=== PATIENT | female | born 1980 | race Caucasian/White ===

== ENCOUNTER 2023-02-20 09:48 | Outpatient (OUT) | payer OTHER, SELFPAY ==
--- NOTE | 2023-02-20 09:59 | US_ITS ---
[address] [address] Patient Name: HILLARY ALFARO MRN: [id number] date: 1980 Sex: F Assigned Patient Location: US Current Patient Location: Accession/Order Number: [id number] Exam Date: 02/20/2023 10:16 Report Date: 02/21/2023 09:10 At the request of: IVAN KARIMI Procedure: US OB transvaginal EXAMINATION: US OB transvaginal HISTORY: Missed Menses N92.6 COMPARISON: No relevant comparison available. FINDINGS: Transvaginal images Hilario intrauterine gestation Gestational sac: 3.31 cm, 8 weeks 2 days CRL: 2.71 cm, 9 weeks 4 days Yolk sac: 2.3 mm Heart rate: 179 bpm Cervix: Closed, 4.1 cm Uterus: Normal, anteverted The ovaries are normal in appearance Clinical age: 10 weeks 1 day Clinical JALIL: 09/17/2023 Ultrasound age: 9 weeks 4 days Ultrasound JALIL: 09/21/2023 US/US OB transvaginal IMPRESSION: Hilario intrauterine gestation measuring 9 weeks 4 days Electronically authenticated by: RIMMA BATRES Date: 02/21/2023 09:10
== END 2023-02-20 09:49 | disposition home or self-care (01) ==
LOC: US 09:48
PROVIDERS: PCP Family Medicine; Visit Provider Obstetrics & Gynecology
DX: Z34.91 Encounter for supervision of normal pregnancy, unspecified, first trimester (principal); N92.6 Irregular menstruation, unspecified
CPT/HCPCS: 76817

== ENCOUNTER 2023-02-27 07:35 | Outpatient (OUT) | payer OTHER, SELFPAY ==
[2023-02-27 08:11] LABS: Basophils Percent Auto 0.3 % (0.2-2.0); Eosinophils Absolute Auto 0.2 10^3/uL (0.0-0.7); Eosinophils Percent Auto 2.4 % (0.9-7.0); Hematocrit 40.1 % (36.0-48.0); Hemoglobin 13.7 g/dL (12.0-16.0); Immature Granulocytes Abs Auto 0.01 10^3/uL (0.00-0.03); Immature Granulocytes Pct Auto 0.1 % (0.0-0.5); Lymphocytes Absolute Auto 1.3 10^3/uL (1.2-3.8); Lymphocytes Percent Auto 19.3 % (20.5-60.0); Mean Corpuscular HGB Conc 34.2 g/dL (29.9-35.2); Mean Corpuscular Hemoglobin 30.6 pg (26.7-34.0); Mean Corpuscular Volume 89.7 fL (81.0-99.0); Mean Platelet Volume 10.1 fL (9.5-13.5); Monocytes Absolute Auto 0.5 10^3/uL (0.3-0.8); Monocytes Percent Auto 6.8 % (1.7-12.0); Neutrophils Absolute Auto 4.9 10^3/uL (1.4-6.5); Neutrophils Percent Auto 71.1 % (43.0-75.0); Platelet Count 248 10^3/uL (150-450); Red Blood Count 4.47 10^6/uL (4.20-5.40); Red Cell Distribution Width 13.2 % (11.0-15.0); White Blood Count 6.9 10^3/uL (4.0-11.0)
[2023-02-27 08:23] LABS: Thyroid Stimulating Hormone 1.386 uIU/mL (0.358-3.740)
[2023-02-27 08:29] LABS: Estimated Average Glucose 100 mg/dL; Glycohemoglobin A1C 5.1 % (4.5-6.2)
[2023-02-28 06:08] LABS: Rubella Antibodies, IgG 3.04 index (Immune >0.99)
[2023-02-28 07:08] LABS: HBsAg Screen Negative (Negative); HCV Ab Non Reactive (Non Reactive); HIV Ab/p24 Ag Screen Non Reactive (Non Reactive)
[2023-02-28 10:08] LABS: Rapid Plasma Reagin, Quant Non Reactive (NonRea<1:1)
== END 2023-02-27 07:36 | disposition home or self-care (01) ==
LOC: LAB 07:36
PROVIDERS: PCP Family Medicine; Visit Provider Obstetrics & Gynecology
DX: Z34.80 Encounter for supervision of other normal pregnancy, unspecified trimester (principal); N92.6 Irregular menstruation, unspecified
CPT/HCPCS: 36415; 83036; 84443; 85025; 86592; 86762; 86803; 86850; 86900; 86901; 87086; 87340; 87389

== ENCOUNTER 2023-04-22 19:50 | Outpatient (REF) | payer OTHER, SELFPAY ==
[2023-04-27 14:12] LABS: Age Gdln ACOG Testing Note (.); HPV Aptima Negative (Negative); IGP, Aptima HPV, rfx 16/18,45 Note (.)
== END 2023-04-22 19:51 | disposition home or self-care (01) ==
LOC: LAB 19:50
PROVIDERS: PCP Family Medicine; Visit Provider Obstetrics & Gynecology
DX: Z01.419 Encounter for gynecological examination (general) (routine) without abnormal findings (principal)
CPT/HCPCS: 87624; G0145

== ENCOUNTER 2023-04-24 07:16 | Outpatient (OUT) | payer OTHER, SELFPAY ==
[2023-04-26 00:06] LABS: AFP Value 46.2 ng/mL (.); Gest. Age on Collection Date 18.6 weeks (.); Insulin Dep Diabetes No (.); Maternal Age At EDD 43.8 yr (.); OSBR Risk 1 IN 10000 (.); Results Report (.)
== END 2023-04-24 07:17 | disposition home or self-care (01) ==
LOC: LAB 07:17
PROVIDERS: PCP Family Medicine; Visit Provider Obstetrics & Gynecology
DX: Z34.92 Encounter for supervision of normal pregnancy, unspecified, second trimester (principal)
CPT/HCPCS: 36415; 82105

== ENCOUNTER 2023-06-05 07:14 | Outpatient (OUT) | payer OTHER, SELFPAY ==
[2023-06-05 08:29] LABS: Basophils Percent Auto 0.3 % (0.2-2.0); Eosinophils Absolute Auto 0.2 10^3/uL (0.0-0.7); Hematocrit 36.3 % (36.0-48.0); Hemoglobin 11.8 g/dL (12.0-16.0); Immature Granulocytes Abs Auto 0.03 10^3/uL (0.00-0.03); Immature Granulocytes Pct Auto 0.3 % (0.0-0.5); Lymphocytes Absolute Auto 1.5 10^3/uL (1.2-3.8); Lymphocytes Percent Auto 16.1 % (20.5-60.0); Mean Corpuscular HGB Conc 32.5 g/dL (29.9-35.2); Mean Corpuscular Hemoglobin 31.3 pg (26.7-34.0); Mean Corpuscular Volume 96.3 fL (81.0-99.0); Mean Platelet Volume 9.9 fL (9.5-13.5); Monocytes Absolute Auto 0.7 10^3/uL (0.3-0.8); Monocytes Percent Auto 7.2 % (1.7-12.0); Neutrophils Absolute Auto 6.7 10^3/uL (1.4-6.5); Neutrophils Percent Auto 74.1 % (43.0-75.0); Platelet Count 232 10^3/uL (150-450); Red Blood Count 3.77 10^6/uL (4.20-5.40); Red Cell Distribution Width 14.1 % (11.0-15.0); White Blood Count 9.1 10^3/uL (4.0-11.0)
[2023-06-05 08:33] LABS: Glucose 1 Hour 122 mg/dL
== END 2023-06-05 07:15 | disposition home or self-care (01) ==
LOC: LAB 07:16
PROVIDERS: PCP Family Medicine; Visit Provider Obstetrics & Gynecology
DX: Z34.92 Encounter for supervision of normal pregnancy, unspecified, second trimester (principal)
CPT/HCPCS: 36415; 82950; 85025

== ENCOUNTER 2023-06-24 09:07 | Outpatient (OUT) | payer OTHER, SELFPAY ==
--- NOTE | 2023-06-24 09:10 | US_ITS ---
[address] [address] Patient Name: HILLARY ALFARO MRN: [id number] date: 1980 Sex: F Assigned Patient Location: US Current Patient Location: US Accession/Order Number: [id number] Exam Date: 06/24/2023 09:11 Report Date: 06/24/2023 09:57 At the request of: HENRY AGUILA Procedure: US OB growth EXAMINATION: US OB growth HISTORY: SGA COMPARISON: 02/20/2023 FINDINGS: Heart Rate: 131.0 bpm Amniotic Fluid Volume: 15.4 cm Number: 1.0 Position: Cephalic presentation, longitudinal lie Maximum Vertical Pocket: 3.8 cm cm 4.9 cm cm 3.4 cm cm 3.4 cm cm BIOMETRY: BPD: 6.8 cm cm; 27 weeks 2 days; 20% HC: 25.7 cmcm; 27 weeks 6 days , 22% AC: 22.7 cm cm; 27 weeks 1 days, 21% FL: 5.4 cm cm; 28 weeks 5 days; 62.2 % % EFW: 1122.9 grams, 2 lbs. 8 oz., 33% FL/AC: 24.0 FL/BPD: 80.4 HC/AC: 1.1 GESTATIONAL AGE: Age by EDC: 27 weeks 6 days JALIL by EDC: 09/17/2023 Age by US: 27 weeks 5 days JALIL by US: 09/18/2023 US/US OB growth IMPRESSION: Normal interval growth Electronically authenticated by: RIMMA BATRES Date: 06/24/2023 09:57
--- OUTSIDE RECORDS SUMMARY | 2023-06-24 09:16 | XMS_ITS | CCD ---
Author Name Unknown Address [address] [place] [address] Organization [facility] Care Team Providers Care Impress Associate Name Role Phone Megan Oconnor Unavailable ANDRES, DR LEE Admitting Unavailable KARASIK, DR LEE Attending Unavailable REQUEST, NONE LISTED Primary Care Unavaila ble KARASIK, DR LEE Consulting Unavailable ZIEBER, DR ALEXI Johnson Consulting Unavailable HOY, DR GEORGE Admitting Unavailable HOY, DR GEORGE Attending Unavailable REQUEST, NONE LISTED Primary Care Unavaila ble HOY, DR GEORGE Consulting Unavailable KARASIK, DR LEE Admitting Unavailable KARASIK, DR LEE Attending Unavailable REQUEST, DR REVELES LISTED Primary Care Unavaila ble KARASIK, DR LEE Consulting Unavailable KARASIK, DR LEE Admitting Unavailable KARASIK, DR LEE Attending Unavailable REQUEST, NONE LISTED Primary Care Unavaila ble KARASIK, DR LEE Consulting Unavailable WEST, DR RIMMA Harrison Consulting Unavailable KARASIK, DR LEE Admitting Unavailable KARASIK, DR LEE Attending Unavailable REQUEST, DR REVELES LISTED Primary Care Unavaila ble KARASIK, DR LEE Consulting Unavailable KARASIK, DR LEE Admitting Unavailable KARASIK, DR LEE Attending Unavailable REQUEST, DR REVELES LISTED Primary Care Unavaila ble KARASIK, DR LEE Consulting Unavailable KARASIK, DR LEE Admitting Unavailable KARASIK, DR LEE Attending Unavailable REQUEST, NONE LISTED Primary Care Unavaila ble KARASIK, DR LEE Consulting Unavailable ZIEBER, DR ALEXI Johnson Consulting Unavailable KARAMLOU, THOMAS Consulting Unavailable SHARPZACHARIAH Consulting Unavailable JELLY II, REYNA Consulting Unavailable KARASIK, DR LEE Admitting Unavailable KARASIK, DR LEE Attending Unavailable REQUEST, NONE LISTED Primary Care Unavaila ble KARASIK, DR LEE Consulting Unavailable Abel Sun Primary Care Provider RIMMA STERLING Attending Unavailable ABEL SUN Primary Care Unavailable YULISSA JAIME Referring Unavailable YULISSA JAIME Attending Unavailable ABEL SUN Primary Care Unavailable HENRY AGUILA Attending Unavailable IVAN KARIMI Attending Unavailable Allergies Allergy Classification Reported Allergen(s) Allergy Type Date of Onset Reaction(s) Facility (4 sources) Seasonal allergy; Translations: [SEASONAL ALLERGIES] Allergy to substance 05-11-2014 Cough [facility] Medications Current Medications Medication Drug Class(es) Dates Sig (Normalized) Sig (Original) [id number] 200 actuat albuterol 0.09 mg/actuat metered dose inhaler (1 source) beta2-Adrenergic Agonist Start: 2 take 2 puff(s) by inhalation every four hours as needed Albuterol Sulfate HFA 108 (90 Base) MCG/ACT 2 puffs as needed Inhalation every 4 hrs Nov, Active Clotrimazole (1 source) Azole Antifungal Start: 2 Clotrimazole 1 % 1 application to affected area Externally Twice a day for 28 day(s) Nov, Active methylPREDNISolone 4 mg oral tablet (1 source) Corticosteroid Start: 2 methylPREDNISolone 4 MG as directed Orally Once a day for 6 days Nov, Active Completed/Discontinued Medications Medication Drug Class(es) Dates Sig (Normalized) Sig (Original) cetirizine hydrochloride 10 mg oral capsule (3 sources) Histamine-1 Receptor Antagonist Cetirizine (ZYRTEC) 10 mg cap Take 1 capsule by mouth as needed. 0 Active Comment on above: Take 1 capsule by [facility] as needed. Docusate (3 sources) DOCUSATE SODIUM (COLACE ORAL) Take 1 tablet by mouth as needed. 0 Active Comment on above: [facility]. fluticasone propionate 0.05 mg/actuat metered dose nasal spray (3 sources) Corticosteroid fluticasone (FLONASE) 50 mcg/actuation nasal spray Indications: Bilateral sensorineural hearing loss , Autoimmune disorder of inner ear Use 1 Clinton in each nostril as needed. 0 Active Comment on above: Use 1 Clinton in each nostril as needed. multivitamin (DAILY MULTIPLE) tablet (3 sources) take 1 tablet by mouth once daily multivitamin (DAILY MULTIPLE) tablet Take 1 tablet by mouth once daily. 0 Active Comment on above: Take 1 tablet by yesika once daily. predniSONE 10 mg oral tablet (3 sources) Start: 09-02-2017 predniSONE (DELTASONE) 10 mg tablet Take by mouth four (4) tabs x3 days; then three (3) tabs x3days; then two (2) tabs x3 days; then one (1) tab a day x3 days 30 tablet 0 09/02/2017 Active Comment on above: Take by mouth four ( 4) tabs x3 days; then three (3) tabs x3days; then two (2) tabs x3 days; then one (1) tab a day x3 days Triamcinolone (1 source) Corticosteroid Start: 12-19-2019 Kenalog -40 mg Nov, 40 mg Problems Active Problems Problem Classification Problem Date Documented Date Episodic/Chronic Deficiency and other anemia (4 sources) Iron deficiency anemia, unspecified; Translations: [IRON DEFICIENCY ANEMIA UNSPECIFIED] Onset: 07-29-2022 Episodic Deficiency and other anemia (1 source) Anemia, unspecified; Translations: [ANEMIA UNSPECIFIED] Onset: 07-30-2022 Episodic Other complications of (5 sources) Missed ; Translations: [MISSED ] Onset: 07-17-2022 Episodic Other ear and sense organ disorders (1 source) Unspecified sensorineural hearing loss; Translations: [UNS SENSORINEURAL HEARING LOSS] Onset: 07-22-2022 Chronic Other ear and sense organ disorders (4 sources) Asymmetrical sensorineural hearing loss; Translations: [Sensorineural hearing loss, bilateral] Onset: 09-28-2017 Chronic Other ear and sense organ disorders (4 sources) Sensorineural hearing loss, bilateral; Translations: [Sensorineural hearing loss, bilateral] Onset: 10-15-2016 Chronic Other ear and sense organ disorders (1 source) Cochlear prosthesis in situ; Translations: [Cochlear implant status] Chronic Other ear and sense organ disorders (3 sources) Sensorineural hearing loss in left ear; Translations: [Unspecified sensorineural hearing loss] 08-13-2017 Chronic Other and delivery including normal (9 sources) Encounter for supervision of other normal , first trimester; Translations: [Encounter for supervision of normal , unspecified, unspecified trimester] Onset: 06-20-2022 Episodic Spontaneous (1 source) Complete or unspecified spontaneous without complication; Translations: [COMPLETE/UNS SPONT AB W/O COMP] Onset: 07-17-2022 Episodic Unclassified (1 source) CONTACT W/AND (SUSP) EXPOS COVID-19; Translations: [CONTACT W/AND (SUSP) EXPOS COVID-19] Onset: 07-17-2022 Past or Other Problems Problem Classification Problem Date Documented Date Episodic/Chronic Chronic obstructive pulmonary disease and bronchiectasis (1 source) Bronchitis, not specified as acute or chronic Onset: 11-24-2021 Resolved: 11-24-2021 Episodic Conditions associated with dizziness or vertigo (6 sources) Vertigo of central origin; Translations: [Vertigo of central origin] Onset: 05-24-2014 05-24-2014 Episodic Immunizations and screening for infectious disease (1 source) Encounter for screening for human papillomavirus (HPV); Translations: [ENC SCREENING HUMAN PAPILLOMAVIRUS] Onset: 11-30-2021 Episodic Mycoses (1 source) Superficial mycosis, unspecified Onset: 11-24-2021 Resolved: 11-24-2021 Episodic Other aftercare (3 sources) Cochlear prosthesis in situ; Translations: [Encounter for other specified surgical aftercare] Onset: 09-29-2017 09-29-2017 Episodic Other screening for suspected conditions (not mental disorders or infectious disease) (4 sources) Encounter for screening for malignant neoplasm of cervix; Translations: [ENC SCREENING MALIG NEOPLASM CERV] Onset: 11-27-2021 Episodic Results Test Name Value Interpretation Reference Range Facility [facility] 10[facility]10-2022 [facility] Tele[facility] (HNQ) AMY ALFARO ([id number]) 1980 F Date Time Provider Department 10/10/22 LEO ATKINSON During your visit today, we recorded the following information about you: Leo Atkinson 10/10/2022 3:52 PM Signed Housekeeping/Laundry: Katerina Mina Patient: Hasmukh Alfaro 1980 Clinic: [facility] Scientific Software Developer: Dr. Yulissa Jaime Appointment Length: 45 Minutes What are you looking to accomplish?: I?d like to learn more about the Nucleus 8 and the process of upgrading Recipient's Stated Reason for Upgrading ? Clinic Request - Scientific Software Developer recommended it ? Useful Life - Processor more than 5 years old ? Change in Hearing Needs - Hearing performance improvement ? Quality of Life ? Technology Advancement New Technology Education ? Reviewed features and benefits of the Nucleus 8 sound processor ? Explained what is the same vs. what is different between current and new processor Reviewed Order Form Options ? Recipient will move forward with the N8 Upgrade once she receives the estimated out of pocket cost from insurance ? Recipient would like to take advantage of the complementary RTW (ready to wear) ? Processor will ship to Recipients Home Upgrade Process ? Discussed upgrade process and Cochlear services ? Explained what the process entails and what the next steps are Acquisition Methods ? Recipient will receive [id number] cost estimate once order placed Next Steps ? If recipient decides to move forward with pursuing a Nucleus 8 upgrade and provides us with the necessary order information, we will start an order on their behalf. You will hear from Cochlear?s Investigator Utility Bill Complaints team, via email/DocuSign to gain your approval or regarding an LMN to allow this patient to move forward in the process. Following completion of the upgrade process, I will invite the recipient to schedule time for a complimentary onboarding with our [employer] team so they can begin to maximize the use of their new Cochlear equipment. 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 - fluticasone (FLONASE) 50 mcg/actuation nasal spray Use 1 Clinton in each nostril as needed. - multivitamin (DAILY MULTIPLE) tablet Take 1 tablet by mouth once daily. - Cetirizine (ZYRTEC) 10 mg cap Take 1 capsule by mouth as needed. Problem List As Of Date 10/10/2022 Noted Resolved Vertigo of central origin [H81.4] 05/24/2014 Peripheral vertigo, unspecified [H81.399] 05/24/2014 Sensorineural hearing loss, bilateral [H90.3] 10/15/2016 Left-sided sensorineural hearing loss [H90.5] Sensorineural hearing loss, asymmetrical [H90.3]09/28/2017 Cochlear implant follow-up [Z48.89, Z96.21] 09/29/2017 Encounter Status:Closed by LEO ATKINSON on 10/10/22 [facility] CNOVon 09-24-2022 CNOV Office Visit (OTOLCR ) AMY ALFARO ([id number]) 1980 F Date Time Provider Department 09/24/22 9:30 AM RIMMA STERLING OTOLJAMES During your visit today, we recorded the following information about you: Rimma Sterling PA-C 09/24/2022 9:53 AM Signed History of Present Illness Ms. AMY ALFARO is a 41 year old year old female presenting for: referred by SELF And is a patient of DO Abel Card DO [address] [id number] Communication will be via the electronic record and letter. Returns for follow-up of Left cochlear implant placed 09/02/[address] Yeung. Reports that the cochlear implant has been very beneficial for her hearing. Has had to replace the coil because it stopped functioning. Otalgia: no pain at magnet site since switching magnet strength one year ago Otorrhea: denies Ear Pressure/Fullness: denies Hearing Loss: reports hearing stable in Right, got a new hearing aid last year Tinnitus: complains of intermittent bilateral tinnitus Dizziness/Imbalance: denies Facial Numbness, Weakness or Tingling: denies Medical History: ACTIVE PROBLEM LIST Vertigo of Central Origin Peripheral Vertigo, Unspecified Sensorineural Hearing Loss, Bilateral Left-Sided Sensorineural Hearing Loss Sensorineural Hearing Loss, Asymmetrical Cochlear Implant Follow-Up Surgical History: PAST SURGICAL HISTORY Procedure Laterality Date DENTAL SURGERY PROCEDURE wisdom teeth extraction PAST SURGICAL HISTORY OF none Allergies: ALLERGIES Allergen Reactions Seasonal Allergies Cough Medications: Current Outpatient Medications on File Prior to Visit Medication Sig predniSONE (DELTASONE) 10 mg tablet Take by mouth four (4) tabs x3 days; then three (3) tabs x3days; then two (2) tabs x3 days; then one (1) tab a day x3 days DOCUSATE SODIUM (COLACE ORAL) Take 1 tablet by mouth as needed. fluticasone (FLONASE) 50 mcg/actuation nasal spray Use 1 Clinton in each nostril as needed. multivitamin (DAILY MULTIPLE) tablet Take 1 tablet by mouth once daily. Cetirizine (ZYRTEC) 10 mg cap Take 1 capsule by mouth as needed. No current facility-administered medications on file prior to visit. Social History: FAMILY HISTORY Problem Relation Age of Onset Allergies Mother seasonal Osteoporosis Mother low bone density Allergies Father seasonal Diabetes Father Allergies Sister seasonal Allergies Brother seasonal Asthma Maternal Grandmother Breast Cancer Paternal Grandmother Diabetes Maternal Grandfather Heart Maternal Grandfather Diabetes Maternal Aunt Diabetes Maternal Uncle Diabetes Paternal Aunt Diabetes Paternal Uncle No Ocular Disease No Family History Social History Tobacco Use Smoking status: Never Smokeless tobacco: Never Substance Use Topics Alcohol use: No Drug use: No Review of Systems: Positive: As above Negative: Fever, shortness of breath Objective: Last menstrual period 07/25/2017. Appearance: Well appearing, alert, in no acute distress, well-hydrated, well nourished. Communication: Able to speak and communicates clearly Head/Face: normocephalic, no masses, lesions, tenderness or abnormalities Facial nerve: Normal 1/6 bilaterally Skin: no skin lesions or scarring on face Ophthalmic: Full ocular motility intact; pupils symmetric Ears: AD EAC clear. TM intact without perforation or retraction. Middle ear aerated. EAC clear. TM intact without perforation or retraction. Middle ear aerated. Post-auricular incision well healed. Magnet site without any erythema or inflammation. Nose: external exam with straight profile Oropharynx: Uvula hangs midline; mucosa is pink and moist; tonsils present Neck: No cervical or supraclavicular lymphadenopathy Neuro/Psych.: Alert and oriented - no nystagmus Cranial nervesIII, IV, : EOM normal VII: Normal strength in all divisions IX, X: Normal voice, platal elevation and sensation XII: Tongue mobility normal Gait: normal for age Assessment: Z96.[address] (primary encounter diagnosis) H90.3 Sensorineural hearing loss, asymmetrical H90.3 Sensorineural hearing loss, bilateral Plan: Established with practice of Dr. Audra Umanzor for management of cochlear implant Medically cleared for any replacement or upgrade cochlear implant parts Follow-up in 2-3 years to stay established with practice Rimma Sterling PA-C Otology Medical Decision Making: Problems: Low: Stable chronic illness Risk: Minimal: Minimal risk from testing/treatment Medical Decision Making Level: 2 - Straightforward Rimma Sterling PA-C 09/24/2022 9:[address] Audra Umanzor use his name on paperwork Referring Provider: SELF [[id number]] Allergies As of Date: 09/24/2022 Noted Allergy Reaction SEASONAL ALLERGIES 1 (more content not included)... Normal [facility] CBC AUTO DIFFon 07-29-2022 BASO # 0.0 103/ul Normal 0.0-0.1 [facility] Comment on above: Performed By: #### C BC #### [facility] [address] [address] [address] Jani Haywood Basophils/100 WBC (Bld) 0.6 % Normal 0.2-2.0 [facility] Comment on above: Performed By: #### C BC #### [facility] [address] [address] [address] Jani Haywood EO # 0.1 103/ul Normal 0.0-0.7 [facility] Comment on above: Performed By: #### C BC #### [facility] [address] [place] [address] Dr. Jani Haywood Eosinophils/100 WBC (Bld) 2.5 % Normal 0.9-7.0 [facility] Comment on above: Performed By: #### C BC #### [facility] [address] [place] [address] Dr. Jani Haywood Erythrocyte distribution width (RBC) [Ratio] 13.7 % Normal 11.0-15.0 [facility] Comment on above: Performed By: #### C BC #### [facility] [address] [place] [address] Dr. Jani Haywood Hematocrit (Bld) [Volume fraction] 40.3 % Normal 36.0-48.0 [facility] Comment on above: Performed By: #### C BC #### [facility] [address] [place] [address] Dr. Jani Haywood Hemoglobin (Bld) [Mass/Vol] 12.7 g/dL Normal 12.0-16.0 [facility] Comment on above: Performed By: #### C BC #### [facility] [address] [place] [address] Dr. Jani Haywood IG # 0.01 10e3/ul Normal 0.00-0.03 [facility] Comment on above: Performed By: #### C BC #### [facility] [address] [place] [address] Dr. Jani Haywood IG % 0.2 % Normal 0.0-0.5 [facility] Comment on above: Performed By: #### C BC #### [facility] [address] [place] [address] Dr. Jani Haywood LYMPH # 1.8 103/ul Normal 1.2-3.8 [facility] Comment on above: Performed By: #### C BC #### [facility] [address] [place] [address] Dr. Jani Haywood Lymphocytes/100 WBC (Bld) 35.2 % Normal 20.5-60.0 [facility] Comment on above: Performed By: #### C BC #### [facility] [address] [place] [address] Dr. Jani Haywood MANUAL DIFF REQ NO Normal [facility] Comment on above: Performed By: #### C BC #### [facility] [address] [place] [address] Dr. Jani Haywood MCH (RBC) [Entitic mass] 30.5 pg Normal 26.7-34.0 [facility] Comment on above: Performed By: #### C BC #### [facility] [address] [place] [address] Dr. Jani Haywood MCHC (RBC) [Mass/Vol] 31.5 g/dL Normal 29.9-35.2 [facility] Comment on above: Performed By: #### C BC #### [facility] [address] [place] [address] Dr. Jani Haywood MCV (RBC) [Entitic vol] 96.9 fL Normal 81.0-99.0 [facility] Comment on above: Performed By: #### C BC #### [facility] [address] [place] [address] Dr. Jani Haywood MONO # 0.4 103/ul Normal 0.3-0.8 [facility] Comment on above: Performed By: #### C BC #### [facility] [address] [place] [address] Dr. Jani Haywood Monocytes/100 WBC (Bld) 8.1 % Normal 1.7-12.0 [facility] Comment on above: Performed By: #### C BC #### [facility] [address] [place] [address] Dr. Jani Haywood NEUT # 2.8 103/ul Normal 1.4-6.5 [facility] Comment on above: Performed By: #### C BC #### [facility] [address] [place] [address] Dr. Jani Haywood Neutrophils/100 WBC (Bld) 53.4 % Normal 43.0-75.0 [facility] Comment on above: Performed By: #### C BC #### [facility] [address] [address] [address] Jani Haywood Platelet mean volume (Bld) [Entitic vol] 10.0 fL Normal 9.5-13.5 [facility] Comment on above: Performed By: #### C BC #### [facility] [address] [address] [address] Jani Haywood PLT 271 103/ul Normal 150-450 [facility] Comment on above: Performed By: #### C BC #### [facility] [address] [address] [address] Jani Haywood RBC 4.16 106/ul Critically low 4.20-5.40 [facility] Comment on above: Performed By: #### C BC #### [facility] [address] [place] [address] Dr. Jani Haywood WBC 5.2 103/ul Normal 4.0-11.0 [facility] Comment on above: Performed By: #### C BC #### [facility] [address] [place] [address] Dr. Jani Haywood IRONon 07-29-2022 Iron [Mass/Vol] 64.0 ug/dL Normal 50.0-170.0 [facility] Comment on above: Performed By: #### A 1C #### [facility] [address] [place] [address] Dr. Jani Haywood PROF 14(COMP METB)on 023 Albumin [Mass/Vol] 3.5 g/dL Normal 3.4-5.[address] [facility] Comment on above: Performed By: #### C MP #### [facility] [address] [place] [address] Dr. Jani Haywood Albumin/Globulin [Mass ratio] 0.9 {ratio} Normal [facility] Comment on above: Performed By: #### C MP #### [facility] [address] [place] [address] Dr. Jani Haywood ALP [Catalytic activity/Vol] 73 U/L Normal 46-116 [facility] Comment on above: Performed By: #### C MP #### [facility] [address] [address] [address] Jani Haywood ALT [Catalytic activity/Vol] 12 U/L Critically low 14-59 [facility] Comment on above: Performed By: #### C MP #### [facility] [address] [address] [address] Jani Haywood Anion gap [Moles/Vol] 11.0 mmol/L Normal [facility] Comment on above: Performed By: #### C MP #### [facility] [address] [address] [address] Jani Haywood AST [Catalytic activity/Vol] 13 U/L Critically low 15-37 [facility] Comment on above: Performed By: #### C MP #### [facility] [address] [place] [address] Dr. Jani Haywood Bilirubin [Mass/Vol] 0.5 mg/dL Normal 0.2-1.0 [facility] Comment on above: Performed By: #### C MP #### [facility] [address] [place] [address] Dr. Jani Haywood Calcium [Mass/Vol] 8.6 mg/dL Normal 8.5-10.1 [facility] Comment on above: Performed By: #### C MP #### [facility] [address] [place] [address] Dr. Jani Haywood Chloride [Moles/Vol] 105 mmol/L Normal 98-107 [facility] Comment on above: Performed By: #### C MP #### [facility] [address] [address] [address] Jani Haywood CO2 [Moles/Vol] 28.8 mmol/L Normal 21.0-32.0 [facility] Comment on above: Performed By: #### C MP #### [facility] [address] [address] [address] Jani Haywood Creatinine [Mass/Vol] 0.87 mg/dL Normal 0.55-1.02 [facility] Comment on above: Performed By: #### C MP #### [facility] [address] [place] [address] Dr. Jani Haywood EGFR-AF CYMRO >60 Normal >=60 [facility] Comment on above: Performed By: #### C MP #### [facility] [address] [address] [address] Jani Haywood EGFR-NON AF CYMRO >60 Normal >=60 [facility] Comment on above: Performed By: #### C MP #### [facility] [address] [address] [address] Jani Haywood Globulin (S) [Mass/Vol] 3.7 g/dL Normal [facility] Comment on above: Performed By: #### C MP #### [facility] [address] [address] [address] Jani Haywood Glucose [Mass/Vol] 95 mg/dL Normal 74-106 [facility] Comment on above: Performed By: #### C MP #### [facility] [address] [address] [address] Jani Haywood Potassium [Moles/Vol] 3.8 mmol/L Normal 3.5-5.1 [facility] Comment on above: Performed By: #### C MP #### [facility] [address] [place] [address] Dr. Jani Haywood Protein [Mass/Vol] 7.2 g/dL Normal 6.4-8.2 [facility] Comment on above: Performed By: #### C MP #### [facility] [address] [address] Dr. Jani Haywood Sodium [Moles/Vol] 141 mmol/L Normal 136-[address] [facility] Comment on above: Performed By: #### C MP #### [facility] [address] [address] [address] Jani Haywood Urea nitrogen [Mass/Vol] 12.0 mg/dL Normal 7.0-18.0 [facility] Comment on above: Performed By: #### C MP #### [facility] [address] [address] [address] Jani Haywood Urea nitrogen/Creatinine [Mass ratio] 13.8 mg/mg Normal [facility] Comment on above: Performed By: #### C MP #### [facility] [address] [place], [place] [address] Dr. Jani Haywood Covid-19 PCR ([facility])on 06-23 SARS-CoV-2 (COVID-19) RNA CAROLE+probe Ql (Unsp spec) Not detected Normal NOT DETECTED [facility] Comment on above: Result Comment: This test is not yet approved or cleared by the [place] FDA. When there are no FDA-approved or cleared tests available, and other criteria are met, FDA can make tests available under an emergency access mechanism called an Emergency Use Authorization (EUA). The EUA for this test is supported by the Environmental Technician of Health and Human Service's (HHS's) declaration that circumstances exist to justify the emergency use of in vitro diagnostics for the detection and/or diagnosis of the virus that causes COVID-19. This EUA will remain in effect (meaning this test can be used) for the duration of the COVID-19 declaration justifying emergency of IVDs, unless it is terminated or revoked by FDA (after which the test may no longer be used). When diagnostic testing is negative, the possibility of a false negative should be considered in the context of a patient's recent exposures and the presence of clinical signs and symptoms consistent with SARS-CoV-2. Performed By: #### [facility] #### [facility] [address] [place], [place] [address] Dr. Jani Haywood US PREG <14 WKSon 07-16-2022 US PREG <14 WKS EXAMINATION: US PREG <14 WKS HISTORY: Spontaneous without complication COMPARISON: Ultrasound transvaginal 06/18/2022 FINDINGS: GESTATIONAL SAC: Present. YOLK SAC: Absent POLE: Present. CARDIAC: Absent UTERUS: Normal size and appearance. OVARIES: Right: Not seen. Left: Not seen. CERVIX: 3.0 cm in length and closed. CUL-DE-SAC: Normal. OTHER: None. AGE BY LMP: 14 weeks 2 days JALIL BY LMP: 01/12/2023 AGE BY US CRL: 11 weeks 3 days JALIL BY US CRL: 02/01/2023 IMPRESSION: 1. Intrauterine with no detectable heartbeat. 2. Dr. Carter was notified of these findings by the finish painter at time of imaging. Electronically authenticated by: ALEXI BRANCH Date: 2022-07-16 13:36 Normal [facility] HEP B SURFACE ANTIGEN SCREEN on 07-03-2022 HBsAg Screen Negative Normal Negative [facility] Comment on above: Performed By: #### A 1C #### [facility] [address] [place] [address] Dr. Jani Haywood HEPATITIS C VIRUS AB W/ REFL EX QUANTon 07-03-2022 HCV AB <0.1 Normal 0.0-0.9 [facility] Comment on above: Performed By: #### H CVPCRR #### [facility] [address] [place] [address] Dr. Jani Haywood Interpretation: Comment Normal [facility] Comment on above: Result Comment: Nega tive Not infected with HCV, unless recent infection is suspected or other evidence exists to indicate HCV infection. Performed By: #### H CVPCRR #### [facility] [address] [place] [address] Dr. Jani Haywood HIV 1 AND 2 WITH REFLEXon HIV Screen 4th Generation wRfx Non-Reactive Normal Non Reactive [facility] Comment on above: Result Comment: HIV Negative HIV-1/HIV-2 antibodies and HIV-1 p24 antigen were NOT detected. There is no laboratory evidence of HIV infection. Performed By: #### H IV12 #### [facility] [address] [place] [address] Dr. Jani Haywood RPR QUANTon 07-03-2022 Rapid Plasma Reagin, Quant Non-Reactive Normal NonRea<1:1 [facility] Comment on above: Result Comment: Plea se Note: This test does not meet current guidelines for screening and diagnosis of syphilis. This test is intended for following treatment response in patients being treated for syphilis infection. To screen for syphilis infection, a reflex cascade that includes both RPR and a treponema-specific assay should be utilized, such as Treponema pallidum (Syphilis) Screening [place] (916928) or Rapid Plasma Reagin (RPR) Test With Reflex to Quantitative RPR and Confirmatory Treponema pallidum Antibodies (982495). Performed By: #### R PRQ #### [facility] [address] [place] [address] Dr. Jani Haywood RUBELLA AB IGGon 07-03-2022 Rubella Antibodies, IgG 2.92 index Normal Immune >0.99 [facility] Comment on above: Result Comment: Non- immune <0.90 Equivocal 0.90 - 0.99 Immune >0.99 Performed By: #### A 1C #### [facility] [address] [place] [address] Dr. Jani Haywood CBC AUTO DIFFon 07-02-2022 BASO # 0.1 103/ul Normal 0.0-0.1 [facility] Comment on above: Performed By: #### C BC #### [facility] [address] [place] [address] Dr. Jani Haywood Basophils/100 WBC (Bld) 0.7 % Normal 0.2-2.0 [facility] Comment on above: Performed By: #### C BC #### [facility] [address] [place] [address] Dr. Jani Haywood EO # 0.1 103/ul Normal 0.0-0.7 [facility] Comment on above: Performed By: #### C BC #### [facility] [address] [place] [address] Dr. Jani Haywood Eosinophils/100 WBC (Bld) 1.2 % Normal 0.9-7.0 [facility] Comment on above: Performed By: #### C BC #### [facility] [address] [place] [address] Dr. Jnai Haywood Erythrocyte distribution width (RBC) [Ratio] 13.7 % Normal 11.0-15.0 [facility] Comment on above: Performed By: #### C BC #### [facility] [address] [place] [address] Dr. Jani Haywood Hematocrit (Bld) [Volume fraction] 37.9 % Normal 36.0-48.0 [facility] Comment on above: Performed By: #### C BC #### [facility] [address] [place] [address] Dr. Jani Haywood Hemoglobin (Bld) [Mass/Vol] 12.6 g/dL Normal 12.0-16.0 [facility] Comment on above: Performed By: #### C BC #### [facility] [address] [place] [address] Dr. Jani Haywood IG # 0.02 10e3/ul Normal 0.00-0.03 [facility] Comment on above: Performed By: #### C BC #### [facility] [address] [place] [address] Dr. Jani Haywood IG % 0.3 % Normal 0.0-0.5 [facility] Comment on above: Performed By: #### C BC #### [facility] [address] [place] [address] Dr. Jani Haywood LYMPH # 1.6 103/ul Normal 1.2-3.8 [facility] Comment on above: Performed By: #### C BC #### [facility] [address] [place] [address] Dr. Jani Haywood Lymphocytes/100 WBC (Bld) 21.5 % Normal 20.5-60.0 [facility] Comment on above: Performed By: #### C BC #### [facility] [address] [place] [address] Dr. Jani Haywood MANUAL DIFF REQ NO Normal [facility] Comment on above: Performed By: #### C BC #### [facility] [address] [place] [address] Dr. Jani Haywood MCH (RBC) [Entitic mass] 30.4 pg Normal 26.7-34.0 [facility] Comment on above: Performed By: #### C BC #### [facility] [address] [place] [address] Dr. Jani Haywood MCHC (RBC) [Mass/Vol] 33.2 g/dL Normal 29.9-35.2 [facility] Comment on above: Performed By: #### C BC #### [facility] [address] [place] [address] Dr. Jani Haywood MCV (RBC) [Entitic vol] 91.3 fL Normal 81.0-99.0 [facility] Comment on above: Performed By: #### C BC #### [facility] [address] [place] [address] Dr. Jani Haywood MONO # 0.5 103/ul Normal 0.3-0.8 [facility] Comment on above: Performed By: #### C BC #### [facility] [address] [address] [address] Jani Haywood Monocytes/100 WBC (Bld) 6.6 % Normal 1.7-12.0 [facility] Comment on above: Performed By: #### C BC #### [facility] [address] [place] [address] Dr. Jani Haywood NEUT # 5.1 103/ul Normal 1.4-6.5 [facility] Comment on above: Performed By: #### C BC #### [facility] [address] [place] [address] Dr. Jani Haywood Neutrophils/100 WBC (Bld) 69.7 % Normal 43.0-75.0 [facility] Comment on above: Performed By: #### C BC #### [facility] [address] [place] [address] Dr. Jani Haywood Platelet mean volume (Bld) [Entitic vol] 10.2 fL Normal 9.5-13.5 [facility] Comment on above: Performed By: #### C BC #### [facility] [address] [place] [address] Dr. Jani Haywood PLT 281 103/ul Normal 150-450 [facility] Comment on above: Performed By: #### C BC #### [facility] [address] [place] [address] Dr. Jani Haywood RBC 4.15 106/ul Critically low 4.20-5.40 [facility] Comment on above: Performed By: #### C BC #### [facility] [address] [place] [address] Dr. Jani Haywood WBC 7.3 103/ul Normal 4.0-11.0 [facility] Comment on above: Performed By: #### C BC #### [facility] [address] [address] [address] Jani Haywood GLYCOHEMOGLOBIN A1Con 2022 ADA RECOMMENDATION SEE BELOW Normal [facility] Comment on above: Result Comment: ADA RECOMMENDED LIMIT 4.0 - 6.0 ADA THERAPEUTIC TARGET < 7.0 ACTION SUGGESTED > 7.0 Performed By: #### A 1C #### [facility] [address] [address] [address] Jani Haywood Glucose [Mass/Vol] 103 mg/dL Normal [facility] Comment on above: Performed By: #### A 1C #### [facility] [address] [place] [address] Dr. Jani Haywood HbA1c (Bld) [Mass fraction] 5.2 % Normal 4.5-6.2 [facility] Comment on above: Performed By: #### A 1C #### [facility] [address] [address] [address] Jani Haywood CRISTELA BOX TEST PT SEND OUTo n 07-02-2022 SENT TO REF LAB 07/02/2022 Normal [facility] Comment on above: Performed By: #### N BOX #### [facility] [address] [place] [address] Dr. Jani Haywood TYPE AND SCREENon 07-02-2022 TYPE AND SCREEN Negative Normal [facility] Comment on above: Performed By: #### A 1C #### [facility] [address] [place] [address] Dr. Jani Haywood US PREG TVon 06-18-2022 US PREG TV EXAMINATION: US PREG TV HISTORY: Missed period COMPARISON: No relevant comparison available. FINDINGS: Gee intrauterine gestation CRL: 2.49 cm, 9 weeks 2 days Heart rate: 182 bpm Clinical age: 10 weeks 2 days Clinical JALIL: 01/12/2023 Ultrasound age: 9 weeks 2 days Ultrasound JALIL: 01/19/2023 Uterus: Normal, anteverted, anteflexed The ovaries are normal in size, contour and echotexture Cervix: Closed, 4.5 cm IMPRESSION: Viable gee intrauterine gestation measuring 9 weeks 2 days Electronically authenticated by: RIMMA BATRES Date: 2022-06-18 16:09 Normal [facility] CNOVon 03-18-2022 CNOV Office Visit (OTAUCR ) AMY ALFARO ([id number]) 1980 F Date Time Provider Department 03/18/22 10:30 AM YULISSA JAIME During your visit today, we recorded the following information about you: ISRAEL Champion 03/18/2022 12:14 PM Signed [facility] [place] [facility] COCHLEAR IMPLANT ADULT PROGRAMMING Name: Amy ALFARO [facility]#: [id number] Date of Service: March 18, 2022 Date of : 1980 Age: [age] year old COCHLEAR IMPLANT INFORMATION (see below for all device details) Updated: March 18, 2022 Right ear: Phonak Audeo RITE Hearing Aid that was fit at an outside facility (November 2021) and is being managed by that facility. Left ear: External Processor: Cochlear [employer] [id number] (Nucleus 7) Processor SN: [id number] Magnet strength: 2 Internal Device: Cochlear CI532 Profile with Slim Modiolar Electrode Array Internal Device SN: [id number] Inactive electrodes: None Surgery Date: 09/02/2017 Initial activation date: 09/29/217 Surgeon: Reyna Yeung M.D. Accessories: Remote Control (CR310) Mini Microphone 2+ Phone Clip HISTORY: Ms. Alfaro was seen for annual evaluation of the device. The patient reported: - Increased difficulty hearing/understanding in the past month - Fit with new Phonak Audeo RITE hearing aid at an outside facility in November 2021 - Pleased with current magnet strength; no retention issues or pain noted - Occasionally streams audio to cochlear implant - Occasional volume adjustments as needed - Replaced microphone protector yesterday AIDED AUDIOMETRIC TESTING: Audiologic testing was completed in the sound field with the speech processor at user settings (Program: 1; Volume: 6; Sensitivity: 12) before programming. See the SmartForm Audiogram for obtained thresholds. Speech perception testing was completed at 60 shop mechanic using recorded stimuli in the sound field at 0 degrees azimuth. NOTE: The contralateral ear was plugged and muffed during testing. The following testing and results were obtained: Pmvtliofq-Harywct-Cms sonant Words (CNC) Test Condition List # Phonemes Words Clinically significant change compared to previous visit? Clinically significant change compared to BEST? Clinically significant change compared to Evaluation (07/19/2014)? Left Ear 6 95% 88% No (84% on 03/18/27) No (92% on 09/29/18) Yes, improved (0%) Bimodal 1 100% 100% No (92% on 03/18/21) No (92% on 09/29/18) NEW BEST TODAY Yes, improved (68%) AZ BIO (+5 SNR) Test Condition List # Score Clinically significant change compared to previous visit? Clinically significant change compared to BEST? Clinically significant change compared to Evaluation (07/19/2014)? Left Ear 1 48% No (45% on 03/18/21) Yes, decreased (74% on 12/09/19) DNT Bimodal 3 62% Yes, improved (46% on 03/18/21) No (68% on 12/09/19) DNT Summary: Aided detection thresholds were obtained between 25-30 dB from 250-6000 Hz using the left CI only. Speech perception performance remains essentially stable. AzBio +5 SNR improved in the bimodal condition compared to last visit, back to best performance level. COCHLEAR IMPLANT PROGRAMMING/TROUBLESH OOTING: Dataloggin.4 hours of use per day LEFT Programming: Headset pressure, magnet strength, and incision site were checked with no problems noted. Electrode impedances, used to monitor internal device function, were measured across the electrode array. Impedances were WNL across all active electrodes. Review of impedances obtained today with comparison to previous 4 visits and 60-day postactivation baseline did not identify any remarkable changes or atypical measurements. Programming consisted of setting Comfort (C) levels at loud, but comfortable using a loudness scale. Several active electrodes were measured and the rest were interpolated. The function/use of the programs created were discussed and are listed below: Left Ear Program/Map # Program Feature 1 21 SCAN (ADRO + ASC), SNR-NR,WNR Active controls include: volume and Forward Focus. Battery Life: Rechargeable: 28 hours Disposable: 56 hours SUMMARY AND RECOMMENDATIONS: Counseling Points: * Discussed upgrade process as patient's current sound processor will turn five years old and go-out-of warranty on September 28, 2022. * Continue to monitor magnet/incision site for pain, redness, swelling, scabbing etc. Should any of these occur discontinue use of device immediately and contact the office. * Continue use of the right hearing aid and left sound processor during all waking hours. Follow-up Programming: It was recommended that the patient return annually for monitoring of auditory performance and potential programming needs. The center should be contacted if there are problems or concerns before that time. NOTE: It should b (more content not included)... Normal [facility] PAP ACOG PANEL 2: 30 to 65on 12-03-2021 . . Normal [facility] Comment on above: Result Comment: Perf ormed at: WB Performed By: #### [id number] #### [facility] [address] [place] [address] Dr. Jani Haywood Age Gdln ACOG Testing 30-65 Normal [facility] Comment on above: Performed By: #### [id number] #### [facility] [address] [place] [address] Dr. Jani Haywood DIAGNOSIS: Comment Normal [facility] Comment on above: Result Comment: NEGA TIVE FOR INTRAEPITHELIAL LESION OR MALIGNANCY. Performed at: [facility] Performed By: #### [id number] #### [facility] [address] [address] [address] Jani Haywood HPV Aptima Negative Normal Negative [facility] Comment on above: Result Comment: This nucleic acid amplification test detects fourteen high-risk HPV types (16,18,31,33,35,39,45,51,52,56,58,59,66,68) without differentiation. Performed at: =G Performed By: #### [id number] #### [facility] [address] [address] [address] Jani Haywood Methodology: Comment Normal [facility] Comment on above: Result Comment: This liquid based ThinPrep(R) pap test was screened with the use of an image guided system. Performed at: WB Performed By: #### [id number] #### [facility] [address] [place] [address] Dr. Jani Haywood Note: Comment Normal [facility] Comment on above: Result Comment: The Pap smear is a screening test designed to aid in the detection of premalignant and malignant conditions of the uterine cervix. It is not a diagnostic procedure and should not be used as the sole means of detecting cervical cancer. Both false-positive and false-negative reports do occur. . Performed at: WB Performed By: #### [id number] #### [facility] [address] [place] [address] Dr. Jani Haywood Performed by: Comment Normal [facility] Comment on above: Result Comment: Nikki Schwab, Mechanical Engineer (ASCP) Performed at: WB Performed By: #### [id number] #### [facility] [address] [place] [address] Dr. Jani Haywood Specimen adequacy: Comment Normal [facility] Comment on above: Result Comment: Sati sfactory for evaluation. Endocervical and/or squamous metaplastic cells (endocervical component) are present. Performed at: WB Performed By: #### [id number] #### [facility] [address] [place] [address] Dr. Jani Haywood Vital Signs Date Time Vital Sign Value Performing Clinician Facility 11-24-2021 14:10-040 Body height 160.02 cm Megan Oconnor Other [facility] Other 11-24-2021 14:10-0400 Body mass index (BMI) [Ratio] 20.55 kg/m2 Megan Oconnor Other [facility] Other 11-24-2021 14:10-0400 Body temperature 96.9 [degF] Megan Oconnor Other [facility] Other 11-24-2021 14:10-0400 Body weight 52.62 kg Megan Oconnor Other [facility] Other 11-24-2021 14:10-0400 SaO2% (BldA) [Mass fraction] 97 % Megan Oconnor Other [facility] Other Encounters Encounter Date Encounter Type Care Provider Facility Start: 06-18-2023 End: 06-18-2023 ambulatory HENRY AGUILA Not Available Start: 05-20-2023 End: 05-20-2023 ambulatory IVAN KARIMI Not Available Start: 10-10-2022 Telephone encounter [facility] [place] [facility] [place] Comment on above: 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 Start: 10-09-2022 ambulatory Yulissa WOOD Work Phone: Audiology Start: 09-24-2022 End: 09-24-2022 ambulatory RIMMA STERLING Facility:[facility] Start: 09-24-2022 End: 09-24-2022 Patient encounter procedure Rimma Sterling PA-C Work Phone: Otolaryngology Comment on above: Cochlear implant in place (Primary Dx); Sensorineural hearing loss, asymmetrical; Sensorineural hearing loss, bilateral Start: 07-29-2022 End: 07-30-[address] ARIEL SANTANA Facility:[facility] Start: 07-18-2022 End: 07-18-[address] ROSA CARTER Facility:[facility] Start: 07-17-2022 Encounter for preprocedural laboratory examination DR ROSA CARTER [facility] Start: 07-16-2022 End: 07-17-[address] ROSA CARTER Facility:[facility] Start: 07-16-2022 End: 07-17-2022 Encounter for preprocedural laboratory examination DR ROSA CARTER Facility:[facility] Start: 07-02-2022 End: 07-03-[address] ROSA CARTER Facility:[facility] Start: 06-18-2022 End: 06-19-[address] ROSA CARTER Facility:[facility] Start: 03-18-2022 End: 03-18-2022 ambulatory YULISSA JAIME Facility:[facility] Start: 11-27-2021 End: 11-27-[address] ROSA CARTER Facility:[facility] Start: 11-24-2021 End: 11-24-2021 ambulatory Megan Oconnor Other [facility] Other Start: 11-24-2021 Office outpatient vi sit 25 minutes Megan Oconnor [facility] Plan of Treatment Date Care Activity Detail Author Start: 11-17-2044 PNEUMOCOCCAL (3 - PP SV23 if available, else PCV20) PNEUMOCOCCAL (3 - PPSV23 if available, else PCV20) [facility] Start: 02-20-2023 Influenza vaccination INFLUENZA (Sea son Ended) [facility] Start: 06-22-2022 DEPRESSION ASSESSMENT DEPRESSION ASS ESSMENT [facility] Start: 10-20-2021 COVID-19 VACCINE (3 - Booster for Pfizer series) COVID-19 VACCINE (3 - Booster for Pfizer series) [facility] Start: 2019 Mammography MAMMOGRAM [facility] Start: 11-17-2009 HPV TESTING HPV TESTING [facility] Start: 11-17-2000 PAP TESTING PAP TESTING [facility] Start: 11-17-1998 Urine microalbumin profile DTAP,TDAP,TD (1 - Tdap) [facility] Start: 11-17-1997 HEPATITIS C SCREENING HEPATITIS C SC JOSE [facility] Start: 11-17-1997 HIV SCREENING HIV SCREENING [facility] Start: 1980 HEPATITIS B (1 of 3 - 3-dose series) HEPATITIS B (1 of 3 - 3-dose series) [facility] Immunizations Immunization Date Immunization Notes Care Provider Agustin bernabe 08-13-2017 pneumococcal polysaccharide vaccine, 23 valent Rimma Sterling PA-C Work Phone: [facility] 08-10-2014 pneumococcal conjuga te vaccine, 13 valent Rimma Sterling PA-C Work Phone: [facility] Payers Date Payer Category Payer Unknown MMO MMO [employer] PPO [id number] 2022-Present [phone] [address] [place] [address] PPO [id number] 2022 Unknown [id number] 1980 Unknown [id number] 93 1980 Unknown [id number] 93 1980 Unknown [id number] [id number] 93 1980 Unknown [id number] [id number] 93 1980 Unknown [id number] [id number] 93 1980 Unknown [id number] [id number] 93 1979 Unknown [id number] [id number] 93 1979 Unknown [id number] [id number] 259 1980 Unknown [id number] [id number] 259 1960 [facility] [id number] Unknown [id number] [id number] 93 Social History Date Type Detail Facility Sex Assigned At [facility] Other Start: 09-24-2022 Tobacco smoking status NHIS Never smoked tobacco [facility] Start: 09-24-2022 Tobacco use and exposure Smokeless tobacco non-user [facility] Start: 09-24-2022 Alcohol intake Current non-dr primary 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 of alcohol (finding) [facility] [facility] Start: 1980 Sex Assigned At Female [facility] Medical Equipment Procedure Code Equipment Code Equipment Original Text Equipment Identifier Dates Ain-Ql-H-Kind Implant - [id number] Start: 09-02-2017 Comment on above: Description: NUCLEUS SOUND PROCESSORS Clinical Notes 11-24-2021 to 10-10-2022 Telephone Encounter - Leo Huitrononnell - 10/10/2022 3:51 PM EDTISRAEL Champion - 10/09/2022 12:57 PM EDTPatient InstructionsRimma Sterling PA-C - 09/24/2022 9:38 AM EDT Note Date & Type Note Facility 10-10-2022 Miscellaneous Notes Housekeeping/Laundry: Katerina Mina Patient: Hasmukh Alfaro 1980 Clinic: [facility] Scientific Software Developer: Dr. Yulissa Jaime Appointment Length: 45 Minutes What are you looking to accomplish?: I d like to learn more about the Nucleus 8 and the process of upgrading Recipient's Stated Reason for Upgrading Clinic Request - Scientific Software Developer recommended it Useful Life - Processor more than 5 years old Change in Hearing Needs - Hearing performance improvement Quality of Life Technology Advancement New Technology Education Reviewed features and benefits of the Nucleus 8 sound processor Explained what is the same vs. what is different between current and new processor Reviewed Order Form Options Recipient will move forward with the N8 Upgrade once she receives the estimated out of pocket cost from insurance Recipient would like to take advantage of the complementary RTW (ready to wear) Processor will ship to Recipients Home Upgrade Process Discussed upgrade process and Cochlear services Explained what the process entails and what the next steps are Acquisition Methods Recipient will receive Kgi-fp-Txgyci cost estimate once order placed Next Steps If recipient decides to move forward with pursuing a Nucleus 8 upgrade and provides us with the necessary order information, we will start an order on their behalf. You will hear from Cochlear s Investigator Utility Bill Complaints team, via email/DocuSign to gain your approval or regarding an LMN to allow this patient to move forward in the process. Following completion of the upgrade process, I will invite the recipient to schedule time for a complimentary onboarding with our [employer] team so they can begin to maximize the use of their new Cochlear equipment. documented in this encounter [facility] 10-09-2022 Note HNO ID: [id number] Author: ISRAEL Champion Service: ? Author Type: Scientific Software Developer Type: Progress Notes Filed: 10/09/2022 12:58 PM Note Text: Email follow up from Cochlear: Dr. Jaime, I recently met virtually with one of your patients, Hasmukh Alfaro, who had contacted Cochlear? to discuss upgrading their current processor. During our meeting the recipient provided consent to share a recap with you. Here is an overview of the meeting for your records to ensure we are cross aligned in their care. Please feel free to reach out to me with any questions. Upgrade Consultation Clinic Patient Report Housekeeping/Laundry: Katerina Mina Patient: Hasmukh Alfaro 1980 Clinic: [facility] Scientific Software Developer: Dr. Yulissa Jaime Appointment Length: 45 Minutes What are you looking to accomplish?: I?d like to learn more about the Nucleus 8 and the process of upgrading Recipient's Stated Reason for Upgrading ? Clinic Request - Scientific Software Developer recommended it ? Useful Life - Processor more than 5 years old ? Change in Hearing Needs - Hearing performance improvement ? Quality of Life ? Technology Advancement New Technology Education ? Reviewed features and benefits of the Nucleus 8 sound processor ? Explained what is the same vs. what is different between current and new processor Reviewed Order Form Options ? Recipient will move forward with the N8 Upgrade once she receives the estimated out of pocket cost from insurance ? Recipient would like to take advantage of the complementary RTW (ready to wear) ? Processor will ship to Recipients Home Upgrade Process ? Discussed upgrade process and Cochlear services ? Explained what the process entails and what the next steps are Acquisition Methods ? Recipient will receive Rou-po-Yztwwl cost estimate once order placed Next Steps ? If recipient decides to move forward with pursuing a Nucleus 8 upgrade and provides us with the necessary order information, we will start an order on their behalf. You will hear from Cochlear?s Investigator Utility Bill Complaints team, via email/DocuSign to gain your approval or regarding an LMN to allow this patient to move forward in the process. Following completion of the upgrade process, I will invite the recipient to schedule time for a complimentary onboarding with our [employer] team so they can begin to maximize the use of their new Cochlear equipment. Warm Regards, Eloisa Vazquez, GIOVANNY/A Clinical Scientific Software Developer [facility] 10-09-2022 History of Presen t illness Narrative Email follow up from Cochlear: Dr. Jaime, I recently met virtually with one of your patients, Hasmukh Alfaro, who had contacted Cochlear to discuss upgrading their current processor. During our meeting the recipient provided consent to share a recap with you. Here is an overview of the meeting for your records to ensure we are cross aligned in their care. Please feel free to reach out to me with any questions. Upgrade Consultation Clinic Patient Report Housekeeping/Laundry: Katerina Lepooldo Patient: Hasmukh Alfaro 1980 Clinic: [facility] Scientific Software Developer: Dr. Yulissa Jaime Appointment Length: 45 Minutes What are you looking to accomplish?: I d like to learn more about the Nucleus 8 and the process of upgrading Recipient's Stated Reason for Upgrading Clinic Request - Scientific Software Developer recommended it Useful Life - Processor more than 5 years old Change in Hearing Needs - Hearing performance improvement Quality of Life Technology Advancement New Technology Education Reviewed features and benefits of the Nucleus 8 sound processor Explained what is the same vs. what is different between current and new processor Reviewed Order Form Options Recipient will move forward with the N8 Upgrade once she receives the estimated out of pocket cost from insurance Recipient would like to take advantage of the complementary RTW (ready to wear) Processor will ship to Recipients Home Upgrade Process Discussed upgrade process and Cochlear services Explained what the process entails and what the next steps are Acquisition Methods Recipient will receive Mem-fz-Gvxach cost estimate once order placed Next Steps If recipient decides to move forward with pursuing a Nucleus 8 upgrade and provides us with the necessary order information, we will start an order on their behalf. You will hear from Cochlear s Investigator Utility Bill Complaints team, via email/DocuSign to gain your approval or regarding an LMN to allow this patient to move forward in the process. Following completion of the upgrade process, I will invite the recipient to schedule time for a complimentary onboarding with our [employer] team so they can begin to maximize the use of their new Cochlear equipment. Warm Regards, Eloisa Vazquez, GIOVANNY/A Clinical Scientific Software Developer documented in this encounter [facility] 09-24-2022 Note HNO ID: [id number] Author: Rimma Sterling PA-C Service: ? Author Type: Physician City Bailiff Type: Progress Notes Filed: 09/24/2022 9:53 AM Note Text: History of Present Illness Ms. AMY ALFARO is a 41 year old year old female presenting for: referred by SELF And is a patient of DO Abel Card DO [address] [place], [place] [id number] Communication will be via the electronic record and letter. Returns for follow-up of Left cochlear implant placed 09/02/[address] Yeung. Reports that the cochlear implant has been very beneficial for her hearing. Has had to replace the coil because it stopped functioning. Otalgia: no pain at magnet site since switching magnet strength one year ago Otorrhea: denies Ear Pressure/Fullness: denies Hearing Loss: reports hearing stable in Right, got a new hearing aid last year Tinnitus: complains of intermittent bilateral tinnitus Dizziness/Imbalance: denies Facial Numbness, Weakness or Tingling: denies Medical History: ACTIVE PROBLEM LIST Vertigo of Central Origin Peripheral Vertigo, Unspecified Sensorineural Hearing Loss, Bilateral Left-Sided Sensorineural Hearing Loss Sensorineural Hearing Loss, Asymmetrical Cochlear Implant Follow-Up Surgical History: PAST SURGICAL HISTORY Procedure Laterality Date DENTAL SURGERY PROCEDURE wisdom teeth extraction PAST SURGICAL HISTORY OF none Allergies: ALLERGIES Allergen Reactions Seasonal Allergies Cough Medications: Current Outpatient Medications on File Prior to Visit Medication Sig predniSONE (DELTASONE) 10 mg tablet Take by mouth four (4) tabs x3 days; then three (3) tabs x3days; then two (2) tabs x3 days; then one (1) tab a day x3 days DOCUSATE SODIUM (COLACE ORAL) Take 1 tablet by mouth as needed. fluticasone (FLONASE) 50 mcg/actuation nasal spray Use 1 Clinton in each nostril as needed. multivitamin (DAILY MULTIPLE) tablet Take 1 tablet by mouth once daily. Cetirizine (ZYRTEC) 10 mg cap Take 1 capsule by mouth as needed. No current facility-administered medications on file prior to visit. Social History: FAMILY HISTORY Problem Relation Age of Onset Allergies Mother seasonal Osteoporosis Mother low bone density Allergies Father seasonal Diabetes Father Allergies Sister seasonal Allergies Brother seasonal Asthma Maternal Grandmother Breast Cancer Paternal Grandmother Diabetes Maternal Grandfather Heart Maternal Grandfather Diabetes Maternal Aunt Diabetes Maternal Uncle Diabetes Paternal Aunt Diabetes Paternal Uncle No Ocular Disease No Family History Social History Tobacco Use Smoking status: Never Smokeless tobacco: Never Substance Use Topics Alcohol use: No Drug use: No Review of Systems: Positive: As above Negative: Fever, shortness of breath Objective: Last menstrual period 07/25/2017. Appearance: Well appearing, alert, in no acute distress, well-hydrated, well nourished. Communication: Able to speak and communicates clearly Head/Face: normocephalic, no masses, lesions, tenderness or abnormalities Facial nerve: Normal 1/6 bilaterally Skin: no skin lesions or scarring on face Ophthalmic: Full ocular motility intact; pupils symmetric Ears: AD EAC clear. TM intact without perforation or retraction. Middle ear aerated. EAC clear. TM intact without perforation or retraction. Middle ear aerated. Post-auricular incision well healed. Magnet site without any erythema or inflammation. Nose: external exam with straight profile Oropharynx: Uvula hangs midline; mucosa is pink and moist; tonsils present Neck: No cervical or supraclavicular lymphadenopathy Neuro/Psych.: Alert and oriented - no nystagmus Cranial nervesIII, IV, : EOM normal VII: Normal strength in all divisions IX, X: Normal voice, platal elevation and sensation XII: Tongue mobility normal Gait: normal for age Assessment: Z96.[address] (primary encounter diagnosis) H90.3 Sensorineural hearing loss, asymmetrical H90.3 Sensorineural hearing loss, bilateral Plan: Established with practice of Dr. Audra Umanzor for management of cochlear implant Medically cleared for any replacement or upgrade cochlear implant parts Follow-up in 2-3 years to stay established with practice Rimma Sterling PA-C Otology Medical Decision Making: Problems: Low: Stable chronic illness Risk: Minimal: Minimal risk from testing/treatment Medical Decision Making Level: 2 - Straightforward [facility] 09-24-2022 Instructions Rimma Sterling PA-C - 09/24/2022 9:[address] Audra Umanzor use his name on paperwork documented in this encounter [facility] 09-24-2022 History of Presen t illness Narrative History of Present Illness Ms. AMY ALFARO is a 41 year old year old female presenting for: referred by SELF And is a patient of DO Abel Card DO [address] [place], [place] [id number] Communication will be via the electronic record and letter. Returns for follow-up of Left cochlear implant placed 09/02/[address] Yeung. Reports that the cochlear implant has been very beneficial for her hearing. Has had to replace the coil because it stopped functioning. Otalgia: no pain at magnet site since switching magnet strength one year ago Otorrhea: denies Ear Pressure/Fullness: denies Hearing Loss: reports hearing stable in Right, got a new hearing aid last year Tinnitus: complains of intermittent bilateral tinnitus Dizziness/Imbalance: denies Facial Numbness, Weakness or Tingling: denies Medical History: ACTIVE PROBLEM LIST Vertigo of Central Origin Peripheral Vertigo, Unspecified Sensorineural Hearing Loss, Bilateral Left-Sided Sensorineural Hearing Loss Sensorineural Hearing Loss, Asymmetrical Cochlear Implant Follow-Up Surgical History: PAST SURGICAL HISTORY Procedure Laterality Date DENTAL SURGERY PROCEDURE wisdom teeth extraction PAST SURGICAL HISTORY OF none Allergies: ALLERGIES Allergen Reactions Seasonal Allergies Cough Medications: Current Outpatient Medications on File Prior to Visit Medication Sig predniSONE (DELTASONE) 10 mg tablet Take by mouth four (4) tabs x3 days; then three (3) tabs x3days; then two (2) tabs x3 days; then one (1) tab a day x3 days DOCUSATE SODIUM (COLACE ORAL) Take 1 tablet by mouth as needed. fluticasone (FLONASE) 50 mcg/actuation nasal spray Use 1 Clinton in each nostril as needed. multivitamin (DAILY MULTIPLE) tablet Take 1 tablet by mouth once daily. Cetirizine (ZYRTEC) 10 mg cap Take 1 capsule by mouth as needed. No current facility-administered medications on file prior to visit. Social History: FAMILY HISTORY Problem Relation Age of Onset Allergies Mother seasonal Osteoporosis Mother low bone density Allergies Father seasonal Diabetes Father Allergies Sister seasonal Allergies Brother seasonal Asthma Maternal Grandmother Breast Cancer Paternal Grandmother Diabetes Maternal Grandfather Heart Maternal Grandfather Diabetes Maternal Aunt Diabetes Maternal Uncle Diabetes Paternal Aunt Diabetes Paternal Uncle No Ocular Disease No Family History Social History Tobacco Use Smoking status: Never Smokeless tobacco: Never Substance Use Topics Alcohol use: No Drug use: No Review of Systems: Positive: As above Negative: Fever, shortness of breath Objective: Last menstrual period 07/25/2017. Appearance: Well appearing, alert, in no acute distress, well-hydrated, well nourished. Communication: Able to speak and communicates clearly Head/Face: normocephalic, no masses, lesions, tenderness or abnormalities Facial nerve: Normal 1/6 bilaterally Skin: no skin lesions or scarring on face Ophthalmic: Full ocular motility intact; pupils symmetric Ears: AD EAC clear. TM intact without perforation or retraction. Middle ear aerated. EAC clear. TM intact without perforation or retraction. Middle ear aerated. Post-auricular incision well healed. Magnet site without any erythema or inflammation. Nose: external exam with straight profile Oropharynx: Uvula hangs midline; mucosa is pink and moist; tonsils present Neck: No cervical or supraclavicular lymphadenopathy Neuro/Psych.: Alert and oriented - no nystagmus Cranial nervesIII, IV, : EOM normal VII: Normal strength in all divisions IX, X: Normal voice, platal elevation and sensation XII: Tongue mobility normal Gait: normal for age Assessment: Z96.[address] (primary encounter diagnosis) H90.3 Sensorineural hearing loss, asymmetrical H90.3 Sensorineural hearing loss, bilateral Plan: Established with practice of Dr. Audra Umanzor for management of cochlear implant Medically cleared for any replacement or upgrade cochlear implant parts Follow-up in 2-3 years to stay established with practice Rimma Sterling PA-C Otology Medical Decision Making: Problems: Low: Stable chronic illness Risk: Minimal: Minimal risk from testing/treatment Medical Decision Making Level: 2 - Straightforward documented in this encounter [facility] 07-18-2022 Note EXAMINATION: US PELV IS HISTORY: Surgical procedure COMPARISON: Ultrasound less than 14 weeks 07/16/2022 TECHNIQUE: Transabdominal and transvaginal sonographic examination. FINDINGS: Final images show an empty endometrial cavity. IMPRESSION: 1. No appreciable products of conception within endometrial cavity following dilation and curettage. Electronically authenticated by: ALEXI BRANCH Date: 2022-07-18 08:21 [facility] 03-18-2022 Note HNO ID: [id number] Author: ISRAEL Champion Service: ? Author Type: Scientific Software Developer Type: Progress Notes Filed: 03/18/2022 12:14 PM Note Text: [facility] [place] [facility] COCHLEAR IMPLANT ADULT PROGRAMMING Name: Amy ALFARO CC#: [id number] Date of Service: March 18, 2022 Date of : 1980 Age: [age] year old COCHLEAR IMPLANT INFORMATION (see below for all device details) Updated: March 18, 2022 Right ear: Phonak Audeo RITE Hearing Aid that was fit at an outside facility (November 2021) and is being managed by that facility. Left ear: External Processor: Cochlear [employer] [id number] (Nucleus 7) Processor SN: [id number] Magnet strength: 2 Internal Device: Cochlear CI532 Profile with Slim Modiolar Electrode Array Internal Device SN: [id number] Inactive electrodes: None Surgery Date: 09/02/2017 Initial activation date: 09/29/217 Surgeon: Reyna Yeung M.D. Accessories: Remote Control (CR310) Mini Microphone 2+ Phone Clip HISTORY: Ms. Alfaro was seen for annual evaluation of the device. The patient reported: - Increased difficulty hearing/understanding in the past month - Fit with new Phonak Audeo RITE hearing aid at an outside facility in November 2021 - Pleased with current magnet strength; no retention issues or pain noted - Occasionally streams audio to cochlear implant - Occasional volume adjustments as needed - Replaced microphone protector yesterday AIDED AUDIOMETRIC TESTING: Audiologic testing was completed in the sound field with the speech processor at user settings (Program: 1; Volume: 6; Sensitivity: 12) before programming. See the SmartForm Audiogram for obtained thresholds. Speech perception testing was completed at 60 shop mechanic using recorded stimuli in the sound field at 0 degrees azimuth. NOTE: The contralateral ear was plugged and muffed during testing. The following testing and results were obtained: Ughdzmwii-Eifltly-Vfehfsngj Words (CNC) Test Condition List # Phonemes Words Clinically significant change compared to previous visit? Clinically significant change compared to BEST? Clinically significant change compared to Evaluation (07/19/2014)? Left Ear 6 95% 88% No (84% on 03/18/27) No (92% on 09/29/18) Yes, improved (0%) Bimodal 1 100% 100% No (92% on 03/18/21) No (92% on 09/29/18) NEW BEST TODAY Yes, improved (68%) AZ BIO (+5 SNR) Test Condition List # Score Clinically significant change compared to previous visit? Clinically significant change compared to BEST? Clinically significant change compared to Evaluation (07/19/2014)? Left Ear 1 48% No (45% on 03/18/21) Yes, decreased (74% on 12/09/19) DNT Bimodal 3 62% Yes, improved (46% on 03/18/21) No (68% on 12/09/19) DNT Summary: Aided detection thresholds were obtained between 25-30 dB from 250-6000 Hz using the left CI only. Speech perception performance remains essentially stable. AzBio +5 SNR improved in the bimodal condition compared to last visit, back to best performance level. COCHLEAR IMPLANT PROGRAMMING/TROUBLESHOOTING: Dataloggin.4 hours of use per day LEFT Programming: Headset pressure, magnet strength, and incision site were checked with no problems noted. Electrode impedances, used to monitor internal device function, were measured across the electrode array. Impedances were WNL across all active electrodes. Review of impedances obtained today with comparison to previous 4 visits and 60-day postactivation baseline did not identify any remarkable changes or atypical measurements. Programming consisted of setting Comfort (C) levels at loud, but comfortable using a loudness scale. Several active electrodes were measured and the rest were interpolated. The function/use of the programs created were discussed and are listed below: Left Ear Program/Map # Program Feature 1 21 SCAN (ADRO + ASC), SNR-NR,WNR Active controls include: volume and Forward Focus. Battery Life: Rechargeable: 28 hours Disposable: 56 hours SUMMARY AND RECOMMENDATIONS: Counseling Points: * Discussed upgrade process as patient's current sound processor will turn five years old and go-out-of warranty on September 28, 2022. * Continue to monitor magnet/incision site for pain, redness, swelling, scabbing etc. Should any of these occur discontinue use of device immediately and contact the office. * Continue use of the right hearing aid and left sound processor during all waking hours. Follow-up Programming: It was recommended that the patient return annually for monitoring of auditory performance and potential programming needs. The center should be contacted if there are problems or concerns before that time. NOTE: It should be noted that the patient left the appointment with all the equipment. None of the patient's equipment was left in the Audiology Section of the Clinic. TOTAL TIME: 70 minut (more content not included)... [facility] 11-24-2021 Evaluation note Encounter Date Diagnosis Assessment Notes Nov, Bronchitis (ICD-10 - J40) Take medications as directed. Rest and increase fluid intake. Take meds with food to prevent stomach upset. Use inhaler as needed for coughing spells and SOB. It is better to use inhaler a few times a day over the next 2-3 days. Follow up with primary care provider if symptoms do not improve with treatment plan, although it may take a few weeks for the cough to go away MUCINEX DM and ZYRTEC Nov, Fungal rash of trunk (ICD-10 - B36.9) [employer] Other Evaluation note* Diagnosis Cochlear implant in place- Primary Other postprocedural status Sensorineural hearing loss, asymmetrical Sensorineural hearing loss, bilateral [facility] N[facility]ative - Reported* Type Description Date Medical History bilateral hearing loss Surgical History cochlear implant Surgical History [facility] [employer] Other Summary Purpose Family History No Family History Records FoundNo Family History Records FoundNo Family History Records Found Advance Directives No Advanced Directives Records FoundNo Advanced Directives Records FoundNo Advanced Directives Records Found Additional Source Comments REASON FOR VISIT (unrecogniz ed section and content) Reason Comments Hearing Loss New. Self referral. CI LT side. Last audio 03/18/22. Denies otalgia and otorrhea. 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 DATE CREATED AUTHOR AUTHOR'S ORGANIZ ATION 10/11/2022 [facility] DATE CREATED AUTHOR AUTHOR'S ORGANIZ ATION 06/20/[address] [facility] EPIC Source Comments (unrecognize d section and content) In the event this informatio n is protected by the Federal Confidentiality of Alcohol and Drug Abuse Patient Records regulations: The Federal rules restrict any use of the information to criminally investigate or prosecute any alcohol or drug abuse patient.[facility] the event this information is protected by the Federal Confidentiality of Alcohol and Drug Abuse Patient Records regulations: The Federal rules restrict any use of the information to criminally investigate or prosecute any alcohol or drug abuse patient.[facility] the event this information is protected by the Federal Confidentiality of Alcohol and Drug Abuse Patient Records regulations: The Federal rules restrict any use of the information to criminally investigate or prosecute any alcohol or drug abuse patient.[facility] Care Teams (unrecognized sec tion and content) Impress Associate Relationship Specialty Start Date End Date Abel Sun PCP - General Family Medicine 03/15/14 Impress Associate Relationship Specialty Start Date End Date Abel Sun Javon PCP - General [facility] Medicine 03/15/14 Impress Associate Relationship Specialty Start Date End Date Abel Sun Javon PCP - General Family Medicine 03/15/14 FOR RECORDS PERTAINING TO PATIENTS WHO ARE OR HAVE BEEN ENROLLED IN A CHEMICAL DEPENDENCY/SUBSTANCEABUSE PROGRAM, SOME INFORMATION MAY BE OMITTED. This clinical summary was aggregated from multiple sources. Caution should be exercised in using it in the provision of clinical care. This summary normalizes information from multiple sources, and as a consequence, information in this document may materially change the coding, format and clinical context of patient data. In addition, data may be omitted in some cases. CLINICAL DECISIONS SHOULD BE BASED ON THE PRIMARY CLINICAL RECORDS. [facility] [employer] [facility]. provides no warranty or guarantee of the accuracy or completeness of information in this document.
== END 2023-06-24 09:08 | disposition home or self-care (01) ==
LOC: US 09:08
PROVIDERS: PCP Family Medicine; Visit Provider Physician Assistant
DX: O26.843 Uterine size-date discrepancy, third trimester (principal); Z3A.27 27 weeks gestation of pregnancy
CPT/HCPCS: 76816

== ENCOUNTER 2023-07-23 14:57 | Outpatient (OUT) | payer OTHER, SELFPAY ==
--- NOTE | 2023-07-23 14:59 | US_ITS ---
[address] [address] Patient Name: HILLARY ALFARO MRN: [id number] date: 1980 Sex: F Assigned Patient Location: [facility] Current Patient Location: [facility] Accession/Order Number: [id number] Exam Date: 07/23/2023 15:00 Report Date: 07/23/2023 15:58 At the request of: IVAN KARIMI Procedure: US OB growth EXAMINATION: US OB growth HISTORY: SGA COMPARISON: Ultrasound OB growth 06/24/2023 FINDINGS: Heart Rate: 158.0 bpm Number: 1.0 Position: BREECH Amniotic Fluid Volume: 11.0 cm Maximum Vertical Pocket: 3.8 cm BIOMETRY: BPD: 7.8 cm cm; 31 weeks 2 days HC: 29.4 cmcm; 32 weeks 3 days AC: 27.9 cm cm; 32 weeks 0 days FL: 6.3 cm cm; 32 weeks 3 days EFW: 1903.5 grams; 42% FL/AC: 22.5 FL/BPD: 80.6 HC/AC: 1.1 GESTATIONAL AGE: Age by EDC: 32 weeks 0 days JALIL by EDC: 09/09/2023 Age by US: 32 weeks 0 days JALIL by US: 09/17/2023 US/US OB growth IMPRESSION: 1. Single live intrauterine with growth detailed above. Electronically authenticated by: ALEXI BRANCH Date: 07/23/2023 15:58
== END 2023-07-23 14:58 | disposition home or self-care (01) ==
LOC: NOMS 14:57
PROVIDERS: PCP Family Medicine; Visit Provider Obstetrics & Gynecology
DX: O26.843 Uterine size-date discrepancy, third trimester (principal); Z3A.32 32 weeks gestation of pregnancy
CPT/HCPCS: 76816

== ENCOUNTER 2023-08-04 07:50 | Outpatient (OUT) | payer OTHER, SELFPAY ==
--- OUTSIDE RECORDS SUMMARY | 2023-08-04 07:55 | XMS_ITS | CCD ---
Author Name Unknown Address [address] [place] [address] Organization [facility] Care Team Providers Care Title One Teacher Name Role Phone Megan Oconnor Unavailable ANDRES, [...] Johnson Consulting Unavailable KARAMLOU, THOMAS Consulting Unavailable SHARP, ZACHARIAH Consulting Unavailable JELLY II, REYNA Consulting Unavailable KARASIK, DR LEE Admitting Unavailable KARASIK, DR LEE Attending Unavailable REQUEST, NONE LISTED Primary Care Unavaila ble KARASIK, DR HALLORY Consulting Unavailable Abel Sun Primary Care Provider YULISSA JAIME Attending Unavailable ABEL SUN Primary Care Unavailab RIMMA Sutherland Attending Unavailable ABEL SUN Primary Care Unavailab Ariel Rich MD Primary Care Provider [phone] TERESE AGUILA Attending Unavailable IVAN ABAD Attending Unavailable TERESE AGUILA Attending Unavailable TERESE AGUILA Attending Unavailable IVAN ABAD Attending Unavailable IVAN ABAD Attending Unavailable Allergies Allergy Classification Reported Allergen(s) Allergy Type Date of Onset Reaction(s) Facility (4 sources) Seasonal allergy; Translations: [SEASONAL ALLERGIES] Allergy to substance 4 Cough [facility] (4 sources) Octacosanol Drug Allergy 4 Cough [facility] (4 sources) Other Propensity to adverse reactions 3 Unknown [facility] Medications Current Medications Medication Drug Class(es) Dates Sig (Normalized) Sig (Original) [id number] 200 actuat albuterol 0.09 mg/actuat metered dose inhaler (1 source) beta2-Adrenergic Agonist Start: 11-24-2021 take 2 puff(s) by inhalation every four hours as needed Albuterol Sulfate HFA 108 (90 Base) MCG/ACT 2 puffs as needed Inhalation every 4 hrs Nov, Active aspirin 81 mg delayed release oral tablet (4 sources) Platelet Aggregation Inhibitor, Nonsteroidal Anti-inflammatory Drug End: 08-03-2023 take 1 tablet by mouth in the morning aspirin 81 MG EC tablet Take 81 mg by mouth in the morning. 0 08/03/2023 Discontinued Clotrimazole (1 source) Azole Antifungal Start: 11-24-2021 Clotrimazole 1 % 1 application to affected area Externally Twice a day for 28 day(s) Nov, Active docusate sodium 100 mg oral capsule (7 sources) take 1 capsule by mouth in the morning docusate sodium (Colace) 100 MG capsule Take 100 mg by mouth in the morning. 0 Active DOCUSATE SODIUM (COLACE ORAL) Take 1 tablet by mouth as needed. 0 Active Comment on above: Take 1 tablet by yesika as needed. famotidine 20 mg oral tablet (4 sources) Histamine-2 Receptor Antagonist famotidine (Pepcid) 20 MG tablet Take 20 mg by mouth as needed at bedtime for heartburn 0 Active methylPREDNISolone 4 mg oral tablet (1 source) Corticosteroid Start: 2021 methylPREDNISolone 4 MG as directed Orally Once a day for 6 days Nov, Active 27-1 MG tablet (4 sources) Start: 2022 End: 2023 take 1 tablet by mouth once daily 27-1 MG tablet Indications: Second trimester Take 1 tablet by mouth 1 (one) time each day at the same time 90 tablet 3 06/18/2023 06/17/2024 Active Completed/Discontinued Medications Medication Drug Class(es) Dates Sig (Normalized) Sig (Original) cetirizine hydrochloride 10 mg oral capsule (3 sources) Histamine-1 Receptor Antagonist Cetirizine (ZYRTEC) 10 mg cap Take 1 capsule by mouth as needed. 0 Active Comment on above: Take 1 capsule by mo [facility] as needed. fluticasone propionate 0.05 mg/actuat metered dose nasal spray (3 sources) Corticosteroid fluticasone (FLONASE) 50 mcg/actuation nasal spray Indications: Bilateral sensorineural hearing loss , Autoimmune disorder of inner ear Use 1 [place] in each nostril as needed. 0 Active Comment on above: Use 1 [place] in each nostril as needed. LOW-DOSE ASPIRIN PO (2 sources) Start: 04-02-2023 End: 07-23-2023 LOW-DOSE ASPIRIN PO multivitamin (DAILY MULTIPLE) tablet (3 sources) take 1 tablet by mouth once daily multivitamin (DAILY MULTIPLE) tablet Take 1 tablet by mouth once daily. 0 Active Comment on above: Take 1 tablet by [facility] once daily. predniSONE 10 mg oral tablet [...] Problem Classification Problem Date Documented Date Episodic/Chronic Conditions associated with dizziness or vertigo (10 sources) Vertigo of central origin; Translations: [Vertigo of central origin] Onset: 05-24-2014 05-24-2014 Episodic Deficiency and other anemia (4 sources) Iron deficiency anemia, unspecified; Translations: [IRON DEFICIENCY ANEMIA UNSPECIFIED] Onset: 07-29-2022 Episodic Deficiency and other anemia (1 source) Anemia, unspecified; Translations: [ANEMIA UNSPECIFIED] Onset: 07-30-2022 Episodic Other circulatory disease (2 sources) Low blood pressure reading; Translations: [Nonspecific low blood-pressure reading] 07-22-2023 Episodic Other complications of (5 sources) Missed [...] 08-13-2017 Chronic Other and delivery including normal (13 sources) Encounter for supervision of other normal , first trimester; Translations: [Encounter for supervision of normal , unspecified, unspecified trimester] Onset: 06-20-2022 Episodic Short gestation; low weight; and growth retardation (2 sources) Uojrn-ilm-ydego baby; Translations: [[place] small for gestational age, unspecified weight] 07-30-2023 Episodic Spontaneous (1 source) Complete or unspecified spontaneous without complication; Translations: [COMPLETE/UNS SPONT AB W/O COMP] Onset: 07-17-2022 Episodic Unclassified (1 source) CONTACT W/AND (SUSP) EXPOS COVID-19; Translations: [CONTACT W/AND (SUSP) EXPOS COVID-19] Onset: 07-17-2022 Unclassified (4 sources) OB Reminders Onset: 04-22-2023 04-22-2023 Past or Other Problems Problem Classification Problem Date Documented Date Episodic/Chronic Chronic obstructive pulmonary disease and bronchiectasis (1 source) Bronchitis, not specified as acute or chronic Onset: 11-24-2021 Resolved: 11-24-2021 Episodic Immunizations and screening for infectious disease [...] Test Name Value Interpretation Reference Range Facility Urinalysis macro (dipstick) panel (U)on 07-30-2023 Bilirubin, UA Negative Negative - 4(70) +++ mg/dL [facility] Blood, UA Positive Negative - 50 Bobby/mcL [facility] Comment on above: trace-intact Clarity, UA Clear [facility] re Color, UA Yellow [facility] Glucose, UA Negative Negative - 1999(110) ++++ mg/dL [facility] Interpretation and review of laboratory results Abnormal [facility] Ketones, UA Negative Negative - 160(16) ++++ mg/dL [facility] Leukocytes, UA Positive Negative - 500+++ Suzette/mcL [facility] Comment on above: small Nitrite, UA Negative Negative - Positive [facility] pH, UA 6.0 5 - [facility], [facility] Negative Negative - 1999(20) ++++ mg/dL [facility] Spec Grav, UA 1.010 1 - 1.03 [facility] Urobilinogen, UA 0.2 0.2 - 12 mg/dL [facility] Urinalysis macro (dipstick) panel (U)on 07-23-2023 Bilirubin, UA Negative Negative - 4(70) +++ mg/dL [facility] Blood, UA Negative Negative - 50 Bobby/mcL [facility] Clarity, UA Clear [facility] re Color, UA Yellow [facility] Glucose, UA Negative Negative - 1999(110) ++++ mg/dL [facility] Interpretation and review of laboratory results Abnormal [facility] Ketones, UA Negative Negative - 160(16) ++++ mg/dL [facility] Leukocytes, UA Positive Negative - 500+++ Suzette/mcL [facility] Comment on above: small Nitrite, UA Negative Negative - Positive [facility] pH, UA 7.0 5 - 9 [facility] Protein, UA Negative Negative - 1999(20) ++++ mg/dL [facility] Spec Grav, UA 1.015 1 - 1.03 [facility] Urobilinogen, UA 0.2 0.2 - 12 mg/dL [facility] CNOVon 07-21-2023 CNOV Office Visit (OTAUCR ) AMY ALFARO ([id number]) 1980 F Date Time Provider Department 07/21/23 7:30 AM YULISSA JAIME During your visit today, we recorded the following information about you: Yulissa Jaime AUD 07/21/2023 8:47 AM Signed [place] [facility] COCHLEAR IMPLANT ADULT PROGRAMMING Name: Amy ALFARO [facility]#: [id number] Date of Service: July 21, 2023 Date of : 1980 Age: [age] year old COCHLEAR IMPLANT INFORMATION (see below for all device details) Updated: July 21, 2023 Right ear: Phonak Audeo [employer] Hearing Aid that was fit at an outside facility (November 2021) and is being managed by that facility. Left ear: External Processor: [employer] [id number] (Nucleus 8; upgraded around January 2023) Processor SN: [id number] Processor ([id number]) SN: [id number] Magnet strength: 2 Internal Device: Cochlear [id number] Profile with Slim Modiolar Electrode Array Internal Device SN: [id number] Inactive electrodes: None Surgery Date: 09/02/2017 Initial activation date: 09/29/217 Surgeon: Reyna Yeung M.D. Accessories: Remote Control (CR310) Mini Microphone 2+ Phone Clip HISTORY: Ms. ALFARO was seen for annual evaluation of the device. The patient reported: - Received upgraded sound processor (Nucleus 8) around January 2023 - Initially noted concerns with the device not consistently powering on (often in the evening after showering; however, removing and replacing battery would resolve the issue). This happened again once last week. - Rarely remembers to use Forward Focus - Volume is good - Denied pain/discomfort at magnet site - No retention concerns - Relies heavily on her cochlear implant, but prefers sound quality in the bimodal condition - Patient is currently expected her second son in August 2023 UNAIDED AUDIOMETRIC TESTIN09/28/2017: AIDED AUDIOMETRIC TESTING: Audiologic testing was completed in the sound field with the speech processor at user settings (Program: 1; Volume: 6; Sensitivity: 12) before programming. See the SmartForm Audiogram for obtained thresholds. Speech perception testing was completed at 60 bow tacker using recorded stimuli in the sound field at 0 degrees azimuth. NOTE: The contralateral ear was not plugged and muffed during testing. The following testing and results were obtained: Xzwqeedjc-Qdngyzu-Jre sonant Words (CNC) Test Condition List # Phonemes Words Clinically significant change compared to previous visit? Clinically significant change compared to BEST? Clinically significant change compared to Evaluation (07/19/2014)? Left Ear 3 89% 76% No (88% on 03/18/22) No (92% on 09/29/18) Yes, improved (0%) Bimodal 7 93% 80% Yes, decreased (100% on 03/18/22) Yes, decreased (100% on 03/18/22) No (68%) AZ BIO (+5 SNR) Test Condition List # Score Clinically significant change compared to previous visit? Clinically significant change compared to BEST? Clinically significant change compared to Evaluation (07/19/2014)? Left Ear 7 61% No (48% on 03/18/22) No (74% on 12/09/19) DNT Bimodal 8 57% No (62% on 03/18/22) No (68% on 12/09/19) DNT Summary: Aided detection levels were obtained between 20-30 dB HL from 250-6000 Hz using the LEFT CI only. Speech perception performance is essentially stable, although significantly decreased performance was noted for CNC Words in the bimodal condition. COCHLEAR IMPLANT PROGRAMMING/TROUBLESH OOTING: Dataloggin.6 hours of use per day LEFT Programming: [...] were measured and the rest were interpolated. No changes made today. The function/use of the programs created were discussed and are listed below: Left Ear Program/Map # Program Feature 1 22 SCAN (ADRO + ASC), SNR-NR,WNR 2 22 SCAN 2 FF (ADRO + ASC), SNR-NR,WNR Active controls include: Forward Focus, Volume, and Telecoil. Battery Life: Rechargeable: 27 hours Disposable: 45 hours SUMMARY AND RECOMMENDATIONS: Counseling Points: * Continue to monitor equipment function and contact [facility] if replacement equipment is needed. Consider trying new cable coil to see if this helps with intermittent powering on issues if needed. * Continue to monitor magnet/incision site for pain, redness, swelling, scabbing etc. Shoul (more content not included)... Normal [facility] ALFAROAMY MAYNARD ([id number]) 1980 F Date Time Provider Department 10/10/22 CHINALEO MARIIA During your visit today, we recorded the following information about you: Leo China 10/10/2022 3:52 PM Signed Life Scientists: Katerina Mina Patient: Hasmukh Alfaro 1980 Clinic: [facility] Roto Mixer Operator: Dr. Yulissa Jaime Appointment Length: 45 Minutes What are you looking to accomplish?: I?d like to learn more about the Nucleus 8 and the process of upgrading Recipient's Stated Reason for Upgrading ? Clinic Request - Roto Mixer Operator recommended it ? Useful Life - Processor [...] are Acquisition Methods ? Recipient will receive Syj-nv-Gydbkt cost estimate once order placed Next Steps ? If recipient decides to move forward with pursuing a Nucleus 8 upgrade and provides us with the necessary order information, we will start an order on their behalf. 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 - fluticasone (FLONASE) 50 mcg/actuation nasal spray Use 1 [place] in each nostril as needed. - multivitamin [...] Encounter Status:Closed by LEO ATKINSON on 10/10/22 [facility] CNOVon 09-24-2022 CNOV Office Visit (OTOLCR ) AMY ALFARO ([id number]) 1980 F Date Time Provider Department 09/24/22 9:30 AM RIMMA STERLING OTOLCR During your visit today, we recorded the following information about you: Rimma Sterling PA-C 09/24/2022 9:53 AM Signed History of Present Illness Ms. AMY ALFARO is a 41 year old year old female presenting for: referred by SELF And is a patient of DO Abel Card DO [address] [id number] Communication will be via the electronic record [...] (FLONASE) 50 mcg/actuation nasal spray Use 1 [place] in each nostril as needed. multivitamin (DAILY [...] ALLERGIES 1 (more content not included)... Normal [facility] CBC AUTO DIFFon 07-29-2022 BASO # 0.0 103/ul Normal 0.0-0.1 [facility] Comment on above: Performed By: #### C BC #### [facility] [address] [place] [address] Dr. Jani Haywood Basophils/100 WBC (Bld) 0.6 % Normal 0.2-2.0 [facility] Comment on above: Performed By: #### C BC #### [facility] [address] [place] [address] Dr. Jani Haywood EO # 0.1 103/ul Normal 0.0-0.7 [facility] Comment on above: Performed By: #### C BC #### [facility] [address] [place] [address] Dr. Jani Haywood Eosinophils/100 WBC (Bld) 2.5 % Normal 0.9-7.0 [facility] Comment on above: Performed By: #### C BC #### [facility] [address] [place] [address] Dr. Jani Haywood Erythrocyte distribution width (RBC) [Ratio] 13.7 % Normal 11.0-15.0 [facility] Comment on above: Performed By: #### C BC #### [facility] [address] [place] [address] Dr. Jani Haywood Hematocrit (Bld) [Volume fraction] 40.3 % Normal 36.0-48.0 [facility] Comment on above: Performed By: #### C BC #### [facility] [address] [place] [address] Dr. Jani Haywood Hemoglobin (Bld) [Mass/Vol] 12.7 g/dL Normal 12.0-16.0 [facility] Comment on above: Performed By: #### C BC #### [facility] [address] [place] [address] Dr. Jani Haywood IG # 0.01 10e3/ul Normal 0.00-0.03 [facility] Comment on above: Performed By: #### C BC #### [facility] [address] [place] [address] Dr. Jani Haywood IG % 0.2 % Normal 0.0-0.5 [facility] Comment on above: Performed By: #### C BC #### [facility] [address] [place] [address] Dr. Jani Haywood LYMPH # 1.8 103/ul Normal 1.2-3.8 [facility] Comment on above: Performed By: #### C BC #### [facility] [address] [place] [address] Dr. Jani Haywood Lymphocytes/100 WBC (Bld) 35.2 % Normal 20.5-60.0 [facility] Comment on above: Performed By: #### C BC #### [facility] [address] [place] [address] Dr. Jani Haywood MANUAL DIFF REQ NO Normal [facility] Comment on above: Performed By: #### C BC #### [facility] [address] [place] [address] Dr. Jani Haywood MCH (RBC) [Entitic mass] 30.5 pg Normal 26.7-34.0 [facility] Comment on above: Performed By: #### C BC #### [facility] [address] [place] [address] Dr. Jani Haywood MCHC (RBC) [Mass/Vol] 31.5 g/dL Normal 29.9-35.2 [facility] Comment on above: Performed By: #### C BC #### [facility] [address] [place] [address] Dr. aJni Haywood MCV (RBC) [Entitic vol] 96.9 fL Normal 81.0-99.0 [facility] Comment on above: Performed By: #### C BC #### [facility] [address] [place] [address] Dr. Jani Haywood MONO # 0.4 103/ul Normal 0.3-0.8 [facility] Comment on above: Performed By: #### C BC #### [facility] [address] [place] [address] Dr. Jani Haywood Monocytes/100 WBC (Bld) 8.1 % Normal 1.7-12.0 [facility] Comment on above: Performed By: #### C BC #### [facility] [address] [place] [address] Dr. Jani Haywood NEUT # 2.8 103/ul Normal 1.4-6.5 [facility] Comment on above: Performed By: #### C BC #### [facility] [address] [place] [address] Dr. Jani Haywood Neutrophils/100 WBC (Bld) 53.4 % Normal 43.0-75.0 [facility] Comment on above: Performed By: #### C BC #### [facility] [address] [place] [address] Dr. Jani Haywood Platelet mean volume (Bld) [Entitic vol] 10.0 fL Normal 9.5-13.5 [facility] Comment on above: Performed By: #### C BC #### [facility] [address] [place] [address] Dr. Jani Haywood PLT 271 103/ul Normal 150-450 [facility] Comment on above: Performed By: #### C BC #### [facility] [address] [place] [address] Dr. Jani Haywood RBC 4.16 106/ul Critically low 4.20-5.40 [facility] Comment on above: Performed By: #### C BC #### [facility] [address] [place] [address] Dr. Jani Haywood WBC 5.2 103/ul Normal 4.0-11.0 [facility] Comment on above: Performed By: #### C BC #### [facility] [address] [place] [address] Dr. Jani Haywood IRONon 07-29-2022 Iron [Mass/Vol] 64.0 ug/dL Normal 50.0-170.0 [facility] Comment on above: Performed By: #### A 1C #### [facility] [address] [place] [address] Dr. Jani Haywood PROF 14(COMP METB)on 023 Albumin [Mass/Vol] 3.5 g/dL Normal 3.4-5.0 [facility] Comment on above: Performed By: #### C MP #### [facility] [address] [place] [address] Dr. Jani Haywood Albumin/Globulin [Mass ratio] 0.9 {ratio} Normal [facility] Comment on above: Performed By: #### C MP #### [facility] [address] [address] [address] Jani Haywood ALP [Catalytic activity/Vol] 73 U/L Normal 46-116 [facility] Comment on above: Performed By: #### C MP #### [facility] [address] [address] [address] Jani Haywood ALT [Catalytic activity/Vol] 12 U/L Critically low 14-59 [facility] Comment on above: Performed By: #### C MP #### [facility] [address] [address] [address] Jani Haywood Anion gap [Moles/Vol] 11.0 mmol/L Normal [facility] Comment on above: Performed By: #### C MP #### [facility] [address] [address] [address] Jani Haywood AST [Catalytic activity/Vol] 13 U/L Critically low 15-37 [facility] Comment on above: Performed By: #### C MP #### [facility] [address] [address] [address] Jani Haywood Bilirubin [Mass/Vol] 0.5 mg/dL Normal 0.2-1.0 [facility] Comment on above: Performed By: #### C MP #### [facility] [address] [address] [address] Jani Haywood Calcium [Mass/Vol] 8.6 mg/dL Normal 8.5-10.1 [facility] Comment on above: Performed By: #### C MP #### [facility] [address] [address] [address] Jani Haywood Chloride [Moles/Vol] 105 mmol/L Normal 98-107 [facility] Comment on above: Performed By: #### C MP #### [facility] [address] [address] [address] Jani Haywood CO2 [Moles/Vol] 28.8 mmol/L Normal 21.0-32.0 [facility] Comment on above: Performed By: #### C MP #### [facility] [address] [address] [address] Jani Haywood Creatinine [Mass/Vol] 0.87 mg/dL Normal 0.55-1.02 [facility] Comment on above: Performed By: #### C MP #### [facility] [address] [address] [address] Jani Haywood EGFR-AF SLOVAK >60 Normal >=60 [facility] Comment on above: Performed By: #### C MP #### [facility] [address] [address] [address] Jani Haywood EGFR-NON AF SLOVAK >60 Normal >=60 [facility] Comment on above: Performed By: #### C MP #### [facility] [address] [address] [address] Jani Haywood Globulin (S) [Mass/Vol] 3.7 g/dL Normal [facility] Comment on above: Performed By: #### C MP #### [facility] [address] [address] [address] Jani Haywood Glucose [Mass/Vol] 95 mg/dL Normal 74-106 [facility] Comment on above: Performed By: #### C MP #### [facility] [address] [place] [address] Dr. Jani Haywood Potassium [Moles/Vol] 3.8 mmol/L Normal 3.5-5.1 [facility] Comment on above: Performed By: #### C MP #### [facility] [address] [address] [address] Jani Haywood Protein [Mass/Vol] 7.2 g/dL Normal 6.4-8.2 [facility] Comment on above: Performed By: #### C MP #### [facility] [address] [place] [address] Dr. Jani Haywood Sodium [Moles/Vol] 141 mmol/L Normal 136-145 [facility] Comment on above: Performed By: #### C MP #### [facility] [address] [place] [address] Dr[address] Jani Haywood Urea nitrogen [Mass/Vol] 12.0 mg/dL Normal 7.0-18.0 [facility] Comment on above: Performed By: #### C MP #### [facility] [address] [place] [address] Dr. Jani Haywood Urea nitrogen/Creatinine [Mass ratio] 13.8 mg/mg Normal [facility] Comment on above: Performed By: #### C MP #### [facility] [address] [place] [address] [address] Jani Haywood [facility] SARS-CoV-2 (COVID-19) RNA CAROLE+probe Ql (Unsp spec) Not detected Normal NOT DETECTED [facility] Comment on above: Result Comment: This test is not yet approved or cleared by the [place] FDA. When there are no FDA-approved or cleared tests available, and other criteria are met, FDA can make tests available under an emergency access mechanism called an Emergency Use Authorization (EUA). The EUA for this test is supported by the [employer] of Health and Human Service's (HHS's) declaration [...] consistent with SARS-CoV-2. Performed By: #### C VDTB #### [facility] [address] [place] [address] Dr. Jani Haywood US PREG <14 WKSon [...] was notified of these findings by the hot metal mixer operator at time of imaging. Electronically authenticated by: ALEXI BRANCH Date: 2022-07-16 13:36 Normal [facility] HEP B SURFACE ANTIGEN SCREEN on 07-03-2022 HBsAg Screen Negative Normal Negative [facility] Comment on above: Performed By: #### A 1C #### [facility] [address] [place] [address] Dr. Jani Haywood HEPATITIS C VIRUS AB W/ REFL EX QUANTon 07-03-2022 HCV AB <0.1 Normal 0.0-0.9 [facility] Comment on above: Performed By: #### H CVPCRR #### [facility] [address] [place] [address] Dr. Jani Haywood Interpretation: Comment Normal [facility] Comment on above: Result Comment: Nega tive Not infected with HCV, unless recent infection is suspected or other evidence exists to indicate HCV infection. Performed By: #### H CVPCRR #### [facility] [address] [place] [address] Dr. Jani Haywood HIV 1 AND 2 WITH REFLEXon HIV Screen 4th Generation wRfx Non-Reactive Normal Non Reactive [facility] Comment on above: Result Comment: HIV Negative HIV-1/HIV-2 antibodies and HIV-1 p24 antigen were NOT detected. There is no laboratory evidence of HIV infection. Performed By: #### H IV12 #### [facility] [address] [place] [address] Dr. Jani Haywood RPR QUANTon 07-03-2022 Rapid Plasma Reagin, Quant Non-Reactive Normal NonRea<1:1 [facility] Comment on above: Result Comment: Plea se Note: This test does not meet current guidelines for screening and diagnosis of syphilis. This test is intended for following treatment response in patients being treated for syphilis infection. To screen for syphilis infection, a reflex cascade that includes both RPR and a treponema-specific assay should be utilized, such as Treponema pallidum (Syphilis) Screening [place] (066184) or Rapid Plasma Reagin (RPR) Test With Reflex to Quantitative RPR and Confirmatory Treponema pallidum Antibodies (121137). Performed By: #### R PRQ #### [facility] [address] [place] [address] Dr. Jani Haywood RUBELLA AB IGGon 07-03-2022 Rubella Antibodies, IgG 2.92 index Normal Immune >0.99 [facility] Comment on above: Result Comment: Non- immune <0.90 Equivocal 0.90 - 0.99 Immune >0.99 Performed By: #### A 1C #### [facility] [address] [place] [address] Dr. Jani Haywood CBC AUTO DIFFon 07-02-2022 BASO # 0.1 103/ul Normal 0.0-0.1 [facility] Comment on above: Performed By: #### C BC #### [facility] [address] [place] [address] Dr. Jani Haywood Basophils/100 WBC (Bld) 0.7 % Normal 0.2-2.0 [facility] Comment on above: Performed By: #### C BC #### [facility] [address] [place] [address] Dr. Jani Haywood EO # 0.1 103/ul Normal 0.0-0.7 [facility] Comment on above: Performed By: #### C BC #### [facility] [address] [place] [address] Dr. Jani Haywood Eosinophils/100 WBC (Bld) 1.2 % Normal 0.9-7.0 [facility] Comment on above: Performed By: #### C BC #### [facility] [address] [place] [address] Dr. Jani Haywood Erythrocyte distribution width (RBC) [Ratio] 13.7 % Normal 11.0-15.0 [facility] Comment on above: Performed By: #### C BC #### [facility] [address] [place] [address] Dr. Jani Haywood Hematocrit (Bld) [Volume fraction] 37.9 % Normal 36.0-48.0 [facility] Comment on above: Performed By: #### C BC #### [facility] [address] [place] [address] Dr. Jani Haywood Hemoglobin (Bld) [Mass/Vol] 12.6 g/dL Normal 12.0-16.0 [facility] Comment on above: Performed By: #### C BC #### [facility] [address] [place] [address] Dr. Jani Haywood IG # 0.02 10e3/ul Normal 0.00-0.03 [facility] Comment on above: Performed By: #### C BC #### [facility] [address] [place] [address] Dr. Jani Haywood IG % 0.3 % Normal 0.0-0.5 [facility] Comment on above: Performed By: #### C BC #### [facility] [address] [place] [address] Dr. Jani Haywood LYMPH # 1.6 103/ul Normal 1.2-3.8 [facility] Comment on above: Performed By: #### C BC #### [facility] [address] [place] [address] Dr. Jani Haywood Lymphocytes/100 WBC (Bld) 21.5 % Normal 20.5-60.0 [facility] Comment on above: Performed By: #### C BC #### [facility] [address] [place] [address] Dr. Jani Haywood MANUAL DIFF REQ NO Normal [facility] Comment on above: Performed By: #### C BC #### [facility] [address] [place] [address] Dr. Jani Haywood MCH (RBC) [Entitic mass] 30.4 pg Normal 26.7-34.0 [facility] Comment on above: Performed By: #### C BC #### [facility] [address] [address] [address] Jani Haywood MCHC (RBC) [Mass/Vol] 33.2 g/dL Normal 29.9-35.2 [facility] Comment on above: Performed By: #### C BC #### [facility] [address] [place] [address] Dr. Jani Haywood MCV (RBC) [Entitic vol] 91.3 fL Normal 81.0-99.0 [facility] Comment on above: Performed By: #### C BC #### [facility] [address] [place] [address] Dr. Jani Haywood MONO # 0.5 103/ul Normal 0.3-0.8 [facility] Comment on above: Performed By: #### C BC #### [facility] [address] [place] [address] Dr. Jani Haywood Monocytes/100 WBC (Bld) 6.6 % Normal 1.7-12.0 [facility] Comment on above: Performed By: #### C BC #### [facility] [address] [place] [address] Dr. Jani Haywood NEUT # 5.1 103/ul Normal 1.4-6.5 [facility] Comment on above: Performed By: #### C BC #### [facility] [address] [place] [address] Dr. Jani Haywood Neutrophils/100 WBC (Bld) 69.7 % Normal 43.0-75.0 [facility] Comment on above: Performed By: #### C BC #### [facility] [address] [place] [address] Dr. Jani Haywood Platelet mean volume (Bld) [Entitic vol] 10.2 fL Normal 9.5-13.5 [facility] Comment on above: Performed By: #### C BC #### [facility] [address] [place] [address] Dr. Jani Haywood PLT 281 103/ul Normal 150-450 [facility] Comment on above: Performed By: #### C BC #### [facility] [address] [address] [address] Jani Haywood RBC 4.15 106/ul Critically low 4.20-5.40 [facility] Comment on above: Performed By: #### C BC #### [facility] [address] [address] [address] Jani Haywood WBC 7.3 103/ul Normal 4.0-11.0 [facility] Comment on above: Performed By: #### C BC #### [facility] [address] [place] [address] Dr. Jani Haywood GLYCOHEMOGLOBIN A1Con 2022 ADA RECOMMENDATION SEE BELOW Normal [facility] Comment on above: Result Comment: ADA RECOMMENDED LIMIT 4.0 - 6.0 ADA THERAPEUTIC TARGET < 7.0 ACTION SUGGESTED > 7.0 Performed By: #### A 1C #### [facility] [address] [place] [address] Dr. Jani Haywood Glucose [Mass/Vol] 103 mg/dL Normal [facility] Comment on above: Performed By: #### A 1C #### [facility] [address] [place] [address] Dr. Jani Haywood HbA1c (Bld) [Mass fraction] 5.2 % Normal 4.5-6.2 [facility] Comment on above: Performed By: #### A 1C #### [facility] [address] [place] [address] Dr. Jani Haywood CRISTELA BOX TEST PT SEND OUTo n 07-02-2022 SENT TO REF LAB 07/02/2022 Normal [facility] Comment on above: Performed By: #### N BOX #### [facility] [address] [place] [address] Dr. Jani Haywood TYPE AND SCREENon 07-02-2022 TYPE AND SCREEN Negative Normal [facility] Comment on above: Performed By: #### A 1C #### [facility] [address] [place] [address] Dr. Jani Haywood US PREG TVon 06-18-2022 [...] by: RIMMA BATRES Date: 2022-06-18 16:09 Normal [facility] PAP ACOG PANEL 2: 30 to 65on 12-03-2021 . . Normal [facility] Comment on above: Result Comment: Perf ormed at: WB Performed By: #### 4 [id number] #### [facility] [address] [place] [address] Dr. Jani Haywood Age Gdln ACOG Testing 30-65 Normal [facility] Comment on above: Performed By: #### 4 [id number] #### [facility] [address] [place] [address] Dr. Jani Haywood DIAGNOSIS: Comment Normal [facility] Comment on above: Result Comment: NEGA TIVE FOR INTRAEPITHELIAL LESION OR MALIGNANCY. Performed at: WB Performed By: #### 4 [id number] #### [facility] [address] [place] [address] Dr. Jani Haywood HPV Aptima Negative Normal Negative [facility] Comment on above: Result Comment: This nucleic acid amplification test detects fourteen high-risk HPV types (16,18,31,33,35,39,45,51,52,56,58,59,66,68) without differentiation. Performed at: =G Performed By: #### 4 [id number] #### [facility] [address] [address] [address] Jani Haywood Methodology: Comment Normal [facility] Comment on above: Result Comment: This liquid based ThinPrep(R) pap test was screened with the use of an image guided system. Performed at: WB Performed By: #### 4 [id number] #### [facility] [address] [place] [address] Dr. Jani Haywood Note: Comment [facility] Comment on above: Result Comment: The Pap smear is a screening test designed to aid in the detection of premalignant and malignant conditions of the uterine cervix. It is not a diagnostic procedure and should not be used as the sole means of detecting cervical cancer. Both false-positive and false-negative reports do occur. . Performed at: WB Performed By: #### 4 [id number] #### [facility] [address] [place], [place] [id number] Dr. Jani Haywood Performed by: Comment Normal [facility] Comment on above: Result Comment: Nikki Schwab, Property Controller (ASCP) Performed at: WB Performed By: #### [id number] #### [facility] [address] [place] [address] [address] Jani Haywood Specimen adequacy: Comment Normal [facility] Comment on above: Result Comment: Sati sfactory for evaluation. Endocervical and/or squamous metaplastic cells (endocervical component) are present. Performed at: WB Performed By: #### [id number] #### [facility] [address] [place] [address] Jani Haywood Vital Signs Date Time Vital Sign Value Performing Clinician Facility 07-30-2023 09:32-0500 Body mass index (BMI) [Ratio] 25.88 kg/m2 Ivan Pollo DO Work Phone: [facility] 07-30-2023 09:32-0500 Body weight 66.28 kg Ivan Pollo DO Work Phone: [facility] 07-30-2023 09:32-0500 Diastolic blood pressure 60 mm[Hg] Ivan Pollo DO Work Phone: [facility] 07-30-2023 09:32-0500 Systolic blood pressure 100 mm[Hg] Ivan Pollo DO Work Phone: [facility] 07-23-2023 14:33-0500 Body mass index (BMI) [Ratio] 26.24 kg/m2 Terese REYES Work Phone: [facility] 07-23-2023 14:33-0500 Body weight 67.19 kg Terese REYES Work Phone: [facility] 07-23-2023 14:33-0500 Diastolic blood pressure 68 mm[Hg] Terese REYES Work Phone: [facility] 07-23-2023 14:33-0500 Systolic blood pressure 110 mm[Hg] Terese REYES Work Phone: [facility] 11-24-2021 14:10-0400 Body height 160.02 cm Megan Oconnor Other [employer] Other 11-24-2021 14:10-0400 Body mass index (BMI) [Ratio] 20.55 kg/m2 Megan Oconnor Other [employer] Other 11-24-2021 14:10-0400 Body temperature 96.9 [degF] Megan Oconnor Other [employer] Other 11-24-2021 14:10-0400 Body weight 52.62 kg Megan Oconnor Other [employer] Other 11-24-2021 14:10-0400 SaO2% (BldA) [Mass fraction] 97 % Megan Oconnor Other [employer] Other Encounters Encounter Date Encounter Type Care Provider Facility Start: 07-30-2023 End: 07-30-2023 ambulatory IVAN POLLO Not Available Start: 07-30-2023 End: 07-30-2023 flow sheet Ivan Abad DO Work Phone: [facility] Comment on above: Third trimester preg luan; Small for gestational age (SGA) Start: 07-23-2023 End: 07-23-2023 ambulatory TERESE AGUILA Not Available Start: 07-23-2023 End: 07-23-2023 flow sheet Terese REYES Work Phone: [facility] Comment on above: Low blood pressure r eading; Dizziness; Feeling faint; Third trimester Start: 07-21-2023 End: 07-21-2023 ambulatory YULISSA JAIME Facility:[facility] Start: 07-15-2023 End: 07-15-2023 ambulatory TERESE AGUILA Not Available Start: 07-01-2023 End: 07-01-2023 ambulatory IVAN POLLO Not Available Start: 06-18-2023 End: 06-18-2023 ambulatory TERESE AGUILA Not Available Start: 05-20-2023 End: 05-20-2023 ambulatory IVAN POLLO Not Available Start: 10-10-2022 Telephone encounter Leo Atkinson [place] Comment on above: [employer] Start: 10-09-2022 ambulatory Yulissa WOOD Work Phone: Audiology Start: 09-24-2022 End: 09-24-2022 ambulatory RIMMA STERLING Facility:[facility] Start: 09-24-2022 End: 09-24-2022 Patient encounter procedure Rimma Sterling PA-C Work Phone: Otolaryngology Comment on above: Cochlear implant in place (Primary Dx); Sensorineural hearing loss, asymmetrical; Sensorineural hearing loss, bilateral Start: 07-29-2022 End: 07-30-[address] ARIEL RAJAN Facility:[facility] Start: 07-18-2022 End: 07-18-[address] ROSA CARTER Facility:[facility] Start: 07-17-2022 Encounter for preprocedural laboratory examination DR ROSA CARTER [facility] Start: 07-16-2022 End: 07-17-[address] ROSA CARTER Facility:[facility] Start: 07-16-2022 End: 07-17-2022 Encounter for preprocedural laboratory examination DR ROSA CARTER Facility:[facility] Start: 07-02-2022 End: 07-03-[address] ROSA CARTER Facility:[facility] Start: 06-18-2022 End: 06-19-[address] ROSA CARTER Facility:[facility] Start: 11-27-2021 End: 11-27-[address] ROSA CARTER Facility:[facility] Start: 11-24-2021 End: 11-24-2021 ambulatory Megan Oconnor Other [employer] Other Start: 11-24-2021 Office outpatient vi sit 25 minutes Megan Oconnor [facility] Procedures Date Procedure Procedure Detail Performing Clinician Start: 07-30-2023 Urnls dip stick/tabl et rgnt non-auto w/o micrscp Ivan Abad DO Work Phone: Start: 07-23-2023 Urnls dip stick/tabl et rgnt non-auto w/o micrscp Terese REYES Work Phone: Start: 04-22-2023 Microscopic observat ion [Identifier] in Cervix by Cyto stain Terese REYES Work Phone: Plan of Treatment Date Care Activity Detail Author Start: 11-17-2044 PNEUMOCOCCAL (3 - PPSV23 if available, else PCV20) PNEUMOCOCCAL (3 - PPSV23 if available, else PCV20) [facility] Start: 04-22-2028 Screening for malign ant neoplasm of cervix [facility] Start: 04-26-2024 End: 04-26-2024 Patient encounter procedure 04/26/2024 9:00 AM EST Office Visit [facility] [address] [place] [address] Ivan Abad, DO [address] [place] [address] [facility] Start: 08-13-2023 End: 08-13-2023 Patient encounter procedure 08/13/2023 11:20 AM EST Routine [facility] [address] [place] [id number] Ivan Abad, DO [address], [place] [id number] [facility] Start: 07-30-2023 End: 07-30-2024 US biophysical profile w non stress test US biophysical profile w non stress test Imaging Routine Small for gestational age (SGA) Expected: 07/30/2023 (Approximate), Expires: 07/30/2024 [facility] Work Phone: Comment on above: Expected: 07/30/2023 (Approximate), Expires: 07/30/2024 Start: 07-30-2023 End: 07-30-2023 Patient encounter procedure 07/30/2023 9:20 AM EST Routine [facility] [address] [place] [address] Ivna Abad, [address] [facility] [place] [address] [facility] Start: 07-23-2023 End: 07-23-2023 Professional / ancillary services management 07/23/2023 3:00 PM EST Ancillary Procedure [facility] [address] [place] [id number] [facility] Start: 02-20-2023 Influenza vaccination [facility] Start: 06-22-2022 DEPRESSION ASSESSMENT DEPRESSION ASS ESSMENT [facility] Start: 10-20-2021 COVID-19 VACCINE (3 - Booster for Pfizer series) COVID-19 VACCINE (3 - Booster for Pfizer series) [facility] Start: 2019 Mammography MAMMOGRAM [facility] Start: 2019 Screening for malign ant neoplasm of breast Mammogram [facility] Start: 11-17-2009 HPV TESTING HPV TESTING [facility] Start: 11-17-2000 PAP TESTING PAP TESTING [facility] Start: 11-17-1998 Urine microalbumin profile DTAP,TDAP,TD (1 - Tdap) [facility] Start: 11-17-1997 HEPATITIS C SCREENING HEPATITIS C SC REENING [facility] Start: 11-17-1997 HIV SCREENING HIV SCREENING [facility] Start: 1979 HEPATITIS B (1 of 3 - 3-dose series) HEPATITIS B (1 of 3 - 3-dose series) [facility] Immunizations Immunization Date Immunization Notes Care Provider Fa cili 03-22-2020 influenza virus vacc ine, unspecified formulation Terese REYES Work Phone: [facility] 08-13-2017 pneumococcal polysaccharide vaccine, 23 valent Rimma Sterling PA-C Work Phone: [facility] 08-10-2014 pneumococcal conjuga te vaccine, 13 valent Rimma Sterling PA-C Work Phone: [facility] Payers Date Payer Category Payer Unknown [id number] 2022 Unknown [id number] 1979 Unknown [id number] 2.16.84 [id number] 1979 Unknown [id number] 2.16.84 [id number] 1979 Unknown [id number] 2.16.84 [id number] 1979 Unknown [id number] 2.16.84 [id number] 1979 Unknown [id number] 2.16.84 [id number] 1979 Unknown [id number] 2.16.84 0.1.307949.3.579.2.593 1979 Unknown [id number] 2.16.84 [id number] 1979 Unknown [id number] 2.16.84 0.1.050681.3.579.2.1259 1979 Unknown [id number] 2.16.84 0.1.474479.3.579.2.1259 1979 Unknown [id number] 2.16.84 [id number] 1979 Unknown [id number] 2.16.84 0.1.502301.3.579.2.1259 1979 Unknown [id number] 2.16.840 .[id number] 1979 Unknown [id number] 2.16.840 .[id number] 1960 [facility] [id number] Unknown [id number] 2.16.84 [id number] Social History Date Type Detail Facility Start: 03-16-2023 Sex Assigned At [employer] Other Start: 09-24-2022 End: 03-16-2023 Tobacco smoking status NHIS Never smoked tobacco [facility] Start: 09-24-2022 End: 03-16-2023 Tobacco use and exposure Smokeless tobacco non-user [facility] Start: 09-24-2022 Alcohol intake Current non-drinker of alcohol (finding) [facility] Start: 1980 Sex Assigned At Female [facility] Start: 07-23-2023 End: 07-30-2023 Alcohol intake Ex-drinker (finding) [facility] Start: 03-16-2023 History of Social function [facility] Start: 04-22-2023 Alcohol Comment occasional alcohol use, Caffeine intake: none [facility] Start: 12-25-2022 [facility] Start: 01-21-2023 Gender identity Identifies as female gender (finding) [facility] Start: 01-21-2023 Sexual orientation Heterosexual (finding) [facility] Medical Equipment Procedure Code Equipment Code Equipment Original Text Equipment Identifier Dates [employer] Implant - [id number] Start: 09-02-2017 Comment on above: Description: [employer] Goals Date Patient Goal Desired Activity /State Personal health goal Clinical Notes 11-24-2021 to 07-30-2023 Ivan Abad DO - 07/30/2023 9:20 AM ERIC Guan - 07/23/2023 2:20 PM ESTTelephone Encounter - Leo Atkinson - 10/10/2022 3:51 PM Sigrid Jaime, AUD - 10/09/2022 12:57 PM EDT Note Date & Type Note Facility 07-30-2023 History of Presen t illness Narrative Reason for Appointment: Patient ID: Amy Alfaro is a 42 y.o. female who presents for Routine Visit Patient presents today for Return OB appointment. Current Medications: has a current medication list which includes the following prescription(s): aspirin, docusate sodium, famotidine, and . Medical History: Active Ambulatory Problems Diagnosis Date Noted No Active Ambulatory Problems Resolved Ambulatory Problems Diagnosis Date Noted No Resolved Ambulatory Problems Past Medical History: Diagnosis Date BMI 20.0-20.9, adult Family history of breast cancer in first degree relative Hearing loss, sensorineural Family History Problem Relation Name Age of Onset Multiple sclerosis Mother Diabetes Father Diabetes Other Hypertension Other Depression Other Cancer Other Heart disease Other Breast cancer Other Social History Tobacco Use Smoking status: Never Smokeless tobacco: Never Substance Use Topics Alcohol use: Not Currently Comment: occasional alcohol use, Caffeine intake: none Drug use: Never Past Surgical History: Procedure Laterality Date COCHLEAR IMPLANT Left 09/02/2017 DILATION AND CURETTAGE PAP SMEAR 11/27/2021 Allergies Allergen Reactions Octacosanol Cough Other Unknown Review of Systems: Review of Systems Constitutional: Negative. HENT: Negative. Eyes: Negative. Respiratory: Negative. Cardiovascular: Negative. Gastrointestinal: Negative. Genitourinary: Negative. Musculoskeletal: Negative. Skin: Negative. Neurological: Negative. All other systems reviewed and are negative. Hematological: Negative. Endocrine: Negative. Allergic/Immunologic: Negative. Objective OBGyn Exam Vitals: Estimated body mass index is 25.88 kg/m as calculated from the following: Height as of 23: 5' 3 . Weight as of this encounter: 146 lb 1.9 oz. BP: 100/60 Patient's last menstrual period was 12/11/2022 (approximate). Assessment/Plan Encounter Diagnoses Name Primary? Third trimester Small for gestational age (SGA) Patient presents today for a routine obstetrics appointment. Patient is currently 33w4d . Patient states she is doing well but has complaints of being tired due to current . Patient has verbalizes frequent movement. labor precautions was discussed/given and patient was instructed to perform kick counts three times a day. Follow Up: Patient is to return to office in 2 week for routine OB appointment. Documented by Ivan Abad DO on behalf of: Ivan Abad DO documented in this encounter [facility] 07-23-2023 History of Presen t illness Narrative Reason for Appointment: Patient ID: Amy Alfaro is a 42 y.o. female who presents for Dizziness (/) and Hypotension Patient presents today for Return OB appointment. Patient presents today for a routine obstetrics appointment. Patient is currently 32w0d with a Estimated Date of Delivery: 09/17/23. Current Medications: has a current medication list which includes the following prescription(s): aspirin, docusate sodium, famotidine, and . Medical History: Active Ambulatory Problems Diagnosis Date Noted No Active Ambulatory Problems Resolved Ambulatory Problems Diagnosis Date Noted No Resolved Ambulatory Problems Past Medical History: Diagnosis Date BMI 20.0-20.9, adult Family history of breast cancer in first degree relative Hearing loss, sensorineural Family History Problem Relation Name Age of Onset Multiple sclerosis Mother Diabetes Father Diabetes Other Hypertension Other Depression Other Cancer Other Heart disease Other Breast cancer Other Social History Tobacco Use Smoking status: Never Smokeless tobacco: Never Substance Use Topics Alcohol use: Not Currently Comment: occasional alcohol use, Caffeine intake: none Drug use: Never Past Surgical History: Procedure Laterality Date COCHLEAR IMPLANT Left 09/02/2017 DILATION AND CURETTAGE PAP SMEAR 11/27/2021 Allergies Allergen Reactions Octacosanol Cough Other Unknown Review of Systems: Review of Systems Constitutional: Negative. HENT: Negative. Eyes: Negative. Respiratory: Negative. Cardiovascular: Negative. Gastrointestinal: Negative. Genitourinary: Negative. Musculoskeletal: Negative. Skin: Negative. Neurological: Negative. All other systems reviewed and are negative. Hematological: Negative. Endocrine: Negative. Allergic/Immunologic: Negative. Objective Physical Exam Constitutional: Appearance: Normal appearance. She is normal weight. HENT: Head: Normocephalic. Cardiovascular: Rate and Rhythm: Normal rate. Pulses: Normal pulses. Pulmonary: Effort: Pulmonary effort is normal. Breath sounds: Normal breath sounds. Abdominal: Palpations: Abdomen is soft. Musculoskeletal: General: Normal range of motion. Neurological: General: No focal deficit present. Mental Status: She is alert and oriented to person, place, and time. Psychiatric: Mood and Affect: Mood normal. Behavior: Behavior normal. Thought Content: Thought content normal. Judgment: Judgment normal. Vitals and nursing note reviewed. Vitals: Estimated body mass index is 26.24 kg/m as calculated from the following: Height as of 02/20/23: 5' 3 . Weight as of this encounter: 148 lb 1.9 oz. BP: 110/68 Patient's last menstrual period was 12/11/2022 (approximate). Assessment/Plan Encounter Diagnoses Name Primary? Low blood pressure reading Dizziness Feeling faint Third trimester Pt experienced light headed and dizziness 2 days ago while at work. Pt doing well now and states she has not had another episode. Patient presents today for a routine obstetrics appointment. Patient is currently 32w0d . Patient states she is doing well but has complaints of being tired due to current . Patient has verbalizes frequent movement. labor precautions was discussed/given and patient was instructed to perform kick counts three times a day. Follow Up: Patient is to return to office in 2 week for routine OB appointment. Documented by ERIC Smallwood on behalf of: ERIC Smallwood documented in this encounter [facility] 07-21-2023 Note HNO ID: [id number] Author: YULISSA JAIME AUD Service: ? Author Type: Roto Mixer Operator Type: Progress Notes Filed: 07/21/2023 08:47 Note Text: [place] [facility] COCHLEAR IMPLANT ADULT PROGRAMMING Name: Amy ALFARO CC#: [id number] Date of Service: July 21, 2023 Date of : 1980 Age: [age] year old COCHLEAR IMPLANT INFORMATION (see below for all device details) Updated: July 21, 2023 Right ear: Phonak Audeo RITE Hearing Aid that was fit at an outside facility (November 2021) and is being managed by that facility. Left ear: External Processor: Cochlear [place] [id number] (Nucleus 8; upgraded around January 2023) Processor SN: [id number] Processor ([id number]) SN: [id number] Magnet strength: 2 Internal Device: Cochlear CI532 Profile with Slim Modiolar Electrode Array Internal Device SN: [id number] Inactive electrodes: None Surgery Date: 09/02/2017 Initial activation date: 09/29/217 Surgeon: Reyna Yeung M.D. Accessories: Remote Control (CR310) Mini Microphone 2+ Phone Clip HISTORY: Ms. ALFARO was seen for annual evaluation of the device. The patient reported: - Received upgraded sound processor (Nucleus 8) around January 2023 - Initially noted concerns with the device not consistently powering on (often in the evening after showering; however, removing and replacing battery would resolve the issue). This happened again once last week. - Rarely remembers to use Forward Focus - Volume is good - Denied pain/discomfort at magnet site - No retention concerns - Relies heavily on her cochlear implant, but prefers sound quality in the bimodal condition - Patient is currently expected her second son in August 2023 UNAIDED AUDIOMETRIC TESTIN09/28/2017: AIDED AUDIOMETRIC TESTING: Audiologic testing was completed in the sound field with the speech processor at user settings (Program: 1; Volume: 6; Sensitivity: 12) before programming. See the Sound ClipsForm Audiogram for obtained thresholds. Speech perception testing was completed at 60 bow tacker using recorded stimuli in the sound field at 0 degrees azimuth. NOTE: The contralateral ear was not plugged and muffed during testing. The following testing and results were obtained: Zavrhhkpf-Oykprpc-Twdwtkiqu Words (CNC) Test Condition List # Phonemes Words Clinically significant change compared to previous visit? Clinically significant change compared to BEST? Clinically significant change compared to Evaluation (07/19/2014)? Left Ear 3 89% 76% No (88% on 03/18/22) No (92% on 09/29/18) Yes, improved (0%) Bimodal 7 93% 80% Yes, decreased (100% on 03/18/22) Yes, decreased (100% on 03/18/22) No (68%) [place] BIO (+5 SNR) Test Condition List # Score Clinically significant change compared to previous visit? Clinically significant change compared to BEST? Clinically significant change compared to Evaluation (07/19/2014)? Left Ear 7 61% No (48% on 03/18/22) No (74% on 12/09/19) DNT Bimodal 8 57% No (62% on 03/18/22) No (68% on 12/09/19) DNT Summary: Aided detection levels were obtained between 20-30 dB HL from 250-6000 Hz using the LEFT CI only. Speech perception performance is essentially stable, although significantly decreased performance was noted for CNC Words in the bimodal condition. COCHLEAR IMPLANT PROGRAMMING/TROUBLESHOOTING: Dataloggin.6 hours of use per day LEFT Programming: [...] were measured and the rest were interpolated. No changes made today. The function/use of the programs created were discussed and are listed below: Left Ear Program/Map # Program Feature 1 22 SCAN (ADRO + ASC), SNR-NR,WNR 2 22 SCAN 2 FF (ADRO + ASC), SNR-NR,WNR Active controls include: Forward Focus, Volume, and Telecoil. Battery Life: Rechargeable: 27 hours Disposable: 45 hours SUMMARY AND RECOMMENDATIONS: Counseling Points: * Continue to monitor equipment function and contact Cochlear if replacement equipment is needed. Consider trying new cable coil to see if this helps with intermittent powering on issues if needed. * Continue to monitor magnet/incision site for pain, redness, swelling, scabbing etc. Should any of these occur discontinue use of device immediately and contact the office. * Continue use of the right hearing aid and left sound processor during all waking hours. * Revie (more content not included)... [facility] 10-10-2022 Miscellaneous Notes Life Scientists: Katerina Mina Patient: Hasmukh Alfaro 1980 Clinic: [facility] Roto Mixer Operator: Dr. Yulissa Jaime Appointment Length: 45 Minutes What are you looking to accomplish?: I d like to learn more about the Nucleus 8 and the process of upgrading Recipient's Stated Reason for Upgrading Clinic Request - Roto Mixer Operator recommended it [employer] - Processor more [...] steps are Acquisition Methods Recipient will receive Iwg-en-Qoqgzz cost estimate once order placed Next Steps If recipient decides to move forward with pursuing a Nucleus 8 upgrade and provides us with the necessary order information, we will start an order on their behalf. You will hear from Cochlear s Veterinary Medicine Doctor team, via email/DocuSign to gain your approval or regarding an LMN to allow this patient to move forward in the process. Following completion of the upgrade process, I will invite the recipient to schedule time for a complimentary onboarding with our [employer] team so they can begin to maximize the use of their new Cochlear equipment. documented in this encounter [facility] 10-09-2022 Note HNO ID: [id number] Author: ISRAEL Champion Service: ? Author Type: Roto Mixer Operator Type: Progress Notes Filed: 10/09/2022 12:58 PM [...] any questions. Upgrade Consultation Clinic Patient Report Life Scientists: Katerina Mina Patient: Hasmukh Alfaro 1980 Clinic: [facility] Roto Mixer Operator: Dr. Yulissa Jaime Appointment Length: 45 Minutes What are you looking to accomplish?: I?d like to learn more about the Nucleus 8 and the process of upgrading Recipient's Stated Reason for Upgrading ? Clinic Request - Roto Mixer Operator recommended it ? [employer] - Processor [...] are Acquisition Methods ? Recipient will receive Csi-zc-Ekwfjz cost estimate once order placed Next Steps ? If recipient decides to move forward with pursuing a Nucleus 8 upgrade and provides us with the necessary order information, we will start an order on their behalf. You will hear from Cochlear?s Veterinary Medicine Doctor team, via email/DocuSign to gain your approval or regarding an LMN to allow this patient to move forward in the process. Following completion of the upgrade process, I will invite the recipient to schedule time for a complimentary onboarding with our [employer] team so they can begin to maximize the use of their new Cochlear equipment. Warm Regards, Eloisa Vazquez, [facility]/A Clinical Roto Mixer Operator [facility] 10-09-2022 History of Presen t illness [...] any questions. Upgrade Consultation Clinic Patient Report Life Scientists: Katerina Mina Patient: Hasmukh Alfaro 1980 Clinic: [facility] Roto Mixer Operator: Dr. Yulissa Jaime Appointment Length: 45 Minutes What are you looking to accomplish?: I d like to learn more about the Nucleus 8 and the process of upgrading Recipient's Stated Reason for Upgrading Clinic Request - Roto Mixer Operator recommended it [employer] - Processor more [...] steps are Acquisition Methods Recipient will receive Xmc-tz-Jiumkq cost estimate once order placed Next Steps If recipient decides to move forward with pursuing a Nucleus 8 upgrade and provides us with the necessary order information, we will start an order on their behalf. You will hear from Cochlear s Veterinary Medicine Doctor team, via email/DocuSign to gain your approval or regarding an LMN to allow this patient to move forward in the process. Following completion of the upgrade process, I will invite the recipient to schedule time for a complimentary onboarding with our [employer] team so they can begin to maximize the use of their new Cochlear equipment. Warm Regards, Eloisa Vazquez, [facility]/A Clinical Roto Mixer Operator documented in this encounter [facility] 09-24-2022 Note HNO ID: [id number] Author: Rimma Sterling PA-C Service: ? Author Type: Physician Chip Frier Type: Progress Notes Filed: 09/24/2022 9:53 AM Note Text: History of Present Illness Ms. AMY ALFARO is a 41 year old year old female presenting for: referred by SELF And is a patient of DO Abel Card DO [address] [place] [address] Communication will be via the electronic record [...] (FLONASE) 50 mcg/actuation nasal spray Use 1 [place] in each nostril as needed. multivitamin (DAILY [...] Medical Decision Making Level: 2 - Straightforward [facility] 09-24-2022 Instructions Rimma Sterling PA-C - 09/24/2022 9:[address] Audra Umanzor use his name on paperwork documented in this encounter [facility] 09-24-2022 History of Presen t illness Narrative History of Present Illness Ms. AMY ALFARO is a 41 year old year old female presenting for: referred by SELF And is a patient of DO Abel Card DO [address] [place] [address] Communication will be via the electronic record [...] (FLONASE) 50 mcg/actuation nasal spray Use 1 [place] in each nostril as needed. multivitamin (DAILY [...] 2 - Straightforward documented in this encounter [facility] 07-18-2022 Note EXAMINATION: US PELV IS HISTORY: Surgical procedure COMPARISON: Ultrasound less than 14 weeks 07/16/2022 TECHNIQUE: Transabdominal and transvaginal sonographic examination. FINDINGS: Final images show an empty endometrial cavity. IMPRESSION: 1. No appreciable products of conception within endometrial cavity following dilation and curettage. Electronically authenticated by: ALEXI BRANCH Date: 2022-07-18 08:21 [facility] 11-24-2021 Evaluation note Encounter Date Diagnosis [...] Fungal rash of trunk (ICD-10 - B36.9) [employer] Other Evaluation note* Diagnosis Cochlear implant in place- Primary Other postprocedural status Sensorineural hearing loss, asymmetrical Sensorineural hearing loss, bilateral [facility] Low blood pressure reading Nonspecific low blood pressure reading Dizziness Dizziness and giddiness Feeling faint Third trimester state, incidental [facility] Diagnosis Third trimester state, incidental Small for gestational age (SGA) [facility] N[facility] - Reported* Type Description Date Medical History bilateral hearing loss Surgical History cochlear implant Surgical History D&C [employer] Other Summary Purpose Family History No Family History Records FoundNo Family History Records FoundNo Family History Records Found Advance Directives No Advanced Directives Records FoundNo Advanced Directives Records FoundNo Advanced Directives Records Found Additional Source Comments REASON FOR VISIT (unrecogniz ed section and content) Reason Comments Hearing Loss New. Self referral. CI LT side. Last audio 03/18/22. Denies otalgia and otorrhea. Reason Comments Store Host - Other Reason Comments Dizziness Hypotension Reason Comments Routine Visit INFORMATION SOURCE (unrecogn ized section and content) DATE CREATED AUTHOR 07/30/2022 [facility] DATE CREATED AUTHOR AUTHOR'S ORGANIZ ATION 07/22/2023 [facility] DATE CREATED AUTHOR AUTHOR'S ORGANIZ ATION 07/31/2023 [facility] EPIC Source Comments (unrecognize d section and content) In the event this informatio n is protected by the Federal Confidentiality of Alcohol and Drug Abuse Patient Records regulations: The Federal rules restrict any use of the information to criminally investigate or prosecute any alcohol or drug abuse patient.[facility] the event this information is protected by the Federal Confidentiality of Alcohol and Drug Abuse Patient Records regulations: The Federal rules restrict any use of the information to criminally investigate or prosecute any alcohol or drug abuse patient.[facility] the event this information is protected by the Federal Confidentiality of Alcohol and Drug Abuse Patient Records regulations: The Federal rules restrict any use of the information to criminally investigate or prosecute any alcohol or drug abuse patient.[facility] Care Teams (unrecognized sec tion and content) Title One Teacher Relationship Specialty Start Date End Date JorgeAbel petit Javon PCP - General Family Medicine 03/15/14 Title One Teacher Relationship Specialty Start Date End Date Abel Sun PCP - General Family Medicine 03/15/14 Title One Teacher Relationship Specialty Start Date End Date Abel Sun PCP - General Family Medicine 03/15/14 Title One Teacher Relationship Specialty Start Date End Date Ariel Rajan MD [address] [place] [phone] PCP - General 02/16/23 Title One Teacher Relationship Specialty Start Date End Date Ariel Rajan MD [address] [facility] [place] [phone] PCP - General 02/16/23 FOR RECORDS PERTAINING TO PATIENTS WHO ARE [...] BE BASED ON THE PRIMARY CLINICAL RECORDS. [facility] [employer] [facility]. provides no warranty or guarantee of the accuracy or completeness of information in this document.
--- NOTE | 2023-08-04 20:06 | US_ITS ---
[address] [address] Patient Name: HILLARY ALFARO MRN: [facility]:[id number] date: 1980 Sex: F Assigned Patient Location: [facility] Current Patient Location: Accession/Order Number: [id number] Exam Date: 08/04/2023 20:12 Report Date: 08/05/2023 07:16 At the request of: IVAN KARIMI Procedure: US OB BPP w non-stress EXAMINATION: US OB BPP w non-stress HISTORY: SMALL FOR GESTATIONAL AGE PO5.10 COMPARISON: Ultrasound OB growth to 124 TECHNIQUE: Ultrasound biophysical profile was performed in the radiology department. BREATHING MOVEMENTS: 2.0 GROSS BODY MOVEMENTS: 2.0 TONE: 2.0 QUALITATIVE AMNIOTIC FLUID VOLUME: 2.0 PRESENTATION: CEPHALIC HEART RATE: 121.6 bpm bpm. AMNIOTIC FLUID VOLUME: 11.8 cm GESTATIONAL AGE: 33 weeks 5 days CONCLUSION: Total biophysical profile score 8.0. Electronically authenticated by: ALEXI BRANCH Date: 08/05/2023 07:16
[2023-08-04 20:39] VITALS: BP 122/69; PULSE 102
== END 2023-08-04 21:12 | disposition home or self-care (01) ==
LOC: US 07:51 → FBC 19:57
PROVIDERS: PCP Family Medicine; Visit Provider Obstetrics & Gynecology
DX: O26.843 Uterine size-date discrepancy, third trimester (principal); Z3A.33 33 weeks gestation of pregnancy
CPT/HCPCS: 59025; 76818

== ENCOUNTER 2023-08-07 07:15 | Outpatient (OUT) | payer OTHER, SELFPAY ==
--- OUTSIDE RECORDS SUMMARY | 2023-08-07 07:34 | XMS_ITS | CCD ---
Author Name Unknown Address [address] [place] [address] Organization [facility] Care Team Providers Care Chief Concierge Name Role Phone Megan Oconnor Unavailable ANDRES, [...] Unavailab Ariel Rich MD Primary Care Provider [phone] TERESE AGUILA Attending Unavailable IVAN ABAD Attending Unavailable TERESE AGUILA Attending Unavailable TERESE AGUILA Attending Unavailable IVAN ABAD Attending Unavailable IVAN ABAD Attending Unavailable Allergies Allergy Classification Reported Allergen(s) Allergy Type Date of Onset Reaction(s) Facility (4 sources) Seasonal allergy; Translations: [SEASONAL ALLERGIES] Allergy to substance 4 Cough [facility] (4 sources) Octacosanol Drug Allergy 4 Cough [facility] (4 sources) Other Propensity to adverse reactions 3 Unknown [facility] Medications Current Medications Medication Drug Class(es) Dates Sig (Normalized) Sig (Original) [id number] 200 actuat albuterol 0.09 mg/actuat metered dose [...] on above: Take 1 capsule by mo [facility] as needed. fluticasone propionate 0.05 mg/actuat metered dose nasal spray (3 sources) Corticosteroid fluticasone (FLONASE) 50 mcg/actuation nasal spray Indications: Bilateral sensorineural hearing loss , Autoimmune disorder of inner ear Use 1 Mantachie in each nostril as needed. 0 Active Comment on above: Use 1 [place] in each nostril as needed. LOW-DOSE ASPIRIN PO (2 sources) Start: 04-02-2023 End: 07-23-2023 LOW-DOSE ASPIRIN PO multivitamin (DAILY MULTIPLE) tablet (3 sources) take 1 tablet by mouth once daily multivitamin (DAILY MULTIPLE) tablet Take 1 tablet by mouth once daily. 0 Active Comment on above: Take 1 tablet by [facility] once daily. predniSONE 10 mg oral tablet [...] low weight; and growth retardation (2 sources) Goyro-adv-jjejq baby; Translations: [[place] small for gestational age, unspecified weight] 07-30-2023 [...] UA Negative Negative - 4(70) +++ mg/dL [facility] Blood, UA Positive Negative - 50 Bobby/mcL [facility] Comment on above: trace-intact Clarity, UA Clear [facility] re Color, UA Yellow [facility] Glucose, UA Negative Negative - 1999(110) ++++ mg/dL [facility] Interpretation and review of laboratory results Abnormal [facility] Ketones, UA Negative Negative - 160(16) ++++ mg/dL [facility] Leukocytes, UA Positive Negative - 500+++ Suzette/mcL [facility] Comment on above: small Nitrite, UA Negative Negative - Positive [facility] pH, UA 6.0 5 - 9 [facility], UA Negative Negative - 1999(20) ++++ mg/dL [facility] Spec Grav, UA 1.010 1 - 1.03 [facility] Urobilinogen, UA 0.2 0.2 - 12 mg/dL [facility] macro (dipstick) panel (U)on 07-23-2023 Bilirubin, UA Negative Negative - 4(70) +++ mg/dL [facility] Blood, UA Negative Negative - 50 Bobby/mcL [facility] Clarity, UA Clear [facility] re Color, UA Yellow [facility] Glucose, UA Negative Negative - 1999(110) ++++ mg/dL [facility] Interpretation and review of laboratory results Abnormal [facility] Ketones, UA Negative Negative - 160(16) ++++ mg/dL [facility] Leukocytes, UA Positive Negative - 500+++ Suzette/mcL [facility] Comment on above: small Nitrite, UA Negative Negative - Positive [facility] pH, UA 7.0 5 - 9 [facility] Protein, UA Negative Negative - 1999(20) ++++ mg/dL [facility] Spec Grav, UA 1.015 1 - 1.03 [facility] Urobilinogen, UA 0.2 0.2 - 12 mg/dL [facility] 07-21-2023 CNOV Office Visit (OTAUCR ) AMY ALFARO ([id number]) 1980 F Date Time Provider Department 07/21/23 7:30 AM YULISSA JAIME During your visit today, we recorded the following information about you: Yulissa Jaime AUD 07/21/2023 8:47 AM Signed [facility] [employer] Name: Amy ALFARO [facility]#: [id number] Date of Service: July 21, 2023 Date of : 1980 Age: [age] year old COCHLEAR IMPLANT INFORMATION (see below for all device details) Updated: July 21, 2023 Right ear: Phonak Audeo [employer]ITE Hearing Aid that was fit at an outside facility (November 2021) and is being managed by that facility. Left ear: External Processor: [employer] [id number] (Nucleus 8; upgraded around January 2023) Processor SN: [id number] Processor ([id number]) SN: [id number] Magnet strength: 2 Internal Device: Cochlear [id number] Profile with Slim Modiolar Electrode Array Internal Device SN: [id number] Inactive electrodes: None Surgery Date: 09/02/2017 Initial [...] Speech perception testing was completed at 60 protection specialist using recorded stimuli in the sound field at 0 degrees azimuth. NOTE: The contralateral ear was not plugged and muffed during testing. The following testing and results were obtained: Pptxencdb-Nibqcsr-Fpm sonant Words (CNC) Test Condition List # [...] etc. Shoul (more content not included)... Normal [facility] ALFAROAMY MAYNARD ([id number]) 1980 F Date Time Provider Department 10/10/22 CHINALEO MARIIA During your visit today, we recorded the following information about you: Leo China 10/10/2022 3:52 PM Signed Atm Servicer: Katerina Mina Patient: Hasmukh Alfaro 1980 Clinic: [facility] Basketball Assembler: Dr. Yuilssa Jaime Appointment Length: 45 Minutes What are you looking to accomplish?: I?d like to learn more about the Nucleus 8 and the process of upgrading Recipient's Stated Reason for Upgrading ? Clinic Request - Basketball Assembler recommended it ? [employer] - Processor [...] are Acquisition Methods ? Recipient will receive Ejd-jr-[id number] cost estimate once order placed Next Steps ? If recipient decides to move forward with pursuing a Nucleus 8 upgrade and provides us with the necessary order information, we will start an order on their behalf. 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 - fluticasone (FLONASE) 50 mcg/actuation nasal spray Use 1 Mantachie in each nostril as needed. - multivitamin [...] Encounter Status:Closed by LEO ATKINSON on 10/10/22 [facility] CNOVon 09-24-2022 CNOV Office Visit (OTOLCR ) AMY ALFARO ([id number]) 1980 F Date Time Provider Department 09/24/22 9:30 AM RIMMA STERLING OTOLCR During your visit today, we recorded the following information about you: Rimma Sterling PA-C 09/24/2022 9:53 AM Signed History of Present Illness Ms. AMY ALFARO is a 41 year old year old female presenting for: referred by SELF And is a patient of DO Abel Card DO [address] [id number] Communication will be via the electronic record [...] (FLONASE) 50 mcg/actuation nasal spray Use 1 Mantachie in each nostril as needed. multivitamin (DAILY [...] ALLERGIES 1 (more content not included)... Normal [facility] CBC AUTO DIFFon 07-29-2022 BASO # 0.0 103/ul Normal 0.0-0.1 [facility] Comment on above: Performed By: #### C BC #### [facility] [address] [place] [address] Dr. Jani Haywood Basophils/100 WBC (Bld) 0.6 % Normal 0.2-2.0 [facility] Comment on above: Performed By: #### C BC #### [facility] [address] [place] [address] Dr. Jani Haywood EO # 0.1 103/ul Normal 0.0-0.7 [facility] Comment on above: Performed By: #### C BC #### [facility] [address] [place] [address] Dr. Jani Haywood Eosinophils/100 WBC (Bld) 2.5 % Normal 0.9-7.0 [facility] Comment on above: Performed By: #### C BC #### [facility] [address] [place] [address] Dr. Jani Haywood Erythrocyte distribution width (RBC) [Ratio] 13.7 % Normal 11.0-15.0 [facility] Comment on above: Performed By: #### C BC #### [facility] [address] [place] [address] Dr. Jani Haywood Hematocrit (Bld) [Volume fraction] 40.3 % Normal 36.0-48.0 [facility] Comment on above: Performed By: #### C BC #### [facility] [address] [place] [address] Dr. Jani Haywood Hemoglobin (Bld) [Mass/Vol] 12.7 g/dL Normal 12.0-16.0 [facility] Comment on above: Performed By: #### C BC #### [facility] [address] [place] [address] Dr. Jani Haywood IG # 0.01 10e3/ul Normal 0.00-0.03 [facility] Comment on above: Performed By: #### C BC #### [facility] [address] [place] [address] Dr. Jani Haywood IG % 0.2 % Normal 0.0-0.5 [facility] Comment on above: Performed By: #### C BC #### [facility] [address] [place] [address] Dr. Jani Haywood LYMPH # 1.8 103/ul Normal 1.2-3.8 [facility] Comment on above: Performed By: #### C BC #### [facility] [address] [place] [address] Dr. Jani Haywood Lymphocytes/100 WBC (Bld) 35.2 % Normal 20.5-60.0 [facility] Comment on above: Performed By: #### C BC #### [facility] [address] [place] [address] Dr. Jani Haywood MANUAL DIFF REQ NO Normal [facility] Comment on above: Performed By: #### C BC #### [facility] [address] [place] [address] Dr. Jani Haywood MCH (RBC) [Entitic mass] 30.5 pg Normal 26.7-34.0 [facility] Comment on above: Performed By: #### C BC #### [facility] [address] [place] [address] Dr. Jani Haywood MCHC (RBC) [Mass/Vol] 31.5 g/dL Normal 29.9-35.2 [facility] Comment on above: Performed By: #### C BC #### [facility] [address] [place] [address] Dr. Jani Haywood MCV (RBC) [Entitic vol] 96.9 fL Normal 81.0-99.0 [facility] Comment on above: Performed By: #### C BC #### [facility] [address] [place] [address] Dr. Jani Haywood MONO # 0.4 103/ul Normal 0.3-0.8 [facility] Comment on above: Performed By: #### C BC #### [facility] [address] [place] [address] Dr. Jani Haywood Monocytes/100 WBC (Bld) 8.1 % Normal 1.7-12.0 [facility] Comment on above: Performed By: #### C BC #### [facility] [address] [place] [address] Dr. Jani Haywood NEUT # 2.8 103/ul Normal 1.4-6.5 [facility] Comment on above: Performed By: #### C BC #### [facility] [address] [place] [address] Dr. Jani Haywood Neutrophils/100 WBC (Bld) 53.4 % Normal 43.0-75.0 [facility] Comment on above: Performed By: #### C BC #### [facility] [address] [place] [address] Dr. Jani Haywood Platelet mean volume (Bld) [Entitic vol] 10.0 fL Normal 9.5-13.5 [facility] Comment on above: Performed By: #### C BC #### [facility] [address] [place] [address] Dr. Jani Haywood PLT 271 103/ul Normal 150-450 [facility] Comment on above: Performed By: #### C BC #### [facility] [address] [place] [address] Dr. Jani Haywood RBC 4.16 106/ul Critically low 4.20-5.40 [facility] Comment on above: Performed By: #### C BC #### [facility] [address] [place] [address] Dr. Jani Haywood WBC 5.2 103/ul Normal 4.0-11.0 [facility] Comment on above: Performed By: #### C BC #### [facility] [address] [place] [address] Dr. Jani Haywood IRONon 07-29-2022 Iron [Mass/Vol] 64.0 ug/dL Normal 50.0-170.0 [facility] Comment on above: Performed By: #### A 1C #### [facility] [address] [place] [address] Dr. Jani Haywood PROF 14(COMP METB)on 023 Albumin [Mass/Vol] 3.5 g/dL Normal 3.4-5.0 [facility] Comment on above: Performed By: #### C MP #### [facility] [address] [place] [address] Dr. Jani Haywood Albumin/Globulin [Mass ratio] 0.9 {ratio} Normal [facility] Comment on above: Performed By: #### C MP #### [facility] [address] [address] [address] Jani Haywood ALP [Catalytic activity/Vol] 73 U/L Normal 46-116 [facility] Comment on above: Performed By: #### C MP #### [facility] [address] [address] [address] Jani Haywood ALT [Catalytic activity/Vol] 12 U/L Critically low 14-59 [facility] Comment on above: Performed By: #### C MP #### [facility] [address] [address] [address] Jani Haywood Anion gap [Moles/Vol] 11.0 mmol/L Normal [facility] Comment on above: Performed By: #### C MP #### [facility] [address] [address] [address] Jani Haywood AST [Catalytic activity/Vol] 13 U/L Critically low 15-37 [facility] Comment on above: Performed By: #### C MP #### [facility] [address] [address] [address] Jani Haywood Bilirubin [Mass/Vol] 0.5 mg/dL Normal 0.2-1.0 [facility] Comment on above: Performed By: #### C MP #### [facility] [address] [address] [address] Jani Haywood Calcium [Mass/Vol] 8.6 mg/dL Normal 8.5-10.1 [facility] Comment on above: Performed By: #### C MP #### [facility] [address] [address] [address] Jani Haywood Chloride [Moles/Vol] 105 mmol/L Normal 98-107 [facility] Comment on above: Performed By: #### C MP #### [facility] [address] [address] [address] Jani Haywood CO2 [Moles/Vol] 28.8 mmol/L Normal 21.0-32.0 [facility] Comment on above: Performed By: #### C MP #### [facility] [address] [address] [address] Jani Haywood Creatinine [Mass/Vol] 0.87 mg/dL Normal 0.55-1.02 [facility] Comment on above: Performed By: #### C MP #### [facility] [address] [address] [address] Jani Haywood EGFR-AF BELARUSIAN >60 Normal >=60 [facility] Comment on above: Performed By: #### C MP #### [facility] [address] [address] [address] Jani Haywood EGFR-NON AF BELARUSIAN >60 Normal >=60 [facility] Comment on above: Performed By: #### C MP #### [facility] [address] [address] [address] Jani Haywood Globulin (S) [Mass/Vol] 3.7 g/dL Normal [facility] Comment on above: Performed By: #### C MP #### [facility] [address] [address] [address] Jani Haywood Glucose [Mass/Vol] 95 mg/dL Normal 74-106 [facility] Comment on above: Performed By: #### C MP #### [facility] [address] [place] [address] Dr. Jani Haywood Potassium [Moles/Vol] 3.8 mmol/L Normal 3.5-5.1 [facility] Comment on above: Performed By: #### C MP #### [facility] [address] [address] [address] Jani Haywood Protein [Mass/Vol] 7.2 g/dL Normal 6.4-8.2 [facility] Comment on above: Performed By: #### C MP #### [facility] [address] [place] [address] Dr. Jani Haywood Sodium [Moles/Vol] 141 mmol/L Normal 136-145 [facility] Comment on above: Performed By: #### C MP #### [facility] [address] [address] [address] Jani Haywood Urea nitrogen [Mass/Vol] 12.0 mg/dL Normal 7.0-18.0 [facility] Comment on above: Performed By: #### C MP #### [facility] [address] [place] [address] Dr. Jani Haywood Urea nitrogen/Creatinine [Mass ratio] 13.8 mg/mg Normal [facility] Comment on above: Performed By: #### C MP #### [facility] [address] [address] [address] Jani Haywood [facility] SARS-CoV-2 (COVID-19) RNA CAROLE+probe Ql (Unsp spec) Not detected Normal NOT DETECTED [facility] Comment on above: Result Comment: This test is not yet approved or cleared by the [place] FDA. When there are no FDA-approved or cleared tests available, and other criteria are met, FDA can make tests available under an emergency access mechanism called an Emergency Use Authorization (EUA). The EUA for this test is supported by the Caustic Room Operator of Health and Human Service's (HHS's) declaration [...] SARS-CoV-2. Performed By: #### C VDTB #### [facility] [address] [place] [address] Dr. Jani Haywood US PREG <14 WKSon [...] was notified of these findings by the steeping press tender at time of imaging. Electronically authenticated by: ALEXI BRANCH Date: 2022-07-16 13:36 Normal [facility] HEP B SURFACE ANTIGEN SCREEN on 07-03-2022 HBsAg Screen Negative Normal Negative [facility] Comment on above: Performed By: #### A 1C #### [facility] [address] [place] [address] Dr. Jani Haywood HEPATITIS C VIRUS AB W/ REFL EX QUANTon 07-03-2022 HCV AB <0.1 Normal 0.0-0.9 [facility] Comment on above: Performed By: #### H CVPCRR #### [facility] [address] [place] [address] Dr. Jani Haywood Interpretation: Comment Normal [facility] Comment on above: Result Comment: Nega tive Not infected with HCV, unless recent infection is suspected or other evidence exists to indicate HCV infection. Performed By: #### H CVPCRR #### [facility] [address] [place] [address] Dr. Jani Haywood HIV 1 AND 2 WITH REFLEXon HIV Screen 4th Generation wRfx Non-Reactive Normal Non Reactive [facility] Comment on above: Result Comment: HIV Negative HIV-1/HIV-2 antibodies and HIV-1 p24 antigen were NOT detected. There is no laboratory evidence of HIV infection. Performed By: #### H IV12 #### [facility] [address] [place] [address] Dr. Jani Haywood RPR QUANTon 07-03-2022 Rapid Plasma Reagin, Quant Non-Reactive Normal NonRea<1:1 [facility] Comment on above: Result Comment: Plea se Note: This test does not meet current guidelines for screening and diagnosis of syphilis. This test is intended for following treatment response in patients being treated for syphilis infection. To screen for syphilis infection, a reflex cascade that includes both RPR and a treponema-specific assay should be utilized, such as Treponema pallidum (Syphilis) Screening Obion (575100) or Rapid Plasma Reagin (RPR) Test With Reflex to Quantitative RPR and Confirmatory Treponema pallidum Antibodies (484061). Performed By: #### R PRQ #### [facility] [address] [place] [address] Dr. Jani Haywood RUBELLA AB IGGon 07-03-2022 Rubella Antibodies, IgG 2.92 index Normal Immune >0.99 [facility] Comment on above: Result Comment: Non- immune <0.90 Equivocal 0.90 - 0.99 Immune >0.99 Performed By: #### A 1C #### [facility] [address] [place] [address] Dr. Jani Haywood CBC AUTO DIFFon 07-02-2022 BASO # 0.1 103/ul Normal 0.0-0.1 [facility] Comment on above: Performed By: #### C BC #### [facility] [address] [place] [address] Dr. Jani Haywood Basophils/100 WBC (Bld) 0.7 % Normal 0.2-2.0 [facility] Comment on above: Performed By: #### C BC #### [facility] [address] [place] [address] Dr. Jani Haywood EO # 0.1 103/ul Normal 0.0-0.7 [facility] Comment on above: Performed By: #### C BC #### [facility] [address] [place] [address] Dr. Jani Haywood Eosinophils/100 WBC (Bld) 1.2 % Normal 0.9-7.0 [facility] Comment on above: Performed By: #### C BC #### [facility] [address] [place] [address] Dr. Jani Haywood Erythrocyte distribution width (RBC) [Ratio] 13.7 % Normal 11.0-15.0 [facility] Comment on above: Performed By: #### C BC #### [facility] [address] [place] [address] Dr. Jani Haywood Hematocrit (Bld) [Volume fraction] 37.9 % Normal 36.0-48.0 [facility] Comment on above: Performed By: #### C BC #### [facility] [address] [place] [address] Dr. Jani Haywood Hemoglobin (Bld) [Mass/Vol] 12.6 g/dL Normal 12.0-16.0 [facility] Comment on above: Performed By: #### C BC #### [facility] [address] [place] [address] Dr. Jani Haywood IG # 0.02 10e3/ul Normal 0.00-0.03 [facility] Comment on above: Performed By: #### C BC #### [facility] [address] [place] [address] Dr. Jani Haywood IG % 0.3 % Normal 0.0-0.5 [facility] Comment on above: Performed By: #### C BC #### [facility] [address] [place] [address] Dr. Jani Haywood LYMPH # 1.6 103/ul Normal 1.2-3.8 [facility] Comment on above: Performed By: #### C BC #### [facility] [address] [place] [address] Dr. Jani Haywood Lymphocytes/100 WBC (Bld) 21.5 % Normal 20.5-60.0 [facility] Comment on above: Performed By: #### C BC #### [facility] [address] [place] [address] Dr. Jani Haywood MANUAL DIFF REQ NO Normal [facility] Comment on above: Performed By: #### C BC #### [facility] [address] [place] [address] Dr. Jani Haywood MCH (RBC) [Entitic mass] 30.4 pg Normal 26.7-34.0 [facility] Comment on above: Performed By: #### C BC #### [facility] [address] [address] [address] Jani Haywood MCHC (RBC) [Mass/Vol] 33.2 g/dL Normal 29.9-35.2 [facility] Comment on above: Performed By: #### C BC #### [facility] [address] [place] [address] Dr. Jani Haywood MCV (RBC) [Entitic vol] 91.3 fL Normal 81.0-99.0 [facility] Comment on above: Performed By: #### C BC #### [facility] [address] [place] [address] Dr. Jani Haywood MONO # 0.5 103/ul Normal 0.3-0.8 [facility] Comment on above: Performed By: #### C BC #### [facility] [address] [place] [address] Dr. Jani Haywood Monocytes/100 WBC (Bld) 6.6 % Normal 1.7-12.0 [facility] Comment on above: Performed By: #### C BC #### [facility] [address] [place] [address] Dr. Jani Haywood NEUT # 5.1 103/ul Normal 1.4-6.5 [facility] Comment on above: Performed By: #### C BC #### [facility] [address] [place] [address] Dr. Jani Haywood Neutrophils/100 WBC (Bld) 69.7 % Normal 43.0-75.0 [facility] Comment on above: Performed By: #### C BC #### [facility] [address] [place] [address] Dr. Jani Haywood Platelet mean volume (Bld) [Entitic vol] 10.2 fL Normal 9.5-13.5 [facility] Comment on above: Performed By: #### C BC #### [facility] Laboratory [address] [place] [address] Dr. Jani Haywood PLT 281 103/ul Normal 150-450 [facility] Comment on above: Performed By: #### C BC #### [facility] [address] [address] [address] Jani Haywood RBC 4.15 106/ul Critically low 4.20-5.40 The [facility] Comment on above: Performed By: #### C BC #### [facility] [address] [address] [address] Jani Haywood WBC 7.3 103/ul Normal 4.0-11.0 [facility] Comment on above: Performed By: #### C BC #### [facility] [address] [place] [address] Dr. Jani Haywood GLYCOHEMOGLOBIN A1Con 2022 ADA RECOMMENDATION SEE BELOW Normal [facility] Comment on above: Result Comment: ADA RECOMMENDED LIMIT 4.0 - 6.0 ADA THERAPEUTIC TARGET < 7.0 ACTION SUGGESTED > 7.0 Performed By: #### A 1C #### [facility] [address] [place] [address] Dr. Jani Haywood Glucose [Mass/Vol] 103 mg/dL Normal The [facility] Comment on above: Performed By: #### A 1C #### [facility] [address] [place] [address] Dr. Jani Haywood HbA1c (Bld) [Mass fraction] 5.2 % Normal 4.5-6.2 [facility] Comment on above: Performed By: #### A 1C #### [facility] [address] [place] [address] Dr. Jani Haywood CRISTELA BOX TEST PT SEND OUTo n 07-02-2022 SENT TO REF LAB 07/02/2022 Normal [facility] Comment on above: Performed By: #### N BOX #### [facility] [address] [place] [address] Dr. Jani Haywood TYPE AND SCREENon 07-02-2022 TYPE AND SCREEN Negative Normal [facility] Comment on above: Performed By: #### A 1C #### [facility] [address] [place] [address] Dr. Jani Haywood US PREG TVon 06-18-2022 [...] by: RIMMA BATRES Date: 2022-06-18 16:09 Normal [facility] PAP ACOG PANEL 2: 30 to 65on 12-03-2021 . . Normal [facility] Comment on above: Result Comment: Perf ormed at: WB Performed By: #### [id number] #### [facility] [address] [place] [address] Dr. Jani Haywood Age Gdln ACOG Testing 30-65 Normal [facility] Comment on above: Performed By: #### [id number] #### [facility] [address] [place] [address] Dr. Jani Haywood DIAGNOSIS: Comment Normal [facility] Comment on above: Result Comment: NEGA TIVE FOR INTRAEPITHELIAL LESION OR MALIGNANCY. Performed at: WB Performed By: #### [id number] #### [facility] [address] [place] [address] Dr. Jani Haywood HPV Aptima Negative Normal Negative [facility] Comment on above: Result Comment: This nucleic acid amplification test detects fourteen high-risk HPV types (16,18,31,33,35,39,45,51,52,56,58,59,66,68) without differentiation. Performed at: =G Performed By: #### [id number] #### [facility] [address] [address] [address] Jani Haywood Methodology: Comment Normal [facility] Comment on above: Result Comment: This liquid based ThinPrep(R) pap test was screened with the use of an image guided system. Performed at: WB Performed By: #### [id number] #### [facility] [address] [place] [address] Dr. Jani Haywood Note: Comment [facility] Comment on above: Result Comment: The Pap smear is a screening test designed to aid in the detection of premalignant and malignant conditions of the uterine cervix. It is not a diagnostic procedure and should not be used as the sole means of detecting cervical cancer. Both false-positive and false-negative reports do occur. . Performed at: WB Performed By: #### [id number] #### [facility] [address] [place], [place] [id number] Dr. Jani Haywood Performed by: Comment Normal [facility] Comment on above: Result Comment: Nikki Schwab, Project Specialist (ASCP) Performed at: WB Performed By: #### [id number] #### [facility] [address] [place] [address] Jani Haywood Specimen adequacy: Comment Normal [facility] Comment on above: Result Comment: Sati sfactory for evaluation. Endocervical and/or squamous metaplastic cells (endocervical component) are present. Performed at: WB Performed By: #### [id number] #### [facility] [address] [place] [address] Jani Haywood Vital Signs Date Time Vital Sign Value Performing Clinician Facility 07-30-2023 09:32-0500 Body mass index (BMI) [Ratio] 25.88 kg/m2 Ivan Pollo DO Work Phone: [facility] 07-30-2023 09:32-0500 Body weight 66.28 kg Ivan Pollo DO Work Phone: [facility] 07-30-2023 09:32-0500 Diastolic blood pressure 60 mm[Hg] Ivan Pollo DO Work Phone: [facility] 07-30-2023 09:32-0500 Systolic blood pressure 100 mm[Hg] Ivan Pollo DO Work Phone: [facility] 07-23-2023 14:33-0500 Body mass index (BMI) [Ratio] 26.24 kg/m2 Terese REYES Work Phone: [facility] 07-23-2023 14:33-0500 Body weight 67.19 kg Terese REYES Work Phone: [facility] 07-23-2023 14:33-0500 Diastolic blood pressure 68 mm[Hg] Terese REYES Work Phone: [facility] 07-23-2023 14:33-0500 Systolic blood pressure 110 mm[Hg] Terese REYES Work Phone: [facility] 11-24-2021 14:10-0400 Body height 160.02 cm Megan Oconnor Other [employer] Other 11-24-2021 14:10-0400 Body mass index (BMI) [Ratio] 20.55 kg/m2 Megan Oconnor Other [employer] Other 11-24-2021 14:10-0400 Body temperature 96.9 [degF] Megan Oconnor Other [employer] Other 11-24-2021 14:10-0400 Body weight 52.62 kg Megan Oconnor Other [employer] Other 11-24-2021 14:10-0400 SaO2% (BldA) [Mass fraction] 97 % Megan Oconnor Other [employer] Other Encounters Encounter Date Encounter Type Care Provider Facility Start: 07-30-2023 End: 07-30-2023 ambulatory IVAN POLLO Not Available Start: 07-30-2023 End: 07-30-2023 flow sheet Ivan Abad DO Work Phone: [facility] Comment on above: Third trimester preg luan; Small for gestational age (SGA) Start: 07-23-2023 End: 07-23-2023 ambulatory TERESE AGUILA Not Available Start: 07-23-2023 End: 07-23-2023 flow sheet Terese REYES Work Phone: [facility] Comment on above: Low blood pressure r eading; Dizziness; Feeling faint; Third trimester Start: 07-21-2023 End: 07-21-2023 ambulatory YULISSA JAIME Facility:[facility] Start: 07-15-2023 End: 07-15-2023 ambulatory TERESE AGUILA Not Available Start: 07-01-2023 End: 07-01-2023 ambulatory IVAN POLLO Not Available Start: 06-18-2023 End: 06-18-2023 ambulatory TERESE AGUILA Not Available Start: 05-20-2023 End: 05-20-2023 ambulatory IVAN POLLO Not Available Start: 10-10-2022 Telephone encounter [facility] 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 Start: 10-09-2022 ambulatory Yulissa WOOD Work Phone: Audiology Start: 09-24-2022 End: 09-24-2022 ambulatory RIMMA STERLING Facility:[facility] Start: 09-24-2022 End: 09-24-2022 Patient encounter procedure Rimma Sterling PA-C Work Phone: Otolaryngology Comment on above: Cochlear implant in place (Primary Dx); Sensorineural hearing loss, asymmetrical; Sensorineural hearing loss, bilateral Start: 07-29-2022 End: 07-30-[address] ARIEL RAJAN Facility:[facility] Start: 07-18-2022 End: 07-18-[address] ROSA CARTER Facility:[facility] Start: 07-17-2022 Encounter for preprocedural laboratory examination DR ROSA CARTER [facility] Start: 07-16-2022 End: 07-17-[address] ROSA CARTER Facility:[facility] Start: 07-16-2022 End: 07-17-2022 Encounter for preprocedural laboratory examination DR ROSA CARTER Facility:[facility] Start: 07-02-2022 End: 07-03-[address] ROSA CARTER Facility:[facility] Start: 06-18-2022 End: 06-19-[address] ROSA CARTER Facility:[facility] Start: 11-27-2021 End: 11-27-[address] ROSA CARTER Facility:[facility] Start: 11-24-2021 End: 11-24-2021 ambulatory Megan Oconnor Other [facility] Other Start: 11-24-2021 Office outpatient vi sit [...] (3 - PPSV23 if available, else PCV20) [facility] Start: 04-22-2028 Screening for malign ant neoplasm of cervix [facility] Start: 04-26-2024 End: 04-26-2024 Patient encounter procedure 04/26/2024 9:00 AM EST Office Visit [facility] [address] [place] [address] Ivan Abad, DO [address] [place] [address] [facility] Start: 08-13-2023 End: 08-13-2023 Patient encounter procedure 08/13/2023 11:20 AM EST Routine [facility] [address] [place] [id number] Ivan Abad, DO [address], [place] [id number] [facility] Start: 07-30-2023 End: 07-30-2024 US biophysical profile w non stress test US biophysical profile w non stress test Imaging Routine Small for gestational age (SGA) Expected: 07/30/2023 (Approximate), Expires: 07/30/2024 [facility] Work Phone: Comment on above: Expected: 07/30/2023 (Approximate), Expires: 07/30/2024 Start: 07-30-2023 End: 07-30-2023 Patient encounter procedure 07/30/2023 9:20 AM EST Routine [facility] [address] [place] [address] Ivan Abad, [address] [facility] [address] [place] [address] [facility] Start: 07-23-2023 End: 07-23-2023 Professional / ancillary services management 07/23/2023 3:00 PM EST Ancillary Procedure [facility] [address] [place] [id number] [facility] Start: 02-20-2023 Influenza vaccination [facility] Start: 06-22-2022 DEPRESSION ASSESSMENT DEPRESSION ASS ESSMENT [facility] Start: 10-20-2021 COVID-19 VACCINE (3 - Booster for Pfizer series) COVID-19 VACCINE (3 - Booster for Pfizer series) [facility] Start: 2019 Mammography MAMMOGRAM [facility] Start: 2019 Screening for malign ant neoplasm of breast Mammogram [facility] Start: 11-17-2009 HPV TESTING HPV TESTING [facility] Start: 11-17-2000 PAP TESTING PAP TESTING [facility] Start: 11-17-1998 Urine microalbumin profile DTAP,TDAP,TD (1 - Tdap) [facility] Start: 11-17-1997 HEPATITIS C SCREENING HEPATITIS C SC REENING [facility] Start: 11-17-1997 HIV SCREENING HIV SCREENING [facility] Start: 1980 HEPATITIS B (1 of 3 - 3-dose series) HEPATITIS B (1 of 3 - 3-dose series) [facility] Immunizations Immunization Date Immunization Notes Care Provider Fa cili 03-22-2020 influenza virus vacc ine, unspecified formulation Terese REYES Work Phone: [facility] 08-13-2017 pneumococcal polysaccharide vaccine, 23 valent Rimma Sterling PA-C Work Phone: [facility] 08-10-2014 pneumococcal conjuga te vaccine, 13 valent Rimma Sterling PA-C Work Phone: [facility] Payers Date Payer Category Payer Unknown [id number] 2022 Unknown [id number] 1980 Unknown [id number] 2.16.84 [id number] 1979 Unknown [id number] 2.16.84 [id number] 1979 Unknown [id number] 2.16.84 [id number] 1979 Unknown [id number] 2.16.84 [id number] 1979 Unknown [id number] 2.16.84 [id number] 1979 Unknown [id number] 2.16.84 [id number] 1979 Unknown [id number] 2.16.84 0.1.807656.3.579.2.593 1979 Unknown [id number] 2.16.84 0.1.841404.3.579.2.1259 1979 Unknown [id number] 2.16.84 0.1.956311.3.579.2.1259 1979 Unknown [id number] 2.16.84 0.1.584291.3.579.2.1259 1979 Unknown [id number] 2.16.84 [id number] 1979 Unknown [id number] 2.16.840 .1.606801.3.579.2.9 1979 Unknown [id number] 2.16.840 .[id number] 1959 [facility] [id number] Unknown [id number] 2.16.84 [id number] Social History Date Type Detail Facility Start: 03-16-2023 Sex Assigned At [employer] Other Start: 09-24-2022 End: 03-16-2023 Tobacco smoking status NHIS Never smoked tobacco [facility] Start: 09-24-2022 End: 03-16-2023 Tobacco use and exposure Smokeless tobacco non-user [facility] Start: 09-24-2022 Alcohol intake Current non-drinker of alcohol (finding) [facility] Start: 1980 Sex Assigned At Female [facility] Start: 07-23-2023 End: 07-30-2023 Alcohol intake Ex-drinker (finding) [facility] Start: 03-16-2023 History of Social function [facility] Start: 04-22-2023 Alcohol Comment occasional alcohol use, Caffeine intake: none [facility] Start: 12-25-2022 [facility] Start: 01-21-2023 Gender identity Identifies as female gender (finding) [facility] Start: 01-21-2023 Sexual orientation Heterosexual (finding) [facility] Medical Equipment Procedure Code Equipment Code Equipment Original Text Equipment Identifier Dates Ilw-Lv-R-Kind Implant - [id number] Start: 09-02-2017 Comment on above: Description: [...] Ivan Abad DO documented in this encounter [facility] 07-23-2023 History of Presen t illness [...] of: ERIC Smallwood documented in this encounter [facility] 07-21-2023 Note HNO ID: [id number] Author: YULISSA JAIME AUD Service: ? Author Type: Basketball Assembler Type: Progress Notes Filed: 07/21/2023 08:47 Note Text: [facility], [facility] Services COCHLEAR IMPLANT ADULT PROGRAMMING Name: Amy ALFARO CC#: [id number] Date of Service: July 21, 2023 Date of : 1980 Age: [age] year old COCHLEAR IMPLANT INFORMATION (see below for all device details) Updated: July 21, 2023 Right ear: Phonak Audeo RITE Hearing Aid that was fit at an outside facility (November 2021) and is being managed by that facility. Left ear: External Processor: Cochlear [employer] [id number] (Nucleus 8; upgraded around January 2023) Processor SN: [id number] Processor ([id number]) SN: [id number] Magnet strength: 2 Internal Device: Cochlear [id number] Profile with Slim Modiolar Electrode Array Internal Device SN: [id number] Inactive electrodes: None Surgery Date: 09/02/2017 Initial [...] 6; Sensitivity: 12) before programming. See the WatchwithForm Audiogram for obtained thresholds. Speech perception testing was completed at 60 protection specialist using recorded stimuli in the sound field at 0 degrees azimuth. NOTE: The contralateral ear was not plugged and muffed during testing. The following testing and results were obtained: Pdpglnzvs-Lasaein-Lvnogjubo Words (CNC) Test Condition List # Phonemes [...] hours. * Revie (more content not included)... [facility] 10-10-2022 Miscellaneous Notes Atm Servicer: Katerina Mina Patient: Hasmukh Alfaro 1980 Clinic: [facility] Basketball Assembler: Dr. Yulissa Jaime Appointment Length: 45 Minutes What are you looking to accomplish?: I d like to learn more about the Nucleus 8 and the process of upgrading Recipient's Stated Reason for Upgrading Clinic Request - Basketball Assembler recommended it [employer] - Processor more [...] steps are Acquisition Methods Recipient will receive [id number]-db-[id number] cost estimate once order placed Next Steps If recipient decides to move forward with pursuing a Nucleus 8 upgrade and provides us with the necessary order information, we will start an order on their behalf. You will hear from Cochle[employer] s Senior Asset Manager team, via email/DocuSign to gain your approval or regarding an LMN to allow this patient to move forward in the process. Following completion of the upgrade process, I will invite the recipient to schedule time for a complimentary onboarding with our [employer] team so they can begin to maximize the use of their new Cochlear equipment. documented in this encounter [facility] 10-09-2022 Note HNO ID: [id number] Author: ISRAEL Champion Service: ? Author Type: Basketball Assembler Type: Progress Notes Filed: 10/09/2022 12:58 PM [...] any questions. Upgrade Consultation Clinic Patient Report Atm Servicer: Katerina Mina Patient: Hasmukh Alfaro 1980 Clinic: [facility] Basketball Assembler: Dr. Yulissa Jaime Appointment Length: 45 Minutes What are you looking to accomplish?: I?d like to learn more about the Nucleus 8 and the process of upgrading Recipient's Stated Reason for Upgrading ? Clinic Request - Basketball Assembler recommended it ? [employer] - Processor [...] are Acquisition Methods ? Recipient will receive Ssa-ke-Djhbyx cost estimate once order placed Next Steps ? If recipient decides to move forward with pursuing a Nucleus 8 upgrade and provides us with the necessary order information, we will start an order on their behalf. You will hear from Co[employer]?s Senior Asset Manager team, via email/DocuSign to gain your approval or regarding an LMN to allow this patient to move forward in the process. Following completion of the upgrade process, I will invite the recipient to schedule time for a complimentary onboarding with our [employer] team so they can begin to maximize the use of their new Cochlear equipment. Warm Regards, Eloisa Vazquez, [facility]/A Clinical Basketball Assembler [facility] 10-09-2022 History of Presen t illness [...] any questions. Upgrade Consultation Clinic Patient Report Atm Servicer: Katerina Mina Patient: Hasmukh Alfaro 1980 Clinic: [facility] Basketball Assembler: Dr. Yulissa Jaime Appointment Length: 45 Minutes What are you looking to accomplish?: I d like to learn more about the Nucleus 8 and the process of upgrading Recipient's Stated Reason for Upgrading Clinic Request - Basketball Assembler recommended it [employer] - Processor more [...] steps are Acquisition Methods Recipient will receive Hge-zh-Wkvrme cost estimate once order placed Next Steps If recipient decides to move forward with pursuing a Nucleus 8 upgrade and provides us with the necessary order information, we will start an order on their behalf. You will hear from Cochlear s Senior Asset Manager team, via email/DocuSign to gain your approval or regarding an LMN to allow this patient to move forward in the process. Following completion of the upgrade process, I will invite the recipient to schedule time for a complimentary onboarding with our [employer] team so they can begin to maximize the use of their new Cochlear equipment. Warm Regards, Eloisa Vazquez, GIOVANNY/A Clinical Basketball Assembler documented in this encounter [facility] 09-24-2022 Note HNO ID: [id number] Author: Rimma Sterling PA-C Service: ? Author Type: Physician Environmental Engineering Assistant Type: Progress Notes Filed: 09/24/2022 9:53 AM Note Text: History of Present Illness Ms. AMY ALFARO is a 41 year old year old female presenting for: referred by SELF And is a patient of DO Abel Card DO [address] [place] [address] Communication will be via the electronic record [...] (FLONASE) 50 mcg/actuation nasal spray Use 1 [place] in each nostril as needed. multivitamin (DAILY [...] Medical Decision Making Level: 2 - Straightforward [facility] 09-24-2022 Instructions Rimma Sterling PA-C - 09/24/2022 9:[address] Audra Umanzor use his name on paperwork documented in this encounter [facility] 09-24-2022 History of Presen t illness Narrative History of Present Illness Ms. AMY ALFARO is a 41 year old year old female presenting for: referred by SELF And is a patient of DO Abel Crad DO [address] [place] [address] Communication will be via the electronic record [...] (FLONASE) 50 mcg/actuation nasal spray Use 1 [place] in each nostril as needed. multivitamin (DAILY [...] 2 - Straightforward documented in this encounter [facility] 07-18-2022 Note EXAMINATION: US PELV IS HISTORY: Surgical procedure COMPARISON: Ultrasound less than 14 weeks 07/16/2022 TECHNIQUE: Transabdominal and transvaginal sonographic examination. FINDINGS: Final images show an empty endometrial cavity. IMPRESSION: 1. No appreciable products of conception within endometrial cavity following dilation and curettage. Electronically authenticated by: ALEXI BRANCH Date: 2022-07-18 08:21 [facility] 11-24-2021 Evaluation note Encounter Date Diagnosis [...] Fungal rash of trunk (ICD-10 - B36.9) [employer] Other Evaluation note* Diagnosis Cochlear implant in place- Primary Other postprocedural status Sensorineural hearing loss, asymmetrical Sensorineural hearing loss, bilateral [facility] Low blood pressure reading Nonspecific low blood pressure reading Dizziness Dizziness and giddiness Feeling faint Third trimester state, incidental [facility] Diagnosis Third trimester state, incidental Small for gestational age (SGA) [facility] N[facility]ative - Reported* Type Description Date Medical History bilateral hearing loss Surgical History cochlear implant Surgical History D&C [employer] Other Summary Purpose Family History No Family History Records FoundNo Family History Records FoundNo Family History Records Found Advance Directives No Advanced Directives Records FoundNo Advanced Directives Records FoundNo Advanced Directives Records Found Additional Source Comments REASON FOR VISIT (unrecogniz ed section and content) Reason Comments Hearing Loss New. Self referral. CI LT side. Last audio 03/18/22. Denies otalgia and otorrhea. Reason Comments Rug Dry Room Attendant - Other Reason Comments Dizziness Hypotension Reason Comments Routine Visit INFORMATION SOURCE (unrecogn ized section and content) DATE CREATED AUTHOR 07/30/2022 [facility] DATE CREATED AUTHOR AUTHOR'S ORGANIZ ATION 07/22/2023 [facility] DATE CREATED AUTHOR AUTHOR'S ORGANIZ ATION 07/31/[address] [facility] dical Specialists EPIC Source Comments (unrecognize d section and content) In the event this informatio n is protected by the Federal Confidentiality of Alcohol and Drug Abuse Patient Records regulations: The Federal rules restrict any use of the information to criminally investigate or prosecute any alcohol or drug abuse patient.[facility] the event this information is protected by the Federal Confidentiality of Alcohol and Drug Abuse Patient Records regulations: The Federal rules restrict any use of the information to criminally investigate or prosecute any alcohol or drug abuse patient.[facility] the event this information is protected by the Federal Confidentiality of Alcohol and Drug Abuse Patient Records regulations: The Federal rules restrict any use of the information to criminally investigate or prosecute any alcohol or drug abuse patient.[facility] Care Teams (unrecognized sec tion and content) Chief Concierge Relationship Specialty Start Date End Date JorgeAbel petit Javon PCP - General Family Medicine 03/15/14 Chief Concierge Relationship Specialty Start Date End Date Abel Sun PCP - General Family Medicine 03/15/14 Chief Concierge Relationship Specialty Start Date End Date Abel Sun PCP - General Family Medicine 03/15/14 Chief Concierge Relationship Specialty Start Date End Date Ariel Rajan MD [address] [place] [phone] PCP - General 02/16/23 Chief Concierge Relationship Specialty Start Date End Date Ariel Rajan MD [address] [facility] [facility] [place] [address] PCP - General 02/16/23 FOR RECORDS PERTAINING [...] BE BASED ON THE PRIMARY CLINICAL RECORDS. [facility] [employer] [facility]. provides no warranty or guarantee of the accuracy or completeness of information in this document.
[2023-08-07 08:00] VITALS: BP 112/80; PULSE 83
== END 2023-08-07 08:25 | disposition home or self-care (01) ==
LOC: FBCO 07:31 → FBC 07:57
PROVIDERS: PCP Family Medicine; Visit Provider Obstetrics & Gynecology
DX: O26.843 Uterine size-date discrepancy, third trimester (principal)
CPT/HCPCS: 59025

== ENCOUNTER 2023-08-11 07:55 | Outpatient (OUT) | payer OTHER, SELFPAY ==
--- OUTSIDE RECORDS SUMMARY | 2023-08-11 08:04 | XMS_ITS | CCD ---
Author Name Unknown Address [address] [place] [address] Organization [facility] Team Providers Care Wharf Builder Name Role Phone Megan Oconnor Unavailable ANDRES, DR LEE Admitting Unavailable KARASIK, DR LEE Attending Unavailable REQUEST, NONE LISTED Primary Care Unavaila ble KARASIK, DR LEE Consulting Unavailable ZIEBER, DR ALEXI Johnson Consulting Unavailable HOY, DR GEORGE Admitting Unavailable HOY, DR GEOREG Attending Unavailable REQUEST, NONE LISTED Primary Care [...] Consulting Unavailable Abel Sun Primary Care Provider [phone] YULISSA JAIME Attending Unavailable ABEL SUN Primary Care Unavailab RIMMA Sutherland Attending Unavailable ABEL SUN Primary Care Unavailab Ariel Rich MD Primary Care Provider [phone] TERESE AGUILA Attending Unavailable IVAN ABAD Attending Unavailable TERESE AGUILA Attending Unavailable TERESE AGUILA Attending Unavailable IVAN ABAD Attending Unavailable IVAN ABAD Attending Unavailable Allergies Allergy Classification Reported Allergen(s) Allergy Type Date of Onset Reaction(s) Facility (4 sources) Seasonal allergy; Translations: [SEASONAL ALLERGIES] Allergy to substance 4 Cough [facility] (4 sources) Octacosanol Drug Allergy 4 Cough [facility] (4 sources) Other Propensity to adverse reactions 3 Unknown [facility] Medications Current Medications Medication Drug Class(es) Dates Sig (Normalized) Sig (Original) [id number] actuat albuterol 0.09 mg/actuat metered dose [...] on above: Take 1 capsule by mo [facility] as needed. fluticasone propionate 0.05 mg/actuat metered dose nasal spray (3 sources) Corticosteroid fluticasone (FLONASE) 50 mcg/actuation nasal spray Indications: Bilateral sensorineural hearing loss , Autoimmune disorder of inner ear Use 1 Andrews in each nostril as needed. 0 Active Comment on above: Use 1 Andrews in each nostril as needed. LOW-DOSE ASPIRIN PO (2 sources) Start: 04-02-2023 End: 07-23-2023 LOW-DOSE ASPIRIN PO multivitamin (DAILY MULTIPLE) tablet (3 sources) take 1 tablet by mouth once daily multivitamin (DAILY MULTIPLE) tablet Take 1 tablet by mouth once daily. 0 Active Comment on above: Take 1 tablet by [facility] once daily. predniSONE 10 mg oral tablet [...] low weight; and growth retardation (2 sources) Vjrrr-duc-oziai baby; Translations: [ small for gestational age, unspecified weight] 07-30-2023 [...] UA Negative Negative - 4(70) +++ mg/dL [facility] Blood, UA Positive Negative - 50 Bobby/mcL [facility] Comment on above: trace-intact Clarity, UA Clear [facility] re Color, UA Yellow Merged with [facility] e Glucose, UA Negative Negative - 1999(110) ++++ mg/dL [facility] Interpretation and review of laboratory results Abnormal [facility] Ketones, UA Negative Negative - 160(16) ++++ mg/dL [facility] Leukocytes, UA Positive Negative - 500+++ Suzette/mcL [facility] Comment on above: small Nitrite, UA Negative Negative - Positive [facility] pH, UA 6.0 5 - 9 [facility], UA Negative Negative - 1999(20) ++++ mg/dL [facility] Spec Grav, UA 1.010 1 - 1.03 [facility] Urobilinogen, UA 0.2 0.2 - 12 mg/dL [facility] Urinalysis macro (dipstick) panel (U)on 07-23-2023 Bilirubin, UA Negative Negative - 4(70) +++ mg/dL [facility] Blood, UA Negative Negative - 50 Bobby/mcL [facility] Clarity, UA Clear [facility] Color, UA Yellow [facility] Glucose, UA Negative Negative - 1999(110) ++++ mg/dL [facility] Interpretation and review of laboratory results Abnormal [facility] Ketones, UA Negative Negative - 160(16) ++++ mg/dL [facility] Leukocytes, UA Positive Negative - 500+++ Suzette/mcL [facility] Comment on above: small Nitrite, UA Negative Negative - Positive [facility] pH, UA 7.0 5 - 9 [facility] Protein, UA Negative Negative - 1999(20) ++++ mg/dL [facility] Spec Grav, UA 1.015 1 - 1.03 [facility] Urobilinogen, UA 0.2 0.2 - 12 mg/dL [facility]23 CNOV Office Visit (MALISSAUCR ) AMY ALFARO ([id number]) 1980 F Date Time Provider Department 07/21/23 7:30 AM YULISSA JAIME During your visit today, we recorded the following information about you: Yulissa Jaime AUD 07/21/2023 8:47 AM Signed [facility] [place] [facility] COCHLEAR IMPLANT ADULT PROGRAMMING Name: Amy ALFARO CC#: [id number] Date of Service: July 21, 2023 Date of : 1980 Age: [age] year old COCHLEAR IMPLANT INFORMATION (see below for all device details) Updated: July 21, 2023 Right ear: Phonak Audeo RITE Hearing Aid that was fit at an outside facility (November 2021) and is being managed by that facility. Left ear: External Processor: Cochlear Snipds [id number] (Nucleus 8; upgraded around January 2023) Processor SN: [id number] Processor ([id number]) SN: [id number] Magnet strength: 2 Internal Device: Cochlear [id number] Profile with Slim Modiolar Electrode Array Internal Device SN: [id number] Inactive electrodes: None Surgery Date: 09/02/2017 Initial [...] 6; Sensitivity: 12) before programming. See the Riskalyze Audiogram for obtained thresholds. Speech perception testing was completed at 60 jordan worker using recorded stimuli in the sound field at 0 degrees azimuth. NOTE: The contralateral ear was not plugged and muffed during testing. The following testing and results were obtained: Gqpxmvmbn-Edzsabb-Dyz sonant Words (CNC) Test Condition List # [...] etc. Shoul (more content not included)... Normal [facility] Ada 10-10-2022 JEANN Telephone (HNQ) DOMINICAMY Shravan ([id number]) 1980 F Date Time Provider Department 10/10/22 LEO ATKINSON During your visit today, we recorded the following information about you: Leo Huitrononnell 10/10/2022 3:52 PM Signed Hair Clipper Power: Katerina Mina Patient: Hasmukh Alfaro 1980 Clinic: [facility] Wet End Supervisor: Dr. Yulissa Jaime Appointment Length: 45 Minutes What are you looking to accomplish?: I?d like to learn more about the Nucleus 8 and the process of upgrading Recipient's Stated Reason for Upgrading ? Clinic Request - Wet End Supervisor recommended it ? Useful Life - Processor [...] are Acquisition Methods ? Recipient will receive Orl-ha-Vxoymh cost estimate once order placed Next Steps ? If recipient decides to move forward with pursuing a Nucleus 8 upgrade and provides us with the necessary order information, we will start an order on their behalf. 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 - fluticasone (FLONASE) 50 mcg/actuation nasal spray Use 1 Andrews in each nostril as needed. - multivitamin [...] Encounter Status:Closed by LEO ATKINSON on 10/10/22 [facility] Emily 09-24-2022 CNOV Office Visit (OTOLCR ) AMY ALFARO ([id number]) 1980 F Date Time Provider Department 09/24/22 9:30 AM RIMMA STERLING OTVIDAL During your visit today, we recorded the following information about you: Rimma Sterling PA-C 09/24/2022 9:53 AM Signed History of Present Illness Ms. AMY ALFARO is a 41 year old year old female presenting for: referred by SELF And is a patient of DO Abel Card DO [address] [place] [address] Communication will be via the electronic record [...] (FLONASE) 50 mcg/actuation nasal spray Use 1 Andrews in each nostril as needed. multivitamin (DAILY [...] ALLERGIES 1 (more content not included)... Normal [facility] CBC AUTO DIFFon 07-29-2022 BASO # 0.0 103/ul Normal 0.0-0.1 [facility] Comment on above: Performed By: #### C BC #### [facility] [address] [place] [address] Dr. Jani Hayowod Basophils/100 WBC (Bld) 0.6 % Normal 0.2-2.0 [facility] Comment on above: Performed By: #### C BC #### [facility] [address] [place] [address] Dr. Jani Haywood EO # 0.1 103/ul Normal 0.0-0.7 [facility] Comment on above: Performed By: #### C BC #### [facility] [address] [place] [address] Dr. Jani Haywood Eosinophils/100 WBC (Bld) 2.5 % Normal 0.9-7.0 [facility] Comment on above: Performed By: #### C BC #### [facility] [address] [place] [address] Dr. Jani Haywood Erythrocyte distribution width (RBC) [Ratio] 13.7 % Normal 11.0-15.0 [facility] Comment on above: Performed By: #### C BC #### [facility] [address] [place] [address] Dr. Jani Haywood Hematocrit (Bld) [Volume fraction] 40.3 % Normal 36.0-48.0 [facility] Comment on above: Performed By: #### C BC #### [facility] [address] [place] [address] Dr. Jani Haywood Hemoglobin (Bld) [Mass/Vol] 12.7 g/dL Normal 12.0-16.0 [facility] Comment on above: Performed By: #### C BC #### [facility] [address] [place] [address] Dr. Jani Haywood IG # 0.01 10e3/ul Normal 0.00-0.03 [facility] Comment on above: Performed By: #### C BC #### [facility] [address] [place] [address] Dr. Jani Haywood IG % 0.2 % Normal 0.0-0.5 [facility] Comment on above: Performed By: #### C BC #### [facility] [address] [place] [address] Dr. Jani Haywood LYMPH # 1.8 103/ul Normal 1.2-3.8 [facility] Comment on above: Performed By: #### C BC #### [facility] [address] [place] [address] Dr. Jani Haywood Lymphocytes/100 WBC (Bld) 35.2 % Normal 20.5-60.0 [facility] Comment on above: Performed By: #### C BC #### [facility] [address] [place] [address] Dr. Jani Haywood MANUAL DIFF REQ NO Normal [facility] Comment on above: Performed By: #### C BC #### [facility] [address] [place] [address] Dr. Jani Haywood MCH (RBC) [Entitic mass] 30.5 pg Normal 26.7-34.0 [facility] Comment on above: Performed By: #### C BC #### [facility] [address] [place] [address] Dr. Jani Haywood MCHC (RBC) [Mass/Vol] 31.5 g/dL Normal 29.9-35.2 [facility] Comment on above: Performed By: #### C BC #### [facility] [address] [place] [address] Dr. Jani Haywood MCV (RBC) [Entitic vol] 96.9 fL Normal 81.0-99.0 [facility] Comment on above: Performed By: #### C BC #### [facility] [address] [place] [address] Dr. Jani Haywood MONO # 0.4 103/ul Normal 0.3-0.8 [facility] Comment on above: Performed By: #### C BC #### [facility] [address] [place] [address] Dr. Jani Haywood Monocytes/100 WBC (Bld) 8.1 % Normal 1.7-12.0 [facility] Comment on above: Performed By: #### C BC #### [facility] [address] [place] [address] Dr. Jani Haywood NEUT # 2.8 103/ul Normal 1.4-6.5 [facility] Comment on above: Performed By: #### C BC #### [facility] [address] [address] [address] Jani Haywood Neutrophils/100 WBC (Bld) 53.4 % Normal 43.0-75.0 [facility] Comment on above: Performed By: #### C BC #### [facility] [address] [address] [address] Jani Haywood Platelet mean volume (Bld) [Entitic vol] 10.0 fL Normal 9.5-13.5 [facility] Comment on above: Performed By: #### C BC #### [facility] [address] [address] [address] Jani Haywood PLT 271 103/ul Normal 150-450 [facility] Comment on above: Performed By: #### C BC #### [facility] [address] [place] [address] Dr. Jani Haywood RBC 4.16 106/ul Critically low 4.20-5.40 [facility] Comment on above: Performed By: #### C BC #### [facility] [address] [place] [address] Dr. Jani Haywood WBC 5.2 103/ul Normal 4.0-11.0 [facility] Comment on above: Performed By: #### C BC #### [facility] [address] [place] [address] Dr. Jani Haywood IRONon 07-29-2022 Iron [Mass/Vol] 64.0 ug/dL Normal 50.0-170.0 [facility] Comment on above: Performed By: #### A 1C #### [facility] [address] [place] [address] Dr. Jani Haywood PROF 14(COMP METB)on 023 Albumin [Mass/Vol] 3.5 g/dL Normal 3.4-5.0 [facility] Comment on above: Performed By: #### C MP #### [facility] [address] [place] [address] Dr. Jani Haywood Albumin/Globulin [Mass ratio] 0.9 {ratio} Normal [facility] Comment on above: Performed By: #### C MP #### [facility] [address] [address] [address] Jani Haywood ALP [Catalytic activity/Vol] 73 U/L Normal 46-116 [facility] Comment on above: Performed By: #### C MP #### [facility] [address] [address] [address] Jani Haywood ALT [Catalytic activity/Vol] 12 U/L Critically low 14-59 [facility] Comment on above: Performed By: #### C MP #### [facility] [address] [address] [address] Jani Haywood Anion gap [Moles/Vol] 11.0 mmol/L Normal [facility] Comment on above: Performed By: #### C MP #### [facility] [address] [place] [address] Dr. Jani Haywood AST [Catalytic activity/Vol] 13 U/L Critically low 15-37 [facility] Comment on above: Performed By: #### C MP #### [facility] [address] [address] [address] Jani Haywood Bilirubin [Mass/Vol] 0.5 mg/dL Normal 0.2-1.0 [facility] Comment on above: Performed By: #### C MP #### [facility] [address] [place] [address] Dr. Jani Haywood Calcium [Mass/Vol] 8.6 mg/dL Normal 8.5-10.1 [facility] Comment on above: Performed By: #### C MP #### [facility] [address] [address] [address] Jani Haywood Chloride [Moles/Vol] 105 mmol/L Normal 98-107 [facility] Comment on above: Performed By: #### C MP #### [facility] [address] [address] [address] Jani Haywood CO2 [Moles/Vol] 28.8 mmol/L Normal 21.0-32.0 [facility] Comment on above: Performed By: #### C MP #### [facility] [address] [address] [address] Jani Haywood Creatinine [Mass/Vol] 0.87 mg/dL Normal 0.55-1.02 [facility] Comment on above: Performed By: #### C MP #### [facility] [address] [address] [address] Jani Haywood EGFR-AF QATARI >60 Normal >=60 [facility] Comment on above: Performed By: #### C MP #### [facility] [address] [address] [address] Jani Haywood EGFR-NON AF QATARI >60 Normal >=60 [facility] Comment on above: Performed By: #### C MP #### [facility] [address] [place] [address] Dr. aJni Haywood Globulin (S) [Mass/Vol] 3.7 g/dL Normal [facility] Comment on above: Performed By: #### C MP #### [facility] [address] [place] [address] Dr. Jani Haywood Glucose [Mass/Vol] 95 mg/dL Normal 74-[address] [facility] Comment on above: Performed By: #### C MP #### [facility] [address] [address] [address] Jani Haywood Potassium [Moles/Vol] 3.8 mmol/L Normal 3.5-5.1 [facility] Comment on above: Performed By: #### C MP #### [facility] [address] [address] [address] Jani Haywood Protein [Mass/Vol] 7.2 g/dL Normal 6.4-8.[address] [facility] Comment on above: Performed By: #### C MP #### [facility] [address] [place] [address] Dr. Jani Haywood Sodium [Moles/Vol] 141 mmol/L Normal 136-[address] [facility] Comment on above: Performed By: #### C MP #### [facility] [address] [place] [address] Dr. Jani Haywood Urea nitrogen [Mass/Vol] 12.0 mg/dL Normal 7.0-18.0 [facility] Comment on above: Performed By: #### C MP #### [facility] [address] [place], [place] [address] Dr. Jani Haywood Urea nitrogen/Creatinine [Mass ratio] 13.8 mg/mg Normal [facility] Comment on above: Performed By: #### C MP #### [facility] [address] [place], [place] [address] Dr. Jani Haywood Covid-19 PCR ([facility])on 06-23 SARS-CoV-2 (COVID-19) RNA CAROLE+probe Ql (Unsp spec) Not detected Normal NOT DETECTED [facility] Comment on above: Result Comment: This test is not yet approved or cleared by the [place] FDA. When there are no FDA-approved or cleared tests available, and other criteria are met, FDA can make tests available under an emergency access mechanism called an Emergency Use Authorization (EUA). The EUA for this test is supported by the Admissions Nurse of Health and Human Service's (HHS's) declaration [...] SARS-CoV-2. Performed By: #### C VDTB #### [facility] [address] [place], [place] [address] Dr. Jani Haywood US PREG <14 WKSon [...] was notified of these findings by the sample prep technician at time of imaging. Electronically authenticated by: ALEXI BRANCH Date: 2022-07-16 13:36 Normal [facility] HEP B SURFACE ANTIGEN SCREEN on 07-03-2022 HBsAg Screen Negative Normal Negative [facility] Comment on above: Performed By: #### A 1C #### [facility] [address] [place] [address] Dr. Jani Haywood HEPATITIS C VIRUS AB W/ REFL EX QUANTon 07-03-2022 HCV AB <0.1 Normal 0.0-0.9 [facility] Comment on above: Performed By: #### H CVPCRR #### [facility] [address] [place] [address] Dr. Jani Haywood Interpretation: Comment Normal [facility] Comment on above: Result Comment: Nega tive Not infected with HCV, unless recent infection is suspected or other evidence exists to indicate HCV infection. Performed By: #### H CVPCRR #### [facility] [address] [place] [address] Dr. Jani Haywood HIV 1 AND 2 WITH REFLEXon HIV Screen 4th Generation wRfx Non-Reactive Normal Non Reactive [facility] Comment on above: Result Comment: HIV Negative HIV-1/HIV-2 antibodies and HIV-1 p24 antigen were NOT detected. There is no laboratory evidence of HIV infection. Performed By: #### H IV12 #### [facility] [address] [place] [address] Dr. Jani Haywood RPR QUANTon 07-03-2022 Rapid Plasma Reagin, Quant Non-Reactive Normal NonRea<1:1 [facility] Comment on above: Result Comment: Plea se Note: This test does not meet current guidelines for screening and diagnosis of syphilis. This test is intended for following treatment response in patients being treated for syphilis infection. To screen for syphilis infection, a reflex cascade that includes both RPR and a treponema-specific assay should be utilized, such as Treponema pallidum (Syphilis) Screening [place] (630397) or Rapid Plasma Reagin (RPR) Test With Reflex to Quantitative RPR and Confirmatory Treponema pallidum Antibodies (469225). Performed By: #### R PRQ #### [facility] [address] [place] [address] Dr. Jani Haywood RUBELLA AB IGGon 07-03-2022 Rubella Antibodies, IgG 2.92 index Normal Immune >0.99 [facility] Comment on above: Result Comment: Non- immune <0.90 Equivocal 0.90 - 0.99 Immune >0.99 Performed By: #### A 1C #### [facility] [address] [place] [address] Dr. Jani Haywood CBC AUTO DIFFon 07-02-2022 BASO # 0.1 103/ul Normal 0.0-0.1 [facility] Comment on above: Performed By: #### C BC #### [facility] [address] [place] [address] Dr. Jani Haywood Basophils/100 WBC (Bld) 0.7 % Normal 0.2-2.0 [facility] Comment on above: Performed By: #### C BC #### [facility] [address] [place] [address] Dr. Jani Haywood EO # 0.1 103/ul Normal 0.0-0.7 [facility] Comment on above: Performed By: #### C BC #### [facility] [address] [place] [address] Dr. Jani Haywood Eosinophils/100 WBC (Bld) 1.2 % Normal 0.9-7.0 [facility] Comment on above: Performed By: #### C BC #### [facility] [address] [place] [address] Dr. Jani Haywood Erythrocyte distribution width (RBC) [Ratio] 13.7 % Normal 11.0-15.0 [facility] Comment on above: Performed By: #### C BC #### [facility] [address] [place] [address] Dr. Jani Haywood Hematocrit (Bld) [Volume fraction] 37.9 % Normal 36.0-48.0 [facility] Comment on above: Performed By: #### C BC #### [facility] [address] [place] [address] Dr. Jani Haywood Hemoglobin (Bld) [Mass/Vol] 12.6 g/dL Normal 12.0-16.0 [facility] Comment on above: Performed By: #### C BC #### [facility] [address] [place] [address] Dr. Jani Haywood IG # 0.02 10e3/ul Normal 0.00-0.03 [facility] Comment on above: Performed By: #### C BC #### [facility] [address] [place] [address] Dr. Jani Haywood IG % 0.3 % Normal 0.0-0.5 [facility] Comment on above: Performed By: #### C BC #### [facility] [address] [place] [address] Dr. Jani Haywood LYMPH # 1.6 103/ul Normal 1.2-3.8 [facility] Comment on above: Performed By: #### C BC #### [facility] [address] [place] [address] Dr. Jani Haywood Lymphocytes/100 WBC (Bld) 21.5 % Normal 20.5-60.0 [facility] Comment on above: Performed By: #### C BC #### [facility] [address] [place] [address] Dr. Jani Haywood MANUAL DIFF REQ NO Normal [facility] Comment on above: Performed By: #### C BC #### [facility] [address] [place] [address] Dr. Jani Haywood MCH (RBC) [Entitic mass] 30.4 pg Normal 26.7-34.0 [facility] Comment on above: Performed By: #### C BC #### [facility] [address] [place] [address] Dr. Jani Haywood MCHC (RBC) [Mass/Vol] 33.2 g/dL Normal 29.9-35.2 [facility] Comment on above: Performed By: #### C BC #### [facility] [address] [place] [address] Dr. Jani Haywood MCV (RBC) [Entitic vol] 91.3 fL Normal 81.0-99.0 [facility] Comment on above: Performed By: #### C BC #### [facility] [facility] [address] [place] [address] Dr. Jani Haywood MONO # 0.5 103/ul Normal 0.3-0.8 [facility] Comment on above: Performed By: #### C BC #### [facility] [address] [place] [address] Dr. Jani Haywood Monocytes/100 WBC (Bld) 6.6 % Normal 1.7-12.0 [facility] Comment on above: Performed By: #### C BC #### [facility] [address] [place] [address] Dr. Jani Haywood NEUT # 5.1 103/ul Normal 1.4-6.5 [facility] Comment on above: Performed By: #### C BC #### [facility] [address] [place] [address] Dr. Jani Haywood Neutrophils/100 WBC (Bld) 69.7 % Normal 43.0-75.0 [facility] Comment on above: Performed By: #### C BC #### [facility] [address] [place] [address] Dr. Jani Haywood Platelet mean volume (Bld) [Entitic vol] 10.2 fL Normal 9.5-13.5 [facility] Comment on above: Performed By: #### C BC #### [facility] [address] [place] [address] Dr. Jani Haywood PLT 281 103/ul Normal 150-450 [facility] Comment on above: Performed By: #### C BC #### [facility] [address] [place] [address] Dr. Jani Haywood RBC 4.15 106/ul Critically low 4.20-5.40 [facility] Comment on above: Performed By: #### C BC #### [facility] [address] [address] [address] Jani Haywood WBC 7.3 103/ul Normal 4.0-11.0 [facility] Comment on above: Performed By: #### C BC #### [facility] [address] [address] [address] Jani Haywood GLYCOHEMOGLOBIN A1Con 2022 ADA RECOMMENDATION SEE BELOW Normal [facility] Comment on above: Result Comment: ADA RECOMMENDED LIMIT 4.0 - 6.0 ADA THERAPEUTIC TARGET < 7.0 ACTION SUGGESTED > 7.0 Performed By: #### A 1C #### [facility] [address] [place] [address] Dr. Jani Haywood Glucose [Mass/Vol] 103 mg/dL Normal [facility] Comment on above: Performed By: #### A 1C #### [facility] [address] [address] [address] Jani Haywood HbA1c (Bld) [Mass fraction] 5.2 % Normal 4.5-6.2 [facility] Comment on above: Performed By: #### A 1C #### [facility] [address] [place] [address] Dr. Jani Haywood CRISTELA BOX TEST PT SEND OUTo n 07-02-2022 SENT TO REF LAB 07/02/2022 Normal [facility] Comment on above: Performed By: #### N BOX #### [facility] [address] [place] [address] Dr. Jani Haywood TYPE AND SCREENon 07-02-2022 TYPE AND SCREEN Negative Normal [facility] Comment on above: Performed By: #### A 1C #### [facility] [address] [place] [address] Dr. Jani Haywood US PREG TVon 06-18-2022 [...] by: RIMMA BATRES Date: 2022-06-18 16:09 Normal [facility] PAP ACOG PANEL 2: 30 to 65on 12-03-2021 . . Normal [facility] Comment on above: Result Comment: Perf ormed at: WB Performed By: #### [id number] #### [facility] [address] [place] [address] Dr. Jani Haywood Age Gdln ACOG Testing 30-65 [facility] Comment on above: Performed By: #### 4 [id number] #### [facility] [address] [place] [address] Dr. Jani Haywood DIAGNOSIS: Comment Normal [facility] Comment on above: Result Comment: NEGA TIVE FOR INTRAEPITHELIAL LESION OR MALIGNANCY. Performed at: WB Performed By: #### [id number] #### [facility] [address] [place] [address] Dr. Jani Haywood HPV Aptima Negative Normal Negative [facility] Comment on above: Result Comment: This nucleic acid amplification test detects fourteen high-risk HPV types (16,18,31,33,35,39,45,51,52,56,58,59,66,68) without differentiation. Performed at: =G Performed By: #### 4 [id number] #### [facility] [address] [address] [address] Jani Haywood Methodology: Comment Normal [facility] Comment on above: Result Comment: This liquid based ThinPrep(R) pap test was screened with the use of an image guided system. Performed at: WB Performed By: #### [id number] #### [facility] [address] [place] [address] Dr. Jani Haywood Note: Comment Normal [facility] Comment on above: Result Comment: The Pap smear is a screening test designed to aid in the detection of premalignant and malignant conditions of the uterine cervix. It is not a diagnostic procedure and should not be used as the sole means of detecting cervical cancer. Both false-positive and false-negative reports do occur. . Performed at: WB Performed By: #### [id number] #### [facility] [address] [address] [address] Jani Haywood Performed by: Comment Normal [facility] Comment on above: Result Comment: Nikki Schwab, Correspondence Analyst (ASCP) Performed at: WB Performed By: #### [id number] #### [facility] [address] [address] [address] Jani Haywood Specimen adequacy: Comment Normal [facility] Comment on above: Result Comment: Sati sfactory for evaluation. Endocervical and/or squamous metaplastic cells (endocervical component) are present. Performed at: WB Performed By: #### 4 [id number] #### [facility] [address] [address] [address] Jani Haywood Vital Signs Date Time Vital Sign Value Performing Clinician Facility 07-30-2023 09:32-0500 Body mass index (BMI) [Ratio] 25.88 kg/m2 [employer] Work Phone: [facility] 07-30-2023 09:32-0500 Body weight 66.28 kg [employer] Work Phone: [facility] 07-30-2023 09:32-0500 Diastolic blood pressure 60 mm[Hg] Ivan Pollo DO Work Phone: [facility] 07-30-2023 09:32-0500 Systolic blood pressure 100 mm[Hg] Ivan Pollo [employer] Work Phone: [facility] 07-23-2023 14:33-0500 Body mass index (BMI) [Ratio] 26.24 kg/m2 Terese REYES Work Phone: [facility] 07-23-2023 14:33-0500 Body weight 67.19 kg Terese REYES Work Phone: [facility] 07-23-2023 14:33-0500 Diastolic blood pressure 68 mm[Hg] Terese REYES Work Phone: [facility] 07-23-2023 14:33-0500 Systolic blood pressure 110 mm[Hg] Terese REYES Work Phone: [facility] 11-24-2021 14:10-0400 Body height 160.02 cm Megan Oconnor Other [facility] Other 11-24-2021 14:10-0400 Body mass index (BMI) [Ratio] 20.55 kg/m2 Megan Oconnor Other [facility] Other 11-24-2021 14:10-0400 Body temperature 96.9 [degF] Megan Oconnor Other [facility] Other 11-24-2021 14:10-0400 Body weight 52.62 kg Megan Oconnor Other [facility] Other 11-24-2021 14:10-0400 SaO2% (BldA) [Mass fraction] 97 % Megan Oconnor Other [facility] Other Encounters Encounter Date Encounter Type Care Provider Facility Start: 07-30-2023 End: 07-30-2023 ambulatory IVAN POLLO Not Available Start: 07-30-2023 End: 07-30-2023 flow sheet Ivan Pollo DO Work Phone: [facility] Comment on above: Third trimester preg luan; Small for gestational age (SGA) Start: 07-23-2023 End: 07-23-2023 ambulatory TERESE AGUILA Not Available Start: 07-23-2023 End: 07-23-2023 flow sheet Terese REYES Work Phone: [facility] Comment on above: Low blood pressure r eading; Dizziness; Feeling faint; Third trimester Start: 07-21-2023 End: 07-21-2023 ambulatory YULISSA JAIME Facility:[facility] Start: 07-15-2023 End: 07-15-2023 ambulatory TERESE AGUILA Not Available Start: 07-01-2023 End: 07-01-2023 ambulatory IVAN POLLO Not Available Start: 06-18-2023 End: 06-18-2023 ambulatory TERESE AGUILA Not Available Start: 05-20-2023 End: 05-20-2023 ambulatory IVAN POLLO Not Available Start: 10-10-2022 Telephone encounter Leo [facility] 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 Start: 10-09-2022 ambulatory Yulissa WOOD Work Phone: Audiology Start: 09-24-2022 End: 09-24-2022 ambulatory RIMMA STERLING Facility:[facility] Start: 09-24-2022 End: 09-24-2022 Patient encounter procedure Rimma Sterling PAAnuradha Work Phone: Otolaryngology Comment on above: Cochlear implant in place (Primary Dx); Sensorineural hearing loss, asymmetrical; Sensorineural hearing loss, bilateral Start: 07-29-2022 End: 07-30-[address] ARIEL RAJAN Facility:[facility] Start: 07-18-2022 End: 07-18-[address] ROSA CARTER Facility:[facility] Start: 07-17-2022 Encounter for preprocedural laboratory examination DR ROSA CARTER [facility] Start: 07-16-2022 End: 07-17-[address] ROSA CARTER Facility:[facility] Start: 07-16-2022 End: 07-17-2022 Encounter for preprocedural laboratory examination DR ROSA CARTER Facility:[facility] Start: 07-02-2022 End: 07-03-[address] ROSA CARTER Facility:[facility] Start: 06-18-2022 End: 06-19-[address] ROSA CARTER Facility:[facility] Start: 11-27-2021 End: 11-27-[address] ROSA CARTER Facility:[facility] Start: 11-24-2021 End: 11-24-2021 ambulatory Megan Oconnor Other [facility] Other Start: 11-24-2021 Office outpatient vi sit [...] (3 - PPSV23 if available, else PCV20) [facility] Start: 04-22-2028 Screening for malign ant neoplasm of cervix [facility] Start: 04-26-2024 End: 04-26-2024 Patient encounter procedure 04/26/2024 9:00 AM EST Office Visit [facility] [address] [place] [id number] Ivan Abad, DO [address] [place] [address] [facility] Start: 08-13-2023 End: 08-13-2023 Patient encounter procedure 08/13/2023 11:20 AM EST Routine [facility] [address] [place] [id number] Ivan Abad, DO [address] [place] [address] [facility] Start: 07-30-2023 End: 07-30-2024 US biophysical profile w non stress test US biophysical profile w non stress test Imaging Routine Small for gestational age (SGA) Expected: 07/30/2023 (Approximate), Expires: 07/30/2024 [facility] Work Phone: Comment on above: Expected: 07/30/2023 (Approximate), Expires: 07/30/2024 Start: 07-30-2023 End: 07-30-2023 Patient encounter procedure 07/30/2023 9:20 AM EST Routine [facility] [address] [place] [id number] Ivan Abad, DO [address] [facility] [address] [place], [place] [id number] [facility] Start: 07-23-2023 End: 07-23-2023 Professional / ancillary services management 07/23/2023 3:00 PM EST Ancillary Procedure [facility] [address] [place] [phone] [facility] Start: 02-20-2023 Influenza vaccination [facility] Start: 06-22-2022 DEPRESSION ASSESSMENT DEPRESSION ASS ESSMENT [facility] Start: 10-20-2021 COVID-19 VACCINE (3 - Booster for Pfizer series) COVID-19 VACCINE (3 - Booster for Pfizer series) [facility] Start: 2019 Mammography MAMMOGRAM [facility] Start: 2019 Screening for malign ant neoplasm of breast Mammogram [facility] Start: 11-17-2009 HPV TESTING HPV TESTING [facility] Start: 11-17-2000 PAP TESTING PAP TESTING [facility] Start: 11-17-1998 Urine microalbumin profile DTAP,TDAP,TD (1 - Tdap) [facility] Start: 11-17-1997 HEPATITIS C SCREENING HEPATITIS C SC JOSE [facility] Start: 11-17-1997 HIV SCREENING HIV SCREENING [facility] Start: 1980 HEPATITIS B (1 of 3 - 3-dose series) HEPATITIS B (1 of 3 - 3-dose series) [facility] Immunizations Immunization Date Immunization Notes Care Provider Fa cility 03-22-2020 influenza virus vacc ine, unspecified formulation Terese REYES Work Phone: [facility] 08-13-2017 pneumococcal polysaccharide vaccine, 23 valent Rimma Sterling PA-C Work Phone: [facility] 08-10-2014 pneumococcal conjuga te vaccine, 13 valent Rimma Sterling PA-C Work Phone: [facility] Payers Date Payer Category Payer Unknown [id number] 2022 Unknown [id number] 1980 Unknown [id number] 2.16.84 [id number] 1979 Unknown [id number] 2.16.84 [id number] 1979 Unknown [id number] 2.16.84 [id number] 1979 Unknown [id number] 2.16.84 [id number] 1979 Unknown [id number] 2.16.84 [id number] 1979 Unknown [id number] 2.16.84 [id number] 1979 Unknown [id number] 2.16.84 [id number] 1979 Unknown [id number] 2.16.84 [id number] 1979 Unknown [id number] 2.16.84 [id number] 1979 Unknown [id number] 2.16.84 [id number] 1979 Unknown [id number] 2.16.84 [id number] 1979 Unknown [id number] 2.16.840 .[id number] 1979 Unknown [id number] 2.16.840 .[id number] [facility] [id number] Unknown [id number] 2.16.84 [id number] Social History Date Type Detail Facility Start: 03-16-2023 Sex Assigned At [facility] Other Start: 09-24-2022 End: 03-16-2023 Tobacco smoking status NHIS Never smoked tobacco [facility] Start: 09-24-2022 End: 03-16-2023 Tobacco use and exposure Smokeless tobacco non-user [facility] Start: 09-24-2022 Alcohol intake Current non-drinker of alcohol (finding) [facility] Start: 1980 Sex Assigned At Female [facility] Start: 07-23-2023 End: 07-30-2023 Alcohol intake Ex-drinker (finding) [facility] Start: 03-16-2023 History of Social function [facility] Start: 04-22-2023 Alcohol Comment occasional alcohol use, Caffeine intake: none [facility] Start: 12-25-2022 [facility] Start: 01-21-2023 Gender identity Identifies as female gender (finding) [facility] Start: 01-21-2023 Sexual orientation Heterosexual (finding) [facility] Medical Equipment Procedure Code Equipment Code Equipment Original Text Equipment Identifier Dates Sqs-Pk-D-Kind Implant - [id number] Start: 09-02-2017 Comment on above: Description: NUCLEUS SOUND PROCESSORS Goals Date Patient Goal Desired Activity /State Personal health goal Clinical Notes 11-24-2021 to 07-30-2023 Ivan Abad DO - 07/30/2023 9:20 AM ERIC Guan - 07/23/2023 2:20 PM ESTTelephone Encounter - Leo Atkinson - 10/10/2022 3:51 PM ISRAEL Cuellar - 10/09/2022 12:57 PM EDT Note Date [...] Ivan Abad DO documented in this encounter [facility] 07-23-2023 History of Presen t illness Narrative [...] of: ERIC Smallwood documented in this encounter [facility] 07-21-2023 Note HNO ID: [id number] Author: YULISSA JAIME AUD Service: ? Author Type: Wet End Supervisor Type: Progress Notes Filed: 07/21/2023 08:47 Note Text: [facility] Section of Allied Hearing, Speech and Balance Services COCHLEAR IMPLANT ADULT PROGRAMMING Name: Amy ALFARO [facility]#: [id number] Date of Service: July 21, 2023 Date of : 1980 Age: [age] year old COCHLEAR IMPLANT INFORMATION (see below for all device details) Updated: July 21, 2023 Right ear: Phonak Audeo [facility] Hearing Aid that was fit at an outside facility (November 2021) and is being managed by that facility. Left ear: External Processor: Cochlear Snipds [id number] (Nucleus 8; upgraded around January 2023) Processor SN: [id number] Processor ([id number]) SN: [id number] Magnet strength: 2 Internal Device: Cochlear [id number] Profile with Slim Modiolar Electrode Array Internal Device SN: [id number] Inactive electrodes: None Surgery Date: 09/02/2017 Initial [...] 6; Sensitivity: 12) before programming. See the SeanodesForm Audiogram for obtained thresholds. Speech perception testing was completed at 60 jordan worker using recorded stimuli in the sound field at 0 degrees azimuth. NOTE: The contralateral ear was not plugged and muffed during testing. The following testing and results were obtained: Viznftuah-Lyadenc-Fjwicswxy Words (CNC) Test Condition List # Phonemes [...] hours. * Revie (more content not included)... [facility] 10-10-2022 Miscellaneous Notes Hair Clipper Power: Katerina Mina Patient: Hasmukh Alfaro 1980 Clinic: [facility] Wet End Supervisor: Dr. Yulissa Jaime Appointment Length: 45 Minutes What are you looking to accomplish?: I d like to learn more about the Nucleus 8 and the process of upgrading Recipient's Stated Reason for Upgrading Clinic Request - Wet End Supervisor recommended it [employer] - Processor more [...] steps are Acquisition Methods Recipient will receive Ocy-su-Sxwrae cost estimate once order placed Next Steps If recipient decides to move forward with pursuing a Nucleus 8 upgrade and provides us with the necessary order information, we will start an order on their behalf. You will hear from Cochlear s Tombstone Setter team, via email/DocuSign to gain your approval or regarding an LMN to allow this patient to move forward in the process. Following completion of the upgrade process, I will invite the recipient to schedule time for a complimentary onboarding with our [employer] team so they can begin to maximize the use of their new Cochlear equipment. documented in this encounter [facility] 10-09-2022 Note HNO ID: [id number] Author: ISRAEL Champion Service: ? Author Type: Wet End Supervisor Type: Progress Notes Filed: 10/09/2022 12:58 PM [...] any questions. Upgrade Consultation Clinic Patient Report Hair Clipper Power: Katerina Mina Patient: Hasmukh Alfaro 1980 Clinic: [facility] Wet End Supervisor: Dr. Yulissa Jaime Appointment Length: 45 Minutes What are you looking to accomplish?: I?d like to learn more about the Nucleus 8 and the process of upgrading Recipient's Stated Reason for Upgrading ? Clinic Request - Wet End Supervisor recommended it ? [employer] - Processor [...] are Acquisition Methods ? Recipient will receive Cum-ob-Wbqmax cost estimate once order placed Next Steps ? If recipient decides to move forward with pursuing a Nucleus 8 upgrade and provides us with the necessary order information, we will start an order on their behalf. You will hear from Cochlear?s Tombstone Setter team, via email/DocuSign to gain your approval or regarding an LMN to allow this patient to move forward in the process. Following completion of the upgrade process, I will invite the recipient to schedule time for a complimentary onboarding with our [employer] team so they can begin to maximize the use of their new Cochlear equipment. Warm Regards, Eloisa Vazquez, [facility]/A Clinical Wet End Supervisor [facility] 10-09-2022 History of Presen t illness [...] any questions. Upgrade Consultation Clinic Patient Report Hair Clipper Power: Katerina Mina Patient: Hasmukh Alfaro 1980 Clinic: [facility] Wet End Supervisor: Dr. Yulissa Jaime Appointment Length: 45 Minutes What are you looking to accomplish?: I d like to learn more about the Nucleus 8 and the process of upgrading Recipient's Stated Reason for Upgrading Clinic Request - Wet End Supervisor recommended it [employer] - Processor more [...] steps are Acquisition Methods Recipient will receive Eaq-ft-Khpdxm cost estimate once order placed Next Steps If recipient decides to move forward with pursuing a Nucleus 8 upgrade and provides us with the necessary order information, we will start an order on their behalf. You will hear from Cochlear s Tombstone Setter team, via email/DocuSign to gain your approval or regarding an LMN to allow this patient to move forward in the process. Following completion of the upgrade process, I will invite the recipient to schedule time for a complimentary onboarding with our [employer] team so they can begin to maximize the use of their new Cochlear equipment. Warm Regards, Eloisa Vazquez, [facility]/A Clinical Wet End Supervisor documented in this encounter [facility] 09-24-2022 Note HNO ID: [id number] Author: Rimma Sterling PA-C Service: ? Author Type: Physician Predatory Animal Exterminator Type: Progress Notes Filed: 09/24/2022 9:53 AM Note Text: History of Present Illness Ms. AMY ALAFRO is a 41 year old year old female presenting for: referred by SELF And is a patient of DO Abel Card DO [address] [place] [address] Communication will be via the electronic record [...] (FLONASE) 50 mcg/actuation nasal spray Use 1 Andrews in each nostril as needed. multivitamin (DAILY [...] Medical Decision Making Level: 2 - Straightforward [facility] 09-24-2022 Instructions Rimma Sterling PA-C - 09/24/2022 9:[address] Audra Umanzor use his name on paperwork documented in this encounter [facility] 09-24-2022 History of Presen t illness Narrative History of Present Illness Ms. AMY ALFARO is a 41 year old year old female presenting for: referred by SELF And is a patient of DO Abel Card DO [facility] [place] [address] Communication will be via the electronic record [...] (FLONASE) 50 mcg/actuation nasal spray Use 1 Andrews in each nostril as needed. multivitamin (DAILY [...] 2 - Straightforward documented in this encounter [facility] 07-18-2022 Note EXAMINATION: US PELV IS HISTORY: Surgical procedure COMPARISON: Ultrasound less than 14 weeks 07/16/2022 TECHNIQUE: Transabdominal and transvaginal sonographic examination. FINDINGS: Final images show an empty endometrial cavity. IMPRESSION: 1. No appreciable products of conception within endometrial cavity following dilation and curettage. Electronically authenticated by: ALEXI BRANCH Date: 2022-07-18 08:21 [facility] 11-24-2021 Evaluation note Encounter Date Diagnosis [...] Fungal rash of trunk (ICD-10 - B36.9) [facility] Other Evaluation note* Diagnosis Cochlear implant in place- Primary Other postprocedural status Sensorineural hearing loss, asymmetrical Sensorineural hearing loss, bilateral [facility] Low blood pressure reading Nonspecific low blood pressure reading Dizziness Dizziness and giddiness Feeling faint Third trimester state, incidental [facility] Third trimester state, incidental Small for gestational age (SGA) [facility] N[facility] - Reported* Type Description Date Medical History bilateral hearing loss Surgical History cochlear implant Surgical History D&C [facility] Other Summary Purpose Family History No Family History Records FoundNo Family History Records FoundNo Family History Records Found Advance Directives No Advanced Directives Records FoundNo Advanced Directives Records FoundNo Advanced Directives Records Found Additional Source Comments REASON FOR VISIT (unrecogniz ed section and content) Reason Comments Hearing Loss New. Self referral. CI LT side. Last audio 03/18/22. Denies otalgia and otorrhea. 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 Reason Comments Dizziness Hypotension Reason Comments Routine Visit INFORMATION SOURCE (unrecogn ized section and content) DATE CREATED AUTHOR 07/30/2022 [facility] DATE CREATED AUTHOR AUTHOR'S ORGANIZ ATION 07/22/2023 [facility] DATE CREATED AUTHOR AUTHOR'S ORGANIZ ATION 07/31/2023 [facility] EPIC Source Comments (unrecognize d section and content) In the event this informatio n is protected by the Federal Confidentiality of Alcohol and Drug Abuse Patient Records regulations: The Federal rules restrict any use of the information to criminally investigate or prosecute any alcohol or drug abuse patient.[facility] event this information is protected by the Federal Confidentiality of Alcohol and Drug Abuse Patient Records regulations: The Federal rules restrict any use of the information to criminally investigate or prosecute any alcohol or drug abuse patient.[facility] the event this information is protected by the Federal Confidentiality of Alcohol and Drug Abuse Patient Records regulations: The Federal rules restrict any use of the information to criminally investigate or prosecute any alcohol or drug abuse patient.[facility] Care Teams (unrecognized sec tion and content) Wharf Builder Relationship Specialty Start Date End Date Abel Sun PCP - General Family Medicine 03/15/14 Wharf Builder Relationship Specialty Start Date End Date Abel Sun PCP - General Family Medicine 03/15/14 Wharf Builder Relationship Specialty Start Date End Date Abel Sun PCP - General Family Medicine 03/15/14 Wharf Builder Relationship Specialty Start Date End Date Ariel Rajan MD [address] [place] [id number] PCP - General 02/16/23 Wharf Builder Relationship Specialty Start Date End Date Ariel Rajan MD [address] [place] [address] PCP - General 02/16/23 FOR RECORDS PERTAINING [...] BE BASED ON THE PRIMARY CLINICAL RECORDS. [facility] [employer] [facility]. provides no warranty or guarantee of the accuracy or completeness of information in this document.
--- NOTE | 2023-08-11 15:00 | US_ITS ---
[address] [address] Patient Name: HILLARY ALFARO MRN: [id number] date: 1980 Sex: F Assigned Patient Location: [facility] Current Patient Location: Accession/Order Number: [id number] Exam Date: 08/11/2023 15:02 Report Date: 08/11/2023 15:35 At the request of: IVAN KARIMI Procedure: US OB BPP w non-stress EXAMINATION: US OB BPP w non-stress HISTORY: Small for gestational age P05.10 COMPARISON: Ultrasound OB biophysical 08/04/2023 TECHNIQUE: Ultrasound biophysical profile was performed in the radiology department. BREATHING MOVEMENTS: 2.0 GROSS BODY MOVEMENTS: 2.0 TONE: 2.0 QUALITATIVE AMNIOTIC FLUID VOLUME: 2.0 PRESENTATION: CEPHALIC HEART RATE: 128.0 bpm bpm. AMNIOTIC FLUID VOLUME: 14.9 cm GESTATIONAL AGE: 34 weeks 5 days CONCLUSION: 1. Total biophysical profile score 8.0. 2. Fluid noted within scrotal sac bilaterally. Electronically authenticated by: ALEXI BRANCH Date: 08/11/2023 15:35
[2023-08-11 15:29] VITALS: BP 115/65; PULSE 74
== END 2023-08-11 15:50 ==
LOC: US 08:00 → FBC 15:00
PROVIDERS: PCP Family Medicine; Visit Provider Obstetrics & Gynecology
DX: O26.843 Uterine size-date discrepancy, third trimester (principal); Z3A.34 34 weeks gestation of pregnancy
CPT/HCPCS: 76818

== ENCOUNTER 2023-08-14 07:55 | Outpatient (OUT) | payer OTHER, SELFPAY ==
--- OUTSIDE RECORDS SUMMARY | 2023-08-14 08:01 | XMS_ITS | CCD ---
Author Name Unknown Address [address] [place] [address] Organization [facility] Care Team Providers Care Airset Caster Name Role Phone Megan Oconnor Unavailable ANDRES, [...] Unavailab Ariel Rich MD Primary Care Provider [phone] TERESE AGUILA Attending Unavailable IVAN ABAD Attending Unavailable TERESE AGUILA Attending Unavailable TERESE AGUILA Attending Unavailable IVAN ABAD Attending Unavailable IVAN ABAD Attending Unavailable Allergies Allergy Classification Reported Allergen(s) Allergy Type Date of Onset Reaction(s) Facility (4 sources) Seasonal allergy; Translations: [SEASONAL ALLERGIES] Allergy to substance 4 Cough [facility] (4 sources) Octacosanol Drug Allergy 4 Cough [facility] (4 sources) Other Propensity to adverse reactions 3 Unknown [facility] Medications Current Medications Medication Drug Class(es) Dates Sig (Normalized) Sig (Original) [id number] actuat albuterol 0.09 mg/actuat metered dose [...] on above: Take 1 capsule by mo [facility] as needed. fluticasone propionate 0.05 mg/actuat metered dose nasal spray (3 sources) Corticosteroid fluticasone (FLONASE) 50 mcg/actuation nasal spray Indications: Bilateral sensorineural hearing loss , Autoimmune disorder of inner ear Use 1 [place] in each nostril as needed. 0 Active Comment on above: Use 1 [place] in each nostril as needed. LOW-DOSE ASPIRIN PO (2 sources) Start: 04-02-2023 End: 07-23-2023 LOW-DOSE ASPIRIN PO multivitamin (DAILY MULTIPLE) tablet (3 sources) take 1 tablet by mouth once daily multivitamin (DAILY MULTIPLE) tablet Take 1 tablet by mouth once daily. 0 Active Comment on above: Take 1 tablet by [facility] once daily. predniSONE 10 mg oral tablet [...] low weight; and growth retardation (2 sources) [id number] baby; Translations: [ small for gestational age, [...] UA Negative Negative - 4(70) +++ mg/dL [facility] Blood, UA Positive Negative - 50 Bobby/mcL [facility] Comment on above: trace-intact Clarity, UA Clear [facility] re Color, UA [facility] e Glucose, UA Negative Negative - 1999(110) ++++ mg/dL [facility] Interpretation and review of laboratory results Abnormal [facility] Ketones, UA Negative Negative - 160(16) ++++ mg/dL [facility] Leukocytes, UA Positive Negative - 500+++ Suzette/mcL [facility] Comment on above: small Nitrite, UA Negative Negative - Positive [facility] pH, UA 6.0 5 - 9 [facility] Protein, UA Negative Negative - 1999(20) ++++ mg/dL [facility] Spec Grav, UA 1.010 1 - 1.03 [facility] Urobilinogen, UA 0.2 0.2 - 12 mg/dL [facility] Urinalysis macro (dipstick) panel (U)on 07-23-2023 Bilirubin, UA Negative Negative - 4(70) +++ mg/dL [facility] Blood, UA Negative Negative - 50 Bobby/mcL [facility] Clarity, UA Clear [facility] Color, UA Yellow [facility] Glucose, UA Negative Negative - 1999(110) ++++ mg/dL [facility] Interpretation and review of laboratory results Abnormal [facility] Ketones, UA Negative Negative - 160(16) ++++ mg/dL [facility] Leukocytes, UA Positive Negative - 500+++ Suzette/mcL [facility] Comment on above: small Nitrite, UA Negative Negative - Positive [facility] pH, UA 7.0 5 - 9 [facility] Protein, UA Negative Negative - 1999(20) ++++ mg/dL [facility] Spec Grav, UA 1.015 1 - 1.03 [facility] Urobilinogen, UA 0.2 0.2 - 12 mg/dL [facility]-21-2023 CNOV Office Visit (MALISSAUCR ) AMY ALFARO ([id number]) 1980 F Date Time Provider Department 07/21/23 7:30 AM YULISSA JAIME During your visit today, we recorded the following information about you: Yulissa Jaime AUD 07/21/2023 8:47 AM Signed [facility] [place] [facility] COCHLEAR IMPLANT ADULT PROGRAMMING Name: Amy ALFARO CC#: [id number] Date of Service: July 21, 2023 Date of : 1980 Age: [age] year old COCHLEAR IMPLANT INFORMATION (see below for all device details) Updated: July 21, 2023 Right ear: Phonak Audeo RITE Hearing Aid that was fit at an outside facility (November 2021) and is being managed by that facility. 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 See the LBE Security Master Audiogram for obtained thresholds. Speech perception testing was completed at 60 camera operator using recorded stimuli in the sound field at 0 degrees azimuth. NOTE: The contralateral ear was not plugged and muffed during testing. The following testing and results were obtained: Hzxtrdahu-Diibyvw-Fvk sonant Words (CNC) Test Condition List # [...] etc. Shoul (more content not included)... Normal [facility] Ada 10-10-2022 JEANN Telephone (HNQ) DOMINICAMY Shravan ([id number]) 1980 F Date Time Provider Department 10/10/22 LEO ATKINSON During your visit today, we recorded the following information about you: Leo Huitrononnell 10/10/2022 3:52 PM Signed Director Of Business Operations: Katerina Mina Patient: Hasmukh Alfaro 1980 Clinic: [facility] Marketing Segment Manager: Dr. Yulissa Jaime Appointment Length: 45 Minutes What are you looking to accomplish?: I?d like to learn more about the Nucleus 8 and the process of upgrading Recipient's Stated Reason for Upgrading ? Clinic Request - Marketing Segment Manager recommended it ? Useful Life - Processor [...] are Acquisition Methods ? Recipient will receive Fpj-lg-[id number] cost estimate once order placed Next Steps ? If recipient decides to move forward with pursuing a Nucleus 8 upgrade and provides us with the necessary order information, we will start an order on their behalf. You will hear from [employer]s Cocoa Bean Cleaner team, via email/DocuSign to gain your approval [...] Ma - Fully Assessed Reason for Visit: Hedis Specialist - Other [3602] Prescriptions as of 10/10/2022 - predniSONE (DELTASONE) 10 mg tablet Take by mouth four (4) tabs x3 days; then three (3) tabs x3days; then two (2) tabs x3 days; then one (1) tab a day x3 days - DOCUSATE SODIUM (COLACE ORAL) Take 1 tablet by mouth as needed. - fluticasone (FLONASE) 50 mcg/actuation nasal spray Use 1 [place] in each nostril as needed. - multivitamin [...] Encounter Status:Closed by LEO ATKINSON on 10/10/22 [facility] Emily 09-24-2022 CNOV Office Visit (OTOLCR ) AMY ALFARO ([id number]) 1980 F Date Time Provider Department 09/24/22 9:30 AM RIMMA STERLING OTVIDAL During your visit today, we recorded the following information about you: Rimma Sterling PA-C 09/24/2022 9:53 AM Signed History of Present Illness Ms. AMY ALFARO is a 41 year old year old female presenting for: referred by SELF And is a patient of DO Abel Card DO [address] [place] [address] Communication will be via the electronic record [...] (FLONASE) 50 mcg/actuation nasal spray Use 1 [place] in each nostril as needed. multivitamin (DAILY [...] ALLERGIES 1 (more content not included)... Normal [facility] CBC AUTO DIFFon 07-29-2022 BASO # 0.0 103/ul Normal 0.0-0.1 [facility] Comment on above: Performed By: #### C BC #### [facility] [address] [place] [address] Dr. Jani Haywood Basophils/100 WBC (Bld) 0.6 % Normal 0.2-2.0 [facility] Comment on above: Performed By: #### C BC #### [facility] [address] [place] [address] Dr. Jani Haywood EO # 0.1 103/ul Normal 0.0-0.7 [facility] Comment on above: Performed By: #### C BC #### [facility] [address] [place] [address] Dr. Jani Haywood Eosinophils/100 WBC (Bld) 2.5 % Normal 0.9-7.0 [facility] Comment on above: Performed By: #### C BC #### [facility] [address] [place] [address] Dr. Jani Haywood Erythrocyte distribution width (RBC) [Ratio] 13.7 % Normal 11.0-15.0 [facility] Comment on above: Performed By: #### C BC #### [facility] [address] [place] [address] Dr. Jani Haywood Hematocrit (Bld) [Volume fraction] 40.3 % Normal 36.0-48.0 [facility] Comment on above: Performed By: #### C BC #### [facility] [address] [place] [address] Dr. Jani Haywood Hemoglobin (Bld) [Mass/Vol] 12.7 g/dL Normal 12.0-16.0 [facility] Comment on above: Performed By: #### C BC #### [facility] [address] [place] [address] Dr. Jani Haywood IG # 0.01 10e3/ul Normal 0.00-0.03 [facility] Comment on above: Performed By: #### C BC #### [facility] [address] [place] [address] Dr. Jani Haywood IG % 0.2 % Normal 0.0-0.5 [facility] Comment on above: Performed By: #### C BC #### [facility] [address] [place] [address] Dr. Jani Haywood LYMPH # 1.8 103/ul Normal 1.2-3.8 [facility] Comment on above: Performed By: #### C BC #### [facility] [address] [place] [address] Dr. Jani Hyawood Lymphocytes/100 WBC (Bld) 35.2 % Normal 20.5-60.0 [facility] Comment on above: Performed By: #### C BC #### [facility] [address] [place] [address] Dr. Jani Haywood MANUAL DIFF REQ NO Normal [facility] Comment on above: Performed By: #### C BC #### [facility] [address] [place] [address] Dr. Jani Haywood MCH (RBC) [Entitic mass] 30.5 pg Normal 26.7-34.0 [facility] Comment on above: Performed By: #### C BC #### [facility] [address] [place] [address] Dr. Jani Haywood MCHC (RBC) [Mass/Vol] 31.5 g/dL Normal 29.9-35.2 [facility] Comment on above: Performed By: #### C BC #### [facility] [address] [place] [address] Dr. Jani Haywood MCV (RBC) [Entitic vol] 96.9 fL Normal 81.0-99.0 [facility] Comment on above: Performed By: #### C BC #### [facility] [address] [place] [address] Dr. Jani Haywood MONO # 0.4 103/ul Normal 0.3-0.8 [facility] Comment on above: Performed By: #### C BC #### [facility] [address] [place] [address] Dr. Jani Haywood Monocytes/100 WBC (Bld) 8.1 % Normal 1.7-12.0 [facility] Comment on above: Performed By: #### C BC #### [facility] [address] [place] [address] Dr. Jani Haywood NEUT # 2.8 103/ul Normal 1.4-6.5 [facility] Comment on above: Performed By: #### C BC #### [facility] [address] [address] [address] Jani Haywood Neutrophils/100 WBC (Bld) 53.4 % Normal 43.0-75.0 [facility] Comment on above: Performed By: #### C BC #### [facility] [address] [address] [address] Jani Haywood Platelet mean volume (Bld) [Entitic vol] 10.0 fL Normal 9.5-13.5 [facility] Comment on above: Performed By: #### C BC #### [facility] [address] [address] [address] Jani Haywood PLT 271 103/ul Normal 150-450 [facility] Comment on above: Performed By: #### C BC #### [facility] [address] [place] [address] Dr. Jani Haywood RBC 4.16 106/ul Critically low 4.20-5.40 [facility] Comment on above: Performed By: #### C BC #### [facility] [address] [place] [address] Dr. Jani Haywood WBC 5.2 103/ul Normal 4.0-11.0 [facility] Comment on above: Performed By: #### C BC #### [facility] [address] [place] [address] Dr. Jani Haywood IRONon 07-29-2022 Iron [Mass/Vol] 64.0 ug/dL Normal 50.0-170.0 [facility] Comment on above: Performed By: #### A 1C #### [facility] [address] [place] [address] Dr. Jani Haywood PROF 14(COMP METB)on 023 Albumin [Mass/Vol] 3.5 g/dL Normal 3.4-5.0 [facility] Comment on above: Performed By: #### C MP #### [facility] [address] [place] [address] Dr. Jani Haywood Albumin/Globulin [Mass ratio] 0.9 {ratio} Normal [facility] Comment on above: Performed By: #### C MP #### [facility] [address] [address] [address] Jani Haywood ALP [Catalytic activity/Vol] 73 U/L Normal 46-116 [facility] Comment on above: Performed By: #### C MP #### [facility] [address] [address] [address] Jani Haywood ALT [Catalytic activity/Vol] 12 U/L Critically low 14-59 [facility] Comment on above: Performed By: #### C MP #### [facility] [address] [address] [address] Jani Haywood Anion gap [Moles/Vol] 11.0 mmol/L Normal [facility] Comment on above: Performed By: #### C MP #### [facility] [address] [place] [address] Dr. Jani Haywood AST [Catalytic activity/Vol] 13 U/L Critically low 15-37 [facility] Comment on above: Performed By: #### C MP #### [facility] [address] [address] [address] Jani Haywood Bilirubin [Mass/Vol] 0.5 mg/dL Normal 0.2-1.0 [facility] Comment on above: Performed By: #### C MP #### [facility] [address] [place] [address] Dr. Jani Haywood Calcium [Mass/Vol] 8.6 mg/dL Normal 8.5-10.1 [facility] Comment on above: Performed By: #### C MP #### [facility] [address] [address] [address] Jani Haywood Chloride [Moles/Vol] 105 mmol/L Normal 98-107 [facility] Comment on above: Performed By: #### C MP #### [facility] [address] [address] [address] Jani Haywood CO2 [Moles/Vol] 28.8 mmol/L Normal 21.0-32.0 [facility] Comment on above: Performed By: #### C MP #### [facility] [address] [address] [address] Jani Haywood Creatinine [Mass/Vol] 0.87 mg/dL Normal 0.55-1.02 [facility] Comment on above: Performed By: #### C MP #### [facility] [address] [address] [address] Jani Haywood EGFR-AF DOMINICAN >60 Normal >=60 [facility] Comment on above: Performed By: #### C MP #### [facility] [address] [address] [address] Jani Haywood EGFR-NON AF DOMINICAN >60 Normal >=60 [facility] Comment on above: Performed By: #### C MP #### [facility] [address] [place] [address] Dr. Jani Haywood Globulin (S) [Mass/Vol] 3.7 g/dL Normal [facility] Comment on above: Performed By: #### C MP #### [facility] [address] [place] [address] Dr. Jani Haywood Glucose [Mass/Vol] 95 mg/dL Normal 74-[address] [facility] Comment on above: Performed By: #### C MP #### [facility] [address] [address] [address] Jani Haywood Potassium [Moles/Vol] 3.8 mmol/L Normal 3.5-5.1 [facility] Comment on above: Performed By: #### C MP #### [facility] [address] [address] [address] Jani Haywood Protein [Mass/Vol] 7.2 g/dL Normal 6.4-8.[address] [facility] Comment on above: Performed By: #### C MP #### [facility] [address] [place] [address] Dr. Jani Haywood Sodium [Moles/Vol] 141 mmol/L Normal 136-[address] [facility] Comment on above: Performed By: #### C MP #### [facility] [address] [place] [address] Dr. Jani Haywood Urea nitrogen [Mass/Vol] 12.0 mg/dL Normal 7.0-18.0 [facility] Comment on above: Performed By: #### C MP #### [facility] [address] [place], [place] [address] Dr. Jani Haywood Urea nitrogen/Creatinine [Mass ratio] 13.8 mg/mg Normal [facility] Comment on above: Performed By: #### C MP #### [facility] [address], [place] [address] Dr. Jani Haywood Covid-19 PCR ([facility])on 06-23 SARS-CoV-2 (COVID-19) RNA CAROLE+probe Ql (Unsp spec) Not detected Normal NOT DETECTED [facility] Comment on above: Result Comment: This test is not yet approved or cleared by the [place] FDA. When there are no FDA-approved or cleared tests available, and other criteria are met, FDA can make tests available under an emergency access mechanism called an Emergency Use Authorization (EUA). The EUA for this test is supported by the Mobile Lab Technician of Health and Human Service's (HHS's) [...] Performed By: #### C VDTB #### [facility] [address], [place] [address] Dr. Jani Haywood US PREG <14 WKSon [...] was notified of these findings by the circulator at time of imaging. Electronically authenticated by: ALEXI BRANCH Date: 2022-07-16 13:36 Normal [facility] HEP B SURFACE ANTIGEN SCREEN on 07-03-2022 HBsAg Screen Negative Normal Negative [facility] Comment on above: Performed By: #### A 1C #### [facility] [address] [place] [address] Dr. Jani Haywood HEPATITIS C VIRUS AB W/ REFL EX QUANTon 07-03-2022 HCV AB <0.1 Normal 0.0-0.9 [facility] Comment on above: Performed By: #### H CVPCRR #### [facility] [address] [place] [address] Dr. Jani Haywood Interpretation: Comment Normal [facility] Comment on above: Result Comment: Nega tive Not infected with HCV, unless recent infection is suspected or other evidence exists to indicate HCV infection. Performed By: #### H CVPCRR #### [facility] [address] [place] [address] Dr. Jani Haywood HIV 1 AND 2 WITH REFLEXon HIV Screen 4th Generation wRfx Non-Reactive Normal Non Reactive [facility] Comment on above: Result Comment: HIV Negative HIV-1/HIV-2 antibodies and HIV-1 p24 antigen were NOT detected. There is no laboratory evidence of HIV infection. Performed By: #### H IV12 #### [facility] [address] [place] [address] Dr. Jani Haywood RPR QUANTon 07-03-2022 Rapid Plasma Reagin, Quant Non-Reactive Normal NonRea<1:1 [facility] Comment on above: Result Comment: Plea se Note: This test does not meet current guidelines for screening and diagnosis of syphilis. This test is intended for following treatment response in patients being treated for syphilis infection. To screen for syphilis infection, a reflex cascade that includes both RPR and a treponema-specific assay should be utilized, such as Treponema pallidum (Syphilis) Screening [place] (804315) or Rapid Plasma Reagin (RPR) Test With Reflex to Quantitative RPR and Confirmatory Treponema pallidum Antibodies (477638). Performed By: #### R PRQ #### [facility] [address] [place] [address] Dr. Jani Haywood RUBELLA AB IGGon 07-03-2022 Rubella Antibodies, IgG 2.92 index Normal Immune >0.99 [facility] Comment on above: Result Comment: Non- immune <0.90 Equivocal 0.90 - 0.99 Immune >0.99 Performed By: #### A 1C #### [facility] [address] [place] [address] Dr. Jani Haywood CBC AUTO DIFFon 07-02-2022 BASO # 0.1 103/ul Normal 0.0-0.1 [facility] Comment on above: Performed By: #### C BC #### [facility] [address] [place] [address] Dr. Jani Haywood Basophils/100 WBC (Bld) 0.7 % Normal 0.2-2.0 [facility] Comment on above: Performed By: #### C BC #### [facility] [address] [place] [address] Dr. Jani Haywood EO # 0.1 103/ul Normal 0.0-0.7 [facility] Comment on above: Performed By: #### C BC #### [facility] [address] [place] [address] Dr. Jani Haywood Eosinophils/100 WBC (Bld) 1.2 % Normal 0.9-7.0 [facility] Comment on above: Performed By: #### C BC #### [facility] [address] [place] [address] Dr. Jani Haywood Erythrocyte distribution width (RBC) [Ratio] 13.7 % Normal 11.0-15.0 [facility] Comment on above: Performed By: #### C BC #### [facility] [address] [place] [address] Dr. Jani Haywood Hematocrit (Bld) [Volume fraction] 37.9 % Normal 36.0-48.0 [facility] Comment on above: Performed By: #### C BC #### [facility] [address] [place] [address] Dr. Jani Haywood Hemoglobin (Bld) [Mass/Vol] 12.6 g/dL Normal 12.0-16.0 [facility] Comment on above: Performed By: #### C BC #### [facility] [address] [place] [address] Dr. Jani Haywood IG # 0.02 10e3/ul Normal 0.00-0.03 [facility] Comment on above: Performed By: #### C BC #### [facility] [address] [place] [address] Dr. Jani Haywood IG % 0.3 % Normal 0.0-0.5 [facility] Comment on above: Performed By: #### C BC #### [facility] [address] [place] [address] Dr. Jani Haywood LYMPH # 1.6 103/ul Normal 1.2-3.8 [facility] Comment on above: Performed By: #### C BC #### [facility] [address] [place] [address] Dr. Jani Haywood Lymphocytes/100 WBC (Bld) 21.5 % Normal 20.5-60.0 [facility] Comment on above: Performed By: #### C BC #### [facility] [address] [place] [address] Dr. Jani Haywood MANUAL DIFF REQ NO Normal [facility] Comment on above: Performed By: #### C BC #### [facility] [address] [place] [address] Dr. Jani Haywood MCH (RBC) [Entitic mass] 30.4 pg Normal 26.7-34.0 [facility] Comment on above: Performed By: #### C BC #### [facility] [address] [place] [address] Dr. Jani Haywood MCHC (RBC) [Mass/Vol] 33.2 g/dL Normal 29.9-35.2 [facility] Comment on above: Performed By: #### C BC #### [facility] [address] [place] [address] Dr. Jani Haywood MCV (RBC) [Entitic vol] 91.3 fL Normal 81.0-99.0 [facility] Comment on above: Performed By: #### C BC #### [facility] [address] [place] [address] Dr. Jani Haywood MONO # 0.5 103/ul Normal 0.3-0.8 [facility] Comment on above: Performed By: #### C BC #### [facility] [address] [place] [address] Dr. Jani Haywood Monocytes/100 WBC (Bld) 6.6 % Normal 1.7-12.0 [facility] Comment on above: Performed By: #### C BC #### [facility] [address] [place] [address] Dr. Jani Haywood NEUT # 5.1 103/ul Normal 1.4-6.5 [facility] Comment on above: Performed By: #### C BC #### [facility] [address] [place] [address] Dr. Jani Haywood Neutrophils/100 WBC (Bld) 69.7 % Normal 43.0-75.0 [facility] Comment on above: Performed By: #### C BC #### [facility] [address] [place] [address] Dr. Jani Haywood Platelet mean volume (Bld) [Entitic vol] 10.2 fL Normal 9.5-13.5 [facility] Comment on above: Performed By: #### C BC #### [facility] [address] [place] [address] Dr. Jani Haywood PLT 281 103/ul Normal 150-450 [facility] Comment on above: Performed By: #### C BC #### [facility] [address] [place] [address] Dr. Jani Haywood RBC 4.15 106/ul Critically low 4.20-5.40 [facility] Comment on above: Performed By: #### C BC #### [facility] [address] [address] [address] Jani Haywood WBC 7.3 103/ul Normal 4.0-11.0 [facility] Comment on above: Performed By: #### C BC #### [facility] [address] [address] [address] Jani Haywood GLYCOHEMOGLOBIN A1Con 2022 ADA RECOMMENDATION SEE BELOW Normal [facility] Comment on above: Result Comment: ADA RECOMMENDED LIMIT 4.0 - 6.0 ADA THERAPEUTIC TARGET < 7.0 ACTION SUGGESTED > 7.0 Performed By: #### A 1C #### [facility] [address] [place] [address] Dr. Jani Haywood Glucose [Mass/Vol] 103 mg/dL Normal [facility] Comment on above: Performed By: #### A 1C #### [facility] [address] [address] [address] Jani Haywood HbA1c (Bld) [Mass fraction] 5.2 % Normal 4.5-6.2 [facility] Comment on above: Performed By: #### A 1C #### [facility] [address] [place] [address] Dr. Jani Haywood CRISTELA BOX TEST PT SEND OUTo n 07-02-2022 SENT TO REF LAB 07/02/2022 Normal [facility] Comment on above: Performed By: #### N BOX #### [facility] [address] [place] [address] Dr. Jani Haywood TYPE AND SCREENon 07-02-2022 TYPE AND SCREEN Negative Normal [facility] Comment on above: Performed By: #### A 1C #### [facility] [address] [place] [address] Dr. Jani Haywood US PREG TVon 06-18-2022 [...] by: RIMMA BATRES Date: 2022-06-18 16:09 Normal [facility] PAP ACOG PANEL 2: 30 to 65on 12-03-2021 . . Normal [facility] Comment on above: Result Comment: Perf ormed at: WB Performed By: #### [id number] #### [facility] [address] [place] [address] Dr. Jani Haywood Age Gdln ACOG Testing 30-65 [facility] Comment on above: Performed By: #### [id number] #### [facility] [address] [place] [address] Dr. Jani Haywood DIAGNOSIS: Comment Normal [facility] Comment on above: Result Comment: NEGA TIVE FOR INTRAEPITHELIAL LESION OR MALIGNANCY. Performed at: WB Performed By: #### [id number] #### [facility] [address] [place] [address] Dr. Jani Haywood HPV Aptima Negative Normal Negative [facility] Comment on above: Result Comment: This nucleic acid amplification test detects fourteen high-risk HPV types (16,18,31,33,35,39,45,51,52,56,58,59,66,68) without differentiation. Performed at: =G Performed By: #### 4 [id number] #### [facility] [address] [address] [address] Jani Haywood Methodology: Comment Normal [facility] Comment on above: Result Comment: This liquid based ThinPrep(R) pap test was screened with the use of an image guided system. Performed at: WB Performed By: #### [id number] #### [facility] [address] [place] [address] Dr. Jani Haywood Note: Comment Normal [facility] Comment on above: Result Comment: The Pap smear is a screening test designed to aid in the detection of premalignant and malignant conditions of the uterine cervix. It is not a diagnostic procedure and should not be used as the sole means of detecting cervical cancer. Both false-positive and false-negative reports do occur. . Performed at: WB Performed By: #### [id number] #### [facility] [address] [address] [address] Jani Haywood Performed by: Comment Normal [facility] Comment on above: Result Comment: Nikki Schwab, Manufacturer'S Service Representative (ASCP) Performed at: WB Performed By: #### [id number] #### [facility] [address] [address] [address] Jani Haywood Specimen adequacy: Comment Normal [facility] Comment on above: Result Comment: Sati sfactory for evaluation. Endocervical and/or squamous metaplastic cells (endocervical component) are present. Performed at: WB Performed By: #### [id number] #### [facility] [address] [address] [address] Jani Haywood Vital Signs Date Time Vital Sign Value Performing Clinician Facility 07-30-2023 09:32-0500 Body mass index (BMI) [Ratio] 25.88 kg/m2 [facility] Work Phone: [facility] 07-30-2023 09:32-0500 Body weight 66.28 kg [facility] [employer] Work Phone: [facility] 07-30-2023 09:32-0500 Diastolic blood pressure 60 mm[Hg] Ivan Pollo DO Work Phone: [facility] 07-30-2023 09:32-0500 Systolic blood pressure 100 mm[Hg] Ivan Pollo [employer] Work Phone: [facility] 07-23-2023 14:33-0500 Body mass index (BMI) [Ratio] 26.24 kg/m2 Terese REYES Work Phone: [facility] 07-23-2023 14:33-0500 Body weight 67.19 kg Terese REYES Work Phone: [facility] 07-23-2023 14:33-0500 Diastolic blood pressure 68 mm[Hg] Terese REYES Work Phone: [facility] 07-23-2023 14:33-0500 Systolic blood pressure 110 mm[Hg] Terese REYES Work Phone: [facility] 11-24-2021 14:10-0400 Body height 160.02 cm Megan Oconnor Other [employer] Other 11-24-2021 14:10-0400 Body mass index (BMI) [Ratio] 20.55 kg/m2 Megan Oconnor Other [employer] Other 11-24-2021 14:10-0400 Body temperature 96.9 [degF] Megan Oconnor Other [employer] Other 11-24-2021 14:10-0400 Body weight 52.62 kg Megan Oconnor Other [employer] Other 11-24-2021 14:10-0400 SaO2% (BldA) [Mass fraction] 97 % Megan Oconnor Other [employer] Other Encounters Encounter Date Encounter Type Care Provider Facility Start: 07-30-2023 End: 07-30-2023 ambulatory IVAN POLLO Not Available Start: 07-30-2023 End: 07-30-2023 flow sheet Ivan Pollo DO Work Phone: [facility] Comment on above: Third trimester preg luan; Small for gestational age (SGA) Start: 07-23-2023 End: 07-23-2023 ambulatory TERESE AGUILA Not Available Start: 07-23-2023 End: 07-23-2023 flow sheet Terese REYES Work Phone: [facility] Comment on above: Low blood pressure r eading; Dizziness; Feeling faint; Third trimester Start: 07-21-2023 End: 07-21-2023 ambulatory YULISSA JAIME Facility:[facility] Start: 07-15-2023 End: 07-15-2023 ambulatory TERESE AGUILA Not Available Start: 07-01-2023 End: 07-01-2023 ambulatory IVAN POLLO Not Available Start: 06-18-2023 End: 06-18-2023 ambulatory TERESE AGUILA Not Available Start: 05-20-2023 End: 05-20-2023 ambulatory IVAN POLLO Not Available Start: 10-10-2022 Telephone encounter Leo [facility] [place] Comment on above: Hedis Specialist - O ther Start: 10-09-2022 ambulatory Yulissa WOOD Work Phone: Audiology Start: 09-24-2022 End: 09-24-2022 ambulatory RIMMA STERLING Facility:[facility] Start: 09-24-2022 End: 09-24-2022 Patient encounter procedure Rimma Sterling PAAnuradha Work Phone: Otolaryngology Comment on above: Cochlear implant in place (Primary Dx); Sensorineural hearing loss, asymmetrical; Sensorineural hearing loss, bilateral Start: 07-29-2022 End: 07-30-[address] ARIEL RAJAN Facility:[facility] Start: 07-18-2022 End: 07-18-[address] ROSA CARTER Facility:[facility] Start: 07-17-2022 Encounter for preprocedural laboratory examination DR ROSA CARTER [facility] Start: 07-16-2022 End: 07-17-[address] ROSA CARTER Facility:[facility] Start: 07-16-2022 End: 07-17-2022 Encounter for preprocedural laboratory examination DR ROSA CARTER Facility:[facility] Start: 07-02-2022 End: 07-03-[address] ROSA CARTER Facility:[facility] Start: 06-18-2022 End: 06-19-[address] ROSA CARTER Facility:[facility] Start: 11-27-2021 End: 11-27-[address] ROSA CARTER Facility:[facility] Start: 11-24-2021 End: 11-24-2021 ambulatory Megan Oconnor Other [employer] Other Start: 11-24-2021 Office outpatient vi sit 25 minutes Megan Ocnonor [facility] Procedures Date Procedure [...] (3 - PPSV23 if available, else PCV20) [facility] Start: 04-22-2028 Screening for malign ant neoplasm of cervix [facility] Start: 04-26-2024 End: 04-26-2024 Patient encounter procedure 04/26/2024 9:00 AM EST Office Visit [facility] [address] [place] [id number] Ivan Abad, DO [address] [place] [address] [facility] Start: 08-13-2023 End: 08-13-2023 Patient encounter procedure 08/13/2023 11:20 AM EST Routine [facility] [address] [place] [id number] Ivan Abad, DO [address] [place] [address] [facility] Start: 07-30-2023 End: 07-30-2024 US biophysical profile w non stress test US biophysical profile w non stress test Imaging Routine Small for gestational age (SGA) Expected: 07/30/2023 (Approximate), Expires: 07/30/2024 [facility] Work Phone: Comment on above: Expected: 07/30/2023 (Approximate), Expires: 07/30/2024 Start: 07-30-2023 End: 07-30-2023 Patient encounter procedure 07/30/2023 9:20 AM EST Routine [facility] [address] [facility] [place] [id number] Ivan Abad, DO [address] [place], [place] [id number] [facility] Start: 07-23-2023 End: 07-23-2023 Professional / ancillary services management 07/23/2023 3:00 PM EST Ancillary Procedure [facility] [address] [place] [phone] [facility] Start: 02-20-2023 Influenza vaccination [facility] Start: 06-22-2022 DEPRESSION ASSESSMENT DEPRESSION ASS ESSMENT [facility] Start: 10-20-2021 COVID-19 VACCINE (3 - Booster for Pfizer series) COVID-19 VACCINE (3 - Booster for Pfizer series) [facility] Start: 2019 Mammography MAMMOGRAM [facility] Start: 2019 Screening for malign ant neoplasm of breast Mammogram [facility] Start: 11-17-2009 HPV TESTING HPV TESTING [facility] Start: 11-17-2000 PAP TESTING PAP TESTING [facility] Start: 11-17-1998 Urine microalbumin profile DTAP,TDAP,TD (1 - Tdap) [facility] Start: 11-17-1997 HEPATITIS C SCREENING HEPATITIS C SC JOSE [facility] Start: 11-17-1997 HIV SCREENING HIV SCREENING [facility] Start: 1980 HEPATITIS B (1 of 3 - 3-dose series) HEPATITIS B (1 of 3 - 3-dose series) [facility] Immunizations Immunization Date Immunization Notes Care Provider Fa cility 03-22-2020 influenza virus vacc ine, unspecified formulation Terese REYES Work Phone: [facility] 08-13-2017 pneumococcal polysaccharide vaccine, 23 valent Rimma Sterling PA-C Work Phone: [facility] 08-10-2014 pneumococcal conjuga te vaccine, 13 valent Rimma Sterling PA-C Work Phone: [facility] Payers Date Payer Category Payer Unknown [id number] 2022 Unknown [id number] 1980 Unknown [id number] 2.16.84 [id number] 1979 Unknown [id number] 2.16.84 [id number] 1979 Unknown [id number] 2.16.84 [id number] 1979 Unknown [id number] 2.16.84 [id number] 1979 Unknown [id number] 2.16.84 0.1.298466.3.579.2.593 1979 Unknown [id number] 2.16.84 0.1.979086.3.579.2.593 1979 Unknown [id number] 2.16.84 [id number] 1979 Unknown [id number] 2.16.84 0.1.126320.3.579.2.1259 1979 Unknown [id number] 2.16.84 [id number] 1979 Unknown [id number] 2.16.84 0.1.140085.3.579.2.1259 1979 Unknown [id number] 2.16.84 [id number] 1979 Unknown [id number] 2.16.840 .[id number] 1979 Unknown [id number] 2.16.840 .[id number] 1960 [facility] [id number] Unknown [id number] 2.16.84 [id number] Social History Date Type Detail Facility Start: 03-16-2023 Sex Assigned At [employer] Other Start: 09-24-2022 End: 03-16-2023 Tobacco smoking status NHIS Never smoked tobacco [facility] Start: 09-24-2022 End: 03-16-2023 Tobacco use and exposure Smokeless tobacco non-user [facility] Start: 09-24-2022 Alcohol intake Current non-drinker of alcohol (finding) [facility] Start: 1980 Sex Assigned At Female [facility] Start: 07-23-2023 End: 07-30-2023 Alcohol intake Ex-drinker (finding) [facility] Start: 03-16-2023 History of Social function [facility] Start: 04-22-2023 Alcohol Comment occasional alcohol use, Caffeine intake: none [facility] Start: 12-25-2022 [facility] Start: 01-21-2023 Gender identity Identifies as female gender (finding) [facility] Start: 01-21-2023 Sexual orientation Heterosexual (finding) [facility] Medical Equipment Procedure Code Equipment Code Equipment Original Text Equipment Identifier Dates Sza-[id number]-Kind Implant - [id number] Start: 09-02-2017 Comment on above: Description: [...] Ivan Abad DO documented in this encounter [facility] 07-23-2023 History of Presen t illness [...] of: ERIC Smallwood documented in this encounter [facility] 07-21-2023 Note HNO ID: [id number] Author: YULISSA JAIME AUD Service: ? Author Type: Marketing Segment Manager Type: Progress Notes Filed: 07/21/2023 08:47 Note Text: [facility] [place] [facility] COCHLEAR IMPLANT ADULT PROGRAMMING Name: Amy ALFARO [facility]#: [id number] Date of Service: July 21, 2023 Date of : 1980 Age: [age] year old COCHLEAR IMPLANT INFORMATION (see below for all device details) Updated: July 21, 2023 Right ear: Phonak Audeo [employer] Hearing Aid that was fit at an outside facility (November 2021) and is being managed by that facility. Left ear: External Processor: Cochlear servtags [id number] (Nucleus 8; upgraded around January 2023) Processor SN: [id number] Processor ([id number]) SN: [id number] Magnet strength: 2 Internal Device: Cochlear [id number] Profile with Slim Modiolar Electrode Array Internal Device SN: [id number] Inactive electrodes: None Surgery Date: 09/02/2017 Initial [...] 6; Sensitivity: 12) before programming. See the [employer] Audiogram for obtained thresholds. Speech perception testing was completed at 60 camera operator using recorded stimuli in the sound field at 0 degrees azimuth. NOTE: The contralateral ear was not plugged and muffed during testing. The following testing and results were obtained: Fcduerbdz-Jmdbcaj-Jokjhgbsa Words (CNC) Test Condition List # Phonemes [...] hours. * Revie (more content not included)... [facility] 10-10-2022 Miscellaneous Notes Director Of Business Operations: Katerina Mina Patient: Hasmukh Alfaro 1980 Clinic: [facility] Marketing Segment Manager: Dr. Yulissa Jaime Appointment Length: 45 Minutes What are you looking to accomplish?: I d like to learn more about the Nucleus 8 and the process of upgrading Recipient's Stated Reason for Upgrading Clinic Request - Marketing Segment Manager recommended it [employer] - Processor more [...] steps are Acquisition Methods Recipient will receive Vxp-ih-Jwvoba cost estimate once order placed Next Steps If recipient decides to move forward with pursuing a Nucleus 8 upgrade and provides us with the necessary order information, we will start an order on their behalf. You will hear from Cochlear s Cocoa [employer] Clean[employer] team, via email/DocuSign to gain your approval or regarding an LMN to allow this patient to move forward in the process. Following completion of the upgrade process, I will invite the recipient to schedule time for a complimentary onboarding with our [employer] team so they can begin to maximize the use of their new Cochlear equipment. documented in this encounter [facility] 10-09-2022 Note HNO ID: [id number] Author: ISRAEL Champion Service: ? Author Type: Marketing Segment Manager Type: Progress Notes Filed: 10/09/2022 12:58 PM [...] any questions. Upgrade Consultation Clinic Patient Report Director Of Business Operations: Katerina Mina Patient: Hasmukh Alfaro 1980 Clinic: [facility] Marketing Segment Manager: Dr. Yulissa Jaime Appointment Length: 45 Minutes What are you looking to accomplish?: I?d like to learn more about the Nucleus 8 and the process of upgrading Recipient's Stated Reason for Upgrading ? Clinic Request - Marketing Segment Manager recommended it ? [employer] - Processor [...] are Acquisition Methods ? Recipient will receive Awj-rr-Iwujjj cost estimate once order placed Next Steps ? If recipient decides to move forward with pursuing a Nucleus 8 upgrade and provides us with the necessary order information, we will start an order on their behalf. You will hear from Cochlear?s Cocoa Bean Cleaner team, via email/DocuSign to gain your approval or regarding an LMN to allow this patient to move forward in the process. Following completion of the upgrade process, I will invite the recipient to schedule time for a complimentary onboarding with our [employer] team so they can begin to maximize the use of their new Cochlear equipment. Warm Regards, Eloisa Vazquez, [facility]A Clinical Marketing Segment Manager [facility] 10-09-2022 History of Presen t illness [...] any questions. Upgrade Consultation Clinic Patient Report Director Of Business Operations: Katerina Mina Patient: Hasmukh Alfaro 1980 Clinic: [facility] Marketing Segment Manager: Dr. Yulissa Jaime Appointment Length: 45 Minutes What are you looking to accomplish?: I d like to learn more about the Nucleus 8 and the process of upgrading Recipient's Stated Reason for Upgrading Clinic Request - Marketing Segment Manager recommended it [employer] - Processor more [...] steps are Acquisition Methods Recipient will receive Cav-la-Eivebq cost estimate once order placed Next Steps If recipient decides to move forward with pursuing a Nucleus 8 upgrade and provides us with the necessary order information, we will start an order on their behalf. You will hear from Cochlear s Cocoa Bean Clean[employer] team, via email/DocuSign to gain your approval or regarding an LMN to allow this patient to move forward in the process. Following completion of the upgrade process, I will invite the recipient to schedule time for a complimentary onboarding with our [employer] team so they can begin to maximize the use of their new Cochlear equipment. Warm Regards, Eloisa Vazquez, GIOVANNY/A Clinical Marketing Segment Manager documented in this encounter [facility] 09-24-2022 Note HNO ID: [id number] Author: Rimma Sterling PA-C Service: ? Author Type: Physician Court Bailiff Or Sheriff Type: Progress Notes Filed: 09/24/2022 9:53 AM Note Text: History of Present Illness Ms. AMY ALFARO is a 41 year old year old female presenting for: referred by SELF And is a patient of DO Abel Card DO [address] [place] [address] Communication will be via the electronic record [...] (FLONASE) 50 mcg/actuation nasal spray Use 1 [place] in each nostril as needed. multivitamin (DAILY [...] Medical Decision Making Level: 2 - Straightforward [facility] 09-24-2022 Instructions Rimma Sterling PA-C - 09/24/2022 9:[address] Audra Umanzor use his name on paperwork documented in this encounter [facility] 09-24-2022 History of Presen t illness Narrative History of Present Illness Ms. AMY ALFARO is a 41 year old year old female presenting for: referred by SELF And is a patient of DO Abel Card DO [facility] [place] [address] Communication will be via the electronic record [...] (FLONASE) 50 mcg/actuation nasal spray Use 1 [place] in each nostril as needed. multivitamin (DAILY [...] 2 - Straightforward documented in this encounter [facility] 07-18-2022 Note EXAMINATION: US PELV IS HISTORY: Surgical procedure COMPARISON: Ultrasound less than 14 weeks 07/16/2022 TECHNIQUE: Transabdominal and transvaginal sonographic examination. FINDINGS: Final images show an empty endometrial cavity. IMPRESSION: 1. No appreciable products of conception within endometrial cavity following dilation and curettage. Electronically authenticated by: ALEXI BRANCH Date: 2022-07-18 08:21 [facility] 11-24-2021 Evaluation note Encounter Date Diagnosis [...] Fungal rash of trunk (ICD-10 - B36.9) [employer] Other Evaluation note* Diagnosis Cochlear implant in place- Primary Other postprocedural status Sensorineural hearing loss, asymmetrical Sensorineural hearing loss, bilateral [facility] Low blood pressure [...] Surgical History cochlear implant Surgical History D&C [employer] Other Summary Purpose Family History No Family History Records FoundNo Family History Records FoundNo Family History Records Found Advance Directives No Advanced Directives Records FoundNo Advanced Directives Records FoundNo Advanced Directives Records Found Additional Source Comments REASON FOR VISIT (unrecogniz ed section and content) Reason Comments Hearing Loss New. Self referral. CI LT side. Last audio 03/18/22. Denies otalgia and otorrhea. Reason Comments Hedis Specialist - Other Reason Comments Dizziness Hypotension Reason Comments Routine Visit INFORMATION SOURCE (unrecogn ized section and content) DATE CREATED AUTHOR 07/30/2022 [facility] DATE CREATED AUTHOR AUTHOR'S ORGANIZ ATION 07/22/2023 [facility] DATE CREATED AUTHOR AUTHOR'S ORGANIZ ATION 07/31/2023 [facility] dical Specialists EPIC Source Comments (unrecognize d section and content) In the event this informatio n is protected by the Federal Confidentiality of Alcohol and Drug Abuse Patient Records regulations: The Federal rules restrict any use of the information to criminally investigate or prosecute any alcohol or drug abuse patient.[facility] CenterIn the event this information is protected by the Federal Confidentiality of Alcohol and Drug Abuse Patient Records regulations: The Federal rules restrict any use of the information to criminally investigate or prosecute any alcohol or drug abuse patient.[facility] CenterIn the event this information is protected by the Federal Confidentiality of Alcohol and Drug Abuse Patient Records regulations: The Federal rules restrict any use of the information to criminally investigate or prosecute any alcohol or drug abuse patient.[facility] Care Teams (unrecognized sec tion and content) Airset Caster Relationship Specialty Start Date End Date Abel Sun PCP - General Family Medicine 03/15/14 Airset Caster Relationship Specialty Start Date End Date Abel Sun PCP - General Family Medicine 03/15/14 Airset Caster Relationship Specialty Start Date End Date Abel Sun PCP - General Family Medicine 03/15/14 Airset Caster Relationship Specialty Start Date End Date Ariel Rajan MD [address] [place] [id number] PCP - General 02/16/23 Airset Caster Relationship Specialty Start Date End Date Ariel Rajan MD [address] [place] [address] PCP - General 02/16/23 FOR RECORDS PERTAINING [...] BE BASED ON THE PRIMARY CLINICAL RECORDS. [facility] provides no warranty or guarantee of the accuracy or completeness of information in this document.
[2023-08-14 08:08] VITALS: BP 106/63; PULSE 75
== END 2023-08-14 08:30 | disposition home or self-care (01) ==
LOC: FBCO 07:59 → FBC 08:01
PROVIDERS: PCP Family Medicine; Visit Provider Obstetrics & Gynecology
DX: O36.5930 Maternal care for other known or suspected poor fetal growth, third trimester, not applicable or unspecified (principal)
CPT/HCPCS: 59025

== ENCOUNTER 2023-08-18 07:01 | Outpatient (OUT) | payer OTHER, SELFPAY ==
--- OUTSIDE RECORDS SUMMARY | 2023-08-18 07:05 | XMS_ITS | CCD ---
Author Name Unknown Address [address] [place] [address] Organization [facility] Care Team Providers Care Purchasing Coordinator Name Role Phone Megan Oconnor Unavailable ANDRES, [...] Unavailab Ariel Rich MD Primary Care Provider [phone] TERESE AGUILA Attending Unavailable IVAN ABAD Attending Unavailable TERESE AGUILA Attending Unavailable TERESE AGUILA Attending Unavailable IVAN ABAD Attending Unavailable IVAN ABAD Attending Unavailable Allergies Allergy Classification Reported Allergen(s) Allergy Type Date of Onset Reaction(s) Facility (4 sources) Seasonal allergy; Translations: [SEASONAL ALLERGIES] Allergy to substance 4 Cough [facility] (4 sources) Octacosanol Drug Allergy 4 Cough [facility] (4 sources) Other Propensity to adverse reactions 3 Unknown [facility] Medications Current Medications Medication Drug Class(es) Dates Sig (Normalized) Sig (Original) [id number] actuat albuterol 0.09 mg/actuat metered dose [...] on above: Take 1 capsule by mo [facility] as needed. fluticasone propionate 0.05 mg/actuat metered dose nasal spray (3 sources) Corticosteroid fluticasone (FLONASE) 50 mcg/actuation nasal spray Indications: Bilateral sensorineural hearing loss , Autoimmune disorder of inner ear Use 1 [place] in each nostril as needed. 0 Active Comment on above: Use 1 [place] in each nostril as needed. LOW-DOSE ASPIRIN PO (2 sources) Start: 04-02-2023 End: 07-23-2023 LOW-DOSE ASPIRIN PO multivitamin (DAILY MULTIPLE) tablet (3 sources) take 1 tablet by mouth once daily multivitamin (DAILY MULTIPLE) tablet Take 1 tablet by mouth once daily. 0 Active Comment on above: Take 1 tablet by [facility] once daily. predniSONE 10 mg oral [...] low weight; and growth retardation (2 sources) Wfbjx-wak-vfxpj baby; Translations: [ small for gestational age, [...] UA Negative Negative - 4(70) +++ mg/dL [facility] Blood, UA Positive Negative - 50 Bobby/mcL [facility] Comment on above: trace-intact Clarity, UA Clear [facility] re Color, UA Yellow [facility] e Glucose, UA Negative Negative - 1999(110) ++++ mg/dL [facility] Interpretation and review of laboratory results Abnormal [facility] Ketones, UA Negative Negative - 160(16) ++++ mg/dL [facility] Leukocytes, UA Positive Negative - 500+++ Suzette/mcL [facility] Comment on above: small Nitrite, UA Negative Negative - Positive [facility] pH, UA 6.0 5 - 9 [facility] Protein, UA Negative Negative - 1999(20) ++++ mg/dL [facility] Spec Grav, UA 1.010 1 - 1.03 [facility] Urobilinogen, UA 0.2 0.2 - 12 mg/dL [facility] Urinalysis macro (dipstick) panel (U)on 07-23-2023 Bilirubin, UA Negative Negative - 4(70) +++ mg/dL [facility] Blood, UA Negative Negative - 50 Bobby/mcL [facility] Clarity, UA Clear [facility] Color, UA Yellow [facility] Glucose, UA Negative Negative - 1999(110) ++++ mg/dL [facility] Interpretation and review of laboratory results Abnormal [facility] Ketones, UA Negative Negative - 160(16) ++++ mg/dL [facility] Leukocytes, UA Positive Negative - 500+++ Suzette/mcL [facility] Comment on above: small Nitrite, UA Negative Negative - Positive [facility] pH, UA 7.0 5 - 9 [facility] Protein, UA Negative Negative - 1999(20) ++++ mg/dL [facility] Spec Grav, UA 1.015 1 - 1.03 [facility] Urobilinogen, UA 0.2 0.2 - 12 mg/dL [facility]-21-2023 CNOV Office Visit (MALISSAUCR ) AMY ALFARO ([id number]) 1980 F Date Time Provider Department 07/21/23 7:30 AM YULISSA JAIME During your visit today, we recorded the following information about you: Yulissa Jaime AUD 07/21/2023 8:47 AM Signed [facility] [place] [facility] COCHLEAR IMPLANT ADULT PROGRAMMING Name: Amy ALFARO CC#: [id number] Date of Service: July 21, 2023 Date of : 1980 Age: [age] year old COCHLEAR IMPLANT INFORMATION (see below for all device details) Updated: July 21, 2023 Right ear: Phonak Audeo RITE Hearing Aid that was fit at an outside facility (November 2021) and is being managed by that facility. Left ear: External Processor: [employer] [id number] (Nucleus 8; upgraded around January 2023) Processor SN: [id number] Processor ([id number]) SN: [id number] Magnet strength: 2 Internal Device: Cochlear [id number] Profile with Slim Modiolar Electrode Array Internal Device SN: [id number] Inactive electrodes: None Surgery Date: 09/02/2017 Initial [...] 6; Sensitivity: 12) before programming. See the RunMyProcess Audiogram for obtained thresholds. Speech perception testing was completed at 60 exchange engineer using recorded stimuli in the sound field at 0 degrees azimuth. NOTE: The contralateral ear was not plugged and muffed during testing. The following testing and results were obtained: Thqahagfv-Eenpqqy-Qcn sonant Words (CNC) Test Condition List # [...] etc. Shoul (more content not included)... Normal [facility] 10-10-2022 JEANN Telephone (HNQ) DOMINICAMY Shravan ([id number]) 1980 F Date Time Provider Department 10/10/22 LEO ATKINSON During your visit today, we recorded the following information about you: Leo Huitrononnell 10/10/2022 3:52 PM Signed Lining Vamper: Katerina Mina Patient: Hasmukh Alfaro 1980 Clinic: [facility] Pinion Polisher: Dr. Yulissa Jaime Appointment Length: 45 Minutes What are you looking to accomplish?: I?d like to learn more about the Nucleus 8 and the process of upgrading Recipient's Stated Reason for Upgrading ? Clinic Request - Pinion Polisher recommended it ? [employer] - Processor [...] are Acquisition Methods ? Recipient will receive Nbg-nf-Mdphfj cost estimate once order placed Next Steps ? If recipient decides to move forward with pursuing a Nucleus 8 upgrade and provides us with the necessary order information, we will start an order on their behalf. 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 - fluticasone (FLONASE) 50 mcg/actuation nasal spray Use 1 [place] in each nostril as needed. - multivitamin [...] Encounter Status:Closed by LEO ATKINSON on 10/10/22 [facility] 09-24-2022 CNOV Office Visit (OTOLCR ) AMY ALFARO ([id number]) 1980 F Date Time Provider Department 09/24/22 9:30 AM RIMMA STERLING OTVIDAL During your visit today, we recorded the following information about you: Rimma Sterling PA-C 09/24/2022 9:53 AM Signed History of Present Illness Ms. AMY ALFARO is a 41 year old year old female presenting for: referred by SELF And is a patient of DO Abel Card DO [address] [place] [address] Communication will be via the electronic record [...] (FLONASE) 50 mcg/actuation nasal spray Use 1 [place] in each nostril as needed. multivitamin (DAILY [...] ALLERGIES 1 (more content not included)... Normal [facility] CBC AUTO DIFFon 07-29-2022 BASO # 0.0 103/ul Normal 0.0-0.1 [facility] Comment on above: Performed By: #### C BC #### [facility] [address] [place] [address] Dr. Jani Haywood Basophils/100 WBC (Bld) 0.6 % Normal 0.2-2.0 [facility] Comment on above: Performed By: #### C BC #### [facility] [address] [place] [address] Dr. Jani Haywood EO # 0.1 103/ul Normal 0.0-0.7 [facility] Comment on above: Performed By: #### C BC #### [facility] [address] [place] [address] Dr. Jani Haywood Eosinophils/100 WBC (Bld) 2.5 % Normal 0.9-7.0 [facility] Comment on above: Performed By: #### C BC #### [facility] [address] [place] [address] Dr. Jani Haywood Erythrocyte distribution width (RBC) [Ratio] 13.7 % Normal 11.0-15.0 [facility] Comment on above: Performed By: #### C BC #### [facility] [address] [place] [address] Dr. Jani Haywood Hematocrit (Bld) [Volume fraction] 40.3 % Normal 36.0-48.0 [facility] Comment on above: Performed By: #### C BC #### [facility] [address] [place] [address] Dr. Jani Haywood Hemoglobin (Bld) [Mass/Vol] 12.7 g/dL Normal 12.0-16.0 [facility] Comment on above: Performed By: #### C BC #### [facility] [address] [place] [address] Dr. Jani Haywood IG # 0.01 10e3/ul Normal 0.00-0.03 [facility] Comment on above: Performed By: #### C BC #### [facility] [address] [place] [address] Dr. Jani Haywood IG % 0.2 % Normal 0.0-0.5 [facility] Comment on above: Performed By: #### C BC #### [facility] [address] [place] [address] Dr. Jani Haywood LYMPH # 1.8 103/ul Normal 1.2-3.8 [facility] Comment on above: Performed By: #### C BC #### [facility] [address] [place] [address] Dr. Jani Haywood Lymphocytes/100 WBC (Bld) 35.2 % Normal 20.5-60.0 [facility] Comment on above: Performed By: #### C BC #### [facility] [address] [place] [address] Dr. Jani Haywood MANUAL DIFF REQ NO Normal [facility] Comment on above: Performed By: #### C BC #### [facility] [address] [place] [address] Dr. Jani Haywood MCH (RBC) [Entitic mass] 30.5 pg Normal 26.7-34.0 [facility] Comment on above: Performed By: #### C BC #### [facility] [address] [place] [address] Dr. Jani Haywood MCHC (RBC) [Mass/Vol] 31.5 g/dL Normal 29.9-35.2 [facility] Comment on above: Performed By: #### C BC #### [facility] [address] [place] [address] Dr. Jani Haywood MCV (RBC) [Entitic vol] 96.9 fL Normal 81.0-99.0 [facility] Comment on above: Performed By: #### C BC #### [facility] [address] [place] [address] Dr. Jani Haywood MONO # 0.4 103/ul Normal 0.3-0.8 [facility] Comment on above: Performed By: #### C BC #### [facility] [address] [place] [address] Dr. Jani Haywood Monocytes/100 WBC (Bld) 8.1 % Normal 1.7-12.0 [facility] Comment on above: Performed By: #### C BC #### [facility] [address] [place] [address] Dr. Jani Haywood NEUT # 2.8 103/ul Normal 1.4-6.5 [facility] Comment on above: Performed By: #### C BC #### [facility] [address] [address] [address] Jani Haywood Neutrophils/100 WBC (Bld) 53.4 % Normal 43.0-75.0 [facility] Comment on above: Performed By: #### C BC #### [facility] [address] [address] [address] Jani Haywood Platelet mean volume (Bld) [Entitic vol] 10.0 fL Normal 9.5-13.5 [facility] Comment on above: Performed By: #### C BC #### [facility] [address] [address] [address] Jani Haywood PLT 271 103/ul Normal 150-450 [facility] Comment on above: Performed By: #### C BC #### [facility] [address] [place] [address] Dr. Jani Haywood RBC 4.16 106/ul Critically low 4.20-5.40 [facility] Comment on above: Performed By: #### C BC #### [facility] [address] [place] [address] Dr. Jani Haywood WBC 5.2 103/ul Normal 4.0-11.0 [facility] Comment on above: Performed By: #### C BC #### [facility] [address] [place] [address] Dr. Jani Haywood IRONon 07-29-2022 Iron [Mass/Vol] 64.0 ug/dL Normal 50.0-170.0 [facility] Comment on above: Performed By: #### A 1C #### [facility] [address] [place] [address] Dr. Jani Haywood PROF 14(COMP METB)on 023 Albumin [Mass/Vol] 3.5 g/dL Normal 3.4-5.0 [facility] Comment on above: Performed By: #### C MP #### [facility] [address] [place] [address] Dr. Jani Haywood Albumin/Globulin [Mass ratio] 0.9 {ratio} Normal [facility] Comment on above: Performed By: #### C MP #### [facility] [address] [address] [address] Jani Haywood ALP [Catalytic activity/Vol] 73 U/L Normal 46-116 [facility] Comment on above: Performed By: #### C MP #### [facility] [address] [address] [address] Jani Haywood ALT [Catalytic activity/Vol] 12 U/L Critically low 14-59 [facility] Comment on above: Performed By: #### C MP #### [facility] [address] [address] [address] Jani Haywood Anion gap [Moles/Vol] 11.0 mmol/L Normal [facility] Comment on above: Performed By: #### C MP #### [facility] [address] [place] [address] Dr. Jani Haywood AST [Catalytic activity/Vol] 13 U/L Critically low 15-37 [facility] Comment on above: Performed By: #### C MP #### [facility] [address] [address] [address] Jani Haywood Bilirubin [Mass/Vol] 0.5 mg/dL Normal 0.2-1.0 [facility] Comment on above: Performed By: #### C MP #### [facility] [address] [place] [address] Dr. Jani Haywood Calcium [Mass/Vol] 8.6 mg/dL Normal 8.5-10.1 [facility] Comment on above: Performed By: #### C MP #### [facility] [address] [address] [address] Jani Haywood Chloride [Moles/Vol] 105 mmol/L Normal 98-107 [facility] Comment on above: Performed By: #### C MP #### [facility] [address] [address] [address] Jani Haywood CO2 [Moles/Vol] 28.8 mmol/L Normal 21.0-32.0 [facility] Comment on above: Performed By: #### C MP #### [facility] [address] [address] [address] Jani Haywood Creatinine [Mass/Vol] 0.87 mg/dL Normal 0.55-1.02 [facility] Comment on above: Performed By: #### C MP #### [facility] [address] [address] [address] Jani Haywood EGFR-AF DJIBOUTIAN >60 Normal >=60 [facility] Comment on above: Performed By: #### C MP #### [facility] [address] [address] [address] Jani Haywood EGFR-NON AF DJIBOUTIAN >60 Normal >=60 [facility] Comment on above: Performed By: #### C MP #### [facility] [address] [place] [address] Dr. Jani Haywood Globulin (S) [Mass/Vol] 3.7 g/dL Normal [facility] Comment on above: Performed By: #### C MP #### [facility] [address] [place] [address] Dr. Jani Haywood Glucose [Mass/Vol] 95 mg/dL Normal 74-106 [facility] Comment on above: Performed By: #### C MP #### [facility] [address] [address] [address] Jani Haywood Potassium [Moles/Vol] 3.8 mmol/L Normal 3.5-5.1 [facility] Comment on above: Performed By: #### C MP #### [facility] [address] [address] [address] Jani Haywood Protein [Mass/Vol] 7.2 g/dL Normal 6.4-8.2 [facility] Comment on above: Performed By: #### C MP #### [facility] [address] [place] [address] Dr. Jani Haywood Sodium [Moles/Vol] 141 mmol/L Normal 136-145 [facility] Comment on above: Performed By: #### C MP #### [facility] [address] [place] [address] Dr. Jani Haywood Urea nitrogen [Mass/Vol] 12.0 mg/dL Normal 7.0-18.0 [facility] Comment on above: Performed By: #### C MP #### [facility] [address] [place], [place] [address] Dr. Jani Haywood Urea nitrogen/Creatinine [Mass ratio] 13.8 mg/mg Normal [facility] Comment on above: Performed By: #### C MP #### [facility] [address] [place], [place] [address] Dr. Jani Haywood Covid-19 PCR ([facility])on 06-23 SARS-CoV-2 (COVID-19) RNA CAROLE+probe Ql (Unsp spec) Not detected Normal NOT DETECTED [facility] Comment on above: Result Comment: This test is not yet approved or cleared by the [place] FDA. When there are no FDA-approved or cleared tests available, and other criteria are met, FDA can make tests available under an emergency access mechanism called an Emergency Use Authorization (EUA). The EUA for this test is supported by the [place] of Health and Human Service's (HHS's) declaration [...] Performed By: #### C VDTB #### [facility] [address] [place], [place] [address] Dr. Jani Haywood US PREG <14 WKSon [...] was notified of these findings by the beauty school instructor at time of imaging. Electronically authenticated by: ALEXI BRANCH Date: 2022-07-16 13:36 Normal [facility] HEP B SURFACE ANTIGEN SCREEN on 07-03-2022 HBsAg Screen Negative Normal Negative [facility] Comment on above: Performed By: #### A 1C #### [facility] [address] [place] [address] Dr. Jani Haywood HEPATITIS C VIRUS AB W/ REFL EX QUANTon 07-03-2022 HCV AB <0.1 Normal 0.0-0.9 [facility] Comment on above: Performed By: #### H CVPCRR #### [facility] [address] [place] [address] Dr. Jani Haywood Interpretation: Comment Normal [facility] Comment on above: Result Comment: Nega tive Not infected with HCV, unless recent infection is suspected or other evidence exists to indicate HCV infection. Performed By: #### H CVPCRR #### [facility] [address] [place] [address] Dr. Jani Haywood HIV 1 AND 2 WITH REFLEXon HIV Screen 4th Generation wRfx Non-Reactive Normal Non Reactive [facility] Comment on above: Result Comment: HIV Negative HIV-1/HIV-2 antibodies and HIV-1 p24 antigen were NOT detected. There is no laboratory evidence of HIV infection. Performed By: #### H IV12 #### [facility] [address] [place] [address] Dr. Jani Haywood RPR QUANTon 07-03-2022 Rapid Plasma Reagin, Quant Non-Reactive Normal NonRea<1:1 [facility] Comment on above: Result Comment: Plea se Note: This test does not meet current guidelines for screening and diagnosis of syphilis. This test is intended for following treatment response in patients being treated for syphilis infection. To screen for syphilis infection, a reflex cascade that includes both RPR and a treponema-specific assay should be utilized, such as Treponema pallidum (Syphilis) Screening [place] (216470) or Rapid Plasma Reagin (RPR) Test With Reflex to Quantitative RPR and Confirmatory Treponema pallidum Antibodies (613685). Performed By: #### R PRQ #### [facility] [address] [place] [address] Dr. Jani Haywood RUBELLA AB IGGon 07-03-2022 Rubella Antibodies, IgG 2.92 index Normal Immune >0.99 [facility] Comment on above: Result Comment: Non- immune <0.90 Equivocal 0.90 - 0.99 Immune >0.99 Performed By: #### A 1C #### [facility] [address] [place] [address] Dr. Jani Haywood CBC AUTO DIFFon 07-02-2022 BASO # 0.1 103/ul Normal 0.0-0.1 [facility] Comment on above: Performed By: #### C BC #### [facility] [address] [place] [address] Dr. Jani Haywood Basophils/100 WBC (Bld) 0.7 % Normal 0.2-2.0 [facility] Comment on above: Performed By: #### C BC #### [facility] [address] [place] [address] Dr. Jani Haywood EO # 0.1 103/ul Normal 0.0-0.7 [facility] Comment on above: Performed By: #### C BC #### [facility] [address] [place] [address] Dr. Jani Haywood Eosinophils/100 WBC (Bld) 1.2 % Normal 0.9-7.0 [facility] Comment on above: Performed By: #### C BC #### [facility] [address] [place] [address] Dr. Jani Haywood Erythrocyte distribution width (RBC) [Ratio] 13.7 % Normal 11.0-15.0 [facility] Comment on above: Performed By: #### C BC #### [facility] [address] [place] [address] Dr. Jani Haywood Hematocrit (Bld) [Volume fraction] 37.9 % Normal 36.0-48.0 [facility] Comment on above: Performed By: #### C BC #### [facility] [address] [place] [address] Dr. Jani Haywood Hemoglobin (Bld) [Mass/Vol] 12.6 g/dL Normal 12.0-16.0 [facility] Comment on above: Performed By: #### C BC #### [facility] [address] [place] [address] Dr. Jani Haywood IG # 0.02 10e3/ul Normal 0.00-0.03 [facility] Comment on above: Performed By: #### C BC #### [facility] [address] [place] [address] Dr. Jani Haywood IG % 0.3 % Normal 0.0-0.5 [facility] Comment on above: Performed By: #### C BC #### [facility] [address] [place] [address] Dr. Jani Haywood LYMPH # 1.6 103/ul Normal 1.2-3.8 [facility] Comment on above: Performed By: #### C BC #### [facility] [address] [place] [address] Dr. Jani Haywood Lymphocytes/100 WBC (Bld) 21.5 % Normal 20.5-60.0 [facility] Comment on above: Performed By: #### C BC #### [facility] [address] [place] [address] Dr. Jani Haywood MANUAL DIFF REQ NO Normal [facility] Comment on above: Performed By: #### C BC #### [facility] [address] [place] [address] Dr. Jani Haywood MCH (RBC) [Entitic mass] 30.4 pg Normal 26.7-34.0 [facility] Comment on above: Performed By: #### C BC #### [facility] [address] [place] [address] Dr. Jani Haywood MCHC (RBC) [Mass/Vol] 33.2 g/dL Normal 29.9-35.2 [facility] Comment on above: Performed By: #### C BC #### [facility] [address] [place] [address] Dr. Jani Haywood MCV (RBC) [Entitic vol] 91.3 fL Normal 81.0-99.0 [facility] Comment on above: Performed By: #### C BC #### [facility] [address] [place] [address] Dr. Jani Haywood MONO # 0.5 103/ul Normal 0.3-0.8 [facility] Comment on above: Performed By: #### C BC #### [facility] [address] [place] [address] Dr. Jani Haywood Monocytes/100 WBC (Bld) 6.6 % Normal 1.7-12.0 [facility] Comment on above: Performed By: #### C BC #### [facility] [address] [place] [address] Dr. Jani Haywood NEUT # 5.1 103/ul Normal 1.4-6.5 [facility] Comment on above: Performed By: #### C BC #### [facility] [address] [place] [address] Dr. Jani Haywood Neutrophils/100 WBC (Bld) 69.7 % Normal 43.0-75.0 [facility] Comment on above: Performed By: #### C BC #### [facility] [address] [place] [address] Dr. Jani Haywood Platelet mean volume (Bld) [Entitic vol] 10.2 fL Normal 9.5-13.5 [facility] Comment on above: Performed By: #### C BC #### [facility] [address] [place] [address] Dr. Jani Haywood PLT 281 103/ul Normal 150-450 [facility] Comment on above: Performed By: #### C BC #### [facility] [address] [place] [address] Dr. Jani Haywood RBC 4.15 106/ul Critically low 4.20-5.[address] [facility] Comment on above: Performed By: #### C BC #### [facility] [address] [address] [address] Jani Haywood WBC 7.3 103/ul Normal 4.0-11.0 [facility] Comment on above: Performed By: #### C BC #### [facility] [address] [address] [address] Jani Haywood GLYCOHEMOGLOBIN A1Con 2022 ADA RECOMMENDATION SEE BELOW Normal [facility] Comment on above: Result Comment: ADA RECOMMENDED LIMIT 4.0 - 6.0 ADA THERAPEUTIC TARGET < 7.0 ACTION SUGGESTED > 7.0 Performed By: #### A 1C #### [facility] [address] [place] [address] Dr. Jani Haywood Glucose [Mass/Vol] 103 mg/dL Normal [facility] Comment on above: Performed By: #### A 1C #### [facility] [address] [address] [address] Jani Haywood HbA1c (Bld) [Mass fraction] 5.2 % Normal 4.5-6.2 [facility] Comment on above: Performed By: #### A 1C #### [facility] [address] [place] [address] Dr. Jani Haywood CRISTELA BOX TEST PT SEND OUTo n 07-02-2022 SENT TO REF LAB 07/02/[address] [facility] Comment on above: Performed By: #### N BOX #### [facility] [address] [place] [address] Dr. Jani Haywood TYPE AND SCREENon 07-02-2022 TYPE AND SCREEN Negative Normal [facility] Comment on above: Performed By: #### A 1C #### [facility] [address] [place] [address] Dr. Jani Haywood US PREG TVon 06-18-2022 [...] by: RIMMA BATRES Date: 2022-06-18 16:09 Normal [facility] PAP ACOG PANEL 2: 30 to 65on 12-03-2021 . . Normal [facility] Comment on above: Result Comment: Perf ormed at: WB Performed By: #### [id number] #### [facility] [address] [place] [address] Dr. Jani Haywood Age Gdln ACOG Testing 30-65 [facility] Comment on above: Performed By: #### [id number] #### [facility] [address] [place] [address] Dr. Jani Haywood DIAGNOSIS: Comment Normal [facility] Comment on above: Result Comment: NEGA TIVE FOR INTRAEPITHELIAL LESION OR MALIGNANCY. Performed at: WB Performed By: #### [id number] #### [facility] [address] [place] [address] Dr. Jani Haywood HPV Aptima Negative Normal Negative [facility] Comment on above: Result Comment: This nucleic acid amplification test detects fourteen high-risk HPV types (16,18,31,33,35,39,45,51,52,56,58,59,66,68) without differentiation. Performed at: =G Performed By: #### [id number] #### [facility] [address] [address] [address] Jani Haywood Methodology: Comment Normal [facility] Comment on above: Result Comment: This liquid based ThinPrep(R) pap test was screened with the use of an image guided system. Performed at: WB Performed By: #### [id number] #### [facility] [address] [place] [address] Dr. Jani Haywood Note: Comment Normal [facility] [...] Performed at: WB Performed By: #### [id number] #### [facility] [address] [address] [address] Jani Haywood Performed by: Comment Normal [facility] Comment on above: Result Comment: Nikki Schwab, Ventilator Specialist (ASCP) Performed at: WB Performed By: #### [id number] #### [facility] [address] [address] [address] Jani Haywood Specimen adequacy: Comment Normal [facility] Comment on above: Result Comment: Sati sfactory for evaluation. Endocervical and/or squamous metaplastic cells (endocervical component) are present. Performed at: WB Performed By: #### [id number] #### [facility] [address] [address] [address] Jani Haywood Vital Signs Date Time Vital Sign Value Performing Clinician Facility 07-30-2023 09:32-0500 Body mass index (BMI) [Ratio] 25.88 kg/m2 [employer] Work Phone: [facility] 07-30-2023 09:32-0500 Body weight 66.28 kg [employer] Work Phone: [facility] 07-30-2023 09:32-0500 Diastolic blood pressure 60 mm[Hg] Ivan Pollo DO Work Phone: [facility] 07-30-2023 09:32-0500 Systolic blood pressure 100 mm[Hg] Ivan Pollo Flinto Work Phone: [facility] 07-23-2023 14:33-0500 Body mass index (BMI) [Ratio] 26.24 kg/m2 Terese REYES Work Phone: [facility] 07-23-2023 14:33-0500 Body weight 67.19 kg Terese REYES Work Phone: [facility] 07-23-2023 14:33-0500 Diastolic blood pressure 68 mm[Hg] Terese REYES Work Phone: [facility] 07-23-2023 14:33-0500 Systolic blood pressure 110 mm[Hg] Terese REYES Work Phone: [facility] 11-24-2021 14:10-0400 Body height 160.02 cm Megan Oconnor Other [facility] Other 11-24-2021 14:10-0400 Body mass index (BMI) [Ratio] 20.55 kg/m2 Megan Oconnor Other [facility] Other 11-24-2021 14:10-0400 Body temperature 96.9 [degF] Megan Oconnor Other [facility] Other 11-24-2021 14:10-0400 Body weight 52.62 kg Megan Oconnor Other [facility] Other 11-24-2021 14:10-0400 SaO2% (BldA) [Mass fraction] 97 % Megan Oconnor Other [facility] Other Encounters Encounter Date Encounter Type Care Provider Facility Start: 07-30-2023 End: 07-30-2023 ambulatory IVAN POLLO Not Available Start: 07-30-2023 End: 07-30-2023 flow sheet Ivan Pollo DO Work Phone: [facility] Comment on above: Third trimester preg luan; Small for gestational age (SGA) Start: 07-23-2023 End: 07-23-2023 ambulatory TERESE AGUILA Not Available Start: 07-23-2023 End: 07-23-2023 flow sheet Terese REYES Work Phone: [facility] Comment on above: Low blood pressure r eading; Dizziness; Feeling faint; Third trimester Start: 07-21-2023 End: 07-21-2023 ambulatory YULISSA JAIME Facility:[facility] Start: 07-15-2023 End: 07-15-2023 ambulatory TERESE AGUILA Not Available Start: 07-01-2023 End: 07-01-2023 ambulatory IVAN POLLO Not Available Start: 06-18-2023 End: 06-18-2023 ambulatory TERESE AGUILA Not Available Start: 05-20-2023 End: 05-20-2023 ambulatory IVAN POLLO Not Available Start: 10-10-2022 Telephone encounter Leo Huitrononnell [facility] [place] Comment on above: 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 Start: 10-09-2022 ambulatory Yulissa WOOD Work Phone: Audiology Start: 09-24-2022 End: 09-24-2022 ambulatory RIMMA STERLING Facility:[facility] Start: 09-24-2022 End: 09-24-2022 Patient encounter procedure Rimma Sterling PAAnuradha Work Phone: Otolaryngology Comment on above: Cochlear implant in place (Primary Dx); Sensorineural hearing loss, asymmetrical; Sensorineural hearing loss, bilateral Start: 07-29-2022 End: 07-30-[address] ARIEL RAJAN Facility:[facility] Start: 07-18-2022 End: 07-18-[address] ROSA CARTER Facility:[facility] Start: 07-17-2022 Encounter for preprocedural laboratory examination DR ROSA CARTER [facility] Start: 07-16-2022 End: 07-17-[address] ROSA CARTER Facility:[facility] Start: 07-16-2022 End: 07-17-2022 Encounter for preprocedural laboratory examination DR ROSA CARTER Facility:[facility] Start: 07-02-2022 End: 07-03-[address] ROSA CARTER Facility:[facility] Start: 06-18-2022 End: 06-19-[address] ROSA CARTER Facility:[facility] Start: 11-27-2021 End: 11-27-[address] ROSA CARTER Facility:[facility] Start: 11-24-2021 End: 11-24-2021 ambulatory Megan Oconnor Other [facility] Other Start: 11-24-2021 Office outpatient vi sit [...] (3 - PPSV23 if available, else PCV20) [facility] Start: 04-22-2028 Screening for malign ant neoplasm of cervix [facility] Start: 04-26-2024 End: 04-26-2024 Patient encounter procedure 04/26/2024 9:00 AM EST Office Visit [facility] [address] [place] [id number] Ivan Abad, DO [address] [place] [address] [facility] Start: 08-13-2023 End: 08-13-2023 Patient encounter procedure 08/13/2023 11:20 AM EST Routine [facility] [address] [place] [id number] Ivan Abad, DO [address] [place] [address] [facility] Start: 07-30-2023 End: 07-30-2024 US biophysical profile w non stress test US biophysical profile w non stress test Imaging Routine Small for gestational age (SGA) Expected: 07/30/2023 (Approximate), Expires: 07/30/2024 [facility] Work Phone: Comment on above: Expected: 07/30/2023 (Approximate), Expires: 07/30/2024 Start: 07-30-2023 End: 07-30-2023 Patient encounter procedure 07/30/2023 9:20 AM EST Routine [facility] [address] [place] [phone] Ivan Abad, DO [address] [facility] [address] [place], [place] [id number] [facility] Start: 07-23-2023 End: 07-23-2023 Professional / ancillary services management 07/23/2023 3:00 PM EST Ancillary Procedure [facility] [address] [place] [id number] [facility] Start: 02-20-2023 Influenza vaccination C [facility] Start: 06-22-2022 DEPRESSION ASSESSMENT DEPRESSION ASS ESSMENT [facility] Start: 10-20-2021 COVID-19 VACCINE (3 - Booster for Pfizer series) COVID-19 VACCINE (3 - Booster for Pfizer series) [facility] Start: 2019 Mammography MAMMOGRAM [facility] Start: 2019 Screening for malign ant neoplasm of breast Mammogram [facility] Start: 11-17-2009 HPV TESTING HPV TESTING [facility] Start: 11-17-2000 PAP TESTING PAP TESTING [facility] Start: 11-17-1998 Urine microalbumin profile DTAP,TDAP,TD (1 - Tdap) [facility] Start: 11-17-1997 HEPATITIS C SCREENING HEPATITIS C SC JOSE [facility] Start: 11-17-1997 HIV SCREENING HIV SCREENING [facility] Start: 1980 HEPATITIS B (1 of 3 - 3-dose series) HEPATITIS B (1 of 3 - 3-dose series) [facility] Immunizations Immunization Date Immunization Notes Care Provider Fa cility 03-22-2020 influenza virus vacc ine, unspecified formulation Terese REYES Work Phone: [facility] 08-13-2017 pneumococcal polysaccharide vaccine, 23 valent Rimma Sterling PA-C Work Phone: [facility] 08-10-2014 pneumococcal conjuga te vaccine, 13 valent Rimma Sterling PA-C Work Phone: [facility] Payers Date Payer Category Payer Unknown [id number] 2022 Unknown [id number] 1980 Unknown [id number] 2.16.84 [id number] 1979 Unknown [id number] 2.16.84 [id number] 1979 Unknown [id number] 2.16.84 [id number] 1979 Unknown [id number] 2.16.84 [id number] 1979 Unknown [id number] 2.16.84 [id number] 1979 Unknown [id number] 2.16.84 [id number] 1979 Unknown [id number] 2.16.84 [id number] 1979 Unknown [id number] 2.16.84 [id number] 1979 Unknown [id number] 2.16.84 0.1.553983.3.579.2.1259 1979 Unknown [id number] 2.16.84 [id number] 1979 Unknown [id number] 2.16.84 [id number] 1979 Unknown [id number] 2.16.840 .[id number] 1979 Unknown [id number] 2.16.840 .[id number] 1960 [facility] [id number] Unknown [id number] 2.16.84 [id number] Social History Date Type Detail Facility Start: 03-16-2023 Sex Assigned At [facility] Other Start: 09-24-2022 End: 03-16-2023 Tobacco smoking status NHIS Never smoked tobacco [facility] Start: 09-24-2022 End: 03-16-2023 Tobacco use and exposure Smokeless tobacco non-user [facility] Start: 09-24-2022 Alcohol intake Current non-drinker of alcohol (finding) [facility] Start: 1980 Sex Assigned At Female [facility] Start: 07-23-2023 End: 07-30-2023 Alcohol intake Ex-drinker (finding) [facility] Start: 03-16-2023 History of Social function [facility] Start: 04-22-2023 Alcohol Comment occasional alcohol use, Caffeine intake: none [facility] Start: 12-25-2022 [facility] Start: 01-21-2023 Gender identity Identifies as female gender (finding) [facility] Start: 01-21-2023 Sexual orientation Heterosexual (finding) [facility] Medical Equipment Procedure Code Equipment Code Equipment Original Text Equipment Identifier Dates [id number] Implant - [id number] Start: 09-02-2017 Comment on above: Description: [...] Ivan Abad DO documented in this encounter [facility] 07-23-2023 History of Presen t illness Narrative [...] of: ERIC Smallwood documented in this encounter [facility] 07-21-2023 Note HNO ID: [id number] Author: YULISSA JAIME AUD Service: ? Author Type: Pinion Polisher Type: Progress Notes Filed: 07/21/2023 08:47 Note Text: [facility] [place] [facility] COCHLEAR IMPLANT ADULT PROGRAMMING Name: Amy ALFARO [facility]#: [id number] Date of Service: July 21, 2023 Date of : 1980 Age: [age] year old COCHLEAR IMPLANT INFORMATION (see below for all device details) Updated: July 21, 2023 Right ear: Phonak Audeo [employer] Hearing Aid that was fit at an outside facility (November 2021) and is being managed by that facility. Left ear: External Processor: Cochlear [employer] [id number] (Nucleus 8; upgraded around January 2023) Processor SN: [id number] Processor ([id number]) SN: [id number] Magnet strength: 2 Internal Device: Cochlear [id number] Profile with Slim Modiolar Electrode Array Internal Device SN: [id number] Inactive electrodes: None Surgery Date: 09/02/2017 Initial [...] 6; Sensitivity: 12) before programming. See the YhatForm Audiogram for obtained thresholds. Speech perception testing was completed at 60 exchange engineer using recorded stimuli in the sound field at 0 degrees azimuth. NOTE: The contralateral ear was not plugged and muffed during testing. The following testing and results were obtained: Rswbkyyqd-Xxpomxk-Nxhkjfqje Words (CNC) Test Condition List # Phonemes [...] hours. * Revie (more content not included)... [facility] 10-10-2022 Miscellaneous Notes Lining Vamper: Katerina Mina Patient: Hasmukh Alfaro 1980 Clinic: [facility] Pinion Polisher: Dr. Yulissa Jaime Appointment Length: 45 Minutes What are you looking to accomplish?: I d like to learn more about the Nucleus 8 and the process of upgrading Recipient's Stated Reason for Upgrading Clinic Request - Pinion Polisher recommended it [employer] - Processor more [...] steps are Acquisition Methods Recipient will receive Uxc-pn-Tawxqc cost estimate once order placed Next Steps If recipient decides to move forward with pursuing a Nucleus 8 upgrade and provides us with the necessary order information, we will start an order on their behalf. You will hear from Cochlear s [employer] Counselor team, via email/DocuSign to gain your approval or regarding an LMN to allow this patient to move forward in the process. Following completion of the upgrade process, I will invite the recipient to schedule time for a complimentary onboarding with our [employer] team so they can begin to maximize the use of their new Cochlear equipment. documented in this encounter [facility] 10-09-2022 Note HNO ID: [id number] Author: ISRAEL Champion Service: ? Author Type: Pinion Polisher Type: Progress Notes Filed: 10/09/2022 12:58 PM [...] any questions. Upgrade Consultation Clinic Patient Report Lining Vamper: Katerina Mina Patient: Hasmukh Alfaro 1980 Clinic: [facility] Pinion Polisher: Dr. Yulissa Jaime Appointment Length: 45 Minutes What are you looking to accomplish?: I?d like to learn more about the Nucleus 8 and the process of upgrading Recipient's Stated Reason for Upgrading ? Clinic Request - Pinion Polisher recommended it ? [employer] - Processor [...] are Acquisition Methods ? Recipient will receive Jlu-fi-Qeoobz cost estimate once order placed Next Steps ? If recipient decides to move forward with pursuing a Nucleus 8 upgrade and provides us with the necessary order information, we will start an order on their behalf. You will hear from Cochlear?s [employer] Counselor team, via email/DocuSign to gain your approval or regarding an LMN to allow this patient to move forward in the process. Following completion of the upgrade process, I will invite the recipient to schedule time for a complimentary onboarding with our [employer] team so they can begin to maximize the use of their new Cochlear equipment. Warm Regards, Eloisa Vazquez, [facility]/A Clinical Pinion Polisher [facility] 10-09-2022 History of Presen t illness Narrative [...] any questions. Upgrade Consultation Clinic Patient Report Lining Vamper: Katerina Mina Patient: Hasmukh Alfaro 1980 Clinic: [facility] Pinion Polisher: Dr. Yulissa Jaime Appointment Length: 45 Minutes What are you looking to accomplish?: I d like to learn more about the Nucleus 8 and the process of upgrading Recipient's Stated Reason for Upgrading Clinic Request - Pinion Polisher recommended it [employer] - Processor more [...] steps are Acquisition Methods Recipient will receive Jxv-hn-Yrctbd cost estimate once order placed Next Steps If recipient decides to move forward with pursuing a Nucleus 8 upgrade and provides us with the necessary order information, we will start an order on their behalf. You will hear from Cochlear s [employer] Counselor team, via email/DocuSign to gain your approval or regarding an LMN to allow this patient to move forward in the process. Following completion of the upgrade process, I will invite the recipient to schedule time for a complimentary onboarding with our [employer] team so they can begin to maximize the use of their new Cochlear equipment. Warm Regards, Eloisa Vazquez, GIOVANNY/A Clinical Pinion Polisher documented in this encounter [facility] 09-24-2022 Note HNO ID: [id number] Author: Rimma Sterling PA-C Service: ? Author Type: Physician Signaling Project Engineer Type: Progress Notes Filed: 09/24/2022 9:53 AM Note Text: History of Present Illness Ms. AMY ALFARO is a 41 year old year old female presenting for: referred by SELF And is a patient of DO Abel Card DO [address] [place] [address] Communication will be via the electronic record [...] (FLONASE) 50 mcg/actuation nasal spray Use 1 [place] in each nostril as needed. multivitamin (DAILY [...] Medical Decision Making Level: 2 - Straightforward [facility] 09-24-2022 Instructions Rimma Sterling PA-C - 09/24/2022 9:[address] Audra Umanzor use his name on paperwork documented in this encounter [facility] 09-24-2022 History of Presen t illness Narrative History of Present Illness Ms. AMY ALFARO is a 41 year old year old female presenting for: referred by SELF And is a patient of DO Abel Card DO [facility] [place] [address] Communication will be via the electronic record [...] (FLONASE) 50 mcg/actuation nasal spray Use 1 [place] in each nostril as needed. multivitamin (DAILY [...] 2 - Straightforward documented in this encounter [facility] 07-18-2022 Note EXAMINATION: US PELV IS HISTORY: Surgical procedure COMPARISON: Ultrasound less than 14 weeks 07/16/2022 TECHNIQUE: Transabdominal and transvaginal sonographic examination. FINDINGS: Final images show an empty endometrial cavity. IMPRESSION: 1. No appreciable products of conception within endometrial cavity following dilation and curettage. Electronically authenticated by: ALEXI BRANCH Date: 2022-07-18 08:21 [facility] 11-24-2021 Evaluation note Encounter Date Diagnosis Assessment [...] Fungal rash of trunk (ICD-10 - B36.9) [facility] Other Evaluation note* Diagnosis Cochlear implant in place- Primary Other postprocedural status Sensorineural hearing loss, asymmetrical Sensorineural hearing loss, bilateral [facility] Low blood pressure reading [...] Surgical History cochlear implant Surgical History D&C [facility] Other Summary Purpose Family History No Family History Records FoundNo Family History Records FoundNo Family History Records Found Advance Directives No Advanced Directives Records FoundNo Advanced Directives Records FoundNo Advanced Directives Records Found Additional Source Comments REASON FOR VISIT (unrecogniz ed section and content) Reason Comments Hearing Loss New. Self referral. CI LT side. Last audio 03/18/22. Denies otalgia and otorrhea. Reason Comments Learning Support Aide - Other Reason Comments Dizziness Hypotension Reason Comments Routine Visit INFORMATION SOURCE (unrecogn ized section and content) DATE CREATED AUTHOR 07/30/2022 [facility] DATE CREATED AUTHOR AUTHOR'S ORGANIZ ATION 07/22/2023 [facility] DATE CREATED AUTHOR AUTHOR'S ORGANIZ ATION 07/31/2023 [facility] [facility] EPIC Source Comments (unrecognize d section and content) In the event this informatio n is protected by the Federal Confidentiality of Alcohol and Drug Abuse Patient Records regulations: The Federal rules restrict any use of the information to criminally investigate or prosecute any alcohol or drug abuse patient.[facility] the event this information is protected by the Federal Confidentiality of Alcohol and Drug Abuse Patient Records regulations: The Federal rules restrict any use of the information to criminally investigate or prosecute any alcohol or drug abuse patient.[facility] the event this information is protected by the Federal Confidentiality of Alcohol and Drug Abuse Patient Records regulations: The Federal rules restrict any use of the information to criminally investigate or prosecute any alcohol or drug abuse patient.[facility] Care Teams (unrecognized sec tion and content) Purchasing Coordinator Relationship Specialty Start Date End Date Abel Sun PCP - General Family Medicine 03/15/14 Purchasing Coordinator Relationship Specialty Start Date End Date Abel Sun PCP - General Family Medicine 03/15/14 Purchasing Coordinator Relationship Specialty Start Date End Date Abel Sun PCP - General Family Medicine 03/15/14 Purchasing Coordinator Relationship Specialty Start Date End Date Ariel Rajan MD [address] [place] [address] PCP - General 02/16/23 Purchasing Coordinator Relationship Specialty Start Date End Date Ariel Rajan MD [address] [place] [address] PCP - General 02/16/23 FOR RECORDS PERTAINING [...] BE BASED ON THE PRIMARY CLINICAL RECORDS. [facility] [employer] [facility]. provides no warranty or guarantee of the accuracy or completeness of information in this document.
--- NOTE | 2023-08-18 15:03 | US_ITS ---
[address] [address] Patient Name: HILLARY ALFARO MRN: [id number] date: 1980 Sex: F Assigned Patient Location: US Current Patient Location: US Accession/Order Number: [id number] Exam Date: 08/18/2023 15:05 Report Date: 08/18/2023 15:33 At the request of: IVAN KARIMI Procedure: US OB BPP w non-stress EXAMINATION: US OB BPP w non-stress HISTORY: SMALL FOR GESTATIONAL AGE P05.10 COMPARISON: 07/23/2023, 02/20/2023, 06/24/2023 TECHNIQUE: Ultrasound biophysical profile was performed in the radiology department. FINDINGS: BREATHING MOVEMENTS: 2.0 GROSS BODY MOVEMENTS: 2.0 TONE: 2.0 QUALITATIVE AMNIOTIC FLUID VOLUME: 2.0 PRESENTATION: CEPHALIC HEART RATE: 134.3 bpm H.B./min AMNIOTIC FLUID VOLUME: 13.1 cm cm GESTATIONAL AGE: 35 weeks 5 days Anechoic echogenicity bilateral scrotum CONCLUSION: Total biophysical profile score: 8.0 Bilateral scrotal hydroceles. Right greater than left. Unknown etiology Electronically authenticated by: RIMMA BATRES Date: 08/18/2023 15:33
[2023-08-18 15:45] VITALS: BP 109/73; PULSE 85
== END 2023-08-18 16:02 | disposition home or self-care (01) ==
LOC: US 07:02 → FBC 15:25
PROVIDERS: PCP Family Medicine; Visit Provider Obstetrics & Gynecology
DX: O26.843 Uterine size-date discrepancy, third trimester (principal); Z3A.35 35 weeks gestation of pregnancy
CPT/HCPCS: 76818

== ENCOUNTER 2023-08-20 11:03 | Outpatient (OUT) | payer OTHER, SELFPAY ==
--- NOTE | 2023-08-20 11:05 | US_ITS ---
[address] [address] Patient Name: HILLARY ALFARO MRN: [id number] date: 1980 Sex: F Assigned Patient Location: [facility] Current Patient Location: [facility] Accession/Order Number: [id number] Exam Date: 08/20/2023 11:06 Report Date: 08/20/2023 11:46 At the request of: HENRY AGUILA Procedure: US OB growth EXAMINATION: US OB growth HISTORY: SGA COMPARISON: 07/23/2023 FINDINGS: Heart Rate: 135.0 bpm Amniotic Fluid Volume: 11.0 cm Number: 1.0 Position: Cephalic presentation, longitudinal lie Maximum Vertical Pocket: 0.0 cm cm 5.3 cm cm 3.3 cm cm 2.4 cm cm BIOMETRY: BPD: 8.4 cm cm; 33 weeks 6 days; 8% HC: 30.9 cmcm; 34 weeks 4 days , 3% AC: 30.2 cm cm; 34 weeks 1 days, 12% FL: 6.7 cm cm; 34 weeks 5 days; 14.7 % % EFW: 2393.9 grams, 5 lbs. 4 oz., 12% FL/AC: 22.4 FL/BPD: 80.1 HC/AC: 1.0 GESTATIONAL AGE: Age by EDC: 36 weeks 0 days JALIL by EDC: 09/17/2023 Age by US: 34 weeks 0 days JALIL by US: 10/01/2023 US/US OB growth IMPRESSION: Head circumference at the 3rd percentile Estimated weight at the 12th percentile Electronically authenticated by: RIMMA BATRES Date: 08/20/2023 11:46
--- OUTSIDE RECORDS SUMMARY | 2023-08-20 11:20 | XMS_ITS | CCD ---
Author Name Unknown Address [address] [place] [address] Organization [facility] Care Team Providers Care Chemical Worker Name Role Phone Megan Oconnor Unavailable ANDRES, [...] Unavailab Ariel Rich MD Primary Care Provider [phone] TERESE AGUILA Attending Unavailable IVAN ABAD Attending Unavailable TERESE AGUILA Attending Unavailable TERESE AGUILA Attending Unavailable IVAN ABAD Attending Unavailable IVAN ABAD Attending Unavailable Allergies Allergy Classification Reported Allergen(s) Allergy Type Date of Onset Reaction(s) Facility (4 sources) Seasonal allergy; Translations: [SEASONAL ALLERGIES] Allergy to substance 4 Cough [facility] (4 sources) Octacosanol Drug Allergy 4 Cough [facility] (4 sources) Other Propensity to adverse reactions 3 Unknown [facility] Medications Current Medications Medication Drug Class(es) Dates Sig (Normalized) Sig (Original) [id number] 200 actuat albuterol 0.09 mg/actuat metered dose [...] on above: Take 1 capsule by mo [facility] as needed. fluticasone propionate 0.05 mg/actuat metered dose nasal spray (3 sources) Corticosteroid fluticasone (FLONASE) 50 mcg/actuation nasal spray Indications: Bilateral sensorineural hearing loss , Autoimmune disorder of inner ear Use 1 Burrton in each nostril as needed. 0 Active Comment on above: Use 1 Burrton in each nostril as needed. LOW-DOSE ASPIRIN PO (2 sources) Start: 04-02-2023 End: 07-23-2023 LOW-DOSE ASPIRIN PO multivitamin (DAILY MULTIPLE) tablet (3 sources) take 1 tablet by mouth once daily multivitamin (DAILY MULTIPLE) tablet Take 1 tablet by mouth once daily. 0 Active Comment on above: Take 1 tablet by [facility] once daily. predniSONE 10 mg oral [...] low weight; and growth retardation (2 sources) Aekgl-stj-wpwhv baby; Translations: [ small for gestational age, [...] UA Negative Negative - 4(70) +++ mg/dL [facility] Blood, UA Positive Negative - 50 Bobby/mcL [facility] Comment on above: trace-intact Clarity, UA Clear [facility] re Color, UA Yellow [facility] e Glucose, UA Negative Negative - 1999(110) ++++ mg/dL [facility] Interpretation and review of laboratory results Abnormal [facility] Ketones, UA Negative Negative - 160(16) ++++ mg/dL [facility] Leukocytes, UA Positive Negative - 500+++ Suzette/mcL [facility] Comment on above: small Nitrite, UA Negative Negative - Positive [facility] pH, UA 6.0 5 - 9 [facility], [facility]A Negative Negative - 1999(20) ++++ mg/dL [facility] Spec Grav, UA 1.010 1 - 1.03 [facility] Urobilinogen, UA 0.2 0.2 - 12 mg/dL [facility] Urinalysis macro (dipstick) panel (U)on 07-23-2023 Bilirubin, UA Negative Negative - 4(70) +++ mg/dL [facility] Blood, UA Negative Negative - 50 Bobby/mcL [facility] Clarity, UA Clear [facility] re Color, UA Yellow [facility] e Glucose, UA Negative Negative - 1999(110) ++++ mg/dL [facility] Interpretation and review of laboratory results Abnormal [facility] Ketones, UA Negative Negative - 160(16) ++++ mg/dL [facility] Leukocytes, UA Positive Negative - 500+++ Suzette/mcL [facility] Comment on above: small Nitrite, UA Negative Negative - Positive [facility] pH, UA 7.0 5 - 9 [facility] e Protein, UA Negative Negative - 1999(20) ++++ mg/dL [facility] Spec Grav, UA 1.015 1 - 1.03 [facility] Urobilinogen, UA 0.2 0.2 - 12 mg/dL [facility]23 CNOV Office Visit (MALISSAUCR ) AMY ALFARO ([id number]) 1980 F Date Time Provider Department 07/21/23 7:30 AM YULISSA JAIME During your visit today, we recorded the following information about you: Yulissa Jaime AUD 07/21/2023 8:47 AM Signed [facility] [place] [facility] COCHLEAR IMPLANT ADULT PROGRAMMING Name: Amy ALFARO CC#: [id number] Date of Service: July 21, 2023 Date of : 1980 Age: [age] year old COCHLEAR IMPLANT INFORMATION (see below for all device details) Updated: July 21, 2023 Right ear: Phonak Audeo RITE Hearing Aid that was fit at an outside facility (November 2021) and is being managed by that facility. Left ear: External Processor: Cochlear Claros [id number] (Nucleus 8; upgraded around January 2023) Processor SN: [id number] Processor ([id number]) SN: [id number] Magnet strength: 2 Internal Device: Cochlear [id number] Profile with Slim Modiolar Electrode Array Internal Device SN: [id number] Inactive electrodes: None Surgery Date: 09/02/2017 Initial [...] 6; Sensitivity: 12) before programming. See the [facility] Audiogram for obtained thresholds. Speech perception testing was completed at 60 engineer intern using recorded stimuli in the sound field at 0 degrees azimuth. NOTE: The contralateral ear was not plugged and muffed during testing. The following testing and results were obtained: Qocsastlr-Jwbjsxk-Wnf sonant Words (CNC) Test Condition List # [...] etc. Shoul (more content not included)... Normal [facility] Ada 10-10-2022 JEANN Telephone (HNQ) DOMINICAMY Shravan ([id number]) 1980 F Date Time Provider Department 10/10/22 LEO ATKINSON During your visit today, we recorded the following information about you: Leo Huitrononnell 10/10/2022 3:52 PM Signed Parks And Recreation Manager: Katerina Mina Patient: Hasmukh Alfaro 1980 Clinic: [facility] Resident Advisor: Dr. Yulissa Jaime Appointment Length: 45 Minutes What are you looking to accomplish?: I?d like to learn more about the Nucleus 8 and the process of upgrading Recipient's Stated Reason for Upgrading ? Clinic Request - Resident Advisor recommended it ? Useful Life - Processor [...] are Acquisition Methods ? Recipient will receive Law-ho-Ltopqc cost estimate once order placed Next Steps ? If recipient decides to move forward with pursuing a Nucleus 8 upgrade and provides us with the necessary order information, we will start an order on their behalf. 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 - fluticasone (FLONASE) 50 mcg/actuation nasal spray Use 1 Burrton in each nostril as needed. - multivitamin [...] Encounter Status:Closed by LEO ATKINSON on 10/10/22 [facility] Emily 09-24-2022 CNOV Office Visit (OTOLCR ) AMY ALFARO ([id number]) 1980 F Date Time Provider Department 09/24/22 9:30 AM RIMMA STERLING OTVIDAL During your visit today, we recorded the following information about you: Rimma Sterling PA-C 09/24/2022 9:53 AM Signed History of Present Illness Ms. AMY ALFARO is a 41 year old year old female presenting for: referred by SELF And is a patient of DO Abel Card DO [address] [place] [address] Communication will be via the electronic record [...] (FLONASE) 50 mcg/actuation nasal spray Use 1 Burrton in each nostril as needed. multivitamin (DAILY [...] ALLERGIES 1 (more content not included)... Normal [facility] CBC AUTO DIFFon 07-29-2022 BASO # 0.0 103/ul Normal 0.0-0.1 [facility] Comment on above: Performed By: #### C BC #### [facility] [address] [place] [address] Dr. Jani Haywood Basophils/100 WBC (Bld) 0.6 % Normal 0.2-2.0 [facility] Comment on above: Performed By: #### C BC #### [facility] [address] [place] [address] Dr. Jani Haywood EO # 0.1 103/ul Normal 0.0-0.7 [facility] Comment on above: Performed By: #### C BC #### [facility] [address] [place] [address] Dr. Jani Haywood Eosinophils/100 WBC (Bld) 2.5 % Normal 0.9-7.0 [facility] Comment on above: Performed By: #### C BC #### [facility] [address] [place] [address] Dr. Jani Haywood Erythrocyte distribution width (RBC) [Ratio] 13.7 % Normal 11.0-15.0 [facility] Comment on above: Performed By: #### C BC #### [facility] [address] [place] [address] Dr. Jani Haywood Hematocrit (Bld) [Volume fraction] 40.3 % Normal 36.0-48.0 [facility] Comment on above: Performed By: #### C BC #### [facility] [address] [place] [address] Dr. Jani Haywood Hemoglobin (Bld) [Mass/Vol] 12.7 g/dL Normal 12.0-16.0 [facility] Comment on above: Performed By: #### C BC #### [facility] [address] [place] [address] Dr. Jani Haywood IG # 0.01 10e3/ul Normal 0.00-0.03 [facility] Comment on above: Performed By: #### C BC #### [facility] [address] [place] [address] Dr. Jani Haywood IG % 0.2 % Normal 0.0-0.5 [facility] Comment on above: Performed By: #### C BC #### [facility] [address] [place] [address] Dr. Jani Haywood LYMPH # 1.8 103/ul Normal 1.2-3.8 [facility] Comment on above: Performed By: #### C BC #### [facility] [address] [place] [address] Dr. Jani Haywood Lymphocytes/100 WBC (Bld) 35.2 % Normal 20.5-60.0 [facility] Comment on above: Performed By: #### C BC #### [facility] [address] [place] [address] Dr. Jani Haywood MANUAL DIFF REQ NO Normal [facility] Comment on above: Performed By: #### C BC #### [facility] [address] [place] [address] Dr. Jani Haywood MCH (RBC) [Entitic mass] 30.5 pg Normal 26.7-34.0 [facility] Comment on above: Performed By: #### C BC #### [facility] [address] [place] [address] Dr. Jani Haywood MCHC (RBC) [Mass/Vol] 31.5 g/dL Normal 29.9-35.2 [facility] Comment on above: Performed By: #### C BC #### [facility] [address] [place] [address] Dr. Jani Haywood MCV (RBC) [Entitic vol] 96.9 fL Normal 81.0-99.0 [facility] Comment on above: Performed By: #### C BC #### [facility] [address] [place] [address] Dr. Jani Haywood MONO # 0.4 103/ul Normal 0.3-0.8 [facility] Comment on above: Performed By: #### C BC #### [facility] [address] [place] [address] Dr. Jani Haywood Monocytes/100 WBC (Bld) 8.1 % Normal 1.7-12.0 [facility] Comment on above: Performed By: #### C BC #### [facility] [address] [place] [address] Dr. Jani Haywood NEUT # 2.8 103/ul Normal 1.4-6.5 [facility] Comment on above: Performed By: #### C BC #### [facility] [address] [address] [address] Jani Haywood Neutrophils/100 WBC (Bld) 53.4 % Normal 43.0-75.0 [facility] Comment on above: Performed By: #### C BC #### [facility] [address] [address] [address] Jani Haywood Platelet mean volume (Bld) [Entitic vol] 10.0 fL Normal 9.5-13.5 [facility] Comment on above: Performed By: #### C BC #### [facility] [address] [address] [address] Jani Haywood PLT 271 103/ul Normal 150-450 [facility] Comment on above: Performed By: #### C BC #### [facility] [address] [place] [address] Dr. Jani Haywood RBC 4.16 106/ul Critically low 4.20-5.40 [facility] Comment on above: Performed By: #### C BC #### [facility] [address] [place] [address] Dr. Jani Haywood WBC 5.2 103/ul Normal 4.0-11.0 [facility] Comment on above: Performed By: #### C BC #### [facility] [address] [place] [address] Dr. Jani Haywood IRONon 07-29-2022 Iron [Mass/Vol] 64.0 ug/dL Normal 50.0-170.0 [facility] Comment on above: Performed By: #### A 1C #### [facility] [address] [place] [address] Dr. Jani Haywood PROF 14(COMP METB)on 023 Albumin [Mass/Vol] 3.5 g/dL Normal 3.4-5.0 [facility] Comment on above: Performed By: #### C MP #### [facility] [address] [place] [address] Dr. Jani Haywood Albumin/Globulin [Mass ratio] 0.9 {ratio} Normal [facility] Comment on above: Performed By: #### C MP #### [facility] [address] [address] [address] Jani Haywood ALP [Catalytic activity/Vol] 73 U/L Normal 46-116 [facility] Comment on above: Performed By: #### C MP #### [facility] [address] [address] [address] Jani Haywood ALT [Catalytic activity/Vol] 12 U/L Critically low 14-59 [facility] Comment on above: Performed By: #### C MP #### [facility] [address] [address] [address] Jani Haywood Anion gap [Moles/Vol] 11.0 mmol/L Normal [facility] Comment on above: Performed By: #### C MP #### [facility] [address] [place] [address] Dr. Jani Haywood AST [Catalytic activity/Vol] 13 U/L Critically low 15-37 [facility] Comment on above: Performed By: #### C MP #### [facility] [address] [address] [address] Jani Haywood Bilirubin [Mass/Vol] 0.5 mg/dL Normal 0.2-1.0 [facility] Comment on above: Performed By: #### C MP #### [facility] [address] [place] [address] Dr. Jani Haywood Calcium [Mass/Vol] 8.6 mg/dL Normal 8.5-10.1 [facility] Comment on above: Performed By: #### C MP #### [facility] [address] [address] [address] Jani Haywood Chloride [Moles/Vol] 105 mmol/L Normal 98-107 [facility] Comment on above: Performed By: #### C MP #### [facility] [address] [address] [address] Jani Haywood CO2 [Moles/Vol] 28.8 mmol/L Normal 21.0-32.0 [facility] Comment on above: Performed By: #### C MP #### [facility] [address] [address] [address] Jani Haywood Creatinine [Mass/Vol] 0.87 mg/dL Normal 0.55-1.02 [facility] Comment on above: Performed By: #### C MP #### [facility] [address] [address] [address] Jani Haywood EGFR-AF [place] CITIZ[place] >60 Normal >=60 [facility] Comment on above: Performed By: #### C MP #### [facility] [address] [address] [address] Jani Haywood EGFR-NON AF [place] CITIZEN >60 Normal >=60 [facility] Comment on above: Performed By: #### C MP #### [facility] [address] [place] [address] Dr. Jani Haywood Globulin (S) [Mass/Vol] 3.7 g/dL Normal [facility] Comment on above: Performed By: #### C MP #### [facility] [address] [place] [address] Dr. Jani Haywood Glucose [Mass/Vol] 95 mg/dL Normal 74-106 [facility] Comment on above: Performed By: #### C MP #### [facility] [address] [address] [address] Jani Haywood Potassium [Moles/Vol] 3.8 mmol/L Normal 3.5-5.1 [facility] Comment on above: Performed By: #### C MP #### [facility] [address] [address] [address] Jani Haywood Protein [Mass/Vol] 7.2 g/dL Normal 6.4-8.2 [facility] Comment on above: Performed By: #### C MP #### [facility] [address] [place] [address] Dr. Jani Haywood Sodium [Moles/Vol] 141 mmol/L Normal 136-145 [facility] Comment on above: Performed By: #### C MP #### [facility] [address] [place] [address] Dr. Jani Haywood Urea nitrogen [Mass/Vol] 12.0 mg/dL Normal 7.0-18.0 [facility] Comment on above: Performed By: #### C MP #### [facility] [address] [place], [place] [address] Dr. Jani Haywood Urea nitrogen/Creatinine [Mass ratio] 13.8 mg/mg Normal [facility] Comment on above: Performed By: #### C MP #### [facility] [address] [place], [place] [address] Dr. Jani Haywood Covid-19 PCR ([facility])on 06-23 SARS-CoV-2 (COVID-19) RNA CAROLE+probe Ql (Unsp spec) Not detected Normal NOT DETECTED [facility] Comment on above: Result Comment: This test is not yet approved or cleared by the [place] FDA. When there are no FDA-approved or cleared tests available, and other criteria are met, FDA can make tests available under an emergency access mechanism called an Emergency Use Authorization (EUA). The EUA for this test is supported by the Travel Manager of Health and Human Service's (HHS's) declaration [...] SARS-CoV-2. Performed By: #### C VDTB #### [facility] [address] [place], [place] [address] Dr. Jani Haywood US PREG <14 WKSon [...] was notified of these findings by the airline stewardess at time of imaging. Electronically authenticated by: ALEXI BRANCH Date: 2022-07-16 13:36 Normal [facility] HEP B SURFACE ANTIGEN SCREEN on 07-03-2022 HBsAg Screen Negative Normal Negative [facility] Comment on above: Performed By: #### A 1C #### [facility] [address] [place] [address] Dr. Jani Haywood HEPATITIS C VIRUS AB W/ REFL EX QUANTon 07-03-2022 HCV AB <0.1 Normal 0.0-0.9 [facility] Comment on above: Performed By: #### H CVPCRR #### [facility] [address] [place] [address] Dr. Jani Haywood Interpretation: Comment Normal [facility] Comment on above: Result Comment: Nega tive Not infected with HCV, unless recent infection is suspected or other evidence exists to indicate HCV infection. Performed By: #### H CVPCRR #### [facility] [address] [place] [address] Dr. Jani Haywood HIV 1 AND 2 WITH REFLEXon HIV Screen 4th Generation wRfx Non-Reactive Normal Non Reactive [facility] Comment on above: Result Comment: HIV Negative HIV-1/HIV-2 antibodies and HIV-1 p24 antigen were NOT detected. There is no laboratory evidence of HIV infection. Performed By: #### H IV12 #### [facility] [address] [place] [address] Dr. Jani Haywood RPR QUANTon 07-03-2022 Rapid Plasma Reagin, Quant Non-Reactive Normal NonRea<1:1 [facility] Comment on above: Result Comment: Plea se Note: This test does not meet current guidelines for screening and diagnosis of syphilis. This test is intended for following treatment response in patients being treated for syphilis infection. To screen for syphilis infection, a reflex cascade that includes both RPR and a treponema-specific assay should be utilized, such as Treponema pallidum (Syphilis) Screening Marina (635411) or Rapid Plasma Reagin (RPR) Test With Reflex to Quantitative RPR and Confirmatory Treponema pallidum Antibodies (648814). Performed By: #### R PRQ #### [facility] [address] [place] [address] Dr. Jani Haywood RUBELLA AB IGGon 07-03-2022 Rubella Antibodies, IgG 2.92 index Normal Immune >0.99 [facility] Comment on above: Result Comment: Non- immune <0.90 Equivocal 0.90 - 0.99 Immune >0.99 Performed By: #### A 1C #### [facility] [address] [place] [address] Dr. Jani Haywood CBC AUTO DIFFon 07-02-2022 BASO # 0.1 103/ul Normal 0.0-0.1 [facility] Comment on above: Performed By: #### C BC #### [facility] [address] [place] [address] Dr. Jani Haywood Basophils/100 WBC (Bld) 0.7 % Normal 0.2-2.0 [facility] Comment on above: Performed By: #### C BC #### [facility] [address] [place] [address] Dr. Jani Haywood EO # 0.1 103/ul Normal 0.0-0.7 [facility] Comment on above: Performed By: #### C BC #### [facility] [address] [place] [address] Dr. Jani Haywood Eosinophils/100 WBC (Bld) 1.2 % Normal 0.9-7.0 [facility] Comment on above: Performed By: #### C BC #### [facility] [address] [place] [address] Dr. Jani Haywood Erythrocyte distribution width (RBC) [Ratio] 13.7 % Normal 11.0-15.0 [facility] Comment on above: Performed By: #### C BC #### [facility] [address] [place] [address] Dr. Jani Haywood Hematocrit (Bld) [Volume fraction] 37.9 % Normal 36.0-48.0 [facility] Comment on above: Performed By: #### C BC #### [facility] [address] [place] [address] Dr. Jani Haywood Hemoglobin (Bld) [Mass/Vol] 12.6 g/dL Normal 12.0-16.0 [facility] Comment on above: Performed By: #### C BC #### [facility] [address] [place] [address] Dr. Jani Haywood IG # 0.02 10e3/ul Normal 0.00-0.03 [facility] Comment on above: Performed By: #### C BC #### [facility] [address] [place] [address] Dr. Jani Haywood IG % 0.3 % Normal 0.0-0.5 [facility] Comment on above: Performed By: #### C BC #### [facility] [address] [place] [address] Dr. Jani Haywood LYMPH # 1.6 103/ul Normal 1.2-3.8 [facility] Comment on above: Performed By: #### C BC #### [facility] [address] [place] [address] Dr. Jani Haywood Lymphocytes/100 WBC (Bld) 21.5 % Normal 20.5-60.0 [facility] Comment on above: Performed By: #### C BC #### [facility] [address] [place] [address] Dr. Jani Haywood MANUAL DIFF REQ NO Normal [facility] Comment on above: Performed By: #### C BC #### [facility] [address] [place] [address] Dr. Jani Haywood MCH (RBC) [Entitic mass] 30.4 pg Normal 26.7-34.0 [facility] Comment on above: Performed By: #### C BC #### [facility] [address] [place] [address] Dr. Jani Haywood MCHC (RBC) [Mass/Vol] 33.2 g/dL Normal 29.9-35.2 [facility] Comment on above: Performed By: #### C BC #### [facility] [address] [place] [address] Dr. Jani Haywood MCV (RBC) [Entitic vol] 91.3 fL Normal 81.0-99.0 [facility] Comment on above: Performed By: #### C BC #### [facility] [address] [place] [address] Dr. Jani Haywood MONO # 0.5 103/ul Normal 0.3-0.8 [facility] Comment on above: Performed By: #### C BC #### [facility] [address] [place] [address] Dr. Jani Haywood Monocytes/100 WBC (Bld) 6.6 % Normal 1.7-12.0 [facility] Comment on above: Performed By: #### C BC #### [facility] [address] [place] [address] Dr. Jani Haywood NEUT # 5.1 103/ul Normal 1.4-6.5 [facility] Comment on above: Performed By: #### C BC #### [facility] [address] [place] [address] Dr. Jani Haywood Neutrophils/100 WBC (Bld) 69.7 % Normal 43.0-75.0 [facility] Comment on above: Performed By: #### C BC #### [facility] [address] [place] [address] Dr. Jani Haywood Platelet mean volume (Bld) [Entitic vol] 10.2 fL Normal 9.5-13.5 [facility] Comment on above: Performed By: #### C BC #### [facility] [address] [place] [address] Dr. Jani Haywood PLT 281 103/ul Normal 150-450 [facility] Comment on above: Performed By: #### C BC #### [facility] [address] [place] [address] Dr. Jani Haywood RBC 4.15 106/ul Critically low 4.20-5.40 [facility] Comment on above: Performed By: #### C BC #### [facility] [address] [address] [address] Jani Haywood WBC 7.3 103/ul Normal 4.0-11.0 [facility] Comment on above: Performed By: #### C BC #### [facility] [address] [address] [address] Jani Haywood GLYCOHEMOGLOBIN A1Con 2022 ADA RECOMMENDATION SEE BELOW Normal [facility] Comment on above: Result Comment: ADA RECOMMENDED LIMIT 4.0 - 6.0 ADA THERAPEUTIC TARGET < 7.0 ACTION SUGGESTED > 7.0 Performed By: #### A 1C #### [facility] [address] [place] [address] Dr. Jani Haywood Glucose [Mass/Vol] 103 mg/dL Normal [facility] Comment on above: Performed By: #### A 1C #### [facility] [address] [address] [address] Jani Haywood HbA1c (Bld) [Mass fraction] 5.2 % Normal 4.5-6.2 [facility] Comment on above: Performed By: #### A 1C #### [facility] [address] [place] [address] Dr. Jani Haywood CRISTELA BOX TEST PT SEND OUTo n 07-02-2022 SENT TO REF LAB 07/02/2022 Normal [facility] Comment on above: Performed By: #### N BOX #### [facility] [address] [place] [address] Dr. Jani Haywood TYPE AND SCREENon 07-02-2022 TYPE AND SCREEN Negative Normal [facility] Comment on above: Performed By: #### A 1C #### [facility] [address] [place] [address] Dr. Jani Haywood US PREG TVon 06-18-2022 [...] RIMMA BATRES Date: 2022-06-18 16:09 Normal [facility] PAP ACOG PANEL 2: 30 to 65on 12-03-2021 . . Normal [facility] Comment on above: Result Comment: Perf ormed at: WB Performed By: #### [id number] #### [facility] [address] [place] [address] Dr. Jani Haywood Age Gdln ACOG Testing 30-65 [facility] Comment on above: Performed By: #### [id number] #### [facility] [address] [place] [address] Dr. Jani Haywood DIAGNOSIS: Comment Normal [facility] Comment on above: Result Comment: NEGA TIVE FOR INTRAEPITHELIAL LESION OR MALIGNANCY. Performed at: WB Performed By: #### [id number] #### [facility] [address] [place] [address] Dr. Jani Haywood HPV Aptima Negative Normal Negative [facility] Comment on above: Result Comment: This nucleic acid amplification test detects fourteen high-risk HPV types (16,18,31,33,35,39,45,51,52,56,58,59,66,68) without differentiation. Performed at: =G Performed By: #### [id number] #### [facility] [address] [address] [address] Jani Haywood Methodology: Comment Normal [facility] Comment on above: Result Comment: This liquid based ThinPrep(R) pap test was screened with the use of an image guided system. Performed at: WB Performed By: #### [id number] #### [facility] [address] [place] [address] Dr. Jani Haywood Note: Comment Normal [facility] Comment on above: Result Comment: The Pap smear is a screening test designed to aid in the detection of premalignant and malignant conditions of the uterine cervix. It is not a diagnostic procedure and should not be used as the sole means of detecting cervical cancer. Both false-positive and false-negative reports do occur. . Performed at: WB Performed By: #### [id number] #### [facility] [address] [address] [address] Jani Haywood Performed by: Comment Normal [facility] Comment on above: Result Comment: Nikki Schwab, Camera Technician (ASCP) Performed at: WB Performed By: #### [id number] #### [facility] [address] [address] [address] Jani Haywood Specimen adequacy: Comment Normal [facility] Comment on above: Result Comment: Sati sfactory for evaluation. Endocervical and/or squamous metaplastic cells (endocervical component) are present. Performed at: WB Performed By: #### [id number] #### [facility] [address] [address] [address] Jani Haywood Vital Signs Date Time Vital Sign Value Performing Clinician Facility 07-30-2023 09:32-0500 Body mass index (BMI) [Ratio] 25.88 kg/m2 [employer] Work Phone: [facility] 07-30-2023 09:32-0500 Body weight 66.28 kg [employer] Work Phone: [facility] 07-30-2023 09:32-0500 Diastolic blood pressure 60 mm[Hg] Ivan Pollo DO Work Phone: [facility] 07-30-2023 09:32-0500 Systolic blood pressure 100 mm[Hg] Ivan Pollo [employer] Work Phone: [facility] 07-23-2023 14:33-0500 Body mass index (BMI) [Ratio] 26.24 kg/m2 Terese REYES Work Phone: [facility] 07-23-2023 14:33-0500 Body weight 67.19 kg Terese REYES Work Phone: [facility] 07-23-2023 14:33-0500 Diastolic blood pressure 68 mm[Hg] Terese REYES Work Phone: [facility] 07-23-2023 14:33-0500 Systolic blood pressure 110 mm[Hg] Terese REYES Work Phone: [facility] 11-24-2021 14:10-0400 Body height 160.02 cm Megan Oconnor Other [employer] Other 11-24-2021 14:10-0400 Body mass index (BMI) [Ratio] 20.55 kg/m2 Megan Oconnor Other [employer] Other 11-24-2021 14:10-0400 Body temperature 96.9 [degF] Megan Oconnor Other [employer] Other 11-24-2021 14:10-0400 Body weight 52.62 kg Megan Oconnor Other [employer] Other 11-24-2021 14:10-0400 SaO2% (BldA) [Mass fraction] 97 % Megan Oconnor Other [employer] Other Encounters Encounter Date Encounter Type Care Provider Facility Start: 07-30-2023 End: 07-30-2023 ambulatory IVAN POLLO Not Available Start: 07-30-2023 End: 07-30-2023 flow sheet Ivan Pollo DO Work Phone: [facility] Comment on above: Third trimester preg luan; Small for gestational age (SGA) Start: 07-23-2023 End: 07-23-2023 ambulatory TERESE AGUILA Not Available Start: 07-23-2023 End: 07-23-2023 flow sheet Terese REYES Work Phone: [facility] Comment on above: Low blood pressure r eading; Dizziness; Feeling faint; Third trimester Start: 07-21-2023 End: 07-21-2023 ambulatory YULISSA JAIME Facility:[facility] Start: 07-15-2023 End: 07-15-2023 ambulatory TERESE AGUILA Not Available Start: 07-01-2023 End: 07-01-2023 ambulatory IVAN POLLO Not Available Start: 06-18-2023 End: 06-18-2023 ambulatory TERESE AGUILA Not Available Start: 05-20-2023 End: 05-20-2023 ambulatory IVAN POLLO Not Available Start: 10-10-2022 Telephone encounter Leo [facility] [place] 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 Start: 10-09-2022 ambulatory Yulissa WOOD Work Phone: Audiology Start: 09-24-2022 End: 09-24-2022 ambulatory RIMMA STERLING Facility:[facility] Start: 09-24-2022 End: 09-24-2022 Patient encounter procedure Rimma Sterling PAAnuradha Work Phone: Otolaryngology Comment on above: Cochlear implant in place (Primary Dx); Sensorineural hearing loss, asymmetrical; Sensorineural hearing loss, bilateral Start: 07-29-2022 End: 07-30-[address] ARIEL RAJAN Facility:[facility] Start: 07-18-2022 End: 07-18-[address] ROSA CARTER Facility:[facility] Start: 07-17-2022 Encounter for preprocedural laboratory examination DR ROSA CARTER [facility] Start: 07-16-2022 End: 07-17-[address] ROSA CARTER Facility:[facility] Start: 07-16-2022 End: 07-17-2022 Encounter for preprocedural laboratory examination DR ROSA CARTER Facility:[facility] Start: 07-02-2022 End: 07-03-[address] ROSA CARTER Facility:[facility] Start: 06-18-2022 End: 06-19-[address] ROSA CARTER Facility:[facility] Start: 11-27-2021 End: 11-27-[address] ROSA CARTER Facility:[facility] Start: 11-24-2021 End: 11-24-2021 ambulatory Megan Oconnor Other [employer] Other Start: 11-24-2021 Office outpatient vi sit [...] (3 - PPSV23 if available, else PCV20) [facility] Start: 04-22-2028 Screening for malign ant neoplasm of cervix [facility] Start: 04-26-2024 End: 04-26-2024 Patient encounter procedure 04/26/2024 9:00 AM EST Office Visit [facility] [address] [place] [id number] Ivan Abad, DO [address] [place] [address] [facility] Start: 08-13-2023 End: 08-13-2023 Patient encounter procedure 08/13/2023 11:20 AM EST Routine [facility] [address] [place] [id number] Ivan Abad, DO [address] [place] [address] [facility] Start: 07-30-2023 End: 07-30-2024 US biophysical profile w non stress test US biophysical profile w non stress test Imaging Routine Small for gestational age (SGA) Expected: 07/30/2023 (Approximate), Expires: 07/30/2024 [facility] Work Phone: Comment on above: Expected: 07/30/2023 (Approximate), Expires: 07/30/2024 Start: 07-30-2023 End: 07-30-2023 Patient encounter procedure 07/30/2023 9:20 AM EST Routine [facility] [address] [facility] [id number] Ivan Abad, DO [address] [facility] [address] [place], [place] [id number] [facility] Start: 07-23-2023 End: 07-23-2023 Professional / ancillary services management 07/23/2023 3:00 PM EST Ancillary Procedure [facility] [address] [place] [id number] [facility] Start: 02-20-2023 Influenza vaccination [facility] Start: 06-22-2022 DEPRESSION ASSESSMENT DEPRESSION ASS ESSMENT [facility] Start: 10-20-2021 COVID-19 VACCINE (3 - Booster for Pfizer series) COVID-19 VACCINE (3 - Booster for Pfizer series) [facility] Start: 2019 Mammography MAMMOGRAM [facility] Start: 2019 Screening for malign ant neoplasm of breast Mammogram [facility] Start: 11-17-2009 HPV TESTING HPV TESTING [facility] Start: 11-17-2000 PAP TESTING PAP TESTING [facility] Start: 11-17-1998 Urine microalbumin profile DTAP,TDAP,TD (1 - Tdap) [facility] Start: 11-17-1997 HEPATITIS C SCREENING HEPATITIS C SC JOSE [facility] Start: 11-17-1997 HIV SCREENING HIV SCREENING [facility] Start: 1980 HEPATITIS B (1 of 3 - 3-dose series) HEPATITIS B (1 of 3 - 3-dose series) [facility] Immunizations Immunization Date Immunization Notes Care Provider Fa cility 03-22-2020 influenza virus vacc ine, unspecified formulation Terese REYES Work Phone: [facility] 08-13-2017 pneumococcal polysaccharide vaccine, 23 valent Rimma Sterling PA-C Work Phone: [facility] 08-10-2014 pneumococcal conjuga te vaccine, 13 valent Rimma Sterling PA-C Work Phone: [facility] Payers Date Payer Category Payer Unknown [id number] 2022 Unknown [id number] 1980 Unknown [id number] 2.16.84 [id number] 1979 Unknown [id number] 2.16.84 [id number] 1979 Unknown [id number] 2.16.84 [id number] 1979 Unknown [id number] 2.16.84 [id number] 1979 Unknown [id number] 2.16.84 [id number] 1979 Unknown [id number] 2.16.84 [id number] 1979 Unknown [id number] 2.16.84 [id number] 1979 Unknown [id number] 2.16.84 [id number] 1979 Unknown [id number] 2.16.84 0.1.149771.3.579.2.1259 1979 Unknown [id number] 2.16.84 0.1.804656.3.579.2.1259 1979 Unknown [id number] 2.16.84 0.1.906472.3.579.2.1259 1979 Unknown [id number] 2.16.840 .[id number] 1979 Unknown [id number] 2.16.840 .[id number] 1960 [facility] [id number] Unknown [id number] 2.16.84 [id number] Social History Date Type Detail Facility Start: 03-16-2023 Sex Assigned At [employer] Other Start: 09-24-2022 End: 03-16-2023 Tobacco smoking status NHIS Never smoked tobacco [facility] Start: 09-24-2022 End: 03-16-2023 Tobacco use and exposure Smokeless tobacco non-user [facility] Start: 09-24-2022 Alcohol intake Current non-drinker of alcohol (finding) [facility] Start: 1980 Sex Assigned At Female [facility] Start: 07-23-2023 End: 07-30-2023 Alcohol intake Ex-drinker (finding) [facility] Start: 03-16-2023 History of Social function [facility] Start: 04-22-2023 Alcohol Comment occasional alcohol use, Caffeine intake: none [facility] Start: 12-25-2022 [facility] Start: 01-21-2023 Gender identity Identifies as female gender (finding) [facility] Start: 01-21-2023 Sexual orientation Heterosexual (finding) [facility] Medical Equipment Procedure Code Equipment Code Equipment Original Text Equipment Identifier Dates [id number] Implant - [id number] Start: 09-02-2017 Comment on above: Description: [...] Ivan Abad DO documented in this encounter [facility] 07-23-2023 History of Presen t illness [...] of: ERIC Smallwood documented in this encounter [facility] 07-21-2023 Note HNO ID: [id number] Author: YULISSA JAIME AUD Service: ? Author Type: Resident Advisor Type: Progress Notes Filed: 07/21/2023 08:47 Note Text: [facility] [place] [facility] COCHLEAR IMPLANT ADULT PROGRAMMING Name: Amy ALFARO [facility]#: [id number] Date of Service: July 21, 2023 Date of : 1980 Age: [age] year old COCHLEAR IMPLANT INFORMATION (see below for all device details) Updated: July 21, 2023 Right ear: Phonak Audeo [employer] Hearing Aid that was fit at an outside facility (November 2021) and is being managed by that facility. Left ear: External Processor: Cochlear Claros [id number] (Nucleus 8; upgraded around January 2023) Processor SN: [id number] Processor ([id number]) SN: [id number] Magnet strength: 2 Internal Device: Cochlear CI532 Profile with Slim Modiolar Electrode Array Internal Device SN: [id number] Inactive electrodes: None Surgery Date: 09/02/2017 Initial [...] 6; Sensitivity: 12) before programming. See the [employer] Audiogram for obtained thresholds. Speech perception testing was completed at 60 engineer intern using recorded stimuli in the sound field at 0 degrees azimuth. NOTE: The contralateral ear was not plugged and muffed during testing. The following testing and results were obtained: Ktndbirxm-Vtwpqrj-Jenkzvuuv Words (CNC) Test Condition List # Phonemes [...] hours. * Revie (more content not included)... [facility] 10-10-2022 Miscellaneous Notes Parks And Recreation Manager: Katerina Mina Patient: Hasmukh Alfaro 1980 Clinic: [facility] Resident Advisor: Dr. Yulissa Jaime Appointment Length: 45 Minutes What are you looking to accomplish?: I d like to learn more about the Nucleus 8 and the process of upgrading Recipient's Stated Reason for Upgrading Clinic Request - Resident Advisor recommended it [employer] - Processor more [...] steps are Acquisition Methods Recipient will receive Zyi-bb-Ecmjoi cost estimate once order placed Next Steps If recipient decides to move forward with pursuing a Nucleus 8 upgrade and provides us with the necessary order information, we will start an order on their behalf. You will hear from Cochlear s Parts Sales Associate team, via email/DocuSign to gain your approval or regarding an LMN to allow this patient to move forward in the process. Following completion of the upgrade process, I will invite the recipient to schedule time for a complimentary onboarding with our [employer] team so they can begin to maximize the use of their new Cochlear equipment. documented in this encounter [facility] 10-09-2022 Note HNO ID: [id number] Author: ISRAEL Champion Service: ? Author Type: Resident Advisor Type: Progress Notes Filed: 10/09/2022 12:58 PM [...] any questions. Upgrade Consultation Clinic Patient Report Parks And Recreation Manager: Katerina Mina Patient: Hasmukh Alfaro 1980 Clinic: [facility] Resident Advisor: Dr. Yulissa Jaime Appointment Length: 45 Minutes What are you looking to accomplish?: I?d like to learn more about the Nucleus 8 and the process of upgrading Recipient's Stated Reason for Upgrading ? Clinic Request - Resident Advisor recommended it ? [employer] - Processor [...] are Acquisition Methods ? Recipient will receive Met-xk-Bdlayv cost estimate once order placed Next Steps ? If recipient decides to move forward with pursuing a Nucleus 8 upgrade and provides us with the necessary order information, we will start an order on their behalf. You will hear from Cochlear?s Parts Sales Associate team, via email/DocuSign to gain your approval or regarding an LMN to allow this patient to move forward in the process. Following completion of the upgrade process, I will invite the recipient to schedule time for a complimentary onboarding with our [employer] team so they can begin to maximize the use of their new Cochlear equipment. Warm Regards, Eloisa Vazquez, [facility]/A Clinical Resident Advisor [facility] 10-09-2022 History of Presen t [...] any questions. Upgrade Consultation Clinic Patient Report Parks And Recreation Manager: Katerina Mina Patient: Hasmukh Alfaro 1980 Clinic: [facility] Resident Advisor: Dr. Yulissa Jaime Appointment Length: 45 Minutes What are you looking to accomplish?: I d like to learn more about the Nucleus 8 and the process of upgrading Recipient's Stated Reason for Upgrading Clinic Request - Resident Advisor recommended it [employer] - Processor more [...] steps are Acquisition Methods Recipient will receive Wkb-yu-Dgznjr cost estimate once order placed Next Steps If recipient decides to move forward with pursuing a Nucleus 8 upgrade and provides us with the necessary order information, we will start an order on their behalf. You will hear from Cochlear s Parts Sales Associate team, via email/DocuSign to gain your approval or regarding an LMN to allow this patient to move forward in the process. Following completion of the upgrade process, I will invite the recipient to schedule time for a complimentary onboarding with our [employer] team so they can begin to maximize the use of their new Cochlear equipment. Warm Regards, Eloisa Vazquez, [facility]/A Clinical Resident Advisor documented in this encounter [facility] 09-24-2022 Note HNO ID: [id number] Author: Rimma Sterling PA-C Service: ? Author Type: Physician Demurrage Clerk Type: Progress Notes Filed: 09/24/2022 9:53 AM Note Text: History of Present Illness Ms. AMY ALFARO is a 41 year old year old female presenting for: referred by SELF And is a patient of DO Abel Card DO [address] [place] [address] Communication will be via the electronic record [...] (FLONASE) 50 mcg/actuation nasal spray Use 1 [place] in each nostril as needed. multivitamin (DAILY [...] Medical Decision Making Level: 2 - Straightforward [facility] 09-24-2022 Instructions Rimma Sterling PA-C - 09/24/2022 9:[address] Audra Umanzor use his name on paperwork documented in this encounter [facility] 09-24-2022 History of Presen t illness Narrative History of Present Illness Ms. AMY ALFARO is a 41 year old year old female presenting for: referred by SELF And is a patient of DO Abel Card DO [facility] [place] [address] Communication will be via the electronic record [...] (FLONASE) 50 mcg/actuation nasal spray Use 1 [place] in each nostril as needed. multivitamin (DAILY [...] 2 - Straightforward documented in this encounter [facility] 07-18-2022 Note EXAMINATION: US PELV IS HISTORY: Surgical procedure COMPARISON: Ultrasound less than 14 weeks 07/16/2022 TECHNIQUE: Transabdominal and transvaginal sonographic examination. FINDINGS: Final images show an empty endometrial cavity. IMPRESSION: 1. No appreciable products of conception within endometrial cavity following dilation and curettage. Electronically authenticated by: ALEXI BRANCH Date: 2022-07-18 08:21 [facility] 11-24-2021 Evaluation note Encounter Date Diagnosis Assessment [...] Fungal rash of trunk (ICD-10 - B36.9) [employer] Other Evaluation note* Diagnosis Cochlear implant in place- Primary Other postprocedural status Sensorineural hearing loss, asymmetrical Sensorineural hearing loss, bilateral [facility] Diagnosis Low blood pressure reading Nonspecific low blood pressure reading Dizziness Dizziness and giddiness Feeling faint Third trimester state, incidental [facility] Diagnosis Third trimester state, incidental Small for gestational age (SGA) [facility] N[facility]ative - Reported* Type Description Date Medical History bilateral hearing loss Surgical History cochlear implant Surgical History D&C [employer] Other Summary Purpose Family History No Family History Records FoundNo Family History Records FoundNo Family History Records Found Advance Directives No Advanced Directives Records FoundNo Advanced Directives Records FoundNo Advanced Directives Records Found Additional Source Comments REASON FOR VISIT (unrecogniz ed section and content) Reason Comments Hearing Loss New. Self referral. CI LT side. Last audio 03/18/22. Denies otalgia and otorrhea. 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 Reason Comments Dizziness Hypotension Reason Comments Routine Visit INFORMATION SOURCE (unrecogn ized section and content) DATE CREATED AUTHOR 07/30/2022 [facility] DATE CREATED AUTHOR AUTHOR'S ORGANIZ ATION 07/22/2023 [facility] DATE CREATED AUTHOR AUTHOR'S ORGANIZ ATION 07/31/2023 [facility] EPIC Source Comments (unrecognize d section and content) In the event this informatio n is protected by the Federal Confidentiality of Alcohol and Drug Abuse Patient Records regulations: The Federal rules restrict any use of the information to criminally investigate or prosecute any alcohol or drug abuse patient.[facility] the event this information is protected by the Federal Confidentiality of Alcohol and Drug Abuse Patient Records regulations: The Federal rules restrict any use of the information to criminally investigate or prosecute any alcohol or drug abuse patient.[facility] the event this information is protected by the Federal Confidentiality of Alcohol and Drug Abuse Patient Records regulations: The Federal rules restrict any use of the information to criminally investigate or prosecute any alcohol or drug abuse patient.[facility] Care Teams (unrecognized sec tion and content) Chemical Worker Relationship Specialty Start Date End Date Abel Sun PCP - General Family Medicine 03/15/14 Chemical Worker Relationship Specialty Start Date End Date Abel Sun PCP - General Family Medicine 03/15/14 Chemical Worker Relationship Specialty Start Date End Date Abel Sun PCP - General Family Medicine 03/15/14 Chemical Worker Relationship Specialty Start Date End Date Ariel Rajan MD [address] [place] [address] PCP - General 02/16/23 Chemical Worker Relationship Specialty Start Date End Date Ariel Rajan MD [address] [place] [address] PCP - General 02/16/23 FOR RECORDS PERTAINING [...] BE BASED ON THE PRIMARY CLINICAL RECORDS. [facility] [facility]. provides no warranty or guarantee of the accuracy or completeness of information in this document.
== END 2023-08-20 11:04 | disposition home or self-care (01) ==
LOC: NOMS 11:03
PROVIDERS: PCP Family Medicine; Visit Provider Physician Assistant
DX: O36.5930 Maternal care for other known or suspected poor fetal growth, third trimester, not applicable or unspecified (principal); Z3A.36 36 weeks gestation of pregnancy
CPT/HCPCS: 76816; 87081

== ENCOUNTER 2023-08-20 19:15 | Outpatient (REF) | payer OTHER, SELFPAY | END 2023-08-20 19:16 | disposition home or self-care (01) | LOC: LAB 19:15 | PROVIDERS: PCP Family Medicine; Visit Provider Obstetrics & Gynecology | DX: Z34.93 Encounter for supervision of normal pregnancy, unspecified, third trimester (principal) | CPT/HCPCS: 87081 ==

== ENCOUNTER 2023-08-21 07:10 | Outpatient (OUT) | payer OTHER, SELFPAY ==
--- OUTSIDE RECORDS SUMMARY | 2023-08-21 07:32 | XMS_ITS | CCD ---
Author Name Unknown Address [address] [place] [address] Organization [facility] Care Team Providers Care Chemical Plant Manager Name Role Phone Megan Oconnor Unavailable ANDRES, [...] KARASIK, DR LEE Consulting Unavailable WEST, DR IRMMA Harrison Consulting Unavailable KARASIK, DR LEE Admitting [...] Unavailab Ariel Rich MD Primary Care Provider [phone] TERESE AGUILA Attending Unavailable IVAN ABAD Attending Unavailable TERESE AGUILA Attending Unavailable TERESE AGUILA Attending Unavailable IVAN ABAD Attending Unavailable IVAN ABAD Attending Unavailable Allergies Allergy Classification Reported Allergen(s) Allergy Type Date of Onset Reaction(s) Facility (4 sources) Seasonal allergy; Translations: [SEASONAL ALLERGIES] Allergy to substance 4 Cough [facility] (4 sources) Octacosanol Drug Allergy 4 Cough [facility] (4 sources) Other Propensity to adverse reactions 3 Unknown [facility] Medications Current Medications Medication Drug Class(es) Dates Sig (Normalized) Sig (Original) [id number] 200 actuat albuterol 0.09 mg/actuat metered dose [...] on above: Take 1 capsule by mo [facility] as needed. fluticasone propionate 0.05 mg/actuat metered dose nasal spray (3 sources) Corticosteroid fluticasone (FLONASE) 50 mcg/actuation nasal spray Indications: Bilateral sensorineural hearing loss , Autoimmune disorder of inner ear Use 1 [place] in each nostril as needed. 0 Active Comment on above: Use 1 [place] in each nostril as needed. LOW-DOSE ASPIRIN PO (2 sources) Start: 04-02-2023 End: 07-23-2023 LOW-DOSE ASPIRIN PO multivitamin (DAILY MULTIPLE) tablet (3 sources) take 1 tablet by mouth once daily multivitamin (DAILY MULTIPLE) tablet Take 1 tablet by mouth once daily. 0 Active Comment on above: Take 1 tablet by [facility] once daily. predniSONE 10 mg oral [...] low weight; and growth retardation (2 sources) Kkgll-nje-brbro baby; Translations: [[place] small for gestational age, unspecified weight] 07-30-2023 [...] Negative - 4(70) +++ mg/dL [facility] Blood, UA Positive Negative - 50 Bobby/mcL [facility] Comment on above: trace-intact Clarity, UA Clear [facility] re Color, UA Yellow [facility] e Glucose, UA Negative Negative - 1999(110) ++++ mg/dL [facility] Interpretation and review of laboratory results Abnormal [facility] Ketones, UA Negative Negative - 160(16) ++++ mg/dL [facility] Leukocytes, UA Positive Negative - 500+++ Suzette/mcL [facility] Comment on above: small Nitrite, UA Negative Negative - Positive [facility] pH, UA 6.0 5 - 9 [facility], [facility]A Negative Negative - 1999(20) ++++ mg/dL [facility] Spec Grav, UA 1.010 1 - 1.03 [facility] Urobilinogen, UA 0.2 0.2 - 12 mg/dL [facility] Urinalysis macro (dipstick) panel (U)on 07-23-2023 Bilirubin, UA Negative Negative - 4(70) +++ mg/dL [facility] Blood, UA Negative Negative - 50 Bobby/mcL [facility] Clarity, UA Clear [facility] re Color, UA Yellow [facility] Glucose, UA Negative Negative - 1999(110) ++++ mg/dL [facility] Interpretation and review of laboratory results Abnormal [facility] Ketones, UA Negative Negative - 160(16) ++++ mg/dL [facility] Leukocytes, UA Positive Negative - 500+++ Suzette/mcL [facility] Comment on above: small Nitrite, UA Negative Negative - Positive [facility] pH, UA 7.0 5 - 9 [facility] Protein, UA Negative Negative - 1999(20) ++++ mg/dL [facility] Spec Grav, UA 1.015 1 - 1.03 [facility] Urobilinogen, UA 0.2 0.2 - 12 mg/dL [facility]-21-2023 CNOV Office Visit (MALISSAUCR ) AMY ALFARO ([id number]) 1980 F Date Time Provider Department 07/21/23 7:30 AM YULISSA JAIME During your visit today, we recorded the following information about you: Yulissa Jaime AUD 07/21/2023 8:47 AM Signed [facility] [place] [facility] COCHLEAR IMPLANT ADULT PROGRAMMING Name: Amy ALFARO CC#: [id number] Date of Service: July 21, 2023 Date of : 1980 Age: [age] year old COCHLEAR IMPLANT INFORMATION (see below for all device details) Updated: July 21, 2023 Right ear: Phonak Audeo RITE Hearing Aid that was fit at an outside facility (November 2021) and is being managed by that facility. Left ear: External Processor: Cochlear [employer] [id number] (Nucleus 8; upgraded around January 2023) Processor SN: [id number] Processor ([id number]) SN: [id number] Magnet strength: 2 Internal Device: Cochlear [id number] Profile with Slim Modiolar Electrode Array Internal Device SN: [id number] Inactive electrodes: None Surgery Date: 09/02/2017 Initial activation date: 09/29/217 Surgeon: Reyna Yenug M.D. Accessories: Remote Control (CR310) Mini Microphone [...] 6; Sensitivity: 12) before programming. See the Beepi Audiogram for obtained thresholds. Speech perception testing was completed at 60 recreational counselor using recorded stimuli in the sound field at 0 degrees azimuth. NOTE: The contralateral ear was not plugged and muffed during testing. The following testing and results were obtained: Axgugipjw-Ojafoav-Msi sonant Words (CNC) Test Condition List # [...] Shoul (more content not included)... Normal [facility] Ada 10-10-2022 JEANN Telephone (HNQ) DOMINICAMY Shravan ([id number]) 1980 F Date Time Provider Department 10/10/22 LEO ATKINSON During your visit today, we recorded the following information about you: Leo Huitrononnell 10/10/2022 3:52 PM Signed Software Qa System Specialist: Katerina Mina Patient: Hasmukh Alfaro 1980 Clinic: [facility] Foam Machine Operator: Dr. Yulissa Jaime Appointment Length: 45 Minutes What are you looking to accomplish?: I?d like to learn more about the Nucleus 8 and the process of upgrading Recipient's Stated Reason for Upgrading ? Clinic Request - Foam Machine Operator recommended it ? Useful Life - [...] are Acquisition Methods ? Recipient will receive Ypf-vu-Motczy cost estimate once order placed Next Steps ? If recipient decides to move forward with pursuing a Nucleus 8 upgrade and provides us with the necessary order information, we will start an order on their behalf. 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 - fluticasone (FLONASE) 50 mcg/actuation nasal spray Use 1 [place] in each nostril as needed. - multivitamin [...] Encounter Status:Closed by LEO ATKINSON on 10/10/22 [facility] Emily 09-24-2022 CNOV Office Visit (OTOLCR ) AMY ALFARO ([id number]) 1980 F Date Time Provider Department 09/24/22 9:30 AM RIMMA STERLING OTVIDAL During your visit today, we recorded the following information about you: Rimma Sterling PA-C 09/24/2022 9:53 AM Signed History of Present Illness Ms. AMY ALFARO is a 41 year old year old female presenting for: referred by SELF And is a patient of DO Abel Card DO [address] [place] [address] Communication will be via the electronic record [...] (FLONASE) 50 mcg/actuation nasal spray Use 1 [place] in each nostril as needed. multivitamin (DAILY [...] 1 (more content not included)... Normal [facility] CBC AUTO DIFFon 07-29-2022 BASO # 0.0 103/ul Normal 0.0-0.1 [facility] Comment on above: Performed By: #### C BC #### [facility] [address] [place] [address] Dr. Jani Haywood Basophils/100 WBC (Bld) 0.6 % Normal 0.2-2.0 [facility] Comment on above: Performed By: #### C BC #### [facility] [address] [place] [address] Dr. Jani Haywood EO # 0.1 103/ul Normal 0.0-0.7 [facility] Comment on above: Performed By: #### C BC #### [facility] [address] [place] [address] Dr. Jani Haywood Eosinophils/100 WBC (Bld) 2.5 % Normal 0.9-7.0 [facility] Comment on above: Performed By: #### C BC #### [facility] [address] [place] [address] Dr. Jani Haywood Erythrocyte distribution width (RBC) [Ratio] 13.7 % Normal 11.0-15.0 [facility] Comment on above: Performed By: #### C BC #### [facility] [address] [place] [address] Dr. Jani Haywood Hematocrit (Bld) [Volume fraction] 40.3 % Normal 36.0-48.0 [facility] Comment on above: Performed By: #### C BC #### [facility] [address] [place] [address] Dr. Jani Haywood Hemoglobin (Bld) [Mass/Vol] 12.7 g/dL Normal 12.0-16.0 [facility] Comment on above: Performed By: #### C BC #### [facility] [address] [place] [address] Dr. Jani Haywood IG # 0.01 10e3/ul Normal 0.00-0.03 [facility] Comment on above: Performed By: #### C BC #### [facility] [address] [place] [address] Dr. Jani Haywood IG % 0.2 % Normal 0.0-0.5 [facility] Comment on above: Performed By: #### C BC #### [facility] [address] [place] [address] Dr. Jani Haywood LYMPH # 1.8 103/ul Normal 1.2-3.8 [facility] Comment on above: Performed By: #### C BC #### [facility] [address] [place] [address] Dr. Jani Haywood Lymphocytes/100 WBC (Bld) 35.2 % Normal 20.5-60.0 [facility] Comment on above: Performed By: #### C BC #### [facility] [address] [place] [address] Dr. Jani Haywood MANUAL DIFF REQ NO Normal [facility] Comment on above: Performed By: #### C BC #### [facility] [address] [place] [address] Dr. Jani Haywood MCH (RBC) [Entitic mass] 30.5 pg Normal 26.7-34.0 [facility] Comment on above: Performed By: #### C BC #### [facility] [address] [place] [address] Dr. Jani Haywood MCHC (RBC) [Mass/Vol] 31.5 g/dL Normal 29.9-35.2 [facility] Comment on above: Performed By: #### C BC #### [facility] [address] [place] [address] Dr. Jani Haywood MCV (RBC) [Entitic vol] 96.9 fL Normal 81.0-99.0 [facility] Comment on above: Performed By: #### C BC #### [facility] [address] [place] [address] Dr. Jani Haywood MONO # 0.4 103/ul Normal 0.3-0.8 [facility] Comment on above: Performed By: #### C BC #### [facility] [address] [place] [address] Dr. Jani Haywood Monocytes/100 WBC (Bld) 8.1 % Normal 1.7-12.0 [facility] Comment on above: Performed By: #### C BC #### [facility] [address] [place] [address] Dr. Jani Haywood NEUT # 2.8 103/ul Normal 1.4-6.5 [facility] Comment on above: Performed By: #### C BC #### [facility] [address] [address] [address] Jani Haywood Neutrophils/100 WBC (Bld) 53.4 % Normal 43.0-75.0 [facility] Comment on above: Performed By: #### C BC #### [facility] [address] [address] [address] Jani Haywood Platelet mean volume (Bld) [Entitic vol] 10.0 fL Normal 9.5-13.5 [facility] Comment on above: Performed By: #### C BC #### [facility] [address] [address] [address] Jani Haywood PLT 271 103/ul Normal 150-450 [facility] Comment on above: Performed By: #### C BC #### [facility] [address] [place] [address] Dr. Jani Haywood RBC 4.16 106/ul Critically low 4.20-5.40 [facility] Comment on above: Performed By: #### C BC #### [facility] [address] [place] [address] Dr. Jani Haywood WBC 5.2 103/ul Normal 4.0-11.0 [facility] Comment on above: Performed By: #### C BC #### [facility] [address] [place] [address] Dr. Jani Haywood IRONon 07-29-2022 Iron [Mass/Vol] 64.0 ug/dL Normal 50.0-170.0 [facility] Comment on above: Performed By: #### A 1C #### [facility] [address] [place] [address] Dr. Jani Haywood PROF 14(COMP METB)on 023 Albumin [Mass/Vol] 3.5 g/dL Normal 3.4-5.[address] [facility] Comment on above: Performed By: #### C MP #### [facility] [address] [place] [address] Dr. Jani Haywood Albumin/Globulin [Mass ratio] 0.9 {ratio} Normal [facility] Comment on above: Performed By: #### C MP #### [facility] [address] [address] [address] Jani Haywood ALP [Catalytic activity/Vol] 73 U/L Normal 46-116 [facility] Comment on above: Performed By: #### C MP #### [facility] [address] [address] [address] Jani Haywood ALT [Catalytic activity/Vol] 12 U/L Critically low 14-59 [facility] Comment on above: Performed By: #### C MP #### [facility] [address] [address] [address] Jani Haywood Anion gap [Moles/Vol] 11.0 mmol/L Normal [facility] Comment on above: Performed By: #### C MP #### [facility] [address] [place] [address] Dr. Jani Haywood AST [Catalytic activity/Vol] 13 U/L Critically low 15-37 [facility] Comment on above: Performed By: #### C MP #### [facility] [address] [address] [address] Jani Haywood Bilirubin [Mass/Vol] 0.5 mg/dL Normal 0.2-1.0 [facility] Comment on above: Performed By: #### C MP #### [facility] [address] [place] [address] Dr. Jani Haywood Calcium [Mass/Vol] 8.6 mg/dL Normal 8.5-10.[address] [facility] Comment on above: Performed By: #### C MP #### [facility] [address] [address] [address] Jani Haywood Chloride [Moles/Vol] 105 mmol/L Normal 98-107 [facility] Comment on above: Performed By: #### C MP #### [facility] [address] [address] [address] Jani Haywood CO2 [Moles/Vol] 28.8 mmol/L Normal 21.0-32.0 [facility] Comment on above: Performed By: #### C MP #### [facility] [address] [address] [address] Jani Haywood Creatinine [Mass/Vol] 0.87 mg/dL Normal 0.55-1.02 [facility] Comment on above: Performed By: #### C MP #### [facility] [address] [address] [address] Jani Haywood EGFR-AF KU[place]I >60 Normal >=60 [facility] Comment on above: Performed By: #### C MP #### [facility] [address] [address] [address] Jani Haywood EGFR-NON AF [place] >60 Normal >=60 [facility] Comment on above: Performed By: #### C MP #### [facility] [address] [place] [address] Dr. Jani Haywood Globulin (S) [Mass/Vol] 3.7 g/dL Normal [facility] Comment on above: Performed By: #### C MP #### [facility] [address] [place] [address] Dr. Jani Haywood Glucose [Mass/Vol] 95 mg/dL Normal 74-106 [facility] Comment on above: Performed By: #### C MP #### [facility] [address] [address] [address] Jani Haywood Potassium [Moles/Vol] 3.8 mmol/L Normal 3.5-5.1 [facility] Comment on above: Performed By: #### C MP #### [facility] [address] [address] [address] Jani Haywood Protein [Mass/Vol] 7.2 g/dL Normal 6.4-8.2 [facility] Comment on above: Performed By: #### C MP #### [facility] [address] [place] [address] Dr. Jani Haywood Sodium [Moles/Vol] 141 mmol/L Normal 136-145 [facility] Comment on above: Performed By: #### C MP #### [facility] [address] [place] [address] Dr. Jani Haywood Urea nitrogen [Mass/Vol] 12.0 mg/dL Normal 7.0-18.0 [facility] Comment on above: Performed By: #### C MP #### [facility] [address] [place], [place] [address] Dr. Jani Haywood Urea nitrogen/Creatinine [Mass ratio] 13.8 mg/mg Normal [facility] Comment on above: Performed By: #### C MP #### [facility] [address] [place], [place] [address] Dr. Jani Haywood Covid-19 PCR ([facility])on 06-23 SARS-CoV-2 (COVID-19) RNA CAROLE+probe Ql (Unsp spec) Not detected Normal NOT DETECTED [facility] Comment on above: Result Comment: This test is not yet approved or cleared by the [place] FDA. When there are no FDA-approved or cleared tests available, and other criteria are met, FDA can make tests available under an emergency access mechanism called an Emergency Use Authorization (EUA). The EUA for this test is supported by the [place] of Health and Human Service's (HHS's) declaration [...] SARS-CoV-2. Performed By: #### C VDTB #### [facility] [address] [place], [place] [address] Dr. Jani Haywood US PREG <14 WKSon [...] was notified of these findings by the aboriginal ceremonial celebrant at time of imaging. Electronically authenticated by: ALEXI BRANCH Date: 2022-07-16 13:36 Normal [facility] HEP B SURFACE ANTIGEN SCREEN on 07-03-2022 HBsAg Screen Negative Normal Negative [facility] Comment on above: Performed By: #### A 1C #### [facility] [address] [place] [address] Dr. Jani Haywood HEPATITIS C VIRUS AB W/ REFL EX QUANTon 07-03-2022 HCV AB <0.1 Normal 0.0-0.9 [facility] Comment on above: Performed By: #### H CVPCRR #### [facility] [address] [place] [address] Dr. Jani Haywood Interpretation: Comment Normal [facility] Comment on above: Result Comment: Nega tive Not infected with HCV, unless recent infection is suspected or other evidence exists to indicate HCV infection. Performed By: #### H CVPCRR #### [facility] [address] [place] [address] Dr. Jani Haywood HIV 1 AND 2 WITH REFLEXon HIV Screen 4th Generation wRfx Non-Reactive Normal Non Reactive [facility] Comment on above: Result Comment: HIV Negative HIV-1/HIV-2 antibodies and HIV-1 p24 antigen were NOT detected. There is no laboratory evidence of HIV infection. Performed By: #### H IV12 #### [facility] [address] [place] [address] Dr. Jani Haywood RPR QUANTon 07-03-2022 Rapid Plasma Reagin, Quant Non-Reactive Normal NonRea<1:1 [facility] Comment on above: Result Comment: Plea se Note: This test does not meet current guidelines for screening and diagnosis of syphilis. This test is intended for following treatment response in patients being treated for syphilis infection. To screen for syphilis infection, a reflex cascade that includes both RPR and a treponema-specific assay should be utilized, such as Treponema pallidum (Syphilis) Screening [place] (759926) or Rapid Plasma Reagin (RPR) Test With Reflex to Quantitative RPR and Confirmatory Treponema pallidum Antibodies (944529). Performed By: #### R PRQ #### [facility] [address] [place] [address] Dr. Jani Haywood RUBELLA AB IGGon 07-03-2022 Rubella Antibodies, IgG 2.92 index Normal Immune >0.99 [facility] Comment on above: Result Comment: Non- immune <0.90 Equivocal 0.90 - 0.99 Immune >0.99 Performed By: #### A 1C #### [facility] [address] [place] [address] Dr. Jani Haywood CBC AUTO DIFFon 07-02-2022 BASO # 0.1 103/ul Normal 0.0-0.1 [facility] Comment on above: Performed By: #### C BC #### [facility] [address] [place] [address] Dr. Jani Haywood Basophils/100 WBC (Bld) 0.7 % Normal 0.2-2.0 [facility] Comment on above: Performed By: #### C BC #### [facility] [address] [place] [address] Dr. Jani Haywood EO # 0.1 103/ul Normal 0.0-0.7 [facility] Comment on above: Performed By: #### C BC #### [facility] [address] [place] [address] Dr. Jani Haywood Eosinophils/100 WBC (Bld) 1.2 % Normal 0.9-7.0 [facility] Comment on above: Performed By: #### C BC #### [facility] [address] [place] [address] Dr. Jani Haywood Erythrocyte distribution width (RBC) [Ratio] 13.7 % Normal 11.0-15.0 [facility] Comment on above: Performed By: #### C BC #### [facility] [address] [place] [address] Dr. Jani Haywood Hematocrit (Bld) [Volume fraction] 37.9 % Normal 36.0-48.0 [facility] Comment on above: Performed By: #### C BC #### [facility] [address] [place] [address] Dr. Jani Haywood Hemoglobin (Bld) [Mass/Vol] 12.6 g/dL Normal 12.0-16.0 [facility] Comment on above: Performed By: #### C BC #### [facility] [address] [place] [address] Dr. Jani Haywood IG # 0.02 10e3/ul Normal 0.00-0.03 [facility] Comment on above: Performed By: #### C BC #### [facility] [address] [place] [address] Dr. Jani Haywood IG % 0.3 % Normal 0.0-0.5 [facility] Comment on above: Performed By: #### C BC #### [facility] [address] [place] [address] Dr. Jani Haywood LYMPH # 1.6 103/ul Normal 1.2-3.8 [facility] Comment on above: Performed By: #### C BC #### [facility] [address] [place] [address] Dr. Jani Haywood Lymphocytes/100 WBC (Bld) 21.5 % Normal 20.5-60.0 [facility] Comment on above: Performed By: #### C BC #### [facility] [address] [place] [address] Dr. Jani Haywood MANUAL DIFF REQ NO Normal [facility] Comment on above: Performed By: #### C BC #### [facility] [address] [place] [address] Dr. Jani Haywood MCH (RBC) [Entitic mass] 30.4 pg Normal 26.7-34.0 [facility] Comment on above: Performed By: #### C BC #### [facility] [address] [place] [address] Dr. Jani Haywood MCHC (RBC) [Mass/Vol] 33.2 g/dL Normal 29.9-35.2 [facility] Comment on above: Performed By: #### C BC #### [facility] [address] [place] [address] Dr. Jani Haywood MCV (RBC) [Entitic vol] 91.3 fL Normal 81.0-99.0 [facility] Comment on above: Performed By: #### C BC #### [facility] [address] [place] [address] Dr. Jani Haywood MONO # 0.5 103/ul Normal 0.3-0.8 [facility] Comment on above: Performed By: #### C BC #### [facility] [address] [place] [address] Dr. Jani Haywood Monocytes/100 WBC (Bld) 6.6 % Normal 1.7-12.0 [facility] Comment on above: Performed By: #### C BC #### [facility] [address] [place] [address] Dr. Jani Haywood NEUT # 5.1 103/ul Normal 1.4-6.5 [facility] Comment on above: Performed By: #### C BC #### [facility] [address] [place] [address] Dr. Jani Haywood Neutrophils/100 WBC (Bld) 69.7 % Normal 43.0-75.0 [facility] Comment on above: Performed By: #### C BC #### [facility] [address] [place] [address] Dr. Jani Haywood Platelet mean volume (Bld) [Entitic vol] 10.2 fL Normal 9.5-13.5 [facility] Comment on above: Performed By: #### C BC #### [facility] [address] [place] [address] Dr. Jani Haywood PLT 281 103/ul Normal 150-450 [facility] Comment on above: Performed By: #### C BC #### [facility] [address] [place] [address] Dr. Jani Haywood RBC 4.15 106/ul Critically low 4.20-5.40 [facility] Comment on above: Performed By: #### C BC #### [facility] [address] [address] [address] Jani Haywood WBC 7.3 103/ul Normal 4.0-11.0 [facility] Comment on above: Performed By: #### C BC #### [facility] [address] [address] [address] Jani Haywood GLYCOHEMOGLOBIN A1Con 2022 ADA RECOMMENDATION SEE BELOW Normal [facility] Comment on above: Result Comment: ADA RECOMMENDED LIMIT 4.0 - 6.0 ADA THERAPEUTIC TARGET < 7.0 ACTION SUGGESTED > 7.0 Performed By: #### A 1C #### [facility] [address] [place] [address] Dr. Jani Haywood Glucose [Mass/Vol] 103 mg/dL Normal [facility] Comment on above: Performed By: #### A 1C #### [facility] [address] [address] [address] Jani Haywood HbA1c (Bld) [Mass fraction] 5.2 % Normal 4.5-6.2 [facility] Comment on above: Performed By: #### A 1C #### [facility] [address] [place] [address] Dr. Jani Haywood CRISTELA BOX TEST PT SEND OUTo n 07-02-2022 SENT TO REF LAB 07/02/2022 Normal [facility] Comment on above: Performed By: #### N BOX #### [facility] [address] [place] [address] Dr. Jani Haywood TYPE AND SCREENon 07-02-2022 TYPE AND SCREEN Negative Normal [facility] Comment on above: Performed By: #### A 1C #### [facility] [address] [place] [address] Dr. Jani Haywood US PREG TVon 06-18-2022 [...] by: RIMMA BATRES Date: 2022-06-18 16:09 Normal [facility] PAP ACOG PANEL 2: 30 to 65on 12-03-2021 . . Normal [facility] Comment on above: Result Comment: Perf ormed at: WB Performed By: #### [id number] #### [facility] [address] [place] [address] Dr. Jani Haywood Age Gdln ACOG Testing 30-65 [facility] Comment on above: Performed By: #### [id number] #### [facility] [address] [place] [address] Dr. Jani Haywood DIAGNOSIS: Comment Normal [facility] Comment on above: Result Comment: NEGA TIVE FOR INTRAEPITHELIAL LESION OR MALIGNANCY. Performed at: WB Performed By: #### [id number] #### [facility] [address] [place] [address] Dr. Jani Haywood HPV Aptima Negative Normal Negative [facility] Comment on above: Result Comment: This nucleic acid amplification test detects fourteen high-risk HPV types (16,18,31,33,35,39,45,51,52,56,58,59,66,68) without differentiation. Performed at: =G Performed By: #### [id number] #### [facility] [address] [address] [address] Jani Haywood Methodology: Comment Normal [facility] Comment on above: Result Comment: This liquid based ThinPrep(R) pap test was screened with the use of an image guided system. Performed at: WB Performed By: #### [id number] #### [facility] [address] [place] [address] Dr. Jani Haywood Note: Comment Normal [facility] Comment on above: Result Comment: The Pap smear is a screening test designed to aid in the detection of premalignant and malignant conditions of the uterine cervix. It is not a diagnostic procedure and should not be used as the sole means of detecting cervical cancer. Both false-positive and false-negative reports do occur. . Performed at: WB Performed By: #### [id number] #### [facility] [address] [address] [address] Jani Haywood Performed by: Comment Normal [facility] Comment on above: Result Comment: Nikki Schwab, Tube Former Operator (ASCP) Performed at: WB Performed By: #### [id number] #### [facility] [address] [address] [address] Jani Haywood Specimen adequacy: Comment Normal [facility] Comment on above: Result Comment: Sati sfactory for evaluation. Endocervical and/or squamous metaplastic cells (endocervical component) are present. Performed at: WB Performed By: #### [id number] #### [facility] [address] [address] [address] Jani Haywood Vital Signs Date Time Vital Sign Value Performing Clinician Facility 07-30-2023 09:32-0500 Body mass index (BMI) [Ratio] 25.88 kg/m2 [employer] Work Phone: [facility] 07-30-2023 09:32-0500 Body weight 66.28 kg [employer] Work Phone: [facility] 07-30-2023 09:32-0500 Diastolic blood pressure 60 mm[Hg] Ivan Pollo DO Work Phone: [facility] 07-30-2023 09:32-0500 Systolic blood pressure 100 mm[Hg] Ivan Pollo [employer] Work Phone: [facility] 07-23-2023 14:33-0500 Body mass index (BMI) [Ratio] 26.24 kg/m2 Terese REYES Work Phone: [facility] 07-23-2023 14:33-0500 Body weight 67.19 kg Terese REYES Work Phone: [facility] 07-23-2023 14:33-0500 Diastolic blood pressure 68 mm[Hg] Terese REYES Work Phone: [facility] 07-23-2023 14:33-0500 Systolic blood pressure 110 mm[Hg] Terese REYES Work Phone: [facility] 11-24-2021 14:10-0400 Body height 160.02 cm Meagn Oconnor Other [facility] Other 11-24-2021 14:10-0400 Body mass index (BMI) [Ratio] 20.55 kg/m2 Megan Oconnor Other [facility] Other 11-24-2021 14:10-0400 Body temperature 96.9 [degF] Meagn Oconnor Other [facility] Other 11-24-2021 14:10-0400 Body weight 52.62 kg Megan Oconnor Other [facility] Other 11-24-2021 14:10-0400 SaO2% (BldA) [Mass fraction] 97 % Megan Oconnor Other [facility] Other Encounters Encounter Date Encounter Type Care Provider Facility Start: 07-30-2023 End: 07-30-2023 ambulatory IVAN POLLO Not Available Start: 07-30-2023 End: 07-30-2023 flow sheet Ivan Pollo DO Work Phone: [facility] Comment on above: Third trimester preg luan; Small for gestational age (SGA) Start: 07-23-2023 End: 07-23-2023 ambulatory TERESE AGUILA Not Available Start: 07-23-2023 End: 07-23-2023 flow sheet Terese REYES Work Phone: [facility] Comment on above: Low blood pressure r eading; Dizziness; Feeling faint; Third trimester Start: 07-21-2023 End: 07-21-2023 ambulatory YULISSA JAIME Facility:[facility] Start: 07-15-2023 End: 07-15-2023 ambulatory TERESE AGUILA Not Available Start: 07-01-2023 End: 07-01-2023 ambulatory IVAN POLLO Not Available Start: 06-18-2023 End: 06-18-2023 ambulatory TERESE AGUILA Not Available Start: 05-20-2023 End: 05-20-2023 ambulatory IVAN POLLO Not Available Start: 10-10-2022 Telephone encounter Leo [facility] Comment on above: Design Leader - O ther Start: 10-09-2022 ambulatory Yulissa WOOD Work Phone: Audiology Start: 09-24-2022 End: 09-24-2022 ambulatory RIMMA STERLING Facility:[facility] Start: 09-24-2022 End: 09-24-2022 Patient encounter procedure Rimma Sterling PAAnuradha Work Phone: Otolaryngology Comment on above: Cochlear implant in place (Primary Dx); Sensorineural hearing loss, asymmetrical; Sensorineural hearing loss, bilateral Start: 07-29-2022 End: 07-30-[address] ARIEL RAJAN Facility:[facility] Start: 07-18-2022 End: 07-18-[address] ROSA CARTER Facility:[facility] Start: 07-17-2022 Encounter for preprocedural laboratory examination DR ROSA CARTER [facility] Start: 07-16-2022 End: 07-17-[address] ROSA CARTER Facility:[facility] Start: 07-16-2022 End: 07-17-2022 Encounter for preprocedural laboratory examination DR ROSA CARTER Facility:[facility] Start: 07-02-2022 End: 07-03-[address] ROSA CARTER Facility:[facility] Start: 06-18-2022 End: 06-19-[address] ROSA CARTER Facility:[facility] Start: 11-27-2021 End: 11-27-[address] ROSA CARTER Facility:[facility] Start: 11-24-2021 End: 11-24-2021 ambulatory Megan Oconnor Other [facility] Other Start: 11-24-2021 Office outpatient vi sit [...] (3 - PPSV23 if available, else PCV20) [facility] Start: 04-22-2028 Screening for malign ant neoplasm of cervix [facility] Start: 04-26-2024 End: 04-26-2024 Patient encounter procedure 04/26/2024 9:00 AM EST Office Visit [facility] [address] [place] [id number] Ivan Abad, DO [address] [place] [address] [facility] Start: 08-13-2023 End: 08-13-2023 Patient encounter procedure 08/13/2023 11:20 AM EST Routine [facility] [address] [place] [phone] Ivan Abad, DO [address] [place] [address] [facility] Start: 07-30-2023 End: 07-30-2024 US biophysical profile w non stress test US biophysical profile w non stress test Imaging Routine Small for gestational age (SGA) Expected: 07/30/2023 (Approximate), Expires: 07/30/2024 [facility] Work Phone: Comment on above: Expected: 07/30/2023 (Approximate), Expires: 07/30/2024 Start: 07-30-2023 End: 07-30-2023 Patient encounter procedure 07/30/2023 9:20 AM EST Routine [facility] [address] [facility] [place] [phone] Ivan Abad, DO [address] [facility] [address] [address] [place], [place] [id number] [facility] Start: 07-23-2023 End: 07-23-2023 Professional / ancillary services management 07/23/2023 3:00 PM EST Ancillary Procedure [facility] [address] [place] [phone] [facility] Start: 02-20-2023 Influenza vaccination [facility] Start: 06-22-2022 DEPRESSION ASSESSMENT DEPRESSION ASS ESSMENT [facility] Start: 10-20-2021 COVID-19 VACCINE (3 - Booster for Pfizer series) COVID-19 VACCINE (3 - Booster for Pfizer series) [facility] Start: 2019 Mammography MAMMOGRAM [facility] Start: 2019 Screening for malign ant neoplasm of breast Mammogram [facility] Start: 11-17-2009 HPV TESTING HPV TESTING [facility] Start: 11-17-2000 PAP TESTING PAP TESTING [facility] Start: 11-17-1998 Urine microalbumin profile DTAP,TDAP,TD (1 - Tdap) [facility] Start: 11-17-1997 HEPATITIS C SCREENING HEPATITIS C SC JOSE [facility] Start: 11-17-1997 HIV SCREENING HIV SCREENING [facility] Start: 1980 HEPATITIS B (1 of 3 - 3-dose series) HEPATITIS B (1 of 3 - 3-dose series) [facility] Immunizations Immunization Date Immunization Notes Care Provider Fa cility 03-22-2020 influenza virus vacc ine, unspecified formulation Terese REYES Work Phone: [facility] 08-13-2017 pneumococcal polysaccharide vaccine, 23 valent Rimma Sterling PA-C Work Phone: [facility] 08-10-2014 pneumococcal conjuga te vaccine, 13 valent Rimma Sterling PA-C Work Phone: [facility] Payers Date Payer Category Payer Unknown [id number] 2022 Unknown [id number] 1980 Unknown [id number] 2.16.84 [id number] 1980 Unknown [id number] 2.16.84 [id number] 1979 Unknown [id number] 2.16.84 [id number] 1979 Unknown [id number] 2.16.84 [id number] 1979 Unknown [id number] 2.16.84 [id number] 1979 Unknown [id number] 2.16.84 0.1.446410.3.579.2.593 1979 Unknown [id number] 2.16.84 [id number] 1979 Unknown [id number] 2.16.84 [id number] 1979 Unknown [id number] 2.16.84 [id number] 1979 Unknown [id number] 2.16.84 [id number] 1979 Unknown [id number] 2.16.84 [id number] 1979 Unknown [id number] 2.16.840 .[id number] 1979 Unknown [id number] 2.16.840 .[id number] 1960 [facility] [id number] Unknown [id number] 2.16.84 [id number] Social History Date Type Detail Facility Start: 03-16-2023 Sex Assigned At [facility] Start: 09-24-2022 End: 03-16-2023 Tobacco smoking status NHIS Never smoked tobacco [facility] Start: 09-24-2022 End: 03-16-2023 Tobacco use and exposure Smokeless tobacco non-user [facility] Start: 09-24-2022 Alcohol intake Current non-drinker of alcohol (finding) [facility] Start: 1980 Sex Assigned At Female [facility] Start: 07-23-2023 End: 07-30-2023 Alcohol intake Ex-drinker (finding) [facility] Start: 03-16-2023 History of Social function [facility] Start: 04-22-2023 Alcohol Comment occasional alcohol use, Caffeine intake: none [facility] Start: 12-25-2022 [facility] Start: 01-21-2023 Gender identity Identifies as female gender (finding) [facility] Start: 01-21-2023 Sexual orientation Heterosexual (finding) [facility] Medical Equipment Procedure Code Equipment Code Equipment Original Text Equipment Identifier Dates Hia-Gb-J-Kind Implant - [id number] Start: 09-02-2017 Comment on above: Description: [...] DO documented in this encounter [facility] 07-23-2023 History of Presen t illness [...] [place] documented in this encounter [facility] 07-21-2023 Note HNO ID: [id number] Author: YULISSA JAIME AUD Service: ? Author Type: Foam Machine Operator Type: Progress Notes Filed: 07/21/2023 08:47 Note Text: [facility] Section of Allied Hearing, Speech and Balance Services COCHLEAR IMPLANT ADULT PROGRAMMING Name: Amy ALFARO [facility]#: [id number] Date of Service: July 21, 2023 Date of : 1980 Age: [age] year old COCHLEAR IMPLANT INFORMATION (see below for all device details) Updated: July 21, 2023 Right ear: Phonak Audeo [employer]ITE Hearing Aid that was fit at an outside facility (November 2021) and is being managed by that facility. Left ear: External Processor: Cochlear [employer] [id number] (Nucleus 8; upgraded around January 2023) Processor SN: [id number] Processor ([id number]) SN: [id number] Magnet strength: 2 Internal Device: Cochlear [id number] Profile with Slim Modiolar Electrode Array Internal Device SN: [id number] Inactive electrodes: None Surgery Date: 09/02/2017 Initial [...] 6; Sensitivity: 12) before programming. See the [employer] Audiogram for obtained thresholds. Speech perception testing was completed at 60 recreational counselor using recorded stimuli in the sound field at 0 degrees azimuth. NOTE: The contralateral ear was not plugged and muffed during testing. The following testing and results were obtained: Gpdcckmyc-Cjtjobb-Wcioxhetj Words (CNC) Test Condition List # Phonemes [...] * Revie (more content not included)... [facility] 10-10-2022 Miscellaneous Notes Software Qa System Specialist: Katerina Mina Patient: Hasmukh Alfaro 1980 Clinic: [facility] Foam Machine Operator: Dr. Yulissa Jaime Appointment Length: 45 Minutes What are you looking to accomplish?: I d like to learn more about the Nucleus 8 and the process of upgrading Recipient's Stated Reason for Upgrading Clinic Request - Foam Machine Operator recommended it [employer] - Processor [...] steps are Acquisition Methods Recipient will receive Xht-ve-Kwclvc cost estimate once order placed Next Steps If recipient decides to move forward with pursuing a Nucleus 8 upgrade and provides us with the necessary order information, we will start an order on their behalf. You will hear from Cochlear s Perioperative Assistant team, via email/DocuSign to gain your approval or regarding an LMN to allow this patient to move forward in the process. Following completion of the upgrade process, I will invite the recipient to schedule time for a complimentary onboarding with our [employer] team so they can begin to maximize the use of their new Cochlear equipment. documented in this encounter [facility] 10-09-2022 Note HNO ID: [id number] Author: ISRAEL Champion Service: ? Author Type: Foam Machine Operator Type: Progress Notes Filed: 10/09/2022 12:58 [...] any questions. Upgrade Consultation Clinic Patient Report Software Qa System Specialist: Katerina Mina Patient: Hasmukh Alfaro 1980 Clinic: [facility] Foam Machine Operator: Dr. Yulissa Jaime Appointment Length: 45 Minutes What are you looking to accomplish?: I?d like to learn more about the Nucleus 8 and the process of upgrading Recipient's Stated Reason for Upgrading ? Clinic Request - Foam Machine Operator recommended it ? [employer] - [...] are Acquisition Methods ? Recipient will receive Xlv-yg-Mxarnp cost estimate once order placed Next Steps ? If recipient decides to move forward with pursuing a Nucleus 8 upgrade and provides us with the necessary order information, we will start an order on their behalf. You will hear from Cochlear?s Perioperative Assistant team, via email/DocuSign to gain your approval or regarding an LMN to allow this patient to move forward in the process. Following completion of the upgrade process, I will invite the recipient to schedule time for a complimentary onboarding with our [employer] team so they can begin to maximize the use of their new Cochlear equipment. Warm Regards, Eloisa Vazquez, [facility]/A Clinical Foam Machine Operator [facility] 10-09-2022 History of Presen t illness [...] any questions. Upgrade Consultation Clinic Patient Report Software Qa System Specialist: Katerina Mina Patient: Hasmukh Alfaro 1980 Clinic: [facility] Foam Machine Operator: Dr. Yulissa Jaime Appointment Length: 45 Minutes What are you looking to accomplish?: I d like to learn more about the Nucleus 8 and the process of upgrading Recipient's Stated Reason for Upgrading Clinic Request - Foam Machine Operator recommended it [employer] - Processor [...] steps are Acquisition Methods Recipient will receive Bhd-yj-Usmjkr cost estimate once order placed Next Steps If recipient decides to move forward with pursuing a Nucleus 8 upgrade and provides us with the necessary order information, we will start an order on their behalf. You will hear from Cochlear s Perioperative Assistant team, via email/DocuSign to gain your approval or regarding an LMN to allow this patient to move forward in the process. Following completion of the upgrade process, I will invite the recipient to schedule time for a complimentary onboarding with our [employer] team so they can begin to maximize the use of their new Cochlear equipment. Warm Regards, Eloisa Vazquez, [facility]/A Clinical Foam Machine Operator documented in this encounter [facility] 09-24-2022 Note HNO ID: [id number] Author: Rimma Sterling PA-C Service: ? Author Type: Physician Palliative Care Nurse Practitioner Type: Progress Notes Filed: 09/24/2022 9:53 AM Note Text: History of Present Illness Ms. AMY ALFARO is a 41 year old year old female presenting for: referred by SELF And is a patient of DO Abel Card DO [address] [place] [address] Communication will be via the electronic record [...] (FLONASE) 50 mcg/actuation nasal spray Use 1 [place] in each nostril as needed. multivitamin (DAILY [...] Decision Making Level: 2 - Straightforward [facility] 09-24-2022 Instructions Rimma Sterling PA-C - 09/24/2022 9:[address] Audra Umanzor use his name on paperwork documented in this encounter [facility] 09-24-2022 History of Presen t illness Narrative History of Present Illness Ms. AMY ALFARO is a 41 year old year old female presenting for: referred by SELF And is a patient of DO Abel Card DO [facility] [place] [address] Communication will be via the electronic record [...] (FLONASE) 50 mcg/actuation nasal spray Use 1 [place] in each nostril as needed. multivitamin (DAILY [...] 2 - Straightforward documented in this encounter [facility] 07-18-2022 Note EXAMINATION: US PELV IS HISTORY: Surgical procedure COMPARISON: Ultrasound less than 14 weeks 07/16/2022 TECHNIQUE: Transabdominal and transvaginal sonographic examination. FINDINGS: Final images show an empty endometrial cavity. IMPRESSION: 1. No appreciable products of conception within endometrial cavity following dilation and curettage. Electronically authenticated by: ALEXI BRANCH Date: 2022-07-18 08:21 [facility] 11-24-2021 Evaluation note Encounter Date Diagnosis [...] Fungal rash of trunk (ICD-10 - B36.9) [facility] Other Evaluation note* Diagnosis Cochlear implant in place- Primary Other postprocedural status Sensorineural hearing loss, asymmetrical Sensorineural hearing loss, bilateral [facility] Diagnosis Low blood pressure reading [...] Surgical History cochlear implant Surgical History D&C [facility] Other Summary Purpose Family History No Family History Records FoundNo Family History Records FoundNo Family History Records Found Advance Directives No Advanced Directives Records FoundNo Advanced Directives Records FoundNo Advanced Directives Records Found Additional Source Comments REASON FOR VISIT (unrecogniz ed section and content) Reason Comments Hearing Loss New. Self referral. CI LT side. Last audio 03/18/22. Denies otalgia and otorrhea. Reason Comments Design Leader - Other Reason Comments Dizziness Hypotension Reason Comments Routine Visit INFORMATION SOURCE (unrecogn ized section and content) DATE CREATED AUTHOR 07/30/2022 [facility] DATE CREATED AUTHOR AUTHOR'S ORGANIZ ATION 07/22/2023 [facility] DATE CREATED AUTHOR AUTHOR'S ORGANIZ ATION 07/31/2023 [facility] EPIC Source Comments (unrecognize d section and content) In the event this informatio n is protected by the Federal Confidentiality of Alcohol and Drug Abuse Patient Records regulations: The Federal rules restrict any use of the information to criminally investigate or prosecute any alcohol or drug abuse patient.[facility] the event this information is protected by the Federal Confidentiality of Alcohol and Drug Abuse Patient Records regulations: The Federal rules restrict any use of the information to criminally investigate or prosecute any alcohol or drug abuse patient.[facility] the event this information is protected by the Federal Confidentiality of Alcohol and Drug Abuse Patient Records regulations: The Federal rules restrict any use of the information to criminally investigate or prosecute any alcohol or drug abuse patient.[facility] Care Teams (unrecognized sec tion and content) Chemical Plant Manager Relationship Specialty Start Date End Date Abel Sun PCP - General Family Medicine 03/15/14 Chemical Plant Manager Relationship Specialty Start Date End Date Abel Sun PCP - General Family Medicine 03/15/14 Chemical Plant Manager Relationship Specialty Start Date End Date Abel Sun PCP - General Family Medicine 03/15/14 Chemical Plant Manager Relationship Specialty Start Date End Date Ariel Rajan MD [address] [place] [address] PCP - General 02/16/23 Chemical Plant Manager Relationship Specialty Start Date End Date Ariel Rajan MD [address] [place] [address] PCP - General 02/16/23 FOR RECORDS PERTAINING [...] BE BASED ON THE PRIMARY CLINICAL RECORDS. [facility]. provides no warranty or guarantee of the accuracy or completeness of information in this document.
--- OUTSIDE RECORDS SUMMARY | 2023-08-21 07:33 | XMS_ITS | CCD ---
Author Name Unknown Address [address] [place] [address] Organization [facility] Care Team Providers Care Director Of Maternity Services Name Role Phone Megan Oconnor Unavailable ANDRES, [...] Unavailab Ariel Rich MD Primary Care Provider [phone] TERESE AGUILA Attending Unavailable IVAN ABAD Attending Unavailable TERESE AGUILA Attending Unavailable TERESE AGUILA Attending Unavailable IVAN ABAD Attending Unavailable IVAN ABAD Attending Unavailable Allergies Allergy Classification Reported Allergen(s) Allergy Type Date of Onset Reaction(s) Facility (4 sources) Seasonal allergy; Translations: [SEASONAL ALLERGIES] Allergy to substance 4 Cough [facility] (4 sources) Octacosanol Drug Allergy 4 Cough [facility] (4 sources) Other Propensity to adverse reactions 3 Unknown [facility] Medications Current Medications Medication Drug Class(es) Dates Sig (Normalized) Sig (Original) [id number] 200 actuat albuterol 0.09 mg/actuat metered dose [...] on above: Take 1 capsule by mo [facility] as needed. fluticasone propionate 0.05 mg/actuat metered dose nasal spray (3 sources) Corticosteroid fluticasone (FLONASE) 50 mcg/actuation nasal spray Indications: Bilateral sensorineural hearing loss , Autoimmune disorder of inner ear Use 1 [place] in each nostril as needed. 0 Active Comment on above: Use 1 [place] in each nostril as needed. LOW-DOSE ASPIRIN PO (2 sources) Start: 04-02-2023 End: 07-23-2023 LOW-DOSE ASPIRIN PO multivitamin (DAILY MULTIPLE) tablet (3 sources) take 1 tablet by mouth once daily multivitamin (DAILY MULTIPLE) tablet Take 1 tablet by mouth once daily. 0 Active Comment on above: Take 1 tablet by [facility] once daily. predniSONE 10 mg oral [...] low weight; and growth retardation (2 sources) Gmqbr-[id number] baby; Translations: [[place] small for gestational age, unspecified weight] 07-30-2023 [...] UA Negative Negative - 4(70) +++ mg/dL [facility] Blood, UA Positive Negative - 50 Bobby/mcL [facility] Comment on above: trace-intact Clarity, UA Clear [facility] re Color, UA Yellow [facility] e Glucose, UA Negative Negative - 1999(110) ++++ mg/dL [facility] Interpretation and review of laboratory results Abnormal [facility] Ketones, UA Negative Negative - 160(16) ++++ mg/dL [facility] Leukocytes, UA Positive Negative - 500+++ Suzette/mcL [facility] Comment on above: small Nitrite, UA Negative Negative - Positive [facility] pH, [facility] 6.0 5 - [facility] Protein, UA Negative Negative - 1999(20) ++++ mg/dL [facility] Spec Grav, UA 1.010 1 - 1.03 [facility] Urobilinogen, UA 0.2 0.2 - 12 mg/dL [facility] Urinalysis macro (dipstick) panel (U)on 07-23-2023 Bilirubin, UA Negative Negative - 4(70) +++ mg/dL [facility] Blood, UA Negative Negative - 50 Bobby/mcL [facility] Clarity, UA Clear [facility] re Color, UA Yellow [facility] Glucose, UA Negative Negative - 1999(110) ++++ mg/dL [facility] Interpretation and review of laboratory results Abnormal [facility] Ketones, UA Negative Negative - 160(16) ++++ mg/dL [facility] Leukocytes, UA Positive Negative - 500+++ Suzette/mcL [facility] Comment on above: small Nitrite, UA Negative Negative - Positive [facility] pH, UA 7.0 5 - 9 [facility] Protein, UA Negative Negative - 1999(20) ++++ mg/dL [facility] Spec Grav, UA 1.015 1 - 1.03 [facility] Urobilinogen, UA 0.2 0.2 - 12 mg/dL [facility]-21-2023 CNOV Office Visit (MALISSAUCR ) AMY ALFARO ([id number]) 1980 F Date Time Provider Department 07/21/23 7:30 AM YULISSA JAIME During your visit today, we recorded the following information about you: Yulissa Jaime AUD 07/21/2023 8:47 AM Signed [facility] [place] [facility] COCHLEAR IMPLANT ADULT PROGRAMMING Name: Amy ALFARO CC#: [id number] Date of Service: July 21, 2023 Date of : 1980 Age: [age] year old COCHLEAR IMPLANT INFORMATION (see below for all device details) Updated: July 21, 2023 Right ear: Phonak Audeo RITE Hearing Aid that was fit at an outside facility (November 2021) and is being managed by that facility. Left ear: External Processor: Cochlear [employer]ables [id number] (Nucleus 8; upgraded around January 2023) Processor SN: [id number] Processor ([id number]) SN: [id number] Magnet strength: 2 Internal Device: Cochlear [id number] Profile with Slim Modiolar Electrode Array Internal Device SN: [id number] Inactive electrodes: None Surgery Date: 09/02/2017 Initial [...] 6; Sensitivity: 12) before programming. See the Kiip Audiogram for obtained thresholds. Speech perception testing was completed at 60 glass products inspector using recorded stimuli in the sound field at 0 degrees azimuth. NOTE: The contralateral ear was not plugged and muffed during testing. The following testing and results were obtained: Fpyrsdsxz-[id number] sonant Words (CNC) Test Condition List # [...] etc. Shoul (more content not included)... Normal [facility] Ada 10-10-2022 JEANN Telephone (HNQ) DOMINICAMY Shravan ([id number]) 1980 F Date Time Provider Department 10/10/22 LEO ATKINSON During your visit today, we recorded the following information about you: Leo Huitrononnell 10/10/2022 3:52 PM Signed Medical Center Manager: Katerina Mina Patient: Hasmukh Alfaro 1980 Clinic: [facility] Certified Professional Ergonomist: Dr. Yulissa Jaime Appointment Length: 45 Minutes What are you looking to accomplish?: I?d like to learn more about the Nucleus 8 and the process of upgrading Recipient's Stated Reason for Upgrading ? Clinic Request - Certified Professional Ergonomist recommended it ? Useful Life - Processor [...] are Acquisition Methods ? Recipient will receive P[place]-Xxglih cost estimate once order placed Next Steps ? If recipient decides to move forward with pursuing a Nucleus 8 upgrade and provides us with the necessary order information, we will start an order on their behalf. 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 - fluticasone (FLONASE) 50 mcg/actuation nasal spray Use 1 [place] in each nostril as needed. - multivitamin [...] Encounter Status:Closed by LEO ATKINSON on 10/10/22 [facility] Emily 09-24-2022 CNOV Office Visit (OTOLCR ) AMY ALFARO ([id number]) 1980 F Date Time Provider Department 09/24/22 9:30 AM RIMMA STERLING OTVIDAL During your visit today, we recorded the following information about you: Rimma Sterling PA-C 09/24/2022 9:53 AM Signed History of Present Illness Ms. AMY ALFARO is a 41 year old year old female presenting for: referred by SELF And is a patient of DO Abel Card DO [address] [place] [address] Communication will be via the electronic record [...] (FLONASE) 50 mcg/actuation nasal spray Use 1 [place] in each nostril as needed. multivitamin (DAILY [...] ALLERGIES 1 (more content not included)... Normal [facility] CBC AUTO DIFFon 07-29-2022 BASO # 0.0 103/ul Normal 0.0-0.1 [facility] Comment on above: Performed By: #### C BC #### [facility] [address] [place] [address] Dr. Jani Haywood Basophils/100 WBC (Bld) 0.6 % Normal 0.2-2.0 [facility] Comment on above: Performed By: #### C BC #### [facility] [address] [place] [address] Dr. Jani Haywood EO # 0.1 103/ul Normal 0.0-0.7 [facility] Comment on above: Performed By: #### C BC #### [facility] [address] [place] [address] Dr. Jani Haywood Eosinophils/100 WBC (Bld) 2.5 % Normal 0.9-7.0 [facility] Comment on above: Performed By: #### C BC #### [facility] [address] [place] [address] Dr. Jani Haywood Erythrocyte distribution width (RBC) [Ratio] 13.7 % Normal 11.0-15.0 [facility] Comment on above: Performed By: #### C BC #### [facility] [address] [place] [address] Dr. Jani Haywood Hematocrit (Bld) [Volume fraction] 40.3 % Normal 36.0-48.0 [facility] Comment on above: Performed By: #### C BC #### [facility] [address] [place] [address] Dr. Jani Haywood Hemoglobin (Bld) [Mass/Vol] 12.7 g/dL Normal 12.0-16.0 [facility] Comment on above: Performed By: #### C BC #### [facility] [address] [place] [address] Dr. Jani Haywood IG # 0.01 10e3/ul Normal 0.00-0.03 [facility] Comment on above: Performed By: #### C BC #### [facility] [address] [place] [address] Dr. Jani Haywood IG % 0.2 % Normal 0.0-0.5 [facility] Comment on above: Performed By: #### C BC #### [facility] [address] [place] [address] Dr. Jani Haywood LYMPH # 1.8 103/ul Normal 1.2-3.8 [facility] Comment on above: Performed By: #### C BC #### [facility] [address] [place] [address] Dr. Jani Haywood Lymphocytes/100 WBC (Bld) 35.2 % Normal 20.5-60.0 [facility] Comment on above: Performed By: #### C BC #### [facility] [address] [place] [address] Dr. Jani Haywood MANUAL DIFF REQ NO Normal [facility] Comment on above: Performed By: #### C BC #### [facility] [address] [place] [address] Dr. Jani Haywood MCH (RBC) [Entitic mass] 30.5 pg Normal 26.7-34.0 [facility] Comment on above: Performed By: #### C BC #### [facility] [address] [place] [address] Dr. Jani Haywood MCHC (RBC) [Mass/Vol] 31.5 g/dL Normal 29.9-35.2 [facility] Comment on above: Performed By: #### C BC #### [facility] [address] [place] [address] Dr. Jani Haywood MCV (RBC) [Entitic vol] 96.9 fL Normal 81.0-99.0 [facility] Comment on above: Performed By: #### C BC #### [facility] [address] [place] [address] Dr. Jani Haywood MONO # 0.4 103/ul Normal 0.3-0.8 [facility] Comment on above: Performed By: #### C BC #### [facility] [address] [place] [address] Dr. Jani Haywood Monocytes/100 WBC (Bld) 8.1 % Normal 1.7-12.0 [facility] Comment on above: Performed By: #### C BC #### [facility] [address] [place] [address] Dr. Jani Haywood NEUT # 2.8 103/ul Normal 1.4-6.5 [facility] Comment on above: Performed By: #### C BC #### [facility] [address] [address] [address] Jani Haywood Neutrophils/100 WBC (Bld) 53.4 % Normal 43.0-75.0 [facility] Comment on above: Performed By: #### C BC #### [facility] [address] [address] [address] Jani Haywood Platelet mean volume (Bld) [Entitic vol] 10.0 fL Normal 9.5-13.5 [facility] Comment on above: Performed By: #### C BC #### [facility] [address] [address] [address] Jani Haywood PLT 271 103/ul Normal 150-450 [facility] Comment on above: Performed By: #### C BC #### [facility] [address] [place] [address] Dr. Jani Haywood RBC 4.16 106/ul Critically low 4.20-5.40 [facility] Comment on above: Performed By: #### C BC #### [facility] [address] [place] [address] Dr. Jani Hawyood WBC 5.2 103/ul Normal 4.0-11.0 [facility] Comment on above: Performed By: #### C BC #### [facility] [address] [place] [address] Dr. Jani Haywood IRONon 07-29-2022 Iron [Mass/Vol] 64.0 ug/dL Normal 50.0-170.0 [facility] Comment on above: Performed By: #### A 1C #### [facility] [address] [place] [address] Dr. Jani Haywood PROF 14(COMP METB)on 023 Albumin [Mass/Vol] 3.5 g/dL Normal 3.4-5.0 [facility] Comment on above: Performed By: #### C MP #### [facility] [address] [place] [address] Dr. Jani Haywood Albumin/Globulin [Mass ratio] 0.9 {ratio} Normal [facility] Comment on above: Performed By: #### C MP #### [facility] [address] [address] [address] Jani Haywood ALP [Catalytic activity/Vol] 73 U/L Normal 46-116 [facility] Comment on above: Performed By: #### C MP #### [facility] [address] [address] [address] Jani Haywood ALT [Catalytic activity/Vol] 12 U/L Critically low 14-59 [facility] Comment on above: Performed By: #### C MP #### [facility] [address] [address] [address] Jani Haywood Anion gap [Moles/Vol] 11.0 mmol/L Normal [facility] Comment on above: Performed By: #### C MP #### [facility] [address] [place] [address] Dr. Jani Haywood AST [Catalytic activity/Vol] 13 U/L Critically low 15-37 [facility] Comment on above: Performed By: #### C MP #### [facility] [address] [address] [address] Jani Haywood Bilirubin [Mass/Vol] 0.5 mg/dL Normal 0.2-1.0 [facility] Comment on above: Performed By: #### C MP #### [facility] [address] [place] [address] Dr. Jani Haywood Calcium [Mass/Vol] 8.6 mg/dL Normal 8.5-10.1 [facility] Comment on above: Performed By: #### C MP #### [facility] [address] [address] [address] Jani Haywood Chloride [Moles/Vol] 105 mmol/L Normal 98-107 [facility] Comment on above: Performed By: #### C MP #### [facility] [address] [address] [address] Jani Haywood CO2 [Moles/Vol] 28.8 mmol/L Normal 21.0-32.[address] [facility] Comment on above: Performed By: #### C MP #### [facility] [address] [address] [address] Jani Haywood Creatinine [Mass/Vol] 0.87 mg/dL Normal 0.55-1.02 [facility] Comment on above: Performed By: #### C MP #### [facility] [address] [address] [address] Jani Haywood EGFR-AF CYMRAES >60 Normal >=[address] [facility] Comment on above: Performed By: #### C MP #### [facility] [address] [address] [address] Jani Haywood EGFR-NON AF CYMRAES >60 Normal >=60 [facility] Comment on above: Performed By: #### C MP #### [facility] [address] [place] [address] Dr. Jani Haywood Globulin (S) [Mass/Vol] 3.7 g/dL Normal [facility] Comment on above: Performed By: #### C MP #### [facility] [address] [place] [address] Dr. Jani Haywood Glucose [Mass/Vol] 95 mg/dL Normal 74-106 [facility] Comment on above: Performed By: #### C MP #### [facility] [address] [address] [address] Jani Haywood Potassium [Moles/Vol] 3.8 mmol/L Normal 3.5-5.1 [facility] Comment on above: Performed By: #### C MP #### [facility] [address] [address] [address] Jani Haywood Protein [Mass/Vol] 7.2 g/dL Normal 6.4-8.2 [facility] Comment on above: Performed By: #### C MP #### [facility] [address] [place] [address] Dr. Jani Haywood Sodium [Moles/Vol] 141 mmol/L Normal 136-145 [facility] Comment on above: Performed By: #### C MP #### [facility] [address] [place] [address] Dr. Jani Haywood Urea nitrogen [Mass/Vol] 12.0 mg/dL Normal 7.0-18.0 [facility] Comment on above: Performed By: #### C MP #### [facility] [address] [place], [place] [address] Dr. Jani Haywood Urea nitrogen/Creatinine [Mass ratio] 13.8 mg/mg Normal [facility] Comment on above: Performed By: #### C MP #### [facility] [address] [place], [place] [address] Dr. Jani Haywood Covid-19 PCR ([facility])on 06-23 SARS-CoV-2 (COVID-19) RNA CAROLE+probe Ql (Unsp spec) Not detected Normal NOT DETECTED [facility] Comment on above: Result Comment: This test is not yet approved or cleared by the [place] FDA. When there are no FDA-approved or cleared tests available, and other criteria are met, FDA can make tests available under an emergency access mechanism called an Emergency Use Authorization (EUA). The EUA for this test is supported by the Waxed Bag Machine Operator of Health and Human Service's (HHS's) [...] SARS-CoV-2. Performed By: #### C VDTB #### [facility] [address] [place], [place] [address] Dr. Jani Haywood US PREG <14 WKSon [...] was notified of these findings by the access spec at time of imaging. Electronically authenticated by: ALEXI BRANCH Date: 2022-07-16 13:36 Normal [facility] HEP B SURFACE ANTIGEN SCREEN on 07-03-2022 HBsAg Screen Negative Normal Negative [facility] Comment on above: Performed By: #### A 1C #### [facility] [address] [place] [address] Dr. Jani Haywood HEPATITIS C VIRUS AB W/ REFL EX QUANTon 07-03-2022 HCV AB <0.1 Normal 0.0-0.9 [facility] Comment on above: Performed By: #### H CVPCRR #### [facility] [address] [place] [address] Dr. Jani Haywood Interpretation: Comment Normal [facility] Comment on above: Result Comment: Nega tive Not infected with HCV, unless recent infection is suspected or other evidence exists to indicate HCV infection. Performed By: #### H CVPCRR #### [facility] [address] [place] [address] Dr. Jani Haywood HIV 1 AND 2 WITH REFLEXon HIV Screen 4th Generation wRfx Non-Reactive Normal Non Reactive [facility] Comment on above: Result Comment: HIV Negative HIV-1/HIV-2 antibodies and HIV-1 p24 antigen were NOT detected. There is no laboratory evidence of HIV infection. Performed By: #### H IV12 #### [facility] [address] [place] [address] Dr. Jani Haywood RPR QUANTon 07-03-2022 Rapid Plasma Reagin, Quant Non-Reactive Normal NonRea<1:1 [facility] Comment on above: Result Comment: Plea se Note: This test does not meet current guidelines for screening and diagnosis of syphilis. This test is intended for following treatment response in patients being treated for syphilis infection. To screen for syphilis infection, a reflex cascade that includes both RPR and a treponema-specific assay should be utilized, such as Treponema pallidum (Syphilis) Screening Maceo (463292) or Rapid Plasma Reagin (RPR) Test With Reflex to Quantitative RPR and Confirmatory Treponema pallidum Antibodies (365787). Performed By: #### R PRQ #### [facility] [address] [place] [address] Dr. Jani Haywood RUBELLA AB IGGon 07-03-2022 Rubella Antibodies, IgG 2.92 index Normal Immune >0.99 [facility] Comment on above: Result Comment: Non- immune <0.90 Equivocal 0.90 - 0.99 Immune >0.99 Performed By: #### A 1C #### [facility] [address] [place] [address] Dr. Jani Haywood CBC AUTO DIFFon 07-02-2022 BASO # 0.1 103/ul Normal 0.0-0.1 [facility] Comment on above: Performed By: #### C BC #### [facility] [address] [place] [address] Dr. Jani Haywood Basophils/100 WBC (Bld) 0.7 % Normal 0.2-2.0 [facility] Comment on above: Performed By: #### C BC #### [facility] [address] [place] [address] Dr. Jani Haywood EO # 0.1 103/ul Normal 0.0-0.7 [facility] Comment on above: Performed By: #### C BC #### [facility] [address] [place] [address] Dr. Jani Haywood Eosinophils/100 WBC (Bld) 1.2 % Normal 0.9-7.0 [facility] Comment on above: Performed By: #### C BC #### [facility] [address] [place] [address] Dr. Jani Haywood Erythrocyte distribution width (RBC) [Ratio] 13.7 % Normal 11.0-15.0 [facility] Comment on above: Performed By: #### C BC #### [facility] [address] [place] [address] Dr. Jani Haywood Hematocrit (Bld) [Volume fraction] 37.9 % Normal 36.0-48.0 [facility] Comment on above: Performed By: #### C BC #### [facility] [address] [place] [address] Dr. Jani Haywood Hemoglobin (Bld) [Mass/Vol] 12.6 g/dL Normal 12.0-16.0 [facility] Comment on above: Performed By: #### C BC #### [facility] [address] [place] [address] Dr. Jani Haywood IG # 0.02 10e3/ul Normal 0.00-0.03 [facility] Comment on above: Performed By: #### C BC #### [facility] [address] [place] [address] Dr. Jani Haywood IG % 0.3 % Normal 0.0-0.5 [facility] Comment on above: Performed By: #### C BC #### [facility] [address] [place] [address] Dr. Jani Haywood LYMPH # 1.6 103/ul Normal 1.2-3.8 [facility] Comment on above: Performed By: #### C BC #### [facility] [address] [place] [address] Dr. Jani Haywood Lymphocytes/100 WBC (Bld) 21.5 % Normal 20.5-60.0 [facility] Comment on above: Performed By: #### C BC #### [facility] [address] [place] [address] Dr. Jani Haywood MANUAL DIFF REQ NO Normal [facility] Comment on above: Performed By: #### C BC #### [facility] [address] [place] [address] Dr. Jani Haywood MCH (RBC) [Entitic mass] 30.4 pg Normal 26.7-34.0 [facility] Comment on above: Performed By: #### C BC #### [facility] [address] [place] [address] Dr. Jani Haywood MCHC (RBC) [Mass/Vol] 33.2 g/dL Normal 29.9-35.2 [facility] Comment on above: Performed By: #### C BC #### [facility] [address] [place] [address] Dr. Jani Haywood MCV (RBC) [Entitic vol] 91.3 fL Normal 81.0-99.0 [facility] Comment on above: Performed By: #### C BC #### [facility] [address] [place] [address] Dr. Jani Haywood MONO # 0.5 103/ul Normal 0.3-0.8 [facility] Comment on above: Performed By: #### C BC #### [facility] [address] [place] [address] Dr. Jani Haywood Monocytes/100 WBC (Bld) 6.6 % Normal 1.7-12.0 [facility] Comment on above: Performed By: #### C BC #### [facility] [address] [place] [address] Dr. Jani Haywood NEUT # 5.1 103/ul Normal 1.4-6.5 [facility] Comment on above: Performed By: #### C BC #### [facility] [address] [place] [address] Dr. Jani Haywood Neutrophils/100 WBC (Bld) 69.7 % Normal 43.0-75.0 [facility] Comment on above: Performed By: #### C BC #### [facility] [address] [place] [address] Dr. Jani Haywood Platelet mean volume (Bld) [Entitic vol] 10.2 fL Normal 9.5-13.5 [facility] Comment on above: Performed By: #### C BC #### [facility] [address] [place] [address] Dr. Jani Haywood PLT 281 103/ul Normal 150-450 [facility] Comment on above: Performed By: #### C BC #### [facility] [address] [place] [address] Dr. Jani Haywood RBC 4.15 106/ul Critically low 4.20-5.40 [facility] Comment on above: Performed By: #### C BC #### [facility] [address] [address] [address] Jani Haywood WBC 7.3 103/ul Normal 4.0-11.0 [facility] Comment on above: Performed By: #### C BC #### [facility] [address] [address] [address] Jani Haywood GLYCOHEMOGLOBIN A1Con 2022 ADA RECOMMENDATION SEE BELOW Normal [facility] Comment on above: Result Comment: ADA RECOMMENDED LIMIT 4.0 - 6.0 ADA THERAPEUTIC TARGET < 7.0 ACTION SUGGESTED > 7.0 Performed By: #### A 1C #### [facility] [address] [place] [address] Dr. Jani Haywood Glucose [Mass/Vol] 103 mg/dL Normal [facility] Comment on above: Performed By: #### A 1C #### [facility] [address] [address] [address] Jani Haywood HbA1c (Bld) [Mass fraction] 5.2 % Normal 4.5-6.2 [facility] Comment on above: Performed By: #### A 1C #### [facility] [address] [place] [address] Dr. Jani Haywood CRISTELA BOX TEST PT SEND OUTo n 07-02-2022 SENT TO REF LAB 07/02/2022 Normal [facility] Comment on above: Performed By: #### N BOX #### [facility] [address] [place] [address] Dr. Jani Haywood TYPE AND SCREENon 07-02-2022 TYPE AND SCREEN Negative Normal [facility] Comment on above: Performed By: #### A 1C #### [facility] [address] [place] [address] Dr. Jani Haywood US PREG TVon 06-18-2022 [...] RIMMA BATRES Date: 2022-06-18 16:09 Normal [facility] PAP ACOG PANEL 2: 30 to 65on 12-03-2021 . . Normal [facility] Comment on above: Result Comment: Perf ormed at: WB Performed By: #### [id number] #### [facility] [address] [place] [address] Dr. Jani Haywood Age Gdln ACOG Testing 30-65 [facility] Comment on above: Performed By: #### 4 [id number] #### [facility] [address] [place] [address] Dr. Jani Haywood DIAGNOSIS: Comment Normal [facility] Comment on above: Result Comment: NEGA TIVE FOR INTRAEPITHELIAL LESION OR MALIGNANCY. Performed at: WB Performed By: #### [id number] #### [facility] [address] [place] [address] Dr. Jani Haywood HPV Aptima Negative Normal Negative [facility] Comment on above: Result Comment: This nucleic acid amplification test detects fourteen high-risk HPV types (16,18,31,33,35,39,45,51,52,56,58,59,66,68) without differentiation. Performed at: =G Performed By: #### 4 [id number] #### [facility] [address] [address] [address] Jani Haywood Methodology: Comment Normal [facility] Comment on above: Result Comment: This liquid based ThinPrep(R) pap test was screened with the use of an image guided system. Performed at: WB Performed By: #### [id number] #### [facility] [address] [place] [address] Dr. Jani Haywood Note: Comment Normal [facility] Comment on above: Result Comment: The Pap smear is a screening test designed to aid in the detection of premalignant and malignant conditions of the uterine cervix. It is not a diagnostic procedure and should not be used as the sole means of detecting cervical cancer. Both false-positive and false-negative reports do occur. . Performed at: WB Performed By: #### [id number] #### [facility] [address] [address] [address] Jani Haywood Performed by: Comment Normal [facility] Comment on above: Result Comment: Nikki Schwab, Clerical Office (ASCP) Performed at: WB Performed By: #### [id number] #### [facility] [address] [address] [address] Jani Haywood Specimen adequacy: Comment Normal [facility] Comment on above: Result Comment: Sati sfactory for evaluation. Endocervical and/or squamous metaplastic cells (endocervical component) are present. Performed at: WB Performed By: #### 4 [id number] #### [facility] [address] [address] [address] Jani Haywood Vital Signs Date Time Vital Sign Value Performing Clinician Facility 07-30-2023 09:32-0500 Body mass index (BMI) [Ratio] 25.88 kg/m2 Reppler Work Phone: [facility] 07-30-2023 09:32-0500 Body weight 66.28 kg Reppler Work Phone: [facility] 07-30-2023 09:32-0500 Diastolic blood pressure 60 mm[Hg] Ivan Pollo DO Work Phone: [facility] 07-30-2023 09:32-0500 Systolic blood pressure 100 mm[Hg] Ivan Pollo Molecular Detection Work Phone: [facility] 07-23-2023 14:33-0500 Body mass index (BMI) [Ratio] 26.24 kg/m2 eTrese REYES Work Phone: [facility] 07-23-2023 14:33-0500 Body weight 67.19 kg Terese REYES Work Phone: [facility] 07-23-2023 14:33-0500 Diastolic blood pressure 68 mm[Hg] Terese REYES Work Phone: [facility] 07-23-2023 14:33-0500 Systolic blood pressure 110 mm[Hg] Terese REYES Work Phone: [facility] 11-24-2021 14:10-0400 Body height 160.02 cm Megan Oconnor Other Work Market Other 11-24-2021 14:10-0400 Body mass index (BMI) [Ratio] 20.55 kg/m2 Megan Oconnor Other Work Market Other 11-24-2021 14:10-0400 Body temperature 96.9 [degF] Megan Oconnor Other Work Market Other 11-24-2021 14:10-0400 Body weight 52.62 kg Megan Oconnor Other Work Market Other 11-24-2021 14:10-0400 SaO2% (BldA) [Mass fraction] 97 % Megan Oconnor Other Work Market Other Encounters Encounter Date Encounter Type Care Provider Facility Start: 07-30-2023 End: 07-30-2023 ambulatory IVAN POLLO Not Available Start: 07-30-2023 End: 07-30-2023 flow sheet Ivan Pollo DO Work Phone: [facility] Comment on above: Third trimester preg luan; Small for gestational age (SGA) Start: 07-23-2023 End: 07-23-2023 ambulatory TERESE AGUILA Not Available Start: 07-23-2023 End: 07-23-2023 flow sheet Terese REYES Work Phone: [facility] Comment on above: Low blood pressure r eading; Dizziness; Feeling faint; Third trimester Start: 07-21-2023 End: 07-21-2023 ambulatory YULISSA JAIME Facility:[facility] Start: 07-15-2023 End: 07-15-2023 ambulatory TERESE AGUILA Not Available Start: 07-01-2023 End: 07-01-2023 ambulatory IVAN POLLO Not Available Start: 06-18-2023 End: 06-18-2023 ambulatory TERESE AGUILA Not Available Start: 05-20-2023 End: 05-20-2023 ambulatory IVAN POLLO Not Available Start: 10-10-2022 Telephone encounter Leo [facility] Comment on above: 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 Start: 10-09-2022 ambulatory Yulissa WOOD Work Phone: Audiology Start: 09-24-2022 End: 09-24-2022 ambulatory RIMMA STERLING Facility:[facility] Start: 09-24-2022 End: 09-24-2022 Patient encounter procedure Rimma Sterling PAAnuradha Work Phone: Otolaryngology Comment on above: Cochlear implant in place (Primary Dx); Sensorineural hearing loss, asymmetrical; Sensorineural hearing loss, bilateral Start: 07-29-2022 End: 07-30-[address] ARIEL RAJAN Facility:[facility] Start: 07-18-2022 End: 07-18-[address] ROSA CARTER Facility:[facility] Start: 07-17-2022 Encounter for preprocedural laboratory examination DR ROSA CARTER [facility] Start: 07-16-2022 End: 07-17-[address] ROSA CARTER Facility:[facility] Start: 07-16-2022 End: 07-17-2022 Encounter for preprocedural laboratory examination DR ROSA CARTER Facility:[facility] Start: 07-02-2022 End: 07-03-[address] ROSA CARTER Facility:[facility] Start: 06-18-2022 End: 06-19-[address] ROSA CARTER Facility:[facility] Start: 11-27-2021 End: 11-27-[address] ROSA CARTER Facility:[facility] Start: 11-24-2021 End: 11-24-2021 ambulatory Megan Oconnor Other Work Market Other Start: 11-24-2021 Office outpatient vi sit [...] (3 - PPSV23 if available, else PCV20) [facility] Start: 04-22-2028 Screening for malign ant neoplasm of cervix [facility] Start: 04-26-2024 End: 04-26-2024 Patient encounter procedure 04/26/2024 9:00 AM EST Office Visit [facility] [address] [place] [id number] Ivan Abad, DO [address] [place] [address] [facility] Start: 08-13-2023 End: 08-13-2023 Patient encounter procedure 08/13/2023 11:20 AM EST Routine [facility] [address] [place] [id number] Ivan Abad, DO [address] [place] [address] [facility] Start: 07-30-2023 End: 07-30-2024 US biophysical profile w non stress test US biophysical profile w non stress test Imaging Routine Small for gestational age (SGA) Expected: 07/30/2023 (Approximate), Expires: 07/30/2024 [facility] Work Phone: Comment on above: Expected: 07/30/2023 (Approximate), Expires: 07/30/2024 Start: 07-30-2023 End: 07-30-2023 Patient encounter procedure 07/30/2023 9:20 AM EST Routine [facility] [address] [place] [id number] Ivan Abad, DO [address] [place], [place] [id number] [facility] Start: 07-23-2023 End: 07-23-2023 Professional / ancillary services management 07/23/2023 3:00 PM EST Ancillary Procedure [facility] [address] [place] [phone] [facility] Start: 02-20-2023 Influenza vaccination C [facility] Start: 06-22-2022 DEPRESSION ASSESSMENT DEPRESSION ASS ESSMENT [facility] Start: 10-20-2021 COVID-19 VACCINE (3 - Booster for Pfizer series) COVID-19 VACCINE (3 - Booster for Pfizer series) [facility] Start: 2019 Mammography MAMMOGRAM [facility] Start: 2019 Screening for malign ant neoplasm of breast Mammogram [facility] Start: 11-17-2009 HPV TESTING HPV TESTING [facility] Start: 11-17-2000 PAP TESTING PAP TESTING [facility] Start: 11-17-1998 Urine microalbumin profile DTAP,TDAP,TD (1 - Tdap) [facility] Start: 11-17-1997 HEPATITIS C SCREENING HEPATITIS C SC JOSE [facility] Start: 11-17-1997 HIV SCREENING HIV SCREENING [facility] Start: 1980 HEPATITIS B (1 of 3 - 3-dose series) HEPATITIS B (1 of 3 - 3-dose series) [facility] Immunizations Immunization Date Immunization Notes Care Provider Fa cility 03-22-2020 influenza virus vacc ine, unspecified formulation Terese REYES Work Phone: [facility] 08-13-2017 pneumococcal polysaccharide vaccine, 23 valent Rimma Sterling PA-C Work Phone: [facility] 08-10-2014 pneumococcal conjuga te vaccine, 13 valent Rimma Sterling PA-C Work Phone: [facility] Payers Date Payer Category Payer Unknown [id number] 2022 Unknown [id number] 1980 Unknown [id number] 2.16.84 [id number] 1979 Unknown [id number] 2.16.84 [id number] 1979 Unknown [id number] 2.16.84 [id number] 1979 Unknown [id number] 2.16.84 [id number] 1979 Unknown [id number] 2.16.84 [id number] 1979 Unknown [id number] 2.16.84 [id number] 1979 Unknown [id number] 2.16.84 [id number] 1979 Unknown [id number] 2.16.84 [id number] 1979 Unknown [id number] 2.16.84 [id number] 1979 Unknown [id number] 2.16.84 [id number] 1979 Unknown [id number] 2.16.84 [id number] 1979 Unknown [id number] 2.16.840 .[id number] 1979 Unknown [id number] 2.16.840 .[id number] 1960 [facility] [id number] Unknown [id number] 2.16.84 [id number] Social History Date Type Detail Facility Start: 03-16-2023 Sex Assigned At Work Market Other Start: 09-24-2022 End: 03-16-2023 Tobacco smoking status NHIS Never smoked tobacco [facility] Start: 09-24-2022 End: 03-16-2023 Tobacco use and exposure Smokeless tobacco non-user [facility] Start: 09-24-2022 Alcohol intake Current non-drinker of alcohol (finding) [facility] Start: 1980 Sex Assigned At Female [facility] Start: 07-23-2023 End: 07-30-2023 Alcohol intake Ex-drinker (finding) [facility] Start: 03-16-2023 History of Social function [facility] Start: 04-22-2023 Alcohol Comment occasional alcohol use, Caffeine intake: none [facility] Start: 12-25-2022 [facility] Start: 01-21-2023 Gender identity Identifies as female gender (finding) [facility] Start: 01-21-2023 Sexual orientation Heterosexual (finding) [facility] Medical Equipment Procedure Code Equipment Code Equipment Original Text Equipment Identifier Dates [id number]-Kind Implant - [id number] Start: 09-02-2017 Comment on above: Description: [...] Ivan Abad DO documented in this encounter [facility] 07-23-2023 History of Presen t illness Narrative Reason for Appointment: Patient ID: mAy Alfaro is a 42 y.o. female who [...] of: ERIC Smallwood documented in this encounter [facility] 07-21-2023 Note HNO ID: [id number] Author: YULISSA JAIME AUD Service: ? Author Type: Certified Professional Ergonomist Type: Progress Notes Filed: 07/21/2023 08:47 Note Text: [facility] COCHLEAR IMPLANT ADULT PROGRAMMING Name: Amy ALFARO [facility]#: [id number] Date of Service: July 21, 2023 Date of : 1980 Age: [age] year old COCHLEAR IMPLANT INFORMATION (see below for all device details) Updated: July 21, 2023 Right ear: Phonak Audeo [employer] Hearing Aid that was fit at an outside facility (November 2021) and is being managed by that facility. Left ear: External Processor: Cochlear Smallables [id number] (Nucleus 8; upgraded around January 2023) Processor SN: [id number] Processor ([id number]) SN: [id number] Magnet strength: 2 Internal Device: Cochlear [id number] Profile with Slim Modiolar Electrode Array Internal Device SN: [id number] Inactive electrodes: None Surgery Date: 09/02/2017 Initial [...] 6; Sensitivity: 12) before programming. See the [employer]oy[employer] Audiogram for obtained thresholds. Speech perception testing was completed at 60 glass products inspector using recorded stimuli in the sound field at 0 degrees azimuth. NOTE: The contralateral ear was not plugged and muffed during testing. The following testing and results were obtained: Jvqzcpaqu-Lrbgugp-Xonoiksie Words (CNC) Test Condition List # Phonemes [...] hours. * Revie (more content not included)... [facility] 10-10-2022 Miscellaneous Notes Medical Center Manager: Katerina Mina Patient: Hasmukh Alfaro 1980 Clinic: [facility] Certified Professional Ergonomist: Dr. Yulissa Jaime Appointment Length: 45 Minutes What are you looking to accomplish?: I d like to learn more about the Nucleus 8 and the process of upgrading Recipient's Stated Reason for Upgrading Clinic Request - Certified Professional Ergonomist recommended it [employer] - Processor more [...] steps are Acquisition Methods Recipient will receive Qwk-bu-Cpdzah cost estimate once order placed Next Steps If recipient decides to move forward with pursuing a Nucleus 8 upgrade and provides us with the necessary order information, we will start an order on their behalf. You will hear from Cochlear s Coat Padder team, via email/DocuSign to gain your approval or regarding an LMN to allow this patient to move forward in the process. Following completion of the upgrade process, I will invite the recipient to schedule time for a complimentary onboarding with our [employer] team so they can begin to maximize the use of their new Cochlear equipment. documented in this encounter [facility] 10-09-2022 Note HNO ID: [id number] Author: ISRAEL Champion Service: ? Author Type: Certified Professional Ergonomist Type: Progress Notes Filed: 10/09/2022 12:58 PM [...] any questions. Upgrade Consultation Clinic Patient Report Medical Center Manager: Katerina Mina Patient: Hasmukh Alfaro 1980 Clinic: [facility] Certified Professional Ergonomist: Dr. Yulissa Jaime Appointment Length: 45 Minutes What are you looking to accomplish?: I?d like to learn more about the Nucleus 8 and the process of upgrading Recipient's Stated Reason for Upgrading ? Clinic Request - Certified Professional Ergonomist recommended it ? [employer] - Processor [...] are Acquisition Methods ? Recipient will receive Vtf-yb-Pibmbf cost estimate once order placed Next Steps ? If recipient decides to move forward with pursuing a Nucleus 8 upgrade and provides us with the necessary order information, we will start an order on their behalf. You will hear from Cochlear?s Coat Padder team, via email/DocuSign to gain your approval or regarding an LMN to allow this patient to move forward in the process. Following completion of the upgrade process, I will invite the recipient to schedule time for a complimentary onboarding with our [employer] team so they can begin to maximize the use of their new Cochlear equipment. Warm Regards, Eloisa Vazquez, [facility]/A Clinical Certified Professional Ergonomist [facility] 10-09-2022 History of Presen t [...] any questions. Upgrade Consultation Clinic Patient Report Medical Center Manager: Katerina Mina Patient: Hasmukh Alfaro 1980 Clinic: [facility] Certified Professional Ergonomist: Dr. Yulissa Jaime Appointment Length: 45 Minutes What are you looking to accomplish?: I d like to learn more about the Nucleus 8 and the process of upgrading Recipient's Stated Reason for Upgrading Clinic Request - Certified Professional Ergonomist recommended it [employer] - Processor more [...] steps are Acquisition Methods Recipient will receive Rvx-wh-Fohtqn cost estimate once order placed Next Steps If recipient decides to move forward with pursuing a Nucleus 8 upgrade and provides us with the necessary order information, we will start an order on their behalf. You will hear from Cochlear s Coat Padder team, via email/DocuSign to gain your approval or regarding an LMN to allow this patient to move forward in the process. Following completion of the upgrade process, I will invite the recipient to schedule time for a complimentary onboarding with our [employer] team so they can begin to maximize the use of their new Cochlear equipment. Warm Regards, Eloisa Vazquez, GIOVANNY/A Clinical Certified Professional Ergonomist documented in this encounter [facility] 09-24-2022 Note HNO ID: [id number] Author: Rimma Sterling PA-C Service: ? Author Type: Physician Insurance And Financial Services Agent Type: Progress Notes Filed: 09/24/2022 9:53 AM Note Text: History of Present Illness Ms. AMY ALFARO is a 41 year old year old female presenting for: referred by SELF And is a patient of DO Abel Card DO [address] [place] [address] Communication will be via the electronic record [...] (FLONASE) 50 mcg/actuation nasal spray Use 1 [place] in each nostril as needed. multivitamin (DAILY [...] Medical Decision Making Level: 2 - Straightforward [facility] 09-24-2022 Instructions Rimma Sterling PA-C - 09/24/2022 9:[address] Audra Umanzor use his name on paperwork documented in this encounter [facility] 09-24-2022 History of Presen t illness Narrative History of Present Illness Ms. AMY ALFARO is a 41 year old year old female presenting for: referred by SELF And is a patient of DO Abel Card DO [facility] [place] [address] Communication will be via the electronic record [...] (FLONASE) 50 mcg/actuation nasal spray Use 1 [place] in each nostril as needed. multivitamin (DAILY [...] 2 - Straightforward documented in this encounter [facility] 07-18-2022 Note EXAMINATION: US PELV IS HISTORY: Surgical procedure COMPARISON: Ultrasound less than 14 weeks 07/16/2022 TECHNIQUE: Transabdominal and transvaginal sonographic examination. FINDINGS: Final images show an empty endometrial cavity. IMPRESSION: 1. No appreciable products of conception within endometrial cavity following dilation and curettage. Electronically authenticated by: ALEXI BRANCH Date: 2022-07-18 08:21 [facility] 11-24-2021 Evaluation note Encounter Date [...] Fungal rash of trunk (ICD-10 - B36.9) Work Market Other Evaluation note* Diagnosis Cochlear implant in place- Primary Other postprocedural status Sensorineural hearing loss, asymmetrical Sensorineural hearing loss, bilateral [facility] Diagnosis Low blood pressure [...] Surgical History cochlear implant Surgical History D&C Work Market Other Summary Purpose Family History No Family History Records FoundNo Family History Records FoundNo Family History Records Found Advance Directives No Advanced Directives Records FoundNo Advanced Directives Records FoundNo Advanced Directives Records Found Additional Source Comments REASON FOR VISIT (unrecogniz ed section and content) Reason Comments Hearing Loss New. Self referral. CI LT side. Last audio 03/18/22. Denies otalgia and otorrhea. Reason Comments Accounts Payable Analyst - Other Reason Comments Dizziness Hypotension Reason Comments Routine Visit INFORMATION SOURCE (unrecogn ized section and content) DATE CREATED AUTHOR 07/30/2022 [facility] DATE CREATED AUTHOR AUTHOR'S ORGANIZ ATION 07/22/2023 [facility] DATE CREATED AUTHOR AUTHOR'S ORGANIZ ATION 07/31/2023 [facility] EPIC Source Comments (unrecognize d section and content) In the event this informatio n is protected by the Federal Confidentiality of Alcohol and Drug Abuse Patient Records regulations: The Federal rules restrict any use of the information to criminally investigate or prosecute any alcohol or drug abuse patient.[facility] the event this information is protected by the Federal Confidentiality of Alcohol and Drug Abuse Patient Records regulations: The Federal rules restrict any use of the information to criminally investigate or prosecute any alcohol or drug abuse patient.[facility] the event this information is protected by the Federal Confidentiality of Alcohol and Drug Abuse Patient Records regulations: The Federal rules restrict any use of the information to criminally investigate or prosecute any alcohol or drug abuse patient.[facility] Care Teams (unrecognized sec tion and content) Director Of Maternity Services Relationship Specialty Start Date End Date Abel Sun PCP - General Family Medicine 03/15/14 Director Of Maternity Services Relationship Specialty Start Date End Date Abel Sun PCP - General Family Medicine 03/15/14 Director Of Maternity Services Relationship Specialty Start Date End Date Abel Sun PCP - General Family Medicine 03/15/14 Director Of Maternity Services Relationship Specialty Start Date End Date Ariel Rajan MD [address] [place] [address] PCP - General 02/16/23 Director Of Maternity Services Relationship Specialty Start Date End Date Ariel Rajan MD [address] [place] [address] PCP - General 02/16/23 FOR RECORDS PERTAINING [...] BE BASED ON THE PRIMARY CLINICAL RECORDS. [facility] [employer] [facility]. provides no warranty or guarantee of the accuracy or completeness of information in this document.
[2023-08-21 08:16] VITALS: BP 115/60; PULSE 73
--- NOTE | 2023-08-21 08:41 | US_ITS ---
[address] [address] Patient Name: HILLARY ALFARO MRN: [id number] date: 1980 Sex: F Assigned Patient Location: [facility] Current Patient Location: [facility] Accession/Order Number: [id number] Exam Date: 08/21/2023 08:42 Report Date: 08/21/2023 09:07 At the request of: IVAN KARIMI Procedure: US OB BPP w non-stress EXAMINATION: US OB BPP w non-stress HISTORY: variables with NST COMPARISON: No relevant comparison available. TECHNIQUE: Ultrasound biophysical profile was performed in the radiology department. FINDINGS: BREATHING MOVEMENTS: 2.0 GROSS BODY MOVEMENTS: 2.0 TONE: 2.0 QUALITATIVE AMNIOTIC FLUID VOLUME: 2.0 PRESENTATION: CEPHALIC HEART RATE: 143.6 bpm H.B./min AMNIOTIC FLUID VOLUME: 10.5 cm cm GESTATIONAL AGE: 36 weeks 1 days CONCLUSION: Total biophysical profile score: 8.0 Electronically authenticated by: RIMMA BATRES Date: 08/21/2023 09:07
== END 2023-08-21 09:55 | disposition home or self-care (01) ==
LOC: FBCO 07:31 → FBC 07:55
PROVIDERS: PCP Family Medicine; Visit Provider Obstetrics & Gynecology
DX: O26.843 Uterine size-date discrepancy, third trimester (principal); Z3A.36 36 weeks gestation of pregnancy
CPT/HCPCS: 59025; 76818

== ENCOUNTER 2023-08-25 07:30 | Outpatient (OUT) | payer OTHER, SELFPAY ==
--- NOTE | 2023-08-25 08:01 | US_ITS ---
[address] [address] Patient Name: HILLARY ALFARO MRN: [id number] date: 1980 Sex: F Assigned Patient Location: [facility] Current Patient Location: Accession/Order Number: [id number] Exam Date: 08/25/2023 08:02 Report Date: 08/25/2023 08:57 At the request of: IVAN KARIMI Procedure: US OB BPP w non-stress EXAMINATION: US OB BPP w non-stress HISTORY: Small for gestatinal age P05.10 COMPARISON: No relevant comparison available. TECHNIQUE: Ultrasound biophysical profile was performed in the radiology department. FINDINGS: BREATHING MOVEMENTS: 2.0 GROSS BODY MOVEMENTS: 2.0 TONE: 2.0 QUALITATIVE AMNIOTIC FLUID VOLUME: 2.0 PRESENTATION: CEPHALIC HEART RATE: 137.1 bpm H.B./min AMNIOTIC FLUID VOLUME: 10.7 cm cm GESTATIONAL AGE: 36 weeks 5 days CONCLUSION: Total biophysical profile score: 8.0 Electronically authenticated by: RIMMA BATRES Date: 08/25/2023 08:57
--- OUTSIDE RECORDS SUMMARY | 2023-08-25 08:03 | XMS_ITS | CCD ---
Author Name Unknown Address [address] [place] [address] Organization [facility] Care Team Providers Care Evp Name Role Phone Megan Oconnor Unavailable ANDRES, [...] LISTED Primary Care Unavaila ble KARASIK, DR ELE Consulting Unavailable Abel Sun Primary Care Provider YULISSA JAIME Attending Unavailable ABEL SUN Primary Care Unavailab RIMMA Sutherland Attending Unavailable ABEL SUN Primary Care Unavailab Ariel Rich MD Primary Care Provider [phone] TERESE AGUILA Attending Unavailable IVAN ABAD Attending Unavailable TERESE AGUILA Attending Unavailable TERESE AGUILA Attending Unavailable IVAN ABAD Attending Unavailable IVAN ABAD Attending Unavailable IVAN ABAD Attending Unavailable IVAN ABAD Attending Unavailable Allergies Allergy Classification Reported Allergen(s) Allergy Type Date of Onset Reaction(s) Facility (4 sources) Seasonal allergy; Translations: [SEASONAL ALLERGIES] Allergy to substance 4 Cough [facility] (4 sources) Octacosanol Drug Allergy 4 Cough [facility] (4 sources) Other Propensity to adverse reactions 3 Unknown [facility] Medications Current Medications Medication Drug Class(es) Dates Sig (Normalized) Sig (Original) [id number] 200 actuat albuterol 0.09 mg/actuat metered dose [...] on above: Take 1 capsule by mo [facility] as needed. fluticasone propionate 0.05 mg/actuat metered dose nasal spray (3 sources) Corticosteroid fluticasone (FLONASE) 50 mcg/actuation nasal spray Indications: Bilateral sensorineural hearing loss , Autoimmune disorder of inner ear Use 1 Cebolla in each nostril as needed. 0 Active Comment on above: Use 1 Cebolla in each nostril as needed. LOW-DOSE ASPIRIN PO (2 sources) Start: 04-02-2023 End: 07-23-2023 LOW-DOSE ASPIRIN PO multivitamin (DAILY MULTIPLE) tablet (3 sources) take 1 tablet by mouth once daily multivitamin (DAILY MULTIPLE) tablet Take 1 tablet by mouth once daily. 0 Active Comment on above: Take 1 tablet by [facility] once daily. predniSONE 10 mg oral [...] low weight; and growth retardation (2 sources) Chiem-cdi-qxryb baby; Translations: [Fowler small for gestational age, unspecified weight] 07-30-2023 [...] UA Negative Negative - 4(70) +++ mg/dL [facility] Blood, UA Positive Negative - 50 Bobby/mcL [facility] Comment on above: trace-intact Clarity, UA Clear [facility] re Color, UA Yellow [facility] Glucose, UA Negative Negative - 1999(110) ++++ mg/dL [facility] Interpretation and review of laboratory results Abnormal [facility] Ketones, UA Negative Negative - 160(16) ++++ mg/dL [facility] Leukocytes, UA Positive Negative - 500+++ Suzette/mcL [facility] Comment on above: small Nitrite, UA Negative Negative - Positive [facility] pH, UA 6.0 5 - 9 [facility], [facility] Negative Negative - 1999(20) ++++ mg/dL [facility] Spec Grav, UA 1.010 1 - 1.03 [facility] Urobilinogen, UA 0.2 0.2 - 12 mg/dL [facility] Urinalysis macro (dipstick) panel (U)on 07-23-2023 Bilirubin, UA Negative Negative - 4(70) +++ mg/dL [facility] Blood, UA Negative Negative - 50 Bobby/mcL [facility] Clarity, UA Clear [facility] re Color, UA Yellow [facility] Glucose, UA Negative Negative - 1999(110) ++++ mg/dL [facility] Interpretation and review of laboratory results Abnormal [facility] Ketones, UA Negative Negative - 160(16) ++++ mg/dL [facility] Leukocytes, UA Positive Negative - 500+++ Suzette/mcL [facility] Comment on above: small Nitrite, UA Negative Negative - Positive [facility] pH, UA 7.0 5 - 9 [facility] Protein, UA Negative Negative - 1999(20) ++++ mg/dL [facility] Spec Grav, UA 1.015 1 - 1.03 [facility] Urobilinogen, UA 0.2 0.2 - 12 mg/dL [facility] CNOVon 07-21-2023 CNOV Office Visit (OTAUCR ) AMY ALFARO ([id number]) 1980 F Date Time Provider Department 07/21/23 7:30 AM YULISSA JAIME During your visit today, we recorded the following information about you: Yulissa Jaime AUD 07/21/2023 8:47 AM Signed [facility] [place] [facility] [employer]CH[employer]PL[employer] ADULT PROGRAMMING Name: Amy ALFARO [facility]#: [id number] Date of Service: July 21, 2023 Date of : 1980 Age: [age] year old COCHLEAR IMPLANT INFORMATION (see below for all device details) Updated: July 21, 2023 Right ear: Phonak Audeo RITE Hearing Aid that was fit at an outside facility (November 2021) and is being managed by that facility. Left ear: External Processor: Cochle[employer] Met[employer] [id number] (Nucleus 8; upgraded around January 2023) Processor SN: [id number] Processor ([id number]) SN: [id number] Magnet strength: 2 Internal Device: Cochlear [id number] Profile with Slim Modiolar Electrode Array Internal Device SN: [id number] Inactive electrodes: None Surgery Date: 09/02/2017 Initial [...] Speech perception testing was completed at 60 clinical transformation specialist using recorded stimuli in the sound field at 0 degrees azimuth. NOTE: The contralateral ear was not plugged and muffed during testing. The following testing and results were obtained: Tzsielwba-Jorjvkw-Kyi sonant Words (CNC) Test Condition List # [...] etc. Shoul (more content not included)... Normal 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 Yulissa Jaime Appointment Length: 45 Minutes What are you looking to accomplish?: I?d like to learn more about the Nucleus 8 and the process of upgrading Recipient's Stated Reason for Upgrading ? Clinic Request - Welding Machine Operator Helper Gas recommended it ? Useful Life - Processor [...] are Acquisition Methods ? Recipient will receive Pik-ux-Colpko cost estimate once order placed Next Steps ? If recipient decides to move forward with pursuing a Nucleus 8 upgrade and provides us with the necessary order information, we will start an order on their behalf. 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 - fluticasone (FLONASE) 50 mcg/actuation nasal spray Use 1 Cebolla in each nostril as needed. - multivitamin [...] Encounter Status:Closed by LEO ATKINSON [facility] ) ALFAROAMY MAYNARD Shravan ([id number]) 1980 F Date Time Provider Department 09/24/22 9:30 AM RIMMA STERLING OTOLJAMES During your visit today, we recorded the following information about you: Rimma Sterling PA-C 09/24/2022 9:53 AM Signed History of Present Illness Ms. AMY ALFARO is a 41 year old year old female presenting for: referred by SELF And is a patient of DO Abel Card DO [address] [id number] Communication will be via the electronic record [...] (FLONASE) 50 mcg/actuation nasal spray Use 1 Cebolla in each nostril as needed. multivitamin (DAILY [...] ALLERGIES 1 (more content not included)... Normal [facility] CBC AUTO DIFFon 07-29-2022 BASO # 0.0 103/ul Normal 0.0-0.1 [facility] Comment on above: Performed By: #### C BC #### [facility] [address] [place] [address] Dr. Jani Haywood Basophils/100 WBC (Bld) 0.6 % Normal 0.2-2.0 [facility] Comment on above: Performed By: #### C BC #### [facility] [address] [place] [address] Dr. Jani Haywood EO # 0.1 103/ul Normal 0.0-0.7 [facility] Comment on above: Performed By: #### C BC #### [facility] [address] [place] [address] Dr. Jani Haywood Eosinophils/100 WBC (Bld) 2.5 % Normal 0.9-7.0 [facility] Comment on above: Performed By: #### C BC #### [facility] [address] [place] [address] Dr. Jani Haywood Erythrocyte distribution width (RBC) [Ratio] 13.7 % Normal 11.0-15.0 [facility] Comment on above: Performed By: #### C BC #### [facility] [address] [place] [address] Dr. Jani Haywood Hematocrit (Bld) [Volume fraction] 40.3 % Normal 36.0-48.0 [facility] Comment on above: Performed By: #### C BC #### [facility] [address] [place] [address] Dr. Jani Haywood Hemoglobin (Bld) [Mass/Vol] 12.7 g/dL Normal 12.0-16.0 [facility] Comment on above: Performed By: #### C BC #### [facility] [address] [place] [address] Dr. Jani Haywood IG # 0.01 10e3/ul Normal 0.00-0.03 [facility] Comment on above: Performed By: #### C BC #### [facility] [address] [place] [address] Dr. Jani Haywood IG % 0.2 % Normal 0.0-0.5 [facility] Comment on above: Performed By: #### C BC #### [facility] [address] [place] [address] Dr. Jani Haywood LYMPH # 1.8 103/ul Normal 1.2-3.8 [facility] Comment on above: Performed By: #### C BC #### [facility] [address] [place] [address] Dr. Jani Haywood Lymphocytes/100 WBC (Bld) 35.2 % Normal 20.5-60.0 [facility] Comment on above: Performed By: #### C BC #### [facility] [address] [place] [address] Dr. Jani Haywood MANUAL DIFF REQ NO Normal [facility] Comment on above: Performed By: #### C BC #### [facility] [address] [place] [address] Dr. Jani Haywood MCH (RBC) [Entitic mass] 30.5 pg Normal 26.7-34.0 [facility] Comment on above: Performed By: #### C BC #### [facility] [address] [place] [address] Dr. Jani Haywood MCHC (RBC) [Mass/Vol] 31.5 g/dL Normal 29.9-35.2 [facility] Comment on above: Performed By: #### C BC #### [facility] [address] [place] [address] Dr. Jani Haywood MCV (RBC) [Entitic vol] 96.9 fL Normal 81.0-99.0 [facility] Comment on above: Performed By: #### C BC #### [facility] [address] [place] [address] Dr. Jani Haywood MONO # 0.4 103/ul Normal 0.3-0.8 [facility] Comment on above: Performed By: #### C BC #### [facility] [address] [place] [address] Dr. Jani Haywood Monocytes/100 WBC (Bld) 8.1 % Normal 1.7-12.0 [facility] Comment on above: Performed By: #### C BC #### [facility] [address] [place] [address] Dr. Jani Haywood NEUT # 2.8 103/ul Normal 1.4-6.5 [facility] Comment on above: Performed By: #### C BC #### [facility] [address] [place] [address] Dr. Jani Haywood Neutrophils/100 WBC (Bld) 53.4 % Normal 43.0-75.0 [facility] Comment on above: Performed By: #### C BC #### [facility] [address] [place] [address] Dr. Jani Haywood Platelet mean volume (Bld) [Entitic vol] 10.0 fL Normal 9.5-13.5 [facility] Comment on above: Performed By: #### C BC #### [facility] [address] [place] [address] Dr. Jani Haywood PLT 271 103/ul Normal 150-450 [facility] Comment on above: Performed By: #### C BC #### [facility] [address] [place] [address] Dr. Jani Haywood RBC 4.16 106/ul Critically low 4.20-5.40 [facility] Comment on above: Performed By: #### C BC #### [facility] [address] [place] [address] Dr. Jani Haywood WBC 5.2 103/ul Normal 4.0-11.0 [facility] Comment on above: Performed By: #### C BC #### [facility] [address] [place] [address] Dr. Jani Haywood IRONon 07-29-2022 Iron [Mass/Vol] 64.0 ug/dL Normal 50.0-170.0 [facility] Comment on above: Performed By: #### A 1C #### [facility] [address] [place] [address] Dr. Jani Haywood PROF 14(COMP METB)on 023 Albumin [Mass/Vol] 3.5 g/dL Normal 3.4-5.0 [facility] Comment on above: Performed By: #### C MP #### [facility] [address] [place] [address] Dr. Jani Haywood Albumin/Globulin [Mass ratio] 0.9 {ratio} Normal [facility] Comment on above: Performed By: #### C MP #### [facility] [address] [address] [address] Jani Haywood ALP [Catalytic activity/Vol] 73 U/L Normal 46-116 [facility] Comment on above: Performed By: #### C MP #### [facility] [address] [address] [address] Jnai Haywood ALT [Catalytic activity/Vol] 12 U/L Critically low 14-59 [facility] Comment on above: Performed By: #### C MP #### [facility] [address] [address] [address] Jani Haywood Anion gap [Moles/Vol] 11.0 mmol/L Normal [facility] Comment on above: Performed By: #### C MP #### [facility] [address] [address] [address] Jani Haywood AST [Catalytic activity/Vol] 13 U/L Critically low 15-37 [facility] Comment on above: Performed By: #### C MP #### [facility] [address] [address] [address] Jani Haywood Bilirubin [Mass/Vol] 0.5 mg/dL Normal 0.2-1.0 [facility] Comment on above: Performed By: #### C MP #### [facility] [address] [address] [address] Jani Haywood Calcium [Mass/Vol] 8.6 mg/dL Normal 8.5-10.1 [facility] Comment on above: Performed By: #### C MP #### [facility] [address] [address] [address] Jani Haywood Chloride [Moles/Vol] 105 mmol/L Normal 98-107 [facility] Comment on above: Performed By: #### C MP #### [facility] [address] [address] [address] Jani Haywood CO2 [Moles/Vol] 28.8 mmol/L Normal 21.0-32.0 [facility] Comment on above: Performed By: #### C MP #### [facility] [address] [address] [address] Jani Haywood Creatinine [Mass/Vol] 0.87 mg/dL Normal 0.55-1.02 [facility] Comment on above: Performed By: #### C MP #### [facility] [address] [address] [address] Jani Haywood EGFR-AF SWISS >60 Normal >=60 [facility] Comment on above: Performed By: #### C MP #### [facility] [address] [address] [address] Jani Haywood EGFR-NON AF SWISS >60 Normal >=60 [facility] Comment on above: Performed By: #### C MP #### [facility] [address] [address] [address] Jani Haywood Globulin (S) [Mass/Vol] 3.7 g/dL Normal [facility] Comment on above: Performed By: #### C MP #### [facility] [address] [address] [address] Jani Haywood Glucose [Mass/Vol] 95 mg/dL Normal 74-106 [facility] Comment on above: Performed By: #### C MP #### [facility] [address] [address] [address] Jani Haywood Potassium [Moles/Vol] 3.8 mmol/L Normal 3.5-5.1 [facility] Comment on above: Performed By: #### C MP #### [facility] [address] [address] [address] Jani Haywood Protein [Mass/Vol] 7.2 g/dL Normal 6.4-8.2 [facility] Comment on above: Performed By: #### C MP #### [facility] [address] [address] [address] Jani Haywood Sodium [Moles/Vol] 141 mmol/L Normal 136-145 [facility] Comment on above: Performed By: #### C MP #### [facility] [address] [address] [address] Jani Haywood Urea nitrogen [Mass/Vol] 12.0 mg/dL Normal 7.0-18.0 [facility] Comment on above: Performed By: #### C MP #### [facility] [address] [address] [address] Jani Haywood Urea nitrogen/Creatinine [Mass ratio] 13.8 mg/mg Normal [facility] Comment on above: Performed By: #### C MP #### [facility] [address] [address] [address] Jani Haywood Covid-19 PCR ([facility])on 06-23 SARS-CoV-2 (COVID-19) RNA CAROLE+probe Ql (Unsp spec) Not detected Normal NOT DETECTED [facility] Comment on above: Result Comment: This test is not yet approved or cleared by the [place] FDA. When there are no FDA-approved or cleared tests available, and other criteria are met, FDA can make tests available under an emergency access mechanism called an Emergency Use Authorization (EUA). The EUA for this test is supported by the [place] of Health and Human Service's (HHS's) declaration [...] SARS-CoV-2. Performed By: #### C VDTB #### [facility] [address] [address] [address] Jani Haywood US PREG <14 WKSon [...] Intrauterine with no detectable heartbeat. 2. Dr. Campos was notified of these findings by the semiconductors wafer breaker at time of imaging. Electronically authenticated by: ALEXI BRANCH Date: 2022-07-16 13:36 Normal [facility] HEP B SURFACE ANTIGEN SCREEN on 07-03-2022 HBsAg Screen Negative Normal Negative [facility] Comment on above: Performed By: #### A 1C #### [facility] [address] [place] [address] Dr. Jani Haywood HEPATITIS C VIRUS AB W/ REFL EX QUANTon 07-03-2022 HCV AB <0.1 Normal 0.0-0.9 [facility] Comment on above: Performed By: #### H CVPCRR #### [facility] [address] [place] [address] Dr. Jani Haywood Interpretation: Comment Normal [facility] Comment on above: Result Comment: Nega tive Not infected with HCV, unless recent infection is suspected or other evidence exists to indicate HCV infection. Performed By: #### H CVPCRR #### [facility] [address] [place] [address] Dr. Jani Haywood HIV 1 AND 2 WITH REFLEXon HIV Screen 4th Generation wRfx Non-Reactive Normal Non Reactive [facility] Comment on above: Result Comment: HIV Negative HIV-1/HIV-2 antibodies and HIV-1 p24 antigen were NOT detected. There is no laboratory evidence of HIV infection. Performed By: #### H IV12 #### [facility] [address] [place] [address] Dr. Jani Haywood RPR QUANTon 07-03-2022 Rapid Plasma Reagin, Quant Non-Reactive Normal NonRea<1:1 [facility] Comment on above: Result Comment: Plea se Note: This test does not meet current guidelines for screening and diagnosis of syphilis. This test is intended for following treatment response in patients being treated for syphilis infection. To screen for syphilis infection, a reflex cascade that includes both RPR and a treponema-specific assay should be utilized, such as Treponema pallidum (Syphilis) Screening Day (648177) or Rapid Plasma Reagin (RPR) Test With Reflex to Quantitative RPR and Confirmatory Treponema pallidum Antibodies (700275). Performed By: #### R PRQ #### [facility] [address] [place] [address] Dr. Jani Haywodo RUBELLA AB IGGon 07-03-2022 Rubella Antibodies, IgG 2.92 index Normal Immune >0.99 [facility] Comment on above: Result Comment: Non- immune <0.90 Equivocal 0.90 - 0.99 Immune >0.99 Performed By: #### A 1C #### [facility] [address] [place] [address] Dr. Jani Haywood CBC AUTO DIFFon 07-02-2022 BASO # 0.1 103/ul Normal 0.0-0.1 [facility] Comment on above: Performed By: #### C BC #### [facility] [address] [place] [address] Dr. Jani Haywood Basophils/100 WBC (Bld) 0.7 % Normal 0.2-2.0 [facility] Comment on above: Performed By: #### C BC #### [facility] [address] [place] [address] Dr. Jani Haywood EO # 0.1 103/ul Normal 0.0-0.7 [facility] Comment on above: Performed By: #### C BC #### [facility] [address] [place] [address] Dr. Jani Haywood Eosinophils/100 WBC (Bld) 1.2 % Normal 0.9-7.0 [facility] Comment on above: Performed By: #### C BC #### [facility] [address] [place] [address] Dr. Jani Haywood Erythrocyte distribution width (RBC) [Ratio] 13.7 % Normal 11.0-15.0 [facility] Comment on above: Performed By: #### C BC #### [facility] [address] [place] [address] Dr. Jani Haywood Hematocrit (Bld) [Volume fraction] 37.9 % Normal 36.0-48.0 [facility] Comment on above: Performed By: #### C BC #### [facility] [address] [place] [address] Dr. Jani Haywood Hemoglobin (Bld) [Mass/Vol] 12.6 g/dL Normal 12.0-16.0 [facility] Comment on above: Performed By: #### C BC #### [facility] [address] [place] [address] Dr. Jani Haywood IG # 0.02 10e3/ul Normal 0.00-0.03 [facility] Comment on above: Performed By: #### C BC #### [facility] [address] [place] [address] Dr. Jani Haywood IG % 0.3 % Normal 0.0-0.5 [facility] Comment on above: Performed By: #### C BC #### [facility] [address] [place] [address] Dr. Jani Haywood LYMPH # 1.6 103/ul Normal 1.2-3.8 [facility] Comment on above: Performed By: #### C BC #### [facility] [address] [place] [address] Dr. Jani Haywood Lymphocytes/100 WBC (Bld) 21.5 % Normal 20.5-60.0 [facility] Comment on above: Performed By: #### C BC #### [facility] [address] [place] [address] Dr. Jani Haywood MANUAL DIFF REQ NO Normal [facility] Comment on above: Performed By: #### C BC #### [facility] [address] [place] [address] Dr. Jani Haywood MCH (RBC) [Entitic mass] 30.4 pg Normal 26.7-34.0 [facility] Comment on above: Performed By: #### C BC #### [facility] [address] [place] [address] Dr. Jani Haywood MCHC (RBC) [Mass/Vol] 33.2 g/dL Normal 29.9-35.2 [facility] Comment on above: Performed By: #### C BC #### [facility] [address] [place] [address] Dr. Jani Haywood MCV (RBC) [Entitic vol] 91.3 fL Normal 81.0-99.0 [facility] Comment on above: Performed By: #### C BC #### [facility] [address] [place] [address] Dr. Jani Haywood MONO # 0.5 103/ul Normal 0.3-0.8 [facility] Comment on above: Performed By: #### C BC #### [facility] [address] [place] [address] Dr. Jani Haywood Monocytes/100 WBC (Bld) 6.6 % Normal 1.7-12.0 [facility] Comment on above: Performed By: #### C BC #### [facility] [address] [place] [address] Dr. Jani Haywood NEUT # 5.1 103/ul Normal 1.4-6.5 [facility] Comment on above: Performed By: #### C BC #### [facility] [address] [place] [address] Dr. Jani Haywood Neutrophils/100 WBC (Bld) 69.7 % Normal 43.0-75.0 [facility] Comment on above: Performed By: #### C BC #### [facility] [address] [place] [address] Dr. Jani Haywood Platelet mean volume (Bld) [Entitic vol] 10.2 fL Normal 9.5-13.5 [facility] Comment on above: Performed By: #### C BC #### [facility] [address] [place] [address] Dr. Jani Haywood PLT 281 103/ul Normal 150-450 [facility] Comment on above: Performed By: #### C BC #### [facility] [address] [address] [address] Jani Haywood RBC 4.15 106/ul Critically low 4.20-5.40 [facility] Comment on above: Performed By: #### C BC #### [facility] [address] [address] [address] Jani Haywood WBC 7.3 103/ul Normal 4.0-11.0 [facility] Comment on above: Performed By: #### C BC #### [facility] [address] [address] [address] Jani Haywood GLYCOHEMOGLOBIN A1Con 2022 ADA RECOMMENDATION SEE BELOW Normal [facility] Comment on above: Result Comment: ADA RECOMMENDED LIMIT 4.0 - 6.0 ADA THERAPEUTIC TARGET < 7.0 ACTION SUGGESTED > 7.0 Performed By: #### A 1C #### [facility] [address] [place] [address] Dr. Jani Haywood Glucose [Mass/Vol] 103 mg/dL Normal [facility] Comment on above: Performed By: #### A 1C #### [facility] [address] [place] [address] Dr. Jani Haywood HbA1c (Bld) [Mass fraction] 5.2 % Normal 4.5-6.2 [facility] Comment on above: Performed By: #### A 1C #### [facility] [address] [place] [address] Dr. Jani Haywood CRISTELA BOX TEST PT SEND OUTo n 07-02-2022 SENT TO REF LAB 07/02/2022 Normal [facility] Comment on above: Performed By: #### N BOX #### [facility] [address] [place] [address] Dr. Jani Haywood TYPE AND SCREENon 07-02-2022 TYPE AND SCREEN Negative Normal [facility] Comment on above: Performed By: #### A 1C #### [facility] [address] [place] [address] Dr. Jani Haywood US PREG TVon 06-18-2022 [...] by: RIMMA BATRES Date: 2022-06-18 16:09 Normal [facility] PAP ACOG PANEL 2: 30 to 65on 12-03-2021 . . Normal [facility] Comment on above: Result Comment: Perf ormed at: WB Performed By: #### [id number] #### [facility] [address] [place] [address] Dr. Jani Haywood Age Gdln ACOG Testing 30-65 Normal [facility] Comment on above: Performed By: #### [id number] #### [facility] [address] [place] [address] Dr. Jani Haywood DIAGNOSIS: Comment Normal [facility] Comment on above: Result Comment: NEGA TIVE FOR INTRAEPITHELIAL LESION OR MALIGNANCY. Performed at: WB Performed By: #### [id number] #### [facility] [address] [place] [address] Dr. Jani Haywood HPV Aptima Negative Normal Negative [facility] Comment on above: Result Comment: This nucleic acid amplification test detects fourteen high-risk HPV types (16,18,31,33,35,39,45,51,52,56,58,59,66,68) without differentiation. Performed at: =G Performed By: #### [id number] #### [facility] [address] [address] [address] Jani Haywood Methodology: Comment Normal [facility] Comment on above: Result Comment: This liquid based ThinPrep(R) pap test was screened with the use of an image guided system. Performed at: WB Performed By: #### [id number] #### [facility] [address] [place] [address] Dr. Jani Haywood Note: Comment [facility] Comment on above: Result Comment: The Pap smear is a screening test designed to aid in the detection of premalignant and malignant conditions of the uterine cervix. It is not a diagnostic procedure and should not be used as the sole means of detecting cervical cancer. Both false-positive and false-negative reports do occur. . Performed at: WB Performed By: #### [id number] #### [facility] [address] [address] [address] Jani Haywood Performed by: Comment Normal [facility] Comment on above: Result Comment: Nikki Schwab, Field Hockey Coach (ASCP) Performed at: WB Performed By: #### [id number] #### [facility] [address] [place] [address] Dr. Jani Haywood Specimen adequacy: Comment Normal [facility] Comment on above: Result Comment: Sati sfactory for evaluation. Endocervical and/or squamous metaplastic cells (endocervical component) are present. Performed at: WB Performed By: #### [id number] #### [facility] [address] [place] [address] Dr. 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 07-30-2023 09:32-0500 Body weight 66.28 kg Ivan Pollo Siperian Work Phone: [facility] 07-30-2023 09:32-0500 Diastolic blood pressure 60 mm[Hg] Ivan Pollo DO Work Phone: [facility] 07-30-2023 09:32-0500 Systolic blood pressure 100 mm[Hg] Ivan Pollo DO Work Phone: [facility] 07-23-2023 14:33-0500 Body mass index (BMI) [Ratio] 26.24 kg/m2 Terese REYES Work Phone: [facility] 07-23-2023 14:33-0500 Body weight 67.19 kg Terese REYES Work Phone: [facility] 07-23-2023 14:33-0500 Diastolic blood pressure 68 mm[Hg] Terese REYES Work Phone: [facility] 07-23-2023 14:33-0500 Systolic blood pressure 110 mm[Hg] Terese REYES Work Phone: [facility] 11-24-2021 14:10-0400 Body height 160.02 cm Megan Oconnor Other [facility] Other 11-24-2021 14:10-0400 Body mass index (BMI) [Ratio] 20.55 kg/m2 Megan Sorensenault Other [facility] Other 11-24-2021 14:10-0400 Body temperature 96.9 [degF] Megan Sorensenault Other [facility] Other 11-24-2021 14:10-0400 Body weight 52.62 kg Megan Oconnor Other [facility] Other 11-24-2021 14:10-0400 SaO2% (BldA) [Mass fraction] 97 % Megan Oconnor Other [facility] Other Encounters Encounter Date Encounter Type Care Provider Facility Start: 08-20-2023 End: 08-20-2023 ambulatory IVAN POLLO Not Available Start: 08-13-2023 End: 08-13-2023 ambulatory IVAN POLLO Not Available Start: 07-30-2023 End: 07-30-2023 ambulatory IVAN POLLO Not Available Start: 07-30-2023 End: 07-30-2023 flow sheet Ivan Pollo DO Work Phone: [facility] Comment on above: Third trimester preg luan; Small for gestational age (SGA) Start: 07-23-2023 End: 07-23-2023 ambulatory TERESE AGUILA Not Available Start: 07-23-2023 End: 07-23-2023 flow sheet Terese REYES Work Phone: [facility] Comment on above: Low blood pressure r eading; Dizziness; Feeling faint; Third trimester Start: 07-21-2023 End: 07-21-2023 ambulatory YULISSA JAIME Facility:[facility] Start: 07-15-2023 End: 07-15-2023 ambulatory TERESE AGUILA Not Available Start: 07-01-2023 End: 07-01-2023 ambulatory IVAN ABAD Not Available Start: 06-18-2023 End: 06-18-2023 ambulatory TERESE AGUILA Not Available Start: 05-20-2023 End: 05-20-2023 ambulatory IVAN POLLO Not Available Start: 10-10-2022 Telephone encounter Leo Atkinson [facility] [place] Comment on above: 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 Start: 10-09-2022 ambulatory Yulissa WOOD Work Phone: Audiology Start: 09-24-2022 End: 09-24-2022 ambulatory RIMMA STERLING Facility:[facility] Start: 09-24-2022 End: 09-24-2022 Patient encounter procedure Rimma Sterling PA-C Work Phone: Otolaryngology Comment on above: Cochlear implant in place (Primary Dx); Sensorineural hearing loss, asymmetrical; Sensorineural hearing loss, bilateral Start: 07-29-2022 End: 07-30-[address] ARIEL RAJAN Facility:[facility] Start: 07-18-2022 End: 07-18-[address] ROSA CAMPOS Facility:[facility] Start: 07-17-2022 Encounter for preprocedural laboratory examination DR ROSA CAMPOS [facility] Start: 07-16-2022 End: 07-17-[address] ROSA CAMPOS Facility:[facility] Start: 07-16-2022 End: 07-17-2022 Encounter for preprocedural laboratory examination DR ROSA CAMPOS Facility:[facility] Start: 07-02-2022 End: 07-03-[address] ROSA CAMPOS Facility:[facility] Start: 06-18-2022 End: 06-19-[address] ROSA CAMPOS Facility:[facility] Start: 11-27-2021 End: 11-27-[address] ROSA CAMPOS Facility:[facility] Start: 11-24-2021 End: 11-24-2021 ambulatory Megan Oconnor Other [facility] Other Start: 11-24-2021 Office outpatient vi sit [...] PPSV23 if available, else PCV20) [facility] Start: 04-22-2028 Screening for malign ant neoplasm of cervix [facility] Start: 04-26-2024 End: 04-26-2024 Patient encounter procedure 04/26/2024 9:00 AM EST Office Visit [facility] [address] [place] [address] Ivan Abad, DO [address] [place], [place] [id number] [facility] Start: 08-13-2023 End: 08-13-2023 Patient encounter procedure 08/13/2023 11:20 AM EST Routine [facility] [address] [place] [address] Ivan Abad, DO [address] [place] [address] [facility] Start: 07-30-2023 End: 07-30-2024 US biophysical profile w non stress test US biophysical profile w non stress test Imaging Routine Small for gestational age (SGA) Expected: 07/30/2023 (Approximate), Expires: 07/30/2024 [facility] Work Phone: Comment on above: Expected: 07/30/2023 (Approximate), Expires: 07/30/2024 Start: 07-30-2023 End: 07-30-2023 Patient encounter procedure 07/30/2023 9:20 AM EST Routine [facility] [address] [place] [id number] Ivan Abad, DO [address] [place] [address] [facility] Start: 07-23-2023 End: 07-23-2023 Professional / ancillary services management 07/23/2023 3:00 PM EST Ancillary Procedure [facility] [address] [place] [id number] [facility] Start: 02-20-2023 Influenza vaccination C [facility] Start: 06-22-2022 DEPRESSION ASSESSMENT DEPRESSION ASS ESSMENT [facility] Start: 10-20-2021 COVID-19 VACCINE (3 - Booster for Pfizer series) COVID-19 VACCINE (3 - Booster for Pfizer series) [facility] Start: 2019 Mammography MAMMOGRAM [facility] Start: 2019 Screening for malign ant neoplasm of breast Mammogram [facility] Start: 11-17-2009 HPV TESTING HPV TESTING [facility] Start: 11-17-2000 PAP TESTING PAP TESTING [facility] Start: 11-17-1998 Urine microalbumin profile DTAP,TDAP,TD (1 - Tdap) [facility] Start: 11-17-1997 HEPATITIS C SCREENING HEPATITIS C SC REENING [facility] Start: 11-17-1997 HIV SCREENING [facility] SCREENING [facility] Start: 1980 HEPATITIS B (1 of 3 - 3-dose series) HEPATITIS B (1 of 3 - 3-dose series) [facility] Immunizations Immunization Date Immunization Notes Care Provider Agustin bernabe 03-22-2020 influenza virus vacc ine, unspecified formulation Terese REYES Work Phone: [facility] 08-13-2017 pneumococcal polysaccharide vaccine, 23 valent Rimma Sterling PA-C Work Phone: [facility] 08-10-2014 pneumococcal conjuga te vaccine, 13 valent Rimma Sterling PA-C Work Phone: [facility] Payers Date Payer Category Payer Unknown [id number] 2022 Unknown [id number] 1980 Unknown [id number] 2.16.84 [id number] 1979 Unknown [id number] 2.16.84 [id number] 1979 Unknown [id number] 2.16.84 [id number] 1979 Unknown [id number] 2.16.84 0.1.070299.3.579.2.593 1979 Unknown [id number] 2.16.84 0.1.207901.3.579.2.593 1979 Unknown [id number] 2.16.84 0.1.627611.3.579.2.593 1979 Unknown [id number] 2.16.84 0.1.811562.3.579.2.593 1979 Unknown [id number] 2.16.84 0.1.625460.3.579.2.1259 1979 Unknown [id number] 2.16.84 0.1.526512.3.579.2.1258 1979 Unknown [id number] 2.16.84 0.1.575647.3.579.2.1258 1979 Unknown [id number] 2.16.84 0.1.434306.3.579.2.1258 1979 Unknown [id number] 2.16.84 0.1.568667.3.579.2.1258 1979 Unknown [id number] 2.16.84 0.1.887137.3.579.2.1258 1979 Unknown [id number] 2.16.840 .1.947901.3.579.2.1258 1979 Unknown [id number] 2.16.840 .[id number] 1960 [facility] [id number] Unknown [id number] 2.16.84 [id number] Social History Date Type Detail Facility Start: 03-16-2023 Sex Assigned At [facility] Other Start: 09-24-2022 End: 03-16-2023 Tobacco smoking status DCIS Never smoked tobacco [facility] Start: 09-24-2022 End: 03-16-2023 Tobacco use and exposure Smokeless tobacco non-user [facility] Start: 09-24-2022 Alcohol intake Current non-drinker of alcohol (finding) [facility] Start: 1980 Sex Assigned At Female [facility] Start: 07-23-2023 End: 07-30-2023 Alcohol intake Ex-drinker (finding) [facility] Start: 03-16-2023 History of Social function [facility] Start: 04-22-2023 Alcohol Comment occasional alcohol use, Caffeine intake: none [facility] Start: 12-25-2022 [facility] Start: 01-21-2023 Gender identity Identifies as female gender (finding) [facility] Start: 01-21-2023 Sexual orientation Heterosexual (finding) [facility] Medical Equipment Procedure Code Equipment Code Equipment Original Text Equipment Identifier Dates [id number]-Kind Implant - [id number] Start: 09-02-2017 Comment on above: Description: NUCLEUS SOUND PROCESSORS Goals Date Patient Goal Desired Activity /State Personal health goal Clinical Notes 11-24-2021 to 07-30-2023 Ivan Abad DO - 07/30/2023 9:20 AM ERIC Guan - 07/23/2023 2:20 PM ESTTelephone Encounter - Leo Atkinson - 10/10/2022 3:51 PM EDTISRAEL Champion - 10/09/2022 12:57 PM EDT Note Date [...] Ivan Abad DO documented in this encounter [facility] 07-23-2023 History of Presen t illness [...] of: ERIC Smallwood documented in this encounter [facility] 07-21-2023 Note HNO ID: [id number] Author: YULISSA JAIME AUD Service: ? 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 Left ear: External Processor: Cochlear [employer] [id number] (Nucleus 8; upgraded around January 2023) Processor SN: [id number] Processor ([id number]) SN: [id number] Magnet strength: 2 Internal Device: Cochlear CI532 Profile with Slim Modiolar Electrode Array Internal Device SN: [id number] Inactive electrodes: None Surgery Date: 09/02/2017 Initial [...] 6; Sensitivity: 12) before programming. See the Profilepasser Audiogram for obtained thresholds. Speech perception testing was completed at 60 clinical transformation specialist using recorded stimuli in the sound field at 0 degrees azimuth. NOTE: The contralateral ear was not plugged and muffed during testing. The following testing and results were obtained: Drfgplctj-Qtetfhd-Ppwghordp Words (CNC) Test Condition List # Phonemes [...] sound processor during all waking hours. * Leeanne (more content not included)... [facility] 10-10-2022 Miscellaneous Notes Die Cutter Apprentice: Katerina Mina Patient: Hasmukh Alfaro 1980 Clinic: [facility] Welding Machine Operator Helper Gas: Dr. Yulissa Jaime Appointment Length: 45 Minutes What are you looking to accomplish?: I d like to learn more about the Nucleus 8 and the process of upgrading Recipient's Stated Reason for Upgrading Clinic Request - Welding Machine Operator Helper [employer] recommended it [employer] - Processor more [...] steps are Acquisition Methods Recipient will receive Bgg-qf-Miaelc cost estimate once order placed Next Steps If recipient decides to move forward with pursuing a Nucleus 8 upgrade and provides us with the necessary order information, we will start an order on their behalf. You will hear from Cochlear s Medical Science Liaison team, via email/DocuSign to gain your approval or regarding an LMN to allow this patient to move forward in the process. Following completion of the upgrade process, I will invite the recipient to schedule time for a complimentary onboarding with our [employer] team so they can begin to maximize the use of their new Cochlear equipment. documented in this encounter [facility] 10-09-2022 Note HNO ID: [id number] Author: ISRAEL Champion Service: ? Author Type: Welding Machine Operator Helper [employer] Type: Progress Notes Filed: 10/09/2022 12:58 PM [...] any questions. Upgrade Consultation Clinic Patient Report Die Cutter Apprentice: Katerina Leopoldo Patient: Hasmukh Alfaro 1980 Clinic: [facility] Welding Machine Operator Helper Gas: Dr. Yulissa Jaime Appointment Length: 45 Minutes What are you looking to accomplish?: I?d like to learn more about the Nucleus 8 and the process of upgrading Recipient's Stated Reason for Upgrading ? Clinic Request - Welding Machine Operator Helper Gas recommended it ? [employer] - Processor [...] are Acquisition Methods ? Recipient will receive Bqo-jy-Lrtjvx cost estimate once order placed Next Steps ? If recipient decides to move forward with pursuing a Nucleus 8 upgrade and provides us with the necessary order information, we will start an order on their behalf. You will hear from Cochle[employer]?s Medical Science Liaison team, via email/DocuSign to gain your approval or regarding an LMN to allow this patient to move forward in the process. Following completion of the upgrade process, I will invite the recipient to schedule time for a complimentary onboarding with our [employer] team so they can begin to maximize the use of their new Cochlear equipment. Warm Regards, Katerina Mina Eloisa Champion, [facility]/A Clinical Welding Machine Operator Helper [employer] [facility] 10-09-2022 History of Presen t illness [...] any questions. Upgrade Consultation Clinic Patient Report Die Cutter Apprentice: Katerina Mina Patient: Hasmukh Alfaro 1980 Clinic: [facility] Welding Machine Operator Helper Gas: Dr. Yulissa Jaime Appointment Length: 45 Minutes What are you looking to accomplish?: I d like to learn more about the Nucleus 8 and the process of upgrading Recipient's Stated Reason for Upgrading Clinic Request - Welding Machine Operator Helper Gas recommended it [employer] - Processor more [...] steps are Acquisition Methods Recipient will receive Uam-pd-Ljmmxy cost estimate once order placed Next Steps If recipient decides to move forward with pursuing a Nucleus 8 upgrade and provides us with the necessary order information, we will start an order on their behalf. You will hear from Cochlear s Medical Science Liaison team, via email/DocuSign to gain your approval or regarding an LMN to allow this patient to move forward in the process. Following completion of the upgrade process, I will invite the recipient to schedule time for a complimentary onboarding with our [employer] team so they can begin to maximize the use of their new Cochlear equipment. Warm Regards, Katerina Eloisa Cole, [facility]/A Clinical Welding Machine Operator [employer] documented in this encounter [facility] 09-24-2022 Note HNO ID: [id number] Author: Rimma Sterling PA-C Service: ? Author Type: Physician Animal Care Giver Type: Progress Notes Filed: 09/24/2022 9:53 AM Note Text: History of Present Illness Ms. AMY ALFARO is a 41 year old year old female presenting for: referred by SELF And is a patient of DO Abel Card DO [address] [place] [address] Communication will be via the electronic record [...] (FLONASE) 50 mcg/actuation nasal spray Use 1 Cebolla in each nostril as needed. multivitamin (DAILY [...] Medical Decision Making Level: 2 - Straightforward [facility] 09-24-2022 Instructions Rimma Sterling PA-C - 09/24/2022 9:[address] Audra Umanzor use his name on paperwork documented in this encounter [facility] 09-24-2022 History of Presen t illness Narrative History of Present Illness Ms. AMY ALFARO is a 41 year old year old female presenting for: referred by SELF And is a patient of DO Abel Card DO [address] [place] [address] Communication will be via the electronic record [...] (FLONASE) 50 mcg/actuation nasal spray Use 1 Cebolla in each nostril as needed. multivitamin (DAILY [...] Straightforward documented in this encounter [facility] 07-18-2022 Note EXAMINATION: US PELV IS HISTORY: Surgical procedure COMPARISON: Ultrasound less than 14 weeks 07/16/2022 TECHNIQUE: Transabdominal and transvaginal sonographic examination. FINDINGS: Final images show an empty endometrial cavity. IMPRESSION: 1. No appreciable products of conception within endometrial cavity following dilation and curettage. Electronically authenticated by: ALEXI BRANCH Date: 2022-07-18 08:21 [facility] 11-24-2021 Evaluation note Encounter Date Diagnosis [...] Fungal rash of trunk (ICD-10 - B36.9) [facility] Other Evaluation note* Diagnosis Cochlear implant in place- Primary Other postprocedural status Sensorineural hearing loss, asymmetrical Sensorineural hearing loss, bilateral [facility] Low blood pressure reading Nonspecific low blood pressure reading Dizziness Dizziness and giddiness Feeling faint Third trimester state, incidental [facility] Third trimester state, incidental Small for gestational age (SGA) [facility] N[facility] - Reported* Type Description Date Medical History bilateral hearing loss Surgical History cochlear implant Surgical History D&C [facility] Other Summary Purpose Family History No Family History Records FoundNo Family History Records FoundNo Family History Records Found Advance Directives No Advanced Directives Records FoundNo Advanced Directives Records FoundNo Advanced Directives Records Found Additional Source Comments REASON FOR VISIT (unrecogniz ed section and content) Reason Comments Hearing Loss New. Self referral. CI LT side. Last audio 03/18/22. Denies otalgia and otorrhea. Reason Comments Rubber Goods Inspector - Other Reason Comments Dizziness Hypotension Reason Comments Routine Visit INFORMATION SOURCE (unrecogn ized section and content) DATE CREATED AUTHOR 07/30/2022 [facility] DATE CREATED AUTHOR AUTHOR'S ORGANIZ ATION 07/22/2023 [facility] DATE CREATED AUTHOR AUTHOR'S ORGANIZ ATION 08/21/2023 [facility] EPIC Source Comments (unrecognize d section and content) In the event this informatio n is protected by the Federal Confidentiality of Alcohol and Drug Abuse Patient Records regulations: The Federal rules restrict any use of the information to criminally investigate or prosecute any alcohol or drug abuse patient.[facility] the event this information is protected by the Federal Confidentiality of Alcohol and Drug Abuse Patient Records regulations: The Federal rules restrict any use of the information to criminally investigate or prosecute any alcohol or drug abuse patient.[facility] the event this information is protected by the Federal Confidentiality of Alcohol and Drug Abuse Patient Records regulations: The Federal rules restrict any use of the information to criminally investigate or prosecute any alcohol or drug abuse patient.[facility] Care Teams (unrecognized sec tion and content) Evp Relationship Specialty Start Date End Date Abel Sun PCP - General Family Medicine 03/15/14 Evp Relationship Specialty Start Date End Date Abel Sun PCP - General Family Medicine 03/15/14 Evp Relationship Specialty Start Date End Date Abel Sun PCP - General Family Medicine 03/15/14 Evp Relationship Specialty Start Date End Date Ariel Rajan MD [address] [place] [id number] [phone] PCP - General 02/16/23 Evp Relationship Specialty Start Date End Date Ariel Rajan MD [address] [place] [id number] [phone] PCP - General 02/16/23 FOR RECORDS PERTAINING [...] BE BASED ON THE PRIMARY CLINICAL RECORDS. [facility] Differential [facility]. provides no warranty or guarantee of the accuracy or completeness of information in this document.
--- OUTSIDE RECORDS SUMMARY | 2023-08-25 08:09 | XMS_ITS | CCD ---
Author Name Unknown Address [email or web address] [place] [address] Organization [facility] Care Team Providers Care Laster Hand Name Role Phone Megan Oconnor Unavailable ANDRES, [...] Unavailab Ariel Rich MD Primary Care Provider [phone] TERESE AGUILA Attending Unavailable IVAN ABAD Attending Unavailable TERESE AGUILA Attending Unavailable TERESE AGUILA Attending Unavailable IVAN ABAD Attending Unavailable IVAN ABAD Attending Unavailable IVAN ABAD Attending Unavailable IVAN ABAD Attending Unavailable Allergies Allergy Classification Reported Allergen(s) Allergy Type Date of Onset Reaction(s) Facility (4 sources) Seasonal allergy; Translations: [SEASONAL ALLERGIES] Allergy to substance 4 Cough [facility] (4 sources) Octacosanol Drug Allergy 4 Cough [facility] (4 sources) Other Propensity to adverse reactions 3 Unknown [facility] Medications Current Medications Medication Drug Class(es) Dates Sig (Normalized) Sig (Original) [id number] 200 actuat albuterol 0.09 mg/actuat metered dose [...] on above: Take 1 capsule by mo [facility] as needed. fluticasone propionate 0.05 mg/actuat metered dose nasal spray (3 sources) Corticosteroid fluticasone (FLONASE) 50 mcg/actuation nasal spray Indications: Bilateral sensorineural hearing loss , Autoimmune disorder of inner ear Use 1 [place] in each nostril as needed. 0 Active Comment on above: Use 1 [place] in each nostril as needed. LOW-DOSE ASPIRIN PO (2 sources) Start: 04-02-2023 End: 07-23-2023 LOW-DOSE ASPIRIN PO multivitamin (DAILY MULTIPLE) tablet (3 sources) take 1 tablet by mouth once daily multivitamin (DAILY MULTIPLE) tablet Take 1 tablet by mouth once daily. 0 Active Comment on above: Take 1 tablet by [facility] once daily. predniSONE 10 mg oral [...] low weight; and growth retardation (2 sources) Igyvm-xlq-nilde baby; Translations: [[place] small for gestational age, unspecified weight] 07-30-2023 [...] UA Negative Negative - 4(70) +++ mg/dL [facility] Blood, UA Positive Negative - 50 Bobby/mcL [facility] Comment on above: trace-intact Clarity, UA Clear [facility] re Color, UA Yellow [facility] Glucose, UA Negative Negative - 1999(110) ++++ mg/dL [facility] Interpretation and review of laboratory results Abnormal [facility] Ketones, UA Negative Negative - 160(16) ++++ mg/dL [facility] Leukocytes, UA Positive Negative - 500+++ Suzette/mcL [facility] Comment on above: small Nitrite, UA Negative Negative - Positive [facility] pH, UA 6.0 5 - 9 [facility], [facility]A Negative Negative - 1999(20) ++++ mg/dL [facility] Spec Grav, UA 1.010 1 - 1.03 [facility] Urobilinogen, UA 0.2 0.2 - 12 mg/dL [facility]inal[facility] macro (dipstick) panel (U)on 07-23-2023 Bilirubin, UA Negative Negative - 4(70) +++ mg/dL [facility] Blood, UA Negative Negative - 50 Bobby/mcL [facility] Clarity, UA Clear [facility] Color, UA Yellow [facility] Glucose, UA Negative Negative - 1999(110) ++++ mg/dL [facility] Interpretation and review of laboratory results Abnormal [facility] Ketones, UA Negative Negative - 160(16) ++++ mg/dL [facility] Leukocytes, UA Positive Negative - 500+++ Suzette/mcL [facility] Comment on above: small Nitrite, UA Negative Negative - Positive [facility] pH, UA 7.0 5 - 9 [facility] Protein, UA Negative Negative - 1999(20) ++++ mg/dL [facility] Spec Grav, UA 1.015 1 - 1.03 [facility] Urobilinogen, UA 0.2 0.2 - 12 mg/dL [facility] CNOVon 07-21-2023 CNOV Office Visit (OTAUCR ) AMY ALFARO ([id number]) 1980 F Date Time Provider Department 07/21/23 7:30 AM YULISSA JAIME During your visit today, we recorded the following information about you: Yulissa Jaime AUD 07/21/2023 8:47 AM Signed [facility] [place] [facility] [employer]PL[employer] ADULT PROGRAMMING Name: Amy ALFARO [facility]#: [id number] Date of Service: July 21, 2023 Date of : 1980 Age: [age] year old COCHLEAR IMPLANT INFORMATION (see below for all device details) Updated: July 21, 2023 Right ear: Phonak Audeo RITE Hearing Aid that was fit at an outside facility (November 2021) and is being managed by that facility. 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 NOTE: The contralateral ear was not plugged and muffed during testing. The following testing and results were obtained: Sbnosputo-Eitcofx-Ois sonant Words (CNC) Test Condition List # [...] etc. Shoul (more content not included)... Normal [facility] Ada 10-10-2022 CNPN Telephone (HNQ) DOMINICAMY Shravan ([id number]) 1980 F Date Time Provider Department 10/10/22 CHINALEO MARIIA During your visit today, we recorded the following information about you: Leo China 10/10/2022 3:52 PM Signed [employer] Officer: Katerina Mina Patient: Hasmukh Alfaro 1980 Clinic: [facility] Inspector Tubes: Dr. Yulissa Jaime Appointment Length: 45 Minutes What are you looking to accomplish?: I?d like to learn more about the Nucleus 8 and the process of upgrading Recipient's Stated Reason for Upgrading ? Clinic Request - Inspector Tubes recommended it ? Useful Life - Processor [...] are Acquisition Methods ? Recipient will receive Hic-oc-Oyhwnr cost estimate once order placed Next Steps ? If recipient decides to move forward with pursuing a Nucleus 8 upgrade and provides us with the necessary order information, we will start an order on their behalf. 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 - fluticasone (FLONASE) 50 mcg/actuation nasal spray Use 1 [place] in each nostril as needed. - multivitamin [...] by LEO ATKINSON [facility]10/[facility] (OTOLCR ) ALFAROAMY MAYNARD Shravan ([id number]) 1980 F Date Time Provider Department 09/24/22 9:30 AM RIMMA STERLING OTOLJAMES During your visit today, we recorded the following information about you: Rimma Sterling PA-C 09/24/2022 9:53 AM Signed History of Present Illness Ms. AMY ALFARO is a 41 year old year old female presenting for: referred by SELF And is a patient of DO Abel Card DO [address] [id number] Communication will be via the electronic record [...] (FLONASE) 50 mcg/actuation nasal spray Use 1 [place] in each nostril as needed. multivitamin (DAILY [...] ALLERGIES 1 (more content not included)... Normal [facility] CBC AUTO DIFFon 07-29-2022 BASO # 0.0 103/ul Normal 0.0-0.1 [facility] Comment on above: Performed By: #### C BC #### [facility] [address] [place] [address] Dr. Jani Haywood Basophils/100 WBC (Bld) 0.6 % Normal 0.2-2.0 [facility] Comment on above: Performed By: #### C BC #### [facility] [address] [place] [address] Dr. Jani Haywood EO # 0.1 103/ul Normal 0.0-0.7 [facility] Comment on above: Performed By: #### C BC #### [facility] [address] [place] [address] Dr. Jani Haywood Eosinophils/100 WBC (Bld) 2.5 % Normal 0.9-7.0 [facility] Comment on above: Performed By: #### C BC #### [facility] [address] [place] [address] Dr. Jani Haywood Erythrocyte distribution width (RBC) [Ratio] 13.7 % Normal 11.0-15.0 [facility] Comment on above: Performed By: #### C BC #### [facility] [address] [place] [address] Dr. Jani Haywood Hematocrit (Bld) [Volume fraction] 40.3 % Normal 36.0-48.0 [facility] Comment on above: Performed By: #### C BC #### [facility] [address] [place] [address] Dr. Jani Haywood Hemoglobin (Bld) [Mass/Vol] 12.7 g/dL Normal 12.0-16.0 [facility] Comment on above: Performed By: #### C BC #### [facility] [address] [place] [address] Dr. Jani Haywood IG # 0.01 10e3/ul Normal 0.00-0.03 [facility] Comment on above: Performed By: #### C BC #### [facility] [address] [place] [address] Dr. Jani Haywood IG % 0.2 % Normal 0.0-0.5 [facility] Comment on above: Performed By: #### C BC #### [facility] [address] [place] [address] Dr. Jani Haywood LYMPH # 1.8 103/ul Normal 1.2-3.8 [facility] Comment on above: Performed By: #### C BC #### [facility] [address] [place] [address] Dr. Jani Haywood Lymphocytes/100 WBC (Bld) 35.2 % Normal 20.5-60.0 [facility] Comment on above: Performed By: #### C BC #### [facility] [address] [place] [address] Dr. Jani Haywood MANUAL DIFF REQ NO Normal [facility] Comment on above: Performed By: #### C BC #### [facility] [address] [place] [address] Dr. Jani Haywood MCH (RBC) [Entitic mass] 30.5 pg Normal 26.7-34.0 [facility] Comment on above: Performed By: #### C BC #### [facility] [address] [place] [address] Dr. Jani Haywood MCHC (RBC) [Mass/Vol] 31.5 g/dL Normal 29.9-35.2 [facility] Comment on above: Performed By: #### C BC #### [facility] [address] [place] [address] Dr. Jani Haywood MCV (RBC) [Entitic vol] 96.9 fL Normal 81.0-99.0 [facility] Comment on above: Performed By: #### C BC #### [facility] [address] [place] [address] Dr. Jani Haywood MONO # 0.4 103/ul Normal 0.3-0.8 [facility] Comment on above: Performed By: #### C BC #### [facility] [address] [place] [address] Dr. Jani Haywood Monocytes/100 WBC (Bld) 8.1 % Normal 1.7-12.0 [facility] Comment on above: Performed By: #### C BC #### [facility] [address] [place] [address] Dr. Jani Haywood NEUT # 2.8 103/ul Normal 1.4-6.5 [facility] Comment on above: Performed By: #### C BC #### [facility] [address] [place] [address] Dr. Jani Haywood Neutrophils/100 WBC (Bld) 53.4 % Normal 43.0-75.0 [facility] Comment on above: Performed By: #### C BC #### [facility] [address] [place] [address] Dr. Jani Haywood Platelet mean volume (Bld) [Entitic vol] 10.0 fL Normal 9.5-13.5 [facility] Comment on above: Performed By: #### C BC #### [facility] [address] [place] [address] Dr. Jani Haywood PLT 271 103/ul Normal 150-450 [facility] Comment on above: Performed By: #### C BC #### [facility] [address] [place] [address] Dr. Jani Haywood RBC 4.16 106/ul Critically low 4.20-5.40 [facility] Comment on above: Performed By: #### C BC #### [facility] [address] [place] [address] Dr. Jani Haywood WBC 5.2 103/ul Normal 4.0-11.0 [facility] Comment on above: Performed By: #### C BC #### [facility] [address] [place] [address] Dr. Jani Haywood IRONon 07-29-2022 Iron [Mass/Vol] 64.0 ug/dL Normal 50.0-170.0 [facility] Comment on above: Performed By: #### A 1C #### [facility] [address] [place] [address] Dr. Jani Haywood PROF 14(COMP METB)on 023 Albumin [Mass/Vol] 3.5 g/dL Normal 3.4-5.0 [facility] Comment on above: Performed By: #### C MP #### [facility] [address] [place] [address] Dr. Jani Haywood Albumin/Globulin [Mass ratio] 0.9 {ratio} Normal [facility] Comment on above: Performed By: #### C MP #### [facility] [address] [address] [address] Jani Haywood ALP [Catalytic activity/Vol] 73 U/L Normal 46-116 [facility] Comment on above: Performed By: #### C MP #### [facility] [address] [address] [address] Jani Haywood ALT [Catalytic activity/Vol] 12 U/L Critically low 14-59 [facility] Comment on above: Performed By: #### C MP #### [facility] [address] [address] [address] Jani Haywood Anion gap [Moles/Vol] 11.0 mmol/L Normal [facility] Comment on above: Performed By: #### C MP #### [facility] [address] [address] [address] Jani Haywood AST [Catalytic activity/Vol] 13 U/L Critically low 15-37 [facility] Comment on above: Performed By: #### C MP #### [facility] [address] [address] [address] Jani Haywood Bilirubin [Mass/Vol] 0.5 mg/dL Normal 0.2-1.0 [facility] Comment on above: Performed By: #### C MP #### [facility] [address] [address] [address] Jani Haywood Calcium [Mass/Vol] 8.6 mg/dL Normal 8.5-10.1 [facility] Comment on above: Performed By: #### C MP #### [facility] [address] [address] [address] Jani Haywood Chloride [Moles/Vol] 105 mmol/L Normal 98-107 [facility] Comment on above: Performed By: #### C MP #### [facility] [address] [address] [address] Jani Haywood CO2 [Moles/Vol] 28.8 mmol/L Normal 21.0-32.0 [facility] Comment on above: Performed By: #### C MP #### [facility] [address] [address] [address] Jani Haywood Creatinine [Mass/Vol] 0.87 mg/dL Normal 0.55-1.02 [facility] Comment on above: Performed By: #### C MP #### [facility] [address] [address] [address] Jani Haywood EGFR-AF SAO TOMEAN >60 Normal >=60 [facility] Comment on above: Performed By: #### C MP #### [facility] [address] [address] [address] Jani Haywood EGFR-NON AF SAO TOMEAN >60 Normal >=60 [facility] Comment on above: Performed By: #### C MP #### [facility] [address] [address] [address] Jani Haywood Globulin (S) [Mass/Vol] 3.7 g/dL Normal [facility] Comment on above: Performed By: #### C MP #### [facility] [address] [address] [address] Jani Haywood Glucose [Mass/Vol] 95 mg/dL Normal 74-106 [facility] Comment on above: Performed By: #### C MP #### [facility] [address] [address] [address] Jani Haywood Potassium [Moles/Vol] 3.8 mmol/L Normal 3.5-5.1 [facility] Comment on above: Performed By: #### C MP #### [facility] [address] [address] [address] Jani Haywood Protein [Mass/Vol] 7.2 g/dL Normal 6.4-8.2 [facility] Comment on above: Performed By: #### C MP #### [facility] [address] [address] [address] Jani Haywood Sodium [Moles/Vol] 141 mmol/L Normal 136-145 [facility] Comment on above: Performed By: #### C MP #### [facility] [address] [address] [address] Jani Haywood Urea nitrogen [Mass/Vol] 12.0 mg/dL Normal 7.0-18.0 [facility] Comment on above: Performed By: #### C MP #### [facility] [address] [address] [address] Jani Haywood Urea nitrogen/Creatinine [Mass ratio] 13.8 mg/mg Normal [facility] Comment on above: Performed By: #### C MP #### [facility] [address] [address] [address] Jani Haywood Covid-19 PCR ([facility])on 06-23 SARS-CoV-2 (COVID-19) RNA CAROLE+probe Ql (Unsp spec) Not detected Normal NOT DETECTED [facility] Comment on above: Result Comment: This test is not yet approved or cleared by the [place] FDA. When there are no FDA-approved or cleared tests available, and other criteria are met, FDA can make tests available under an emergency access mechanism called an Emergency Use Authorization (EUA). The EUA for this test is supported by the Location And Measurement Technician of Health and Human Service's (HHS's) [...] SARS-CoV-2. Performed By: #### C VDTB #### [facility] [address] [address] [address] Jani Haywood US PREG <14 WKSon [...] was notified of these findings by the buffet manager at time of imaging. Electronically authenticated by: ALEXI BRANCH Date: 2022-07-16 13:36 Normal [facility] HEP B SURFACE ANTIGEN SCREEN on 07-03-2022 HBsAg Screen Negative Normal Negative [facility] Comment on above: Performed By: #### A 1C #### [facility] [address] [place] [address] Dr. Jani Haywood HEPATITIS C VIRUS AB W/ REFL EX QUANTon 07-03-2022 HCV AB <0.1 Normal 0.0-0.9 [facility] Comment on above: Performed By: #### H CVPCRR #### [facility] [address] [place] [address] Dr. Jani Haywood Interpretation: Comment Normal [facility] Comment on above: Result Comment: Nega tive Not infected with HCV, unless recent infection is suspected or other evidence exists to indicate HCV infection. Performed By: #### H CVPCRR #### [facility] [address] [place] [address] Dr. Jani Haywood HIV 1 AND 2 WITH REFLEXon HIV Screen 4th Generation wRfx Non-Reactive Normal Non Reactive [facility] Comment on above: Result Comment: HIV Negative HIV-1/HIV-2 antibodies and HIV-1 p24 antigen were NOT detected. There is no laboratory evidence of HIV infection. Performed By: #### H IV12 #### [facility] [address] [place] [address] Dr. Jani Haywood RPR QUANTon 07-03-2022 Rapid Plasma Reagin, Quant Non-Reactive Normal NonRea<1:1 [facility] Comment on above: Result Comment: Plea se Note: This test does not meet current guidelines for screening and diagnosis of syphilis. This test is intended for following treatment response in patients being treated for syphilis infection. To screen for syphilis infection, a reflex cascade that includes both RPR and a treponema-specific assay should be utilized, such as Treponema pallidum (Syphilis) Screening [place] (073061) or Rapid Plasma Reagin (RPR) Test With Reflex to Quantitative RPR and Confirmatory Treponema pallidum Antibodies (764371). Performed By: #### R PRQ #### [facility] [address] [place] [address] Dr. Jani Haywood RUBELLA AB IGGon 07-03-2022 Rubella Antibodies, IgG 2.92 index Normal Immune >0.99 [facility] Comment on above: Result Comment: Non- immune <0.90 Equivocal 0.90 - 0.99 Immune >0.99 Performed By: #### A 1C #### [facility] [address] [place] [address] Dr. Jani Haywood CBC AUTO DIFFon 07-02-2022 BASO # 0.1 103/ul Normal 0.0-0.1 [facility] Comment on above: Performed By: #### C BC #### [facility] [address] [place] [address] Dr. Jani Haywood Basophils/100 WBC (Bld) 0.7 % Normal 0.2-2.0 [facility] Comment on above: Performed By: #### C BC #### [facility] [address] [place] [address] Dr. Jani Haywood EO # 0.1 103/ul Normal 0.0-0.7 [facility] Comment on above: Performed By: #### C BC #### [facility] [address] [place] [address] Dr. Jani Haywood Eosinophils/100 WBC (Bld) 1.2 % Normal 0.9-7.0 [facility] Comment on above: Performed By: #### C BC #### [facility] [address] [place] [address] Dr. Jani Haywood Erythrocyte distribution width (RBC) [Ratio] 13.7 % Normal 11.0-15.0 [facility] Comment on above: Performed By: #### C BC #### [facility] [address] [place] [address] Dr. Jani Haywood Hematocrit (Bld) [Volume fraction] 37.9 % Normal 36.0-48.0 [facility] Comment on above: Performed By: #### C BC #### [facility] [address] [place] [address] Dr. Jani Haywood Hemoglobin (Bld) [Mass/Vol] 12.6 g/dL Normal 12.0-16.0 [facility] Comment on above: Performed By: #### C BC #### [facility] [address] [place] [address] Dr. Jani Haywood IG # 0.02 10e3/ul Normal 0.00-0.03 [facility] Comment on above: Performed By: #### C BC #### [facility] [address] [place] [address] Dr. Jani Haywood IG % 0.3 % Normal 0.0-0.5 [facility] Comment on above: Performed By: #### C BC #### [facility] [address] [place] [address] Dr. Jani Haywood LYMPH # 1.6 103/ul Normal 1.2-3.8 [facility] Comment on above: Performed By: #### C BC #### [facility] [address] [place] [address] Dr. Jani Haywood Lymphocytes/100 WBC (Bld) 21.5 % Normal 20.5-60.0 [facility] Comment on above: Performed By: #### C BC #### [facility] [address] [place] [address] Dr. Jani Haywood MANUAL DIFF REQ NO Normal [facility] Comment on above: Performed By: #### C BC #### [facility] [address] [place] [address] Dr. Jani Haywood MCH (RBC) [Entitic mass] 30.4 pg Normal 26.7-34.0 [facility] Comment on above: Performed By: #### C BC #### [facility] [address] [place] [address] Dr. Jani Haywood MCHC (RBC) [Mass/Vol] 33.2 g/dL Normal 29.9-35.2 [facility] Comment on above: Performed By: #### C BC #### [facility] [address] [place] [address] Dr. Jani Haywood MCV (RBC) [Entitic vol] 91.3 fL Normal 81.0-99.0 [facility] Comment on above: Performed By: #### C BC #### [facility] [address] [place] [address] Dr. Jani Haywood MONO # 0.5 103/ul Normal 0.3-0.8 [facility] Comment on above: Performed By: #### C BC #### [facility] [address] [place] [address] Dr. Jani Haywood Monocytes/100 WBC (Bld) 6.6 % Normal 1.7-12.0 [facility] Comment on above: Performed By: #### C BC #### [facility] [address] [place] [address] Dr. Jani Haywood NEUT # 5.1 103/ul Normal 1.4-6.5 [facility] Comment on above: Performed By: #### C BC #### [facility] [address] [place] [address] Dr. Jani Haywood Neutrophils/100 WBC (Bld) 69.7 % Normal 43.0-75.0 [facility] Comment on above: Performed By: #### C BC #### [facility] [address] [place] [address] Dr. Jani Haywood Platelet mean volume (Bld) [Entitic vol] 10.2 fL Normal 9.5-13.5 [facility] Comment on above: Performed By: #### C BC #### [facility] [address] [place] [address] Dr. Jani Haywood PLT 281 103/ul Normal 150-450 [facility] Comment on above: Performed By: #### C BC #### [facility] [address] [address] [address] Jani Haywood RBC 4.15 106/ul Critically low 4.20-5.40 [facility] Comment on above: Performed By: #### C BC #### [facility] [address] [address] [address] Jani Haywood WBC 7.3 103/ul Normal 4.0-11.0 [facility] Comment on above: Performed By: #### C BC #### [facility] [address] [address] [address] Jani Haywood GLYCOHEMOGLOBIN A1Con 2022 ADA RECOMMENDATION SEE BELOW Normal [facility] Comment on above: Result Comment: ADA RECOMMENDED LIMIT 4.0 - 6.0 ADA THERAPEUTIC TARGET < 7.0 ACTION SUGGESTED > 7.0 Performed By: #### A 1C #### [facility] [address] [place] [address] Dr. Jani Haywood Glucose [Mass/Vol] 103 mg/dL Normal [facility] Comment on above: Performed By: #### A 1C #### [facility] [address] [place] [address] Dr. Jani Haywood HbA1c (Bld) [Mass fraction] 5.2 % Normal 4.5-6.2 [facility] Comment on above: Performed By: #### A 1C #### [facility] [address] [place] [address] Dr. Jain Haywood CRISTELA BOX TEST PT SEND OUTo n 07-02-2022 SENT TO REF LAB 07/02/2022 Normal [facility] Comment on above: Performed By: #### N BOX #### [facility] [address] [place] [address] Dr. Jani Haywood TYPE AND SCREENon 07-02-2022 TYPE AND SCREEN Negative Normal [facility] Comment on above: Performed By: #### A 1C #### [facility] [address] [place] [address] Dr. Jani Haywood US PREG TVon 06-18-2022 [...] by: RIMMA BATRES Date: 2022-06-18 16:09 Normal [facility] PAP ACOG PANEL 2: 30 to 65on 12-03-2021 . . Normal [facility] Comment on above: Result Comment: Perf ormed at: WB Performed By: #### [id number] #### [facility] [address] [place] [address] Dr. Jani Haywood Age Gdln ACOG Testing 30-65 Normal [facility] Comment on above: Performed By: #### [id number] #### [facility] [address] [place] [address] Dr. Jani Haywood DIAGNOSIS: Comment Normal [facility] Comment on above: Result Comment: NEGA TIVE FOR INTRAEPITHELIAL LESION OR MALIGNANCY. Performed at: WB Performed By: #### [id number] #### [facility] [address] [place] [address] Dr. Jani Haywood HPV Aptima Negative Normal Negative [facility] Comment on above: Result Comment: This nucleic acid amplification test detects fourteen high-risk HPV types (16,18,31,33,35,39,45,51,52,56,58,59,66,68) without differentiation. Performed at: =G Performed By: #### [id number] #### [facility] [address] [address] [address] Jani Haywood Methodology: Comment Normal [facility] Comment on above: Result Comment: This liquid based ThinPrep(R) pap test was screened with the use of an image guided system. Performed at: WB Performed By: #### [id number] #### [facility] [address] [place] [address] Dr. Jani Haywood Note: Comment [facility] Comment on above: Result Comment: The Pap smear is a screening test designed to aid in the detection of premalignant and malignant conditions of the uterine cervix. It is not a diagnostic procedure and should not be used as the sole means of detecting cervical cancer. Both false-positive and false-negative reports do occur. . Performed at: WB Performed By: #### [id number] #### [facility] [address] [address] [address] Jani Haywood Performed by: Comment Normal [facility] Comment on above: Result Comment: Nikki Schwab, Keyboard Operator (ASCP) Performed at: WB Performed By: #### [id number] #### [facility] [address] [place] [address] Dr. Jani Haywood Specimen adequacy: Comment Normal [facility] Comment on above: Result Comment: Sati sfactory for evaluation. Endocervical and/or squamous metaplastic cells (endocervical component) are present. Performed at: WB Performed By: #### [id number] #### [facility] [address] [place] [address] Dr. Jani Haywood Vital Signs Date Time Vital Sign Value Performing Clinician Facility 07-30-2023 09:32-0500 Body mass index (BMI) [Ratio] 25.88 kg/m2 [facility] Work Phone: [facility] 07-30-2023 09:32-0500 Body weight 66.28 kg Ivan Pollo [employer] Work Phone: [facility] 07-30-2023 09:32-0500 Diastolic blood pressure 60 mm[Hg] Ivan Pollo DO Work Phone: [facility] 07-30-2023 09:32-0500 Systolic blood pressure 100 mm[Hg] Ivan Pollo DO Work Phone: [facility] 07-23-2023 14:33-0500 Body mass index (BMI) [Ratio] 26.24 kg/m2 Terese REYES Work Phone: [facility] 07-23-2023 14:33-0500 Body weight 67.19 kg Terese REYES Work Phone: [facility] 07-23-2023 14:33-0500 Diastolic blood pressure 68 mm[Hg] Terese REYES Work Phone: [facility] 07-23-2023 14:33-0500 Systolic blood pressure 110 mm[Hg] Terese REYES Work Phone: [facility] 11-24-2021 14:10-0400 Body height 160.02 cm Megan Oconnor Other [facility] Other 11-24-2021 14:10-0400 Body mass index (BMI) [Ratio] 20.55 kg/m2 Megan Sorensenault Other [facility] Other 11-24-2021 14:10-0400 Body temperature 96.9 [degF] Megan Sorensenault Other [facility] Other 11-24-2021 14:10-0400 Body weight 52.62 kg Megan Oconnor Other [facility] Other 11-24-2021 14:10-0400 SaO2% (BldA) [Mass fraction] 97 % Megan Oconnor Other [facility] Other Encounters Encounter Date Encounter Type Care Provider Facility Start: 08-20-2023 End: 08-20-2023 ambulatory IVAN POLLO Not Available Start: 08-13-2023 End: 08-13-2023 ambulatory IVAN POLLO Not Available Start: 07-30-2023 End: 07-30-2023 ambulatory IVAN POLLO Not Available Start: 07-30-2023 End: 07-30-2023 flow sheet Ivan Pollo DO Work Phone: [facility] Comment on above: Third trimester preg luan; Small for gestational age (SGA) Start: 07-23-2023 End: 07-23-2023 ambulatory TERESE AGUILA Not Available Start: 07-23-2023 End: 07-23-2023 flow sheet Terese REYES Work Phone: [facility] Comment on above: Low blood pressure r eading; Dizziness; Feeling faint; Third trimester Start: 07-21-2023 End: 07-21-2023 ambulatory YULISSA JAIME Facility:[facility] Start: 07-15-2023 End: 07-15-2023 ambulatory TERESE AGUILA Not Available Start: 07-01-2023 End: 07-01-2023 ambulatory IVAN ABAD Not Available Start: 06-18-2023 End: 06-18-2023 ambulatory TERESE AGUILA Not Available Start: 05-20-2023 End: 05-20-2023 ambulatory IVAN POLLO Not Available Start: 10-10-2022 Telephone encounter [facility] Comment on above: Veneer Joiner - O ther Start: 10-09-2022 ambulatory Yulissa WOOD Work Phone: Audiology Start: 09-24-2022 End: 09-24-2022 ambulatory RIMMA STERLING Facility:[facility] Start: 09-24-2022 End: 09-24-2022 Patient encounter procedure Rimma Sterling PA-C Work Phone: Otolaryngology Comment on above: Cochlear implant in place (Primary Dx); Sensorineural hearing loss, asymmetrical; Sensorineural hearing loss, bilateral Start: 07-29-2022 End: 07-30-[address] ARIEL RAJAN Facility:[facility] Start: 07-18-2022 End: 07-18-[address] ROSA CAMPOS Facility:[facility] Start: 07-17-2022 Encounter for preprocedural laboratory examination DR ROSA CAMPOS [facility] Start: 07-16-2022 End: 07-17-[address] ROSA CAMPOS Facility:[facility] Start: 07-16-2022 End: 07-17-2022 Encounter for preprocedural laboratory examination DR ROSA CAMPOS Facility:[facility] Start: 07-02-2022 End: 07-03-[address] ROSA CAMPOS Facility:[facility] Start: 06-18-2022 End: 06-19-[address] ROSA CAMPOS Facility:[facility] Start: 11-27-2021 End: 11-27-[address] ROSA CAMPOS Facility:[facility] Start: 11-24-2021 End: 11-24-2021 ambulatory Megan Oconnor Other [facility] Other Start: 11-24-2021 Office outpatient vi sit [...] (3 - PPSV23 if available, else PCV20) [facility] Start: 04-22-2028 Screening for malign ant neoplasm of cervix [facility] Start: 04-26-2024 End: 04-26-2024 Patient encounter procedure 04/26/2024 9:00 AM EST Office Visit [facility] [address] [place] [address] Ivan Abad, DO [address], [place] [id number] [facility] Start: 08-13-2023 End: 08-13-2023 Patient encounter procedure 08/13/2023 11:20 AM EST Routine [facility] [address] [place] [address] Ivan Abad, DO [address] [place] [address] [facility] Start: 07-30-2023 End: 07-30-2024 US biophysical profile w non stress test US biophysical profile w non stress test Imaging Routine Small for gestational age (SGA) Expected: 07/30/2023 (Approximate), Expires: 07/30/2024 [facility] Work Phone: Comment on above: Expected: 07/30/2023 (Approximate), Expires: 07/30/2024 Start: 07-30-2023 End: 07-30-2023 Patient encounter procedure 07/30/2023 9:20 AM EST Routine [facility] [address] [id number] Ivan Abad, DO [address] [place] [address] [facility] Start: 07-23-2023 End: 07-23-2023 Professional / ancillary services management 07/23/2023 3:00 PM EST Ancillary Procedure [facility] [address] [id number] [facility] Start: 02-20-2023 Influenza vaccination [facility] Start: 06-22-2022 DEPRESSION ASSESSMENT DEPRESSION ASS ESSMENT [facility] Start: 10-20-2021 COVID-19 VACCINE (3 - Booster for Pfizer series) COVID-19 VACCINE (3 - Booster for Pfizer series) [facility] Start: 2019 Mammography MAMMOGRAM [facility] Start: 2019 Screening for malign ant neoplasm of breast Mammogram [facility] Start: 11-17-2009 HPV TESTING HPV TESTING [facility] Start: 11-17-2000 PAP TESTING PAP TESTING [facility] Start: 11-17-1998 Urine microalbumin profile DTAP,TDAP,TD (1 - Tdap) [facility] Start: 11-17-1997 HEPATITIS C SCREENING HEPATITIS C SC REENING [facility] Start: 11-17-1997 HIV SCREENING [facility] SCREENING [facility] Start: 1980 HEPATITIS B (1 of 3 - 3-dose series) HEPATITIS B (1 of 3 - 3-dose series) [facility] Immunizations Immunization Date Immunization Notes Care Provider Agustin bernabe 03-22-2020 influenza virus vacc ine, unspecified formulation Terese REYES Work Phone: [facility] 08-13-2017 pneumococcal polysaccharide vaccine, 23 valent Rimma Sterling PA-C Work Phone: [facility] 08-10-2014 pneumococcal conjuga te vaccine, 13 valent Rimma Sterling PA-C Work Phone: [facility] Payers Date Payer Category Payer Unknown [id number] 2022 Unknown [id number] 1980 Unknown [id number] 2.16.84 [id number] 1979 Unknown [id number] 2.16.84 0.1.952862.3.579.2.593 1979 Unknown [id number] 2.16.84 0.1.722630.3.579.2.593 1979 Unknown [id number] 2.16.84 0.1.631681.3.579.2.593 1979 Unknown [id number] 2.16.84 0.1.712632.3.579.2.593 1979 Unknown [id number] 2.16.84 0.1.556260.3.579.2.593 1979 Unknown [id number] 2.16.84 0.1.062925.3.579.2.593 1979 Unknown [id number] 2.16.84 0.1.069182.3.579.2.1259 1979 Unknown [id number] 2.16.84 0.1.650208.3.579.2.1258 1979 Unknown [id number] 2.16.84 0.1.090115.3.579.2.1258 1979 Unknown [id number] 2.16.84 0.1.058733.3.579.2.1258 1979 Unknown [id number] 2.16.84 0.1.143500.3.579.2.1258 1979 Unknown [id number] 2.16.84 0.1.301339.3.579.2.1258 1979 Unknown [id number] 2.16.840 .1.002212.3.579.2.1258 1979 Unknown [id number] 2.16.840 .1.059050.3.579.2.9 1960 [facility] [id number] [id number] Unknown [id number] 2.16.84 0.1.908209.3.579.2.593 Social History Date Type Detail Facility Start: 03-16-2023 Sex Assigned At [facility] Start: 09-24-2022 End: 03-16-2023 Tobacco smoking status MEIS Never smoked tobacco [facility] Start: 09-24-2022 End: 03-16-2023 Tobacco use and exposure Smokeless tobacco non-user [facility] Start: 09-24-2022 Alcohol intake Current non-drinker of alcohol (finding) [facility] Start: 1980 Sex Assigned At Female [facility] Start: 07-23-2023 End: 07-30-2023 Alcohol intake Ex-drinker (finding) [facility] Start: 03-16-2023 History of Social function [facility] Start: 04-22-2023 Alcohol Comment occasional alcohol use, Caffeine intake: none [facility] Start: 12-25-2022 [facility] Start: 01-21-2023 Gender identity Identifies as female gender (finding) [facility] Start: 01-21-2023 Sexual orientation Heterosexual (finding) [facility] Medical Equipment Procedure Code Equipment Code Equipment Original Text Equipment Identifier Dates Mtl-Ib-T-Kind Implant - [id number] Start: 09-02-2017 Comment on above: Description: [...] Ivan Abad DO documented in this encounter [facility] 07-23-2023 History of Presen t illness Narrative [...] of: ERIC Smallwood documented in this encounter [facility] 07-21-2023 Note HNO ID: [id number] Author: YULISSA JAIME AUD Service: ? Author Type: Inspector Tubes Type: Progress Notes Filed: 07/21/2023 08:47 Note Text: [facility] COCHLEAR IMPLANT ADULT PROGRAMMING Name: Amy Shravan [facility]#: [id number] Date of Service: July 21, 2023 Date of : 1980 Age: [age] year old COCHLEAR IMPLANT INFORMATION (see below for all device details) Updated: July 21, 2023 Right ear: Phonak Audeo RITE Hearing Aid that was fit at an outside facility (November 2021) and is being managed by that facility. Left ear: External Processor: Cochlear TheraVida [id number] (Nucleus 8; upgraded around January 2023) Processor SN: [id number] Processor ([id number]) SN: [id number] Magnet strength: 2 Internal Device: Cochlear [id number] Profile with Slim Modiolar Electrode Array Internal Device SN: [id number] Inactive electrodes: None Surgery Date: 09/02/2017 Initial [...] 6; Sensitivity: 12) before programming. See the [employer] Audiogram for obtained thresholds. Speech perception testing was completed at 60 crusher supervisor using recorded stimuli in the sound field at 0 degrees azimuth. NOTE: The contralateral ear was not plugged and muffed during testing. The following testing and results were obtained: Bpdwrhugv-Tyztdnh-Cqeksalpy Words (CNC) Test Condition List # Phonemes [...] hours. * Leeanne (more content not included)... [facility] 10-10-2022 Miscellaneous Notes Department Of Natural Resources Officer: Katerina Mina Patient: Hasmukh Alfaro 1980 Clinic: [facility] Inspector Tubes: Dr. Yulissa Jaime Appointment Length: 45 Minutes What are you looking to accomplish?: I d like to learn more about the Nucleus 8 and the process of upgrading Recipient's Stated Reason for Upgrading Clinic Request - Inspector Tubes recommended it [employer] - Processor more [...] steps are Acquisition Methods Recipient will receive Jqp-bl-Wrsucw cost estimate once order placed Next Steps If recipient decides to move forward with pursuing a Nucleus 8 upgrade and provides us with the necessary order information, we will start an order on their behalf. You will hear from Cochlear s Packaging Engineer team, via email/DocuSign to gain your approval or regarding an LMN to allow this patient to move forward in the process. Following completion of the upgrade process, I will invite the recipient to schedule time for a complimentary onboarding with our [employer] team so they can begin to maximize the use of their new Cochlear equipment. documented in this encounter [facility] 10-09-2022 Note HNO ID: [id number] Author: ISRAEL Champion Service: ? Author Type: Inspector Tubes Type: Progress Notes Filed: 10/09/2022 12:58 PM [...] any questions. Upgrade Consultation Clinic Patient Report Department Of Natural Resources Officer: Katerina Leopoldo Patient: Hasmukh Alfaro 1980 Clinic: [facility] Inspector Tubes: Dr. Yulissa Jaime Appointment Length: 45 Minutes What are you looking to accomplish?: I?d like to learn more about the Nucleus 8 and the process of upgrading Recipient's Stated Reason for Upgrading ? Clinic Request - Inspector Tubes recommended it ? [employer] - Processor [...] are Acquisition Methods ? Recipient will receive Nnd-oa-Cnvnzx cost estimate once order placed Next Steps ? If recipient decides to move forward with pursuing a Nucleus 8 upgrade and provides us with the necessary order information, we will start an order on their behalf. You will hear from Cochlear?s Packaging Engineer team, via email/DocuSign to gain your approval or regarding an LMN to allow this patient to move forward in the process. Following completion of the upgrade process, I will invite the recipient to schedule time for a complimentary onboarding with our [employer] team so they can begin to maximize the use of their new Cochlear equipment. Warm Regards, Katerina Mina Eloisa Champion, [facility]/A Clinical Inspector Tubes [facility] 10-09-2022 History of Presen t illness [...] any questions. Upgrade Consultation Clinic Patient Report Department Of Natural Resources Officer: Katerina Mina Patient: Hasmukh Alfaro 1980 Clinic: [facility] Inspector Tubes: Dr. Yulissa Jaime Appointment Length: 45 Minutes What are you looking to accomplish?: I d like to learn more about the Nucleus 8 and the process of upgrading Recipient's Stated Reason for Upgrading Clinic Request - Inspector Tubes recommended it [employer] - Processor more [...] steps are Acquisition Methods Recipient will receive Llw-vr-Zzphzu cost estimate once order placed Next Steps If recipient decides to move forward with pursuing a Nucleus 8 upgrade and provides us with the necessary order information, we will start an order on their behalf. You will hear from Cochlear s Packaging Engineer team, via email/DocuSign to gain your approval [...] Warm Regards, Katerina Eloisa Cole, GIOVANNY/A Clinical Inspector Tubes documented in this encounter [facility] 09-24-2022 Note HNO ID: [id number] Author: Rimma Sterling PA-C Service: ? Author Type: Physician Quality Control Assessor Type: Progress Notes Filed: 09/24/2022 9:53 AM Note Text: History of Present Illness Ms. AMY ALFARO is a 41 year old year old female presenting for: referred by SELF And is a patient of DO Abel Card DO [address] [place] [address] Communication will be via the electronic record [...] (FLONASE) 50 mcg/actuation nasal spray Use 1 [place] in each nostril as needed. multivitamin (DAILY [...] Medical Decision Making Level: 2 - Straightforward [facility] 09-24-2022 Instructions Rimma Sterling PA-C - 09/24/2022 9:[address] Audra Umanzor use his name on paperwork documented in this encounter [facility] 09-24-2022 History of Presen t illness Narrative History of Present Illness Ms. AMY ALFARO is a 41 year old year old female presenting for: referred by SELF And is a patient of DO Abel Card DO [address] [place] [address] Communication will be via the electronic record [...] (FLONASE) 50 mcg/actuation nasal spray Use 1 [place] in each nostril as needed. multivitamin (DAILY [...] 2 - Straightforward documented in this encounter [facility] 07-18-2022 Note EXAMINATION: US PELV IS HISTORY: Surgical procedure COMPARISON: Ultrasound less than 14 weeks 07/16/2022 TECHNIQUE: Transabdominal and transvaginal sonographic examination. FINDINGS: Final images show an empty endometrial cavity. IMPRESSION: 1. No appreciable products of conception within endometrial cavity following dilation and curettage. Electronically authenticated by: ALEXI BRANCH Date: 2022-07-18 08:21 [facility] 11-24-2021 Evaluation note Encounter Date Diagnosis Assessment [...] Fungal rash of trunk (ICD-10 - B36.9) [employer] Other Evaluation note* Diagnosis Cochlear implant in place- Primary Other postprocedural status Sensorineural hearing loss, asymmetrical Sensorineural hearing loss, bilateral [facility] Low blood pressure reading Nonspecific low blood pressure reading Dizziness Dizziness and giddiness Feeling faint Third trimester state, incidental [facility] Third trimester state, incidental Small for gestational age (SGA) [facility] N[facility]ative - Reported* Type Description Date Medical History bilateral hearing loss Surgical History cochlear implant Surgical History D&C [facility] Other Summary Purpose Family History No Family History Records FoundNo Family History Records FoundNo Family History Records Found Advance Directives No Advanced Directives Records FoundNo Advanced Directives Records FoundNo Advanced Directives Records Found Additional Source Comments REASON FOR VISIT (unrecogniz ed section and content) Reason Comments Hearing Loss New. Self referral. CI LT side. Last audio 03/18/22. Denies otalgia and otorrhea. Reason Comments Veneer Joiner - Other Reason Comments Dizziness Hypotension Reason Comments Routine Visit INFORMATION SOURCE (unrecogn ized section and content) DATE CREATED AUTHOR 07/30/[address] [facility] DATE CREATED AUTHOR AUTHOR'S ORGANIZ ATION 07/22/2023 [facility] DATE CREATED AUTHOR AUTHOR'S ORGANIZ ATION 08/21/2023 [facility] EPIC Source Comments (unrecognize d section and content) In the event this informatio n is protected by the Federal Confidentiality of Alcohol and Drug Abuse Patient Records regulations: The Federal rules restrict any use of the information to criminally investigate or prosecute any alcohol or drug abuse patient.[facility] the event this information is protected by the Federal Confidentiality of Alcohol and Drug Abuse Patient Records regulations: The Federal rules restrict any use of the information to criminally investigate or prosecute any alcohol or drug abuse patient.[facility] the event this information is protected by the Federal Confidentiality of Alcohol and Drug Abuse Patient Records regulations: The Federal rules restrict any use of the information to criminally investigate or prosecute any alcohol or drug abuse patient.[facility] Care Teams (unrecognized sec tion and content) Laster Hand Relationship Specialty Start Date End Date Abel Sun PCP - General Family Medicine 03/15/14 Laster Hand Relationship Specialty Start Date End Date Abel Sun PCP - General Family Medicine 03/15/14 Laster Hand Relationship Specialty Start Date End Date Abel Sun PCP - General Family Medicine 03/15/14 Laster Hand Relationship Specialty Start Date End Date Ariel Rajan MD [address] [place] [id number] [phone] PCP - General 02/16/23 Laster Hand Relationship Specialty Start Date End Date Ariel Rajan MD [address] [place] [phone] PCP - General 02/16/23 FOR RECORDS PERTAINING [...] BE BASED ON THE PRIMARY CLINICAL RECORDS. [facility] [employer] [facility] provides no warranty or guarantee of the accuracy or completeness of information in this document.
[2023-08-25 08:29] VITALS: BP 124/69; PULSE 67
== END 2023-08-25 08:50 | disposition home or self-care (01) ==
LOC: FBC 08:07 → US 08:07
PROVIDERS: PCP Family Medicine; Visit Provider Obstetrics & Gynecology
DX: O26.843 Uterine size-date discrepancy, third trimester (principal); Z3A.36 36 weeks gestation of pregnancy
CPT/HCPCS: 76818

== ENCOUNTER 2023-08-28 07:10 | Outpatient (OUT) | payer OTHER, SELFPAY ==
--- OUTSIDE RECORDS SUMMARY | 2023-08-28 07:27 | XMS_ITS | CCD ---
Author Name Unknown Address [address] [place] [address] Organization [employer] Care Team Providers Care Daycare Assistant Name Role Phone Megan Oconnor Unavailable ANDRES, [...] Unavailab Ariel Rich MD Primary Care Provider [phone] TERESE AGUILA Attending Unavailable IVAN ABAD Attending Unavailable TERESE AGUILA Attending Unavailable TERESE AGUILA Attending Unavailable IVAN ABAD Attending Unavailable IVAN ABAD Attending Unavailable IVAN ABAD Attending Unavailable IVAN ABAD Attending Unavailable Allergies Allergy Classification Reported Allergen(s) Allergy Type Date of Onset Reaction(s) Facility (4 sources) Seasonal allergy; Translations: [SEASONAL ALLERGIES] Allergy to substance 4 Cough [facility] (4 sources) Octacosanol Drug Allergy 4 Cough [facility] (4 sources) Other Propensity to adverse reactions 3 Unknown [facility] Medications Current Medications Medication Drug Class(es) Dates Sig (Normalized) Sig (Original) [id number] 200 actuat albuterol 0.09 mg/actuat metered dose [...] on above: Take 1 capsule by mo [facility] as needed. fluticasone propionate 0.05 mg/actuat metered dose nasal spray (3 sources) Corticosteroid fluticasone (FLONASE) 50 mcg/actuation nasal spray Indications: Bilateral sensorineural hearing loss , Autoimmune disorder of inner ear Use 1 Independence in each nostril as needed. 0 Active Comment on above: Use 1 Independence in each nostril as needed. LOW-DOSE ASPIRIN PO (2 sources) Start: 04-02-2023 End: 07-23-2023 LOW-DOSE ASPIRIN PO multivitamin (DAILY MULTIPLE) tablet (3 sources) take 1 tablet by mouth once daily multivitamin (DAILY MULTIPLE) tablet Take 1 tablet by mouth once daily. 0 Active Comment on above: Take 1 tablet by [facility] once daily. predniSONE 10 mg oral tablet [...] low weight; and growth retardation (2 sources) Grbad-vlc-icyts baby; Translations: [[place] small for gestational age, unspecified weight] 07-30-2023 [...] UA Negative Negative - 4(70) +++ mg/dL [facility] Blood, UA Positive Negative - 50 Bobby/mcL [facility] Comment on above: trace-intact Clarity, UA Clear [facility] re Color, UA Yellow [facility] Glucose, UA Negative Negative - 1999(110) ++++ mg/dL [facility] Interpretation and review of laboratory results Abnormal [facility] Ketones, UA Negative Negative - 160(16) ++++ mg/dL [facility] Leukocytes, UA Positive Negative - 500+++ Suzette/mcL [facility] Comment on above: small Nitrite, UA Negative Negative - Positive [facility] pH, UA 6.0 5 - 9 [facility], [facility]A Negative Negative - 1999(20) ++++ mg/dL [facility] Spec Grav, UA 1.010 1 - 1.03 [facility] Urobilinogen, UA 0.2 0.2 - 12 mg/dL [facility]inal[facility] macro (dipstick) panel (U)on 07-23-2023 Bilirubin, UA Negative Negative - 4(70) +++ mg/dL [facility] Blood, UA Negative Negative - 50 Bobby/mcL [facility] Clarity, UA Clear [facility] Health[facility] re Color, UA Yellow [facility] Glucose, UA Negative Negative - 1999(110) ++++ mg/dL [facility] Interpretation and review of laboratory results Abnormal [facility] Ketones, UA Negative Negative - 160(16) ++++ mg/dL [facility] Leukocytes, UA Positive Negative - 500+++ Suzette/mcL [facility] Comment on above: small Nitrite, UA Negative Negative - Positive [facility] pH, UA 7.0 5 - [address] [facility] Protein, UA Negative Negative - 1999(20) ++++ mg/dL [facility] Spec Grav, UA 1.015 1 - 1.03 [facility] Urobilinogen, UA 0.2 0.2 - 12 mg/dL [facility] CNOVon 07-21-2023 CNOV Office Visit (OTAUCR ) AMY ALFARO ([id number]) 1980 F Date Time Provider Department 07/21/23 7:30 AM YULISSA JAIME During your visit today, we recorded the following information about you: Yulissa Jaime AUD 07/21/2023 8:47 AM Signed [facility] [place] [facility] [employer]PL[employer] ADULT PROGRAMMING Name: Amy ALFARO [facility]#: [id number] Date of Service: July 21, 2023 Date of : 1980 Age: [age] year old COCHLEAR IMPLANT INFORMATION (see below for all device details) Updated: July 21, 2023 Right ear: Phonak Audeo RITE Hearing Aid that was fit at an outside facility (November 2021) and is being managed by that facility. Left ear: External Processor: [employer] [id number] (Nucleus 8; upgraded around January 2023) Processor SN: [id number] Processor ([id number]) SN: [id number] Magnet strength: 2 Internal Device: Cochlear [id number] Profile with Slim Modiolar Electrode Array Internal Device SN: [id number] Inactive electrodes: None Surgery Date: 09/02/2017 Initial [...] Speech perception testing was completed at 60 long term care administrator using recorded stimuli in the sound field at 0 degrees azimuth. NOTE: The contralateral ear was not plugged and muffed during testing. The following testing and results were obtained: Bcrdxsysj-Mehupks-Xwf sonant Words (CNC) Test Condition List # [...] etc. Shoul (more content not included)... Normal [facility] 10-10-2022 CNPN Telephone (HNQ) DOMINICAMY Shravan ([id number]) 1980 F Date Time Provider Department 10/10/22 CHINALEO MARIIA During your visit today, we recorded the following information about you: Leo China 10/10/2022 3:52 PM Signed Plate Driller: Katerina Mina Patient: Hasmukh Alfaro 1980 Clinic: [facility] Driver Messenger: Dr. Yulissa Jaime Appointment Length: 45 Minutes What are you looking to accomplish?: I?d like to learn more about the Nucleus 8 and the process of upgrading Recipient's Stated Reason for Upgrading ? Clinic Request - Driver Messenger recommended it ? [employer] - Processor [...] are Acquisition Methods ? Recipient will receive [id number] cost estimate once order placed Next Steps ? If recipient decides to move forward with pursuing a Nucleus 8 upgrade and provides us with the necessary order information, we will start an order on their behalf. 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 - fluticasone (FLONASE) 50 mcg/actuation nasal spray Use 1 Independence in each nostril as needed. - multivitamin [...] Encounter Status:Closed by LEO ATKINSON [facility]10/22 [facility] ) ALFAROAMY MAYNARD Shravan ([id number]) 1980 F Date Time Provider Department 09/24/22 9:30 AM RIMMA STERLING OTOLJAMES During your visit today, we recorded the following information about you: Rimma Sterling PA-C 09/24/2022 9:53 AM Signed History of Present Illness Ms. AMY ALFARO is a 41 year old year old female presenting for: referred by SELF And is a patient of DO Abel Card DO [address] [id number] Communication will be via the electronic record [...] (FLONASE) 50 mcg/actuation nasal spray Use 1 Independence in each nostril as needed. multivitamin (DAILY [...] Decision Making Level: 2 - Straightforward Rimma Sterlign PA-C 09/24/2022 9:[address] Audra Umanzor use his name on paperwork Referring Provider: SELF [[id number]] Allergies As of Date: 09/24/2022 Noted Allergy Reaction SEASONAL ALLERGIES 1 (more content not included)... Normal [facility] CBC AUTO DIFFon 07-29-2022 BASO # 0.0 103/ul Normal 0.0-0.1 [facility] Comment on above: Performed By: #### C BC #### [facility] [address] [place] [address] Dr. Jani Haywood Basophils/100 WBC (Bld) 0.6 % Normal 0.2-2.0 [facility] Comment on above: Performed By: #### C BC #### [facility] [address] [place] [address] Dr. Jani Haywood EO # 0.1 103/ul Normal 0.0-0.7 [facility] Comment on above: Performed By: #### C BC #### [facility] [address] [place] [address] Dr. Jani Haywood Eosinophils/100 WBC (Bld) 2.5 % Normal 0.9-7.0 [facility] Comment on above: Performed By: #### C BC #### [facility] [address] [place] [address] Dr. Jani Haywood Erythrocyte distribution width (RBC) [Ratio] 13.7 % Normal 11.0-15.0 [facility] Comment on above: Performed By: #### C BC #### [facility] [address] [place] [address] Dr. Jani Haywood Hematocrit (Bld) [Volume fraction] 40.3 % Normal 36.0-48.0 [facility] Comment on above: Performed By: #### C BC #### [facility] [address] [place] [address] Dr. Jani Haywood Hemoglobin (Bld) [Mass/Vol] 12.7 g/dL Normal 12.0-16.0 [facility] Comment on above: Performed By: #### C BC #### [facility] [address] [place] [address] Dr. Jani Haywood IG # 0.01 10e3/ul Normal 0.00-0.03 [facility] Comment on above: Performed By: #### C BC #### [facility] [address] [place] [address] Dr. Jani Haywood IG % 0.2 % Normal 0.0-0.5 [facility] Comment on above: Performed By: #### C BC #### [facility] [address] [place] [address] Dr. Jani Haywood LYMPH # 1.8 103/ul Normal 1.2-3.8 [facility] Comment on above: Performed By: #### C BC #### [facility] [address] [place] [address] Dr. Jani Haywood Lymphocytes/100 WBC (Bld) 35.2 % Normal 20.5-60.0 [facility] Comment on above: Performed By: #### C BC #### [facility] [address] [place] [address] Dr. Jani Haywood MANUAL DIFF REQ NO Normal [facility] Comment on above: Performed By: #### C BC #### [facility] [address] [place] [address] Dr. Jani Haywood MCH (RBC) [Entitic mass] 30.5 pg Normal 26.7-34.0 [facility] Comment on above: Performed By: #### C BC #### [facility] [address] [place] [address] Dr. Jani Haywood MCHC (RBC) [Mass/Vol] 31.5 g/dL Normal 29.9-35.2 [facility] Comment on above: Performed By: #### C BC #### [facility] [address] [place] [address] Dr. Jani Haywood MCV (RBC) [Entitic vol] 96.9 fL Normal 81.0-99.0 [facility] Comment on above: Performed By: #### C BC #### [facility] [address] [place] [address] Dr. Jani Haywood MONO # 0.4 103/ul Normal 0.3-0.8 [facility] Comment on above: Performed By: #### C BC #### [facility] [address] [place] [address] Dr. aJni Haywood Monocytes/100 WBC (Bld) 8.1 % Normal 1.7-12.0 [facility] Comment on above: Performed By: #### C BC #### [facility] [address] [place] [address] Dr. Jani Haywood NEUT # 2.8 103/ul Normal 1.4-6.5 [facility] Comment on above: Performed By: #### C BC #### [facility] [address] [place] [address] Dr. Jani Haywood Neutrophils/100 WBC (Bld) 53.4 % Normal 43.0-75.0 [facility] Comment on above: Performed By: #### C BC #### [facility] [address] [place] [address] Dr. Jani Haywood Platelet mean volume (Bld) [Entitic vol] 10.0 fL Normal 9.5-13.5 [facility] Comment on above: Performed By: #### C BC #### [facility] [address] [place] [address] Dr. Jani Haywood PLT 271 103/ul Normal 150-450 [facility] Comment on above: Performed By: #### C BC #### [facility] [address] [place] [address] Dr. Jani Haywood RBC 4.16 106/ul Critically low 4.20-5.40 [facility] Comment on above: Performed By: #### C BC #### [facility] [address] [place] [address] Dr. Jani Haywood WBC 5.2 103/ul Normal 4.0-11.0 [facility] Comment on above: Performed By: #### C BC #### [facility] [address] [place] [address] Dr. Jani Haywood IRONon 07-29-2022 Iron [Mass/Vol] 64.0 ug/dL Normal 50.0-170.0 [facility] Comment on above: Performed By: #### A 1C #### [facility] [address] [place] [address] Dr. Jani Haywood PROF 14(COMP METB)on 023 Albumin [Mass/Vol] 3.5 g/dL Normal 3.4-5.0 [facility] Comment on above: Performed By: #### C MP #### [facility] [address] [place] [address] Dr. Jani Haywood Albumin/Globulin [Mass ratio] 0.9 {ratio} Normal [facility] Comment on above: Performed By: #### C MP #### [facility] [address] [address] [address] Jani Haywood ALP [Catalytic activity/Vol] 73 U/L Normal 46-116 [facility] Comment on above: Performed By: #### C MP #### [facility] [address] [address] [address] Jani Haywood ALT [Catalytic activity/Vol] 12 U/L Critically low 14-59 [facility] Comment on above: Performed By: #### C MP #### [facility] [address] [address] [address] Jani Haywood Anion gap [Moles/Vol] 11.0 mmol/L Normal [facility] Comment on above: Performed By: #### C MP #### [facility] [address] [address] [address] Jani Haywood AST [Catalytic activity/Vol] 13 U/L Critically low 15-37 [facility] Comment on above: Performed By: #### C MP #### [facility] [address] [address] [address] Jani Haywood Bilirubin [Mass/Vol] 0.5 mg/dL Normal 0.2-1.0 [facility] Comment on above: Performed By: #### C MP #### [facility] [address] [address] [address] Jani Haywood Calcium [Mass/Vol] 8.6 mg/dL Normal 8.5-10.1 [facility] Comment on above: Performed By: #### C MP #### [facility] [address] [address] [address] Jani Haywood Chloride [Moles/Vol] 105 mmol/L Normal 98-107 [facility] Comment on above: Performed By: #### C MP #### [facility] [address] [address] [address] Jani Haywood CO2 [Moles/Vol] 28.8 mmol/L Normal 21.0-32.0 [facility] Comment on above: Performed By: #### C MP #### [facility] [address] [address] [address] Jani Haywood Creatinine [Mass/Vol] 0.87 mg/dL Normal 0.55-1.02 [facility] Comment on above: Performed By: #### C MP #### [facility] [address] [address] [address] Jani Haywood EGFR-AF AZERBAIJANI >60 Normal >=60 [facility] Comment on above: Performed By: #### C MP #### [facility] [address] [address] [address] Jani Haywood EGFR-NON AF AZERBAIJANI >60 Normal >=60 [facility] Comment on above: Performed By: #### C MP #### [facility] [address] [address] [address] Jani Haywood Globulin (S) [Mass/Vol] 3.7 g/dL Normal [facility] Comment on above: Performed By: #### C MP #### [facility] [address] [address] [address] Jani Haywood Glucose [Mass/Vol] 95 mg/dL Normal 74-106 [facility] Comment on above: Performed By: #### C MP #### [facility] [address] [address] [address] Jani Haywood Potassium [Moles/Vol] 3.8 mmol/L Normal 3.5-5.1 [facility] Comment on above: Performed By: #### C MP #### [facility] [address] [address] [address] Jani Haywood Protein [Mass/Vol] 7.2 g/dL Normal 6.4-8.2 [facility] Comment on above: Performed By: #### C MP #### [facility] [address] [address] [address] Jani Haywood Sodium [Moles/Vol] 141 mmol/L Normal 136-145 [facility] Comment on above: Performed By: #### C MP #### [facility] [address] [address] [address] Jani Haywood Urea nitrogen [Mass/Vol] 12.0 mg/dL Normal 7.0-18.0 [facility] Comment on above: Performed By: #### C MP #### [facility] [address] [address] [address] Jani Haywood Urea nitrogen/Creatinine [Mass ratio] 13.8 mg/mg Normal [facility] Comment on above: Performed By: #### C MP #### [facility] [address] [address] [address] Jani Haywood Covid-19 PCR ([facility])on 06-23 SARS-CoV-2 (COVID-19) RNA CAROLE+probe Ql (Unsp spec) Not detected Normal NOT DETECTED [facility] Comment on above: Result Comment: This test is not yet approved or cleared by the [place] FDA. When there are no FDA-approved or cleared tests available, and other criteria are met, FDA can make tests available under an emergency access mechanism called an Emergency Use Authorization (EUA). The EUA for this test is supported by the Litigator of Health and Human Service's (HHS's) declaration [...] SARS-CoV-2. Performed By: #### C VDTB #### [facility] [address] [address] [address] Jani Haywood US PREG <14 WKSon [...] was notified of these findings by the museum exhibit designer at time of imaging. Electronically authenticated by: ALEXI BRANCH Date: 2022-07-16 13:36 Normal [facility] HEP B SURFACE ANTIGEN SCREEN on 07-03-2022 HBsAg Screen Negative Normal Negative [facility] Comment on above: Performed By: #### A 1C #### [facility] [address] [place] [address] Dr. Jani Haywood HEPATITIS C VIRUS AB W/ REFL EX QUANTon 07-03-2022 HCV AB <0.1 Normal 0.0-0.9 [facility] Comment on above: Performed By: #### H CVPCRR #### [facility] [address] [place] [address] Dr. Jani Haywood Interpretation: Comment Normal [facility] Comment on above: Result Comment: Nega tive Not infected with HCV, unless recent infection is suspected or other evidence exists to indicate HCV infection. Performed By: #### H CVPCRR #### [facility] [address] [place] [address] Dr. Jani Haywood HIV 1 AND 2 WITH REFLEXon HIV Screen 4th Generation wRfx Non-Reactive Normal Non Reactive [facility] Comment on above: Result Comment: HIV Negative HIV-1/HIV-2 antibodies and HIV-1 p24 antigen were NOT detected. There is no laboratory evidence of HIV infection. Performed By: #### H IV12 #### [facility] [address] [place] [address] Dr. Jani Haywood RPR QUANTon 07-03-2022 Rapid Plasma Reagin, Quant Non-Reactive Normal NonRea<1:1 [facility] Comment on above: Result Comment: Plea se Note: This test does not meet current guidelines for screening and diagnosis of syphilis. This test is intended for following treatment response in patients being treated for syphilis infection. To screen for syphilis infection, a reflex cascade that includes both RPR and a treponema-specific assay should be utilized, such as Treponema pallidum (Syphilis) Screening [place] (034816) or Rapid Plasma Reagin (RPR) Test With Reflex to Quantitative RPR and Confirmatory Treponema pallidum Antibodies (199309). Performed By: #### R PRQ #### [facility] [address] [place] [address] Dr. Jani Haywood RUBELLA AB IGGon 07-03-2022 Rubella Antibodies, IgG 2.92 index Normal Immune >0.99 [facility] Comment on above: Result Comment: Non- immune <0.90 Equivocal 0.90 - 0.99 Immune >0.99 Performed By: #### A 1C #### [facility] [address] [place] [address] Dr. Jani Haywood CBC AUTO DIFFon 07-02-2022 BASO # 0.1 103/ul Normal 0.0-0.1 [facility] Comment on above: Performed By: #### C BC #### [facility] [address] [place] [address] Dr. Jani Haywood Basophils/100 WBC (Bld) 0.7 % Normal 0.2-2.0 [facility] Comment on above: Performed By: #### C BC #### [facility] [address] [place] [address] Dr. Jani Haywood EO # 0.1 103/ul Normal 0.0-0.7 [facility] Comment on above: Performed By: #### C BC #### [facility] [address] [place] [address] Dr. Jani Haywood Eosinophils/100 WBC (Bld) 1.2 % Normal 0.9-7.0 [facility] Comment on above: Performed By: #### C BC #### [facility] [address] [place] [address] Dr. Jani Haywood Erythrocyte distribution width (RBC) [Ratio] 13.7 % Normal 11.0-15.0 [facility] Comment on above: Performed By: #### C BC #### [facility] [address] [place] [address] Dr. Jani Haywood Hematocrit (Bld) [Volume fraction] 37.9 % Normal 36.0-48.0 [facility] Comment on above: Performed By: #### C BC #### [facility] [address] [place] [address] Dr. Jani Haywood Hemoglobin (Bld) [Mass/Vol] 12.6 g/dL Normal 12.0-16.0 [facility] Comment on above: Performed By: #### C BC #### [facility] [address] [place] [address] Dr. Jani Haywood IG # 0.02 10e3/ul Normal 0.00-0.03 [facility] Comment on above: Performed By: #### C BC #### [facility] [address] [place] [address] Dr. Jani Haywood IG % 0.3 % Normal 0.0-0.5 [facility] Comment on above: Performed By: #### C BC #### [facility] [address] [place] [address] Dr. Jani Haywood LYMPH # 1.6 103/ul Normal 1.2-3.8 [facility] Comment on above: Performed By: #### C BC #### [facility] [address] [place] [address] Dr. Jani Haywood Lymphocytes/100 WBC (Bld) 21.5 % Normal 20.5-60.0 [facility] Comment on above: Performed By: #### C BC #### [facility] [address] [place] [address] Dr. Jani Haywood MANUAL DIFF REQ NO Normal [facility] Comment on above: Performed By: #### C BC #### [facility] [address] [place] [address] Dr. Jani Haywood MCH (RBC) [Entitic mass] 30.4 pg Normal 26.7-34.0 [facility] Comment on above: Performed By: #### C BC #### [facility] [address] [place] [address] Dr. Jani Haywood MCHC (RBC) [Mass/Vol] 33.2 g/dL Normal 29.9-35.2 [facility] Comment on above: Performed By: #### C BC #### [facility] [address] [place] [address] Dr. Jani Haywood MCV (RBC) [Entitic vol] 91.3 fL Normal 81.0-99.0 [facility] Comment on above: Performed By: #### C BC #### [facility] [address] [place] [address] Dr. Jani Haywood MONO # 0.5 103/ul Normal 0.3-0.8 [facility] Comment on above: Performed By: #### C BC #### [facility] [address] [place] [address] Dr. Jani Haywood Monocytes/100 WBC (Bld) 6.6 % Normal 1.7-12.0 [facility] Comment on above: Performed By: #### C BC #### [facility] [address] [place] [address] Dr. Jani Haywood NEUT # 5.1 103/ul Normal 1.4-6.5 [facility] Comment on above: Performed By: #### C BC #### [facility] [address] [place] [address] Dr. Jani Haywood Neutrophils/100 WBC (Bld) 69.7 % Normal 43.0-75.0 [facility] Comment on above: Performed By: #### C BC #### [facility] [address] [place] [address] Dr. Jani Haywood Platelet mean volume (Bld) [Entitic vol] 10.2 fL Normal 9.5-13.5 [facility] Comment on above: Performed By: #### C BC #### [facility] [address] [place] [address] Dr. Jani Haywood PLT 281 103/ul Normal 150-450 [facility] Comment on above: Performed By: #### C BC #### [facility] [address] [address] [address] Jani Haywood RBC 4.15 106/ul Critically low 4.20-5.40 [facility] Comment on above: Performed By: #### C BC #### [facility] [address] [address] [address] Jani Haywood WBC 7.3 103/ul Normal 4.0-11.0 [facility] Comment on above: Performed By: #### C BC #### [facility] [address] [address] [address] Jani Haywood GLYCOHEMOGLOBIN A1Con 2022 ADA RECOMMENDATION SEE BELOW Normal [facility] Comment on above: Result Comment: ADA RECOMMENDED LIMIT 4.0 - 6.0 ADA THERAPEUTIC TARGET < 7.0 ACTION SUGGESTED > 7.0 Performed By: #### A 1C #### [facility] [address] [place] [address] Dr. Jani Haywood Glucose [Mass/Vol] 103 mg/dL Normal [facility] Comment on above: Performed By: #### A 1C #### [facility] [address] [place] [address] Dr. Jani Haywood HbA1c (Bld) [Mass fraction] 5.2 % Normal 4.5-6.2 [facility] Comment on above: Performed By: #### A 1C #### [facility] [address] [place] [address] Dr. Jani Haywood CRISTELA BOX TEST PT SEND OUTo n 07-02-2022 SENT TO REF LAB 07/02/2022 Normal [facility] Comment on above: Performed By: #### N BOX #### [facility] [address] [place] [address] Dr. Jani Haywood TYPE AND SCREENon 07-02-2022 TYPE AND SCREEN Negative Normal [facility] Comment on above: Performed By: #### A 1C #### [facility] [address] [place] [address] Dr. Jani Haywood US PREG TVon 06-18-2022 [...] BATRES Date: 2022-06-18 16:09 Normal [facility] PAP ACOG PANEL 2: 30 to 65on 12-03-2021 . . Normal [facility] Comment on above: Result Comment: Perf ormed at: WB Performed By: #### [id number] #### [facility] [address] [place] [address] Dr. Jani Haywood Age Gdln ACOG Testing 30-65 Normal [facility] Comment on above: Performed By: #### 4 [id number] #### [facility] [address] [place] [address] Dr. Jani Haywood DIAGNOSIS: Comment Normal [facility] Comment on above: Result Comment: NEGA TIVE FOR INTRAEPITHELIAL LESION OR MALIGNANCY. Performed at: WB Performed By: #### 4 [id number] #### [facility] [address] [place] [address] Dr. Jani Haywood HPV Aptima Negative Normal Negative [facility] Comment on above: Result Comment: This nucleic acid amplification test detects fourteen high-risk HPV types (16,18,31,33,35,39,45,51,52,56,58,59,66,68) without differentiation. Performed at: =G Performed By: #### 4 [id number] #### [facility] [address] [address] [address] Jani Haywood Methodology: Comment Normal [facility] Comment on above: Result Comment: This liquid based ThinPrep(R) pap test was screened with the use of an image guided system. Performed at: WB Performed By: #### [id number] #### [facility] [address] [place] [address] Dr. Jani Haywood Note: Comment [facility] Comment on above: Result Comment: The Pap smear is a screening test designed to aid in the detection of premalignant and malignant conditions of the uterine cervix. It is not a diagnostic procedure and should not be used as the sole means of detecting cervical cancer. Both false-positive and false-negative reports do occur. . Performed at: WB Performed By: #### 4 [id number] #### [facility] [address] [address] [address] Jani Haywood Performed by: Comment Normal [facility] Comment on above: Result Comment: Nikki Schwab, Automation Tender (ASCP) Performed at: WB Performed By: #### 4 [id number] #### [facility] [address] [place] [address] Dr. Jani Haywood Specimen adequacy: Comment Normal [facility] Comment on above: Result Comment: Sati sfactory for evaluation. Endocervical and/or squamous metaplastic cells (endocervical component) are present. Performed at: WB Performed By: #### 4 [id number] #### [facility] [address] [place] [address] Dr. Jani Haywood Vital Signs Date Time Vital Sign Value Performing Clinician Facility 07-30-2023 09:32-0500 Body mass index (BMI) [Ratio] 25.88 kg/m2 [employer] Work Phone: [facility] 07-30-2023 09:32-0500 Body weight 66.28 kg Ivan Pollo [employer] Work Phone: [facility] 07-30-2023 09:32-0500 Diastolic blood pressure 60 mm[Hg] Ivan Pollo DO Work Phone: [facility] 07-30-2023 09:32-0500 Systolic blood pressure 100 mm[Hg] Ivan Pollo DO Work Phone: [facility] 07-23-2023 14:33-0500 Body mass index (BMI) [Ratio] 26.24 kg/m2 Terese REYES Work Phone: [facility] 07-23-2023 14:33-0500 Body weight 67.19 kg Terese REYES Work Phone: [facility] 07-23-2023 14:33-0500 Diastolic blood pressure 68 mm[Hg] Terese REYES Work Phone: [facility] 07-23-2023 14:33-0500 Systolic blood pressure 110 mm[Hg] Terese REYES Work Phone: [facility] 11-24-2021 14:10-0400 Body height 160.02 cm Megan Oconnor Other [employer] Other 11-24-2021 14:10-0400 Body mass index (BMI) [Ratio] 20.55 kg/m2 Megan Sorensenault Other [facility] Other 11-24-2021 14:10-0400 Body temperature 96.9 [degF] Megan Sorensenault Other [employer] Other 11-24-2021 14:10-0400 Body weight 52.62 kg Megan Oconnor Other [employer] Other 11-24-2021 14:10-0400 SaO2% (BldA) [Mass fraction] 97 % Megan Oconnor Other [employer] Other Encounters Encounter Date Encounter Type Care Provider Facility Start: 08-20-2023 End: 08-20-2023 ambulatory IVAN POLLO Not Available Start: 08-13-2023 End: 08-13-2023 ambulatory IVAN POLLO Not Available Start: 07-30-2023 End: 07-30-2023 ambulatory IVAN POLLO Not Available Start: 07-30-2023 End: 07-30-2023 flow sheet Ivan Pollo DO Work Phone: [facility] Comment on above: Third trimester preg luan; Small for gestational age (SGA) Start: 07-23-2023 End: 07-23-2023 ambulatory TERESE AGUILA Not Available Start: 07-23-2023 End: 07-23-2023 flow sheet Terese REYES Work Phone: [facility] Comment on above: Low blood pressure r eading; Dizziness; Feeling faint; Third trimester Start: 07-21-2023 End: 07-21-2023 ambulatory YULISSA JAIME Facility:[facility] Start: 07-15-2023 End: 07-15-2023 ambulatory TERESE AGUILA Not Available Start: 07-01-2023 End: 07-01-2023 ambulatory IVAN ABAD Not Available Start: 06-18-2023 End: 06-18-2023 ambulatory TERESE AGUILA Not Available Start: 05-20-2023 End: 05-20-2023 ambulatory IVAN POLLO Not Available Start: 10-10-2022 Telephone encounter [facility] Comment on above: 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 Start: 10-09-2022 ambulatory Yulissa WOOD Work Phone: Audiology Start: 09-24-2022 End: 09-24-2022 ambulatory RIMMA STERLING Facility:[facility] Start: 09-24-2022 End: 09-24-2022 Patient encounter procedure Rimma Sterling PA-C Work Phone: Otolaryngology Comment on above: Cochlear implant in place (Primary Dx); Sensorineural hearing loss, asymmetrical; Sensorineural hearing loss, bilateral Start: 07-29-2022 End: 07-30-[address] ARIEL RAJAN Facility:[facility] Start: 07-18-2022 End: 07-18-[address] ROSA CAMPOS Facility:[facility] Start: 07-17-2022 Encounter for preprocedural laboratory examination DR ROSA CAMPOS [facility] Start: 07-16-2022 End: 07-17-[address] ORSA CAMPOS Facility:[facility] Start: 07-16-2022 End: 07-17-2022 Encounter for preprocedural laboratory examination DR ROSA CAMPOS Facility:[facility] Start: 07-02-2022 End: 07-03-[address] ROSA CAMPOS Facility:[facility] Start: 06-18-2022 End: 06-19-[address] ROSA CAMPOS Facility:[facility] Start: 11-27-2021 End: 11-27-[address] ROSA CAMPOS Facility:[facility] Start: 11-24-2021 End: 11-24-2021 ambulatory Megan Oconnor Other [employer] Other Start: 11-24-2021 Office outpatient vi sit [...] (3 - PPSV23 if available, else PCV20) [facility] Start: 04-22-2028 Screening for malign ant neoplasm of cervix [facility] Start: 04-26-2024 End: 04-26-2024 Patient encounter procedure 04/26/2024 9:00 AM EST Office Visit [facility] [address] [place] [address] Ivan Abad, DO [address], [place] [id number] [facility] Start: 08-13-2023 End: 08-13-2023 Patient encounter procedure 08/13/2023 11:20 AM EST Routine [facility] [address] [place] [address] Ivan Abad, DO [address] [place] [address] [facility] Start: 07-30-2023 End: 07-30-2024 US biophysical profile w non stress test US biophysical profile w non stress test Imaging Routine Small for gestational age (SGA) Expected: 07/30/2023 (Approximate), Expires: 07/30/2024 [facility] Work Phone: Comment on above: Expected: 07/30/2023 (Approximate), Expires: 07/30/2024 Start: 07-30-2023 End: 07-30-2023 Patient encounter procedure 07/30/2023 9:20 AM EST Routine [facility] [address] [place] [id number] Ivan Abad, DO [address] [place] [address] [facility] Start: 07-23-2023 End: 07-23-2023 Professional / ancillary services management 07/23/2023 3:00 PM EST Ancillary Procedure [facility] [address] [place] [id number] [facility] Start: 02-20-2023 Influenza vaccination C [facility] Start: 06-22-2022 DEPRESSION ASSESSMENT DEPRESSION ASS ESSMENT [facility] Start: 10-20-2021 COVID-19 VACCINE (3 - Booster for Pfizer series) COVID-19 VACCINE (3 - Booster for Pfizer series) [facility] Start: 2019 Mammography MAMMOGRAM [facility] Start: 2019 Screening for malign ant neoplasm of breast Mammogram [facility] Start: 11-17-2009 HPV TESTING HPV TESTING [facility] Start: 11-17-2000 PAP TESTING PAP TESTING [facility] Start: 11-17-1998 Urine microalbumin profile DTAP,TDAP,TD (1 - Tdap) [facility] Start: 11-17-1997 HEPATITIS C SCREENING HEPATITIS C SC REENING [facility] Start: 11-17-1997 HIV SCREENING [facility]CREENING [facility] Start: 1980 HEPATITIS B (1 of 3 - 3-dose series) HEPATITIS B (1 of 3 - 3-dose series) [facility] Immunizations Immunization Date Immunization Notes Care Provider Agustin bernabe 03-22-2020 influenza virus vacc ine, unspecified formulation Terese REYES Work Phone: [facility] 08-13-2017 pneumococcal polysaccharide vaccine, 23 valent Rimma Sterling PA-C Work Phone: [facility] 08-10-2014 pneumococcal conjuga te vaccine, 13 valent Rimma Sterling PA-C Work Phone: [facility] Payers Date Payer Category Payer Unknown [id number] 2022 Unknown [id number] 1980 Unknown [id number] 2.16.84 [id number] 1979 Unknown [id number] 2.16.84 0.1.519292.3.579.2.593 1979 Unknown [id number] 2.16.84 0.1.924076.3.579.2.593 1979 Unknown [id number] 2.16.84 0.1.202727.3.579.2.593 1979 Unknown [id number] 2.16.84 0.1.048838.3.579.2.593 1979 Unknown [id number] 2.16.84 0.1.994540.3.579.2.593 1979 Unknown [id number] 2.16.84 0.1.841421.3.579.2.593 1979 Unknown [id number] 2.16.84 0.1.843400.3.579.2.1259 1979 Unknown [id number] 2.16.84 0.1.721074.3.579.2.1258 1979 Unknown [id number] 2.16.84 0.1.386109.3.579.2.1258 1979 Unknown [id number] 2.16.84 0.1.619163.3.579.2.1258 1979 Unknown [id number] 2.16.84 0.1.232408.3.579.2.1258 1979 Unknown [id number] 2.16.84 0.1.186817.3.579.2.1258 1979 Unknown [id number] 2.16.840 .1.116373.3.579.2.1258 1979 Unknown [id number] 2.16.840 .1.086175.3.579.2.9 1960 [facility] [id number] Unknown [id number] 2.16.84 0.1.274984.3.579.2.593 Social History Date Type Detail Facility Start: 03-16-2023 Sex Assigned At [facility] Other Start: 09-24-2022 End: 03-16-2023 Tobacco smoking status NYIS Never smoked tobacco [facility] Start: 09-24-2022 End: 03-16-2023 Tobacco use and exposure Smokeless tobacco non-user [facility] Start: 09-24-2022 Alcohol intake Current non-drinker of alcohol (finding) [facility] Start: 1980 Sex Assigned At Female [facility] Start: 07-23-2023 End: 07-30-2023 Alcohol intake Ex-drinker (finding) [facility] Start: 03-16-2023 [address] [facility] Start: 04-22-2023 Alcohol Comment occasional alcohol use, Caffeine intake: none [facility] Start: 12-25-2022 [facility] Start: 01-21-2023 Gender identity Identifies as female gender (finding) [facility] Start: 01-21-2023 Sexual orientation Heterosexual (finding) [facility] Medical Equipment Procedure Code Equipment Code Equipment Original Text Equipment Identifier Dates Bis-Bw-I-Kind Implant - [id number] Start: 09-02-2017 Comment on above: Description: [...] Ivan Abad DO documented in this encounter [facility] 07-23-2023 History of Presen t illness Narrative [...] of: ERIC Smallwood documented in this encounter [facility] 07-21-2023 Note HNO ID: [id number] Author: YULISSA JAIME AUD Service: ? Author Type: Driver Messenger Type: Progress Notes Filed: 07/21/2023 08:47 Note Text: [facility] Section of Allied Hearing, Speech and Balance Services COCHLEAR IMPLANT ADULT PROGRAMMING Name: Amy Shravan [facility]#: [id number] Date of Service: July 21, 2023 Date of : 1980 Age: [age] year old COCHLEAR IMPLANT INFORMATION (see below for all device details) Updated: July 21, 2023 Right ear: Phonak Audeo RITE Hearing Aid that was fit at an outside facility (November 2021) and is being managed by that facility. Left ear: External Processor: Cochlear BeQuan [id number] (Nucleus 8; upgraded around January 2023) Processor SN: [id number] Processor ([id number]) SN: [id number] Magnet strength: 2 Internal Device: Cochlear [id number] Profile with Slim Modiolar Electrode Array Internal Device SN: [id number] Inactive electrodes: None Surgery Date: 09/02/2017 Initial [...] 6; Sensitivity: 12) before programming. See the [employer] Audiogram for obtained thresholds. Speech perception testing was completed at 60 long term care administrator using recorded stimuli in the sound field at 0 degrees azimuth. NOTE: The contralateral ear was not plugged and muffed during testing. The following testing and results were obtained: Llfwsfnhu-Tvgksmd-Nexznkuty Words (CNC) Test Condition List # Phonemes [...] hours. * Leeanne (more content not included)... [facility] 10-10-2022 Miscellaneous Notes Plate Driller: Katerina Mina Patient: Hasmukh Alfaro 1980 Clinic: [facility] Driver Messenger: Dr. Yulissa Jaime Appointment Length: 45 Minutes What are you looking to accomplish?: I d like to learn more about the Nucleus 8 and the process of upgrading Recipient's Stated Reason for Upgrading Clinic Request - Driver Messenger recommended it [employer] - Processor more [...] steps are Acquisition Methods Recipient will receive Bzw-ae-Dpitte cost estimate once order placed Next Steps If recipient decides to move forward with pursuing a Nucleus 8 upgrade and provides us with the necessary order information, we will start an order on their behalf. You will hear from Cochle[employer] s Footwear Machinery Instructor team, via email/DocuSign to gain your approval or regarding an LMN to allow this patient to move forward in the process. Following completion of the upgrade process, I will invite the recipient to schedule time for a complimentary onboarding with our [employer] team so they can begin to maximize the use of their new Cochlear equipment. documented in this encounter [facility] 10-09-2022 Note HNO ID: [id number] Author: ISRAEL Champion Service: ? Author Type: Driver Messenger Type: Progress Notes Filed: 10/09/2022 12:58 PM [...] any questions. Upgrade Consultation Clinic Patient Report Plate Driller: Katerina Leopoldo Patient: Hasmukh Alfaro 1980 Clinic: [facility] Driver Messenger: Dr. Yulissa Jaime Appointment Length: 45 Minutes What are you looking to accomplish?: I?d like to learn more about the Nucleus 8 and the process of upgrading Recipient's Stated Reason for Upgrading ? Clinic Request - Driver Messenger recommended it ? [employer] - Processor [...] are Acquisition Methods ? Recipient will receive Kag-oh-Kinmcw cost estimate once order placed Next Steps ? If recipient decides to move forward with pursuing a Nucleus 8 upgrade and provides us with the necessary order information, we will start an order on their behalf. You will hear from Cochle[employer]?s Footwear Machinery Instructor team, via email/DocuSign to gain your approval or regarding an LMN to allow this patient to move forward in the process. Following completion of the upgrade process, I will invite the recipient to schedule time for a complimentary onboarding with our [employer] team so they can begin to maximize the use of their new Cochlear equipment. Warm Regards, Katerina Mina Eloisa Champion, [facility]/A Clinical Driver Messenger [facility] 10-09-2022 History of Presen t illness [...] any questions. Upgrade Consultation Clinic Patient Report Plate Driller: Katerina Mina Patient: Hasmukh Alfaro 1980 Clinic: [facility] Driver Messenger: Dr. Yulissa Jaime Appointment Length: 45 Minutes What are you looking to accomplish?: I d like to learn more about the Nucleus 8 and the process of upgrading Recipient's Stated Reason for Upgrading Clinic Request - Driver Messenger recommended it [employer] - Processor more [...] steps are Acquisition Methods Recipient will receive Dvb-fz-Nlzsrr cost estimate once order placed Next Steps If recipient decides to move forward with pursuing a Nucleus 8 upgrade and provides us with the necessary order information, we will start an order on their behalf. You will hear from Cochle[employer] s Footwear Machinery Instructor team, via email/DocuSign to gain your approval or regarding an LMN to allow this patient to move forward in the process. Following completion of the upgrade process, I will invite the recipient to schedule time for a complimentary onboarding with our [employer] team so they can begin to maximize the use of their new Cochlear equipment. Warm Regards, Katerian Eloisa Cole, [facility]/A Clinical Driver Messenger documented in this encounter [facility] 09-24-2022 Note HNO ID: [id number] Author: Rimma Sterling PA-C Service: ? Author Type: Physician Vp Delivery Type: Progress Notes Filed: 09/24/2022 9:53 AM Note Text: History of Present Illness Ms. AMY ALFARO is a 41 year old year old female presenting for: referred by SELF And is a patient of DO Abel Card DO [address] [place] [address] Communication will be via the electronic record [...] (FLONASE) 50 mcg/actuation nasal spray Use 1 Independence in each nostril as needed. multivitamin (DAILY [...] Medical Decision Making Level: 2 - Straightforward [facility] 09-24-2022 Instructions Rimma Sterling PA-C - 09/24/2022 9:[address] Audra Umanzor use his name on paperwork documented in this encounter [facility] 09-24-2022 History of Presen t illness Narrative History of Present Illness Ms. AMY ALFARO is a 41 year old year old female presenting for: referred by SELF And is a patient of DO Abel Card DO [address] [place] [address] Communication will be via the electronic record [...] (FLONASE) 50 mcg/actuation nasal spray Use 1 Independence in each nostril as needed. multivitamin (DAILY [...] 2 - Straightforward documented in this encounter [facility] 07-18-2022 Note EXAMINATION: US PELV IS HISTORY: Surgical procedure COMPARISON: Ultrasound less than 14 weeks 07/16/2022 TECHNIQUE: Transabdominal and transvaginal sonographic examination. FINDINGS: Final images show an empty endometrial cavity. IMPRESSION: 1. No appreciable products of conception within endometrial cavity following dilation and curettage. Electronically authenticated by: ALEXI BRANCH Date: 2022-07-18 08:21 [facility] 11-24-2021 Evaluation note Encounter Date Diagnosis Assessment [...] Fungal rash of trunk (ICD-10 - B36.9) [facility] Other Evaluation note* Diagnosis Cochlear implant in place- Primary Other postprocedural status Sensorineural hearing loss, asymmetrical Sensorineural hearing loss, bilateral [facility] Low blood pressure reading [...] Surgical History cochlear implant Surgical History D&C [facility] Other Summary Purpose Family History No Family History Records FoundNo Family History Records FoundNo Family History Records Found Advance Directives No Advanced Directives Records FoundNo Advanced Directives Records FoundNo Advanced Directives Records Found Additional Source Comments REASON FOR VISIT (unrecogniz ed section and content) Reason Comments Hearing Loss New. Self referral. CI LT side. Last audio 03/18/22. Denies otalgia and otorrhea. 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 - Other Reason Comments Dizziness Hypotension Reason Comments Routine Visit INFORMATION SOURCE (unrecogn ized section and content) DATE CREATED AUTHOR 07/30/2022 [facility] DATE CREATED AUTHOR AUTHOR'S ORGANIZ ATION 07/22/2023 [facility] DATE CREATED AUTHOR AUTHOR'S ORGANIZ ATION 08/21/2023 [facility] EPIC Source Comments (unrecognize d section and content) In the event this informatio n is protected by the Federal Confidentiality of Alcohol and Drug Abuse Patient Records regulations: The Federal rules restrict any use of the information to criminally investigate or prosecute any alcohol or drug abuse patient.[facility] event this information is protected by the Federal Confidentiality of Alcohol and Drug Abuse Patient Records regulations: The Federal rules restrict any use of the information to criminally investigate or prosecute any alcohol or drug abuse patient.[facility] event this information is protected by the Federal Confidentiality of Alcohol and Drug Abuse Patient Records regulations: The Federal rules restrict any use of the information to criminally investigate or prosecute any alcohol or drug abuse patient.[facility] Care Teams (unrecognized sec tion and content) Daycare Assistant Relationship Specialty Start Date End Date Abel Sun PCP - General Family Medicine 03/15/14 Daycare Assistant Relationship Specialty Start Date End Date Abel Snu PCP - General Family Medicine 03/15/14 Daycare Assistant Relationship Specialty Start Date End Date Abel Sun PCP - General Family Medicine 03/15/14 Daycare Assistant Relationship Specialty Start Date End Date Ariel Rajan MD [address] [place] [id number] [phone] PCP - General 02/16/23 Daycare Assistant Relationship Specialty Start Date End Date Ariel Rajan MD [address] [place] [id number] [phone] PCP - General 02/16/23 FOR RECORDS PERTAINING [...] BE BASED ON THE PRIMARY CLINICAL RECORDS. [email or web address] [facility]. provides no warranty or guarantee of the accuracy or completeness of information in this document.
[2023-08-28 08:07] VITALS: BP 120/56; PULSE 85
== END 2023-08-28 08:40 | disposition home or self-care (01) ==
LOC: FBCO 07:25 → FBC 08:02
PROVIDERS: PCP Family Medicine; Visit Provider Obstetrics & Gynecology
DX: O26.843 Uterine size-date discrepancy, third trimester (principal); O09.529 Supervision of elderly multigravida, unspecified trimester
CPT/HCPCS: 59025

== ENCOUNTER 2023-09-01 07:36 | Outpatient (OUT) | payer OTHER, SELFPAY ==
--- NOTE | 2023-09-01 | US_ITS ---
[address] [address] Patient Name: HILLARY ALFARO MRN: [id number] date: 1980 Sex: F Assigned Patient Location: [facility] Current Patient Location: [facility] Accession/Order Number: [id number] Exam Date: 09/01/2023 08:06 Report Date: 09/01/2023 08:33 At the request of: IVAN KARIMI Procedure: US OB BPP w non-stress EXAMINATION: US OB BPP w non-stress HISTORY: SMALL FOR GESTATIONAL AGE P05.10 COMPARISON: No relevant comparison available. TECHNIQUE: Ultrasound biophysical profile was performed in the radiology department. FINDINGS: BREATHING MOVEMENTS: 2.0 GROSS BODY MOVEMENTS: 2.0 TONE: 2.0 QUALITATIVE AMNIOTIC FLUID VOLUME: 2.0 PRESENTATION: CEPHALIC HEART RATE: 139.9 bpm H.B./min AMNIOTIC FLUID VOLUME: 12.4 cm cm GESTATIONAL AGE: 37 weeks 5 days CONCLUSION: Total biophysical profile score: 8.0 Electronically authenticated by: RIMMA BATRES Date: 09/01/2023 08:33
--- OUTSIDE RECORDS SUMMARY | 2023-09-01 07:39 | XMS_ITS | CCD ---
Author Name Unknown Address [address] [place] [address] Organization [facility] Care Team Providers Care Power Plant Technician Name Role Phone Megan Oconnor Unavailable ANDRES, [...] Unavailab Ariel Rich MD Primary Care Provider [phone] MINGO, TERESE Attending Unavailable POLLO, IVAN Attending Unavailable TERESE AGUILA Attending Unavailable MINGO, TERESE Attending Unavailable POLLO, IVAN Attending Unavailable POLLO, IVAN Attending Unavailable POLLO, IVAN Attending Unavailable POLLO, IVAN Attending Unavailable POLLO, IVAN Attending Unavailable Allergies Allergy Classification Reported Allergen(s) Allergy Type Date of Onset Reaction(s) Facility (4 sources) Seasonal allergy; Translations: [SEASONAL ALLERGIES] Allergy to substance 4 Cough [facility] (4 sources) Octacosanol Drug Allergy 4 Cough [facility] (4 sources) Other Propensity to adverse reactions 3 Unknown [facility] Medications Current Medications Medication Drug Class(es) Dates Sig (Normalized) Sig (Original) [id number] 200 actuat albuterol 0.09 mg/actuat metered dose [...] on above: Take 1 capsule by [facility] as needed. fluticasone propionate 0.05 mg/actuat metered dose nasal spray (3 sources) Corticosteroid fluticasone (FLONASE) 50 mcg/actuation nasal spray Indications: Bilateral sensorineural hearing loss , Autoimmune disorder of inner ear Use 1 Randlett in each nostril as needed. 0 Active Comment on above: Use 1 Randlett in each nostril as needed. LOW-DOSE ASPIRIN PO (2 sources) Start: 04-02-2023 End: 07-23-2023 LOW-DOSE ASPIRIN PO multivitamin (DAILY MULTIPLE) tablet (3 sources) take 1 tablet by mouth once daily multivitamin (DAILY MULTIPLE) tablet Take 1 tablet by mouth once daily. 0 Active Comment on above: Take 1 tablet by [facility] once daily. predniSONE 10 mg oral [...] low weight; and growth retardation (2 sources) Gljwv-geo-vqzqu baby; Translations: [ small for gestational age, [...] [facility] re Color, UA Yellow [facility] e Glucose, UA Negative Negative - [...] Center pH, UA 6.0 5 - 9 [facility] e Protein, UA Negative Negative - 1999(20) ++++ mg/dL [facility] Spec Grav, UA 1.010 1 - 1.03 [facility] Urobilinogen, UA 0.2 0.2 - 12 mg/dL [facility] Urinalysis macro (dipstick) panel (U)on 07-23-2023 Bilirubin, UA Negative Negative - 4(70) +++ mg/dL [facility] Blood, UA Negative Negative - 50 Bobby/mcL [facility] Clarity, UA Clear [facility] re Color, UA Yellow [facility] Glucose, UA Negative Negative [...] Center pH, UA 7.0 5 - 9 [facility] Protein, UA Negative Negative - 1999(20) ++++ mg/dL [facility] Spec Grav, UA 1.015 1 - 1.03 [facility] Urobilinogen, UA 0.2 0.2 - 12 mg/dL [facility] 07-21-2023 CNOV Office Visit (OTAUCR ) AMY ALFARO ([id number]) 1980 F Date Time Provider Department 07/21/23 7:30 AM YULISSA JAIME During your visit today, we recorded the following information about you: Yulissa Jaime AUD 07/21/2023 8:47 AM Signed [facility] [place] [facility] COCHLEAR IMPLANT ADULT PROGRAMMING Name: Amy ALFARO CC#: [id number] Date of Service: July 21, 2023 Date of : 1980 Age: [age] year old COCHLEAR IMPLANT INFORMATION (see below for all device details) Updated: July 21, 2023 Right ear: Phonak Audeo [facility] [employer] Aid that was fit at an outside facility (November 2021) and is being managed by that facility. 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 NOTE: The contralateral ear was not plugged and muffed during testing. The following testing and results were obtained: Ceetbcohx-Qtyozwp-Buv sonant Words (CNC) Test Condition List # [...] Shoul (more content not included)... Normal [facility] CNPJosefina 10-10-2022 CNPN Telephone (HNQ) AMY ALFARO ([id number]) 1980 F Date Time Provider Department 10/10/22 LEO ATKINSON During your visit today, we recorded the following information about you: Leo Atkinson 10/10/2022 3:52 PM Signed Sports Physical Therapist: Katerina Mina Patient: Hasmukh Alfaro 1980 Clinic: [facility] Tissue Specialist: Dr. Yulissa Jaime Appointment Length: 45 Minutes What are you looking to accomplish?: I?d like to learn more about the Nucleus 8 and the process of upgrading Recipient's Stated Reason for Upgrading ? Clinic Request - Tissue Specialist recommended it ? Useful Life - Processor [...] are Acquisition Methods ? Recipient will receive Btm-gy-Zoxffy cost estimate once order placed Next Steps ? If recipient decides to move forward with pursuing a Nucleus 8 upgrade and provides us with the necessary order information, we will start an order on their behalf. 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 - fluticasone (FLONASE) 50 mcg/actuation nasal spray Use 1 Randlett in each nostril as needed. - multivitamin [...] ATKINSON on 10/10/22 [facility] CNOVon 09-24-2022 CNOV Office Visit (OTOLCR ) AMY ALFARO ([id number]) 1980 F Date Time Provider Department 09/24/22 9:30 AM RIMMA STERLING OTVIDAL During your visit today, we recorded the following information about you: Rimma Sterling PA-C 09/24/2022 9:53 AM Signed History of Present Illness Ms. AMY ALFARO is a 41 year old year old female presenting for: referred by SELF And is a patient of DO Abel Card DO [address] [phone] Communication will be via the electronic record [...] (FLONASE) 50 mcg/actuation nasal spray Use 1 Randlett in each nostril as needed. multivitamin (DAILY [...] 1 (more content not included)... Normal [facility] CBC AUTO DIFFon 07-29-2022 BASO # 0.0 103/ul Normal 0.0-0.1 [facility] Comment on above: Performed By: #### C BC #### [facility] [address] [place] [address] Dr. Jani Haywood Basophils/100 WBC (Bld) 0.6 % Normal 0.2-2.0 [facility] Comment on above: Performed By: #### C BC #### [facility] [address] [place] [address] Dr. Jani Haywood EO # 0.1 103/ul Normal 0.0-0.7 [facility] Comment on above: Performed By: #### C BC #### [facility] [address] [place] [address] Dr. Jani Haywood Eosinophils/100 WBC (Bld) 2.5 % Normal 0.9-7.0 [facility] Comment on above: Performed By: #### C BC #### [facility] [address] [place] [address] Dr. Jani Haywood Erythrocyte distribution width (RBC) [Ratio] 13.7 % Normal 11.0-15.0 [facility] Comment on above: Performed By: #### C BC #### [facility] [address] [place] [address] Dr. Jani Haywood Hematocrit (Bld) [Volume fraction] 40.3 % Normal 36.0-48.0 [facility] Comment on above: Performed By: #### C BC #### [facility] [address] [place] [address] Dr. Jani Haywood Hemoglobin (Bld) [Mass/Vol] 12.7 g/dL Normal 12.0-16.0 [facility] Comment on above: Performed By: #### C BC #### [facility] [address] [place] [address] Dr. Jani Haywood IG # 0.01 10e3/ul Normal 0.00-0.03 [facility] Comment on above: Performed By: #### C BC #### [facility] [address] [place] [address] Dr. Jain Haywood IG % 0.2 % Normal 0.0-0.5 [facility] Comment on above: Performed By: #### C BC #### [facility] [address] [place] [address] Dr. Jani Haywood LYMPH # 1.8 103/ul Normal 1.2-3.8 [facility] Comment on above: Performed By: #### C BC #### [facility] [address] [place] [address] Dr. Jani Haywood Lymphocytes/100 WBC (Bld) 35.2 % Normal 20.5-60.0 [facility] Comment on above: Performed By: #### C BC #### [facility] [address] [place] [address] Dr. Jani Haywood MANUAL DIFF REQ NO Normal [facility] Comment on above: Performed By: #### C BC #### [facility] [address] [place] [address] Dr. Jani Haywood MCH (RBC) [Entitic mass] 30.5 pg Normal 26.7-34.0 [facility] Comment on above: Performed By: #### C BC #### [facility] [address] [place] [address] Dr. Jani Haywood MCHC (RBC) [Mass/Vol] 31.5 g/dL Normal 29.9-35.2 [facility] Comment on above: Performed By: #### C BC #### [facility] [address] [place] [address] Dr. Jani Haywood MCV (RBC) [Entitic vol] 96.9 fL Normal 81.0-99.0 [facility] Comment on above: Performed By: #### C BC #### [facility] [address] [place] [address] Dr. Jani Haywood MONO # 0.4 103/ul Normal 0.3-0.8 [facility] Comment on above: Performed By: #### C BC #### [facility] [address] [place] [address] Dr. Jani Haywood Monocytes/100 WBC (Bld) 8.1 % Normal 1.7-12.0 [facility] Comment on above: Performed By: #### C BC #### [facility] [address] [place] [address] Dr. Jani Haywood NEUT # 2.8 103/ul Normal 1.4-6.5 [facility] Comment on above: Performed By: #### C BC #### [facility] [address] [place] [address] Dr. Jani Haywood Neutrophils/100 WBC (Bld) 53.4 % Normal 43.0-75.0 [facility] Comment on above: Performed By: #### C BC #### [facility] [address] [place] [address] Dr. Jani Haywood Platelet mean volume (Bld) [Entitic vol] 10.0 fL Normal 9.5-13.5 [facility] Comment on above: Performed By: #### C BC #### [facility] [address] [place] [address] Dr. Jani Haywood PLT 271 103/ul Normal 150-450 [facility] Comment on above: Performed By: #### C BC #### [facility] [address] [place] [address] Dr. Jani Haywood RBC 4.16 106/ul Critically low 4.20-5.[address] [facility] Comment on above: Performed By: #### C BC #### [facility] [address] [place] [address] Dr. Jani Haywood WBC 5.2 103/ul Normal 4.0-11.0 [facility] Comment on above: Performed By: #### C BC #### [facility] [address] [place] [address] Dr. Jani Haywood IRONon 07-29-2022 Iron [Mass/Vol] 64.0 ug/dL Normal 50.0-170.[address] [facility] Comment on above: Performed By: #### A 1C #### [facility] [address] [place] [address] Dr. Jani Haywood PROF 14(COMP METB)on 023 Albumin [Mass/Vol] 3.5 g/dL Normal 3.4-5.0 [facility] Comment on above: Performed By: #### C MP #### [facility] [address] [place] [address] Dr. Jani Haywood Albumin/Globulin [Mass ratio] 0.9 {ratio} Normal [facility] Comment on above: Performed By: #### C MP #### [facility] [address] [address] [address] Jani Haywood ALP [Catalytic activity/Vol] 73 U/L Normal 46-116 [facility] Comment on above: Performed By: #### C MP #### [facility] [address] [address] [address] Jani Haywood ALT [Catalytic activity/Vol] 12 U/L Critically low 14-59 [facility] Comment on above: Performed By: #### C MP #### [facility] [address] [place] [address] Dr. Jani Haywood Anion gap [Moles/Vol] 11.0 mmol/L Normal [facility] Comment on above: Performed By: #### C MP #### [facility] [address] [place] [address] Dr. Jani Haywood AST [Catalytic activity/Vol] 13 U/L Critically low 15-37 [facility] Comment on above: Performed By: #### C MP #### [facility] [address] [place] [address] Dr. Jani Haywood Bilirubin [Mass/Vol] 0.5 mg/dL Normal 0.2-1.0 [facility] Comment on above: Performed By: #### C MP #### [facility] [address] [address] [address] Jani Haywood Calcium [Mass/Vol] 8.6 mg/dL Normal 8.5-10.1 [facility] Comment on above: Performed By: #### C MP #### [facility] [address] [address] [address] Jani Haywood Chloride [Moles/Vol] 105 mmol/L Normal 98-107 [facility] Comment on above: Performed By: #### C MP #### [facility] [address] [address] [address] Jani Haywood CO2 [Moles/Vol] 28.8 mmol/L Normal 21.0-32.0 [facility] Comment on above: Performed By: #### C MP #### [facility] [address] [address] [address] Jani Haywood Creatinine [Mass/Vol] 0.87 mg/dL Normal 0.55-1.02 [facility] Comment on above: Performed By: #### C MP #### [facility] [address] [address] [address] Jani Haywood EGFR-AF MONGOLIAN >60 Normal >=60 [facility] Comment on above: Performed By: #### C MP #### [facility] [address] [address] [address] Jani Haywood EGFR-NON AF MONGOLIAN >60 Normal >=60 [facility] Comment on above: Performed By: #### C MP #### [facility] [address] [place] [address] Dr. Jani Haywood Globulin (S) [Mass/Vol] 3.7 g/dL Normal [facility] Comment on above: Performed By: #### C MP #### [facility] [address] [place] [address] Dr. Jani Haywood Glucose [Mass/Vol] 95 mg/dL Normal 74-106 [facility] Comment on above: Performed By: #### C MP #### [facility] [address] [place] [address] Dr. Jani Haywood Potassium [Moles/Vol] 3.8 mmol/L Normal 3.5-5.1 [facility] Comment on above: Performed By: #### C MP #### [facility] [address] [place] [address] Dr. Jani Haywood Protein [Mass/Vol] 7.2 g/dL Normal 6.4-8.2 [facility] Comment on above: Performed By: #### C MP #### [facility] [address] [address] [address] Jani Haywood Sodium [Moles/Vol] 141 mmol/L Normal 136-145 [facility] Comment on above: Performed By: #### C MP #### [facility] [address] [place], [place] [address] Dr. Jani Haywood Urea nitrogen [Mass/Vol] 12.0 mg/dL Normal 7.0-18.0 [facility] Comment on above: Performed By: #### C MP #### [facility] [address] [place], [place] [address] Dr. Jani Haywood Urea nitrogen/Creatinine [Mass ratio] 13.8 mg/mg Normal [facility] Comment on above: Performed By: #### C MP #### [facility] [address] [place], [place] [address] Dr. Jani Haywood Covid-19 PCR ([facility])on 06-23 SARS-CoV-2 (COVID-19) RNA CAROLE+probe Ql (Unsp spec) Not detected Normal NOT DETECTED [facility] Comment on above: Result Comment: This test is not yet approved or cleared by the [place] FDA. When there are no FDA-approved or cleared tests available, and other criteria are met, FDA can make tests available under an emergency access mechanism called an Emergency Use Authorization (EUA). The EUA for this test is supported by the Occasional Babysitter of Health and Human Service's (HHS's) declaration [...] SARS-CoV-2. Performed By: #### C VDTB #### [facility] [address] [id number] Jani Haywood US PREG <14 WKSon [...] was notified of these findings by the middle school humanities teacher at time of imaging. Electronically authenticated by: ALEXI BRANCH Date: 2022-07-16 13:36 Normal [facility] HEP B SURFACE ANTIGEN SCREEN on 07-03-2022 HBsAg Screen Negative Normal Negative [facility] Comment on above: Performed By: #### A 1C #### [facility] [address] [place] [address] Dr. Jani Haywood HEPATITIS C VIRUS AB W/ REFL EX QUANTon 07-03-2022 HCV AB <0.1 Normal 0.0-0.9 [facility] Comment on above: Performed By: #### H CVPCRR #### [facility] [address] [place] [address] Dr. Jani Haywood Interpretation: Comment Normal [facility] Comment on above: Result Comment: Nega tive Not infected with HCV, unless recent infection is suspected or other evidence exists to indicate HCV infection. Performed By: #### H CVPCRR #### [facility] [address] [address] [address] Jani Haywood HIV 1 AND 2 WITH REFLEXon HIV Screen 4th Generation wRfx Non-Reactive Normal Non Reactive [facility] Comment on above: Result Comment: HIV Negative HIV-1/HIV-2 antibodies and HIV-1 p24 antigen were NOT detected. There is no laboratory evidence of HIV infection. Performed By: #### H IV12 #### [facility] [address] [place] [address] Dr. Jani Haywood RPR QUANTon 07-03-2022 Rapid Plasma Reagin, Quant Non-Reactive Normal NonRea<1:1 [facility] Comment on above: Result Comment: Plea se Note: This test does not meet current guidelines for screening and diagnosis of syphilis. This test is intended for following treatment response in patients being treated for syphilis infection. To screen for syphilis infection, a reflex cascade that includes both RPR and a treponema-specific assay should be utilized, such as Treponema pallidum (Syphilis) Screening Cache (752771) or Rapid Plasma Reagin (RPR) Test With Reflex to Quantitative RPR and Confirmatory Treponema pallidum Antibodies (977810). Performed By: #### R PRQ #### [facility] [address] [place] [address] Dr. Jani Haywood RUBELLA AB IGGon 07-03-2022 Rubella Antibodies, IgG 2.92 index Normal Immune >0.99 [facility] Comment on above: Result Comment: Non- immune <0.90 Equivocal 0.90 - 0.99 Immune >0.99 Performed By: #### A 1C #### [facility] [address] [place] [address] Dr. Jani Haywood CBC AUTO DIFFon 07-02-2022 BASO # 0.1 103/ul Normal 0.0-0.1 [facility] Comment on above: Performed By: #### C BC #### [facility] [address] [place] [address] Dr. Jani Haywood Basophils/100 WBC (Bld) 0.7 % Normal 0.2-2.0 [facility] Comment on above: Performed By: #### C BC #### [facility] [address] [place] [address] Dr. Jani Haywood EO # 0.1 103/ul Normal 0.0-0.7 [facility] Comment on above: Performed By: #### C BC #### [facility] [address] [place] [address] Dr. Jani Haywood Eosinophils/100 WBC (Bld) 1.2 % Normal 0.9-7.0 [facility] Comment on above: Performed By: #### C BC #### [facility] [address] [place] [address] Dr. Jani Haywood Erythrocyte distribution width (RBC) [Ratio] 13.7 % Normal 11.0-15.0 [facility] Comment on above: Performed By: #### C BC #### [facility] [address] [place] [address] Dr. Jani Haywood Hematocrit (Bld) [Volume fraction] 37.9 % Normal 36.0-48.0 [facility] Comment on above: Performed By: #### C BC #### [facility] [address] [place] [address] Dr. Jani Haywood Hemoglobin (Bld) [Mass/Vol] 12.6 g/dL Normal 12.0-16.0 [facility] Comment on above: Performed By: #### C BC #### [facility] [address] [place] [address] Dr. Jani Haywood IG # 0.02 10e3/ul Normal 0.00-0.03 [facility] Comment on above: Performed By: #### C BC #### [facility] [address] [place] [address] Dr. Jani Haywood IG % 0.3 % Normal 0.0-0.5 [facility] Comment on above: Performed By: #### C BC #### [facility] [address] [place] [address] Dr. Jani Haywood LYMPH # 1.6 103/ul Normal 1.2-3.8 [facility] Comment on above: Performed By: #### C BC #### [facility] [address] [place] [address] Dr. Jani Haywood Lymphocytes/100 WBC (Bld) 21.5 % Normal 20.5-60.0 [facility] Comment on above: Performed By: #### C BC #### [facility] [address] [place] [address] Dr. Jani Haywood MANUAL DIFF REQ NO Normal [facility] Comment on above: Performed By: #### C BC #### [facility] [address] [place] [address] Dr. Jani Haywood MCH (RBC) [Entitic mass] 30.4 pg Normal 26.7-34.0 [facility] Comment on above: Performed By: #### C BC #### [facility] [address] [address] [address] Jani Haywood MCHC (RBC) [Mass/Vol] 33.2 g/dL Normal 29.9-35.2 [facility] Comment on above: Performed By: #### C BC #### [facility] [address] [address] [address] Jani Haywood MCV (RBC) [Entitic vol] 91.3 fL Normal 81.0-99.0 [facility] Comment on above: Performed By: #### C BC #### [facility] [address] [place] [address] Dr. Jani Haywood MONO # 0.5 103/ul Normal 0.3-0.8 [facility] Comment on above: Performed By: #### C BC #### [facility] [address] [place] [address] Dr. Jani Haywood Monocytes/100 WBC (Bld) 6.6 % Normal 1.7-12.0 [facility] Comment on above: Performed By: #### C BC #### [facility] [address] [place] [address] Dr. Jani Haywood NEUT # 5.1 103/ul Normal 1.4-6.5 [facility] Comment on above: Performed By: #### C BC #### [facility] [address] [place] [address] Dr. Jani Haywood Neutrophils/100 WBC (Bld) 69.7 % Normal 43.0-75.0 [facility] Comment on above: Performed By: #### C BC #### [facility] [address] [address] [address] Jani Haywood Platelet mean volume (Bld) [Entitic vol] 10.2 fL Normal 9.5-13.5 [facility] Comment on above: Performed By: #### C BC #### [facility] [address] [place] [address] Dr. Jani Haywood PLT 281 103/ul Normal 150-450 [facility] Comment on above: Performed By: #### C BC #### [facility] [address] [address] [address] Jani Haywood RBC 4.15 106/ul Critically low 4.20-5.40 [facility] Comment on above: Performed By: #### C BC #### [facility] [address] [place] [address] Dr. Jani Haywood WBC 7.3 103/ul Normal 4.0-11.0 [facility] Comment on above: Performed By: #### C BC #### [facility] [address] [place] [address] Dr. Jani Haywood GLYCOHEMOGLOBIN A1Con 2022 ADA RECOMMENDATION SEE BELOW Normal [facility] Comment on above: Result Comment: ADA RECOMMENDED LIMIT 4.0 - 6.0 ADA THERAPEUTIC TARGET < 7.0 ACTION SUGGESTED > 7.0 Performed By: #### A 1C #### [facility] [address] [place] [address] Dr. Jani Haywood Glucose [Mass/Vol] 103 mg/dL Normal [facility] Comment on above: Performed By: #### A 1C #### [facility] [address] [place] [address] Dr. Jani Haywood HbA1c (Bld) [Mass fraction] 5.2 % Normal 4.5-6.2 [facility] Comment on above: Performed By: #### A 1C #### [facility] [address] [place] [address] Dr. Jani Haywood CRISTELA BOX TEST PT SEND OUTo n 07-02-2022 SENT TO REF LAB 07/02/[address] [facility] Comment on above: Performed By: #### N BOX #### [facility] [address] [place] [address] Dr. Jani Haywood TYPE AND SCREENon 07-02-2022 TYPE AND SCREEN Negative Normal [facility] Comment on above: Performed By: #### A 1C #### [facility] [address] [place] [address] Dr. Jani Haywood US PREG TVon 06-18-2022 [...] by: RIMMA BATRES Date: 2022-06-18 16:09 Normal [facility] PAP ACOG PANEL 2: 30 to 65on 12-03-2021 . . Normal [facility] Comment on above: Result Comment: Perf ormed at: WB Performed By: #### [id number] #### [facility] [address] [place] [address] Dr. Jani Haywood Age Gdln ACOG Testing 29- [facility] Comment on above: Performed By: #### [id number] #### [facility] [address] [place] [address] Dr. Jani Haywood DIAGNOSIS: Comment Normal [facility] Comment on above: Result Comment: NEGA TIVE FOR INTRAEPITHELIAL LESION OR MALIGNANCY. Performed at: WB Performed By: #### [id number] #### [facility] [address] [place] [address] Dr. Jani Haywood HPV Aptima Negative Normal Negative [facility] Comment on above: Result Comment: This nucleic acid amplification test detects fourteen high-risk HPV types (16,18,31,33,35,39,45,51,52,56,58,59,66,68) without differentiation. Performed at: =G Performed By: #### [id number] #### [facility] [address] [place] [address] Dr. Jani Haywood Methodology: Comment Normal [facility] Comment on above: Result Comment: This liquid based ThinPrep(R) pap test was screened with the use of an image guided system. Performed at: WB Performed By: #### [id number] #### [facility] [address] [place] [address] Dr. Jani Haywood Note: Comment Normal [facility] Comment on above: Result Comment: The Pap smear is a screening test designed to aid in the detection of premalignant and malignant conditions of the uterine cervix. It is not a diagnostic procedure and should not be used as the sole means of detecting cervical cancer. Both false-positive and false-negative reports do occur. . Performed at: WB Performed By: #### [id number] #### [facility] [address] [address] [address] Jani Haywood Performed by: Comment Normal [facility] Comment on above: Result Comment: Nikki Schwab, Inorganic Chemistry Teacher (ASCP) Performed at: WB Performed By: #### [id number] #### [facility] [address] [place] [address] Dr. Jani Haywood Specimen adequacy: Comment Normal [facility] Comment on above: Result Comment: Sati sfactory for evaluation. Endocervical and/or squamous metaplastic cells (endocervical component) are present. Performed at: WB Performed By: #### [id number] #### [facility] [address] [place] [address] Dr. Jani Haywood Vital Signs Date Time Vital Sign Value Performing Clinician Facility 07-30-2023 09:32-0500 Body mass index (BMI) [Ratio] 25.88 kg/m2 [place] Work Phone: [facility] 07-30-2023 09:32-0500 Body weight 66.28 kg Ivan Pollo DO Work Phone: [facility] 07-30-2023 09:32-0500 Diastolic blood pressure 60 mm[Hg] Ivan Pollo DO Work Phone: [facility] 07-30-2023 09:32-0500 Systolic blood pressure 100 mm[Hg] Ivan Pollo DO Work Phone: [facility] 07-23-2023 14:33-0500 Body mass index (BMI) [Ratio] 26.24 kg/m2 Terese REYES Work Phone: [facility] 07-23-2023 14:33-0500 Body weight 67.19 kg Terese REYES Work Phone: [facility] 07-23-2023 14:33-0500 Diastolic blood pressure 68 mm[Hg] Terese REYES Work Phone: [facility] 07-23-2023 14:33-0500 Systolic blood pressure 110 mm[Hg] Terese REYES Work Phone: [facility] 11-24-2021 14:10-0400 Body height 160.02 cm Megan Sorensenault Other [employer] Other 11-24-2021 14:10-0400 Body mass index (BMI) [Ratio] 20.55 kg/m2 Megan Sorensenault Other [employer] Other 11-24-2021 14:10-0400 Body temperature 96.9 [degF] Megan Sorensenault Other [employer] Other 11-24-2021 14:10-0400 Body weight 52.62 kg Megan Sorensenault Other [employer] Other 11-24-2021 14:10-0400 SaO2% (BldA) [Mass fraction] 97 % Megan Sorensenault Other [employer] Other Encounters Encounter Date Encounter Type Care Provider Facility Start: 08-27-2023 End: 08-27-2023 ambulatory IVAN POLLO Not Available Start: 08-20-2023 End: 08-20-2023 ambulatory IVAN POLLO Not Available Start: 08-13-2023 End: 08-13-2023 ambulatory IVAN POLLO Not Available Start: 07-30-2023 End: 07-30-2023 ambulatory IVAN POLLO Not Available Start: 07-30-2023 End: 07-30-2023 flow sheet Ivan Pollo DO Work Phone: [facility] Comment on above: Third trimester preg luan; Small for gestational age (SGA) Start: 07-23-2023 End: 07-23-2023 ambulatory TERESE AGUILA Not Available Start: 07-23-2023 End: 07-23-2023 flow sheet Terese Aguila PA Work Phone: [facility] Comment on above: Low blood pressure r eading; Dizziness; Feeling faint; Third trimester Start: 07-21-2023 End: 07-21-2023 ambulatory YULISSA JAIME Facility:[facility] Start: 07-15-2023 End: 07-15-2023 ambulatory TERESE AGUILA Not Available Start: 07-01-2023 End: 07-01-2023 ambulatory IVAN ABAD Not Available Start: 06-18-2023 End: 06-18-2023 ambulatory TERESE AGUILA Not Available Start: 05-20-2023 End: 05-20-2023 ambulatory IVAN ABAD Not Available Start: 10-10-2022 Telephone encounter Leo Huitrononnell [facility] [place] Comment on above: 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 Start: 10-09-2022 ambulatory Yulissa Jaime AUD Work Phone: Audiology Start: 09-24-2022 End: 09-24-2022 ambulatory RIMMA STERLING Facility:[facility] Start: 09-24-2022 End: 09-24-2022 Patient encounter procedure Rimma Sterling PAAnuradha Work Phone: Otolaryngology Comment on above: Cochlear implant in place (Primary Dx); Sensorineural hearing loss, asymmetrical; Sensorineural hearing loss, bilateral Start: 07-29-2022 End: 07-30-[address] ARIEL RAJAN Facility:[facility] Start: 07-18-2022 End: 07-18-[address] ROSA CAMPOS Facility:[facility] Start: 07-17-2022 Encounter for preprocedural laboratory examination DR ROAS CAMPOS [facility] Start: 07-16-2022 End: 07-17-[address] ROSA CAMPOS Facility:[facility] Start: 07-16-2022 End: 07-17-2022 Encounter for preprocedural laboratory examination DR ROSA CAMPOS Facility:[facility] Start: 07-02-2022 End: 07-03-[address] ROSA CAMPOS Facility:[facility] Start: 06-18-2022 End: 06-19-[address] ROSA CAMPOS Facility:[facility] Start: 11-27-2021 End: 11-27-[address] ROSA CAMPOS Facility:[facility] Start: 11-24-2021 End: 11-24-2021 ambulatory eMgan Oconnor Other [employer] Other Start: 11-24-2021 Office outpatient vi sit [...] (3 - PPSV23 if available, else PCV20) [facility] Start: 04-22-2028 Screening for malign ant neoplasm of cervix [facility] Start: 04-26-2024 End: 04-26-2024 Patient encounter procedure 04/26/2024 9:00 AM EST Office Visit [facility] [address] [place] [address] Ivan Abad, DO [address] [place] [address] [facility] Start: 08-13-2023 End: 08-13-2023 Patient encounter procedure 08/13/2023 11:20 AM EST Routine [facility] [address] [place] [address] Ivan Abad DO [address] [place] [address] [facility] Start: 07-30-2023 End: 07-30-2024 US biophysical profile w non stress test US biophysical profile w non stress test Imaging Routine Small for gestational age (SGA) Expected: 07/30/2023 (Approximate), Expires: 07/30/2024 [facility] Work Phone: Comment on above: Expected: 07/30/2023 (Approximate), Expires: 07/30/2024 Start: 07-30-2023 End: 07-30-2023 Patient encounter procedure 07/30/2023 9:20 AM EST Routine [facility] [address] [place] [address] Ivan Abad, [address] [place] [address] [facility] Start: 07-23-2023 End: 07-23-2023 Professional / ancillary services management 07/23/2023 3:00 PM EST Ancillary Procedure [facility] [address] [place] [id number] [facility] Start: 02-20-2023 Influenza vaccination C [facility] Start: 06-22-2022 DEPRESSION ASSESSMENT DEPRESSION ASS ESSMENT [facility] Start: 10-20-2021 COVID-19 VACCINE (3 - Booster for Pfizer series) COVID-19 VACCINE (3 - Booster for Pfizer series) [facility] Start: 2019 Mammography MAMMOGRAM [facility] Start: 2019 Screening for malign ant neoplasm of breast Mammogram [facility] Start: 11-17-2009 HPV TESTING HPV TESTING [facility] Start: 11-17-2000 PAP TESTING PAP TESTING [facility] Start: 11-17-1998 Urine microalbumin profile DTAP,TDAP,TD (1 - Tdap) [facility] Start: 11-17-1997 HEPATITIS C SCREENING HEPATITIS C SC JOSE [facility] Start: 11-17-1997 HIV SCREENING HIV SCREENING [facility] Start: 1980 HEPATITIS B (1 of 3 - 3-dose series) HEPATITIS B (1 of 3 - 3-dose series) [facility] Immunizations Immunization Date Immunization Notes Care Provider Fa cili 03-22-2020 influenza virus vacc ine, unspecified formulation Terese REYES Work Phone: [facility] 08-13-2017 pneumococcal polysaccharide vaccine, 23 valent Rimma Sterling PA-C Work Phone: [facility] 08-10-2014 pneumococcal conjuga te vaccine, 13 valent Rimma Sterling PA-C Work Phone: [facility] Payers Date Payer Category Payer Unknown [id number] 2022 Unknown [id number] 1980 Unknown [id number] 2.16.84 [id number] 1979 Unknown [id number] 2.16.84 0.1.551151.3.579.2.593 1979 Unknown [id number] 2.16.84 0.1.700595.3.579.2.593 1979 Unknown [id number] 2.16.84 0.1.185580.3.579.2.593 1979 Unknown [id number] 2.16.84 0.1.642958.3.579.2.593 1979 Unknown [id number] 2.16.84 0.1.132719.3.579.2.593 1979 Unknown [id number] 2.16.84 0.1.701862.3.579.2.593 1979 Unknown [id number] 2.16.84 0.1.936348.3.579.2.1258 1979 Unknown [id number] 2.16.84 0.1.527664.3.579.2.1258 1979 Unknown [id number] 2.16.84 0.1.336337.3.579.2.1258 1979 Unknown [id number] 2.16.84 0.1.691906.3.579.2.1258 1979 Unknown [id number] 2.16.84 0.1.486356.3.579.2.1258 1979 Unknown [id number] 2.16.84 0.1.613944.3.579.2.1258 1979 Unknown [id number] 2.16.84 0.1.406217.3.579.2.1258 1979 Unknown [id number] 2.16.840 .1.649613.3.579.2.1258 1979 Unknown [id number] 2.16.840 .1.480005.3.579.2.9 1959 [facility] [id number] [id number] Unknown [id number] 2.16.84 0.1.676156.3.579.2.593 Social History Date Type Detail Facility Start: 03-16-2023 Sex Assigned At [employer] Other Start: 09-24-2022 End: 03-16-2023 Tobacco smoking status [facility] Never smoked tobacco [facility] Start: 09-24-2022 End: 03-16-2023 Tobacco use and exposure Smokeless tobacco non-user [facility] Start: 09-24-2022 Alcohol intake Current non-drinker of alcohol (finding) [facility] Start: 1980 Sex Assigned At Female [facility] Start: 07-23-2023 End: 07-30-2023 Alcohol intake Ex-drinker (finding) [facility] Start: 03-16-2023 History of Social function [facility] Start: 04-22-2023 Alcohol Comment occasional alcohol use, Caffeine intake: none [facility] Start: 12-25-2022 [facility] Start: 01-21-2023 Gender identity Identifies as female gender (finding) [facility] Start: 01-21-2023 Sexual orientation Heterosexual (finding) [facility] Medical Equipment Procedure Code Equipment Code Equipment Original Text Equipment Identifier Dates [id number] Implant - [id number] Start: 09-02-2017 Comment on above: Description: NUCLEUS SOUND PROCESSORS Goals Date Patient Goal Desired Activity /State Personal health goal Clinical Notes 11-24-2021 to 07-30-2023 Ivan Abad, DO - 07/30/2023 9:20 AM ERIC [facility] 07-[facility]-2023 Note HNO ID: [id number] Author: YULISSA JAIME AUD Service: ? Author Type: Tissue Specialist Type: Progress Notes Filed: 07/21/2023 08:47 Note Text: [facility] [place] [facility] COCHLEAR IMPLANT ADULT PROGRAMMING Name: Amy ALFARO [facility]#: [id number] Date of Service: July 21, 2023 Date of : 1980 Age: [age] year old COCHLEAR IMPLANT INFORMATION (see below for all device details) Updated: July 21, 2023 Right ear: Phonak Audeo [employer]ITE Hearing Aid that was fit at an outside facility (November 2021) and is being managed by that facility. Left ear: External Processor: Cochlear Dualog [id number] (Nucleus 8; upgraded around January 2023) Processor SN: [id number] Processor ([id number]) SN: [id number] Magnet strength: 2 Internal Device: Cochlear CI532 Profile with Slim Modiolar Electrode Array Internal Device SN: [id number] Inactive electrodes: None Surgery Date: 09/02/2017 Initial [...] 6; Sensitivity: 12) before programming. See the CodeRyteForm Audiogram for obtained thresholds. Speech perception testing was completed at 60 filtering machine tender helper using recorded stimuli in the sound field at 0 degrees azimuth. NOTE: The contralateral ear was not plugged and muffed during testing. The following testing and results were obtained: Mtactwuny-Bsgndkk-Lurwzuuza Words (CNC) Test Condition List # Phonemes [...] * Revie (more content not included)... [facility] 10-10-2022 Miscellaneous Notes Sports Physical Therapist: Katerina Mina Patient: Hasmukh Alfaro 1980 Clinic: [facility] Tissue Specialist: Dr. Yulissa Jaime Appointment Length: 45 Minutes What are you looking to accomplish?: I d like to learn more about the Nucleus 8 and the process of upgrading Recipient's Stated Reason for Upgrading Clinic Request - Tissue Specialist recommended it [employer] - Processor more [...] steps are Acquisition Methods Recipient will receive Orh-gu-Kvcovw cost estimate once order placed Next Steps If recipient decides to move forward with pursuing a Nucleus 8 upgrade and provides us with the necessary order information, we will start an order on their behalf. You will hear from Cochlear s Track Surfacing Machine Operator team, via email/DocuSign to gain your approval or regarding an LMN to allow this patient to move forward in the process. Following completion of the upgrade process, I will invite the recipient to schedule time for a complimentary onboarding with our [employer] team so they can begin to maximize the use of their new Cochlear equipment. documented in this encounter [facility] 10-09-2022 Note HNO ID: [id number] Author: ISRAEL Champion Service: ? Author Type: Tissue Specialist Type: Progress Notes Filed: 10/09/2022 12:58 PM [...] any questions. Upgrade Consultation Clinic Patient Report Sports Physical Therapist: Katerina Mina Patient: Hasmukh Alfaro 1980 Clinic: [facility] Tissue Specialist: Dr. Yulissa Jaime Appointment Length: 45 Minutes What are you looking to accomplish?: I?d like to learn more about the Nucleus 8 and the process of upgrading Recipient's Stated Reason for Upgrading ? Clinic Request - Tissue Specialist recommended it ? [employer] - Processor [...] are Acquisition Methods ? Recipient will receive Rdz-yh-Xlpwgw cost estimate once order placed Next Steps ? If recipient decides to move forward with pursuing a Nucleus 8 upgrade and provides us with the necessary order information, we will start an order on their behalf. You will hear from Cochlear?s Track Surfacing Machine Operator team, via email/DocuSign to gain your approval or regarding an LMN to allow this patient to move forward in the process. Following completion of the upgrade process, I will invite the recipient to schedule time for a complimentary onboarding with our [employer] team so they can begin to maximize the use of their new Cochlear equipment. Warm Regards, Eloisa Vazquez, [facility]/A Clinical Tissue Specialist [facility] 10-09-2022 History of Presen t illness [...] any questions. Upgrade Consultation Clinic Patient Report Sports Physical Therapist: Katerina Mina Patient: Hasmukh Alfaro 1980 Clinic: [facility] Tissue Specialist: Dr. Yulissa Jaime Appointment Length: 45 Minutes What are you looking to accomplish?: I d like to learn more about the Nucleus 8 and the process of upgrading Recipient's Stated Reason for Upgrading Clinic Request - Tissue Specialist recommended it [employer] - Processor more [...] steps are Acquisition Methods Recipient will receive Bum-yz-Vcpszn cost estimate once order placed Next Steps If recipient decides to move forward with pursuing a Nucleus 8 upgrade and provides us with the necessary order information, we will start an order on their behalf. You will hear from Cochlear s Track Surfacing Machine Operator team, via email/DocuSign to gain your approval or regarding an LMN to allow this patient to move forward in the process. Following completion of the upgrade process, I will invite the recipient to schedule time for a complimentary onboarding with our [employer] team so they can begin to maximize the use of their new Cochlear equipment. Warm Regards, Eloisa Vazquez, GIOVANNY/A Clinical Tissue Specialist documented in this encounter [facility] 09-24-2022 Note HNO ID: [id number] Author: Rimma Sterling PA-C Service: ? Author Type: Physician Rn Family Practice Type: Progress Notes Filed: 09/24/2022 9:53 AM Note Text: History of Present Illness Ms. AMY ALFARO is a 41 year old year old female presenting for: referred by SELF And is a patient of DO Abel Card DO [address] [id number] Communication will be via the electronic record [...] (FLONASE) 50 mcg/actuation nasal spray Use 1 Randlett in each nostril as needed. multivitamin (DAILY [...] Decision Making Level: 2 - Straightforward [facility] 09-24-2022 Instructions Rimma Sterling PA-C - 09/24/2022 9:[address] Audra Umanzor use his name on paperwork documented in this encounter [facility] 09-24-2022 History of Presen t illness Narrative History of Present Illness Ms. AMY ALFARO is a 41 year old year old female presenting for: referred by SELF And is a patient of DO Abel Card DO [address] [place] [address] Communication will be via the electronic record [...] (FLONASE) 50 mcg/actuation nasal spray Use 1 Randlett in each nostril as needed. multivitamin (DAILY [...] 2 - Straightforward documented in this encounter [facility] 07-18-2022 Note EXAMINATION: US PELV IS HISTORY: Surgical procedure COMPARISON: Ultrasound less than 14 weeks 07/16/2022 TECHNIQUE: Transabdominal and transvaginal sonographic examination. FINDINGS: Final images show an empty endometrial cavity. IMPRESSION: 1. No appreciable products of conception within endometrial cavity following dilation and curettage. Electronically authenticated by: ALEXI BRANCH Date: 2022-07-18 08:21 [facility] 11-24-2021 Evaluation note Encounter Date [...] Fungal rash of trunk (ICD-10 - B36.9) [employer] Other Evaluation note* Diagnosis Cochlear implant in place- Primary Other postprocedural status Sensorineural hearing loss, asymmetrical Sensorineural hearing loss, bilateral [facility] Low blood pressure reading [...] Surgical History cochlear implant Surgical History D&C [employer] Other Summary Purpose Family History No Family History Records FoundNo Family History Records FoundNo Family History Records Found Advance Directives No Advanced Directives Records FoundNo Advanced Directives Records FoundNo Advanced Directives Records Found Additional Source Comments REASON FOR VISIT (unrecogniz ed section and content) Reason Comments Hearing Loss New. Self referral. CI LT side. Last audio 03/18/22. Denies otalgia and otorrhea. Reason Comments Deck Engineer - Other Reason Comments Dizziness Hypotension Reason Comments Routine Visit INFORMATION SOURCE (unrecogn ized section and content) DATE CREATED AUTHOR 07/30/2022 [facility] DATE CREATED AUTHOR AUTHOR'S ORGANIZ ATION 07/22/2023 [facility] DATE CREATED AUTHOR AUTHOR'S ORGANIZ ATION 08/28/2023 [facility] dicmi Specialists EPIC Source Comments (unrecognize d section and content) In the event this informatio n is protected by the Federal Confidentiality of Alcohol and Drug Abuse Patient Records regulations: The Federal rules restrict any use of the information to criminally investigate or prosecute any alcohol or drug abuse patient.[facility] the event this information is protected by the Federal Confidentiality of Alcohol and Drug Abuse Patient Records regulations: The Federal rules restrict any use of the information to criminally investigate or prosecute any alcohol or drug abuse patient.[facility] the event this information is protected by the Federal Confidentiality of Alcohol and Drug Abuse Patient Records regulations: The Federal rules restrict any use of the information to criminally investigate or prosecute any alcohol or drug abuse patient.[facility] Care Teams (unrecognized sec tion and content) Power Plant Technician Relationship Specialty Start Date End Date Abel Sun PCP - General Family Medicine 03/15/14 Power Plant Technician Relationship Specialty Start Date End Date Abel Sun PCP - General Family Medicine 03/15/14 Power Plant Technician Relationship Specialty Start Date End Date Abel Sun PCP - General [facility] 03/15/14 Power Plant Technician Relationship Specialty Start Date End Date Ariel Rajan MD [address] [place] [address] PCP - General 02/16/23 Power Plant Technician Relationship Specialty Start Date End Date Ariel Rajan MD [address] [place] [address] [facility] 02/16/23 FOR RECORDS PERTAINING TO PATIENTS WHO [...] THE PRIMARY CLINICAL RECORDS. [facility] [employer] [facility]. provides no warranty or guarantee of the accuracy or completeness of information in this document.
[2023-09-01 08:26] VITALS: BP 98/53; PULSE 54
== END 2023-09-01 09:00 | disposition home or self-care (01) ==
LOC: US 07:36 → FBC 07:58
PROVIDERS: PCP Family Medicine; Visit Provider Obstetrics & Gynecology
DX: O26.843 Uterine size-date discrepancy, third trimester (principal); Z3A.37 37 weeks gestation of pregnancy
CPT/HCPCS: 76818

== ENCOUNTER 2023-09-04 07:05 | Outpatient (OUT) | payer OTHER, SELFPAY ==
--- OUTSIDE RECORDS SUMMARY | 2023-09-04 07:25 | XMS_ITS | CCD ---
Author Name Unknown Address [address] [place] [address] Organization [facility] Care Team Providers Care Tow Operator Name Role Phone Megan Oconnor Unavailable ANDRES, [...] Unavailab Ariel Rich MD Primary Care Provider [phone] MINGO, TERESE Attending Unavailable POLLO, IVAN Attending Unavailable TERESE AGUILA Attending Unavailable MINGO, TERESE Attending Unavailable POLLO, IVAN Attending Unavailable POLLO, IVAN Attending Unavailable POLLO, IVAN Attending Unavailable POLLO, IVAN Attending Unavailable POLLO, IVAN Attending Unavailable Allergies Allergy Classification Reported Allergen(s) Allergy Type Date of Onset Reaction(s) Facility (4 sources) Seasonal allergy; Translations: [SEASONAL ALLERGIES] Allergy to substance 4 Cough [facility] (4 sources) Octacosanol Drug Allergy 4 Cough [facility] (4 sources) Other Propensity to adverse reactions 3 Unknown [facility] Medications Current Medications Medication Drug Class(es) Dates Sig (Normalized) Sig (Original) [id number] 200 actuat albuterol 0.09 mg/actuat metered dose [...] on above: Take 1 capsule by mo [facility] as needed. fluticasone propionate 0.05 mg/actuat metered dose nasal spray (3 sources) Corticosteroid fluticasone (FLONASE) 50 mcg/actuation nasal spray Indications: Bilateral sensorineural hearing loss , Autoimmune disorder of inner ear Use 1 [place] in each nostril as needed. 0 Active Comment on above: Use 1 [place] in each nostril as needed. LOW-DOSE ASPIRIN [...] low weight; and growth retardation (2 sources) Flqnk-kwq-sypxg baby; Translations: [ small for gestational age, [...] UA Negative Negative - 4(70) +++ mg/dL [facility] Blood, UA Positive Negative - 50 Bobby/mcL [facility] Comment on above: trace-intact Clarity, UA Clear [facility] re Color, UA Yellow [facility] e Glucose, UA Negative Negative - 1999(110) ++++ mg/dL [facility] Interpretation and review of laboratory results Abnormal [facility] Ketones, UA Negative Negative - 160(16) ++++ mg/dL [facility] Leukocytes, UA Positive Negative - 500+++ Suzette/mcL [facility] Comment on above: small Nitrite, UA Negative Negative - Positive [facility] pH, UA 6.0 5 - 9 formerly [facility] e Protein, UA Negative Negative - 1999(20) ++++ mg/dL [facility] Spec Grav, UA 1.010 1 - 1.03 [facility] Urobilinogen, UA 0.2 0.2 - 12 mg/dL [facility] Urinalysis macro (dipstick) panel (U)on 07-23-2023 Bilirubin, UA Negative Negative - 4(70) +++ mg/dL [facility] Blood, UA Negative Negative - 50 Bobby/mcL [facility] Clarity, UA Clear [facility] re Color, UA Yellow [facility] Glucose, UA Negative Negative - 1999(110) ++++ mg/dL [facility] Interpretation and review of laboratory results Abnormal [facility] Ketones, UA Negative Negative - 160(16) ++++ mg/dL [facility] Leukocytes, UA Positive Negative - 500+++ Suzette/mcL [facility] Comment on above: small Nitrite, UA Negative Negative - Positive [facility] pH, UA 7.0 5 - 9 [facility] Protein, UA Negative Negative - 1999(20) ++++ mg/dL [facility] Spec Grav, UA 1.015 1 - 1.03 [facility] Urobilinogen, UA 0.2 0.2 - 12 mg[facility]dL [facility]23 CNOV Office Visit (OTAUCR ) AMY ALFARO ([id number]) 1980 F Date Time Provider Department 07/21/23 7:30 AM YULISSA JAIME During your visit today, we recorded the following information about you: Yulissa Jaime AUD 07/21/2023 8:47 AM Signed [facility] COCHLEAR IMPLANT ADULT PROGRAMMING Name: Amy ALFARO CC#: [id number] Date of Service: July 21, 2023 Date of : 1980 Age: [age] year old COCHLEAR IMPLANT INFORMATION (see below for all device details) Updated: July 21, 2023 Right ear: Phonak Audeo RITE Hearing Aid that was fit at an outside facility (November 2021) and is being managed by that facility. 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 NOTE: The contralateral ear was not plugged and muffed during testing. The following testing and results were obtained: Idqartrgn-Meacxvx-Vrp sonant Words (CNC) Test Condition List # [...] Shoul (more content not included)... Normal [facility] CNPJosefina 10-10-2022 CNPN Telephone (HNQ) AMY ALFARO ([id number]) 1980 F Date Time Provider Department 10/10/22 LEO ATKINSON During your visit today, we recorded the following information about you: Leo Atkinson 10/10/2022 3:52 PM Signed Microelectronics Assembler: Katerina Mina Patient: Hasmukh Alfaro 1980 Clinic: [facility] Director Data Management: Dr. Yulissa Jaime Appointment Length: 45 Minutes What are you looking to accomplish?: I?d like to learn more about the Nucleus 8 and the process of upgrading Recipient's Stated Reason for Upgrading ? Clinic Request - Director Data Management recommended it ? Useful Life - Processor [...] are Acquisition Methods ? Recipient will receive Jud-pg-[id number] cost estimate once order placed Next Steps ? If recipient decides to move forward with pursuing a Nucleus 8 upgrade and provides us with the necessary order information, we will start an order on their behalf. 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 - fluticasone (FLONASE) 50 mcg/actuation nasal spray Use 1 [place] in each nostril as needed. - multivitamin [...] Encounter Status:Closed by LEO ATKINSON on 10/10/22 [facility] CNOVon 09-24-2022 CNOV Office Visit (OTOLCR ) AMY ALFARO ([id number]) 1980 F Date Time Provider Department 09/24/22 9:30 AM RIMMA STERLING OTVIDAL During your visit today, we recorded the following information about you: Rimma Sterling PA-C 09/24/2022 9:53 AM Signed History of Present Illness Ms. AMY ALFARO is a 41 year old year old female presenting for: referred by SELF And is a patient of DO Abel Card DO [address] [id number] Communication will be via the electronic record [...] (FLONASE) 50 mcg/actuation nasal spray Use 1 [place] in each nostril as needed. multivitamin (DAILY [...] 1 (more content not included)... Normal [facility] CBC AUTO DIFFon 07-29-2022 BASO # 0.0 103/ul Normal 0.0-0.1 [facility] Comment on above: Performed By: #### C BC #### [facility] [address] [place] [address] Dr. Jani Haywood Basophils/100 WBC (Bld) 0.6 % Normal 0.2-2.0 [facility] Comment on above: Performed By: #### C BC #### [facility] [address] [place] [address] Dr. Jani Haywood EO # 0.1 103/ul Normal 0.0-0.7 [facility] Comment on above: Performed By: #### C BC #### [facility] [address] [place] [address] Dr. Jani Haywood Eosinophils/100 WBC (Bld) 2.5 % Normal 0.9-7.0 [facility] Comment on above: Performed By: #### C BC #### [facility] [address] [place] [address] Dr. Jani Haywood Erythrocyte distribution width (RBC) [Ratio] 13.7 % Normal 11.0-15.0 [facility] Comment on above: Performed By: #### C BC #### [facility] [address] [place] [address] Dr. Jani Haywood Hematocrit (Bld) [Volume fraction] 40.3 % Normal 36.0-48.0 [facility] Comment on above: Performed By: #### C BC #### [facility] [address] [place] [address] Dr. Jani Haywood Hemoglobin (Bld) [Mass/Vol] 12.7 g/dL Normal 12.0-16.0 [facility] Comment on above: Performed By: #### C BC #### [facility] [address] [place] [address] Dr. Jani Haywood IG # 0.01 10e3/ul Normal 0.00-0.03 [facility] Comment on above: Performed By: #### C BC #### [facility] [address] [place] [address] Dr. Jani Haywood IG % 0.2 % Normal 0.0-0.5 [facility] Comment on above: Performed By: #### C BC #### [facility] [address] [place] [address] Dr. Jani Haywood LYMPH # 1.8 103/ul Normal 1.2-3.8 [facility] Comment on above: Performed By: #### C BC #### [facility] [address] [place] [address] Dr. Jani Haywood Lymphocytes/100 WBC (Bld) 35.2 % Normal 20.5-60.0 [facility] Comment on above: Performed By: #### C BC #### [facility] [address] [place] [address] Dr. Jani Haywood MANUAL DIFF REQ NO Normal [facility] Comment on above: Performed By: #### C BC #### [facility] [address] [place] [address] Dr. Jani Haywood MCH (RBC) [Entitic mass] 30.5 pg Normal 26.7-34.0 [facility] Comment on above: Performed By: #### C BC #### [facility] [address] [place] [address] Dr. Jani Haywood MCHC (RBC) [Mass/Vol] 31.5 g/dL Normal 29.9-35.2 [facility] Comment on above: Performed By: #### C BC #### [facility] [address] [place] [address] Dr. Jani Haywood MCV (RBC) [Entitic vol] 96.9 fL Normal 81.0-99.0 [facility] Comment on above: Performed By: #### C BC #### [facility] [address] [place] [address] Dr. Jani Haywood MONO # 0.4 103/ul Normal 0.3-0.8 [facility] Comment on above: Performed By: #### C BC #### [facility] [address] [place] [address] Dr. Jani Haywood Monocytes/100 WBC (Bld) 8.1 % Normal 1.7-12.0 [facility] Comment on above: Performed By: #### C BC #### [facility] [address] [place] [address] Dr. Jani Haywood NEUT # 2.8 103/ul Normal 1.4-6.5 [facility] Comment on above: Performed By: #### C BC #### [facility] [address] [place] [address] Dr. Jani Haywood Neutrophils/100 WBC (Bld) 53.4 % Normal 43.0-75.0 [facility] Comment on above: Performed By: #### C BC #### [facility] [address] [place] [address] Dr. Jani Haywood Platelet mean volume (Bld) [Entitic vol] 10.0 fL Normal 9.5-13.5 [facility] Comment on above: Performed By: #### C BC #### [facility] [address] [place] [address] Dr. Jani Haywood PLT 271 103/ul Normal 150-450 [facility] Comment on above: Performed By: #### C BC #### [facility] [address] [place] [address] Dr. Jani Haywood RBC 4.16 106/ul Critically low 4.20-5.40 [facility] Comment on above: Performed By: #### C BC #### [facility] [address] [place] [address] Dr. Jani Haywood WBC 5.2 103/ul Normal 4.0-11.0 [facility] Comment on above: Performed By: #### C BC #### [facility] [address] [place] [address] Dr. Jani Haywood IRONon 07-29-2022 Iron [Mass/Vol] 64.0 ug/dL Normal 50.0-170.0 [facility] Comment on above: Performed By: #### A 1C #### [facility] [address] [place] [address] Dr. Jani Haywood PROF 14(COMP METB)on 023 Albumin [Mass/Vol] 3.5 g/dL Normal 3.4-5.0 [facility] Comment on above: Performed By: #### C MP #### [facility] [address] [place] [address] Dr. Jani Haywood Albumin/Globulin [Mass ratio] 0.9 {ratio} Normal [facility] Comment on above: Performed By: #### C MP #### [facility] [address] [address] [address] Jani Haywood ALP [Catalytic activity/Vol] 73 U/L Normal 46-116 [facility] Comment on above: Performed By: #### C MP #### [facility] [address] [address] [address] Jani Haywood ALT [Catalytic activity/Vol] 12 U/L Critically low 14-59 [facility] Comment on above: Performed By: #### C MP #### [facility] [address] [place] [address] Dr. Jani Haywood Anion gap [Moles/Vol] 11.0 mmol/L Normal [facility] Comment on above: Performed By: #### C MP #### [facility] [address] [place] [address] Dr. Jani Haywood AST [Catalytic activity/Vol] 13 U/L Critically low 15-37 [facility] Comment on above: Performed By: #### C MP #### [facility] [address] [place] [address] Dr. Jani Haywood Bilirubin [Mass/Vol] 0.5 mg/dL Normal 0.2-1.0 [facility] Comment on above: Performed By: #### C MP #### [facility] [address] [address] [address] Jani Haywood Calcium [Mass/Vol] 8.6 mg/dL Normal 8.5-10.1 [facility] Comment on above: Performed By: #### C MP #### [facility] [address] [address] [address] Jani Haywood Chloride [Moles/Vol] 105 mmol/L Normal 98-107 [facility] Comment on above: Performed By: #### C MP #### [facility] [address] [address] [address] Jani Haywood CO2 [Moles/Vol] 28.8 mmol/L Normal 21.0-32.0 [facility] Comment on above: Performed By: #### C MP #### [facility] [address] [address] [address] Jani Haywood Creatinine [Mass/Vol] 0.87 mg/dL Normal 0.55-1.02 [facility] Comment on above: Performed By: #### C MP #### [facility] [address] [address] [address] Jani Haywood EGFR-AF ANDORRAN >60 Normal >=60 [facility] Comment on above: Performed By: #### C MP #### [facility] [address] [address] [address] Jani Haywood EGFR-NON AF ANDORRAN >60 Normal >=60 [facility] Comment on above: Performed By: #### C MP #### [facility] [address] [place] [address] Dr. Jani Haywood Globulin (S) [Mass/Vol] 3.7 g/dL Normal [facility] Comment on above: Performed By: #### C MP #### [facility] [address] [place] [address] Dr. Jani Haywood Glucose [Mass/Vol] 95 mg/dL Normal 74-[address] [facility] Comment on above: Performed By: #### C MP #### [facility] [address] [place] [address] Dr. Jani Haywood Potassium [Moles/Vol] 3.8 mmol/L Normal 3.5-5.1 [facility] Comment on above: Performed By: #### C MP #### [facility] [address] [place] [address] Dr. Jani Haywood Protein [Mass/Vol] 7.2 g/dL Normal 6.4-8.[address] [facility] Comment on above: Performed By: #### C MP #### [facility] [address] [address] [address] Jani Haywood Sodium [Moles/Vol] 141 mmol/L Normal 136-[address] [facility] Comment on above: Performed By: #### C MP #### [facility] [address] [place], [place] [address] Dr. Jani Haywood Urea nitrogen [Mass/Vol] 12.0 mg/dL Normal 7.0-18.0 [facility] Comment on above: Performed By: #### C MP #### [facility] [address] [place], [place] [address] Dr. Jani Haywood Urea nitrogen/Creatinine [Mass ratio] 13.8 mg/mg Normal [facility] Comment on above: Performed By: #### C MP #### [facility] [address] [place], [place] [address] Dr. Jani Haywood Covid-19 PCR ([facility])on 06-23 SARS-CoV-2 (COVID-19) RNA CAROLE+probe Ql (Unsp spec) Not detected Normal NOT DETECTED [facility] Comment on above: Result Comment: This test is not yet approved or cleared by the [place] FDA. When there are no FDA-approved or cleared tests available, and other criteria are met, FDA can make tests available under an emergency access mechanism called an Emergency Use Authorization (EUA). The EUA for this test is supported by the [employer] of Health and Human Service's (HHS's) declaration [...] #### C VDTB #### [facility] [address] [id number] Jani Haywood US PREG <14 WKSon [...] was notified of these findings by the solar resource assessor at time of imaging. Electronically authenticated by: ALEXI BRANCH Date: 2022-07-16 13:36 Normal [facility] HEP B SURFACE ANTIGEN SCREEN on 07-03-2022 HBsAg Screen Negative Normal Negative [facility] Comment on above: Performed By: #### A 1C #### [facility] [address] [place] [address] Dr. Jani Haywood HEPATITIS C VIRUS AB W/ REFL EX QUANTon 07-03-2022 HCV AB <0.1 Normal 0.0-0.9 [facility] Comment on above: Performed By: #### H CVPCRR #### [facility] [address] [place] [address] Dr. Jani Haywood Interpretation: Comment Normal [facility] Comment on above: Result Comment: Nega tive Not infected with HCV, unless recent infection is suspected or other evidence exists to indicate HCV infection. Performed By: #### H CVPCRR #### [facility] [address] [address] [address] Jani Haywood HIV 1 AND 2 WITH REFLEXon HIV Screen 4th Generation wRfx Non-Reactive Normal Non Reactive [facility] Comment on above: Result Comment: HIV Negative HIV-1/HIV-2 antibodies and HIV-1 p24 antigen were NOT detected. There is no laboratory evidence of HIV infection. Performed By: #### H IV12 #### [facility] [address] [place] [address] Dr. Jani Haywood RPR QUANTon 07-03-2022 Rapid Plasma Reagin, Quant Non-Reactive Normal NonRea<1:1 [facility] Comment on above: Result Comment: Plea se Note: This test does not meet current guidelines for screening and diagnosis of syphilis. This test is intended for following treatment response in patients being treated for syphilis infection. To screen for syphilis infection, a reflex cascade that includes both RPR and a treponema-specific assay should be utilized, such as Treponema pallidum (Syphilis) Screening [place] (329923) or Rapid Plasma Reagin (RPR) Test With Reflex to Quantitative RPR and Confirmatory Treponema pallidum Antibodies (879990). Performed By: #### R PRQ #### [facility] [address] [place] [address] Dr. Jani Haywood RUBELLA AB IGGon 07-03-2022 Rubella Antibodies, IgG 2.92 index Normal Immune >0.99 [facility] Comment on above: Result Comment: Non- immune <0.90 Equivocal 0.90 - 0.99 Immune >0.99 Performed By: #### A 1C #### [facility] [address] [place] [address] Dr. Jani Haywood CBC AUTO DIFFon 07-02-2022 BASO # 0.1 103/ul Normal 0.0-0.1 [facility] Comment on above: Performed By: #### C BC #### [facility] [address] [place] [address] Dr. Jani Haywood Basophils/100 WBC (Bld) 0.7 % Normal 0.2-2.0 [facility] Comment on above: Performed By: #### C BC #### [facility] [address] [place] [address] Dr. Jani Haywood EO # 0.1 103/ul Normal 0.0-0.7 [facility] Comment on above: Performed By: #### C BC #### [facility] [address] [place] [address] Dr. Jani Haywood Eosinophils/100 WBC (Bld) 1.2 % Normal 0.9-7.0 [facility] Comment on above: Performed By: #### C BC #### [facility] [address] [place] [address] Dr. Jani Haywood Erythrocyte distribution width (RBC) [Ratio] 13.7 % Normal 11.0-15.0 [facility] Comment on above: Performed By: #### C BC #### [facility] [address] [place] [address] Dr. Jani Haywood Hematocrit (Bld) [Volume fraction] 37.9 % Normal 36.0-48.0 [facility] Comment on above: Performed By: #### C BC #### [facility] [address] [place] [address] Dr. Jani Haywood Hemoglobin (Bld) [Mass/Vol] 12.6 g/dL Normal 12.0-16.0 [facility] Comment on above: Performed By: #### C BC #### [facility] [address] [place] [address] Dr. Jani Haywood IG # 0.02 10e3/ul Normal 0.00-0.03 [facility] Comment on above: Performed By: #### C BC #### [facility] [address] [place] [address] Dr. Jani Haywood IG % 0.3 % Normal 0.0-0.5 [facility] Comment on above: Performed By: #### C BC #### [facility] [address] [place] [address] Dr. Jani Haywood LYMPH # 1.6 103/ul Normal 1.2-3.8 [facility] Comment on above: Performed By: #### C BC #### [facility] [address] [place] [address] Dr. Jani Haywood Lymphocytes/100 WBC (Bld) 21.5 % Normal 20.5-60.0 [facility] Comment on above: Performed By: #### C BC #### [facility] [address] [place] [address] Dr. Jani Haywood MANUAL DIFF REQ NO Normal [facility] Comment on above: Performed By: #### C BC #### [facility] [address] [place] [address] Dr. Jani Haywood MCH (RBC) [Entitic mass] 30.4 pg Normal 26.7-34.0 [facility] Comment on above: Performed By: #### C BC #### [facility] [address] [address] [address] Jani Haywood MCHC (RBC) [Mass/Vol] 33.2 g/dL Normal 29.9-35.2 [facility] Comment on above: Performed By: #### C BC #### [facility] [address] [address] [address] Jani Haywood MCV (RBC) [Entitic vol] 91.3 fL Normal 81.0-99.0 [facility] Comment on above: Performed By: #### C BC #### [facility] [address] [place] [address] Dr. Jani Haywood MONO # 0.5 103/ul Normal 0.3-0.8 [facility] Comment on above: Performed By: #### C BC #### [facility] [address] [place] [address] Dr. Jani Haywood Monocytes/100 WBC (Bld) 6.6 % Normal 1.7-12.0 [facility] Comment on above: Performed By: #### C BC #### [facility] [address] [place] [address] Dr. Jani Haywood NEUT # 5.1 103/ul Normal 1.4-6.5 [facility] Comment on above: Performed By: #### C BC #### [facility] [address] [place] [address] Dr. Jani Haywood Neutrophils/100 WBC (Bld) 69.7 % Normal 43.0-75.0 [facility] Comment on above: Performed By: #### C BC #### [facility] [address] [address] [address] Jani Haywood Platelet mean volume (Bld) [Entitic vol] 10.2 fL Normal 9.5-13.5 [facility] Comment on above: Performed By: #### C BC #### [facility] [address] [place] [address] Dr. Jani Haywood PLT 281 103/ul Normal 150-450 [facility] Comment on above: Performed By: #### C BC #### [facility] [address] [address] [address] Jani Haywood RBC 4.15 106/ul Critically low 4.20-5.40 [facility] Comment on above: Performed By: #### C BC #### [facility] [address] [place] [address] Dr. Jani Haywood WBC 7.3 103/ul Normal 4.0-11.0 [facility] Comment on above: Performed By: #### C BC #### [facility] [address] [place] [address] Dr. Jani Haywood GLYCOHEMOGLOBIN A1Con 2022 ADA RECOMMENDATION SEE BELOW Normal [facility] Comment on above: Result Comment: ADA RECOMMENDED LIMIT 4.0 - 6.0 ADA THERAPEUTIC TARGET < 7.0 ACTION SUGGESTED > 7.0 Performed By: #### A 1C #### [facility] [address] [place] [address] Dr. Jani Haywood Glucose [Mass/Vol] 103 mg/dL Normal [facility] Comment on above: Performed By: #### A 1C #### [facility] [address] [place] [address] Dr. Jani Haywood HbA1c (Bld) [Mass fraction] 5.2 % Normal 4.5-6.2 [facility] Comment on above: Performed By: #### A 1C #### [facility] [address] [place] [address] Dr. Jani Haywood CRISTELA BOX TEST PT SEND OUTo n 07-02-2022 SENT TO REF LAB 07/02/2022 Normal [facility] Comment on above: Performed By: #### N BOX #### [facility] [address] [place] [address] Dr. Jani Haywood TYPE AND SCREENon 07-02-2022 TYPE AND SCREEN Negative Normal [facility] Comment on above: Performed By: #### A 1C #### [facility] [address] [place] [address] Dr. Jani Haywood US PREG TVon 06-18-2022 [...] BATRES Date: 2022-06-18 16:09 Normal [facility] PAP ACOG PANEL 2: 30 to 65on 12-03-2021 . . Normal [facility] Comment on above: Result Comment: Perf ormed at: WB Performed By: #### [id number] #### [facility] [address] [place] [address] Dr. Jani Haywood Age Gdln ACOG Testing 29- [facility] Comment on above: Performed By: #### [id number] #### [facility] [address] [place] [address] Dr. Jani Haywood DIAGNOSIS: Comment Normal [facility] Comment on above: Result Comment: NEGA TIVE FOR INTRAEPITHELIAL LESION OR MALIGNANCY. Performed at: WB Performed By: #### [id number] #### [facility] [address] [place] [address] Dr. Jani Haywood HPV Aptima Negative Normal Negative [facility] Comment on above: Result Comment: This nucleic acid amplification test detects fourteen high-risk HPV types (16,18,31,33,35,39,45,51,52,56,58,59,66,68) without differentiation. Performed at: =G Performed By: #### [id number] #### [facility] [address] [place] [address] Dr. Jani Haywood Methodology: Comment Normal [facility] Comment on above: Result Comment: This liquid based ThinPrep(R) pap test was screened with the use of an image guided system. Performed at: WB Performed By: #### [id number] #### [facility] [address] [place] [address] Dr. Jani Haywood Note: Comment Normal [facility] Comment on above: Result Comment: The Pap smear is a screening test designed to aid in the detection of premalignant and malignant conditions of the uterine cervix. It is not a diagnostic procedure and should not be used as the sole means of detecting cervical cancer. Both false-positive and false-negative reports do occur. . Performed at: WB Performed By: #### [id number] #### [facility] [address] [address] [address] Jani Haywood Performed by: Comment Normal [facility] Comment on above: Result Comment: Nikki Schwab, Neuropsychiatric Aide (ASCP) Performed at: WB Performed By: #### 4 [id number] #### [facility] [address] [place] [address] Dr. Jani Haywood Specimen adequacy: Comment Normal [facility] Comment on above: Result Comment: Sati sfactory for evaluation. Endocervical and/or squamous metaplastic cells (endocervical component) are present. Performed at: WB Performed By: #### [id number] #### [facility] [address] [place] [address] Dr. Jani Haywood Vital Signs Date Time Vital Sign Value Performing Clinician Facility 07-30-2023 09:32-0500 Body mass index (BMI) [Ratio] 25.88 kg/m2 [employer] Work Phone: [facility] 07-30-2023 09:32-0500 Body weight 66.28 kg Ivan Pollo DO Work Phone: [facility] 07-30-2023 09:32-0500 Diastolic blood pressure 60 mm[Hg] Ivan Pollo DO Work Phone: [facility] 07-30-2023 09:32-0500 Systolic blood pressure 100 mm[Hg] Ivan Pollo DO Work Phone: [facility] 07-23-2023 14:33-0500 Body mass index (BMI) [Ratio] 26.24 kg/m2 Terese REYES Work Phone: [facility] 07-23-2023 14:33-0500 Body weight 67.19 kg Terese REYES Work Phone: [facility] 07-23-2023 14:33-0500 Diastolic blood pressure 68 mm[Hg] Terese REYES Work Phone: [facility] 07-23-2023 14:33-0500 Systolic blood pressure 110 mm[Hg] Terese REYES Work Phone: [facility] 11-24-2021 14:10-0400 Body height 160.02 cm Megan Sorensenault Other [facility] Other 11-24-2021 14:10-0400 Body mass index (BMI) [Ratio] 20.55 kg/m2 Megan Sorensenault Other [facility] Other 11-24-2021 14:10-0400 Body temperature 96.9 [degF] Megan Sorensenault Other [facility] Other 11-24-2021 14:10-0400 Body weight 52.62 kg Megan Sorensenault Other [facility] Other 11-24-2021 14:10-0400 SaO2% (BldA) [Mass fraction] 97 % Megan Sorensenault Other [facility] Other Encounters Encounter Date Encounter Type Care [...] Start: 07-21-2023 End: 07-21-2023 ambulatory YULISSA JAIME Facility:[facility] Start: 07-15-2023 End: 07-15-2023 ambulatory TERESE AGUILA Not Available Start: 07-01-2023 End: 07-01-2023 ambulatory IVAN ABAD Not Available Start: 06-18-2023 End: 06-18-2023 ambulatory TERESE AGUILA Not Available Start: 05-20-2023 End: 05-20-2023 ambulatory IVAN ABAD Not Available Start: 10-10-2022 Telephone encounter Leo Huitrononnell [facility] 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 Start: 10-09-2022 ambulatory Yulissa Jaime AUD Work Phone: Audiology Start: 09-24-2022 End: 09-24-2022 ambulatory RIMMA STERLING Facility:[facility] Start: 09-24-2022 End: 09-24-2022 Patient encounter procedure Rimma Sterling PAAnuradha Work Phone: Otolaryngology Comment on above: Cochlear implant in place (Primary Dx); Sensorineural hearing loss, asymmetrical; Sensorineural hearing loss, bilateral Start: 07-29-2022 End: 07-30-[address] ARIEL RAJAN Facility:[facility] Start: 07-18-2022 End: 07-18-[address] ROSA CAMPOS Facility:[facility] Start: 07-17-2022 Encounter for preprocedural laboratory examination DR ROSA CAMPOS [facility] Start: 07-16-2022 End: 07-17-[address] ROSA CAMPOS Facility:[facility] Start: 07-16-2022 End: 07-17-2022 Encounter for preprocedural laboratory examination DR ROSA CAMPOS Facility:[facility] Start: 07-02-2022 End: 07-03-[address] ROSA CAMPOS Facility:[facility] Start: 06-18-2022 End: 06-19-[address] ROSA CAMPOS Facility:[facility] Start: 11-27-2021 End: 11-27-[address] ROSA CAMPOS Facility:[facility] Start: 11-24-2021 End: 11-24-2021 ambulatory Megan Oconnor Other [facility] Other Start: 11-24-2021 Office outpatient vi sit [...] (3 - PPSV23 if available, else PCV20) [facility] Start: 04-22-2028 Screening for malign ant neoplasm of cervix [facility] Start: 04-26-2024 End: 04-26-2024 Patient encounter procedure 04/26/2024 9:00 AM EST Office Visit [facility] [address] [place] [address] Ivan Abad, DO [address] [place] [address] [facility] Start: 08-13-2023 End: 08-13-2023 Patient encounter procedure 08/13/2023 11:20 AM EST Routine [facility] [address] [place] [address] Ivan Abad DO [address] [place] [address] [facility] Start: 07-30-2023 End: 07-30-2024 US biophysical profile w non stress test US biophysical profile w non stress test Imaging Routine Small for gestational age (SGA) Expected: 07/30/2023 (Approximate), Expires: 07/30/2024 [facility] Work Phone: Comment on above: Expected: 07/30/2023 (Approximate), Expires: 07/30/2024 Start: 07-30-2023 End: 07-30-2023 Patient encounter procedure 07/30/2023 9:20 AM EST Routine [facility] [address] [place] [id number] Ivan Abad, [address] [place] [address] [facility] Start: 07-23-2023 End: 07-23-2023 Professional / ancillary services management 07/23/2023 3:00 PM EST Ancillary Procedure [facility] [address] [place] [id number] [facility] Start: 02-20-2023 Influenza vaccination C [facility] Start: 06-22-2022 DEPRESSION ASSESSMENT DEPRESSION ASS ESSMENT [facility] Start: 10-20-2021 COVID-19 VACCINE (3 - Booster for Pfizer series) COVID-19 VACCINE (3 - Booster for Pfizer series) [facility] Start: 2019 Mammography MAMMOGRAM [facility] Start: 2019 Screening for malign ant neoplasm of breast Mammogram [facility] Start: 11-17-2009 HPV TESTING HPV TESTING [facility] Start: 11-17-2000 PAP TESTING PAP TESTING [facility] Start: 11-17-1998 Urine microalbumin profile DTAP,TDAP,TD (1 - Tdap) [facility] Start: 11-17-1997 HEPATITIS C SCREENING HEPATITIS C SC JOSE [facility] Start: 11-17-1997 HIV SCREENING HIV SCREENING [facility] Start: 1980 HEPATITIS B (1 of 3 - 3-dose series) HEPATITIS B (1 of 3 - 3-dose series) [facility] Immunizations Immunization Date Immunization Notes Care Provider Fa cili 03-22-2020 influenza virus vacc ine, unspecified formulation Terese REYES Work Phone: [facility] 08-13-2017 pneumococcal polysaccharide vaccine, 23 valent Rimma Sterling PA-C Work Phone: [facility] 08-10-2014 pneumococcal conjuga te vaccine, 13 valent Rimma Sterling PA-C Work Phone: [facility] Payers Date Payer Category Payer Unknown [id number] 2022 Unknown [id number] 1980 Unknown [id number] 2.16.84 [id number] 1979 Unknown [id number] 2.16.84 0.1.841730.3.579.2.593 1979 Unknown [id number] 2.16.84 0.1.700616.3.579.2.593 1979 Unknown [id number] 2.16.84 0.1.625841.3.579.2.593 1979 Unknown [id number] 2.16.84 0.1.515013.3.579.2.593 1979 Unknown [id number] 2.16.84 0.1.177967.3.579.2.593 1979 Unknown [id number] 2.16.84 0.1.102350.3.579.2.593 1979 Unknown [id number] 2.16.84 0.1.313506.3.579.2.1258 1979 Unknown [id number] 2.16.84 0.1.463810.3.579.2.1258 1979 Unknown [id number] 2.16.84 0.1.815301.3.579.2.1258 1979 Unknown [id number] 2.16.84 0.1.845705.3.579.2.1258 1979 Unknown [id number] 2.16.84 0.1.903814.3.579.2.1258 1979 Unknown [id number] 2.16.84 0.1.822589.3.579.2.1258 1979 Unknown [id number] 2.16.84 0.1.768121.3.579.2.1258 1979 Unknown [id number] 2.16.840 .1.084281.3.579.2.1258 1979 Unknown [id number] 2.16.840 .1.363904.3.579.2.9 1959 [facility] [id number] 2.16.840.1.102525.19 Unknown [id number] 2.16.84 0.1.197450.3.579.2.593 Social History Date Type Detail Facility Start: 03-16-2023 Sex Assigned At [facility] Other Start: 09-24-2022 End: 03-16-2023 Tobacco smoking status [facility] Never smoked tobacco [facility] Start: 09-24-2022 End: 03-16-2023 Tobacco use and exposure Smokeless tobacco non-user [facility] Start: 09-24-2022 Alcohol intake Current non-drinker of alcohol (finding) [facility] Start: 1980 Sex Assigned At Female [facility] Start: 07-23-2023 End: 07-30-2023 Alcohol intake Ex-drinker (finding) [facility] Start: 03-16-2023 History of Social function [facility] Start: 04-22-2023 Alcohol Comment occasional alcohol use, Caffeine intake: none [facility] Start: 12-25-2022 [facility] Start: 01-21-2023 Gender identity Identifies as female gender (finding) [facility] Start: 01-21-2023 Sexual orientation Heterosexual (finding) [facility] Medical Equipment Procedure Code Equipment Code Equipment Original Text Equipment Identifier Dates Ebe-Mv-Y-Kind Implant - [id number] Start: 09-02-2017 Comment on above: Description: [...] Ivan Abad DO documented in this encounter [facility] 07-23-2023 History of Presen t [...] of: ERIC Smallwood documented in this encounter [facility] 07-21-2023 Note HNO ID: [id number] Author: YULISSA JAIME AUD Service: ? Author Type: Director Data Management Type: Progress Notes Filed: 07/21/2023 08:47 Note Text: [facility] COCHLEAR IMPLANT ADULT PROGRAMMING Name: Amy ALFARO [facility]#: [id number] Date of Service: July 21, 2023 Date of : 1980 Age: [age] year old COCHLEAR IMPLANT INFORMATION (see below for all device details) Updated: July 21, 2023 Right ear: Phonak Audeo [employer] Hearing Aid that was fit at an outside facility (November 2021) and is being managed by that facility. Left ear: External Processor: Cochlear [employer] [id number] (Nucleus 8; upgraded around January 2023) Processor SN: [id number] Processor ([id number]) SN: [id number] Magnet strength: 2 Internal Device: Cochlear CI532 Profile with Slim Modiolar Electrode Array Internal Device SN: [id number] Inactive electrodes: None Surgery Date: 09/02/2017 Initial [...] 6; Sensitivity: 12) before programming. See the [employer] Audiogram for obtained thresholds. Speech perception testing was completed at 60 office machine servicer apprentice using recorded stimuli in the sound field at 0 degrees azimuth. NOTE: The contralateral ear was not plugged and muffed during testing. The following testing and results were obtained: Rhyziwacl-Jrpeaim-Jkkcthjlj Words (CNC) Test Condition List # Phonemes [...] hours. * Revie (more content not included)... [facility] 10-10-2022 Miscellaneous Notes Microelectronics Assembler: Katerina Mina Patient: Hasmukh Alfaro 1980 Clinic: [facility] Director Data Management: Dr. Yulissa Jaime Appointment Length: 45 Minutes What are you looking to accomplish?: I d like to learn more about the Nucleus 8 and the process of upgrading Recipient's Stated Reason for Upgrading Clinic Request - Director Data Management recommended it [employer] - Processor more [...] steps are Acquisition Methods Recipient will receive Olp-as-Nlecqt cost estimate once order placed Next Steps If recipient decides to move forward with pursuing a Nucleus 8 upgrade and provides us with the necessary order information, we will start an order on their behalf. You will hear from Cochlear s Photoresist Printer team, via email/DocuSign to gain your approval or regarding an LMN to allow this patient to move forward in the process. Following completion of the upgrade process, I will invite the recipient to schedule time for a complimentary onboarding with our [employer] team so they can begin to maximize the use of their new Cochlear equipment. documented in this encounter [facility] 10-09-2022 Note HNO ID: [id number] Author: ISRAEL Champion Service: ? Author Type: Director Data Management Type: Progress Notes Filed: 10/09/2022 12:58 PM [...] any questions. Upgrade Consultation Clinic Patient Report Microelectronics Assembler: Katerina Mina Patient: Hasmukh Alfaro 1980 Clinic: [facility] Director Data Management: Dr. Yulissa Jaime Appointment Length: 45 Minutes What are you looking to accomplish?: I?d like to learn more about the Nucleus 8 and the process of upgrading Recipient's Stated Reason for Upgrading ? Clinic Request - Director Data Management recommended it ? [employer] - Processor [...] are Acquisition Methods ? Recipient will receive Srn-mu-Nonfhe cost estimate once order placed Next Steps ? If recipient decides to move forward with pursuing a Nucleus 8 upgrade and provides us with the necessary order information, we will start an order on their behalf. You will hear from Cochlear?s Photoresist Printer team, via email/DocuSign to gain your approval or regarding an LMN to allow this patient to move forward in the process. Following completion of the upgrade process, I will invite the recipient to schedule time for a complimentary onboarding with our [employer] team so they can begin to maximize the use of their new Cochlear equipment. Warm Regards, Eloisa Vazquez, [facility]/A Clinical Director Data Management [facility] 10-09-2022 History of Presen t illness [...] any questions. Upgrade Consultation Clinic Patient Report Microelectronics Assembler: Katerina Mina Patient: Hasmukh Alfaro 1980 Clinic: [facility] Director Data Management: Dr. Yulissa Jaime Appointment Length: 45 Minutes What are you looking to accomplish?: I d like to learn more about the Nucleus 8 and the process of upgrading Recipient's Stated Reason for Upgrading Clinic Request - Director Data Management recommended it [employer] - Processor more [...] steps are Acquisition Methods Recipient will receive Wjd-ta-Huntki cost estimate once order placed Next Steps If recipient decides to move forward with pursuing a Nucleus 8 upgrade and provides us with the necessary order information, we will start an order on their behalf. You will hear from Cochlear s Photoresist Printer team, via email/DocuSign to gain your approval or regarding an LMN to allow this patient to move forward in the process. Following completion of the upgrade process, I will invite the recipient to schedule time for a complimentary onboarding with our [employer] team so they can begin to maximize the use of their new Cochlear equipment. Warm Regards, Eloisa Vazquez, [facility]/A Clinical Director Data Management documented in this encounter [facility] 09-24-2022 Note HNO ID: [id number] Author: Rimma Sterling PA-C Service: ? Author Type: Physician Vp Training Type: Progress Notes Filed: 09/24/2022 9:53 AM Note Text: History of Present Illness Ms. AMY ALFARO is a 41 year old year old female presenting for: referred by SELF And is a patient of DO Abel Card DO [address] [id number] Communication will be via the electronic record [...] (FLONASE) 50 mcg/actuation nasal spray Use 1 [place] in each nostril as needed. multivitamin (DAILY [...] Decision Making Level: 2 - Straightforward [facility] 09-24-2022 Instructions Rimma Sterling PA-C - 09/24/2022 9:[address] Audra Umanzor use his name on paperwork documented in this encounter [facility] 09-24-2022 History of Presen t illness Narrative History of Present Illness Ms. AMY ALFARO is a 41 year old year old female presenting for: referred by SELF And is a patient of DO Abel Card DO [address] [place] [address] Communication will be via the electronic record [...] (FLONASE) 50 mcg/actuation nasal spray Use 1 [place] in each nostril as needed. multivitamin (DAILY [...] 2 - Straightforward documented in this encounter [facility] 07-18-2022 Note EXAMINATION: US PELV IS HISTORY: Surgical procedure COMPARISON: Ultrasound less than 14 weeks 07/16/2022 TECHNIQUE: Transabdominal and transvaginal sonographic examination. FINDINGS: Final images show an empty endometrial cavity. IMPRESSION: 1. No appreciable products of conception within endometrial cavity following dilation and curettage. Electronically authenticated by: ALEXI BRANCH Date: 2022-07-18 08:21 [facility] 11-24-2021 Evaluation note Encounter Date Diagnosis [...] Fungal rash of trunk (ICD-10 - B36.9) [facility] Other Evaluation note* Diagnosis Cochlear implant in place- Primary Other postprocedural status Sensorineural hearing loss, asymmetrical Sensorineural hearing loss, bilateral [facility] Low blood pressure [...] Surgical History cochlear implant Surgical History D&C [facility] Other Summary Purpose Family History No Family History Records FoundNo Family History Records FoundNo Family History Records Found Advance Directives No Advanced Directives Records FoundNo Advanced Directives Records FoundNo Advanced Directives Records Found Additional Source Comments REASON FOR VISIT (unrecogniz ed section and content) Reason Comments Hearing Loss New. Self referral. CI LT side. Last audio 03/18/22. Denies otalgia and otorrhea. 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 - Other Reason Comments Dizziness Hypotension Reason Comments Routine Visit INFORMATION SOURCE (unrecogn ized section and content) DATE CREATED AUTHOR 07/30/2022 [facility] DATE CREATED AUTHOR AUTHOR'S ORGANIZ ATION 07/22/2023 [facility] DATE CREATED AUTHOR AUTHOR'S ORGANIZ ATION 08/28/2023 [facility] EPIC Source Comments (unrecognize d section and content) In the event this informatio n is protected by the Federal Confidentiality of Alcohol and Drug Abuse Patient Records regulations: The Federal rules restrict any use of the information to criminally investigate or prosecute any alcohol or drug abuse patient.[facility] the event this information is protected by the Federal Confidentiality of Alcohol and Drug Abuse Patient Records regulations: The Federal rules restrict any use of the information to criminally investigate or prosecute any alcohol or drug abuse patient.[facility] the event this information is protected by the Federal Confidentiality of Alcohol and Drug Abuse Patient Records regulations: The Federal rules restrict any use of the information to criminally investigate or prosecute any alcohol or drug abuse patient.[facility] Care Teams (unrecognized sec tion and content) Tow Operator Relationship Specialty Start Date End Date Abel Sun PCP - General Family Medicine 03/15/14 Tow Operator Relationship Specialty Start Date End Date Abel Sun PCP - General Family Medicine 03/15/14 Tow Operator Relationship Specialty Start Date End Date Abel Sun PCP - General [facility] 03/15/14 Tow Operator Relationship Specialty Start Date End Date Ariel Rajan MD [address] [place] [address] PCP - General 02/16/23 Tow Operator Relationship Specialty Start Date End Date Ariel Rajan MD [address] [place] [address] [facility] 02/16/23 FOR RECORDS PERTAINING TO PATIENTS [...] BE BASED ON THE PRIMARY CLINICAL RECORDS. [facility]. provides no warranty or guarantee of the accuracy or completeness of information in this document.
[2023-09-04 08:02] VITALS: BP 115/59; PULSE 83
== END 2023-09-04 08:25 | disposition home or self-care (01) ==
LOC: FBCO 07:23 → FBC 07:59
PROVIDERS: PCP Family Medicine; Visit Provider Obstetrics & Gynecology
DX: O26.893 Other specified pregnancy related conditions, third trimester (principal)
CPT/HCPCS: 59025

== ENCOUNTER 2023-09-08 09:50 | Inpatient (IN) | payer OTHER, SELFPAY ==
[2023-09-08] VITALS (37 sets, daily range): BP systolic 97–139; BP diastolic 51–93; PULSE 59–95; RESP 16–18; TEMP 36.7–36.8
--- NOTE | 2023-09-08 08:02 | US_ITS ---
[address] [address] Patient Name: HILLARY ALFARO MRN: [id number] date: 1980 Sex: F Assigned Patient Location: [facility] Current Patient Location: [facility] Accession/Order Number: [id number] Exam Date: 09/08/2023 08:06 Report Date: 09/08/2023 09:57 At the request of: IVAN KARIMI Procedure: US OB BPP w non-stress EXAMINATION: US OB BPP w non-stress HISTORY: Small for gestational age P05.10 COMPARISON: No relevant comparison available. TECHNIQUE: Ultrasound biophysical profile was performed in the radiology department. non-reactive stress testing was performed by nursing staff in the birthing center. FINDINGS: BREATHING MOVEMENTS: 2.0 GROSS BODY MOVEMENTS: 2.0 TONE: 2.0 QUALITATIVE AMNIOTIC FLUID VOLUME: 2.0 PRESENTATION: CEPHALIC HEART RATE: 136.4 bpm H.B./min AMNIOTIC FLUID VOLUME: 13.9 cm cm GESTATIONAL AGE: 38 weeks 5 days CONCLUSION: Total biophysical profile score: 8.0 Electronically authenticated by: RIMMA BATRES Date: 09/08/2023 09:57
--- OUTSIDE RECORDS SUMMARY | 2023-09-08 08:03 | XMS_ITS | CCD ---
Author Organization [employer] Care Team Providers Care Import Customer Service Manager Name Role Phone Megan Oconnor Unavailable [...] Unavailable ZIEBER, DR ALEXI Johnson Consulting Unavailable KARAMLOUTHOMAS Consulting Unavailable SHARPZACHARIAH Consulting Unavailable JELLY II, REYNA Consulting Unavailable KARASIK, DR LEE Admitting Unavailable KARASIK, DR LEE Attending Unavailable REQUEST, NONE LISTED Primary Care Unavaila ble KARASIK, DR LEE Consulting Unavailable Abel Sun Primary Care Provider YULISSA JAIME Attending Unavailable ABEL SUN Primary Care Unavailab RIMMA Sutherland Attending Unavailable ABEL SUN Primary Care Unavailab mary Rajan MD, Ariel Loredo Primary Care Provider TERESE AGUILA Attending Unavailable IVAN ABAD Attending Unavailable TERESE AGUILA Attending Unavailable TERESE AGUILA Attending Unavailable POLLO, IVAN Attending Unavailable POLLO, IVAN Attending Unavailable POLLO, IVAN Attending Unavailable POLLO, IVAN Attending Unavailable POLLO, IVAN Attending Unavailable POLLO, IVAN Attending Unavailable Allergies Allergy Classification Reported Allergen(s) Allergy Type Date of Onset Reaction(s) Facility (4 sources) Seasonal allergy; Translations: [SEASONAL ALLERGIES] Allergy to substance 4 Cough [facility] (4 sources) Octacosanol Drug Allergy 4 Cough [facility] (4 sources) Other Propensity to adverse reactions 3 Unknown [facility] Medications Current Medications Medication Drug Class(es) Dates Sig (Normalized) Sig (Original) [id number] 200 actuat albuterol 0.09 mg/actuat metered dose [...] on above: Take 1 tablet by yesika th as needed. famotidine 20 mg oral tablet [...] Autoimmune disorder of inner ear Use 1 [place] in each nostril as needed. 0 Active Comment on above: Use 1 [place] in each nostril as needed. LOW-DOSE ASPIRIN PO (2 sources) Start: 04-02-2023 End: 07-23-2023 LOW-DOSE ASPIRIN PO multivitamin (DAILY MULTIPLE) tablet (3 sources) take 1 tablet by mouth once daily multivitamin (DAILY MULTIPLE) tablet Take 1 tablet by mouth once daily. 0 Active Comment on above: Take 1 tablet by [facility] once daily. predniSONE 10 mg oral [...] low weight; and growth retardation (2 sources) Ferqz-msg-akfdb baby; Translations: [[place] small for gestational age, unspecified weight] 07-30-2023 [...] UA Negative Negative - 4(70) +++ mg/dL [facility] Blood, UA Positive Negative - 50 Bobby/mcL [facility] Comment on above: trace-intact Clarity, UA Clear [facility] re Color, UA Yellow [facility] e Glucose, UA Negative Negative - 1999(110) ++++ mg/dL [facility] Interpretation and review of laboratory results Abnormal [facility] Ketones, UA Negative Negative - 160(16) ++++ mg/dL [facility] Leukocytes, UA Positive Negative - 500+++ Suzette/mcL [facility] Comment on above: small Nitrite, UA Negative Negative - Positive [facility] pH, UA 6.0 5 - 9 [facility] e Protein, UA Negative Negative - 1999(20) ++++ mg/dL [facility] Spec Grav, UA 1.010 1 - 1.03 [facility] care Urobilinogen, UA 0.2 0.2 - 12 mg/dL [facility] Urinalysis macro (dipstick) panel (U)on 07-23-2023 Bilirubin, UA Negative Negative - 4(70) +++ mg/dL [facility] Blood, UA Negative Negative - 50 Bobby/mcL [facility] Clarity, UA Clear [facility] re Color, UA Yellow [facility] Glucose, UA Negative Negative - 1999(110) ++++ mg/dL [facility] Interpretation and review of laboratory results Abnormal [facility] Ketones, UA Negative Negative - 160(16) ++++ mg/dL [facility] Leukocytes, UA Positive Negative - 500+++ Suzette/mcL [facility] Comment on above: small Nitrite, UA Negative Negative - Positive [facility] pH, UA 7.0 5 - 9 [facility] Protein, UA Negative Negative - 1999(20) ++++ mg/dL [facility] Spec Grav, UA 1.015 1 - 1.03 [facility] Urobilinogen, UA 0.2 0.2 - 12 mg/dL [facility] CNOVon 07-21-2023 CNOV Office Visit (OTAUCR ) AMY ALFARO ([id number]) 1980 F Date Time Provider Department 07/21/23 7:30 AM YULISSA JAIME During your visit today, we recorded the following information about you: Yulissa Jaime AUD 07/21/2023 8:47 AM Signed [facility] [place] [facility] [employer]CH[employer]PL[employer] ADULT PROGRAMMING Name: Amy ALFARO CC#: [id number] Date of Service: July 21, 2023 Date of : 1980 Age: [age] year old COCHLEAR IMPLANT INFORMATION (see below for all device details) Updated: July 21, 2023 Right ear: Phonak Audeo RITE Hearing Aid that was fit at an outside facility (November 2021) and is being managed by that facility. Left ear: External Processor: Co[facility] [employer] [id number] (Nucleus 8; upgraded around January 2023) Processor SN: [id number] Processor ([id number]) SN: [id number] Magnet strength: 2 Internal Device: Cochlear [id number] Profile with Slim Modiolar Electrode Array Internal Device SN: [id number] Inactive electrodes: None Surgery Date: 09/02/2017 Initial [...] Speech perception testing was completed at 60 medical laboratory technical officer using recorded stimuli in the sound field at 0 degrees azimuth. NOTE: The contralateral ear was not plugged and muffed during testing. The following testing and results were obtained: Zsctvxflm-Wpuikug-Bkt sonant Words (CNC) Test Condition List # [...] Shoul (more content not included)... Normal [facility] Ada 10-10-2022 CNPN Telephone (HNQ) AMY ALFARO ([id number]) 1980 F Date Time Provider Department 10/10/22 CHINALEO MARIIA During your visit today, we recorded the following information about you: Leo China 10/10/2022 3:52 PM Signed Window Covering Sales Consultant: Katerina Mina Patient: Hasmukh Alfaro 1980 Clinic: [facility] Prototyper: Dr. Yulissa Jaime Appointment Length: 45 Minutes What are you looking to accomplish?: I?d like to learn more about the Nucleus 8 and the process of upgrading Recipient's Stated Reason for Upgrading ? Clinic Request - Prototyper recommended it ? [employer] - Processor [...] are Acquisition Methods ? Recipient will receive Bhj-rt-Pcvukh cost estimate once order placed Next Steps ? If recipient decides to move forward with pursuing a Nucleus 8 upgrade and provides us with the necessary order information, we will start an order on their behalf. 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 - fluticasone (FLONASE) 50 mcg/actuation nasal spray Use 1 [place] in each nostril as needed. - multivitamin [...] Encounter Status:Closed by LEO ATKINSON on 10/10/22 [facility] Emily 09-24-2022 CNOV Office Visit (OTOLCR ) AMY ALFARO ([id number]) 1980 F Date Time Provider Department 09/24/22 9:30 AM RIMMA STERLING During your visit today, we recorded the following information about you: Rimma Sterling PA-C 09/24/2022 9:53 AM Signed History of Present Illness Ms. AMY ALFARO is a 41 year old year old female presenting for: referred by SELF And is a patient of DO Abel Card DO [address] [place] [address] Communication will be via the electronic record [...] (FLONASE) 50 mcg/actuation nasal spray Use 1 [place] in each nostril as needed. multivitamin (DAILY [...] 1 (more content not included)... Normal [facility] CBC AUTO DIFFon 07-29-2022 BASO # 0.0 103/ul Normal 0.0-0.1 [facility] Comment on above: Performed By: #### C BC #### [facility] [address] [place] [address] Dr. Jani Haywood Basophils/100 WBC (Bld) 0.6 % Normal 0.2-2.0 [facility] Comment on above: Performed By: #### C BC #### [facility] [address] [place] [address] Dr. Jani Haywood EO # 0.1 103/ul Normal 0.0-0.7 [facility] Comment on above: Performed By: #### C BC #### [facility] [address] [place] [address] Dr. Jani Haywood Eosinophils/100 WBC (Bld) 2.5 % Normal 0.9-7.0 [facility] Comment on above: Performed By: #### C BC #### [facility] [address] [place] [address] Dr. Jani Haywood Erythrocyte distribution width (RBC) [Ratio] 13.7 % Normal 11.0-15.0 [facility] Comment on above: Performed By: #### C BC #### [facility] [address] [place] [address] Dr. Jani Haywood Hematocrit (Bld) [Volume fraction] 40.3 % Normal 36.0-48.0 [facility] Comment on above: Performed By: #### C BC #### [facility] [address] [place] [address] Dr. Jani Haywood Hemoglobin (Bld) [Mass/Vol] 12.7 g/dL Normal 12.0-16.0 [facility] Comment on above: Performed By: #### C BC #### [facility] [address] [place] [address] Dr. Jani Haywood IG # 0.01 10e3/ul Normal 0.00-0.03 [facility] Comment on above: Performed By: #### C BC #### [facility] [address] [place] [address] Dr. Jani Haywood IG % 0.2 % Normal 0.0-0.5 [facility] Comment on above: Performed By: #### C BC #### [facility] [address] [place] [address] Dr. Jani Haywood LYMPH # 1.8 103/ul Normal 1.2-3.8 [facility] Comment on above: Performed By: #### C BC #### [facility] [address] [place] [address] Dr. Jani Haywood Lymphocytes/100 WBC (Bld) 35.2 % Normal 20.5-60.0 [facility] Comment on above: Performed By: #### C BC #### [facility] [address] [place] [address] Dr. Jani Haywood MANUAL DIFF REQ NO Normal [facility] Comment on above: Performed By: #### C BC #### [facility] [address] [place] [address] Dr. Jani Haywood MCH (RBC) [Entitic mass] 30.5 pg Normal 26.7-34.0 [facility] Comment on above: Performed By: #### C BC #### [facility] [address] [place] [address] Dr. Jani Haywood MCHC (RBC) [Mass/Vol] 31.5 g/dL Normal 29.9-35.2 [facility] Comment on above: Performed By: #### C BC #### [facility] [address] [place] [address] Dr. Jani Haywood MCV (RBC) [Entitic vol] 96.9 fL Normal 81.0-99.0 [facility] Comment on above: Performed By: #### C BC #### [facility] [address] [place] [address] Dr. Jani Haywood MONO # 0.4 103/ul Normal 0.3-0.8 [facility] Comment on above: Performed By: #### C BC #### [facility] [address] [place] [address] Dr. Jani Haywood Monocytes/100 WBC (Bld) 8.1 % Normal 1.7-12.0 [facility] Comment on above: Performed By: #### C BC #### [facility] [address] [place] [address] Dr. Jani Haywood NEUT # 2.8 103/ul Normal 1.4-6.5 [facility] Comment on above: Performed By: #### C BC #### [facility] [address] [address] [address] Jani Haywood Neutrophils/100 WBC (Bld) 53.4 % Normal 43.0-75.0 [facility] Comment on above: Performed By: #### C BC #### [facility] [address] [address] [address] Jani Haywood Platelet mean volume (Bld) [Entitic vol] 10.0 fL Normal 9.5-13.5 [facility] Comment on above: Performed By: #### C BC #### [facility] [address] [address] [address] Jani Haywood PLT 271 103/ul Normal 150-450 [facility] Comment on above: Performed By: #### C BC #### [facility] [address] [place] [address] Dr. Jani Haywood RBC 4.16 106/ul Critically low 4.20-5.40 [facility] Comment on above: Performed By: #### C BC #### [facility] [address] [address] [address] Jani Haywood WBC 5.2 103/ul Normal 4.0-11.0 [facility] Comment on above: Performed By: #### C BC #### [facility] [address] [place] [address] Dr. Jani Haywood IRONon 07-29-2022 Iron [Mass/Vol] 64.0 ug/dL Normal 50.0-170.0 [facility] Comment on above: Performed By: #### A 1C #### [facility] [address] [place] [address] Dr. Jani Haywood PROF 14(COMP METB)on 023 Albumin [Mass/Vol] 3.5 g/dL Normal 3.4-5.0 [facility] Comment on above: Performed By: #### C MP #### [facility] [address] [place] [address] Dr. Jani Haywood Albumin/Globulin [Mass ratio] 0.9 {ratio} Normal [facility] Comment on above: Performed By: #### C MP #### [facility] [address] [address] [address] Jani Haywood ALP [Catalytic activity/Vol] 73 U/L Normal 46-116 [facility] Comment on above: Performed By: #### C MP #### [facility] [address] [address] [address] Jani Haywood ALT [Catalytic activity/Vol] 12 U/L Critically low 14-59 [facility] Comment on above: Performed By: #### C MP #### [facility] [address] [address] [address] Jani Haywood Anion gap [Moles/Vol] 11.0 mmol/L Normal [facility] Comment on above: Performed By: #### C MP #### [facility] [address] [address] [address] aJni Haywood AST [Catalytic activity/Vol] 13 U/L Critically low 15-37 [facility] Comment on above: Performed By: #### C MP #### [facility] [address] [address] [address] Jani Haywood Bilirubin [Mass/Vol] 0.5 mg/dL Normal 0.2-1.0 [facility] Comment on above: Performed By: #### C MP #### [facility] [address] [address] [address] Jani Haywood Calcium [Mass/Vol] 8.6 mg/dL Normal 8.5-10.1 [facility] Comment on above: Performed By: #### C MP #### [facility] [address] [address] [address] Jani Haywood Chloride [Moles/Vol] 105 mmol/L Normal 98-107 [facility] Comment on above: Performed By: #### C MP #### [facility] [address] [address] [address] Jani Haywood CO2 [Moles/Vol] 28.8 mmol/L Normal 21.0-32.0 [facility] Comment on above: Performed By: #### C MP #### [facility] [address] [address] [address] Jani Haywood Creatinine [Mass/Vol] 0.87 mg/dL Normal 0.55-1.02 [facility] Comment on above: Performed By: #### C MP #### [facility] [address] [address] [address] Jani Haywood EGFR-AF COMORAN >60 Normal >=60 [facility] Comment on above: Performed By: #### C MP #### [facility] [address] [address] [address] Jani Haywood EGFR-NON AF COMORAN >60 Normal >=60 [facility] Comment on above: Performed By: #### C MP #### [facility] [address] [place] [address] Dr. Jani Haywood Globulin (S) [Mass/Vol] 3.7 g/dL Normal [facility] Comment on above: Performed By: #### C MP #### [facility] [address] [place] [address] Dr. Jani Haywood Glucose [Mass/Vol] 95 mg/dL Normal 74-106 [facility] Comment on above: Performed By: #### C MP #### [facility] [address] [place] [address] Dr. Jani Haywood Potassium [Moles/Vol] 3.8 mmol/L Normal 3.5-5.1 [facility] Comment on above: Performed By: #### C MP #### [facility] [address] [place] [address] Dr. Jani Haywood Protein [Mass/Vol] 7.2 g/dL Normal 6.4-8.2 [facility] Comment on above: Performed By: #### C MP #### [facility] [address] [place] [address] Dr. Jani Haywood Sodium [Moles/Vol] 141 mmol/L Normal 136-145 [facility] Comment on above: Performed By: #### C MP #### [facility] [address] [place] [address] Dr. Jani Haywood Urea nitrogen [Mass/Vol] 12.0 mg/dL Normal 7.0-18.0 [facility] Comment on above: Performed By: #### C MP #### [facility] [address] [address] [address] Jani Haywood Urea nitrogen/Creatinine [Mass ratio] 13.8 mg/mg Normal [facility] Comment on above: Performed By: #### C MP #### [facility] [address] [address] [address] Jani Haywood Covid-19 PCR (CVDTB)on 06-23 SARS-CoV-2 (COVID-19) RNA CAROLE+probe Ql (Unsp spec) Not detected Normal NOT DETECTED [facility] Comment on above: Result Comment: This test is not yet approved or cleared by the [place] FDA. When there are no FDA-approved or cleared tests available, and other criteria are met, FDA can make tests available under an emergency access mechanism called an Emergency Use Authorization (EUA). The EUA for this test is supported by the [place] of Health and Human Service's (HHS's) declaration [...] By: #### C VDTB #### [facility] [address] [address] [address] Jani Haywood US PREG <14 WKSon [...] was notified of these findings by the follow up rep at time of imaging. Electronically authenticated by: ALEXI BRANCH Date: 2022-07-16 13:36 Normal [facility] HEP B SURFACE ANTIGEN SCREEN on 07-03-2022 HBsAg Screen Negative Normal Negative [facility] Comment on above: Performed By: #### A 1C #### [facility] [address] [place] [address] Dr. Jani Haywood HEPATITIS C VIRUS AB W/ REFL EX QUANTon 07-03-2022 HCV AB <0.1 Normal 0.0-0.9 [facility] Comment on above: Performed By: #### H CVPCRR #### [facility] [address] [place] [address] Dr. Jani Haywood Interpretation: Comment Normal [facility] Comment on above: Result Comment: Nega tive Not infected with HCV, unless recent infection is suspected or other evidence exists to indicate HCV infection. Performed By: #### H CVPCRR #### [facility] [address] [place] [address] Dr. Jani Haywood HIV 1 AND 2 WITH REFLEXon HIV Screen 4th Generation wRfx Non-Reactive Normal Non Reactive [facility] Comment on above: Result Comment: HIV Negative HIV-1/HIV-2 antibodies and HIV-1 p24 antigen were NOT detected. There is no laboratory evidence of HIV infection. Performed By: #### H IV12 #### [facility] [address] [place] [address] Dr. Jani Haywood RPR QUANTon 07-03-2022 Rapid Plasma Reagin, Quant Non-Reactive Normal NonRea<1:1 [facility] Comment on above: Result Comment: Plea se Note: This test does not meet current guidelines for screening and diagnosis of syphilis. This test is intended for following treatment response in patients being treated for syphilis infection. To screen for syphilis infection, a reflex cascade that includes both RPR and a treponema-specific assay should be utilized, such as Treponema pallidum (Syphilis) Screening [place] (735641) or Rapid Plasma Reagin (RPR) Test With Reflex to Quantitative RPR and Confirmatory Treponema pallidum Antibodies (746580). Performed By: #### R PRQ #### [facility] [address] [place] [address] Dr. Jani Haywood RUBELLA AB IGGon 07-03-2022 Rubella Antibodies, IgG 2.92 index Normal Immune >0.99 [facility] Comment on above: Result Comment: Non- immune <0.90 Equivocal 0.90 - 0.99 Immune >0.99 Performed By: #### A 1C #### [facility] [address] [place] [address] Dr. Jani Haywood CBC AUTO DIFFon 07-02-2022 BASO # 0.1 103/ul Normal 0.0-0.1 [facility] Comment on above: Performed By: #### C BC #### [facility] [address] [place] [address] Dr. Jani Haywood Basophils/100 WBC (Bld) 0.7 % Normal 0.2-2.0 [facility] Comment on above: Performed By: #### C BC #### [facility] [address] [place] [address] Dr. Jani Haywood EO # 0.1 103/ul Normal 0.0-0.7 [facility] Comment on above: Performed By: #### C BC #### [facility] [address] [place] [address] Dr. Jani Haywood Eosinophils/100 WBC (Bld) 1.2 % Normal 0.9-7.0 [facility] Comment on above: Performed By: #### C BC #### [facility] [address] [place] [address] Dr. Jani Haywood Erythrocyte distribution width (RBC) [Ratio] 13.7 % Normal 11.0-15.0 [facility] Comment on above: Performed By: #### C BC #### [facility] [address] [address] [address] Jani Haywood Hematocrit (Bld) [Volume fraction] 37.9 % Normal 36.0-48.0 [facility] Comment on above: Performed By: #### C BC #### [facility] [address] [address] [address] Jani Haywood Hemoglobin (Bld) [Mass/Vol] 12.6 g/dL Normal 12.0-16.0 [facility] Comment on above: Performed By: #### C BC #### [facility] [address] [place] [address] Dr. Jani Haywood IG # 0.02 10e3/ul Normal 0.00-0.03 [facility] Comment on above: Performed By: #### C BC #### [facility] [address] [place] [address] Dr. Jani Haywood IG % 0.3 % Normal 0.0-0.5 [facility] Comment on above: Performed By: #### C BC #### [facility] [address] [place] [address] Dr. Jani Haywood LYMPH # 1.6 103/ul Normal 1.2-3.8 [facility] Comment on above: Performed By: #### C BC #### [facility] [address] [place] [address] Dr. Jani Haywood Lymphocytes/100 WBC (Bld) 21.5 % Normal 20.5-60.0 [facility] Comment on above: Performed By: #### C BC #### [facility] [address] [place] [address] Dr. Jani Haywood MANUAL DIFF REQ NO Normal [facility] Comment on above: Performed By: #### C BC #### [facility] [address] [place] [address] Dr. Jani Haywood MCH (RBC) [Entitic mass] 30.4 pg Normal 26.7-34.0 [facility] Comment on above: Performed By: #### C BC #### [facility] [address] [address] [address] Jani Haywood MCHC (RBC) [Mass/Vol] 33.2 g/dL Normal 29.9-35.2 [facility] Comment on above: Performed By: #### C BC #### [facility] [address] [address] [address] Jani Haywood MCV (RBC) [Entitic vol] 91.3 fL Normal 81.0-99.0 The [facility] Comment on above: Performed By: #### C BC #### [facility] [address] [place] [address] Dr. Jani Haywood MONO # 0.5 103/ul Normal 0.3-0.8 [facility] Comment on above: Performed By: #### C BC #### [facility] [address] [place] [address] Dr. Jani Haywood Monocytes/100 WBC (Bld) 6.6 % Normal 1.7-12.0 [facility] Comment on above: Performed By: #### C BC #### [facility] [address] [place] [address] Dr. Jani Haywood NEUT # 5.1 103/ul Normal 1.4-6.5 [facility] Comment on above: Performed By: #### C BC #### [facility] [address] [place] [address] Dr. Jani Haywood Neutrophils/100 WBC (Bld) 69.7 % Normal 43.0-75.0 The [facility] Comment on above: Performed By: #### C BC #### [facility] [address] [place] [address] Dr. Jani Haywood Platelet mean volume (Bld) [Entitic vol] 10.2 fL Normal 9.5-13.5 The [facility] Comment on above: Performed By: #### C BC #### [facility] [address] [place] [address] Dr. Jani Haywood PLT 281 103/ul Normal 150-450 The [facility] Comment on above: Performed By: #### C BC #### [facility] [address] [address] [address] Jani Haywood RBC 4.15 106/ul Critically low 4.20-5.[address] [facility] Comment on above: Performed By: #### C BC #### [facility] [address] [address] [address] Jani Haywood WBC 7.3 103/ul Normal 4.0-11.0 [facility] Comment on above: Performed By: #### C BC #### [facility] [address] [place] [address] Dr. Jani Haywood GLYCOHEMOGLOBIN A1Con 2022 ADA RECOMMENDATION SEE BELOW Normal The [facility] Comment on above: Result Comment: ADA RECOMMENDED LIMIT 4.0 - 6.0 ADA THERAPEUTIC TARGET < 7.0 ACTION SUGGESTED > 7.0 Performed By: #### A 1C #### [facility] [address] [place] [address] Dr. Jani Haywood Glucose [Mass/Vol] 103 mg/dL Normal The [facility] Comment on above: Performed By: #### A 1C #### [facility] [address] [place] [address] Dr. Jani Haywood HbA1c (Bld) [Mass fraction] 5.2 % Normal 4.5-6.2 [facility] Comment on above: Performed By: #### A 1C #### [facility] [address] [place] [address] Dr. Jani Haywood CRISTELA BOX TEST PT SEND OUTo n 07-02-2022 SENT TO REF LAB 07/02/2022 Normal [address] [facility] Comment on above: Performed By: #### N BOX #### [facility] [address] [place] [address] Dr. Jani Haywood TYPE AND SCREENon 07-02-2022 TYPE AND SCREEN Negative Normal The [facility] Comment on above: Performed By: #### A 1C #### [facility] [address] [place] [address] Dr. Jani Haywood US PREG TVon 06-18-2022 [...] by: RIMMA BATRES Date: 2022-06-18 16:09 Normal [facility] PAP ACOG PANEL 2: 30 to 65on 12-03-2021 . . Normal [facility] Comment on above: Result Comment: Perf ormed at: WB Performed By: #### [id number] #### [facility] [address] [place] [address] Dr. Jani Haywood Age Gdln ACOG Testing 30-65 Normal [facility] Comment on above: Performed By: #### [id number] #### [facility] [address] [place] [address] Dr. Jani Haywood DIAGNOSIS: Comment Normal [facility] Comment on above: Result Comment: NEGA TIVE FOR INTRAEPITHELIAL LESION OR MALIGNANCY. Performed at: WB Performed By: #### [id number] #### [facility] [address] [place] [address] Dr. Jani Haywood HPV Aptima Negative Normal Negative [facility] Comment on above: Result Comment: This nucleic acid amplification test detects fourteen high-risk HPV types (16,18,31,33,35,39,45,51,52,56,58,59,66,68) without differentiation. Performed at: =G Performed By: #### [id number] #### [facility] [address] [address] [address] Jani Haywood Methodology: Comment Normal [facility] Comment on above: Result Comment: This liquid based ThinPrep(R) pap test was screened with the use of an image guided system. Performed at: WB Performed By: #### [id number] #### [facility] [address] [place] [address] Dr. Jani Haywood Note: Comment [facility] Comment on above: Result Comment: The Pap smear is a screening test designed to aid in the detection of premalignant and malignant conditions of the uterine cervix. It is not a diagnostic procedure and should not be used as the sole means of detecting cervical cancer. Both false-positive and false-negative reports do occur. . Performed at: WB Performed By: #### [id number] #### [facility] [address] [address] [address] Jani Haywood Performed by: Comment Normal The [facility] Comment on above: Result Comment: Nikki Schwab, Digital Print Operator (ASCP) Performed at: WB Performed By: #### [id number] #### [facility] [address] [address] [address] Jani Haywood Specimen adequacy: Comment Normal [facility] Comment on above: Result Comment: Sati sfactory for evaluation. Endocervical and/or squamous metaplastic cells (endocervical component) are present. Performed at: WB Performed By: #### [id number] #### [facility] [address] [address] [address] Jani Haywood Vital Signs Date Time Vital Sign Value Performing Clinician Facility 07-30-2023 09:32-0500 Body mass index (BMI) [Ratio] 25.88 kg/m2 [employer] Pollo DO Work Phone: [facility] 07-30-2023 09:32-0500 Body weight 66.28 kg Ivan Pollo DO Work Phone: [facility] 07-30-2023 09:32-0500 Diastolic blood pressure 60 mm[Hg] Ivan Pollo DO Work Phone: [facility] 07-30-2023 09:32-0500 Systolic blood pressure 100 mm[Hg] Ivan Pollo DO Work Phone: [facility] 07-23-2023 14:33-0500 Body mass index (BMI) [Ratio] 26.24 kg/m2 Terese REYES Work Phone: [facility] 07-23-2023 14:33-0500 Body weight 67.19 kg Terese REYES Work Phone: [facility] 07-23-2023 14:33-0500 Diastolic blood pressure 68 mm[Hg] Terese REYES Work Phone: [facility] 07-23-2023 14:33-0500 Systolic blood pressure 110 mm[Hg] Terese REYES Work Phone: [facility] 11-24-2021 14:10-0400 Body height 160.02 cm Megan Elvin Other [facility] Other 11-24-2021 14:10-0400 Body mass index (BMI) [Ratio] 20.55 kg/m2 Megan Elvin Other [facility] Other 11-24-2021 14:10-0400 Body temperature 96.9 [degF] Megan Elvin Other [facility] Other 11-24-2021 14:10-0400 Body weight 52.62 kg Megan Sorensenault Other [facility] Other 11-24-2021 14:10-0400 SaO2% (BldA) [Mass fraction] 97 % Megan Elvin Other [facility] Other Encounters Encounter Date Encounter Type Care Provider Facility Start: 09-03-2023 End: 09-03-2023 ambulatory IVAN POLLO Not Available Start: 08-27-2023 End: 08-27-2023 ambulatory IVAN POLLO [...] Start: 07-21-2023 End: 07-21-2023 ambulatory YULISSA JAIME Facility:[facility] Start: 07-15-2023 End: 07-15-2023 ambulatory TERESE AGUILA Not Available Start: 07-01-2023 End: 07-01-2023 ambulatory IVAN POLLO Not Available Start: 06-18-2023 End: 06-18-2023 ambulatory TERESE AGUILA Not Available Start: 05-20-2023 End: 05-20-2023 ambulatory IVAN POLLO Not Available Start: 10-10-2022 Telephone encounter Leo At[facility] Comment on above: Director Of Professional Services - O ther Start: 10-09-2022 ambulatory Yulissa Jaime AUD Work Phone: Audiology Start: 09-24-2022 End: 09-24-2022 ambulatory RIMMA STERLING Facility:[facility] Start: 09-24-2022 End: 09-24-2022 Patient encounter procedure Rimma Sterling PAAnuradha Work Phone: Otolaryngology Comment on above: Cochlear implant in place (Primary Dx); Sensorineural hearing loss, asymmetrical; Sensorineural hearing loss, bilateral Start: 07-29-2022 End: 07-30-[address] ARIEL RAJAN Facility:[facility] Start: 07-18-2022 End: 07-18-[address] ROSA CAMPOS Facility:[facility] Start: 07-17-2022 Encounter for preprocedural laboratory examination DR ROSA CAMPOS [facility] Start: 07-16-2022 End: 07-17-[address] ROSA CAMPOS Facility:[facility] Start: 07-16-2022 End: 07-17-2022 Encounter for preprocedural laboratory examination DR ROSA CAMPOS Facility:[facility] Start: 07-02-2022 End: 07-03-[address] ROSA CAMPOS Facility:[facility] Start: 06-18-2022 End: 06-19-[address] ROSA CAMPOS Facility:[facility] Start: 11-27-2021 End: 11-27-[address] ROSA CAMPOS Facility:[facility] Start: 11-24-2021 End: 11-24-2021 ambulatory Megan Oconnor Other [facility] Other Start: 11-24-2021 Office outpatient vi sit [...] (3 - PPSV23 if available, else PCV20) [facility] Start: 04-22-2028 Screening for malign ant neoplasm of cervix [facility] Start: 04-26-2024 End: 04-26-2024 Patient encounter procedure 04/26/2024 9:00 AM EST Office Visit [facility] [address] [place] [address] Ivan Abad, DO [address] [place] [address] [facility] Start: 08-13-2023 End: 08-13-2023 Patient encounter procedure 08/13/2023 11:20 AM EST Routine [facility] [address] [place] [address] Ivan Abad, DO [address] [place] [address] [facility] Start: 07-30-2023 End: 07-30-2024 US biophysical profile w non stress test US biophysical profile w non stress test Imaging Routine Small for gestational age (SGA) Expected: 07/30/2023 (Approximate), Expires: 07/30/2024 [facility] Work Phone: Comment on above: Expected: 07/30/2023 (Approximate), Expires: 07/30/2024 Start: 07-30-2023 End: 07-30-2023 Patient encounter procedure 07/30/2023 9:20 AM EST Routine [facility] [address] [place] [address] Ivan Abad, DO [address] [place] [address] [facility] Start: 07-23-2023 End: 07-23-2023 Professional / ancillary services management 07/23/2023 3:00 PM EST Ancillary Procedure [facility] [address] [facility] [place] [address] [facility] Start: 02-20-2023 Influenza vaccination [facility] Start: 06-22-2022 DEPRESSION ASSESSMENT DEPRESSION ASS ESSMENT [facility] Start: 10-20-2021 COVID-19 VACCINE (3 - Booster for Pfizer series) COVID-19 VACCINE (3 - Booster for Pfizer series) [facility] Start: 2019 Mammography MAMMOGRAM [facility] Start: 2019 Screening for malign ant neoplasm of breast Mammogram [facility] Start: 11-17-2009 HPV TESTING HPV TESTING [facility] Start: 11-17-2000 PAP TESTING PAP TESTING [facility] Start: 11-17-1998 Urine microalbumin profile DTAP,TDAP,TD (1 - Tdap) [facility] Start: 11-17-1997 HEPATITIS C SCREENING HEPATITIS C SC JOSE [facility] Start: 11-17-1997 HIV SCREENING HIV SCREENING [facility] Start: 1980 HEPATITIS B (1 of 3 - 3-dose series) HEPATITIS B (1 of 3 - 3-dose series) [facility] Immunizations Immunization Date Immunization Notes Care Provider Fa [facility] 03-22-2020 influenza virus vacc ine, unspecified formulation Terese REYES Work Phone: [facility] 08-13-2017 pneumococcal polysaccharide vaccine, 23 valent Rimma Sterling PA-C Work Phone: [facility] 08-10-2014 pneumococcal conjuga te vaccine, 13 valent Rimma Sterling PA-C Work Phone: [facility] Payers Date Payer Category Payer Unknown [id number] 2022 Unknown [id number] 1980 Unknown [id number] 2.16.84 [id number] 1979 Unknown [id number] 2.16.84 0.1.389885.3.579.2.593 1979 Unknown [id number] 2.16.84 0.1.492977.3.579.2.593 1979 Unknown [id number] 2.16.84 0.1.858529.3.579.2.593 1979 Unknown [id number] 2.16.84 0.1.864485.3.579.2.593 1979 Unknown [id number] 2.16.84 0.1.888211.3.579.2.593 1979 Unknown [id number] 2.16.84 0.1.347087.3.579.2.593 1979 Unknown [id number] 2.16.84 0.1.985956.3.579.2.9 1979 Unknown [id number] 2.16.84 0.1.567797.3.579.2.1258 1979 Unknown [id number] 2.16.84 0.1.975231.3.579.2.1258 1979 Unknown [id number] 2.16.84 0.1.716460.3.579.2.1258 1979 Unknown [id number] 2.16.84 0.1.150896.3.579.2.1258 1979 Unknown [id number] 2.16.84 0.1.284457.3.579.2.1258 1979 Unknown [id number] 2.16.84 0.1.040975.3.579.2.1258 1979 Unknown [id number] 2.16.84 0.1.253905.3.579.2.1258 1979 Unknown [id number] 2.16.840 .1.446365.3.579.2.1258 1979 Unknown [id number] 2.16.840 .1.036371.3.579.2.9 1960 [facility] [id number] [id number] Unknown [id number] 2.16.84 0.1.790156.3.579.2.593 Social History Date Type Detail Facility Start: 03-16-2023 Sex Assigned At [facility] Other Start: 09-24-2022 End: 03-16-2023 Tobacco smoking status WVIS Never smoked tobacco [facility] Start: 09-24-2022 End: 03-16-2023 Tobacco use and exposure Smokeless tobacco non-user [facility] Start: 09-24-2022 Alcohol intake Current non-drinker of alcohol (finding) [facility] Start: 1980 Sex Assigned At Female [facility] Start: 07-23-2023 End: 07-30-2023 Alcohol intake Ex-drinker (finding) [facility] Start: 03-16-2023 History of Social function [facility] Start: 04-22-2023 Alcohol Comment occasional alcohol use, Caffeine intake: none [facility] Start: 12-25-2022 [facility] Start: 01-21-2023 Gender identity Identifies as female gender (finding) [facility] Start: 01-21-2023 Sexual orientation Heterosexual (finding) [facility] Medical Equipment Procedure Code Equipment Code Equipment Original Text Equipment Identifier Dates [id number]-Gs-U-Kind Implant - [id number] Start: 09-02-2017 Comment on above: Description: NUCLEUS [...] Ivan Abad DO documented in this encounter [facility] 07-23-2023 History of Presen t [...] of: ERIC Smallwood documented in this encounter [facility] 07-21-2023 Note HNO ID: [id number] Author: YULISSA JAIME AUD Service: ? Author Type: Prototyper Type: Progress Notes Filed: 07/21/2023 08:47 Note Text: [facility] Section of Allied Hearing, Speech and Balance Services COCHLEAR IMPLANT ADULT PROGRAMMING Name: Amy ALFARO [facility]#: [id number] Date of Service: July 21, 2023 Date of : 1980 Age: [age] year old COCHLEAR IMPLANT INFORMATION (see below for all device details) Updated: July 21, 2023 Right ear: Phonak Audeo [employer] Hearing Aid that was fit at an outside facility (November 2021) and is being managed by that facility. Left ear: External Processor: Cochlear [employer] [id number] (Nucleus 8; upgraded around January 2023) Processor SN: [id number] Processor ([id number]) SN: [id number] Magnet strength: 2 Internal Device: Cochlear CI532 Profile with Slim Modiolar Electrode Array Internal Device SN: [id number] Inactive electrodes: None Surgery Date: 09/02/2017 Initial [...] 6; Sensitivity: 12) before programming. See the [employer] Audiogram for obtained thresholds. Speech perception testing was completed at 60 medical laboratory technical officer using recorded stimuli in the sound field at 0 degrees azimuth. NOTE: The contralateral ear was not plugged and muffed during testing. The following testing and results were obtained: Dgtsjzcad-Qrlefbk-Fwnueaxjo Words (CNC) Test Condition List # Phonemes [...] * Revie (more content not included)... [facility] 10-10-2022 Miscellaneous Notes Window Covering Sales Consultant: Katerina Mina Patient: Hasmukh Alfaro 1980 Clinic: [facility] Prototyper: Dr. Yulissa Jaime Appointment Length: 45 Minutes What are you looking to accomplish?: I d like to learn more about the Nucleus 8 and the process of upgrading Recipient's Stated Reason for Upgrading Clinic Request - Prototyper recommended it [employer] - Processor more [...] steps are Acquisition Methods Recipient will receive Isb-zm-Eqtaof cost estimate once order placed Next Steps If recipient decides to move forward with pursuing a Nucleus 8 upgrade and provides us with the necessary order information, we will start an order on their behalf. You will hear from Cochle[employer] s Home Care Scheduler team, via email/DocuSign to gain your approval or regarding an LMN to allow this patient to move forward in the process. Following completion of the upgrade process, I will invite the recipient to schedule time for a complimentary onboarding with our [employer] team so they can begin to maximize the use of their new Cochlear equipment. documented in this encounter [facility] 10-09-2022 Note HNO ID: [id number] Author: ISRAEL Champion Service: ? Author Type: Prototyper Type: Progress Notes Filed: 10/09/2022 12:58 PM [...] any questions. Upgrade Consultation Clinic Patient Report Window Covering Sales Consultant: Katerina Mina Patient: Hasmukh Alfaro 1980 Clinic: [facility] Prototyper: Dr. Yulissa Jaime Appointment Length: 45 Minutes What are you looking to accomplish?: I?d like to learn more about the Nucleus 8 and the process of upgrading Recipient's Stated Reason for Upgrading ? Clinic Request - Prototyper recommended it ? [employer] - Processor [...] are Acquisition Methods ? Recipient will receive Vyi-cy-Xntuuk cost estimate once order placed Next Steps ? If recipient decides to move forward with pursuing a Nucleus 8 upgrade and provides us with the necessary order information, we will start an order on their behalf. You will hear from Cochle[facility]?s Home Care Scheduler team, via email/DocuSign to gain your approval or regarding an LMN to allow this patient to move forward in the process. Following completion of the upgrade process, I will invite the recipient to schedule time for a complimentary onboarding with our [employer] team so they can begin to maximize the use of their new Cochlear equipment. Katerina Goncalves Au.D., [facility]/A Clinical Prototyper [facility] 10-09-2022 History of Presen t [...] any questions. Upgrade Consultation Clinic Patient Report Window Covering Sales Consultant: Katerina Mina Patient: Hasmukh Alfaro 1980 Clinic: [facility] Prototyper: Dr. Yulissa Jaime Appointment Length: 45 Minutes What are you looking to accomplish?: I d like to learn more about the Nucleus 8 and the process of upgrading Recipient's Stated Reason for Upgrading Clinic Request - Prototyper recommended it [employer] - Processor more [...] steps are Acquisition Methods Recipient will receive Fhp-cy-Azezmi cost estimate once order placed Next Steps If recipient decides to move forward with pursuing a Nucleus 8 upgrade and provides us with the necessary order information, we will start an order on their behalf. You will hear from Cochle[facility] s Home Care Scheduler team, via email/DocuSign to gain your approval or regarding an LMN to allow this patient to move forward in the process. Following completion of the upgrade process, I will invite the recipient to schedule time for a complimentary onboarding with our [employer] team so they can begin to maximize the use of their new Cochlear equipment. Katerina Goncalves Au.D., [facility]/A Clinical Prototyper documented in this encounter [facility] 09-24-2022 Note HNO ID: [id number] Author: Rimma Sterling PA-C Service: ? Author Type: Physician Piece Maker Type: Progress Notes Filed: 09/24/2022 9:53 AM Note Text: History of Present Illness Ms. AMY ALFARO is a 41 year old year old female presenting for: referred by SELF And is a patient of DO Abel Card DO [address] [place] [address] Communication will be via the electronic record [...] (FLONASE) 50 mcg/actuation nasal spray Use 1 [place] in each nostril as needed. multivitamin (DAILY [...] Decision Making Level: 2 - Straightforward [facility] 09-24-2022 Instructions Rimma Sterling PA-C - 09/24/2022 9:[address] Audra Umanzor use his name on paperwork documented in this encounter [facility] 09-24-2022 History of Presen t illness Narrative History of Present Illness Ms. AMY ALFARO is a 41 year old year old female presenting for: referred by SELF And is a patient of DO Abel Card DO [address] [place] [address] Communication will be via the electronic record [...] (FLONASE) 50 mcg/actuation nasal spray Use 1 [place] in each nostril as needed. multivitamin (DAILY [...] 2 - Straightforward documented in this encounter [facility] 07-18-2022 Note EXAMINATION: US PELV IS HISTORY: Surgical procedure COMPARISON: Ultrasound less than 14 weeks 07/16/2022 TECHNIQUE: Transabdominal and transvaginal sonographic examination. FINDINGS: Final images show an empty endometrial cavity. IMPRESSION: 1. No appreciable products of conception within endometrial cavity following dilation and curettage. Electronically authenticated by: ALEXI BRANCH Date: 2022-07-18 08:21 [facility] 11-24-2021 Evaluation note Encounter Date [...] Fungal rash of trunk (ICD-10 - B36.9) [facility] Other Evaluation note* Diagnosis Cochlear implant in place- Primary Other postprocedural status Sensorineural hearing loss, asymmetrical Sensorineural hearing loss, bilateral [facility] Low blood pressure reading Nonspecific low blood pressure reading Dizziness Dizziness and giddiness Feeling faint Third trimester state, incidental [facility] Third trimester state, incidental Small for gestational age (SGA) [facility] N[facility] - Reported* Type Description Date Medical History bilateral hearing loss Surgical History cochlear implant Surgical History D&C [facility] Other Summary Purpose Family History No Family History Records FoundNo Family History Records FoundNo Family History Records Found Advance Directives No Advanced Directives Records FoundNo Advanced Directives Records FoundNo Advanced Directives Records Found Additional Source Comments REASON FOR VISIT (unrecogniz ed section and content) Reason Comments Hearing Loss New. Self referral. CI LT side. Last audio 03/18/22. Denies otalgia and otorrhea. Reason Comments Director Of Professional Services - Other Reason Comments Dizziness Hypotension Reason Comments Routine Visit INFORMATION SOURCE (unrecogn ized section and content) DATE CREATED AUTHOR 07/30/2022 [facility] DATE CREATED AUTHOR AUTHOR'S ORGANIZ ATION 07/22/2023 [facility] DATE CREATED AUTHOR AUTHOR'S ORGANIZ ATION 09/04/2023 [facility] [facility] [employer] Comments (unrecognize d section and content) In the event this informatio n is protected by the Federal Confidentiality of Alcohol and Drug Abuse Patient Records regulations: The Federal rules restrict any use of the information to criminally investigate or prosecute any alcohol or drug abuse patient.[facility] the event this information is protected by the Federal Confidentiality of Alcohol and Drug Abuse Patient Records regulations: The Federal rules restrict any use of the information to criminally investigate or prosecute any alcohol or drug abuse patient.[facility] the event this information is protected by the Federal Confidentiality of Alcohol and Drug Abuse Patient Records regulations: The Federal rules restrict any use of the information to criminally investigate or prosecute any alcohol or drug abuse patient.[facility] Care Teams (unrecognized sec tion and content) Import Customer Service Manager Relationship Specialty Start Date End Date Abel Sun PCP - [facility] 03/15/14 Import Customer Service Manager Relationship Specialty Start Date End Date Abel Sun PCP - General [facility] 03/15/14 Import Customer Service Manager Relationship Specialty Start Date End Date Abel Sun PCP - [facility] 03/15/14 Import Customer Service Manager Relationship Specialty Start Date End Date Ariel Rajan MD [address] [place] [address] [facility] 02/16/23 Import Customer Service Manager Relationship Specialty Start Date End Date Ariel Rajan MD [address] [place] [address] [facility] 02/16/23 FOR RECORDS PERTAINING TO PATIENTS [...] BE BASED ON THE PRIMARY CLINICAL RECORDS. [facility] provides no warranty or guarantee of the accuracy or completeness of information in this document.
--- NOTE | 2023-09-08 09:03 | PC.NURSE ---
0878-Dr. Abad called at this time and updated on pt NST. Aware of FHR 135, moderate variability and accels as well as BPP 8/, EFRAIN 13.9. However, phone call made d/t late decel when pt. was first put on the monitor. Pt. did not feel contraction. Dr. Abad would like to induce today. Pt. updated on plan of care and is calling family.
--- OUTSIDE RECORDS SUMMARY | 2023-09-08 10:16 | XMS_ITS | CCD ---
Author Organization [facility] Care Team Providers Care Delivery Technician Name Role Phone Megan Oconnor Unavailable [...] Attending Unavailable ABEL SUN Primary Care Unavailab mayr Rajan MD, Ariel Loredo Primary Care Provider [...] [SEASONAL ALLERGIES] Allergy to substance 4 Cough [facility] (4 sources) Octacosanol Drug Allergy 4 Cough [facility] (4 sources) Other Propensity to adverse reactions 3 Unknown [facility] Medications Current Medications Medication Drug Class(es) Dates Sig (Normalized) Sig (Original) [id number] 200 actuat albuterol 0.09 mg/actuat metered dose [...] on above: Take 1 capsule by mo [facility] as needed. fluticasone propionate 0.05 mg/actuat metered dose nasal spray (3 sources) Corticosteroid fluticasone (FLONASE) 50 mcg/actuation nasal spray Indications: Bilateral sensorineural hearing loss , Autoimmune disorder of inner ear Use 1 [place] in each nostril as needed. 0 Active Comment on above: Use 1 [place] in each nostril as needed. LOW-DOSE ASPIRIN [...] low weight; and growth retardation (2 sources) Hooly-czp-plohn baby; Translations: [[place] small for gestational age, unspecified weight] 07-30-2023 [...] UA Negative Negative - 4(70) +++ mg/dL [facility] Blood, UA Positive Negative - 50 Bobby/mcL [facility] Comment on above: trace-intact Clarity, UA Clear [facility] re Color, UA Yellow [facility] Glucose, UA Negative Negative - 1999(110) ++++ mg/dL [facility] Interpretation and review of laboratory results Abnormal [facility] Ketones, UA Negative Negative - 160(16) ++++ mg/dL [facility] Leukocytes, UA Positive Negative - 500+++ Suzette/mcL [facility] Comment on above: small Nitrite, UA Negative Negative - Positive [facility] pH, UA 6.0 5 - 9 [facility] e Protein, UA Negative Negative - 1999(20) ++++ mg/dL [facility] Spec Grav, UA 1.010 1 - 1.03 [facility] care Urobilinogen, UA 0.2 0.2 - 12 mg/dL [facility] Urinalysis macro (dipstick) panel (U)on 07-23-2023 Bilirubin, UA Negative Negative - 4(70) +++ mg/dL [facility] Blood, UA Negative Negative - 50 Bobby/mcL [facility] Clarity, UA Clear [facility] re Color, UA Yellow [facility] Glucose, UA Negative Negative - 1999(110) ++++ mg/dL [facility] Interpretation and review of laboratory results Abnormal [facility] Ketones, UA Negative Negative - 160(16) ++++ mg/dL [facility] Leukocytes, UA Positive Negative - 500+++ Suzette/mcL [facility] Comment on above: small Nitrite, UA Negative Negative - Positive [facility] pH, UA 7.0 5 - 9 [facility] Protein, UA Negative Negative - 1999(20) ++++ mg/dL [facility] Spec Grav, UA 1.015 1 - 1.03 [facility] Urobilinogen, UA 0.2 0.2 - 12 mg/dL [facility] 07-21-2023 CNOV Office Visit (OTAUCR ) AMY ALFARO ([id number]) 1980 F Date Time Provider Department 07/21/23 7:30 AM YULISSA JAIME During your visit today, we recorded the following information about you: Yulissa Jaime AUD 07/21/2023 8:47 AM Signed [facility] [place] [facility] COCHLEAR IMPLANT ADULT PROGRAMMING Name: Amy ALFARO CC#: [id number] Date of Service: July 21, 2023 Date of : 1980 Age: [age] year old COCHLEAR IMPLANT INFORMATION (see below for all device details) Updated: July 21, 2023 Right ear: Phonak Audeo RITE Hearing Aid that was fit at an outside facility (November 2021) and is being managed by that facility. 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 NOTE: The contralateral ear was not plugged and muffed during testing. The following testing and results were obtained: Kbvybdxuj-Mxyumdu-Mqt sonant Words (CNC) Test Condition List # [...] etc. Shoul (more content not included)... Normal [facility] Ada 10-10-2022 CNPN Telephone (HNQ) AMY ALFARO ([id number]) 1980 F Date Time Provider Department 10/10/22 CHINALEO MARIIA During your visit today, we recorded the following information about you: Leo China 10/10/2022 3:52 PM Signed Machine Compositor: Katerina Mina Patient: Hasmukh Alfaro 1980 Clinic: [facility] Inorganic Chemistry Teacher: Dr. Yulissa Jaime Appointment Length: 45 Minutes What are you looking to accomplish?: I?d like to learn more about the Nucleus 8 and the process of upgrading Recipient's Stated Reason for Upgrading ? Clinic Request - Inorganic Chemistry Teacher recommended it ? Useful Life - Processor [...] are Acquisition Methods ? Recipient will receive Isn-xa-Agfhmd cost estimate once order placed Next Steps ? If recipient decides to move forward with pursuing a Nucleus 8 upgrade and provides us with the necessary order information, we will start an order on their behalf. 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 - fluticasone (FLONASE) 50 mcg/actuation nasal spray Use 1 [place] in each nostril as needed. - multivitamin [...] Encounter Status:Closed by LEO ATKINSON on 10/10/[address] [facility] Emily 09-24-2022 CNOV Office Visit (OTOLCR ) AMY ALFARO ([id number]) 1980 F Date Time Provider Department 09/24/22 9:30 AM RIMMA STERLING During your visit today, we recorded the following information about you: Rimma Sterling PA-C 09/24/2022 9:53 AM Signed History of Present Illness Ms. AMY ALFARO is a 41 year old year old female presenting for: referred by SELF And is a patient of DO Abel Card DO [address] [place] [address] Communication will be via the electronic record [...] (FLONASE) 50 mcg/actuation nasal spray Use 1 [place] in each nostril as needed. multivitamin (DAILY [...] ALLERGIES 1 (more content not included)... Normal [facility] CBC AUTO DIFFon 07-29-2022 BASO # 0.0 103/ul Normal 0.0-0.1 [facility] Comment on above: Performed By: #### C BC #### [facility] [address] [place] [address] Dr. Jani Haywood Basophils/100 WBC (Bld) 0.6 % Normal 0.2-2.0 [facility] Comment on above: Performed By: #### C BC #### [facility] [address] [place] [address] Dr. Jani Haywood EO # 0.1 103/ul Normal 0.0-0.7 [facility] Comment on above: Performed By: #### C BC #### [facility] [address] [place] [address] Dr. Jani Haywood Eosinophils/100 WBC (Bld) 2.5 % Normal 0.9-7.0 [facility] Comment on above: Performed By: #### C BC #### [facility] [address] [place] [address] Dr. aJni Haywood Erythrocyte distribution width (RBC) [Ratio] 13.7 % Normal 11.0-15.0 [facility] Comment on above: Performed By: #### C BC #### [facility] [address] [place] [address] Dr. Jani Haywood Hematocrit (Bld) [Volume fraction] 40.3 % Normal 36.0-48.0 [facility] Comment on above: Performed By: #### C BC #### [facility] [address] [place] [address] Dr. Jani Haywood Hemoglobin (Bld) [Mass/Vol] 12.7 g/dL Normal 12.0-16.0 [facility] Comment on above: Performed By: #### C BC #### [facility] [address] [place] [address] Dr. Jani Haywood IG # 0.01 10e3/ul Normal 0.00-0.03 [facility] Comment on above: Performed By: #### C BC #### [facility] [address] [place] [address] Dr. Jani Haywood IG % 0.2 % Normal 0.0-0.5 [facility] Comment on above: Performed By: #### C BC #### [facility] [address] [place] [address] Dr. Jani Haywood LYMPH # 1.8 103/ul Normal 1.2-3.8 [facility] Comment on above: Performed By: #### C BC #### [facility] [address] [place] [address] Dr. Jani Haywood Lymphocytes/100 WBC (Bld) 35.2 % Normal 20.5-60.0 [facility] Comment on above: Performed By: #### C BC #### [facility] [address] [place] [address] Dr. Jani Haywood MANUAL DIFF REQ NO Normal [facility] Comment on above: Performed By: #### C BC #### [facility] [address] [place] [address] Dr. Jani Haywood MCH (RBC) [Entitic mass] 30.5 pg Normal 26.7-34.0 [facility] Comment on above: Performed By: #### C BC #### [facility] [address] [place] [address] Dr. Jani Haywood MCHC (RBC) [Mass/Vol] 31.5 g/dL Normal 29.9-35.2 [facility] Comment on above: Performed By: #### C BC #### [facility] [address] [place] [address] Dr. Jani Haywood MCV (RBC) [Entitic vol] 96.9 fL Normal 81.0-99.0 [facility] Comment on above: Performed By: #### C BC #### [facility] [address] [place] [address] Dr. Jani Haywood MONO # 0.4 103/ul Normal 0.3-0.8 [facility] Comment on above: Performed By: #### C BC #### [facility] [address] [place] [address] Dr. Jani Haywood Monocytes/100 WBC (Bld) 8.1 % Normal 1.7-12.0 [facility] Comment on above: Performed By: #### C BC #### [facility] [address] [place] [address] Dr. Jani Haywood NEUT # 2.8 103/ul Normal 1.4-6.5 [facility] Comment on above: Performed By: #### C BC #### [facility] [address] [address] [address] Jani Haywood Neutrophils/100 WBC (Bld) 53.4 % Normal 43.0-75.0 [facility] Comment on above: Performed By: #### C BC #### [facility] [address] [address] [address] Jani Haywood Platelet mean volume (Bld) [Entitic vol] 10.0 fL Normal 9.5-13.5 [facility] Comment on above: Performed By: #### C BC #### [facility] [address] [address] [address] Jani Haywood PLT 271 103/ul Normal 150-450 [facility] Comment on above: Performed By: #### C BC #### [facility] [address] [place] [address] Dr. Jani Haywood RBC 4.16 106/ul Critically low 4.20-5.40 [facility] Comment on above: Performed By: #### C BC #### [facility] [address] [address] [address] Jani Haywood WBC 5.2 103/ul Normal 4.0-11.0 [facility] Comment on above: Performed By: #### C BC #### [facility] [address] [place] [address] Dr. Jani Haywood IRONon 07-29-2022 Iron [Mass/Vol] 64.0 ug/dL Normal 50.0-170.0 [facility] Comment on above: Performed By: #### A 1C #### [facility] [address] [place] [address] Dr. Jani Haywood PROF 14(COMP METB)on 023 Albumin [Mass/Vol] 3.5 g/dL Normal 3.4-5.0 [facility] Comment on above: Performed By: #### C MP #### [facility] [address] [place] [address] Dr. Jani Haywood Albumin/Globulin [Mass ratio] 0.9 {ratio} Normal [facility] Comment on above: Performed By: #### C MP #### [facility] [address] [address] [address] Jani Haywood ALP [Catalytic activity/Vol] 73 U/L Normal 46-116 [facility] Comment on above: Performed By: #### C MP #### [facility] [address] [address] [address] Jani Haywood ALT [Catalytic activity/Vol] 12 U/L Critically low 14-59 [facility] Comment on above: Performed By: #### C MP #### [facility] [address] [address] [address] Jani Haywood Anion gap [Moles/Vol] 11.0 mmol/L Normal [facility] Comment on above: Performed By: #### C MP #### [facility] [address] [address] [address] Jani Haywood AST [Catalytic activity/Vol] 13 U/L Critically low 15-37 [facility] Comment on above: Performed By: #### C MP #### [facility] [address] [address] [address] Jani Haywood Bilirubin [Mass/Vol] 0.5 mg/dL Normal 0.2-1.0 [facility] Comment on above: Performed By: #### C MP #### [facility] [address] [address] [address] Jani Haywood Calcium [Mass/Vol] 8.6 mg/dL Normal 8.5-10.1 [facility] Comment on above: Performed By: #### C MP #### [facility] [address] [address] [address] Jani Haywood Chloride [Moles/Vol] 105 mmol/L Normal 98-107 [facility] Comment on above: Performed By: #### C MP #### [facility] [address] [address] [address] Jani Haywood CO2 [Moles/Vol] 28.8 mmol/L Normal 21.0-32.0 [facility] Comment on above: Performed By: #### C MP #### [facility] [address] [address] [address] Jani Haywood Creatinine [Mass/Vol] 0.87 mg/dL Normal 0.55-1.02 [facility] Comment on above: Performed By: #### C MP #### [facility] [address] [address] [address] Jani Haywood EGFR-AF FILIPINO >60 Normal >=[address] [facility] Comment on above: Performed By: #### C MP #### [facility] [address] [address] [address] Jani Haywood EGFR-NON AF FILIPINO >60 Normal >=60 [facility] Comment on above: Performed By: #### C MP #### [facility] [address] [place] [address] Dr. Jani Haywood Globulin (S) [Mass/Vol] 3.7 g/dL Normal [facility] Comment on above: Performed By: #### C MP #### [facility] [address] [place] [address] Dr. Jani Haywood Glucose [Mass/Vol] 95 mg/dL Normal 74-106 [facility] Comment on above: Performed By: #### C MP #### [facility] [address] [place] [address] Dr. Jani Haywood Potassium [Moles/Vol] 3.8 mmol/L Normal 3.5-5.1 [facility] Comment on above: Performed By: #### C MP #### [facility] [address] [place] [address] Dr. Jani Haywood Protein [Mass/Vol] 7.2 g/dL Normal 6.4-8.2 [facility] Comment on above: Performed By: #### C MP #### [facility] [address] [place] [address] Dr. Jani Haywood Sodium [Moles/Vol] 141 mmol/L Normal 136-145 [facility] Comment on above: Performed By: #### C MP #### [facility] [address] [place] [address] Dr. Jani Haywood Urea nitrogen [Mass/Vol] 12.0 mg/dL Normal 7.0-18.0 [facility] Comment on above: Performed By: #### C MP #### [facility] [address] [address] [address] Jani Haywood Urea nitrogen/Creatinine [Mass ratio] 13.8 mg/mg Normal [facility] Comment on above: Performed By: #### C MP #### [facility] [address] [address] [address] Jani Haywood Covid-19 PCR (CVDTB)on 06-23 SARS-CoV-2 (COVID-19) RNA CAROLE+probe Ql (Unsp spec) Not detected Normal NOT DETECTED [facility] Comment on above: Result Comment: This test is not yet approved or cleared by the [place] FDA. When there are no FDA-approved or cleared tests available, and other criteria are met, FDA can make tests available under an emergency access mechanism called an Emergency Use Authorization (EUA). The EUA for this test is supported by the [place] of Health and Human Service's (HHS's) declaration [...] SARS-CoV-2. Performed By: #### C VDTB #### [facility] [address] [address] [address] Jani Haywood US PREG <14 WKSon [...] was notified of these findings by the air conditioning mechanic at time of imaging. Electronically authenticated by: ALEXI BRANCH Date: 2022-07-16 13:36 Normal [facility] HEP B SURFACE ANTIGEN SCREEN on 07-03-2022 HBsAg Screen Negative Normal Negative [facility] Comment on above: Performed By: #### A 1C #### [facility] [address] [place] [address] Dr. Jani Haywood HEPATITIS C VIRUS AB W/ REFL EX QUANTon 07-03-2022 HCV AB <0.1 Normal 0.0-0.9 [facility] Comment on above: Performed By: #### H CVPCRR #### [facility] [address] [place] [address] Dr. Jani Haywood Interpretation: Comment Normal [facility] Comment on above: Result Comment: Nega tive Not infected with HCV, unless recent infection is suspected or other evidence exists to indicate HCV infection. Performed By: #### H CVPCRR #### [facility] [address] [place] [address] Dr. Jani Haywood HIV 1 AND 2 WITH REFLEXon HIV Screen 4th Generation wRfx Non-Reactive Normal Non Reactive [facility] Comment on above: Result Comment: HIV Negative HIV-1/HIV-2 antibodies and HIV-1 p24 antigen were NOT detected. There is no laboratory evidence of HIV infection. Performed By: #### H IV12 #### [facility] [address] [place] [address] Dr. Jani Haywood RPR QUANTon 07-03-2022 Rapid Plasma Reagin, Quant Non-Reactive Normal NonRea<1:1 [facility] Comment on above: Result Comment: Plea se Note: This test does not meet current guidelines for screening and diagnosis of syphilis. This test is intended for following treatment response in patients being treated for syphilis infection. To screen for syphilis infection, a reflex cascade that includes both RPR and a treponema-specific assay should be utilized, such as Treponema pallidum (Syphilis) Screening [place] (254611) or Rapid Plasma Reagin (RPR) Test With Reflex to Quantitative RPR and Confirmatory Treponema pallidum Antibodies (863078). Performed By: #### R PRQ #### [facility] [address] [place] [address] Dr. Jani Haywood RUBELLA AB IGGon 07-03-2022 Rubella Antibodies, IgG 2.92 index Normal Immune >0.99 [facility] Comment on above: Result Comment: Non- immune <0.90 Equivocal 0.90 - 0.99 Immune >0.99 Performed By: #### A 1C #### [facility] [address] [place] [address] Dr. Jani Haywood CBC AUTO DIFFon 07-02-2022 BASO # 0.1 103/ul Normal 0.0-0.1 [facility] Comment on above: Performed By: #### C BC #### [facility] [address] [place] [address] Dr. Jani Haywood Basophils/100 WBC (Bld) 0.7 % Normal 0.2-2.0 [facility] Comment on above: Performed By: #### C BC #### [facility] [address] [place] [address] Dr. Jani Haywood EO # 0.1 103/ul Normal 0.0-0.7 [facility] Comment on above: Performed By: #### C BC #### [facility] [address] [place] [address] Dr. Jani Haywood Eosinophils/100 WBC (Bld) 1.2 % Normal 0.9-7.0 [facility] Comment on above: Performed By: #### C BC #### [facility] [address] [place] [address] Dr. Jani Haywood Erythrocyte distribution width (RBC) [Ratio] 13.7 % Normal 11.0-15.0 [facility] Comment on above: Performed By: #### C BC #### [facility] [address] [address] [address] Jani Haywood Hematocrit (Bld) [Volume fraction] 37.9 % Normal 36.0-48.0 [facility] Comment on above: Performed By: #### C BC #### [facility] [address] [address] [address] Jani Haywood Hemoglobin (Bld) [Mass/Vol] 12.6 g/dL Normal 12.0-16.0 [facility] Comment on above: Performed By: #### C BC #### [facility] [address] [place] [address] Dr. Jani Haywood IG # 0.02 10e3/ul Normal 0.00-0.03 [facility] Comment on above: Performed By: #### C BC #### [facility] [address] [place] [address] Dr. Jani Haywood IG % 0.3 % Normal 0.0-0.5 [facility] Comment on above: Performed By: #### C BC #### [facility] [address] [place] [address] Dr. Jani Haywood LYMPH # 1.6 103/ul Normal 1.2-3.8 [facility] Comment on above: Performed By: #### C BC #### [facility] [address] [place] [address] Dr. Jani Haywood Lymphocytes/100 WBC (Bld) 21.5 % Normal 20.5-60.0 [facility] Comment on above: Performed By: #### C BC #### [facility] [address] [place] [address] Dr. Jani Haywood MANUAL DIFF REQ NO Normal [facility] Comment on above: Performed By: #### C BC #### [facility] [address] [place] [address] Dr. Jani Haywood MCH (RBC) [Entitic mass] 30.4 pg Normal 26.7-34.0 [facility] Comment on above: Performed By: #### C BC #### [facility] [address] [address] [address] Jani Haywood MCHC (RBC) [Mass/Vol] 33.2 g/dL Normal 29.9-35.2 [facility] Comment on above: Performed By: #### C BC #### [facility] [address] [address] [address] Jani Haywood MCV (RBC) [Entitic vol] 91.3 fL Normal 81.0-99.0 [facility] Comment on above: Performed By: #### C BC #### [facility] [address] [place] [address] Dr. Jani Haywood MONO # 0.5 103/ul Normal 0.3-0.8 [facility] Comment on above: Performed By: #### C BC #### [facility] [address] [place] [address] Dr. Jani Haywood Monocytes/100 WBC (Bld) 6.6 % Normal 1.7-12.0 [facility] Comment on above: Performed By: #### C BC #### [facility] [address] [place] [address] Dr. Jani Haywood NEUT # 5.1 103/ul Normal 1.4-6.5 [facility] Comment on above: Performed By: #### C BC #### [facility] [address] [place] [address] Dr. Jani Haywood Neutrophils/100 WBC (Bld) 69.7 % Normal 43.0-75.0 [facility] Comment on above: Performed By: #### C BC #### [facility] [address] [place] [address] Dr. Jani Haywood Platelet mean volume (Bld) [Entitic vol] 10.2 fL Normal 9.5-13.5 [facility] Comment on above: Performed By: #### C BC #### [facility] [address] [place] [address] Dr. Jani Haywood PLT 281 103/ul Normal 150-450 [facility] Comment on above: Performed By: #### C BC #### [facility] [address] [address] [address] Jani Haywood RBC 4.15 106/ul Critically low 4.20-5.40 [facility] Comment on above: Performed By: #### C BC #### [facility] [address] [address] [address] Jani Haywood WBC 7.3 103/ul Normal 4.0-11.0 [facility] Comment on above: Performed By: #### C BC #### [facility] [address] [place] [address] Dr. Jani Haywood GLYCOHEMOGLOBIN A1Con 2022 ADA RECOMMENDATION SEE BELOW Normal The [facility] Comment on above: Result Comment: ADA RECOMMENDED LIMIT 4.0 - 6.0 ADA THERAPEUTIC TARGET < 7.0 ACTION SUGGESTED > 7.0 Performed By: #### A 1C #### [facility] [address] [place] [address] Dr. Jani Haywood Glucose [Mass/Vol] 103 mg/dL Normal [facility] Comment on above: Performed By: #### A 1C #### [facility] [address] [place] [address] Dr. Jani Haywood HbA1c (Bld) [Mass fraction] 5.2 % Normal 4.5-6.2 [facility] Comment on above: Performed By: #### A 1C #### [facility] [address] [place] [address] Dr. Jani Haywood CRISTELA BOX TEST PT SEND OUTo n 07-02-2022 SENT TO REF LAB 07/02/2022 Normal [facility] Comment on above: Performed By: #### N BOX #### [facility] [address] [place] [address] Dr. Jani Haywood TYPE AND SCREENon 07-02-2022 TYPE AND SCREEN Negative Normal [facility] Comment on above: Performed By: #### A 1C #### [facility] [address] [place] [address] Dr. Jani Haywood US PREG TVon 06-18-2022 [...] by: RIMMA BATRES Date: 2022-06-18 16:09 Normal [facility] PAP ACOG PANEL 2: 30 to 65on 12-03-2021 . . Normal [facility] Comment on above: Result Comment: Perf ormed at: WB Performed By: #### [id number] #### [facility] [address] [place] [address] Dr. Jani Haywood Age Gdln ACOG Testing 30-65 Normal [facility] Comment on above: Performed By: #### [id number] #### [facility] [address] [place] [address] Dr. Jani Haywood DIAGNOSIS: Comment Normal [facility] Comment on above: Result Comment: NEGA TIVE FOR INTRAEPITHELIAL LESION OR MALIGNANCY. Performed at: WB Performed By: #### [id number] #### [facility] [address] [place] [address] Dr. Jani Haywood HPV Aptima Negative Normal Negative [facility] Comment on above: Result Comment: This nucleic acid amplification test detects fourteen high-risk HPV types (16,18,31,33,35,39,45,51,52,56,58,59,66,68) without differentiation. Performed at: =G Performed By: #### [id number] #### [facility] [address] [address] [address] Jani Haywood Methodology: Comment Normal [facility] Comment on above: Result Comment: This liquid based ThinPrep(R) pap test was screened with the use of an image guided system. Performed at: WB Performed By: #### 4 [id number] #### [facility] [address] [place] [address] Dr. Jani Haywood Note: Comment [facility] Comment on above: Result Comment: The Pap smear is a screening test designed to aid in the detection of premalignant and malignant conditions of the uterine cervix. It is not a diagnostic procedure and should not be used as the sole means of detecting cervical cancer. Both false-positive and false-negative reports do occur. . Performed at: WB Performed By: #### [id number] #### [facility] [address] [address] [address] Jani Haywood Performed by: Comment Normal [facility] Comment on above: Result Comment: Nikki Schwab, Judicial Reporter (ASCP) Performed at: WB Performed By: #### [id number] #### [facility] [address] [address] [address] Jani Haywood Specimen adequacy: Comment Normal [facility] Comment on above: Result Comment: Sati sfactory for evaluation. Endocervical and/or squamous metaplastic cells (endocervical component) are present. Performed at: WB Performed By: #### [id number] #### [facility] [address] [address] [address] Jani Haywood Vital Signs Date Time Vital Sign Value Performing Clinician Facility 07-30-2023 09:32-0500 Body mass index (BMI) [Ratio] 25.88 kg/m2 Strut Pollo DO Work Phone: [facility] 07-30-2023 09:32-0500 Body weight 66.28 kg Ivan Pollo DO Work Phone: [facility] 07-30-2023 09:32-0500 Diastolic blood pressure 60 mm[Hg] Ivan Pollo DO Work Phone: [facility] 07-30-2023 09:32-0500 Systolic blood pressure 100 mm[Hg] Ivan Pollo DO Work Phone: [facility] 07-23-2023 14:33-0500 Body mass index (BMI) [Ratio] 26.24 kg/m2 Terese REYES Work Phone: [facility] 07-23-2023 14:33-0500 Body weight 67.19 kg Terese REYES Work Phone: [facility] 07-23-2023 14:33-0500 Diastolic blood pressure 68 mm[Hg] Terese REYES Work Phone: [facility] 07-23-2023 14:33-0500 Systolic blood pressure 110 mm[Hg] Terese REYES Work Phone: [facility] 11-24-2021 14:10-0400 Body height 160.02 cm Megan Elvin Other [employer] Other 11-24-2021 14:10-0400 Body mass index (BMI) [Ratio] 20.55 kg/m2 Megan Elvin Other [employer] Other 11-24-2021 14:10-0400 Body temperature 96.9 [degF] Megan Elvin Other [employer] Other 11-24-2021 14:10-0400 Body weight 52.62 kg Megan Sorensenault Other [employer] Other 11-24-2021 14:10-0400 SaO2% (BldA) [Mass fraction] 97 % Megan Elvin Other [employer] Other Encounters Encounter Date Encounter Type Care [...] End: 07-21-2023 ambulatory YULISSA JAIME Facility: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 Start: 09-24-2022 End: 09-24-2022 Patient encounter procedure Rimma Sterling PAAnuradha Work Phone: Otolaryngology Comment on above: Cochlear implant in place (Primary Dx); Sensorineural hearing loss, asymmetrical; Sensorineural hearing loss, bilateral Start: 07-29-2022 End: 07-30-[address] ARIEL RAJAN Facility:[facility] Start: 07-18-2022 End: 07-18-[address] ROSA CAMPOS Facility:[facility] Start: 07-17-2022 Encounter for preprocedural laboratory examination DR ROSA CAMPOS [facility] Start: 07-16-2022 End: 07-17-[address] ROSA CAMPOS Facility:[facility] Start: 07-16-2022 End: 07-17-2022 Encounter for preprocedural laboratory examination DR ROSA CAMPOS Facility:[facility] Start: 07-02-2022 End: 07-03-[address] ROSA CAMPOS Facility:[facility] Start: 06-18-2022 End: 06-19-[address] ROSA CAMPOS Facility:[facility] Start: 11-27-2021 End: 11-27-[address] ROSA CAMPOS Facility:[facility] Start: 11-24-2021 End: 11-24-2021 ambulatory Megan Oconnor Other [employer] Other Start: 11-24-2021 Office outpatient vi sit [...] (3 - PPSV23 if available, else PCV20) [facility] Start: 04-22-2028 Screening for malign ant neoplasm of cervix [facility] Start: 04-26-2024 End: 04-26-2024 Patient encounter procedure 04/26/2024 9:00 AM EST Office Visit [facility] [address] [place] [address] Ivan Abad, DO [address] [place] [address] [facility] Start: 08-13-2023 End: 08-13-2023 Patient encounter procedure 08/13/2023 11:20 AM EST Routine [facility] [address] [place] [address] Ivan Abad, DO [address] [place] [address] [facility] Start: 07-30-2023 End: 07-30-2024 US biophysical profile w non stress test US biophysical profile w non stress test Imaging Routine Small for gestational age (SGA) Expected: 07/30/2023 (Approximate), Expires: 07/30/2024 [facility] Work Phone: Comment on above: Expected: 07/30/2023 (Approximate), Expires: 07/30/2024 Start: 07-30-2023 End: 07-30-2023 Patient encounter procedure 07/30/2023 9:20 AM EST Routine [facility] [address] [place] [address] Ivan Abad, DO [address] [place] [address] [facility] Start: 07-23-2023 End: 07-23-2023 Professional / ancillary services management 07/23/2023 3:00 PM EST Ancillary Procedure [facility] [address] [facility] [place] [place] [address] [facility] Start: 02-20-2023 Influenza vaccination C [facility] Start: 06-22-2022 DEPRESSION ASSESSMENT DEPRESSION ASS ESSMENT [facility] Start: 10-20-2021 COVID-19 VACCINE (3 - Booster for Pfizer series) COVID-19 VACCINE (3 - Booster for Pfizer series) [facility] Start: 2019 Mammography MAMMOGRAM [facility] Start: 2019 Screening for malign ant neoplasm of breast Mammogram [facility] Start: 11-17-2009 HPV TESTING HPV TESTING [facility] Start: 11-17-2000 PAP TESTING PAP TESTING [facility] Start: 11-17-1998 Urine microalbumin profile DTAP,TDAP,TD (1 - Tdap) [facility] Start: 11-17-1997 HEPATITIS C SCREENING HEPATITIS C SC JOSE [facility] Start: 11-17-1997 HIV SCREENING HIV SCREENING [facility] Start: 1980 HEPATITIS B (1 of 3 - 3-dose series) HEPATITIS B (1 of 3 - 3-dose series) [facility] Immunizations Immunization Date Immunization Notes Care Provider Fa [facility] 03-22-2020 influenza virus vacc ine, unspecified formulation Terese REYES Work Phone: [facility] 08-13-2017 pneumococcal polysaccharide vaccine, 23 valent Rimma Sterling PA-C Work Phone: [facility] 08-10-2014 pneumococcal conjuga te vaccine, 13 valent Rimma Sterling PA-C Work Phone: [facility] Payers Date Payer Category Payer Unknown [id number] 2022 Unknown [id number] 1980 Unknown [id number] 2.16.84 0.1.863082.3.579.2.593 1979 Unknown [id number] 2.16.84 0.1.707797.3.579.2.593 1979 Unknown [id number] 2.16.84 0.1.912452.3.579.2.593 1979 Unknown [id number] 2.16.84 0.1.032907.3.579.2.593 1979 Unknown [id number] 2.16.84 0.1.682976.3.579.2.593 1979 Unknown [id number] 2.16.84 0.1.108381.3.579.2.593 1979 Unknown [id number] 2.16.84 0.1.793130.3.579.2.593 1979 Unknown [id number] 2.16.84 0.1.911602.3.579.2.9 1979 Unknown [id number] 2.16.84 0.1.440978.3.579.2.1258 1979 Unknown [id number] 2.16.84 0.1.831056.3.579.2.1258 1979 Unknown [id number] 2.16.84 0.1.549645.3.579.2.1258 1979 Unknown [id number] 2.16.84 0.1.383746.3.579.2.1258 1979 Unknown [id number] 2.16.84 0.1.272190.3.579.2.1258 1979 Unknown [id number] 2.16.84 0.1.814584.3.579.2.1258 1979 Unknown [id number] 2.16.84 0.1.035278.3.579.2.1258 1979 Unknown [id number] 2.16.840 .1.458525.3.579.2.1258 1979 Unknown [id number] 2.16.840 .1.764441.3.579.2.9 1960 [facility] [id number] [id number] Unknown [id number] 2.16.84 0.1.120290.3.579.2.593 Social History Date Type Detail Facility Start: 03-16-2023 Sex Assigned At [employer] Other Start: 09-24-2022 End: 03-16-2023 Tobacco smoking status NCIS Never smoked tobacco [facility] Start: 09-24-2022 End: 03-16-2023 Tobacco use and exposure Smokeless tobacco non-user [facility] Start: 09-24-2022 Alcohol intake Current non-drinker of alcohol (finding) [facility] Start: 1980 Sex Assigned At Female [facility] Start: 07-23-2023 End: 07-30-2023 Alcohol intake Ex-drinker (finding) [facility] Start: 03-16-2023 History of Social function [facility] Start: 04-22-2023 Alcohol Comment occasional alcohol use, Caffeine intake: none [facility] Start: 12-25-2022 [facility] Start: 01-21-2023 Gender identity Identifies as female gender (finding) [facility] Start: 01-21-2023 Sexual orientation Heterosexual (finding) [facility] Medical Equipment Procedure Code Equipment Code Equipment Original Text Equipment Identifier Dates [id number] Implant - [id number] Start: 09-02-2017 Comment on above: Description: [...] Ivan Abad DO documented in this encounter [facility] 07-23-2023 History of Presen t [...] of: ERIC Smallwood documented in this encounter [facility] 07-21-2023 Note HNO ID: [id number] Author: YULISSA JAIME AUD Service: ? Author Type: Inorganic Chemistry Teacher Type: Progress Notes Filed: 07/21/2023 08:47 Note Text: [facility] Section of Allied Hearing, Speech and Balance Services COCHLEAR IMPLANT ADULT PROGRAMMING Name: Amy ALFARO [facility]#: [id number] Date of Service: July 21, 2023 Date of : 1980 Age: [age] year old COCHLEAR IMPLANT INFORMATION (see below for all device details) Updated: July 21, 2023 Right ear: Phonak Audeo [employer] Hearing Aid that was fit at an outside facility (November 2021) and is being managed by that facility. Left ear: External Processor: Cochlear Zafin [id number] (Nucleus 8; upgraded around January 2023) Processor SN: [id number] Processor ([id number]) SN: [id number] Magnet strength: 2 Internal Device: Cochlear [id number] Profile with Slim Modiolar Electrode Array Internal Device SN: [id number] Inactive electrodes: None Surgery Date: 09/02/2017 Initial [...] 6; Sensitivity: 12) before programming. See the [employer] Audiogram for obtained thresholds. 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 NOTE: The contralateral ear was not plugged and muffed during testing. The following testing and results were obtained: Xlbiwtide-Ssgbedm-Xjjwrcojp Words (CNC) Test Condition List # Phonemes [...] hours. * Revie (more content not included)... [facility] 10-10-2022 Miscellaneous Notes Machine Compositor: Katerina Mina Patient: Hasmukh Alfaro 1980 Clinic: [facility] Inorganic Chemistry Teacher: Dr. Yulissa Jaime Appointment Length: 45 Minutes What are you looking to accomplish?: I d like to learn more about the Nucleus 8 and the process of upgrading Recipient's Stated Reason for Upgrading Clinic Request - Inorganic Chemistry Teacher recommended it [employer] - Processor more [...] steps are Acquisition Methods Recipient will receive Itk-bd-Iqxxap cost estimate once order placed Next Steps If recipient decides to move forward with pursuing a Nucleus 8 upgrade and provides us with the necessary order information, we will start an order on their behalf. You will hear from Cochlear s Steerer team, via email/DocuSign to gain your approval or regarding an LMN to allow this patient to move forward in the process. Following completion of the upgrade process, I will invite the recipient to schedule time for a complimentary onboarding with our [employer] team so they can begin to maximize the use of their new Cochlear equipment. documented in this encounter [facility] 10-09-2022 Note HNO ID: [id number] Author: ISRAEL Champion Service: ? Author Type: Inorganic Chemistry Teacher Type: Progress Notes Filed: 10/09/2022 12:58 PM [...] any questions. Upgrade Consultation Clinic Patient Report Machine Compositor: Katerina Mina Patient: Hasmukh Alfaro 1980 Clinic: [facility] Inorganic Chemistry Teacher: Dr. Yulissa Jaime Appointment Length: 45 Minutes What are you looking to accomplish?: I?d like to learn more about the Nucleus 8 and the process of upgrading Recipient's Stated Reason for Upgrading ? Clinic Request - Inorganic Chemistry Teacher recommended it ? [employer] - Processor [...] are Acquisition Methods ? Recipient will receive Bgf-ne-Tgwmrl cost estimate once order placed Next Steps ? If recipient decides to move forward with pursuing a Nucleus 8 upgrade and provides us with the necessary order information, we will start an order on their behalf. You will hear from Cochlear?s Steerer team, via email/DocuSign to gain your approval or regarding an LMN to allow this patient to move forward in the process. Following completion of the upgrade process, I will invite the recipient to schedule time for a complimentary onboarding with our [employer] team so they can begin to maximize the use of their new Cochlear equipment. Katerina Goncalves Au.D., [facility]/A Clinical Inorganic Chemistry Teacher [facility] 10-09-2022 History of Presen t illness [...] any questions. Upgrade Consultation Clinic Patient Report Machine Compositor: Katerina Mina Patient: Hasmukh Alfaro 1980 Clinic: [facility] Inorganic Chemistry Teacher: Dr. Yulissa Jaime Appointment Length: 45 Minutes What are you looking to accomplish?: I d like to learn more about the Nucleus 8 and the process of upgrading Recipient's Stated Reason for Upgrading Clinic Request - Inorganic Chemistry Teacher recommended it [employer] - Processor more [...] steps are Acquisition Methods Recipient will receive Obn-wd-Mqyjqd cost estimate once order placed Next Steps If recipient decides to move forward with pursuing a Nucleus 8 upgrade and provides us with the necessary order information, we will start an order on their behalf. You will hear from Cochlear s Steerer team, via email/DocuSign to gain your approval or regarding an LMN to allow this patient to move forward in the process. Following completion of the upgrade process, I will invite the recipient to schedule time for a complimentary onboarding with our [employer] team so they can begin to maximize the use of their new Cochlear equipment. Katerina Goncalves Au.D., [facility]/A Clinical Inorganic Chemistry Teacher documented in this encounter [facility] 09-24-2022 Note HNO ID: [id number] Author: Rimma Sterling PA-C Service: ? Author Type: Physician Bone Cooking Operator Type: Progress Notes Filed: 09/24/2022 9:53 AM Note Text: History of Present Illness Ms. AMY ALFARO is a 41 year old year old female presenting for: referred by SELF And is a patient of DO Abel Card DO [address] [place] [address] Communication will be via the electronic record [...] (FLONASE) 50 mcg/actuation nasal spray Use 1 [place] in each nostril as needed. multivitamin (DAILY [...] Medical Decision Making Level: 2 - Straightforward [facility] 09-24-2022 Instructions Rimma Sterling PA-C - 09/24/2022 9:[address] Audra Umanzor use his name on paperwork documented in this encounter [facility] 09-24-2022 History of Presen t illness Narrative History of Present Illness Ms. AMY ALFARO is a 41 year old year old female presenting for: referred by SELF And is a patient of DO Abel Card DO [address] [place] [address] Communication will be via the electronic record [...] (FLONASE) 50 mcg/actuation nasal spray Use 1 [place] in each nostril as needed. multivitamin (DAILY [...] 2 - Straightforward documented in this encounter [facility] 07-18-2022 Note EXAMINATION: US PELV IS HISTORY: Surgical procedure COMPARISON: Ultrasound less than 14 weeks 07/16/2022 TECHNIQUE: Transabdominal and transvaginal sonographic examination. FINDINGS: Final images show an empty endometrial cavity. IMPRESSION: 1. No appreciable products of conception within endometrial cavity following dilation and curettage. Electronically authenticated by: ALEXI BRANCH Date: 2022-07-18 08:21 [facility] 11-24-2021 Evaluation note Encounter Date Diagnosis [...] Fungal rash of trunk (ICD-10 - B36.9) [employer] Other Evaluation note* Diagnosis Cochlear implant in place- Primary Other postprocedural status Sensorineural hearing loss, asymmetrical Sensorineural hearing loss, bilateral [facility] Low blood pressure reading Nonspecific low blood pressure reading Dizziness Dizziness and giddiness Feeling faint Third trimester state, incidental [facility] Third trimester state, incidental Small for gestational age (SGA) [facility] N[facility] - Reported* Type Description Date Medical History bilateral hearing loss Surgical History cochlear implant Surgical History D&C [employer] Other Summary Purpose Family History No Family History Records FoundNo Family History Records FoundNo Family History Records Found Advance Directives No Advanced Directives Records FoundNo Advanced Directives Records FoundNo Advanced Directives Records Found Additional Source Comments REASON FOR VISIT (unrecogniz ed section and content) Reason Comments Hearing Loss New. Self referral. CI LT side. Last audio 03/18/22. Denies otalgia and otorrhea. Reason Comments Javascript Web Developer - Other Reason Comments Dizziness Hypotension Reason Comments Routine Visit INFORMATION SOURCE (unrecogn ized section and content) DATE CREATED AUTHOR 07/30/2022 [facility] DATE CREATED AUTHOR AUTHOR'S ORGANIZ ATION 07/22/2023 [facility] DATE CREATED AUTHOR AUTHOR'S ORGANIZ ATION 09/04/2023 [facility] EPIC Source Comments (unrecognize d section and content) In the event this informatio n is protected by the Federal Confidentiality of Alcohol and Drug Abuse Patient Records regulations: The Federal rules restrict any use of the information to criminally investigate or prosecute any alcohol or drug abuse patient[facility] the event this information is protected by the Federal Confidentiality of Alcohol and Drug Abuse Patient Records regulations: The Federal rules restrict any use of the information to criminally investigate or prosecute any alcohol or drug abuse patient.[facility] the event this information is protected by the Federal Confidentiality of Alcohol and Drug Abuse Patient Records regulations: The Federal rules restrict any use of the information to criminally investigate or prosecute any alcohol or drug abuse patient.[facility] Care Teams (unrecognized sec tion and content) Delivery Technician Relationship Specialty Start Date End Date Abel Sun PCP - General [facility] 03/15/14 Delivery Technician Relationship Specialty Start Date End Date Abel Sun PCP - General [facility] 03/15/14 Delivery Technician Relationship Specialty Start Date End Date Abel Sun PCP - [facility] 03/15/14 Delivery Technician Relationship Specialty Start Date End Date Ariel Rajan MD [address] [place] [address] [facility] 02/16/23 Delivery Technician Relationship Specialty Start Date End Date Ariel Rajan MD [address] [place] [address] [facility] 02/16/23 FOR RECORDS PERTAINING TO PATIENTS [...] ON THE PRIMARY CLINICAL RECORDS. [facility] provides no warranty or guarantee of the accuracy or completeness of information in this document.
[2023-09-08] MEDS: 0.9 % SODIUM CHLORIDE 1,000 ML 125 ML IV ×2 (11:10→16:34)
[2023-09-08] MEDS: OXYTOCIN/0.9 % SODIUM CHLORIDE 10 UNITS/500 ML PLAST..BAG 6 UNIT IV (11:11)
[2023-09-08 11:55] LABS: Hematocrit 35.9 % (36.0-48.0); Hemoglobin 11.8 g/dL (12.0-16.0); Mean Corpuscular HGB Conc 32.9 g/dL (29.9-35.2); Mean Corpuscular Hemoglobin 30.6 pg (26.7-34.0); Mean Platelet Volume 11.6 fL (9.5-13.5); Platelet Count 207 10^3/uL (150-450); Red Blood Count 3.86 10^6/uL (4.20-5.40); Red Cell Distribution Width 14.7 % (11.0-15.0); White Blood Count 7.7 10^3/uL (4.0-11.0)
[2023-09-08 12:09] LABS: Amphetamine Screen Urine NEGATIVE (NEGATIVE); Barbiturates Screen Urine NEGATIVE (NEGATIVE); Benzodiazepines Screen Urine NEGATIVE (NEGATIVE); Buprenorphine Screen Urine NEGATIVE (NEGATIVE); Cannabinoid Screen Urine NEGATIVE (NEGATIVE); Cocaine Screen Urine NEGATIVE (NEGATIVE); Methadone Screen Urine NEGATIVE (NEGATIVE); Methamphetamines Screen Urine NEGATIVE (NEGATIVE); Opiate Screen Urine NEGATIVE (NEGATIVE); Oxycodone Screen Urine NEGATIVE (NEGATIVE); Phencyclidine Screen Urine NEGATIVE (NEGATIVE); Tricyclic Antidepressant Urine NEGATIVE (NEGATIVE)
[2023-09-08] MEDS: 0.9 % SODIUM CHLORIDE 1,000 ML 999 ML IV (19:25)
[2023-09-08] MEDS: OXYTOCIN/0.9 % SODIUM CHLORIDE 20 UNITS/1,000 ML PLAST..BAG 999 UNIT IV (20:26)
--- NOTE | 2023-09-08 20:36 | PM.OBPRCVD ---
Procedure Intrapartal events: None Induction method: per pitocin protocol Delivery augmentation: rupture of membranes and pitocin Delivery monitor: external FHT and external uterine Route of delivery: Episiotomy Description: left mediolateral L&D Laceration Description: perineal - 2nd degree Delivery repair: Vicryl Estimated blood loss (mL): 200 Anesthesia type: saddle block Disposition: floor Delivery date: 09/08/23 Gender: male presentation: vertex Placental delivery description: Spontaneous cord description: 3 Vessels
--- NOTE | 2023-09-08 21:15 | PC.NURSE ---
RN assessing patient. bladder not palpable. pt states she does not feel as though she needs to urinate at this time
[2023-09-08] MEDS: IBUPROFEN 600 MG TABLET PO (21:27)
[2023-09-08] MEDS: BENZOCAINE/MENTHOL 85 GRAM SPRAY BOTTLE 1 APPLIC TOPICAL (22:15)
[2023-09-08] MEDS: GLYCERIN/WITCH HAZEL PADS 1 PAD TOPICAL (22:15)
--- NOTE | 2023-09-08 22:15 | PC.NURSE ---
bladder releases with fundal assessment
[2023-09-09] VITALS (10 sets, daily range): BP systolic 115–124; BP diastolic 56–61; PULSE 68–78; RESP 14–18; TEMP 36.6–36.8
[2023-09-09] MEDS: IBUPROFEN 600 MG TABLET PO ×3 (04:54→21:26)
[2023-09-09 06:02] LABS: Basophils Percent Auto 0.2 % (0.2-2.0); Eosinophils Absolute Auto 0.2 10^3/uL (0.0-0.7); Eosinophils Percent Auto 1.2 % (0.9-7.0); Hematocrit 33.5 % (36.0-48.0); Immature Granulocytes Abs Auto 0.04 10^3/uL (0.00-0.03); Immature Granulocytes Pct Auto 0.3 % (0.0-0.5); Lymphocytes Absolute Auto 1.5 10^3/uL (1.2-3.8); Lymphocytes Percent Auto 12.2 % (20.5-60.0); Mean Corpuscular HGB Conc 32.8 g/dL (29.9-35.2); Mean Corpuscular Volume 94.4 fL (81.0-99.0); Mean Platelet Volume 10.8 fL (9.5-13.5); Monocytes Absolute Auto 1.1 10^3/uL (0.3-0.8); Neutrophils Absolute Auto 9.6 10^3/uL (1.4-6.5); Neutrophils Percent Auto 77.1 % (43.0-75.0); Platelet Count 187 10^3/uL (150-450); Red Blood Count 3.55 10^6/uL (4.20-5.40); Red Cell Distribution Width 14.6 % (11.0-15.0); White Blood Count 12.5 10^3/uL (4.0-11.0)
--- NOTE | 2023-09-09 08:00 | PM.OBPN ---
OB - PN: Subj Subjective Patient comments: no complaints and pain well controlled status: doing well Exam Constitutional Vital Signs, click to edit/add: Last Vital Signs Temp 98.1 F 09/09/23 07:25 Pulse 68 09/09/23 07:24 Resp 18 09/09/23 07:25 BP 121/59 09/09/23 07:24 O2 Del Method Room Air 09/09/23 07:25 Documenting provider has reviewed patient's vital signs: yes Common normals: no apparent distress Respiratory Common normals: normal respiratory effort and clear to auscultation bilaterally Cardio Common normals: regular rate and regular rhythm GI Common normals: Normal to inspection, nondistended, normoactive bowel sounds present Extremity Common normals: no clubbing, cyanosis or edema and no calf tenderness Results Labs Labs: Short CBC 09/08/23 09/09/23 Range/Units 10:45 05:55 WBC 7.7 12.5 H (4.0-11.0) 10^3/uL Hgb 11.8 L 11.0 L (12.0-16.0) g/dL Hct 35.9 L 33.5 L (36.0-48.0) % Plt Count 207 187 (150-450) 10^3/uL OB - PN: A/P Plan - Vaginal Delivery day: 1 Plan: routine care Time Spent with Patient Time: Total time spent is greater than 50% in coordination of care (as documented) at patient's floor/unit and/or counseling patient: Total time spent with greater than 50% in coordination of care (as documented) at patient's floor/unit and/or counseling patient: less than 15 minutes
--- NOTE | 2023-09-09 09:40 | W.PC.ACHO ---
Registration Status: ADM IN Primary Language: Ugandan Preferred Language: Ugandan Active Medications Generic Name Dose Route Start Last Admin Trade Name Freq PRN Reason Stop Dose Admin Acetaminophen 650 mg 09/08/23 20:38 Acetaminophen 325 Mg Tablet PO Q6H PRN Mild Pain Al Hydroxide/Mg Hydroxide 2,400 mg 09/08/23 20:38 Magnesium Hydroxide 2,400 Mg/10 Ml Oral.Susp PO Q6H PRN Dyspepsia Benzocaine/Menthol 1 applic 09/08/23 20:38 09/08/23 22:15 Benzocaine/Menthol 85 Gram [place] Bottle TOPICAL 1 applic Q2H PRN Administration Pain Carboprost Tromethamine 250 mcg 09/08/23 09:53 Carboprost Tromethamine 250 Mcg/Ml 1 Ml Vial IM 09/10/23 09:53 Q15M PRN Bleeding Diphenhydramine HCl 25 mg 09/08/23 17:55 Diphenhydramine Hcl 50 Mg/Ml (1ml) Vial IV 09/09/23 17:57 Q6H PRN Itching Diphtheria/Pertussis/Tetanus Vacc 0.5 ml 09/10/23 09:00 Adacel Diph,Pertuss(Acell),Tet Vac/Pf 0.5 Ml Adult Syringe IM 09/10/23 09:01 .ONCE ONE Docusate Sodium 100 mg 09/09/23 09:00 Docusate Sodium 100 Mg Capsule PO BID JLUIS Ephedrine Sulfate 5 mg 09/08/23 17:55 Ephedrine Sulfate 50 Mg/Ml Vial IV 09/09/23 17:57 Q5M PRN Blood Pressure - Low Sodium Chloride 1,000 mls @ 125 mls/hr 09/08/23 10:00 09/08/23 20:24 Sodium Chloride 0.9% 1,000 Ml IV Infused .Q8H JLUIS Infusion Oxytocin/Sodium Chloride 10 units in 500 mls @ 6 mls/hr 09/08/23 10:00 09/08/23 18:47 Pitocin 10 Unit/500 Ml-Ns IV 0 milliunit/min TITR JLUIS 0 mls/hr Infusion Protocol 2 MILLIUNIT/MIN Ropivacaine/Sodium Chloride 400 mg in 200 mls @ 6 mls/hr 09/08/23 18:00 Naropin 0.2% 400 Mg/200 Ml Bag EPIDURAL Q24H JLUIS Ibuprofen 600 mg 09/08/23 20:38 09/09/23 04:54 Ibuprofen 600 Mg Tablet PO 600 mg Q6H PRN Administration Moderate Pain Lidocaine 5 ml 09/08/23 09:53 Lidocaine Viscous 2% 15 Ml Solution TOPICAL ONCE PRN Pain Lidocaine 1 ml 09/08/23 09:53 Lidocaine Hcl 1% 200 Mg/20 Ml Mdv INJ ONCE PRN Pain Lidocaine 5 ml 09/08/23 17:55 Lidocaine Hcl 2% Pf 100 Mg/5 Ml Vial INJ 09/09/23 17:57 Q1H PRN local anesthetic Measles/Mumps/Rubella Vaccine Live 0.5 ml 09/10/23 09:00 Measles,Mumps,Rubella Vacc/Pf 0.5 Ml Vial SQ 09/10/23 09:01 .ONCE ONE Methylergonovine Maleate 0.2 mg 09/08/23 09:53 Methylergonovine Maleate 0.2 Mg/Ml Ampule IM 09/10/23 09:53 ONCE PRN Uterine Contractility/Contract Methylergonovine Maleate 0.2 mg 09/08/23 09:53 Methylergonovine Maleate 0.2 Mg Tablet PO 09/10/23 09:53 Q4H PRN Uterine Contractility/Contract Misoprostol 600 mcg 09/08/23 09:53 Misoprostol 100 Mcg Tablet PO 09/10/23 09:53 ONCE PRN Uterine Bleeding Misoprostol 800 mcg 09/08/23 09:53 Misoprostol 100 Mcg Tablet SL 09/10/23 09:53 ONCE PRN Uterine Bleeding Misoprostol 1,000 mcg 09/08/23 09:53 Misoprostol [address] 09/10/23 09:53 ONCE PRN Uterine Bleeding Naloxone HCl 0.4 mg 09/08/23 17:55 Naloxone Hcl 0.4 Mg/Ml Vial IV 09/09/23 17:57 ONCE PRN resp depression Ondansetron HCl 4 mg 09/08/23 09:53 Ondansetron Pf 4 Mg/2 Ml Vial IV Q6H PRN Nausea And Vomiting Ondansetron HCl 4 mg 09/08/23 09:53 Ondansetron 4 Mg Rapdis Tablet SL Q6H PRN Nausea And Vomiting Oxytocin 10 unit 09/08/23 09:53 Oxytocin 10 Unit/Ml Vial IM 09/10/23 09:53 ONCE PRN Hemorrhage Senna 17.2 mg 09/08/23 20:00 Sennosides 8.6 Mg Tablet PO QHS PRN Constipation Simethicone 80 mg 09/08/23 20:38 Simethicone 80 Mg Tab.Chew PO QID PRN Abdominal Distention Temazepam 15 mg 09/08/23 20:38 Temazepam 15 Mg Capsule PO QHS PRN Sleep Witch Ira/Glycerin 1 pad 09/08/23 20:38 09/08/23 22:15 Glycerin/Witch Ira Pads TOPICAL 1 pad Q2H PRN Administration Pain Diet Category Date Time Status Regular Consistency Diet Diet 09/08/23 20:38 Active Neurology Patient orientation (short person,place,time,situation list) Respiratory Oxygen Delivery Method Room Air Oxygen Delivery Method Room Air Oxygen Delivery Method Room Air Oxygen Delivery Method Room Air Oxygen Delivery Method Room Air Cardiology Heart Sounds Strong,Regular Bowels Bowel Pattern No Bowel Movement Renal Bladder Pattern Continent
[2023-09-09] MEDS: DOCUSATE SODIUM 100 MG CAPSULE PO (21:26)
[2023-09-10 01:44] VITALS: BP 124/71; PULSE 60
[2023-09-10 01:45] VITALS: RESP 16
[2023-09-10] MEDS: IBUPROFEN 600 MG TABLET PO ×2 (05:00→13:50)
[2023-09-10] MEDS: ACETAMINOPHEN 325 MG TABLET 650 MG PO (07:29)
[2023-09-10 07:30] VITALS: RESP 16
[2023-09-10 07:31] VITALS: BP 115/58; PULSE 74
--- NOTE | 2023-09-10 07:45 | PM.OBPN ---
OB - PN: Subj Subjective Patient comments: no complaints [place] status: doing well Exam Constitutional Vital Signs, click to edit/add: Last Vital Signs Temp 97.9 F 09/09/23 21:30 Pulse 74 09/10/23 07:31 Resp 16 09/10/23 01:45 BP 115/58 09/10/23 07:31 O2 Del Method Room Air 09/10/23 01:45 Documenting provider has reviewed patient's vital signs: yes Common normals: no apparent distress Respiratory Common normals: normal respiratory effort and clear to auscultation bilaterally Cardio Common normals: regular rate and regular rhythm GI Common normals: Normal to inspection, nondistended, normoactive bowel sounds present Extremity Common normals: no clubbing, cyanosis or edema and no calf tenderness OB - PN: A/P Plan - Vaginal Delivery day: 2 Plan: routine care, discharge home and follow up 6 weeks Time Spent with Patient Time: Total time spent is greater than 50% in coordination of care (as documented) at patient's floor/unit and/or counseling patient: Total time spent with greater than 50% in coordination of care (as documented) at patient's floor/unit and/or counseling patient: less than 15 minutes
[2023-09-10] MEDS: DOCUSATE SODIUM 100 MG CAPSULE PO (10:23)
[2023-09-10] MEDS: GLYCERIN/WITCH HAZEL PADS 1 PAD TOPICAL (10:23)
== END 2023-09-10 14:00 | disposition home or self-care (01) | DRG 807 ==
LOC: US 10:00 → FBC 10:00
PROVIDERS: Admitting Provider Obstetrics & Gynecology; PCP Family Medicine; Visit Provider Obstetrics & Gynecology
DX: O36.5930 Maternal care for other known or suspected poor fetal growth, third trimester, not applicable or unspecified (principal); Z37.0 Single live birth; O77.0 Labor and delivery complicated by meconium in amniotic fluid; O70.1 Second degree perineal laceration during delivery; Z3A.38 38 weeks gestation of pregnancy
CPT/HCPCS: 36415; 59050; 59410; 76818; 80307; 85025; 85027; 86850; 86900; 86901; 90471; 90715; 96365; 96366; 96376

== ENCOUNTER 2024-04-26 20:52 | Outpatient (REF) | payer OTHER, SELFPAY ==
--- OUTSIDE RECORDS SUMMARY | 2024-04-26 20:56 | XMS_ITS | CCD ---
Author Organization [facility] Care Team Providers Care Patient Financial Services Manager Name Role Phone Megan Oconnor Unavailable [...] Rajan MD, Ariel Loredo Primary Care Provider [phone] TERESE AGUILA Attending Unavailable POLLO, IVAN Attending Unavailable TERESE AGUILA Attending Unavailable TERESE AGUILA Attending Unavailable POLLO, IVAN Attending Unavailable POLLO, IVAN Attending Unavailable POLLO, IVAN Attending Unavailable POLLO, IVAN Attending Unavailable POLLO, IVAN Attending Unavailable POLLO, IVAN Attending Unavailable MINGO, TERESE Attending Unavailable Allergies Allergy Classification Reported Allergen(s) Allergy Type Date of Onset Reaction(s) Facility (4 sources) Seasonal allergy; Translations: [SEASONAL ALLERGIES] Allergy to substance 4 Cough [facility] (4 sources) Octacosanol Drug Allergy 4 Cough [facility] (4 sources) Other Propensity to adverse reactions 3 Unknown [facility] Medications Current Medications Medication Drug Class(es) Dates Sig (Normalized) Sig (Original) [id number] 200 actuat albuterol 0.09 mg/actuat metered dose [...] on above: Take 1 capsule by mo [facility] as needed. fluticasone propionate 0.05 mg/actuat metered dose nasal spray (3 sources) Corticosteroid fluticasone (FLONASE) 50 mcg/actuation nasal spray Indications: Bilateral sensorineural hearing loss , Autoimmune disorder of inner ear Use 1 [place] in each nostril as needed. 0 Active Comment on above: Use 1 [place] in each nostril as needed. LOW-DOSE ASPIRIN PO (2 sources) Start: 04-02-2023 End: 07-23-2023 LOW-DOSE ASPIRIN PO multivitamin (DAILY MULTIPLE) tablet (3 sources) take 1 tablet by mouth once daily multivitamin (DAILY MULTIPLE) tablet Take 1 tablet by mouth once daily. 0 Active Comment on above: Take [address] [facility] once daily. predniSONE 10 mg oral [...] low weight; and growth retardation (2 sources) Aidcj-rbh-gcevw baby; Translations: [[place] small for gestational age, unspecified weight] 07-30-2023 [...] UA Negative Negative - 4(70) +++ mg/dL [facility] Blood, UA Positive Negative - 50 Bobby/mcL [facility] Comment on above: trace-intact Clarity, UA Clear [facility] re Color, UA Yellow [facility] Health[facility] e Glucose, UA Negative Negative - 1999(110) ++++ mg/dL [facility] Interpretation and review of laboratory results Abnormal [facility] Ketones, UA Negative Negative - 160(16) ++++ mg/dL [facility] Leukocytes, UA Positive Negative - 500+++ Suzette/mcL [facility] Comment on above: small Nitrite, UA Negative Negative - Positive [facility] pH, UA 6.0 5 - 9 [facility] Protein, UA Negative Negative - 1999(20) ++++ mg/dL [facility] Spec Grav, UA 1.010 1 - 1.03 [facility] Urobilinogen, UA 0.2 0.2 - 12 mg/dL [facility]inal[facility] macro (dipstick) panel (U)on 07-23-2023 Bilirubin, UA Negative Negative - 4(70) +++ mg/dL [facility] Blood, UA Negative Negative - 50 Bobby/mcL [facility] Clarity, UA Clear [facility] Healthwa re Color, UA Yellow [facility] Glucose, UA Negative Negative - 1999(110) ++++ mg/dL [facility] Interpretation and review of laboratory results Abnormal [facility] Ketones, UA Negative Negative - 160(16) ++++ mg/dL [facility] Leukocytes, UA Positive Negative - 500+++ Suzette/mcL [facility] Comment on above: small Nitrite, UA Negative Negative - Positive [facility] pH, UA 7.0 5 - 9 [facility] Protein, UA Negative Negative - 1999(20) ++++ mg/dL [facility] Spec Grav, UA 1.015 1 - 1.03 [facility] Urobilinogen, UA 0.2 0.2 - 12 mg/dL [facility] CNOVon 07-21-2023 CNOV Office Visit (OTAUCR ) AMY ALFARO ([id number]) 1980 F Date Time Provider Department 07/21/23 7:30 AM YULISSA JAIME During your visit today, we recorded the following information about you: Yulissa Jaime AUD 07/21/2023 8:47 AM Signed [facility] [place] [facility] COCHLEAR IMPLANT ADULT PROGRAMMING Name: Amy ALFARO [facility]#: [id number] Date of Service: July 21, 2023 Date of : 1980 Age: [age] year old COCHLEAR IMPLANT INFORMATION (see below for all device details) Updated: July 21, 2023 Right ear: Phonak Audeo [facility] Hearing Aid that was fit at an outside facility (November 2021) and is being managed by that facility. 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 NOTE: The contralateral ear was not plugged and muffed during testing. The following testing and results were obtained: Ciwflfkzv-Lzooaez-Zki sonant Words (CNC) Test Condition List # [...] etc. Shoul (more content not included)... Normal [facility] DOMINICAMY Shravan ([id number]) 1980 F Date Time Provider Department 10/10/22 LEO ATKINSON During your visit today, we recorded the following information about you: Leo Atkinson 10/10/2022 3:52 PM Signed Gear Lapping Machine Operator: Katerina Mina Patient: Hasmukh Alfaro 1980 Clinic: [facility] Cash Van Salesperson: Dr. Yulissa Jaime Appointment Length: 45 Minutes What are you looking to accomplish?: I?d like to learn more about the Nucleus 8 and the process of upgrading Recipient's Stated Reason for Upgrading ? Clinic Request - Cash Van Salesperson recommended it ? Useful Life - Processor [...] are Acquisition Methods ? Recipient will receive [id number]-[id number] cost estimate once order placed Next Steps ? If recipient decides to move forward with pursuing a Nucleus 8 upgrade and provides us with the necessary order information, we will start an order on their behalf. You will hear from Cochlear?s Composite Technician team, via email/DocuSign to gain your approval [...] Ma - Fully Assessed Reason for Visit: Personalized Living Assistant - Other [3602] Prescriptions as of 10/10/2022 - predniSONE (DELTASONE) 10 mg tablet Take by mouth four (4) tabs x3 days; then three (3) tabs x3days; then two (2) tabs x3 days; then one (1) tab a day x3 days - DOCUSATE SODIUM (COLACE ORAL) Take 1 tablet by mouth as needed. - fluticasone (FLONASE) 50 mcg/actuation nasal spray Use 1 [place] in each nostril as needed. - multivitamin [...] Encounter Status:Closed by [facility] AMY ALFARO ([id number]) 1980 F Date Time Provider Department 09/24/22 9:30 AM RIMMA STERLING OTOLJAMES During your visit today, we recorded the following information about you: Rimma Sterling PA-C 09/24/2022 9:53 AM Signed History of Present Illness Ms. AMY ALFARO is a 41 year old year old female presenting for: referred by SELF And is a patient of DO Abel Card DO [id number] [id number] Communication will be via the electronic record [...] (FLONASE) 50 mcg/actuation nasal spray Use 1 [place] in each nostril as needed. multivitamin (DAILY [...] ALLERGIES 1 (more content not included)... Normal [facility] CBC AUTO DIFFon 07-29-2022 BASO # 0.0 103/ul Normal 0.0-0.1 [facility] Comment on above: Performed By: #### C BC #### [facility] [address] [place] [address] Dr. Jani Haywood Basophils/100 WBC (Bld) 0.6 % Normal 0.2-2.0 [facility] Comment on above: Performed By: #### C BC #### [facility] [address] [place] [address] Dr. Jani Haywood EO # 0.1 103/ul Normal 0.0-0.7 [facility] Comment on above: Performed By: #### C BC #### [facility] [address] [place] [address] Dr. Jani Haywood Eosinophils/100 WBC (Bld) 2.5 % Normal 0.9-7.0 [facility] Comment on above: Performed By: #### C BC #### [facility] [address] [place] [address] Dr. Jani Haywood Erythrocyte distribution width (RBC) [Ratio] 13.7 % Normal 11.0-15.0 [facility] Comment on above: Performed By: #### C BC #### [facility] [address] [place] [address] Dr. Jani Haywood Hematocrit (Bld) [Volume fraction] 40.3 % Normal 36.0-48.0 [facility] Comment on above: Performed By: #### C BC #### [facility] [address] [place] [address] Dr. Jani Haywood Hemoglobin (Bld) [Mass/Vol] 12.7 g/dL Normal 12.0-16.0 [facility] Comment on above: Performed By: #### C BC #### [facility] [address] [place] [address] Dr. Jani Haywood IG # 0.01 10e3/ul Normal 0.00-0.03 [facility] Comment on above: Performed By: #### C BC #### [facility] [address] [place] [address] Dr. Jani Haywood IG % 0.2 % Normal 0.0-0.5 [facility] Comment on above: Performed By: #### C BC #### [facility] [address] [place] [address] Dr. Jani Haywood LYMPH # 1.8 103/ul Normal 1.2-3.8 [facility] Comment on above: Performed By: #### C BC #### [facility] [address] [place] [address] Dr. Jani Haywood Lymphocytes/100 WBC (Bld) 35.2 % Normal 20.5-60.0 [facility] Comment on above: Performed By: #### C BC #### [facility] [address] [place] [address] Dr. Jani Haywood MANUAL DIFF REQ NO Normal [facility] Comment on above: Performed By: #### C BC #### [facility] [address] [place] [address] Dr. Jani Haywood MCH (RBC) [Entitic mass] 30.5 pg Normal 26.7-34.0 [facility] Comment on above: Performed By: #### C BC #### [facility] [address] [place] [address] Dr. Jani Haywood MCHC (RBC) [Mass/Vol] 31.5 g/dL Normal 29.9-35.2 [facility] Comment on above: Performed By: #### C BC #### [facility] [address] [place] [address] Dr. Jani Haywood MCV (RBC) [Entitic vol] 96.9 fL Normal 81.0-99.0 [facility] Comment on above: Performed By: #### C BC #### [facility] [address] [place] [address] Dr. Jani Haywood MONO # 0.4 103/ul Normal 0.3-0.8 [facility] Comment on above: Performed By: #### C BC #### [facility] [address] [place] [address] Dr. Jani Haywood Monocytes/100 WBC (Bld) 8.1 % Normal 1.7-12.0 [facility] Comment on above: Performed By: #### C BC #### [facility] [address] [place] [address] Dr. Jani Haywood NEUT # 2.8 103/ul Normal 1.4-6.5 [facility] Comment on above: Performed By: #### C BC #### [facility] [address] [place] [address] Dr. Jani Haywood Neutrophils/100 WBC (Bld) 53.4 % Normal 43.0-75.0 [facility] Comment on above: Performed By: #### C BC #### [facility] [address] [place] [address] Dr. Jani Haywood Platelet mean volume (Bld) [Entitic vol] 10.0 fL Normal 9.5-13.5 [facility] Comment on above: Performed By: #### C BC #### [facility] [address] [place] [address] Dr. Jani Haywood PLT 271 103/ul Normal 150-450 [facility] Comment on above: Performed By: #### C BC #### [facility] [address] [place] [address] Dr. Jani Haywood RBC 4.16 106/ul Critically low 4.20-5.40 [facility] Comment on above: Performed By: #### C BC #### [facility] [address] [place] [address] Dr. Jani Haywood WBC 5.2 103/ul Normal 4.0-11.0 [facility] Comment on above: Performed By: #### C BC #### [facility] [address] [place] [address] Dr. Jani Haywood IRONon 07-29-2022 Iron [Mass/Vol] 64.0 ug/dL Normal 50.0-170.0 [facility] Comment on above: Performed By: #### A 1C #### [facility] [address] [place] [address] Dr. Jani Haywood PROF 14(COMP METB)on 023 Albumin [Mass/Vol] 3.5 g/dL Normal 3.4-5.0 [facility] Comment on above: Performed By: #### C MP #### [facility] [address] [place] [address] Dr. Jani Haywood Albumin/Globulin [Mass ratio] 0.9 {ratio} Normal [facility] Comment on above: Performed By: #### C MP #### [facility] [address] [place] [address] Dr. Jani Haywood ALP [Catalytic activity/Vol] 73 U/L Normal 46-116 [facility] Comment on above: Performed By: #### C MP #### [facility] [address] [address] [address] Jani Haywood ALT [Catalytic activity/Vol] 12 U/L Critically low 14-59 [facility] Comment on above: Performed By: #### C MP #### [facility] [address] [place] [address] Dr. Jani Haywood Anion gap [Moles/Vol] 11.0 mmol/L Normal [facility] Comment on above: Performed By: #### C MP #### [facility] [address] [place] [address] Dr. Jani Haywood AST [Catalytic activity/Vol] 13 U/L Critically low 15-37 [facility] Comment on above: Performed By: #### C MP #### [facility] [address] [place] [address] Dr. Jani Haywood Bilirubin [Mass/Vol] 0.5 mg/dL Normal 0.2-1.0 [facility] Comment on above: Performed By: #### C MP #### [facility] [address] [place] [address] Dr. Jani Haywood Calcium [Mass/Vol] 8.6 mg/dL Normal 8.5-10.1 [facility] Comment on above: Performed By: #### C MP #### [facility] [address] [address] [address] Jani Haywood Chloride [Moles/Vol] 105 mmol/L Normal 98-107 [facility] Comment on above: Performed By: #### C MP #### [facility] [address] [place] [address] Dr. Jani Haywood CO2 [Moles/Vol] 28.8 mmol/L Normal 21.0-32.[address] [facility] Comment on above: Performed By: #### C MP #### [facility] [address] [address] [address] Jani Haywood Creatinine [Mass/Vol] 0.87 mg/dL Normal 0.55-1.02 [facility] Comment on above: Performed By: #### C MP #### [facility] [address] [address] [address] Jani Haywood EGFR-AF NIUEAN >60 Normal >=[address] [facility] Comment on above: Performed By: #### C MP #### [facility] [address] [address] [address] Jani Haywood EGFR-NON AF NIUEAN >60 Normal >=60 [facility] Comment on above: Performed By: #### C MP #### [facility] [address] [address] [address] Jani Haywood Globulin (S) [Mass/Vol] 3.7 g/dL Normal [facility] Comment on above: Performed By: #### C MP #### [facility] [address] [address] [address] Jani Haywood Glucose [Mass/Vol] 95 mg/dL Normal 74-106 [facility] Comment on above: Performed By: #### C MP #### [facility] [address] [address] [address] Jani Haywood Potassium [Moles/Vol] 3.8 mmol/L Normal 3.5-5.1 [facility] Comment on above: Performed By: #### C MP #### [facility] [address] [address] [address] Jani Haywood Protein [Mass/Vol] 7.2 g/dL Normal 6.4-8.2 [facility] Comment on above: Performed By: #### C MP #### [facility] [address] [address] [address] Jani Haywood Sodium [Moles/Vol] 141 mmol/L Normal 136-145 [facility] Comment on above: Performed By: #### C MP #### [facility] [address] [place], [place] [address] Dr. Jani Haywood Urea nitrogen [Mass/Vol] 12.0 mg/dL Normal 7.0-18.0 [facility] Comment on above: Performed By: #### C MP #### [facility] [address] [place], [place] [address] Dr. Jani Haywood Urea nitrogen/Creatinine [Mass ratio] 13.8 mg/mg Normal [facility] Comment on above: Performed By: #### C MP #### [facility] [address] [place], [place] [address] Dr. Jani Haywood Covid-19 PCR ([facility])on 06-23 SARS-CoV-2 (COVID-19) RNA CAROLE+probe Ql (Unsp spec) Not detected Normal NOT DETECTED [facility] Comment on above: Result Comment: This test is not yet approved or cleared by the [place] FDA. When there are no FDA-approved or cleared tests available, and other criteria are met, FDA can make tests available under an emergency access mechanism called an Emergency Use Authorization (EUA). The EUA for this test is supported by the Preservationist of Health and Human Service's (HHS's) declaration [...] SARS-CoV-2. Performed By: #### C VDTB #### [facility] [address] [id number] Jani Haywood US PREG <14 WKSon [...] was notified of these findings by the glass bulb machine adjuster at time of imaging. Electronically authenticated by: ALEXI BRANCH Date: 2022-07-16 13:36 Normal [facility] HEP B SURFACE ANTIGEN SCREEN on 07-03-2022 HBsAg Screen Negative Normal Negative [facility] Comment on above: Performed By: #### A 1C #### [facility] [address] [place] [address] Dr. Jani Haywood HEPATITIS C VIRUS AB W/ REFL EX QUANTon 07-03-2022 HCV AB <0.1 Normal 0.0-0.9 [facility] Comment on above: Performed By: #### H CVPCRR #### [facility] [address] [place] [address] Dr. Jani Haywood Interpretation: Comment Normal [facility] Comment on above: Result Comment: Nega tive Not infected with HCV, unless recent infection is suspected or other evidence exists to indicate HCV infection. Performed By: #### H CVPCRR #### [facility] [address] [address] [address] Jani Haywood HIV 1 AND 2 WITH REFLEXon HIV Screen 4th Generation wRfx Non-Reactive Normal Non Reactive [facility] Comment on above: Result Comment: HIV Negative HIV-1/HIV-2 antibodies and HIV-1 p24 antigen were NOT detected. There is no laboratory evidence of HIV infection. Performed By: #### H IV12 #### [facility] [address] [place] [address] Dr. Jani Haywood RPR QUANTon 07-03-2022 Rapid Plasma Reagin, Quant Non-Reactive Normal NonRea<1:1 [facility] Comment on above: Result Comment: Plea se Note: This test does not meet current guidelines for screening and diagnosis of syphilis. This test is intended for following treatment response in patients being treated for syphilis infection. To screen for syphilis infection, a reflex cascade that includes both RPR and a treponema-specific assay should be utilized, such as Treponema pallidum (Syphilis) Screening Clarion (414408) or Rapid Plasma Reagin (RPR) Test With Reflex to Quantitative RPR and Confirmatory Treponema pallidum Antibodies (464313). Performed By: #### R PRQ #### [facility] [address] [place] [address] Dr. Jani Haywood RUBELLA AB IGGon 07-03-2022 Rubella Antibodies, IgG 2.92 index Normal Immune >0.99 [facility] Comment on above: Result Comment: Non- immune <0.90 Equivocal 0.90 - 0.99 Immune >0.99 Performed By: #### A 1C #### [facility] [address] [place] [address] Dr. Jani Haywood CBC AUTO DIFFon 07-02-2022 BASO # 0.1 103/ul Normal 0.0-0.1 [facility] Comment on above: Performed By: #### C BC #### [facility] [address] [place] [address] Dr. Jani Haywood Basophils/100 WBC (Bld) 0.7 % Normal 0.2-2.0 [facility] Comment on above: Performed By: #### C BC #### [facility] [address] [place] [address] Dr. Jani Haywood EO # 0.1 103/ul Normal 0.0-0.7 [facility] Comment on above: Performed By: #### C BC #### [facility] [address] [place] [address] Dr. Jani Haywood Eosinophils/100 WBC (Bld) 1.2 % Normal 0.9-7.0 [facility] Comment on above: Performed By: #### C BC #### [facility] [address] [place] [address] Dr. Jani Haywood Erythrocyte distribution width (RBC) [Ratio] 13.7 % Normal 11.0-15.0 [facility] Comment on above: Performed By: #### C BC #### [facility] [address] [place] [address] Dr. Jani Haywood Hematocrit (Bld) [Volume fraction] 37.9 % Normal 36.0-48.0 [facility] Comment on above: Performed By: #### C BC #### [facility] [address] [place] [address] Dr. Jani Haywood Hemoglobin (Bld) [Mass/Vol] 12.6 g/dL Normal 12.0-16.0 [facility] Comment on above: Performed By: #### C BC #### [facility] [address] [place] [address] Dr. Jani Haywood IG # 0.02 10e3/ul Normal 0.00-0.03 [facility] Comment on above: Performed By: #### C BC #### [facility] [address] [place] [address] Dr. Jani Haywood IG % 0.3 % Normal 0.0-0.5 [facility] Comment on above: Performed By: #### C BC #### [facility] [address] [place] [address] Dr. Jani Haywood LYMPH # 1.6 103/ul Normal 1.2-3.8 [facility] Comment on above: Performed By: #### C BC #### [facility] [address] [place] [address] Dr. Jani Haywood Lymphocytes/100 WBC (Bld) 21.5 % Normal 20.5-60.0 [facility] Comment on above: Performed By: #### C BC #### [facility] [address] [place] [address] Dr. Jani Haywood MANUAL DIFF REQ NO Normal [facility] Comment on above: Performed By: #### C BC #### [facility] [address] [place] [address] Dr. Jani Haywood MCH (RBC) [Entitic mass] 30.4 pg Normal 26.7-34.0 [facility] Comment on above: Performed By: #### C BC #### [facility] [address] [address] [address] Jani Haywood MCHC (RBC) [Mass/Vol] 33.2 g/dL Normal 29.9-35.2 [facility] Comment on above: Performed By: #### C BC #### [facility] [address] [address] [address] Jani Haywood MCV (RBC) [Entitic vol] 91.3 fL Normal 81.0-99.0 [facility] Comment on above: Performed By: #### C BC #### [facility] [address] [address] [address] Jani Haywood MONO # 0.5 103/ul Normal 0.3-0.8 [facility] Comment on above: Performed By: #### C BC #### [facility] [address] [place] [address] Dr. Jani [place] Monocytes/100 WBC (Bld) 6.6 % Normal 1.7-12.0 [facility] Comment on above: Performed By: #### C BC #### [facility] [address] [place] [address] Dr. Jani Haywood NEUT # 5.1 103/ul Normal 1.4-6.5 [facility] Comment on above: Performed By: #### C BC #### [facility] [address] [place] [address] Dr. Jani Haywood Neutrophils/100 WBC (Bld) 69.7 % Normal 43.0-75.0 [facility] Comment on above: Performed By: #### C BC #### [facility] [address] [place] [address] Dr. Jani Haywood Platelet mean volume (Bld) [Entitic vol] 10.2 fL Normal 9.5-13.5 [facility] Comment on above: Performed By: #### C BC #### [facility] [address] [place] [address] Dr. Jani Haywood PLT 281 103/ul Normal 150-450 [facility] Comment on above: Performed By: #### C BC #### [facility] [address] [address] [address] Jani Haywood RBC 4.15 106/ul Critically low 4.20-5.40 [facility] Comment on above: Performed By: #### C BC #### [facility] [address] [address] [address] Jani Haywood WBC 7.3 103/ul Normal 4.0-11.0 [facility] Comment on above: Performed By: #### C BC #### [facility] [address] [place] [address] Dr. Jani Haywood GLYCOHEMOGLOBIN A1Con 2022 ADA RECOMMENDATION SEE BELOW Normal [facility] Comment on above: Result Comment: ADA RECOMMENDED LIMIT 4.0 - 6.0 ADA THERAPEUTIC TARGET < 7.0 ACTION SUGGESTED > 7.0 Performed By: #### A 1C #### [facility] [address] [place] [address] Dr. Jani Haywood Glucose [Mass/Vol] 103 mg/dL Normal [facility] Comment on above: Performed By: #### A 1C #### [facility] [address] [place] [address] Dr. Jani Haywood HbA1c (Bld) [Mass fraction] 5.2 % Normal 4.5-6.2 [facility] Comment on above: Performed By: #### A 1C #### [facility] [address] [place] [address] Dr. Jani Haywood CRISTELA BOX TEST PT SEND OUTo n 07-02-2022 SENT TO REF LAB 07/02/2022 Normal [facility] Comment on above: Performed By: #### N BOX #### [facility] [address] [place] [address] Dr. Jani Haywood TYPE AND SCREENon 07-02-2022 TYPE AND SCREEN Negative Normal [facility] Comment on above: Performed By: #### A 1C #### [facility] [address] [place] [address] Dr. Jani Haywood US PREG TVon 06-18-2022 [...] by: RIMMA BATRES Date: 2022-06-18 16:09 Normal [facility] PAP ACOG PANEL 2: 30 to 65on 12-03-2021 . . Normal [facility] Comment on above: Result Comment: Perf ormed at: WB Performed By: #### [id number] #### [facility] [address] [place] [address] Dr. Jani Haywood Age Gdln ACOG Testing 30-65 Normal [facility] Comment on above: Performed By: #### [id number] #### [facility] [address] [place] [address] Dr. Jani Haywood DIAGNOSIS: Comment Normal [facility] Comment on above: Result Comment: NEGA TIVE FOR INTRAEPITHELIAL LESION OR MALIGNANCY. Performed at: WB Performed By: #### [id number] #### [facility] [address] [place] [address] Dr. Jani Haywood HPV Aptima Negative Normal Negative [facility] Comment on above: Result Comment: This nucleic acid amplification test detects fourteen high-risk HPV types (16,18,31,33,35,39,45,51,52,56,58,59,66,68) without differentiation. Performed at: =G Performed By: #### [id number] #### [facility] [address] [address] [address] Jani Haywood Methodology: Comment Normal [facility] Comment on above: Result Comment: This liquid based ThinPrep(R) pap test was screened with the use of an image guided system. Performed at: WB Performed By: #### [id number] #### [facility] [address] [place] [address] Dr. Jani Haywood Note: Comment [facility] Comment on above: Result Comment: The Pap smear is a screening test designed to aid in the detection of premalignant and malignant conditions of the uterine cervix. It is not a diagnostic procedure and should not be used as the sole means of detecting cervical cancer. Both false-positive and false-negative reports do occur. . Performed at: WB Performed By: #### [id number] #### [facility] [address] [address] [address] Jani Haywood Performed by: Comment Normal [facility] Comment on above: Result Comment: Nikki Schwab, Dairy Clerk (ASCP) Performed at: WB Performed By: #### [id number] #### [facility] [address] [place] [address] Dr. Jani [place]wood Specimen adequacy: Comment Normal [facility] Comment on above: Result Comment: Sati sfactory for evaluation. Endocervical and/or squamous metaplastic cells (endocervical component) are present. Performed at: WB Performed By: #### [id number] #### [facility] [address] [place] [address] Dr. Jani Hawyood Vital Signs Date Time Vital Sign Value Performing Clinician Facility 07-30-2023 09:32-0500 Body mass index (BMI) [Ratio] 25.88 kg/m2 Social Pulse Work Phone: [facility] 07-30-2023 09:32-0500 Body weight 66.28 kg Ivan Pollo DO Work Phone: [facility] 07-30-2023 09:32-0500 Diastolic blood pressure 60 mm[Hg] Ivan Pollo DO Work Phone: [facility] 07-30-2023 09:32-0500 Systolic blood pressure 100 mm[Hg] Ivan Pollo [employer]ult Work Phone: [facility] 07-23-2023 14:33-0500 Body mass index (BMI) [Ratio] 26.24 kg/m2 Terese REYES Work Phone: [facility] 07-23-2023 14:33-0500 Body weight 67.19 kg Terese REYES Work Phone: [facility] 07-23-2023 14:33-0500 Diastolic blood pressure 68 mm[Hg] Terese REYES Work Phone: [facility] 07-23-2023 14:33-0500 Systolic blood pressure 110 mm[Hg] Terese REYES Work Phone: [facility] 11-24-2021 14:10-0400 Body height 160.02 cm Megan Sorensenault Other [employer] Other 11-24-2021 14:10-0400 Body mass index (BMI) [Ratio] 20.55 kg/m2 Megan Sorensenault Other [employer] Other 11-24-2021 14:10-0400 Body temperature 96.9 [degF] Megan Sorensenault Other [employer] Other 11-24-2021 14:10-0400 Body weight 52.62 kg Megan Sorensenault Other [employer] Other 11-24-2021 14:10-0400 SaO2% (BldA) [Mass fraction] 97 % Megan Sorensenault Other [employer] Other Encounters Encounter Date Encounter Type Care Provider Facility Start: 10-20-2023 End: 10-20-2023 ambulatory TERESE AGUILA Not Available Start: 09-03-2023 End: 09-03-2023 ambulatory IVAN POLLO Not Available Start: 08-27-2023 End: 08-27-2023 ambulatory IVAN POLLO Not Available Start: 08-20-2023 End: 08-20-2023 ambulatory IVAN POLLO Not Available Start: 08-13-2023 End: 08-13-2023 ambulatory IVAN POLLO Not Available Start: 07-30-2023 End: 07-30-2023 ambulatory IVAN POLLO Not Available Start: 07-30-2023 End: 07-30-2023 flow sheet Ivan Pollo DO Work Phone: [facility] Comment on above: Third trimester preg luan; Small for gestational age (SGA) Start: 07-23-2023 End: 07-23-2023 ambulatory TERESE AGUILA Not Available Start: 07-23-2023 End: 07-23-2023 flow sheet Terese Aguila PA Work Phone: [facility] Comment on above: Low blood pressure r eading; Dizziness; Feeling faint; Third trimester Start: 07-21-2023 End: 07-21-2023 ambulatory YULISSA JAIME Facility:[facility] Start: 07-15-2023 End: 07-15-2023 ambulatory TERESE AGUILA Not Available Start: 07-01-2023 End: 07-01-2023 ambulatory IVAN POLLO Not Available Start: 06-18-2023 End: 06-18-2023 ambulatory TERESE MINGO Not Available Start: 05-20-2023 End: 05-20-2023 ambulatory IVAN POLLO Not Available Start: 10-10-2022 Telephone encounter Leo At[facility] [place] Comment on above: Personalized Living Assistant - O ther Start: 10-09-2022 ambulatory Yulissa WOOD Work Phone: Audiology Start: 09-24-2022 End: 09-24-2022 ambulatory RIMMA [place]ER[place]ING Facility:[facility] Start: 09-24-2022 End: 09-24-2022 Patient encounter procedure Rimma [place] PA-C Work Phone: Otolaryngology Comment on above: Cochlear implant in place (Primary Dx); Sensorineural hearing loss, asymmetrical; Sensorineural hearing loss, bilateral Start: 07-29-2022 End: 07-30-[address] AREIL RAJAN Facility:[facility] Start: 07-18-2022 End: 07-18-[address] ROSA CAMPOS Facility:[facility] Start: 07-17-2022 Encounter for preprocedural laboratory examination DR ROSA CAMPOS [facility] Start: 07-16-2022 End: 07-17-[address] ROSA CAMPOS Facility:[facility] Start: 07-16-2022 End: 07-17-2022 Encounter for preprocedural laboratory examination DR ROSA CAMPOS Facility:[facility] Start: 07-02-2022 End: 07-03-[address] ROSA CAMPOS Facility:[facility] Start: 06-18-2022 End: 06-19-[address] ROSA CAMPOS Facility:[facility] Start: 11-27-2021 End: 11-27-[address] ROSA CAMPOS Facility:[facility] Start: 11-24-2021 End: 11-24-2021 ambulatory Megan Oconnor Other [employer] Other Start: 11-24-2021 Office outpatient vi sit [...] (3 - PPSV23 if available, else PCV20) [facility] Start: 04-22-2028 Screening for malign ant neoplasm of cervix [facility] Start: 04-26-2024 End: 04-26-2024 Patient encounter procedure 04/26/2024 9:00 AM EST Office Visit [facility] [address] [place] [id number] Ivan Abad, DO [address], [place] [id number] [facility] Start: 08-13-2023 End: 08-13-2023 Patient encounter procedure 08/13/2023 11:20 AM EST Routine [facility] [address] [place] [address] Ivan Abad, DO [address] [place] [address] [facility] Start: 07-30-2023 End: 07-30-2024 US biophysical profile w non stress test US biophysical profile w non stress test Imaging Routine Small for gestational age (SGA) Expected: 07/30/2023 (Approximate), Expires: 07/30/2024 [facility] Work Phone: Comment on above: Expected: 07/30/2023 (Approximate), Expires: 07/30/2024 Start: 07-30-2023 End: 07-30-2023 Patient encounter procedure 07/30/2023 9:20 AM EST Routine [facility] [address] [place] [address] Ivan Abad, DO [address] [place] [address] [facility] Start: 07-23-2023 End: 07-23-2023 Professional / ancillary services management 07/23/2023 3:00 PM EST Ancillary Procedure [facility] [address] [place] [address] [facility] Start: 02-20-2023 Influenza vaccination C [facility] Start: 06-22-2022 DEPRESSION ASSESSMENT DEPRESSION ASS ESSMENT [facility] Start: 10-20-2021 COVID-19 VACCINE (3 - Booster for Pfizer series) COVID-19 VACCINE (3 - Booster for Pfizer series) [facility] Start: 2019 Mammography MAMMOGRAM [facility] Start: 2019 Screening for malign ant neoplasm of breast Mammogram [facility] Start: 11-17-2009 HPV TESTING HPV TESTING [facility] Start: 11-17-2000 PAP TESTING PAP TESTING [facility] Start: 11-17-1998 Urine microalbumin profile DTAP,TDAP,TD (1 - Tdap) [facility] Start: 11-17-1997 HEPATITIS C SCREENING HEPATITIS C SC JOSE [facility] Start: 11-17-1997 HIV SCREENING HIV SCREENING [facility] Start: 1980 HEPATITIS B (1 of 3 - 3-dose series) HEPATITIS B (1 of 3 - 3-dose series) [facility] Immunizations Immunization Date Immunization Notes Care Provider Fa cility 03-22-2020 influenza virus vacc ine, unspecified formulation Terese REYES Work Phone: [facility] 08-13-2017 pneumococcal polysaccharide vaccine, 23 valent Rimma [place] PA-C Work Phone: [facility] 08-10-2014 pneumococcal conjuga te vaccine, 13 valent Rimma [place] PA-C Work Phone: [facility] Payers Date Payer Category Payer Private Health Insurance [id number] 2022 Unknown [id number] 2022 Unknown [id number] 1980 Unknown [id number] 2.16.84 [id number] 1979 Unknown [id number] 2.16.84 0.1.179055.3.579.2.593 1979 Unknown [id number] 2.16.84 0.1.603953.3.579.2.593 1979 Unknown [id number] 2.16.84 0.1.503825.3.579.2.593 1979 Unknown [id number] 2.16.84 0.1.826847.3.579.2.593 1979 Unknown [id number] 2.16.84 0.1.269331.3.579.2.593 1979 Unknown [id number] 2.16.84 0.1.125255.3.579.2.593 1979 Unknown [id number] 2.16.84 0.1.436866.3.579.2.1258 1979 Unknown [id number] 2.16.84 0.1.753815.3.579.2.1258 1979 Unknown [id number] 2.16.84 0.1.722225.3.579.2.1258 1979 Unknown [id number] 2.16.84 0.1.590763.3.579.2.1258 1979 Unknown [id number] 2.16.84 0.1.893560.3.579.2.1258 1979 Unknown [id number] 2.16.84 0.1.017850.3.579.2.1258 1979 Unknown [id number] 2.16.84 0.1.625414.3.579.2.1258 1979 Unknown [id number] 2.16.84 0.1.347584.3.579.2.1258 1979 Unknown [id number] 2.16.84 0.1.981634.3.579.2.1258 1979 Unknown [id number] 2.16.840 .1.794489.3.579.2.1258 1979 Unknown [id number] 2.16.840 .1.886443.3.579.2.9 1960 [facility] [id number] 2.16.840.1.704531.19 Unknown [id number] 2.16.84 0.1.287860.3.579.2.593 Social History Date Type Detail Facility Start: 03-16-2023 Sex Assigned At [employer] Other Start: 09-24-2022 End: 03-16-2023 Tobacco smoking status HIIS Never smoked tobacco [facility] Start: 09-24-2022 End: 03-16-2023 Tobacco use and exposure Smokeless tobacco non-user [facility] Start: 09-24-2022 Alcohol intake Current non-drinker of alcohol (finding) [facility] Start: 1980 Sex Assigned At Female [facility] Start: 07-23-2023 End: 07-30-2023 Alcohol intake Ex-drinker (finding) [facility] Start: 03-16-2023 History of Social function [facility] Start: 04-22-2023 Alcohol Comment occasional alcohol use, Caffeine intake: none [facility] Start: 12-25-2022 [facility] Start: 01-21-2023 Gender identity Identifies as female gender (finding) [facility] Start: 01-21-2023 Sexual orientation Heterosexual (finding) [facility] Medical Equipment Procedure Code Equipment Code Equipment Original Text Equipment Identifier Dates [id number] Implant - [id number] Start: 09-02-2017 Comment on above: Description: [...] Ivan Abad DO documented in this encounter [facility] 07-23-2023 History of Presen t [...] of: ERIC [place] documented in this encounter [facility] 07-21-2023 Note HNO ID: [id number] Author: YULISSA JAIME AUD Service: ? Author Type: Cash Van Salesperson Type: Progress Notes Filed: 07/21/2023 08:47 Note Text: [facility] [place] [facility] COCHLEAR IMPLANT ADULT PROGRAMMING Name: Amy ALFARO CC#: [id number] Date of Service: July 21, 2023 Date of : 1980 Age: [age] year old COCHLEAR IMPLANT INFORMATION (see below for all device details) Updated: July 21, 2023 Right ear: Phonak Audeo [employer]ITE Hearing Aid that was fit at an outside facility (November 2021) and is being managed by that facility. Left ear: External Processor: Cochlear [employer]aring [id number] (Nucleus 8; upgraded around January 2023) Processor SN: [id number] Processor ([id number]) SN: [id number] Magnet strength: 2 Internal Device: Cochlear [id number] Profile with Slim Modiolar Electrode Array Internal Device SN: [id number] Inactive electrodes: None Surgery Date: 09/02/2017 Initial [...] Speech perception testing was completed at 60 dance studio manager using recorded stimuli in the sound field at 0 degrees azimuth. NOTE: The contralateral ear was not plugged and muffed during testing. The following testing and results were obtained: Gpsntdrek-Pcmvqts-Wzunqfzfn Words (CNC) Test Condition List # Phonemes [...] hours. * Revie (more content not included)... [facility] 10-10-2022 Miscellaneous Notes Gear Lapping Machine Operator: Katerina Mina Patient: Hasmukh Alfaro 1980 Clinic: [facility] Cash Van Salesperson: Dr. Yulissa Jaime Appointment Length: 45 Minutes What are you looking to accomplish?: I d like to learn more about the Nucleus 8 and the process of upgrading Recipient's Stated Reason for Upgrading Clinic Request - Cash Van Salesperson recommended it [employer] - Processor more [...] steps are Acquisition Methods Recipient will receive Azt-nh-Uwynah cost estimate once order placed Next Steps If recipient decides to move forward with pursuing a Nucleus 8 upgrade and provides us with the necessary order information, we will start an order on their behalf. You will hear from Cochlear s Composite Technician team, via email/DocuSign to gain your approval or regarding an LMN to allow this patient to move forward in the process. Following completion of the upgrade process, I will invite the recipient to schedule time for a complimentary onboarding with our [employer] team so they can begin to maximize the use of their new Cochlear equipment. documented in this encounter [facility] 10-09-2022 Note HNO ID: [id number] Author: ISRAEL Champion Service: ? Author Type: Cash Van Salesperson Type: Progress Notes Filed: 10/09/2022 12:58 PM [...] any questions. Upgrade Consultation Clinic Patient Report Gear Lapping Machine Operator: Katerina Mina Patient: Hasmukh Alfaro 1980 Clinic: [facility] Cash Van Salesperson: Dr. Yulissa Jaime Appointment Length: 45 Minutes What are you looking to accomplish?: I?d like to learn more about the Nucleus 8 and the process of upgrading Recipient's Stated Reason for Upgrading ? Clinic Request - Cash Van Salesperson recommended it ? [employer] - Processor [...] are Acquisition Methods ? Recipient will receive Wnk-fq-Hausix cost estimate once order placed Next Steps ? If recipient decides to move forward with pursuing a Nucleus 8 upgrade and provides us with the necessary order information, we will start an order on their behalf. You will hear from Cochlear?s Composite Technician team, via email/DocuSign to gain your approval or regarding an LMN to allow this patient to move forward in the process. Following completion of the upgrade process, I will invite the recipient to schedule time for a complimentary onboarding with our [employer] team so they can begin to maximize the use of their new Cochlear equipment. Warm Regards, Eloisa Vaqzuez, GIOVANNY/A Clinical Cash Van Salesperson [facility] 10-09-2022 History of Presen t illness [...] any questions. Upgrade Consultation Clinic Patient Report Gear Lapping Machine Operator: Katerina Mina Patient: Hasmukh Alfaro 1980 Clinic: [facility] Cash Van Salesperson: Dr. Yulissa Jaime Appointment Length: 45 Minutes What are you looking to accomplish?: I d like to learn more about the Nucleus 8 and the process of upgrading Recipient's Stated Reason for Upgrading Clinic Request - Cash Van Salesperson recommended it [employer] - Processor more [...] steps are Acquisition Methods Recipient will receive Xtl-gi-Oqutse cost estimate once order placed Next Steps If recipient decides to move forward with pursuing a Nucleus 8 upgrade and provides us with the necessary order information, we will start an order on their behalf. You will hear from Cochlear s Composite Technician team, via email/DocuSign to gain your approval or regarding an LMN to allow this patient to move forward in the process. Following completion of the upgrade process, I will invite the recipient to schedule time for a complimentary onboarding with our [employer] team so they can begin to maximize the use of their new Cochlear equipment. Warm Regards, Eloisa Vazquez, GIOVANNY/A Clinical Cash Van Salesperson documented in this encounter [facility] 09-24-2022 Note HNO ID: [id number] Author: Rimma [place] PA-C Service: ? Author Type: Physician Extruder Operator Type: Progress Notes Filed: 09/24/2022 9:53 AM Note Text: History of Present Illness Ms. MAY ALFARO is a 41 year old year old female presenting for: referred by SELF And is a patient of DO Abel Card DO [address] [place], [place] [id number] Communication will be via the electronic record [...] (FLONASE) 50 mcg/actuation nasal spray Use 1 [place] in each nostril as needed. multivitamin (DAILY [...] Plan: Established with practice of Dr. Audra Nealh for management of cochlear implant Medically cleared for any replacement or upgrade cochlear implant parts Follow-up in 2-3 years to stay established with practice Rimma [place] PA-C Otology Medical Decision Making: Problems: Low: Stable chronic illness Risk: Minimal: Minimal risk from testing/treatment Medical Decision Making Level: 2 - Straightforward [facility] 09-24-2022 Instructions Rimma [place] PA-C - 09/24/2022 9:[address] Audra Umanzor use his name on paperwork documented in this encounter [facility] 09-24-2022 History of Presen t illness Narrative History of Present Illness Ms. AMY ALFARO is a 41 year old year old female presenting for: referred by SELF And is a patient of DO Abel Card DO [address] [place] [address] Communication will be via the electronic record [...] (FLONASE) 50 mcg/actuation nasal spray Use 1 [place] in each nostril as needed. multivitamin (DAILY [...] Plan: Established with practice of Dr. Audra Umanozr for management of cochlear implant Medically cleared for any replacement or upgrade cochlear implant parts Follow-up in 2-3 years to stay established with practice Rimma [place] PA-C Otology Medical Decision Making: Problems: Low: Stable chronic illness Risk: Minimal: Minimal risk from testing/treatment Medical Decision Making Level: 2 - Straightforward documented in this encounter [facility] 07-18-2022 Note EXAMINATION: US PELV IS HISTORY: Surgical procedure COMPARISON: Ultrasound less than 14 weeks 07/16/2022 TECHNIQUE: Transabdominal and transvaginal sonographic examination. FINDINGS: Final images show an empty endometrial cavity. IMPRESSION: 1. No appreciable products of conception within endometrial cavity following dilation and curettage. Electronically authenticated by: ALEXI BRANCH Date: 2022-07-18 08:21 [facility] 11-24-2021 Evaluation note Encounter Date Diagnosis [...] Fungal rash of trunk (ICD-10 - B36.9) [employer] Other Evaluation note* Diagnosis Cochlear implant in place- Primary Other postprocedural status Sensorineural hearing loss, asymmetrical Sensorineural hearing loss, bilateral [facility] this encounter [facility] Diagnosis Low blood pressure [...] Surgical History cochlear implant Surgical History D&C [employer] Other Summary Purpose Family History No Family History Records FoundNo Family History Records FoundNo Family History Records Found Advance Directives No Advanced Directives Records FoundNo Advanced Directives Records FoundNo Advanced Directives Records Found Additional Source Comments REASON FOR VISIT (unrecogniz ed section and content) Reason Comments Hearing Loss New. Self referral. CI LT side. Last audio 03/18/22. Denies otalgia and otorrhea. Reason Comments Personalized Living Assistant - Other Reason Comments Dizziness Hypotension Reason Comments Routine Visit INFORMATION SOURCE (unrecogn ized section and content) DATE CREATED AUTHOR 07/30/2022 [facility] DATE CREATED AUTHOR AUTHOR'S ORGANIZ ATION 07/22/2023 [facility] DATE CREATED AUTHOR AUTHOR'S ORGANIZ ATION 10/21/2023 [facility] EPIC Source Comments (unrecognize d section and content) In the event this informatio n is protected by the Federal Confidentiality of Alcohol and Drug Abuse Patient Records regulations: The Federal rules restrict any use of the information to criminally investigate or prosecute any alcohol or drug abuse patient.[facility] HospitalIn the event this information is protected by the Federal Confidentiality of Alcohol and Drug Abuse Patient Records regulations: The Federal rules restrict any use of the information to criminally investigate or prosecute any alcohol or drug abuse patient.[facility] HospitalIn the event this information is protected by the Federal Confidentiality of Alcohol and Drug Abuse Patient Records regulations: The Federal rules restrict any use of the information to criminally investigate or prosecute any alcohol or drug abuse patient.[facility] Care Teams (unrecognized sec tion and content) Patient Financial Services Manager Relationship Specialty Start Date End Date Able Sun PCP - General Family Medicine 03/15/14 Patient Financial Services Manager Relationship Specialty Start Date End Date Abel Sun PCP - General [facility] 03/15/14 Patient Financial Services Manager Relationship Specialty Start Date End Date Abel Sun PCP - [facility] 03/15/14 Patient Financial Services Manager Relationship Specialty Start Date End Date Ariel Rajan MD [address] [place] [address] [phone] [facility] 02/16/23 Patient Financial Services Manager Relationship Specialty Start Date End Date Ariel Rajan MD [address] [place] [phone] PCP General 02/16/23 FOR RECORDS PERTAINING TO PATIENTS [...] BE BASED ON THE PRIMARY CLINICAL RECORDS. [facility]. provides no warranty or guarantee of the accuracy or completeness of information in this document.
[2024-05-04 15:11] LABS: Age Gdln ACOG Testing Note (.); HPV Aptima Negative (Negative); IGP, Aptima HPV, rfx 16/18,45 Note (.)
== END 2024-04-26 20:53 | disposition home or self-care (01) ==
LOC: LAB 20:52
PROVIDERS: PCP Family Medicine; Visit Provider Obstetrics & Gynecology
DX: Z01.419 Encounter for gynecological examination (general) (routine) without abnormal findings (principal)
CPT/HCPCS: 87624; 88175

== ENCOUNTER 2025-04-21 07:56 | Outpatient (OUT) | payer BC, SELFPAY ==
--- OUTSIDE RECORDS SUMMARY | 2025-04-20 12:30 | XMS_ITS | Encounter Summary ---
Author Organization [facility] Address [address] [place] [address] Care Team Providers Care Chemical Operations And Training Name Role Phone Cruz Rajan MD Primary Care Provider [phone] Encounter Details DateTypeDepartmentCare Team (Latest Contact Info)Ccgsamvjniw98/30/2025 12:30 PM EDTAncillary Procedure [facility] [address] [address] Missed menses; Positive urine test ([facility]) Social History Tobacco UseTypesPacks/DayYears UsedDateSmoking Tobacco: NeverSmokeless Tobacco: NeverAlcohol UseStandard Drinks/WeekCommentsNot Currently0 (1 standard drink = 0.6 oz pure alcohol)occasional alcohol use, Caffeine intake: none CommentsNoSex and Gender InformationValueDate RecordedSex Assigned at Coskox2401/21/2023 8:01 PM EDTLegal YulDneecf61/15/2023 6:58 PM EDTGender Identity Tudkcq5401/21/2023 8:01 PM EDTSexual TfftvxicmdkHfaatjxi85/02/2023 8:01 PM EDT documented as of this encounter Plan of Treatment DateTypeDepartmentCare Team (Latest Contact Info)Yilfrgaujzs80/10/2025 10:00 AM ESTOffice Visit [facility] [address] [place] [address] Camron Abad DO [address] [place] [address] documented as of this encounter Goals GoalPatient Goal TypeAssociated ProblemsRecent ProgressPatient-Stated?Author Reminders Care PlanOB RemindersNoOpen Scheduling, Backgrounddocumented as of this encounter Procedures Procedure NamePriorityDate/TimeAssociated DiagnosisCommentsUS OB TRANSVAGINAL Mxampkn6304/20/2025 1:43 PM EDT Missed menses Positive urine [...] time. Correlate with serial beta hCG and SAMPLE GRINDER consultation. TRANSCRIBED BY: ? ELECTRONICALLY SIGNED BY: [...] this time. Correlate with serialbeta hCG and SAMPLE GRINDER consultation. TRANSCRIBED BY: ELECTRONICALLY SIGNED BY: Donald Felipe MD Authorizing ProviderResult TypeResult StatusCorey Pollo DOIMG OB US PROCEDURES Final Result documented in this encounter Visit Diagnoses Diagnosis Missed menses Positive urine test (HHS-HCC) documented in this encounter Additional Health Concerns Active ProblemsNoted DateDiagnosed DateOB Miquvquew16/01/2023 documented as of this encounter Care Teams Team MemberRelationshipSpecialtyStart DateEnd Date Cruz Rajan MD [address] [place] [phone] PCP - General02/16/23documented as of this encounter
--- OUTSIDE RECORDS SUMMARY | 2025-04-20 13:40 | XMS_ITS | Encounter Summary ---
Author Organization [facility] Address [address] [place] [address] Care Team Providers Care Blasting Machine Operator Name Role Phone Cruz Rajan MD Primary Care Provider [phone] Encounter Details DateTypeDepartmentCare Team (Latest Contact Info)Goqgqabshpv93/30/2025 1:40 PM EDTOffice Visit [facility] [address] [place] [address] Terese Andrea PA [address] [place] Missed ([facility] Social History Tobacco UseTypesPacks/DayYears UsedDateSmoking Tobacco: NeverSmokeless Tobacco: NeverAlcohol UseStandard Drinks/WeekCommentsNot Currently0 (1 standard drink = 0.6 oz pure alcohol)occasional alcohol use, Caffeine intake: none CommentsNoSex and Gender InformationValueDate RecordedSex Assigned at Kxkbvm5001/21/2023 8:01 PM EDTLegal TlnIyzoyx72/15/2023 6:58 PM EDTGender Identity Ktcegl0401/21/2023 8:01 PM EDTSexual KljewetnxnyJnoayhwb75/02/2023 8:01 PM EDT documented as of this encounter Plan of Treatment DateTypeDepartmentCare Team (Latest Contact Info)Lihvjmkmqzm30/10/2025 10:00 AM ESTOffice Visit [facility] [address] [place] [address] [place] [address] Camron Abad DO [address] [facility] [facility] [address] [place] [address] documented as of this encounter Goals GoalPatient Goal TypeAssociated ProblemsRecent ProgressPatient-Stated?Author Reminders Care PlanOB RemindersNoOpen Scheduling, Backgrounddocumented as of this encounter Visit Diagnoses Diagnosis Missed ([facility]) Missed documented in this encounter Additional Health Concerns Active ProblemsNoted DateDiagnosed DateOB Qbkzqxamh58/01/2023 documented as of this encounter Care Teams Team MemberRelationshipSpecialtyStart DateEnd Date Cruz Rajan MD [address] [facility] [place] [address] PCP - General02/16/23documented as of this encounter
--- OUTSIDE RECORDS SUMMARY | 2025-04-21 08:02 | XMS_ITS | Clinical Summary ---
Author Organization [facility] Address [address] [place] [address] Care Team Providers Care Wireless Engineer Name Role Phone Abel Patel DO Primary Care Provider Raven Romo Unavailable Allergies Active AllergyReactionsCriticalityNoted DateCommentsSeasonal AllergiesCough 05/11/2014 Medications MedicationSigDispense QuantityRefillsLast FilledStart DateEnd DateStatus multivitamin (DAILY MULTIPLE) tablet Take 1 tablet by mouth once daily.Active Cetirizine (ZYRTEC) 10 mg cap Take 1 capsule by mouth as needed. Active fluticasone (FLONASE) 50 mcg/actuation nasal spray Indications:Bilateral sensorineural hearing loss,Autoimmune disorder of inner earUse 1 Canby in each nostril as needed. Active DOCUSATE SODIUM (COLACE ORAL) Take 1 tablet by mouth as needed.Active predniSONE (DELTASONE) 10 mg tablet Take by mouth four (4) tabs x3 days; then three (3) tabs x3days; then two (2) tabs x3 days; then one (1) tab a day x3 days 30 tablet 09/02/2017Active Active Problems ProblemNoted DateDiagnosed DateCochlear implant follow-up09/29/2017Sensorineural hearing loss, elzupeqfeobs91/09/2018Sensorineural hearing loss, bilateral 10/15/2016Vertigo of central cuynnt0105/24/2014Peripheral vertigo, unspecified 05/24/2014Left-sided sensorineural hearing loss Immunizations ImmunizationAdministration DatesNext Duepneumococcal conjugate (PCV13) vaccine, 13 valent (PREVNAR 13)08/10/2014pneumococcal polysaccharide (PPV23) vaccine, 23 valent (PNEUMOVAX 23)08/13/2017 Family History Medical HistoryRelationCommentsAllergiesBrotherseasonalAllergiesFatherseasonal DiabetesFatherDiabetesMaternal AuntDiabetesMaternal GrandfatherHeartMaternal GrandfatherAsthmaMaternal GrandmotherDiabetesMaternal UncleAllergiesMother seasonalOsteoporosisMotherlow bone densityDiabetesPaternal AuntBreast Cancer Paternal GrandmotherDiabetesPaternal UncleAllergiesSisterseasonalNo Ocular DiseaseNo Family HistoryRelationStatusCommentsBrotherFatherMaternal AuntMaternal GrandfatherMaternal GrandmotherMaternal UncleMotherPaternal AuntPaternal GrandmotherPaternal UncleSister Social History Tobacco UseTypesPacks/DayYears UsedDateSmoking Tobacco: NeverSmokeless Tobacco: Never Tobacco Cessation:Counseling Given: Not Answered Alcohol UseStandard Drinks/WeekCommentsNo0 (1 standard drink = 0.6 oz pure alcohol)Area Deprivation IndexAnswerDate RecordedNational Score (1-100), lower number is lower gcmk517507/21/2023State Score (1-10), lower number is lower risk5 07/21/2023ata from: https://www.neighborhoodatlas.[facility].edu/. Last address used for cqpfpsgecsw60 [facility]4CommentsNoSex and Gender InformationValueDate RecordedSex Assigned at ZrujrBvujzg35/25/2021 6:25 PM EDTLegal NtgBvnkis18/02/2012 8:33 AM ESTGender UjmhstooWugyqw13/25/2021 6:25 PM EDTSexual RleplchivcxFgltghlb62/25/2021 6:25 PM EDT Last Filed Vital Signs Vital SignReadingTime TakenCommentsBlood Wbxkyhwi348/7003 1:30 PM EDT Ihnxr9130 1:30 PM PVAMkizdwhreqj88.6 ??C (97.9 ??F)09/02/2017 1:00 PM EDTRespiratory Oixy657309/02/2017 1:30 PM EDTOxygen Trdyilyqka49%09/02/2017 1:30 PM EDTInhaled Oxygen Concentration--Jkvzbt89.3 kg (113 lb)08/13/2017 10:36 AM WWFGsvwgw221 cm (5' 3 )08/13/2017 10:36 AM ESTBody Mass Index20.02008/13/2017 10:36 AM EST Plan of Treatment DateTypeDepartmentCare Team (Latest Contact Info)Cxatjzrqdvv63/29/2026 2:00 PM ESTOffice Visit Audiology [address] [facility] [address] [place] [address] Raven Romo, AUD [address] [place], [place] [id number] CI follow up07/20/2025 3:30 PM ESTOffice Visit Otolaryngology [address] [facility] [address] [place] [address] Eliezer Becker PA-C [address] [address] CI CheckHealth MaintenanceDue DateLast DoneCommentsAnxiety Oggbviafo88/29/1998 Depression Vdwhcjgov07/29/1998HIV Tipikvwyu45/29/1998Hepatitis C Screening 11/17/1997Hepatitis B Vaccine (1 of 3 - 19+ 3-dose series)11/17/1998Cervical Cancer Gyxljhtud04/29/2001HPV Vaccine (1 - 3-dose SCDM series)11/17/2006 Mammogram Qmvwndqmi29/29/2020CT Fbxbzgpttrbn83/29/2025ologuard (FIT-DNA) 11/17/20241967Wckgoykzmka38/29/2025olorectal Cancer Ehomuyryt17/29/2025Diabetes Yymxjapit64/29/88392508/13/2017Fecal Occult Blood11/17/2024Lipid Screening 11/17/20242188Iflvotxvvjksa33/29/2025ovid-19 Vaccine ( season)2025 08/25/2021, 07/21/2021Influenza Vaccine (#1)Pneumococcal Vaccine (3 of 3 - PCV20 or PCV21), 08/10/2014DTaP,Tdap,Td Vaccine (3 - Td or Tdap), 08/20/2020 Medical Devices ImplantedTypeAreaManufacturerDevice IdentifierShelf Expiration DateModel / Serial / LotImplant Nucleus Cochlear Slim Modiolar Electrode [id number] Sterile Latex Free - [id number] Implanted:Qty[facility]ImplantLeft: EarCOCHLEAR 07/16/[id number] / / [id number]-Wu-S-Ydyh Implant - [id number] Implanted:Qty: 1 on [facility]02/2017 [id number] / / Description:[employer] Procedures Procedure NamePriorityDate/TimeAssociated DiagnosisCommentsBASIC METABOLIC PANEL Jibdfgv6008/13/2017 11:26 AM EST Pre-operative examination Sensorineural hearing loss (SNHL) of left ear, unspecified hearing status on contralateral side from Last 3 Months or Most Recently Relevant to Health Maintenance Results * BASIC METABOLIC PNL (08/13/2017 11:26 AM EST)ComponentValueRef RangeTest MethodAnalysis TimePerformed AtPathologist WanoirezdOdjnmar0105 - 99 mg/dL 08/13/2017 2:26 PM ESTASHTABULA COUNTY MEDICAL [facility]ENTER MAIN LABORATORYComment: The [place] Diabetes Association (ADA) provides guidance for cutoff values for fasting glucose and random glucose. The ADA defines fasting as no caloric intake for at least 8 hours. Fasting plasma glucose results between 100 to 125 mg/dL indicate increased risk for diabetes (prediabetes). Fasting plasma glucose results greater than or equal to 126 mg/dL meet the criteria for diagnosis of diabetes. In the absence of unequivocal hyperglycemia, results should be confirmed by repeat testing. In a patient with classic symptoms of hyperglycemia or hyperglycemic crisis, random plasma glucose results greater than or equal to 200 mg/dL meet the criteria for diagnosis of diabetes. Reference: Standards of Medical Care in Diabetes 2016, [place] Diabetes Association. Diabetes Care. 2016.39(Suppl 1). SHZ228 - 21 mg/dL08/13/2017 2:26 PM [facility] Creatinine0.830.58 - 0.96 mg/dL08/13/2017 2:26 PM [facility] TRHOAXBQFZRmrcui417408 - 144 mmol/L08/13/2017 2:26 PM [facility] LABORATORYPotassium4.63.7 - 5.1 mmol/L08/13/2017 2:26 PM [facility] DKAGQTXZDLEzcdwgxj17890 - 105 mmol/L08/13/2017 2:26 PM [facility] FKANDOGPXHVA52222 - 30 mmol/L08/13/2017 2:26 PM [facility] LABORATORYAnion Vns010 - 18 mmol/L08/13/2017 2:26 PM [facility] LABORATORYCalcium9.18.5 - 10.2 mg/dL08/13/2017 2:26 PM [facility]OR[facility]ORYeGFR->6002 2:26 PM [facility] LABORATORYeGFR-All Other Races>60.08/13/2017 2:26 PM [facility] LABORATORYComment: eGFR (Estimated GFR) Units of measure: mL/min/1.73 meters squared eGFR is derived from the reexpressed MDRD Study equation using the following parameters: serum creatinine, age, gender and race. The creatinine assay has been calibrated to be traceable to IDMS. An eGFR <60 mL/min/1.73m2 for >3 months is consistent with chronic kidney disease. Refer to KDOQI guidelines for clinical interpretation. In patients with unstable renal function, e.g. those with acute kidney injury, the eGFR may not accurately reflect actual GFR. Specimen (Source)Anatomical Location / LateralityCollection Method / Volume Collection TimeReceived TimeBlood specimen (specimen)BLOOD SPECIMEN / Unknown 08/13/2017 11:26 AM EST08/13/2017 11:28 AM EST Narrative Authorizing ProviderResult TypeResult StatusGisellpatricia Knutson MDLABORATORYFinal ResultPerforming OrganizationAddressCity/State/ZIP CodePhone Number [facility] [address] [place] [address] from Last 3 Months or Most Recently Relevant to Health Maintenance Insurance * Guarantor: Amy DOMÍNGUEZ TypeRelation to PatientDate of BirthPhone Billing AddressSelf [id number] [address] [place] [address] Care Teams Team MemberRelationshipSpecialtyStart DateEnd Date Abel Patel DO PCP - GeneralFamily Medicine03/15/14 Raven Romo AUD [address] [place] [address] Care PartnerAudohiohealth [facility]01/12/24
--- OUTSIDE RECORDS SUMMARY | 2025-04-21 08:02 | XMS_ITS | Encounter Summary ---
Author Organization [facility] Address [address] [place] [address] Care Team Providers Care Porcelain Finish Sprayer Name Role Phone Cruz Rajan MD Primary Care Provider [phone] Encounter Details DateTypeDepartmentCare Team (Latest Contact Info)Hszjipcktid74/26/2025Travel Social History Tobacco UseTypesPacks/DayYears UsedDateSmoking Tobacco: NeverSmokeless Tobacco: NeverAlcohol UseStandard Drinks/WeekCommentsNot Currently0 (1 standard drink = 0.6 oz pure alcohol)occasional alcohol use, Caffeine intake: none CommentsNoSex and Gender InformationValueDate RecordedSex Assigned at Rgsnvx7001/21/2023 8:01 PM EDTLegal LbhAliqda89/15/2023 6:58 PM EDTGender Identity Uibaoh8301/21/2023 8:01 PM EDTSexual DfkdzqflhmcCksopsvu24/02/2023 8:01 PM EDT documented as of this encounter Plan of Treatment DateTypeDepartmentCare Team (Latest Contact Info)Uiehfqfmhle01/10/2025 10:00 AM ESTOffice Visit [facility] [address] [place] [phone] Camron Abad DO [address] [place] [address] documented as of this encounter Goals GoalPatient Goal TypeAssociated ProblemsRecent ProgressPatient-Stated?Author Reminders Care PlanOB RemindersNoOpen Scheduling, Backgrounddocumented as of this encounter Visit Diagnoses Not on filedocumented in this encounter Additional Health Concerns Active ProblemsNoted DateDiagnosed DateOB Fuvjgzqao50/01/2023 documented as of this encounter Care Teams Team MemberRelationshipSpecialtyStart DateEnd Date Cruz Rajan MD [address] [place] [address] PCP - General02/16/23documented as of this encounter
--- OUTSIDE RECORDS SUMMARY | 2025-04-21 08:02 | XMS_ITS | Clinical Summary ---
Author Organization [facility] Address [address] [place] [address] Care Team Providers Care Wireless Watcher Name Role Phone Cruz Rajan MD Primary Care Provider [phone] Allergies Active AllergyReactionsCriticalityNoted IbwfSiuyaaxwJljvpyjqgccVlxcm31/20/2014 OrtcqCwweump98/01/2023 Medications MedicationSigDispense QuantityRefillsLast FilledStart DateEnd DateStatus cetirizine (ZyrTEC) 10 MG tablet Take 10 mg by mouth DailyActive Active Problems ProblemNoted DateDiagnosed DateSmall for gestational age (SGA) ([facility]) 08/27/2023 Encounters DateTypeDepartmentCare CayyHtzaqudwqry40/30/2025 1:40 PM EDTOffice Visit [facility] [address] [place] [address] [place] [address] Terese Andrea PA Missed ([facility])04/20/2025 12:30 PM EDTAncillary Procedure [facility] [address] [place] [address] [place] [address] Missed menses; Positive urine test ([facility])04/16/2025Travelfrom Last 3 Months Family History Medical HistoryRelationNameCommentsDiabetesFatherMultiple sclerosisMotherBreast cancerOtherCancerOtherDepressionOtherDiabetesOtherHeart diseaseOtherHypertension OtherRelationNameStatusCommentsFatherAliveMotherAliveOther Social History Tobacco UseTypesPacks/DayYears UsedDateSmoking Tobacco: NeverSmokeless Tobacco: Never Tobacco Cessation:Counseling Given: Not Answered Alcohol UseStandard Drinks/WeekCommentsNot Currently0 (1 standard drink = 0.6 oz pure alcohol)occasional alcohol use, Caffeine intake: noneCommentsNoSex and Gender InformationValueDate RecordedSex Assigned at VwnyrAgkygq13/02/2023 8:01 PM EDTLegal TllCrqrmm64/15/2023 6:58 PM EDTGender JnnrrfgvVkomki47/02/2023 8:01 PM EDTSexual SygxywffxpqAzicmpkq93/02/2023 8:01 PM EDT Last Filed Vital Signs Vital SignReadingTime TakenCommentsBlood Qxpdiqir497/7004/26/2024 9:27 AM EST Pulse--Temperature--Respiratory Rate--Oxygen Saturation--Inhaled Oxygen Concentration--Nsbmhi41.1 kg (117 lb)04/26/2024 9:27 AM ARZRgjccz956 cm (5' 3 ) 02/20/2023 11:45 AM EDTBody Mass Index20.7302/20/2023 11:45 AM EDT Plan of Treatment DateTypeDepartmentCare Team (Latest Contact Info)Mxamxhztxaj99/10/2025 10:00 AM ESTOffice Visit [facility] [address] [place] [address] Camron Abad, [address] [place] [address] Health MaintenanceDue DateLast DoneCommentsCT Ivceldoabshb01/29/1980Colonoscopy 1979Colorectal Cancer Aynztukqt22/29/1980FIT-DNA1979FIT1979 FOBT1979 5180Fjwxomycpjylp43/29/1980MMR Vaccines (1 of 1 - Standard series) 11/17/1980DTaP/Tdap/Td Vaccines (1 - Tdap)11/17/1986Hepatitis B Vaccines (1 of 3 - 19+ 3-dose series)11/17/1998HPV Vaccines (1 - 3-dose SCDM series)11/17/2006 Qneqjmtiw63/29/2020COVID-19 Vaccine (3 - season)2021, 07/21/2021Influenza Vaccine (#1)/06/2019Cervical Cancer Screening 04/26/2029HPV/Xgrpzu4004/26/2029Pap Smear/10/2023, 04/22/2023HIB VaccinesAged OutNo longer eligible based on patient's age to complete this topic Hepatitis A VaccinesAged OutNo longer eligible based on patient's age to complete this topicIPV VaccinesAged OutNo longer eligible based on patient's age to complete this topicMeningococcal B VaccineAged OutNo longer eligible based on patient's age to complete this topicMeningococcal VaccineAged OutNo longer eligible based on patient's age to complete this topicPneumococcal Vaccine: Pediatrics (0 to 5 Years) and At-Risk Patients (6 to 64 Years)Aged OutNo longer eligible based on patient's age to complete this topicRotavirus VaccinesAged Out No longer eligible based on patient's age to complete this topic Goals GoalPatient Goal TypeAssociated ProblemsRecent ProgressPatient-Stated?Author Reminders Care PlanOB RemindersNoOpen Scheduling, Background Procedures Procedure NamePriorityDate/TimeAssociated DiagnosisCommentsUS OB TRANSVAGINAL Umkwzcl7204/20/2025 1:43 PM EDT Missed menses Positive urine test ([facility]) PAP KZGZVZmhgipv73/05/2024 12:00 AM ESTfrom Last 3 Months or Most Recently Relevant to Health Maintenance Results * US OB transvaginal (04/20/2025 1:43 PM EDT)Anatomical RegionLateralityModality BodyUltrasoundSpecimen (Source)Anatomical Location / LateralityCollection Method / VolumeCollection TimeReceived Time04/20/2025 2:45 PM EDT Impressions 04/20/2025 3:23 PM EDT Single intrauterine gestational sac with a single pole, absence of cardiac activity questions viability at this time. Correlate with serial beta hCG and VISOR INSTALLER consultation. TRANSCRIBED BY: ? ELECTRONICALLY SIGNED BY: [...] this time. Correlate with serialbeta hCG and VISOR INSTALLER consultation. TRANSCRIBED BY: ELECTRONICALLY SIGNED BY: Donald Felipe MD Authorizing ProviderResult TypeResult StatusCorey Pollo DOI OB US PROCEDURES Final Result * Pap Smear (04/26/2024 12:00 AM EST)Specimen (Source)Anatomical Location / LateralityCollection Method / VolumeCollection TimeReceived TimeSwabCervical swab / Unknown Narrative Authorizing ProviderResult TypeResult StatusCorey Pollo DOLAB CYTOLOGY ORDERABLESFinal ResultPerforming OrganizationAddressCity/State/ZIP CodePhone Number EXTERNAL LAB from Last 3 Months or Most Recently Relevant to Health Maintenance Additional Health Concerns Active ProblemsNoted DateDiagnosed DateOB Xycsbiqjf93/01/2023 Insurance Care Teams Team MemberRelationshipSpecialtyStart DateEnd Cruz Rajan MD [address] [place] [phone] PCP - [facility]02/16/23
--- OUTSIDE RECORDS SUMMARY | 2025-04-21 08:02 | XMS_ITS | Clinical Summary ---
Author Organization [employer] Address [id number] [address] [place] [address] Care Team Providers Care Layout Operator Name Role Phone Cruz Rajan MD Primary Care Provider [phone] Social History Tobacco UseTypesPacks/DayYears UsedDateSmoking Tobacco: Never Assessed CommentsNoSex and Gender InformationValueDate RecordedSex Assigned at BirthNot on fileLegal NkcUweiza74/06/2023 1:43 PM EDTGender IdentityNot on fileSexual OrientationNot on file Plan of Treatment Health MaintenanceDue DateLast DoneCommentsDepression Fyicdimhx05/29/1992Tobacco Ywjgmmcri47/29/1992Adult BMI Czaowazcc48/29/1998Pap Smear11/17/2000COVID-19 Vaccine ( season)503/11/2021, 07/21/2021Influenza Vaccine /06/2019DTaP,Tdap and Td Vaccines (2 - Tdap)/06/2020 Medical Devices Not on file Insurance Care Teams Team MemberRelationshipSpecialtyStart DateEnd Date Cruz Rajan [facility]
--- OUTSIDE RECORDS SUMMARY | 2025-04-21 08:03 | XMS_ITS | Patient Health Record ---
Author Organization [facility] [place] Address [address] [place] [address] Care Team Providers Care Stain Applicator Name Role Phone Lukas Rajan Primary Care Provider Keerthi Stephens [phone] Allergies No Known Allergies Results Component Value Reference Range Notes IGP,Aptima HPV,Age Gdln Reviewed date:05/04/2024 07:44:53 PM Interpretation: Performing Lab: Notes/Report: BRUSH-SPATULA CERVIX ENDOCERVIX [facility] , Age Gdln ACOG Testing Note . FLAG LEGEND: Clinician Provided Cytology Information <-Panic Low,>-Panic High,A-Abnormal,AA-Critical Abnormal No. of containers..01 ThinPrep Vial 01 =G [facility] Ezra Hong MD, Source.............Cervix;Endocer vix L-Low Normal,H-High Normal,LL-Alert Low,HH-Alert High Performed at: TESTS RESULT FLAG UNITS REF RANGE LAB Age Algo ACOG Mini... 30-65 01 [address] [place] [address] IGP, Aptima HPV, rfx 16/18,45 Note . TESTS RESULT FLAG UNITS REF RANGE LAB cancer. Both false-positive and false-negative reports do cells (endocervical component) are present. Performed at: L-Low Normal,H-High Normal,LL-Alert Low,HH-Alert High This liquid based ThinPrep(R) pap test was screened with detection of premalignant and malignant conditions of the NEGATIVE FOR INTRAEPITHELIAL LESION OR MALIGNANCY. oRcío Hong MD, Criteria not met, HPV Genotype not performed. Test Methodology: Note 02 . 02 [address] [place] [address] HPV Genotype Reflex Note 02 Satisfactory for evaluation. Endocervical and/or squamous metaplastic [facility], Hide Paster ([facility]) DIAGNOSIS: 02 FLAG LEGEND: The Pap smear is a screening test designed to aid in the should not be used as the sole means of detecting cervical occur. Performed by: Note: Note 02 <-Panic Low,>-Panic High,A-Abnormal,AA-Critical Abnormal Specimen adequacy: 07 24 [facility] the use of an image guided system. uterine cervix. It is not a diagnostic procedure and HPV Aptima Negative Negative without differentiation. Vp Software Support: Rocío Hong MD, Phone: [phone] Vp Software Support: Rocío Hong MD, Phone: [phone] Performed at: [facility] risk HPV types (16,18,31,33,35,39,45,51,52,56,58 ,59,66,68) [address] [place], [place] [phone] Performed at: =[facility] This nucleic acid amplification test detects fourteen high- [address] [place], [place] [id number] Performing Lab: see note - [facility] LB Reason For Referral No Information Medications Medication SIG (Take, Route, Frequency, Duration) Notes Start Date End Date Status Benzonatate 200 MG 1 capsule as needed Orally Three times a day; Duration: 7 days 5Active Social History Tobacco Use: Social History Observation Description Date Details (start date - stop date) Never Smoker NA - NA Tobacco Control (Standard) Question Answer Notes Tobacco use: Nonsmoker AUDIT-C (Standard) Question Answer Notes Did you have a drink containing alcohol in the p ast year? No Prjuxh4TlqkhbqmtnyliwZwozjvzd Vital Signs Heart Rate 72 /min 11/22/2024 Uqhdqzbv50 %11/22/2024lood pressure luzjoezns76 mm Hg11/22/20243640Ydsybz78 in 11/22/2024lood pressure sozotdgi889 mm Hg11/22/20242305Vvhasx131.8 lbs11/22/2024MI 21.4 kg/m211/22/2024 Encounters Encounter Location Date Provider Diagnosis [facility] [address] [place] [address] 11/22/2024 Keerthi Stephens Bronchitis J40 Assessments Encounter Date Diagnosis (ICD Code) Assessment Notes Treatment Notes Treatment Clinical Notes Section Notes 11/22/2024 Bronchitis (ICD-10 - J40) fu if not improving Plan Of Treatment No Information Insurance Providers Payer Name Payer Address Payer Phone Subscriber Number Group Number Insured Name Patient Relationship to Insured Coverage Start Date Coverage End Date [employer] ACC[employer] PPO PLUS LOCAL PLAN [address] [place] [address] [id number] Ankush Domínguez - patient is the insured Medical (General) History Surgical History Surgery Date(Month/Year) Cochlear implant
--- OUTSIDE RECORDS SUMMARY | 2025-04-21 08:03 | XMS_ITS | CCD ---
Author Organization [facility] Care Team Providers Care Reconditioning Associate Name Role Phone Megan Oconnro Unavailable ANDRES, DR LEE Admitting Unavailable KARASIK, [...] Consulting Unavailable Abel Sun Primary Care Provider Ariel Santana MD Primary Care Provider [phone] Abel Sun DO Primary Care Provider Yulissa Sandoval Unavailable YULISSA ROMO Attending Unavailable ABEL SUN Primary Care Unavailab Ariel Rich MD Primary Care Provider [phone] PRECIOUS LANIER Attending Unavailable IVAN ABAD Attending Unavailable Allergies Allergy ClassificationReported Allergen(s)Allergy TypeDate of OnsetReaction(s) Facility (5 sources)Seasonal allergy; Translations: [SEASONAL ALLERGIES]Allergy to otpvifryu61-80-7016[facility] (11 sources)OctacosanolDrug Iqncabw84-84-4643Wil[facility]TJKC [facility] (11 sources)OtherPropensity to adverse kvmejaynm95-66-7953DneglazFXIJ Healthcare Medications Current Medications MedicationDrug Class(es)DatesSig (Normalized)Sig (Original)[id number] 200 actuat albuterol 0.09 mg/actuat metered dose inhaler (1 source)beta2-Adrenergic AgonistStart: 96-30-6155fqcv 2 puff(s) by inhalation every four hours as neededAlbuterol Sulfate HFA 108 (90 Base) MCG/ACT 2 puffs as needed Inhalation every 4 hrs Nov, Activeaspirin 81 mg delayed release oral tablet (4 sources)Platelet Aggregation Inhibitor, Nonsteroidal Anti-inflammatory Drug End: 61-00-7279bwhy 1 tablet by mouth in the morningaspirin 81 MG EC tablet Take 81 mg by mouth in the morning. 0 08/03/2023 Discontinuedcetirizine hydrochloride 10 mg oral tablet (11 sources)Histamine-1 Receptor Antagonisttake 1 tablet by mouth once daily cetirizine (ZyrTEC) 10 MG tablet Take 10 mg by mouth Daily ActiveCetirizine (ZYRTEC) 10 mg cap Take 1 capsule by mouth as needed. ActiveComment on above: Take 1 capsule by mouth as needed. Clotrimazole (1 source)Azole AntifungalStart: 97-22-5616Skhsftvtfrhr 1 % 1 application to affected area Externally Twice a day for 28 day(s) Nov, ActiveDocusate (11 sources)DOCUSATE SODIUM (COLACE ORAL) Take 1 tablet by mouth as needed. Active End: 00-39-2207sxkj 1 capsule by mouth in the morningdocusate sodium (Colace) 100 MG capsule Take 100 mg by mouth in the morning. 04/26/2024 Discontinued (Therapy completed)DOCUSATE SODIUM (COLACE ORAL) Take 1 tablet by mouth as needed. 0 ActiveComment on above:Take 1 tablet by mouth as needed.famotidine 20 mg oral tablet (4 sources)Histamine-2 Receptor Antagonistfamotidine (Pepcid) 20 MG tablet Take 20 mg by mouth as needed at bedtime for heartburn 0 Activefluticasone propionate 0.05 mg/actuat metered dose nasal spray (4 sources)Corticosteroidfluticasone (FLONASE) 50 mcg/actuation nasal spray Indications: Bilateral sensorineural hearing loss , Autoimmune disorder of inner ear Use 1 [place] in each nostril as needed. ActiveComment on above:Use 1 [place] in each nostril as needed. methylPREDNISolone 4 mg oral tablet (1 source)CorticosteroidStart: 01-48-3170sbdwdpSWMHTQFvolkb 4 MG as directed Orally Once a day for 6 days Nov, Activemultivitamin (DAILY MULTIPLE) tablet (4 sources)take 1 tablet by mouth once dailymultivitamin (DAILY MULTIPLE) tablet Take 1 tablet by mouth once daily. Activetake 1 tablet by mouth once daily multivitamin (DAILY MULTIPLE) tablet Take 1 tablet by mouth once daily. 0 Active Comment on above:Take 1 tablet by mouth once daily.predniSONE 10 mg oral tablet (4 sources)Start: 61-64-2347gsunrfVEDK (DELTASONE) 10 mg tablet Take by mouth four (4) tabs x3 days; then three (3) tabs x3days; then two (2) tabs x3 days; then one (1) tab a day x3 days 30 tablet 09/02/2017 ActiveComment on above:Take by mouth four (4) tabs x3 days; then three (3) tabs x3days; then two (2) tabs x3 days; then one (1) tab a day x3 daysPrenatal 27-1 MG tablet (8 sources)Start: 06-18-2023 End: 74-91-4400wxho 1 tablet by mouth once dailyPrenatal 27-1 MG tablet Indications: Second trimester Take 1 tablet by mouth 1 (one) timeeach day at the same time 90 tablet 3 06/18/2023 06/17/2024 Active Completed/Discontinued Medications MedicationDrug Class(es)DatesSig (Normalized)Sig (Original)LOW-DOSE ASPIRIN PO (2 sources)Start: 04-02-2023 End: 31-18-2073YBK-DOSE ASPIRIN POphenylephrine 0.0025 mg/mg / witch raquel 0.5 mg/mg rectal gel (3 sources)alpha-1 Adrenergic Agonist End: 30-18-1122Ycolpdjpcowaq-Witch Raquel (Preparation H) 0.25-50 % gel Apply 1 Application topically Daily 04/26/2024 Discontinued (Therapy completed) Triamcinolone (1 source)CorticosteroidStart: 33-74-1743Ktimovx -40 mg Nov, 40 mg Problems Active Problems Problem ClassificationProblemDateDocumented DateEpisodic/ChronicDeficiency and other anemia (4 sources)Iron deficiency anemia, unspecified; Translations: [IRON DEFICIENCY ANEMIA UNSPECIFIED]Onset: 16-53-1874SyativlpXtiefkdlzc and other anemia (1 source)Anemia, unspecified; Translations: [ANEMIA UNSPECIFIED]Onset: 25-99-2935HkhebcpdUunjc aftercare (5 sources)Cochlear prosthesis in situ; Translations: [Encounter for other specified surgical aftercare]Onset: 171127-15-8750SracmlsdFvczn circulatory disease (2 sources)Low blood pressure reading; Translations: [Nonspecific low blood- pressure reading]41-75-7005QymjwiiaScdxu complications of (5 sources)Missed ; Translations: [MISSED ]Onset: 07-17-2022 EpisodicOther ear and sense organ disorders (1 source)Unspecified sensorineural hearing loss; Translations: [UNS SENSORINEURAL HEARING LOSS]Onset: 57-84-4335OakruuoJizpy ear and sense organ disorders (5 sources)Asymmetrical sensorineural hearing loss; Translations: [Sensorineural hearing loss, bilateral]Onset: 85-81-6849MtovyihMuexl ear and sense organ disorders (8 sources)Sensorineural hearing loss, bilateral; Translations: [Sensorineural hearing loss, bilateral]Onset: 11-37-1015SzeohdnJrhvo ear and sense organ disorders (1 source)Cochlear prosthesis in situ; Translations: [Cochlear implant status] ChronicOther ear and sense organ disorders (4 sources)Sensorineural hearing loss in left ear; Translations: [Unspecified sensorineural hearing loss]29-42-3277TzwkqoyZffjt and delivery including normal (13 sources)Encounter for supervision of other normal , first trimester; Translations: [Encounter for supervision of normal , unspecified, unspecified trimester]Onset: 51-66-2288ZezufnhxLrgnc screening for suspected conditions (not mental disorders or infectious disease) (6 sources)Encounter for screening for malignant neoplasm of cervix; Translations: [Patient encounter status]Onset: 98-54-8103RixendvhLhsqsheekfl (1 source)Complete or unspecified spontaneous without complication; Translations: [COMPLETE/UNS SPONT AB W/O COMP]Onset: 13-44-6957Hspuedrm Unclassified (1 source)CONTACT W/AND (SUSP) EXPOS COVID-19; Translations: [CONTACT W/AND (SUSP) EXPOS COVID-19]Onset: 97-18-0590Bbawavyxgokt (11 sources)OB RemindersOnset: [id number] Past or Other Problems Problem ClassificationProblemDateDocumented DateEpisodic/ChronicChronic obstructive pulmonary disease and bronchiectasis (1 source)Bronchitis, not specified as acute or chronicOnset: 11-24-2021 Resolved: 13-63-2137BxvclllpByrsiqecim associated with dizziness or vertigo (12 sources)Vertigo of central origin; Translations: [Vertigo of central origin] Onset: 104183-63-5607MctiqpoiMxierruyodkvm and screening for infectious disease (1 source)Encounter for screening for human papillomavirus (HPV); Translations: [ENC SCREENING HUMAN PAPILLOMAVIRUS]Onset: 15-67-7349VahlkpulLndfvmz (1 source)Superficial mycosis, unspecifiedOnset: 11-24-2021 Resolved: 79-22-8491NkjtibhdWquud gestation; low weight; and growth retardation (9 sources)Pitja-ssv-shoau baby; Translations: [[place] small for gestational age, unspecified weight]Onset: 67-00-189014050240-49-9937Ourwxlrk Results Test NameValueInterpretationReference RangeFacilityCNOVon 14-47-4138LTNMUfndnq Visit (SALINA) AMY ALFARO ([id number]) 1980 F Date Time Provider Department 07/21/24 8:30 AM YULISSA ROMO During your visit today, we recorded the following information about you: Yulissa Romo AUD 07/21/2024 11:17 AM Signed [facility] [place] [facility] COCHLEAR IMPLANT ADULT PROGRAMMING Name: Amy ALFARO CCF#: [id number] Date of Service: July 21, 2024 Date of : 1980 Age: [age] year old COCHLEAR IMPLANT INFORMATION (see below for all device details) Right ear: Phonak Audeo RITE Hearing Aid that was fit at an outside facility (November 2021) and is being managed by that facility. Left ear: External Processor: Cochlear [employer] [id number] (Nucleus 8; upgraded around January 2023) Processor SN: [id number] Processor ([id number]) SN: [id number] Magnet strength: 2 Internal Device: Cochlear [id number] Profile with Slim Modiolar Electrode Array Internal Device SN: [id number] Inactive electrodes: None Surgery Date: 09/02/2017 Initial activation date: 09/29/217 Surgeon: Reyna Yeung M.D. Accessories: Remote Control (CR310) Mini Microphone 2+ Phone Clip HISTORY: Ms. ALFARO was seen for annual evaluation of the device. The patient reported: Processor and [id number] coil were replaced in May 2024 as it stopped working Denied pain/discomfort at the magnet site Reported she has been having some trouble hearing speech recently and has needed to ask for people to repeat more. She would like the volume increased some today. UNAIDED AUDIOMETRIC TESTING: Audiogram from 09/28/2017 AIDED AUDIOMETRIC TESTING: Audiologic testing was completed in the sound field with the speech processor at user settings (Program: 1; Volume: 6; Sensitivity: 12) before programming. See the SmartForm Audiogram for obtained thresholds. Speech perception testing was completed at 60 pneumatic tester mechanic using recorded stimuli in the sound field at 0 degrees azimuth. NOTE: The contralateral ear was plugged and muffed during testing. The following testing and results were obtained: Nuherjpnh-Naonptj-Fpjlcsoas Words (CNC) Test Condition List # Phonemes Words Clinically significant change compared to previous visit? Clinically significant change compared to BEST? Clinically significant change compared to Evaluation (07/19/2014)? Left Ear 10 (-25) 96% 88% No (76% on 07/21/23) No (92% on 09/29/18) Yes, improved (0%) Bimodal 9 (-25) 100% 100% Yes, improved (80% on 07/21/23) No (100% on 03/18/22) Yes, improved (68%) AZ BIO (+5 SNR) Test Condition List # Score Clinically significant change compared to previous visit? Clinically significant change compared to BEST? Clinically significant change compared to Evaluation (07/19/2014)? Left Ear 5 63% No (61% on 07/21/23) No (74% on 12/09/19) DNT Bimodal 6 73% No (57% on 07/21/23) No (68% on 12/09/19) NEW BEST TODAY DNT Summary: Aided detection levels were obtained between 10-30 dB HL from 250-6000 Hz using the LEFT CI only. Speech perception performance remains stable compared to previous and best scores. COCHLEAR IMPLANT PROGRAMMING/TROUBLESHOOTING: Dataloggin hrs/day LEFT Programming: Headset pressure, magnet strength, and [...] Left Ear Program/Map # Program Feature 1 23 SCAN (ADRO + ASC), SNR-NR,WNR 2 23 SCAN 2 FF (ADRO + ASC), SNR-NR,WNR Active controls include: volume, forward focus and telecoil. Battery Life: Rechargeable: 26 hours Disposable: 45 hours SUMMARY AND RECOMMENDATIONS: Counseling Points: * Schedule appointment with Rimma Becker PA-C in 1-year for continued medical care. This appointment has been scheduled for 07/20/2025. * Continue to monitor magnet/incision site for pain, redness, swelling, scabbing etc. Should any of these occur discontinue use of device immediately and contact the office. * Continue use of right hearing aid and left sound processor during all waking hours. Follow-up Programming: It was recommended that the patient return in 1 year for monitoring of auditory performance and potential programming needs. This appointment has been scheduled for 07/20/2025. The center should be contacted if there are problems or roberto (more content not included)...NormalOhiohealth Grove City Methodist HospitalHEARING IMPLANTABLE DEVICES (E.G. COCHLEAR IMPLANTS (CI), BONE ANCHORED (SHAWN), SENSORY DEVICES)on 91-90-6490Kuagngaty ClinicIGP,APTIMA HPV,AGE GDLNon 52-93-8742MDQ GDLN ACOG TESTINGNote.NOMS HealthcareComment on above:TESTS RESULT FLAG UNITS REF RANGE LAB Clinician Provided Cytology Information Source.............Cervix;Endocervix No. of containers..01 ThinPrep Vial Age Algo ACOG Mini... FLAG LEGEND: L-Low Normal,H-High Normal,LL-Alert Low,HH-Alert High <-Panic Low,>-Panic High,A-Abnormal,AA-Critical Abnormal Performed at: 01 =[address] [id number] Rocío Hong MD, HPV APTIMANegativeNegativeNOMS HealthcareComment on above:This nucleic acid amplification test detects fourteen high- risk HPV types (16,18,31,33,35,39,45,51,52,56,58,59,66,68) without differentiation. Performed at: =[address] [id number] Shaper Setter: Rocío Hong MD, Phone: [phone] Performed at: [address] [id number] Shaper Setter: Rocío Hong MD, Phone: [phone] IGP, APTIMA HPV, RFX 16/18,45Note.NOMS HealthcareComment on above:TESTS RESULT FLAG UNITS REF RANGE LAB DIAGNOSIS: 02 NEGATIVE FOR INTRAEPITHELIAL LESION OR MALIGNANCY. Specimen adequacy: 02 Satisfactory for evaluation. Endocervical and/or squamous metaplastic cells (endocervical component) are present. Performed by: 02 Jose G Whittington, Relief Cook (ASCP) . 02 Note: Note 02 The Pap smear is a screening test designed to aid in the detection of premalignant and malignant conditions of the uterine cervix. It is not a diagnostic procedure and should not be used as the sole means of detecting cervical cancer. Both false-positive and false-negative reports do occur. Test Methodology: Note 02 This liquid based ThinPrep(R) pap test was screened with the use of an image guided system. HPV Genotype Reflex Note 02 Criteria not met, HPV Genotype not performed. FLAG LEGEND: L-Low Normal,H-High Normal,LL-Alert Low,HH-Alert High <-Panic Low,>-Panic High,A-Abnormal,AA-Critical Abnormal Performed at: 02 [address] [facility] [address] [phone] Rocío Hong MD, BRUSH-SPATULA CERVIX ENDOCERVIX CLINISYNCNOMS HealthcareUrinalysis macro (dipstick) panel (U)on 07-30-2023 Bilirubin, UANegativeNegative - 4(70) +++ mg/dLNOMS HealthcareBlood, UAPositive Negative - 50 Bobby/mcLNOMS HealthcareComment on above:trace-intactClarity, UA ClearNOMS HealthcareColor, UAYellowNOMS HealthcareGlucose, UANegativeNegative - 1999(110) ++++ mg/dLNOMS HealthcareInterpretation and review of laboratory resultsAbnormalNOMS HealthcareKetones, UANegativeNegative - 160(16) ++++ mg/dL NOMS HealthcareLeukocytes, UAPositiveNegative - 500+++ Suzette/mcLNOMS Healthcare Comment on above:smallNitrite, UANegativeNegative - PositiveNOMS HealthcarepH, UA6.05 - 9NOMS HealthcareProtein, UANegativeNegative - 1999(20) ++++ mg/dLNOMS HealthcareSpec Grav, UA1.0101 - 1.03NOMS HealthcareUrobilinogen, UA0.20.2 - 12 mg/dLNOMS HealthcareNOMS HealthcareUrinalysis macro (dipstick) panel (U)on 79-62-5916Anihshprd, UANegativeNegative - 4(70) +++ mg/dLNOMS HealthcareBlood, UANegativeNegative - 50 Bobby/mcLNOMS HealthcareClarity, UAClearNOMS Healthcare Color, UAYellowNOMS HealthcareGlucose, UANegativeNegative - 2000(110) ++++ mg/dL NOMS HealthcareInterpretation and review of laboratory resultsAbnormalNOMS HealthcareKetones, UANegativeNegative - 160(16) ++++ mg/dLNOMS Healthcare Leukocytes, UAPositiveNegative - 500+++ Suzette/mcLNOMS HealthcareComment on above: smallNitrite, UANegativeNegative - PositiveNOMS HealthcarepH, UA7.05 - 9NOMS HealthcareProtein, UANegativeNegative - 2000(20) ++++ mg/dLNOMS HealthcareSpec Grav, UA1.0151 - 1.03NOMS HealthcareUrobilinogen, UA0.20.2 - 12 mg/dLNOMS HealthcareNOMS HealthcareCBC AUTO DIFFon 55-51-5957WXMJ #0.0 103/ulNormal0.0-0.1 [facility] HospitalComment on above:Performed By: #### CBC #### [facility] [address] [address] [address] Jani HaywoodBasophils/100 WBC (Bld)0.6 %Normal0.2-2.0[facility] Comment on above:Performed By: #### CBC #### [facility] [address] [address] [address] Jani Herron #0.1 103/ulNormal0.0-0.7The [facility] ClinicComment on above: Performed By: #### CBC #### [facility] [address] [address] [address] Jani Trivediosinophils/100 WBC (Bld)2.5 %Normal0.9-7.0[facility] Comment on above:Performed By: #### CBC #### [facility] [address] [address] [address] Jani Trivedirythrocyte distribution width (RBC) [Ratio]13.7 %Dupheu77.0-15.0 The [facility] ClinicComment on above:Performed By: #### CBC #### [facility] [address] [place] [address] Dr. Jani HaywoodHematocrit (Bld) [Volume fraction]40.3 %Qktraa08.0-48.0The [facility] ClinicComment on above:Performed By: #### CBC #### [facility] [address] [place] [address] Dr. Jani HaywoodHemoglobin (Bld) [Mass/Vol]12.7 g/pYGjjmmw32.0-16.0The [facility] ClinicComment on above:Performed By: #### CBC #### [facility] [address] [place] [address] Dr. Jani Ruiz #0.01 10e3/ulNormal0.00-0.03The [facility] ClinicComment on above:Performed By: #### CBC #### [facility] [address] [place] [address] Dr. Jani Ruiz %0.2 %Normal0.0-0.5The [facility] ClinicComment on above: Performed By: #### CBC #### [facility] [address] [place] [address] Dr. Jani Winter #1.8 103/ulNormal1.2-3.8The [facility] ClinicComhen[facility] on above:Performed By: #### CBC #### [facility] [address] [place] [address] Dr. Jani Harrisonmphocytes/100 WBC (Bld)35.2 %Kkpaxm41.5-60.0The [facility] ClinicComment on above:Performed By: #### CBC #### [facility] [address] [place] [address] Dr. Jani RevelesUAL DIFF REQNONormalThe [facility] ClinicComment on above: Performed By: #### CBC #### [facility] [address] [place] [address] Dr. Jani Uribe (RBC) [Entitic mass]30.5 yyMwjxov73.7-34.0The [facility] ClinicComment on above:Performed By: #### CBC #### [facility] [address] [place] [address] Dr. Jani Ash (RBC) [Mass/Vol]31.5 g/tTBhqikw34.9-35.2The [facility] ClinicComment on above:Performed By: #### CBC #### [facility] [address] [place] [address] Dr. Jani Ash (RBC) [Entitic vol]96.9 yPGahhjb64.0-99.0The [facility] ClinicComment on above:Performed By: #### CBC #### [facility] [address] [place] [address] Dr. Jani Barber #0.4 103/ulNormal0.3-0.8The [facility] ClinicComment on above:Performed By: #### CBC #### [facility] [address] [place] [address] Dr. Jani Cornejoocytes/100 WBC (Bld)8.1 %Normal1.7-12.0[facility] Comment on above:Performed By: #### CBC #### [facility] [address] [place] [address] Dr. Jani Salas #2.8 103/ulNormal1.4-6.5The [facility] ClinicComment on above:Performed By: #### CBC #### [facility] [address] [place] [address] Dr. Jani Blancasophils/100 WBC (Bld)53.4 %Kxkefm39.0-75.0The [facility] ClinicComment on above:Performed By: #### CBC #### [facility] [address] [place] [address] Dr. Jani Crowderlet mean volume (Bld) [Entitic vol]10.0 fLNormal9.5-13.5The [facility] ClinicComment on above:Performed By: #### CBC #### [facility] [address] [place] [address] Dr. Jani RosasT271 103/rzCbiicl499-451Snj [facility] ClinicComment on above: Performed By: #### CBC #### [facility] [address] [place] [address] Dr. Jani HaywoodRBC4.16 106/ulCritically low4.20-5.40The [facility] ClinicComment on above:Performed By: #### CBC #### [facility] [address] [place] [address] Dr. Jani HaywoodWBC5.2 103/ulNormal4.0-11.0The [facility] ClinicComment on above: Performed By: #### CBC #### [facility] [address] [place] [address] Dr. Jani Ramires 04-47-9023Shrh [Mass/Vol]64.0 ug/wEIpvtjm11.0-170.0The [facility] ClinicComment on above:Performed By: #### A1C #### [facility] [address] [place] [address] Dr. Jani HaiderF 14(COMP METB)on 09-33-2208Vqsasjc [Mass/Vol]3.5 g/dLNormal 3.4-5.0[facility] on above:Performed By: #### CMP #### [facility] [address] [place] [address] Dr. Jani HaywoodAlbumin/Globulin [Mass ratio]0.9 {ratio}NormalThe [facility] on above:Performed By: #### CMP #### [facility] [address] [place] [address] Dr. Jani Mustafa [Catalytic activity/Vol]73 U/JKdcgmn59-453Gwx [facility] ClinicCom[facility] on above:Performed By: #### CMP #### [facility] [address] [place] [address] Dr. Jani Carrasquillo [Catalytic activity/Vol]12 U/LCritically zpi85-44Prg [facility] ClinicComment on above:Performed By: #### CMP #### [facility] [address] [address] [address] aJni Farfan gap [Moles/Vol]11.0 mmol/LNormalThe [facility] Comment on above:Performed By: #### CMP #### [facility] [address] [address] [address] Jani HaywoodAST [Catalytic activity/Vol]13 U/LCritically ajk85-74Dry [facility] ClinicComment on above:Performed By: #### CMP #### [facility] [address] [address] [address] Jani HaywoodBilirubin [Mass/Vol]0.5 mg/dLNormal0.2-1.0[facility] Comment on above:Performed By: #### CMP #### [facility] [address] [address] [address] Jani HaywoodCalcium [Mass/Vol]8.6 mg/dLNormal8.5-10.1[facility] Comment on above:Performed By: #### CMP #### [facility] [address] [place] [address] Dr. Jani HaywoodChloride [Moles/Vol]105 mmol/TOdaemw89-112Hvn [facility] Comment on above:Performed By: #### CMP #### [facility] [address] [place] [address] Dr. Jani HaywoodCO2 [Moles/Vol]28.8 mmol/VTqvblf78.0-32.0[facility] Comment on above:Performed By: #### CMP #### [facility] [address] [place] [address] Dr. Jani HaywoodCreatinine [Mass/Vol]0.87 mg/dLNormal0.55-1.02The [facility] ClinicComment on above:Performed By: #### CMP #### [facility] [address] [address] [address] Jani Nunez-AF GIBRALTARIAN>60Normal>=60The [facility] ClinicComment on above:Performed By: #### CMP #### [facility] [address] [address] [address] Yilan ChangEGFR-NON AF GIBRALTARIAN>60Normal>=60The [facility] ClinicComment on above:Performed By: #### CMP #### [facility] [address] [place] [address] Dr. Jani HaywoodGlobulin (S) [Mass/Vol]3.7 g/dLNormMarietta Memorial HospitalComment on above:Performed By: #### CMP #### [facility] [address] [place] [address] Dr. Jani HaywoodGlucose [Mass/Vol]95 mg/rLRcgojx38-726Qbz [facility] Comment on above:Performed By: #### CMP #### [facility] [address] [place] [address] Dr. Jani HaywoodPotassium [Moles/Vol]3.8 mmol/LNormal3.5-5.1[facility] Comment on above:Performed By: #### CMP #### [facility] [address] [place] [address] Dr. Jani HaywoodProtein [Mass/Vol]7.2 g/dLNormal6.4-8.2[facility] Comment on above:Performed By: #### CMP #### [facility] [address] [place] [address] Dr. Jani HaywoodSodium [Moles/Vol]141 mmol/SGuzitg262-150PeoOhiohealth [facility]in [facility] Hospital Comment on above:Performed By: #### CMP #### [facility] [address] [place] [address] Dr. Jani HaywoodUrea nitrogen [Mass/Vol]12.0 mg/dLNormal7.0-18.0The [facility] ClinicComment on above:Performed By: #### CMP #### [facility] [address] [place] [address] Dr. Jani Zabala nitrogen/Creatinine [Mass ratio]13.8 mg/mgNormalThUniversity Hospitals Beachwood Medical CenterComment on above:Performed By: #### CMP #### [facility] [address] [place] [address] Dr. Jani Meyer-19 PCR (CVDTBH)on 17-56-0490UFWC-CoV-2 (COVID-19) RNA CAROLE+probe Ql (Unsp spec)Not detectedNormalNOT DETECTEDThe [facility] Comment on above:Result Comment: This test is not yet approved or cleared by the [place] FDA. When there are no FDA-approved or cleared tests available, and other criteria are met, FDA can make tests available under an emergency access mechanism called an Emergency Use Authorization (EUA). The EUA for this test is supported by the [place] of Health and Human Service's (HHS's) declaration that circumstances exist to justify the emergency use of in vitro diagnostics for the detection and/or diagnosis of the virus that causes COVID- 19. This EUA will remain in effect (meaning [...] of clinical signs and symptoms consistent with SARS-CoV-2.Performed By: #### [facility] #### [facility] [address] [place] [address] Dr. Jani Layton PREG <14 WKSon 18-49-0191KM PREG <14 WKSEXAMINATION: US PREG <14 WKS HISTORY: Spontaneous without [...] was notified of these findings by the concrete hopper operator at time of imaging. Electronically authenticated by: ALEXI BRANCH Date: 2022-07-16 13:[address] [place] [address] B SURFACE ANTIGEN SCREENon 47-84-8295OYyRw ScreenNegative NormalNegativeThe [facility] on above:Performed By: #### A1C #### [facility] [address] [place] [address] Dr. Jani HaywoodHEPATITIS C VIRUS AB W/ REFLEX QUANTon 32-50-7595NPT AB<0.1Normal 0.0-0.9[facility] on above:Performed By: #### HCVPCRR #### [facility] [address] [place] [address] Dr. Jani HaywoodInterpretation:CommentLima City Hospital on above:Result Comment: Negative Not infected with HCV, unless recent infection is suspected or other evidence exists to indicate HCV infection.Performed By: #### HCVPCRR #### [place] [address] Dr. Jani HaywoodHIV 1 AND 2 WITH REFLEXon 91-12-2332VTX Screen 4th Generation wRfxNon-ReactiveNormalNon ReactiveThe [facility] on above:Result Comment: HIV Negative HIV-1/HIV-2 antibodies and HIV-1 p24 antigen were NOT detected. There is no laboratory evidence of HIV infection.Performed By: #### HIV12 #### [place] [address] Dr[address] Jani HaywoodRPR QUANTon 31-18-5219Nzmug Plasma Reagin, QuantNon-Reactive NormalNonRea<1:1[facility] on above:Result Comment: Please Note: This test does not meet current guidelines for screening and diagnosis of syphilis. This test is intended for following treatment response in patients being treated for syphilis infection. To screen for syphilis infection, a reflex cascade that includes both RPR and a treponema-specific assay should be utilized, such as Treponema pallidum (Syphilis) Screening [place] (292009) or Rapid Plasma Reagin (RPR) Test With Reflex to Quantitative RPR and Confirmatory Treponema pallidum Antibodies (406485).Performed By: #### RPRQ #### [facility] [address] [place] [address] Dr. Jani Hager AB IGGon 94-91-1138Herypkx Antibodies, IgG2.92 index NormalImmune >0.99The [facility] ClinicComment on above:Result Comment: Non- immune <0.90 Equivocal 0.90 - 0.99 Immune >0.99Performed By: #### A1C #### [facility] [address] [place] [address] Dr. Jani TimmonsC AUTO DIFFon 71-14-3837TNJF #0.1 103/ulNormal0.0-0.1The [facility] ClinicComment on above:Performed By: #### CBC #### [facility] [address] [place] [address] Dr. Jani HaywoodBasophils/100 WBC (Bld)0.7 %Normal0.2-2.0[facility] Comment on above:Performed By: #### CBC #### [facility] [address] [place] [address] Dr. Jani Herron #0.1 103/ulNormal0.0-0.7The [facility] ClinicComment on above: Performed By: #### CBC #### [facility] [address] [place] [address] Dr. Jani Trivediosinophils/100 WBC (Bld)1.2 %Normal0.9-7.0[facility] Comment on above:Performed By: #### CBC #### [facility] [address] [place] [address] Dr. Jani Trivedirythrocyte distribution width (RBC) [Ratio]13.7 %Lmwyhs99.0-15.0 The [facility] ClinicComment on above:Performed By: #### CBC #### [facility] [address] [place] [address] Dr. Jani HaywoodHematocrit (Bld) [Volume fraction]37.9 %Mmbogt73.0-48.0The [facility] ClinicComment on above:Performed By: #### CBC #### [facility] [address] [place] [address] Dr. Jani HaywoodHemoglobin (Bld) [Mass/Vol]12.6 g/qNJwsdjr96.0-16.0The [facility] ClinicComment on above:Performed By: #### CBC #### [facility] [address] [place] [address] Dr. Jani Ruiz #0.02 10e3/ulNormal0.00-0.03The [facility] ClinicComment on above:Performed By: #### CBC #### [facility] [address] [place] [address] Dr. Jani Ruiz %0.3 %Normal0.0-0.5The [facility] ClinicComment on above: Performed By: #### CBC #### [facility] [address] [place] [address] Dr. Jani Winter #1.6 103/ulNormal1.2-3.8The [facility] ClinicComment on above:Performed By: #### CBC #### [facility] [address] [place] [address] Dr. Jani Harrisonmphocytes/100 WBC (Bld)21.5 %Prgxwg43.5-60.0The [facility] ClinicComment on above:Performed By: #### CBC #### [facility] [address] [place] [address] Dr. Jani RevelesUAL DIFF REQNONormalThe [facility] ClinicComment on above: Performed By: #### CBC #### [facility] [address] [place] [address] Dr. Jani Ash (RBC) [Entitic mass]30.4 jwIaqrfc67.7-34.0The [facility] ClinicComment on above:Performed By: #### CBC #### [facility] [address] [place] [address] Dr. Jani Ash (RBC) [Mass/Vol]33.2 g/xHYktbov25.9-35.2The [facility] ClinicComment on above:Performed By: #### CBC #### [facility] [address] [place] [address] Dr. Jani AshV (RBC) [Entitic vol]91.3 wOWkhrne96.0-99.0The [facility] ClinicComment on above:Performed By: #### CBC #### [facility] [address] [place] [address] Dr. Jani Barber #0.5 103/ulNormal0.3-0.8The [facility] ClinicComment on above:Performed By: #### CBC #### [facility] [address] [place] [address] Dr. Jani Cornejoocytes/100 WBC (Bld)6.6 %Normal1.7-12.0[facility] Comment on above:Performed By: #### CBC #### [facility] [address] [place] [address] Dr. Jani Salas #5.1 103/ulNormal1.4-6.5The [facility] ClinicComment on above:Performed By: #### CBC #### [facility] [address] [place] [address] Dr. Jani Foxutrophils/100 WBC (Bld)69.7 %Uaupdo32.0-75.0The [facility] ClinicComment on above:Performed By: #### CBC #### [facility] [address] [place] [address] Dr. Jani Adamson mean volume (Bld) [Entitic vol]10.2 fLNormal9.5-13.5The [facility] ClinicComment on above:Performed By: #### CBC #### [facility] [address] [place] [address] Dr. Jani HaywoodPLT281 103/taJnhnlf038-771Ouj Cleveland ClinicComment on above: Performed By: #### CBC #### [facility] [address] [place] [address] Dr. Jani HaywoodRBC4.15 106/ulCritically low4.20-5.40The [facility] ClinicComment on above:Performed By: #### CBC #### [facility] [address] [place] [address] Dr. Jani HaywoodWBC7.3 103/ulNormal4.0-11.0The [facility] ClinicComment on above: Performed By: #### CBC #### [facility] [address] [place] [address] Dr. Jani HaywoodGLYCOHEMOGLOBIN A1Con 86-54-4201LVY RECOMMENDATIONSEE BELOWNormal The [facility] ClinicComment on above:Result Comment: ADA RECOMMENDED LIMIT 4.0 - 6.0 ADA THERAPEUTIC TARGET < 7.0 ACTION SUGGESTED > 7.0Performed By: #### A1C #### [facility] [address] [address] [address] Jani HaywoodGlucose [Mass/Vol]103 mg/dLNoSalem Regional Medical CenterComment on above:Performed By: #### A1C #### [facility] [address] [place] [address] Dr. Jani HaywoodHbA1c (Bld) [Mass fraction]5.2 %Normal4.5-6.2The [facility] ClinicComment on above:Performed By: #### A1C #### [facility] [address] [place] [address] Dr. Jani Goodwin BOX TEST PT SEND OUTon 28-98-0854UEAW TO REF LAB07/02/2022 NormalThe [facility] ClinicComhenry ford [facility] on above:Performed By: #### NBOX #### [facility] [address] [place] [address] Dr. Jani HaywoodTYPE AND SCREENon 41-27-2074IODA AND SCREENNegativeNoSalem Regional Medical CenterComment on above:Performed By: #### A1C #### [facility] [address] [place] [address] Dr. Jani HaywoodUS PREG TVon 22-77-9260SD PREG TVEXAMINATION: US PREG TV HISTORY: Missed period COMPARISON: [...] Electronically authenticated by: RIMMA BATRES Date: 2022-06-18 16:09[facility] HamiltonOG PANEL 2: 30 to 65on 12-03-2021..NormalThe [facility] ClinicComment on above:Result Comment: Performed at: WBPerformed By: #### [id number] #### [facility] [address] [place] [address] Dr. Jani HaywoodAge Gdln ACOG Vduazqe30-38HchacfGoaSalem Regional Medical CenterComment on above:Performed By: #### [id number] #### [facility] [address] [place] [address] Dr. Jani HaywoodDIAGNOSIS:CommentBlanchard Valley Health System [facility] HospitalComhenry ford [facility] on above: Result Comment: NEGATIVE FOR INTRAEPITHELIAL LESION OR MALIGNANCY. Performed at: WBPerformed By: #### [id number] #### [facility] [address] [place] [address] Dr. Jani HaywoodHPV AptimaNegativeNormalNegativeOhiohealth Hardin Memorial HospitalComment on above:Result Comment: This nucleic acid amplification test detects fourteen high-risk HPV types (16,18,31,33,35,39,45,51,52,56,58,59,66,68) without differentiation. Performed at: =GPerformed By: #### [id number] #### [facility] [address] [place] [address] Dr. Jani HaywoodMethodology:CommentBlanchard Valley Health System Blanch[facility] Valley HospitalComhenry ford [facility] hospital on above: Result Comment: This liquid based ThinPrep(R) pap test was screened with the use of an image guided system. Performed at: WBPerformed By: #### [id number] #### [facility] [address] [place] [address] Dr. Jani HaywoodNote:CommentBlanchard Valley Health System Blanchard Valley HospitalComment on above:Result Comment: The Pap smear is a screening test designed to aid in the detection of premalignant and malignant conditions of the uterine cervix. It is not a diagnostic procedure and should not be used as the sole means of detecting cervical cancer. Both false-positive and false-negative reports do occur. . Performed at: WBPerformed By: #### [id number] #### [facility] [address] [place] [address] Dr. Jani HaywoodPerformed by:CommentLima City Hospital on above: Result Comment: Nikki Schwab, Relief Cook (ASCP) Performed at: WBPerformed By: #### [id number] #### [facility] [address] [place] [address] Dr. Jani HaywoodSpecimen adequacy:CommentLima City Hospital on above:Result Comment: Satisfactory for evaluation. Endocervical and/or squamous metaplastic cells (endocervical component) are present. Performed at: WBPerformed By: #### [id number] #### [facility] [address] [place] [address] Dr. Jani Haywood Vital Signs Date TimeVital SignValuePerforming OpuxdxmowJgfzojnl48-46-2068 09:27-0500Body mass index (BMI) [Ratio]20.73 kg/a4Ufiux Pollo DO Work Phone: [phone] [place], [place] [address]Xlutxpdstr08-06-3056 09:27-0500Body wzxegm58.07 kgCorey Pollo DO Work Phone: [phone] [place], [place] [address]Cywxjhdgca75-43-1940 09:27-0500Diastolic blood mm[Hg]Ivan Pollo DO Work Phone: [phone] [place], [place] [address]Oghvlpwyqg02-09-1465 09:27-0500Systolic blood myhwmidc794 mm[Hg]Ivan Pollo DO Work Phone: [phone]02-08-2024 09:32-0500Body mass index (BMI) [Ratio]25.88 kg/i6Jgbez Pollo DO Work Phone: [phone]-[facility] HospitalRpqbsejckq20-08-1702 09:32-0500Body thaarw24.28 kgCorey Pollo DO Work Phone: [phone]02-08-2024 09:32-0500Diastolic blood cuoztzhv56 mm[Hg]Ivan Pollo DO Work Phone: [facility] HospitalVzkwrsyttt53-51-7547 09:32-0500Systolic blood dwjahwfj701 mm[Hg]Ivan Pollo DO Work Phone: [facility] HospitalHfemovagpk57-10-7916 14:33-0500Body mass index (BMI) [Ratio]26.24 kg/m2Terese Andrea PA Work Phone: [facility] HospitalZwfupqkkbt67-74-2170 14:33-0500Body jifast12.19 kgTerese Andrea PA Work Phone: [facility] HospitalLfxwieqqds65-67-3487 14:33-0500Diastolic blood umlhtknf26 mm[Hg]Terese Andrea PA Work Phone: [facility] HospitalJfrcwtgiab34-92-3728 14:33-0500Systolic blood mm[Hg]Terese REYES Work Phone: [facility] HospitalJsklgwmvxx83-62-8615 14:10-0400Body zovgup378.02 cmSivy Oconnor Other [employer] Other 06-05-2022 14:10-0400Body mass index (BMI) [Ratio] 20.55 kg/z5IntwbkjpaMegan Oconnor Other [employer] Other 06-05-2022 14:10-0400Body wgvmxivjnkr98.9 [degF] Megan Oconnor Other [employer] Other 06-05-2022 14:10-0400Body gmnhop25.62 kgStbernard Oconnor Other [employer] Other 06-05-2022 14:10-8061MnP5% (BldA) [Mass fraction]97 % Megan Oconnor Other [facility] [employer] Other Encounters Encounter DateEncounter TypeCare ProviderFacilityStart: 10-28-2024 End: 90-23-9600csqmqlqdbuZOWGSPO S WRIGHTNot AvailableStart: 10-28-2024 End: 88-80-9748Blofvpe encounter procedurePrecious Lanier AUD Work Phone: noms SH AUDComment on above:Sensorineural hearing loss, bilateral (Primary Dx)Start: 10-28-2024 End: 52-87-3778Seqvlu flowsBrian Lanier AUD Work Phone: noms AUDStart: 10-28-2024 End: 12-83-7974Faadlp flowsBrian Lanier AUD Work Phone: noms AUDStart: 07-21-2024 End: 57-51-5276gqlmxlfqzpIGUBQ HAHNFacility:[facility] Hospitaltart: 07-21-2024 End: 99-02-8988Mkdjgar encounter procedureGayleaj Clarissa AUD Work Phone: AudiologyComment on above:Sensorineural hearing loss, bilateral (Primary Dx); Cochlear implant follow-upStart: 04-26-2024 End: 47-21-0834Jqhqfe flowsheetCorey Pollo DO Work Phone: [facility] BCP OBStart: 04-26-2024 End: 46-75-1410Lgujcl flowsheetCorey Pollo DO Work Phone: [facility] BCP OBStart: 04-26-2024 End: 45-89-2234Rqilksjnj Result EncounterCorey Pollo DO Work Phone: noms External Department UnsolicitedStart: 04-26-2024 End: 91-05-3086Tvekybd encounter procedureCorey Pollo DO Work Phone: noms HealthcareStart: 04-26-2024 End: 23-18-2078Udyyzbjw preventive med est patient 40-64yrsCorey Pollo DO Work Phone: [facility] BCP OBComment on above:Well woman exam with routine gynecological exam; Breast cancer screening by mammogramStart: 04-26-2024 End: 05-32-3174elnfmxaqpaFJCKB Robert AvailableStart: 07-30-2023 End: 74-83-2918Ntgkuoxa flow sheetCoresalo Pollo DO Work Phone: [facility] BCP OBComment on above:Third trimester ; Small for gestational age (SGA)Start: 07-23-2023 End: 43-40-4966Dyhjedbq flow sheetTerese REYES Work Phone: [facility] BCP OBComment on above:Low blood pressure reading; Dizziness; Feeling faint; Third trimester pregnancyStart: 64-86-3217Xjygfobgv encounterNvsarwat [place] [facility] and Neck InstituteComment on above:Contractor [employer] - OtherStart: 48-45-3803dzxsxrtvpuTrrrx Hahn AUD Work Phone: AudiologyStart: 09-24-2022 End: 73-35-6623Rezhhkx encounter procedureDahood Becker PA-C Work Phone: OtolaryngologyComment on above:Cochlear implant in place (Primary Dx); Sensorineural hearing loss, asymmetrical; Sensorineural hearing loss, bilateralStart: 07-29-2022 End: 34-88-2360puzbmtgcxmOW ARIEL SANTANAFacility:E0Makeq: 07-18-2022 End: 34-83-1498spxcspdvwhLD ROSA CARTERFacility:C4Znrjm: 84-67-3635Urrgwrlau for preprocedural laboratory examinationDR ROSA [facility] Start: 07-16-2022 End: 28-82-2827gcvbdycngpEG ROSA Roycility:V7Faehr: 07-16-2022 End: 99-01-1134Zjillljcm for preprocedural laboratory examinationDR ROSA Roycility:K7Kyzlq: 07-02-2022 End: 88-01-2012rcoeumcycyZS ROSA Roycility:Z0Iunjz: 06-18-2022 End: 31-25-7594wzzzdcxcupGX ROSA CARTERFacility:S5Anbzt: 11-27-2021 End: 42-19-0684ayrjlbwixxFM ROSA CARTERFacility:H7Orowk: 11-24-2021 End: 56-71-7529ufpijwiyxuAlvrzlrol Breault Other [facility] [employer] Other Start: 37-50-8767Iifvqv outpatient visit 25 minutes [facility] Kevin Procedures DateProcedureProcedure DetailPerforming ClinicianStart: 25-02-1571DUFQJTA IMPLANTABLE DEVICES (E.G. COCHLEAR IMPLANTS (CI), BONE ANCHORED (SHAWN), SENSORY DEVICES)uYlissa WOOD Work Phone: Start: 60-08-3364TNX,APTIMA HPV,AGE GDLNCorey Pollo DO Work Phone: Start: 12-03-4724Qauaxenvfgk observation [Identifier] in Cervix by Cyto stainCorey Pollo DO Work Phone: Start: 78-04-6361Eegsx dip stick/tablet rgnt non-auto w/o micrscpCorey Pollo DO Work Phone: Start: 09-11-4817Ehiod dip stick/tablet rgnt non-auto w/o micrscpAmy Zully REYES Work Phone: Start: 92-50-4121Aubdenvqjjs observation [Identifier] in Cervix by Cyto stainAmy Zully REYES Work Phone: Plan of Treatment DateCare ActivityDetailAuthorStart: 90-44-7925NTCLHITOEUNJ (3 - PPSV23 if available, else PCV20)PNEUMOCOCCAL (3 - PPSV23 if available, else PCV20) [facility]: 60-97-3293Tftij microalbumin profileDTaP,Tdap,Td Vaccine (3 - Td or Tdap)[facility]: 76-22-3428Ukipsebdaxjc vaccination Pneumococcal Vaccine (3 of 3 - PCV20 or PCV21)[facility]: 04-26-2029 Screening for malignant neoplasm of cervixNOMS HealthcareStart: 04-22-2028 Screening for malignant neoplasm of cervixNOMS HealthcareStart: 07-20-2025 End: 10-23-9993Hdjpuox encounter procedureAudiologyComment on above:CI follow up CI CheckStart: 05-01-2025 End: 90-46-2469Njkyglj encounter ilopqmwao92/10/2025 10:00 AM EST Office Visit [facility] [address] [phone] Ivan Abad, DO [address] [place] [address] [facility] BCP OBStart: 15-46-8181Nkkangxeq vaccination Influenza Vaccine (Season Ended)[facility] HealthcareStart: 04-26-2024 End: 38-67-6126NO Breast - bilateral ScreeningBilateral screening mammogram Imaging Routine Breast cancer screening by mammogram Expected: 04/26/2024 (Approximate), Expires: 06/26/2025[facility] Work Phone: comment on above:Expected: 04/26/2024 (Approximate), Expires: 06/26/2025Start: 04-26-2024 End: 33-98-6503Wfzynbb encounter procedureNOMS BCP OBComment on above:Arrived Start: 00-30-6399Ibcou-19 Vaccine ( season)Covid-19 Vaccine ( season)[facility]: 73-54-7516Fouqrddzy vaccinationInfluenza Vaccine (#1)[facility] HealthcareStart: 08-13-2023 End: 51-00-6418Fsmdblc encounter utpfxgatq78/22/2024 11:20 AM EST Routine [facility] [address] [place] [address] Ivan Abad, DO [address] [place] [address] [facility] BCP OBStart: 07-30-2023 End: 34-64-2588MT biophysical profile w non stress testUS biophysical profile w non stress test Imaging Routine Small for gestational age (SGA) Expected: 07/30/2023 (Approximate), Expires: 07/30/2024[facility] Work Phone: comment on above:Expected: 07/30/2023 (Approximate), Expires: 07/30/2024Start: 07-30-2023 End: 04-49-3836Saljpov encounter iisicedyr42/08/2024 9:20 AM EST Routine [facility] [address] [address] Ivan Abad, DO [address] [place], [place] [id number] [facility] BCP OBStart: 07-23-2023 End: 58-91-2645Kwbttfekafez / ancillary services hezqacnkdt50/01/2024 3:00 PM EST Ancillary Procedure [facility] [address] [address] [facility] BCP OBStart: 42-21-9285Gyrcymkds vaccination [facility]: 83-73-7555XLFLSOIQEQ ASSESSMENTDEPRESSION ASSESSMENT [facility]: 79-79-0082DUGJV-19 VACCINE (3 - Booster for Pfizer series)COVID-19 VACCINE (3 - Booster for Pfizer series)[facility]: 87-49-7406TjtctfmyitnCHFXETTJFPfgmlsaiw ClinicStart: 70-43-3320Qjdykxyjt for malignant neoplasm of breastNOMS HealthcareStart: 00-68-5870ZFC TESTINGHPV TESTINGTriHealthtart: 12-09-0572CJQ TESTINGPAP TESTINGTwin City Hospital Start: 50-12-7416Jntgmtqlp for malignant neoplasm of cervixCervical Cancer ScreeningTriHealthtart: 51-14-2475Nsucwemsk B Vaccine (1 of 3 - 19+ 3- dose series)Hepatitis B Vaccine (1 of 3 - 19+ 3-dose series)[facility] Start: 76-86-6805Pzrfz microalbumin profileDTAP,TDAP,TD (1 - Tdap)[facility]: 42-13-5787Dawefjn ScreeningAnxiety ScreeningTriHealthtart: 03-14-0945Ybjkaxyuli ScreeningDepression ScreeningTriHealthtart: 08-98-1056UUCGZWKWH C SCREENINGHEPATITIS C SCREENINGTriHealthtart: 31-06-0066Qafpbrqxk C screeningHepatitis C ScreeningTriHealthtart: 30-89-6150OYL SCREENINGHIV SCREENINGTriHealthtart: 95-13-1142JYV screeningHIV ScreeningTriHealthtart: 53-10-3331SUJNXKJFY B (1 of 3 - 3- dose series)HEPATITIS B (1 of 3 - 3-dose series)[facility] City HospitalTHIN PREP TIS PAP AND HR HPV DNATHIN PREP TIS PAP AND HR HPV DNA Pathology and Cytology Routine Well woman exam with routine gynecological exam Ordered: 04/26/2024[facility] HospitalComment on above:Ordered: 04/26/2024 Immunizations Immunization DateImmunizationNotesCare VukbjcdtQjkfbvbl98-99-7535mtlsvwggs virus vaccine, unspecified formulationTerese REYES Work Phone: [facility] HospitalGoorsaldhu92-33-9329vkhundkucpzy polysaccharide vaccine, 23 valentDavid Eugenio PHILLIPS Work Phone: [facility] HospitalZndbcx51-33-2191sapajclalzhx conjugate vaccine, 13 valentDavid Eugenio PHILLIPS Work Phone: [facility] Payers DatePayer CategoryPayerPolicy [id number] HospitalBCBS [id number] 28-44-9262Spaqhnz Health Insurance [id number] 05-58-9213Fashhkp5.2.840.177370.1.13.159.2.7.3.829466.41004-81-5214Cbitrvk [id number] 2.16.840.1.109803.3.57[id number] 2.16.840.1.035074.3.57[id number] 2.16.840.1.384029.3.57[id number] 2.16840.1.425061.3.57[id number] 2.16.840.1.858616.3.57[id number] 2.16.840.1.022167.3.579.[id number] 2.16.840.1.762713.3.579.[id number] 2.840.1.911805.3.57[id number] 2.16840.1.858674.3.579.2.485475-47-1237Q[employer] Blue [id number] 2.16840.1.629588.62Gehxgrl2250621 2.16840.1.115675.3.579.2.593 Social History DateTypeDetailFacilityStart: 03-16-2023 End: 51-62-3781Lra Assigned At Birth[facility] [employer] Other Start: 09-24-2022 End: 82-30-8482Resdqkr smoking status NHISNever smoked tobaccoTwin City Hospital Start: 09-24-2022 End: 18-28-5416Gtxpcwx use and exposureSmokeless tobacco non-userTriHealthtart: 53-15-3630Qnwnprb intakeCurrent non-drinker of alcohol (finding) [facility]: 23-94-1569Ljy Assigned At [facility] Start: 07-23-2023 End: 99-40-5073Zylrclf intakeEx-drinker (finding)[facility] HealthcareStart: 03-16-2023 End: 78-77-4238Rtxmvzx of Social functionJORDAN VALLEY MEDICAL CENTER HealthcareStart: 46-54-9806Ppmewsr Commentoccasional alcohol use, Caffeine intake: noneNOMS HealthcareStart: 22-25-6084TgdsfkjlfBFSV HealthcareStart: 36-36-6252Weqdrr identityIdentifies as female gender (finding)[facility] HealthcareStart: 72-09-1044Oavigd orientation Heterosexual (finding)[facility] HealthcareNational Score (1-100), lower number is lower qytg27JiiqceptsTwin City Hospital Medical Equipment Procedure CodeEquipment CodeEquipment Original TextEquipment IdentifierDates Isn-Hs-P-Kind Implant - [id number]: 63-29-5911Hfjjcma on above: Description: NUCLEUS SOUND PROCESSORSImplant Nucleus Cochlear Slim Modiolar Electrode Ci532 Sterile Latex Free - [id number]: 09-02-2017 Goals DatePatient GoalDesired Activity/StatePersonal health goal Clinical Notes 11-24-2021 to 10-28-2024 Note Date & YgzlPpglQwjgobmi49-46-1703 History of Present illness Narrative* Precious Lanier, AUD - 10/28/2024 3:30 PM EDT EOW service: Pt was seen today to have her right hearing aid sent for end of warranty care. She hasno concerns with the instrument at this time. Programmed a Lemon Curve Phonak P50 BI for interim use. Pt's PANTOJA sent to [employer] for check/repair. Once received, pt to be contacted for supervisor picking crew after settingsare verified. Pt prefers supervisor picking crew in [place] location documented in this encounterFulton State HospitalJqwrbzrxmp54-45-1826 History of Present illness Narrative* Yulissa Romo AUD - 07/21/2024 8:30 AM EST Images from the original note were not included. [facility] [place] [facility], Speech [facility] Balance Services COCHLEAR IMPLANT ADULT PROGRAMMING Name: Amy ALFARO [facility]#: [id number] Date of Service: July 21, 2024 Date of : 1980 Age: [age] year old COCHLEAR IMPLANT INFORMATION (see below for all device details) Right ear: Sendia Audeo RITE Hearing Aid that was fit at an outside facility (November 2021) and is being managed by that facility. Left ear: External Processor: Cochlear Indix [id number] (Nucleus 8; upgraded around January 2023) Processor SN: [id number] Processor ([id number]) SN: [id number] Magnet strength: 2 Internal Device: Cochlear CI532 Profile with Slim Modiolar Electrode Array Internal Device SN: [id number] Inactive electrodes: None Surgery Date: 09/02/2017 Initial activation date: 09/29/217 Surgeon: Reyna Yeung M.D. Accessories: Remote Control (CR310) Mini Microphone 2+ Phone Clip HISTORY: Ms. ALFARO was seen for annual evaluation of the device. The patient reported: Processor and [id number] coil were replaced in May 2024 as it stopped working Denied pain/discomfort at the magnet site Reported she has been having some trouble hearing speech recently and has needed to ask for people to repeat more. She would like the volume increased some today. UNAIDED AUDIOMETRIC TESTING: Audiogram from 09/28/2017 AIDED AUDIOMETRIC TESTING: Audiologic testing was completed in the sound field with the speech processor at user settings (Program: 1; Volume: 6; Sensitivity: 12) before programming. See the SmartForm Audiogram for obtained thresholds. Speech perception testing was completed at 60 pneumatic tester mechanic using recorded stimuli in the sound field at 0 degrees azimuth. NOTE: The contralateral ear was plugged and muffed during testing. The following testing and results were obtained: Zwosybxbr-Avonrnk-Hlftavogh Words (CNC) Test Condition List # Phonemes Words Clinically significant change compared to previous visit? Clinically significant change compared to BEST? Clinically significant change compared to Evaluation (07/19/2014)? Left Ear 10 (-25) 96% 88% No (76% on 07/21/23) No (92% on 09/29/18) Yes, improved (0%) Bimodal 9 (1-25) 100% 100% Yes, improved (80% on 07/21/23) No (100% on 03/18/22) Yes, improved (68%) AZ BIO (+5 SNR) Test Condition List # Score Clinically significant change compared to previous visit? Clinically significant change compared to BEST? Clinically significant change compared to Evaluation (07/19/2014)? Left Ear 5 63% No (61% on 07/21/23) No (74% on 12/09/19) DNT Bimodal 6 73% No (57% on 07/21/23) No (68% on 12/09/19) NEW BEST TODAY DNT Summary: Aided detection levels were obtained between 10-30 dB HL from 250-6000 Hz using the LEFT CI only. Speech perception performance remains stable compared to previous and best scores. COCHLEAR IMPLANT PROGRAMMING/TROUBLESHOOTING: Dataloggin hrs/day LEFT Programming: Headset pressure, magnet strength, and incision site were checked with no problems noted. Electrode impedances, used to monitor internal device function, were measured across the electrode array. Impedances were WNL across all active electrodes. Review of impedances obtained todaywith comparison to previous 4 visits and 60-day postactivation baseline did not identify any remarkable changes or atypical measurements. Programming consisted of setting Comfort (C) levels at loud, but comfortable using a loudness scale. Several active electrodes were measured and the rest were interpolated. The function/use of the programs created were discussed and are listed below: Left Ear Program/Map # Program Feature 1 23 SCAN (ADRO + ASC), SNR-NR,WNR 2 23 SCAN 2 FF (ADRO + ASC), SNR-NR,WNR Active controls include: volume, forward focus and telecoil. Battery Life: Rechargeable: 26 hours Disposable: 45 hours SUMMARY AND RECOMMENDATIONS: Counseling Points: * Schedule appointment with Rimma Becker PA-C in 1-year for continued medical care. This appointment has been scheduled for 07/20/2025. * Continue to monitor magnet/incision site for pain, redness, swelling, scabbing etc. Should any ofthese occur discontinue use of device immediately and contact the office. * Continue use of right hearing aid and left sound processor during all waking hours. Follow-up Programming: It was recommended that the patient return in 1 year for monitoring of auditory performance and potential programming needs. This appointment has been scheduled for 07/20/2025. The center should be contacted if there are problems or concerns before that time. NOTE: It should be noted that the patient left the appointment with all the equipment. None of the patient's equipment was left in the Audiology Section of the Clinic. TOTAL TIME: 60 minutes Programming left 10 minutes Evaluation of auditory status 32 minutes SARAH Hastings Doctor of Audiology ([place]) Certified Professional Controller I verify that I have reviewed the history, test results, and interpretation for this patient. Eloisa Champion, GIOVANNY/A Clinical Land Sales Agent documented in [facility] encounterT[facility]01-30-[facility]25 NoteHNO ID: [id number] Author: YULISSA ROMO AUD Service: ? Author Type: Land Sales Agent Type: Progress Notes Filed: 07/21/2024 11:17 Note Text: [facility] [place] [facility], Speech and Balance Services COCHLEAR IMPLANT ADULT PROGRAMMING Name: Amy ALFARO [facility]#: [id number] Date of Service: July 21, 2024 Date of : 1980 Age: [age] year old COCHLEAR IMPLANT INFORMATION (see below for all device details) Right ear: Phonak Audeo RITE Hearing Aid that was fit at an outside facility (November 2021) and is being managed by that facility. Left ear: External Processor: Cochlear [employer] [id number] (Nucleus 8; upgraded around January 2023) Processor SN: [id number] Processor ([id number]) SN: [id number] Magnet strength: 2 Internal Device: Cochlear CI532 Profile with Slim Modiolar Electrode Array Internal Device SN: [id number] Inactive electrodes: None Surgery Date: 09/02/2017 Initial activation date: 09/29/217 Surgeon: Reyna Yeung M.D. Accessories: Remote Control (CR310) Mini Microphone 2+ Phone Clip HISTORY: Ms. ALFARO was seen for annual evaluation of the device. The patient reported: Processor and [id number] coil were replaced in May 2024 as it stopped working Denied pain/discomfort at the magnet site Reported she has been having some trouble hearing speech recently and has needed to ask for people to repeat more. She would like the volume increased some today. UNAIDED AUDIOMETRIC TESTING: Audiogram from 09/28/2017 AIDED AUDIOMETRIC TESTING: Audiologic testing was completed in the sound field with the speech processor at user settings (Program: 1; Volume: 6; Sensitivity: 12) before programming. See the SmartForm Audiogram for obtained thresholds. Speech perception testing was completed at 60 pneumatic tester mechanic using recorded stimuli in the sound field at 0 degrees azimuth. NOTE: The contralateral ear was plugged and muffed during testing. The following testing and results were obtained: Zfaopkkqp-Azaagxs-Nohdvyqwb Words (CNC) Test Condition List # Phonemes Words Clinically significant change compared to previous visit? Clinically significant change compared to BEST? Clinically significant change compared to Evaluation (07/19/2014)? Left Ear 10 (1-25) 96% 88% No (76% on 07/21/23) No (92% on 09/29/18) Yes, improved (0%) Bimodal 9 (1-25) 100% 100% Yes, improved (80% on 07/21/23) No (100% on 03/18/22) Yes, improved (68%) AZ BIO (+5 SNR) Test Condition List # Score Clinically significant change compared to previous visit? Clinically significant change compared to BEST? Clinically significant change compared to Evaluation (07/19/2014)? Left Ear 5 63% No (61% on 07/21/23) No (74% on 12/09/19) DNT Bimodal 6 73% No (57% on 07/21/23) No (68% on 12/09/19) NEW BEST TODAY DNT Summary: Aided detection levels were obtained between 10-30 dB HL from 250-6000 Hz using the LEFT CI only. Speech perception performance remains stable compared to previous and best scores. COCHLEAR IMPLANT PROGRAMMING/TROUBLESHOOTING: Dataloggin hrs/day LEFT Programming: Headset pressure, magnet strength, and [...] Left Ear Program/Map # Program Feature 1 23 SCAN (ADRO + ASC), SNR-NR,WNR 2 23 SCAN 2 FF (ADRO + ASC), SNR-NR,WNR Active controls include: volume, forward focus and telecoil. Battery Life: Rechargeable: 26 hours Disposable: 45 hours SUMMARY AND RECOMMENDATIONS: Counseling Points: * Schedule appointment with Rimma Becker PA-C in 1-year for continued medical care. This appointment has been scheduled for 07/20/2025. * Continue to monitor magnet/incision site for pain, redness, swelling, scabbing etc. Should any of these occur discontinue use of device immediately and contact the office. * Continue use of right hearing aid and left sound processor during all waking hours. Follow-up Programming: It was recommended that the patient return in 1 year for monitoring of auditory performance and potential programming needs. This appointment has been scheduled for 07/20/2025. The center should be contacted if there are problems or concerns before that time. NOTE: It should be noted that the patient left the appointment with all the equipment. None of the patient's equipment was left in the Audiology Section of the C (more content not included)...[facility]11-05[facility]24 History of Present illness Narrative* Hailey Ocampo LPN - 04/26/2024 9:00 AM EST Reason for Appointment: Patient ID: Amy Alfaro is a 43 y.o. female who presents for Gynecologic Exam Patient presents today for Annual Exam. MEDICATIONS Current Outpatient Medications Medication Instructions cetirizine (ZYRTEC) 10 mg, Oral, Daily 27-1 MG tablet 1 tablet, Oral, Every 24 hours ALLERGIES Allergies Allergen Reactions Octacosanol Cough Other Unknown PROBLEMS Active Ambulatory Problems Diagnosis Date Noted Small for gestational age (SGA) 08/27/2023 Resolved Ambulatory Problems Diagnosis Date Noted [...] Constitutional: Appearance: Normal appearance. She is well-developed. Genitourinary: Vulva normal. Breasts: Breasts are soft. Right: Normal. Left: Normal. Cardiovascular: Rate and Rhythm: Normal rate and [...] nursing note reviewed. Exam conducted with a bone puller present. Vitals: Estimated body mass index is 20.73 kg/m as calculated from the following: Height as of 02/20/23: 5' 3 . Weight as of this encounter: 117 lb. BP: 110/70 Patient's last menstrual period was 03/26/2024 (exact date). ASSESSMENT & PLAN ICD-10-CM 1. Well woman exam with routine gynecological exam Z01.419 THIN PREP TIS PAP AND HR HPV DNA 2. Breast cancer screening by mammogram Z12.31 Bilateral screening mammogram Bilateral screening mammogram Annual: Patient presents today for an annual exam. Patient states she is doing well and has no complaints. Pap was obtained without difficulty and patient given mammogram order to have scheduled/obtained. Orders Placed This Encounter Procedures Bilateral screening mammogram Follow Up: Patient is to return in one year for annual unless needed otherwise. Documented by Hailey Ocampo LPN on behalf of: Ivan Abad DO documented in this encounterFulton State [id number] History of Present illness Narrative* Ivan Abad DO - 07/30/2023 9:20 AM EST Reason for Appointment: Patient ID: Amy Alfaro [...] of: Ivan Abad DO documented in this encounterFulton State [id number] History of Present illness Narrative* ERIC Smallwood - 07/23/2023 2:20 PM EST Reason for Appointment: Patient ID: Amy Alfaro [...] behalf of: ERIC Smallwood documented in this encounterFulton State [id number] Miscellaneous Notes* Telephone Encounter - Pamela Huitrononnell - 10/10/2022 3:51 PM EDT Assistant Strength Coach: Katerina Mina Patient: Hasmukh Alfaro 1980 Clinic: [facility] Land Sales Agent: Dr. Yulissa Romo Appointment Length: 45 Minutes What are you looking to accomplish?: I d like to learn more about the Nucleus 8 and the process of upgrading Recipient's Stated Reason for Upgrading Clinic Request - Land Sales Agent recommended it [employer] - Processor more [...] steps are Acquisition Methods Recipient will receive Xje-cn-Jowhex cost estimate once order placed Next Steps If recipient decides to move forward with pursuing a Nucleus 8 upgrade and provides us with the necessary order information, we will start an order on their behalf. You will hear from Cochlear s Full Decator Operator team, via email/DocuSign to gain your approval or regarding an LMN to allow this patient to move forward in the process. Following completion of the upgrade process, I will invite the recipient to schedule time for a complimentary onboarding with our [employer] team so they can begin to maximize the use of their new Cochlear equipment. documented in this encounterTwin City Hospital04-20-2023 History of Present illness Narrative* ISRAEL Champion - 10/09/2022 12:57 PM EDT Email follow up from Cochlear: Dr. Romo, I recently met virtually with one of your patients, Hasmukh Alfaro, who had contacted [employer]chlear to discuss upgrading their current processor. During our meeting the recipient provided consent to share a recap with you. Here is an overview of the meeting for your records to ensure we are cross aligned intheir care. Please feel free to reach out to me with any questions. Upgrade Consultation Clinic Patient Report Assistant Strength Coach: Katerina Mina Patient: Hasmukh Alfaro 1980 Clinic: [facility] Land Sales Agent: Dr. Yulissa Romo Appointment Length: 45 Minutes What are you looking to accomplish?: I d like to learn more about the Nucleus 8 and the process of upgrading Recipient's Stated Reason for Upgrading Clinic Request - Land Sales Agent recommended it Use[employer] - Processor more [...] steps are Acquisition Methods Recipient will receive Kmo-ot-Edaoaq cost estimate once order placed Next Steps If recipient decides to move forward with pursuing a Nucleus 8 upgrade and provides us with the necessary order information, we will start an order on their behalf. You will hear from Cochlear s Full Decator Operator team, via email/DocuSign to gain your approval or regarding an LMN to allow this patient to move forward in the process. Following completion of the upgrade process, I will invite the recipient to schedule time for a complimentary onboarding with our [employer] team so they can begin to maximize the use of their new Cochlear equipment. Warm Regards, Eloisa Vazquez, [facility]/A Clinical Land Sales Agent documented in this encounterTwin City Hospital04-05-2023 Instructions* Patient Instructions* Rimma Becker PA-C - 09/24/2022 9:[address] Audra Umanzor use his name on paperwork documented in this encounterTwin City Hospital04-05-2023 History of Present illness Narrative* Rimma Becker PA-C - 09/24/2022 9:38 AM EDT History of Present Illness Ms. AMY ALFARO is a 41 year old year old female presenting for: referred by SELF And is a patient of DO Abel Card DO [address] [place] [address] Communication will be via the electronic record [...] (FLONASE) 50 mcg/actuation nasal spray Use 1 [place] in each nostril as needed. multivitamin (DAILY [...] years to stay established with practice Rimma Becker PA-C Otology Medical Decision Making: Problems: Low: Stable chronic illness Risk: Minimal: Minimal risk from testing/treatment Medical Decision Making Level: 2 - Straightforward documented in this encounterTwin City Hospital01-27-2023 NoteEXAMINATION: US PELVIS HISTORY: Surgical procedure COMPARISON: Ultrasound less than 14 weeks 07/16/2022 TECHNIQUE: Transabdominal and transvaginal sonographic examination. FINDINGS: Final images show an empty endometrial cavity. IMPRESSION: 1. No appreciable products of conception within endometrial cavity following dilation and curettage. Electronically authenticated by: ALEXI BRANCH Date: 2022-07-18 08:21[facility] Evaluation note* Encounter Date Diagnosis Assessment Notes Treatment Notes Treatment Clinical Notes Nov, Bronchitis (ICD-10 - J40) Take [...] to go away MUCINEX DM and ZYRTEC Nov,Fungal rash of trunk (ICD-10 - B36.9) [employer] Other Evaluation note* Diagnosis Cochlear implant in place- Primary Other postprocedural status Sensorineural hearing loss, asymmetrical Sensorineural hearing loss, bilateral documented in this encounter [facility]* Diagnosis Low blood pressure reading Nonspecific low blood pressure reading Dizziness Dizziness and giddiness Feeling faint Third trimester state, incidental documented in this encounter [facility] HealthcareEvaluation note* Diagnosis Third trimester state, incidental Small for gestational age (SGA) documented in this encounter [facility] HealthcareEvaluation note* Diagnosis Well woman exam with routine gynecological exam Routine gynecological examination Breast cancer screening by mammogram documented in this encounter [facility] HealthcareEvaluation note* Diagnosis Sensorineural hearing loss, bilateral- Primary Cochlear implant follow-up Other specified aftercare following surgery documented [facility] encounter [facility]* Diagnosis Sensorineural hearing loss, bilateral- Primary documented in this encounter [facility] HealthcareHistory general Narrative - Reported* Type Description Date Medical History bilateral hearing loss Surgical Historycochlear implantSurgical HistoryD&C [facility] [employer] Other Summary Purpose Family History No Family History Records FoundNo Family History Records FoundNo Family History Records Found Advance Directives No Advanced Directives Records FoundNo Advanced Directives Records FoundNo Advanced Directives Records Found Additional Source Comments REASON FOR VISIT (unrecogniz ed section and content) ReasonCommentsHearing LossNew. Self referral. CI LT side. Last audio 03/18/22. Denies otalgia and otorrhea.ReasonCommentsCare Coordinator - OtherReasonComments DizzinessHypotensionReasonCommentsRoutine VisitReasonComments Gynecologic ExamReasonCommentsCochlear Implant INFORMATION SOURCE (unrecogn ized section and content) DATE CREATED AUTHOR 07/30/2022 [facility] DATE CREATED AUTHOR AUTHOR'S ORGANIZ ATION 07/23/2024 [facility] DATE CREATED AUTHOR AUTHOR'S ORGANIZ ATION 10/30/2024 [facility] EPIC Source Comments (unrecognize d section and content) In the event this informatio n is protected by the Federal Confidentiality of Alcohol and Drug Abuse Patient Records regulations: The Federal rules restrict any use of the information to criminally investigate or prosecute any alcohol or drug abuse patient.[facility] HospitalIn the event this information is protected by the Federal Confidentiality of Alcohol and Drug Abuse Patient Records regulations: The Federal rules restrict any use of the information to criminally investigate or prosecute any alcohol or drug abuse patient.[facility] HospitalIn the event this information is protected by the Federal Confidentiality of Alcohol and Drug Abuse Patient Records regulations: The Federal rules restrict any use of the information to criminally investigate or prosecute any alcohol or drug abuse patient.[facility] HospitalIn the event this information is protected by the Federal Confidentiality of Alcohol and Drug Abuse Patient Records regulations: The Federal rules restrict any use of the information to criminally investigate or prosecute any alcohol or drug abuse patient.[facility] Care Teams (unrecognized sec tion and content) Team MemberRelationshipSpecialtyStart DateEnd Date Abel Sun PCP - GeneralFamily Medicine03/15/14Team MemberRelationshipSpecialtyStart DateEnd Date Abel Sun PCP - GeneralFamily Medicine03/15/14Team MemberRelationshipSpecialtyStart DateEnd Date Abel Sun PCP - GeneralFamily Medicine03/15/14Team MemberRelationshipSpecialtyStart DateEnd Date Ariel Santana MD [address] [place] [address] PCP - General02/16/23Team MemberRelationshipSpecialtyStart DateEnd Date Ariel Santana MD [address] [place] [address] PCP - General02/16/23Team MemberRelationshipSpecialtyStart DateEnd Date Ariel Santana MD [address] [place] [address] PCP - General02/16/23Team MemberRelationshipSpecialtyStart DateEnd Date Ariel Santana MD [address] [place] [address] PCP - General02/16/23Team MemberRelationshipSpecialtyStart DateEnd Date Abel Sun DO PCP - GeneralFamily [facility]03/15/14 Yulissa Romo AUD [address] [place] [id number] Care PartnerAudiology01/12/24Team MemberRelationshipSpecialtyStart DateEnd Date Ariel Santana MD PCP - General02/16/23Team MemberRelationshipSpecialtyStart DateEnd Date Ariel Santana MD PCP - General02/16/23 FOR RECORDS PERTAINING TO PATIENTS WHO ARE [...] BE BASED ON THE PRIMARY CLINICAL RECORDS. [facility] provides no warranty or guarantee of the accuracy or completeness of information in this document.
--- NOTE | 2025-04-21 08:06 | ECG_ITS ---
[facility] Test Date: 2025-04-21 Pat Name: HILLARY ALFARO Department: Room: - Gender: Female Creative Art Director: : 1980 Requested By: IVAN KARIMI Order Number: [id number] Reading MD: TYREL RICHMOND M.D. Measurements Intervals [place] Rate: 47 P: 19 VA: 131 QRS: 58 QRSD: 93 T: 36 QT: 420 QTc: 373 Interpretive Statements SINUS BRADYCARDIA Borderline ECG No previous ECG available for comparison Electronically Signed On 04-21-2025 9:03:40 EDT by TYREL RICHMOND M.D.
== END 2025-04-21 07:57 | disposition home or self-care (01) ==
LOC: PST 07:59
PROVIDERS: PCP Family Medicine; Visit Provider Obstetrics & Gynecology
DX: Z01.810 Encounter for preprocedural cardiovascular examination (principal); Z01.812 Encounter for preprocedural laboratory examination; O02.1 Missed abortion
CPT/HCPCS: 86850; 86900; 86901; 93005

== ENCOUNTER 2025-04-24 10:45 | Day surgery (SDC) | payer BC, SELFPAY ==
--- OUTSIDE RECORDS SUMMARY | 2025-04-20 11:30 | XMS_ITS | Encounter Summary ---
Author Organization [facility] Address [address] [place] [address] Care Team Providers Care Solid Waste Manager Name Role Phone Cruz Rajan MD Primary Care Provider [phone] Encounter Details DateTypeDepartmentCare Team (Latest Contact Info)Zbbdxfsgddl05/30/2025 12:30 PM EDTAncillary Procedure [facility] [address] [address] Missed menses; Positive urine test ([facility]) Social History Tobacco UseTypesPacks/DayYears UsedDateSmoking Tobacco: NeverSmokeless Tobacco: NeverAlcohol UseStandard Drinks/WeekCommentsNot Currently0 (1 standard drink = 0.6 oz pure alcohol)occasional alcohol use, Caffeine intake: none CommentsNoSex and Gender InformationValueDate RecordedSex Assigned at Pbnpqw5801/21/2023 8:01 PM EDTLegal AceSldogm71/15/2023 6:58 PM EDTGender Identity Fufhyh5101/21/2023 8:01 PM EDTSexual AcursmjptwiTwxejara63/02/2023 8:01 PM EDT documented as of this encounter Plan of Treatment DateTypeDepartmentCare Team (Latest Contact Info)Yadrifrryvw24/10/2025 10:00 AM ESTOffice Visit [facility] [address] [place] [address] Camron Abad DO [address] [place] [address] documented as of this encounter Goals GoalPatient Goal TypeAssociated ProblemsRecent ProgressPatient-Stated?Author Reminders Care PlanOB RemindersNoOpen Scheduling, Backgrounddocumented as of this encounter Procedures Procedure NamePriorityDate/TimeAssociated DiagnosisCommentsUS OB TRANSVAGINAL Fsowmbf0104/20/2025 1:43 PM EDT Missed menses Positive urine test (HHS-HCC) documented in this encounter Results * US OB transvaginal (04/20/2025 1:43 PM EDT)Anatomical RegionLateralityModality BodyUltrasoundSpecimen (Source)Anatomical Location / LateralityCollection Method / VolumeCollection TimeReceived Time04/20/2025 2:45 PM EDT Impressions 04/20/2025 3:23 PM EDT Single intrauterine gestational sac with a single pole, absence of cardiac activity questions viability at this time. Correlate with serial beta hCG and CONSUMER CREDIT COUNSELOR consultation. TRANSCRIBED BY: ? ELECTRONICALLY SIGNED BY: Donald Felipe MD Narrative 04/20/2025 3:23 PM EDT FINDINGS: Single intrauterine gestational sac with a normal appearing decidual reaction and yolk sac is visible. A single pole is present, crown-rump length 1.8 cm suggests an 8 week and 2 day gestational age, however no cardiac activity is identified. Closed cervix. No adnexal mass. Procedure Note Donald Felipe MD - 04/20/2025 FINDINGS: Single intrauterine gestational sac with a normal appearing decidualreaction and yolk sac is visible. A single pole is present,crown-rump length 1.8 cm suggests an 8 week and 2 day gestational age,however no cardiac activity is identified. Closed cervix. No adnexalmass. IMPRESSION: Single intrauterine gestational sac with a single pole, absence ofcardiac activity questions viability at this time. Correlate with serialbeta hCG and CONSUMER CREDIT COUNSELOR consultation. TRANSCRIBED BY: ELECTRONICALLY SIGNED BY: Donald Felipe MD Authorizing ProviderResult TypeResult StatusCorey Pollo DOIMG OB US PROCEDURES Final Result documented in this encounter Visit Diagnoses Diagnosis Missed menses Positive urine test (HHS-HCC) documented in this encounter Additional Health Concerns Active ProblemsNoted DateDiagnosed DateOB Kvfarxzqn51/01/2023 documented as of this encounter Care Teams Team MemberRelationshipSpecialtyStart DateEnd Date Cruz Rajan MD [address] [place] [address] PCP - General02/16/23documented as of this encounter
--- OUTSIDE RECORDS SUMMARY | 2025-04-20 12:40 | XMS_ITS | Encounter Summary ---
Author Organization [facility] Address [address] [place] [address] Care Team Providers Care Accounts Payable Clerk Name Role Phone Cruz Rajan MD Primary Care Provider [phone] Encounter Details DateTypeDepartmentCare Team (Latest Contact Info)Zxgezhjeipp13/30/2025 1:40 PM EDTOffice Visit [facility] OBCARMELINA [address] [place] [address] Terese Andrea PA [address] [place] [address] Missed ([facility]) Social History Tobacco UseTypesPacks/DayYears UsedDateSmoking Tobacco: NeverSmokeless Tobacco: NeverAlcohol UseStandard Drinks/WeekCommentsNot Currently0 (1 standard drink = 0.6 oz pure alcohol)occasional alcohol use, Caffeine intake: none CommentsNoSex and Gender InformationValueDate RecordedSex Assigned at Mmjblp7201/21/2023 8:01 PM EDTLegal TkjWwzlrh33/15/2023 6:58 PM EDTGender Identity Roonrx3101/21/2023 8:01 PM EDTSexual GgyuukoqqufCatopzva83/02/2023 8:01 PM EDT documented as of this [...] Date Noted Small for gestational age (SGA) ([facility]) 08/27/2023 Resolved Ambulatory Problems Diagnosis Date Noted [...] nursing note reviewed. Exam conducted with a tunnel kiln firer present. Vitals: Estimated body mass index is [...] to be sent to PAT at [facility]. Documented by Marge Alford LPN on behalf of: Tea Sheehan, MSN, TITLE ATTORNEY-BC documented in this encounter Plan of Treatment DateTypeDepartmentCare Team (Latest Contact Info)Yuzxmrvizbs38/10/2025 10:00 AM ESTOffice Visit [facility] [address] [place] [phone] Camron Abad DO [address] [place], [place] [phone] documented as of this encounter Goals GoalPatient Goal TypeAssociated ProblemsRecent ProgressPatient-Stated?Author Reminders Care PlanOB RemindersNoOpen Scheduling, Backgrounddocumented as of this encounter Visit Diagnoses Diagnosis Missed (HHS-HCC) Missed documented in this encounter Additional Health Concerns Active ProblemsNoted DateDiagnosed DateOB Xwcwcubdg80/01/2023 documented as of this encounter Care Teams Team MemberRelationshipSpecialtyStart DateEnd Date Cruz Rajan MD [address] [facility] [place] [address] PCP - General02/16/23documented as of this encounter
[2025-04-21 08:44] VITALS: BP 112/71; PULSE 50; TEMP 36.4; O2SAT 99; BMI 22.5
--- OUTSIDE RECORDS SUMMARY | 2025-04-24 10:48 | XMS_ITS | Encounter Summary ---
Author Organization [facility] Address [address] [place] [address] Care Team Providers Care International Project Manager Name Role Phone Cruz Rajan MD Primary Care Provider [phone] Encounter Details DateTypeDepartmentCare Team (Latest Contact Info)Cekxyuipukd07/12/2024Clinisync Result Encounter [facility] External Department Unsolicited Ivan Abad, DO [address] [place] [address] Social History Tobacco UseTypesPacks/DayYears UsedDateSmoking Tobacco: NeverSmokeless Tobacco: NeverAlcohol UseStandard Drinks/WeekCommentsNot Currently0 (1 standard drink = 0.6 oz pure alcohol)occasional alcohol use, Caffeine intake: none CommentsYesSex and Gender InformationValueDate RecordedSex Assigned at Unofdx1601/21/2023 8:01 PM EDTLegal BmtKynoxl75/15/2023 6:58 PM EDTGender Identity Cwxmlq0901/21/2023 8:01 PM EDTSexual KztmileanmpHjndjngs34/02/2023 8:01 PM EDT documented as of this encounter Plan of Treatment DateTypeDepartmentCare Team (Latest Contact Info)Ujfvhyjdtce95/10/2025 10:00 AM ESTOffice Visit [facility] [address] [facility] [place] [phone] Ivan Abad, DO [address] [place] [address] documented as of this encounter Goals GoalPatient Goal TypeAssociated ProblemsRecent ProgressPatient-Stated?Author Reminders Care PlanOB RemindersNoOpen Scheduling, Backgrounddocumented as of this encounter Procedures Procedure NamePriorityDate/TimeAssociated DiagnosisCommentsUS OB BPP W NON-QPDNEO8209/01/2023 8:33 AM EDT documented in this encounter Results * US OB BPP W NON-STRESS (09/01/2023 8:33 AM EDT)Anatomical Region LateralityModalityOtherSpecimen (Source)Anatomical Location / Laterality Collection Method / VolumeCollection TimeReceived Time09/01/2023 8:33 AM EDT Narrative 09/01/2023 8:35 AM EDT [facility] ?[address] ? [place], [facility] ? Ultrasound Report ? Signed ? Patient: AMY ALFARO ?MR#: [id number] ?? : 1980 ?Acct:[id number] ?? Age/Sex: 42 / F ?ADM Date: 09/01/23 ?? Loc: [facility] ??250-1 ? Attending Dr: Ivan Abad D.O. ? Ordering Physician: Ivan Abad D.O. ?? Date of Service: 09/01/23 ?? Procedure(s): US OB BPP w non-stress ?? Accession Number(s): [id number] ? cc: Ivan Abad D.O.; Cruz Rajan M.D. ? [facility] ? [address] ? [place] [address] ? Patient Name: ?? AMY LIMNER ? MRN: [facility]:[id number] ? date: 1980 ?Sex: F ?? Assigned Patient Location: [facility] ?? Current Patient Location: [facility] ?? Accession/Order Number: [id number] ?? Exam Date: 09/01/2023 ??08:06 ?Report Date: 09/01/2023 ??08:33 ? At the request of: ?? IVAN ??POLLO ? Procedure: ??US OB BPP w non-stress ? EXAMINATION: US OB BPP w non-stress ? HISTORY: SMALL FOR GESTATIONAL AGE P05.10 ? COMPARISON: No relevant comparison available. ? TECHNIQUE: Ultrasound biophysical profile was performed in the radiology ?? department. ? FINDINGS: ?? BREATHING MOVEMENTS: 2.0 ?? GROSS BODY MOVEMENTS: 2.0 ?? TONE: 2.0 ?? QUALITATIVE AMNIOTIC FLUID VOLUME: 2.0 ? PRESENTATION: CEPHALIC ?? HEART RATE: 139.9 bpm H.B./min ?? AMNIOTIC FLUID VOLUME: 12.4 cm cm ?? GESTATIONAL AGE: 37 weeks 5 days ? CONCLUSION: ? Total biophysical profile score: 8.0 ? Electronically authenticated by: RIMMA ??MEDARDO ?? Date: 09/01/2023 ??08:33 ? Dictated By: ?Rimma Batres M.D. ? Signed By: ?09/01/23 0835 ? DD/ 0833 ? TD/TT: ? Assembler Brazer: Procedure Note Radiology, Radiologist, MD - 09/01/2023 [place] [address] Ultrasound Report Signed Patient: AMY ALFARO LMR#: [id number] : 1980Acct:[id number] Age/Sex: 42 / FADM Date: 09/01/23 Loc: [facility] 250-[address]: Ivan Abad D.O. Ordering Physician: Ivan Abad D.O. Date of Service: 09/01/23 Procedure(s): US OB BPP w non-stress Accession Number(s): [id number] cc: Ivan Abad D.O.; Cruz Rajan M.D. The [place] [address] Patient Name: AMY ALFARO MRN: [facility]:[id number] date: 1980 Sex: F Assigned Patient Location: [facility] Current Patient Location: [facility] Accession/Order Number: [id number] Exam Date: 09/01/2023 08:06 Report Date: 09/01/2023 08:33 At the request of: IVAN ABAD Procedure: US OB BPP w non-stress EXAMINATION: US OB BPP w non-stress HISTORY: SMALL FOR GESTATIONAL AGE P05.10 COMPARISON: No relevant comparison available. TECHNIQUE: Ultrasound biophysical profile was performed in the radiology department. FINDINGS: BREATHING MOVEMENTS: 2.0 GROSS BODY MOVEMENTS: 2.0 TONE: 2.0 QUALITATIVE AMNIOTIC FLUID VOLUME: 2.0 PRESENTATION: CEPHALIC HEART RATE: 139.9 bpm H.B./min AMNIOTIC FLUID VOLUME: 12.4 cm cm GESTATIONAL AGE: 37 weeks 5 days CONCLUSION: Total biophysical profile score: 8.0 Electronically authenticated by: RIMMA BATRES Date: 09/01/2023 08:33 Dictated By: Rimma Batres M.D. Signed By:09/01/23834 DD/ 2 TD/TT: Assembler Brazer: Authorizing ProviderResult TypeResult StatusCorey Pollo DOCLINISYNC IMAGINGFinal Result documented in this encounter Visit Diagnoses Not on filedocumented in this encounter Additional Health Concerns Active ProblemsNoted DateDiagnosed DateOB Mmqiwqznp51/01/2023 documented as of this encounter Care Teams Team MemberRelationshipSpecialtyStart DateEnd Date Cruz Rajan MD [address] [place] [address] [facility] - [facility]02/16/23documented as of this encounter
--- OUTSIDE RECORDS SUMMARY | 2025-04-24 10:48 | XMS_ITS | Encounter Summary ---
Author Organization [facility] Address [address] [place] [address] Care Team Providers Care Director Digital Catalogue Name Role Phone Cruz Rajan MD Primary Care Provider [phone] Encounter Details DateTypeDepartmentCare Team (Latest Contact Info)Xtamstrbhlj52/29/2024linisync Result Encounter [facility] External Department Unsolicited Terese Aguila, ERIC [address] [place] [address] Social History Tobacco UseTypesPacks/DayYears UsedDateSmoking Tobacco: NeverSmokeless Tobacco: NeverAlcohol UseStandard Drinks/WeekCommentsNot Currently0 (1 standard drink = 0.6 oz pure alcohol)occasional alcohol use, Caffeine intake: none CommentsYesSex and Gender InformationValueDate RecordedSex Assigned at [place]ow2001/21/2023 8:01 PM EDTLegal YbbWldbcl12/15/2023 6:58 PM EDTGender Identity Fvjygc3301/21/2023 8:01 PM EDTSexual TkfugpcfmshAzvwymvy17/02/2023 8:01 PM EDT documented as of this encounter Plan of Treatment DateTypeDepartmentCare Team (Latest Contact Info)Dwjombzvmgq95/10/2025 10:00 AM ESTOffice Visit [facility] Korey SPENCER [address] [place] [phone] Camron Abad DO [address] [place] [address] documented as of this encounter Goals GoalPatient Goal TypeAssociated ProblemsRecent ProgressPatient-Stated?Author Reminders Care PlanOB RemindersNoOpen Scheduling, Backgrounddocumented as of this encounter Procedures Procedure NamePriorityDate/TimeAssociated DiagnosisCommentsUS OB GROWTH 08/20/2023 11:46 AM EST documented in this encounter Results * US OB GROWTH (08/20/2023 11:46 AM EST)Anatomical RegionLateralityModalityOther Specimen (Source)Anatomical Location / LateralityCollection Method / Volume Collection TimeReceived Time08/20/2023 11:46 AM EST Narrative 08/20/2023 11:49 AM EST [facility] ?[address] ? [place] [address] ? Ultrasound Report ? Signed ? Patient: AMY DOMÍNGUEZ L ?MR#: [id number] ?? : 1980 ?Acct:[id number] ?? Age/Sex: 42 / F ?ADM Date: 08/20/23 ?? Loc: [facility] ? Attending Dr: Terese Aguila ? Ordering Physician: Terese Aguila ?? Date of Service: 08/20/23 ?? Procedure(s): US OB growth ?? Accession Number(s): [id number] ? cc: Terese Aguila; Cruz Rajan M.D. ? [facility] ? [facility] [address] ? [place] [address] ? Patient Name: ?? AMY DOMÍNGUEZ ? MRN: [facility]:[id number] ? date: 1980 ?Sex: F ?? Assigned Patient Location: [facility] ?? Current Patient Location: [facility] ?? Accession/Order Number: [id number] ?? Exam Date: 08/20/2023 ??11:06 ?Report Date: 08/20/2023 ??11:46 ? At the request of: ?? TERESE ??MINGO ? Procedure: ??US OB growth ? EXAMINATION: US OB growth ? HISTORY: SGA ? COMPARISON: 07/23/2023 ? FINDINGS: ? Heart Rate: 135.0 bpm ?? Amniotic Fluid Volume: 11.0 cm ?? Number: 1.0 ?? Position: Cephalic presentation, longitudinal lie ?? Maximum Vertical Pocket: ?? 0.0 cm cm ?? 5.3 cm cm ?? 3.3 cm cm ?? 2.4 cm cm ? BIOMETRY: ?? BPD: 8.4 cm cm; 33 weeks 6 days; 8% ?? HC: 30.9 cmcm; 34 weeks 4 days , 3% ?? AC: 30.2 cm cm; 34 weeks 1 days, 12% ?? FL: 6.7 cm cm; 34 weeks 5 days; 14.7 % % ?? EFW: 2393.9 grams, 5 lbs. 4 oz., 12% ?? FL/AC: 22.4 ?? FL/BPD: 80.1 ?? HC/AC: 1.0 ? GESTATIONAL AGE: ?? Age by EDC: 36 weeks 0 days ?? JALIL by EDC: 09/17/2023 ?? Age by US: 34 weeks 0 days ?? JALIL by US: 10/01/2023 ? US/US OB growth ?? IMPRESSION: ? Head circumference at the 3rd percentile ? Estimated weight at the 12th percentile ? Electronically authenticated by: RIMMA ??MEDARDO ?? Date: 08/20/2023 ??11:46 ? Dictated By: ?Rimma Batres M.D. ? Signed By: ?08/20/23 1149 ? DD/ 1146 ? TD/TT: ? Hand Mixer: Procedure Note Radiology, Radiologist, MD - 08/26/2023 The [place] [id number] Ultrasound Report Signed Patient: AMY DOMÍNGUEZ LMR#: [id number] : 1980Acct:[id number] Age/Sex: 42 / FADM Date: 08/20/23 Loc: [facility] Attending Dr: Terese Aguila Ordering Physician: Terese Aguila Date of Service: 08/20/23 Procedure(s): [facility] Accession Number(s): [id number] cc: Terese Aguila; Cruz Rajan M.D. The [address] [address] Patient Name: AMY DOMÍNGUEZ MRN: [facility]:[id number] date: 1980 Sex: F Assigned Patient Location: [facility] Current Patient Location: [facility] Accession/Order Number: [id number] Exam Date: 08/20/2023 11:06 Report Date: 08/20/2023 11:46 At the request of: TERESE AGUILA Procedure: US OB growth EXAMINATION: US OB growth HISTORY: SGA COMPARISON: 07/23/2023 FINDINGS: Heart Rate: 135.0 bpm Amniotic Fluid Volume: 11.0 cm Number: 1.0 Position: Cephalic presentation, longitudinal lie Maximum Vertical Pocket: 0.0 cm cm 5.3 cm cm 3.3 cm cm 2.4 cm cm BIOMETRY: BPD: 8.4 cm cm; 33 weeks 6 days; 8% HC: 30.9 cmcm; 34 weeks 4 days , 3% AC: 30.2 cm cm; 34 weeks 1 days, 12% FL: 6.7 cm cm; 34 weeks 5 days; 14.7 % % EFW: 2393.9 grams, 5 lbs. 4 oz., 12% FL/AC: 22.4 FL/BPD: 80.1 HC/AC: 1.0 GESTATIONAL AGE: Age by EDC: 36 weeks 0 days JALIL by EDC: 09/17/2023 Age by US: 34 weeks 0 days JALIL by US: 10/01/2023 US/US OB growth IMPRESSION: Head circumference at the 3rd percentile Estimated weight at the 12th percentile Electronically authenticated by: RIMMA BATRES Date: 08/20/2023 11:46 Dictated By: Rimma Batres M.D. Signed By:08/20/23 1149 DD/ 1146 TD/TT: Hand Mixer: Authorizing ProviderResult TypeResult StatusTerese Aguila PACLINISYNC IMAGINGFinal Result documented in this encounter Visit Diagnoses Not on filedocumented in this encounter Additional Health Concerns Active ProblemsNoted DateDiagnosed DateOB Xzcaqupef11/01/2023 documented as of this encounter Care Teams Team MemberRelationshipSpecialtyStart DateEnd Date Cruz Rajan MD [address] [place] [address] [facility] - [facility]02/16/23documented as of this encounter
--- OUTSIDE RECORDS SUMMARY | 2025-04-24 10:48 | XMS_ITS | Encounter Summary ---
Author Organization [facility] Address [address] [place] [address] Care Team Providers Care Telephone Maintenance Mechanic Name Role Phone Cruz Rajan MD Primary Care Provider [phone] Encounter Details DateTypeDepartmentCare Team (Latest Contact Info)Liqsapndvxx56/01/2024Clinisync Result Encounter [facility] External Department Unsolicited Ivan Abad, DO [address] [place] [address] Social History Tobacco UseTypesPacks/DayYears UsedDateSmoking Tobacco: NeverSmokeless Tobacco: NeverAlcohol UseStandard Drinks/WeekCommentsNot Currently0 (1 standard drink = 0.6 oz pure alcohol)occasional alcohol use, Caffeine intake: none CommentsYesSex and Gender InformationValueDate RecordedSex Assigned at Gscltp5301/21/2023 8:01 PM EDTLegal QpyVzwvae64/15/2023 6:58 PM EDTGender Identity Fxfccj9301/21/2023 8:01 PM EDTSexual BomrkkchjqmBwyrbztg27/02/2023 8:01 PM EDT documented as of this encounter Plan of Treatment DateTypeDepartmentCare Team (Latest Contact Info)Qftghefndmy18/10/2025 10:00 AM ESTOffice Visit [facility] [address] [facility] [place] [phone] Ivan Abad, DO [address] [place] [address] documented as of this encounter Goals GoalPatient Goal TypeAssociated ProblemsRecent ProgressPatient-Stated?Author Reminders Care PlanOB RemindersNoOpen Scheduling, Backgrounddocumented as of this encounter Procedures Procedure NamePriorityDate/TimeAssociated DiagnosisCommentsUS OB BPP W NON-YGLMOX1208/21/2023 9:07 AM EST documented in this encounter Results * US OB BPP W NON-STRESS (08/21/2023 9:07 AM EST)Anatomical Region LateralityModalityOtherSpecimen (Source)Anatomical Location / Laterality Collection Method / VolumeCollection TimeReceived Time08/21/2023 9:07 AM EST Narrative 08/21/2023 9:10 AM EST [facility] ?[address] ? [place] [address] ? Ultrasound Report ? Signed ? Patient: AMY ALFARO ?MR#: [id number] ?? : 1980 ?Acct:[id number] ?? Age/Sex: 42 / F ?ADM Date: 08/21/23 ?? Loc: [facility] ??250-1 ? Attending Dr: Ivan Abad D.O. ? Ordering Physician: Ivan Abad D.O. ?? Date of Service: 08/21/23 ?? Procedure(s): US OB BPP w non-stress ?? Accession Number(s): [id number] ? cc: Ivan Abad D.O.; Cruz Rajan M.D. ? [facility] ? [address] ? [place] [address] ? Patient Name: ?? AMY ALFARO ? MRN: [facility]:[id number] ? date: 1980 ?Sex: F ?? Assigned Patient Location: FBC ?? Current Patient Location: [facility]BC ?? Accession/Order Number: [id number] ?? Exam Date: 08/21/2023 ??08:42 ?Report Date: 08/21/2023 ??09:07 ? At the request of: ?? IVAN ??POLLO ? Procedure: ??US OB BPP w non-stress ? EXAMINATION: US OB BPP w non-stress ? HISTORY: variables with NST ? COMPARISON: No relevant comparison available. ? TECHNIQUE: Ultrasound biophysical profile was performed in the radiology ?? department. ? FINDINGS: ?? BREATHING MOVEMENTS: 2.0 ?? GROSS BODY MOVEMENTS: 2.0 ?? TONE: 2.0 ?? QUALITATIVE AMNIOTIC FLUID VOLUME: 2.0 ? PRESENTATION: CEPHALIC ?? HEART RATE: 143.6 bpm H.B./min ?? AMNIOTIC FLUID VOLUME: 10.5 cm cm ?? GESTATIONAL AGE: 36 weeks 1 days ? CONCLUSION: ? Total biophysical profile score: 8.0 ? Electronically authenticated by: RIMMA ??MEDARDO ?? Date: 08/21/2023 ??09:07 ? Dictated By: ?Rimma Batres M.D. ? Signed By: ?08/21/23 0910 ? DD/ 0907 ? TD/TT: ? Stereoplotter Operator: Procedure Note Radiology, Radiologist, MD - 08/26/2023 [place] [address] Ultrasound Report Signed Patient: AMY ALFARO LMR#: [id number] : 1980Acct:[id number] Age/Sex: 42 / FADM Date: 08/21/23 Loc: [facility] 250-[address]: Ivan Abad D.O. Ordering Physician: Ivan Abad D.O. Date of Service: 08/21/23 Procedure(s): US OB BPP w non-stress Accession Number(s): [id number] cc: Ivan Abad D.O.; Cruz Rajan M.D. The [place] [address] Patient Name: AMY ALFARO MRN: [id number] date: 1980 Sex: F Assigned Patient Location: [facility] Current Patient Location: [facility] Accession/Order Number: [id number] Exam Date: 08/21/2023 08:42 Report Date: 08/21/2023 09:07 At the request of: IVAN ABAD Procedure: US OB BPP w non-stress EXAMINATION: US OB BPP w non-stress HISTORY: variables with NST COMPARISON: No relevant comparison available. TECHNIQUE: Ultrasound biophysical profile was performed in the radiology department. FINDINGS: BREATHING MOVEMENTS: 2.0 GROSS BODY MOVEMENTS: 2.0 TONE: 2.0 QUALITATIVE AMNIOTIC FLUID VOLUME: 2.0 PRESENTATION: CEPHALIC HEART RATE: 143.6 bpm H.B./min AMNIOTIC FLUID VOLUME: 10.5 cm cm GESTATIONAL AGE: 36 weeks 1 days CONCLUSION: Total biophysical profile score: 8.0 Electronically authenticated by: RIMMA BATRES Date: 08/21/2023 09:07 Dictated By: Rimma Batres M.D. Signed By:08/21/23909 DD/ 6 TD/TT: Stereoplotter Operator: Authorizing ProviderResult TypeResult StatusCorey Pollo DOCLINISYNC IMAGINGFinal Result documented in this encounter Visit Diagnoses Not on filedocumented in this encounter Additional Health Concerns Active ProblemsNoted DateDiagnosed DateOB Srreqqotv18/01/2023 documented as of this encounter Care Teams Team MemberRelationshipSpecialtyStart DateEnd Date Cruz Rajan MD [address] [place] [address] [facility] - [facility]02/16/23documented as of this encounter
--- OUTSIDE RECORDS SUMMARY | 2025-04-24 10:48 | XMS_ITS | Encounter Summary ---
Author Organization [facility] Address [address] [place] [address] Care Team Providers Care Legal Compliance Officer Name Role Phone Cruz Rajan MD Primary Care Provider [phone] Encounter Details DateTypeDepartmentCare Team (Latest Contact Info)Bghgyfgrnzm04/03/2024Clinisync Result Encounter [facility]S External Department Unsolicited Terese Aguila, ERIC [address] [facility] [place] [address] Social History Tobacco UseTypesPacks/DayYears UsedDateSmoking Tobacco: NeverSmokeless Tobacco: NeverAlcohol UseStandard Drinks/WeekCommentsNot Currently0 (1 standard drink = 0.6 oz pure alcohol)occasional alcohol use, Caffeine intake: none CommentsYesSex and Gender InformationValueDate RecordedSex Assigned at Clhlyj2901/21/2023 8:01 PM EDTLegal YypWftlul90/15/2023 6:58 PM EDTGender Identity Abruoa9701/21/2023 8:01 PM EDTSexual NkexeivqambAciajnsv40/02/2023 8:01 PM EDT documented as of this encounter Plan of Treatment DateTypeDepartmentCare Team (Latest Contact Info)Ddbgrkpuluc82/10/2025 10:00 AM ESTOffice Visit [facility] Korey SPENCER [address] [facility] [place] [address] Camron Abad DO [address] [facility] [place] [address] documented as of this encounter Goals GoalPatient Goal TypeAssociated ProblemsRecent ProgressPatient-Stated?Author Reminders Care PlanOB RemindersNoOpen Scheduling, Backgrounddocumented as of this encounter Procedures Procedure NamePriorityDate/TimeAssociated DiagnosisCommentsUS OB GROWTH 06/24/2023 9:57 AM EST documented in this encounter Results * US OB GROWTH (06/24/2023 9:57 AM EST)Anatomical RegionLateralityModalityOther Specimen (Source)Anatomical Location / LateralityCollection Method / Volume Collection TimeReceived Time06/24/2023 9:57 AM EST Narrative 06/24/2023 10:00 AM EST [facility] ?[address] ? [place] [address] ? Ultrasound Report ? Signed ? Patient: AMY DOMÍNGUEZ L ?MR#: [id number] ?? : 1980 ?Acct:[id number] ?? Age/Sex: 42 / F ?ADM Date: 06/24/23 ?? Loc: US ? Attending Dr: Terese Aguila ? Ordering Physician: Terese Aguila ?? Date of Service: 06/24/23 ?? Procedure(s): US OB growth ?? Accession Number(s): [id number] ? cc: Terese Aguila; Cruz Rajan M.D. ? [facility] ? [facility]. [facility] ? [place] [address] ? Patient Name: ?? AMY DOMÍNGUEZ ? MRN: [facility]:[id number] ? date: 1980 ?Sex: F ?? Assigned Patient Location: US ?? Current Patient Location: US ?? Accession/Order Number: [id number] ?? Exam Date: 06/24/2023 ??09:11 ?Report Date: 06/24/2023 ??09:57 ? At the request of: ?? TERESE ??MINGO ? Procedure: ??US OB growth ? EXAMINATION: US OB growth ? HISTORY: SGA ? COMPARISON: 02/20/2023 ? FINDINGS: ? Heart Rate: 131.0 bpm ?? Amniotic Fluid Volume: 15.4 cm ?? Number: 1.0 ?? Position: Cephalic presentation, longitudinal lie ?? Maximum Vertical Pocket: ?? 3.8 cm cm ?? 4.9 cm cm ?? 3.4 cm cm ?? 3.4 cm cm ? BIOMETRY: ?? BPD: 6.8 cm cm; 27 weeks 2 days; 20% ?? HC: 25.7 cmcm; 27 weeks 6 days , 22% ?? AC: 22.7 cm cm; 27 weeks 1 days, 21% ?? FL: 5.4 cm cm; 28 weeks 5 days; 62.2 % % ?? EFW: 1122.9 grams, 2 lbs. 8 oz., 33% ?? FL/AC: 24.0 ?? FL/BPD: 80.4 ?? HC/AC: 1.1 ? GESTATIONAL AGE: ?? Age by EDC: 27 weeks 6 days ?? JALIL by EDC: 09/17/2023 ?? Age by US: 27 weeks 5 days ?? JALIL by US: 09/18/2023 ? US/US OB growth ?? IMPRESSION: ? Normal interval growth ? Electronically authenticated by: RIMMA ??MEDARDO ?? Date: 06/24/2023 ??09:57 ? Dictated By: ?Rimma Batres M.D. ? Signed By: ?06/24/23999 ? DD/ 0957 ? TD/TT: ? Food Vendor: Procedure Note Radiology, Radiologist, MD - 06/24/2023 [place] [address] Ultrasound Report Signed Patient: AMY DOMÍNGUEZ LMR#: [id number] : 1980Acct:[id number] Age/Sex: 42 / FADM Date: 06/24/23 Loc: US Attending Dr: Terese Aguila Ordering Physician: Terese Aguila Date of Service: 06/24/23 Procedure(s): US OB growth Accession Number(s): [id number] cc: Terese Aguila; Cruz Rajan M.D. The [address] [address] Patient Name: AMY DOMÍNGUEZ MRN: [id number] date: 1980 Sex: F Assigned Patient Location: US Current Patient Location: US Accession/Order Number: [id number] Exam Date: 06/24/2023 09:11 Report Date: 06/24/2023 09:57 At the request of: TERESE AGUILA Procedure: US OB growth EXAMINATION: US OB growth HISTORY: SGA COMPARISON: 02/20/2023 FINDINGS: Heart Rate: 131.0 bpm Amniotic Fluid Volume: 15.4 cm Number: 1.0 Position: Cephalic presentation, longitudinal lie Maximum Vertical Pocket: 3.8 cm cm 4.9 cm cm 3.4 cm cm 3.4 cm cm BIOMETRY: BPD: 6.8 cm cm; 27 weeks 2 days; 20% HC: 25.7 cmcm; 27 weeks 6 days , 22% AC: 22.7 cm cm; 27 weeks 1 days, 21% FL: 5.4 cm cm; 28 weeks 5 days; 62.2 % % EFW: 1122.9 grams, 2 lbs. 8 oz., 33% FL/AC: 24.0 FL/BPD: 80.4 HC/AC: 1.1 GESTATIONAL AGE: Age by EDC: 27 weeks 6 days JALIL by EDC: 09/17/2023 Age by US: 27 weeks 5 days JALIL by US: 09/18/2023 US/US OB growth IMPRESSION: Normal interval growth Electronically authenticated by: RIMMA BATRES Date: 06/24/2023 09:57 Dictated By: Rimma Batres M.D. Signed By:06/24/23 1000 DD/ 0957 TD/TT: Food Vendor: Authorizing ProviderResult TypeResult StatusA[facility] IMAGINGFinal Result documented in this encounter Visit Diagnoses Not on filedocumented in this encounter Additional Health Concerns Active ProblemsNoted DateDiagnosed DateOB Hshygfrdm92/01/2023 documented as of this encounter Care Teams Team MemberRelationshipSpecialtyStart DateEnd Date Cruz Rajan MD [address] [place] [address] PCP - [facility]02/16/23documented as of this encounter
--- OUTSIDE RECORDS SUMMARY | 2025-04-24 10:48 | XMS_ITS | Encounter Summary ---
Author Organization [facility] Address [address] [place] [address] Care Team Providers Care Belt Puncher Name Role Phone Cruz Rajan MD Primary Care Provider [phone] Encounter Details DateTypeDepartmentCare Team (Latest Contact Info)Ehpabzfbxow57/05/2024Clinisync Result Encounter [facility] External Department Unsolicited Ivan Abad, DO [address] [place] [address] Social History Tobacco UseTypesPacks/DayYears UsedDateSmoking Tobacco: NeverSmokeless Tobacco: NeverAlcohol UseStandard Drinks/WeekCommentsNot Currently0 (1 standard drink = 0.6 oz pure alcohol)occasional alcohol use, Caffeine intake: none CommentsYesSex and Gender InformationValueDate RecordedSex Assigned at Vxnxal4601/21/2023 8:01 PM EDTLegal RrcDkeoze95/15/2023 6:58 PM EDTGender Identity Tqgkzm2601/21/2023 8:01 PM EDTSexual EhwalaovdzkWayemanv84/02/2023 8:01 PM EDT documented as of this encounter Plan of Treatment DateTypeDepartmentCare Team (Latest Contact Info)Ccbkrpmmqrn96/10/2025 10:00 AM ESTOffice Visit [facility] [address] [place] [phone] Ivan Abad, DO [address] [place] [address] documented as of this encounter Goals GoalPatient Goal TypeAssociated ProblemsRecent ProgressPatient-Stated?Author Reminders Care PlanOB RemindersNoOpen Scheduling, Backgrounddocumented as of this encounter Procedures Procedure NamePriorityDate/TimeAssociated DiagnosisCommentsUS OB BPP W NON-FBEATS2608/25/2023 8:57 AM EST documented in this encounter Results * US OB BPP W NON-STRESS (08/25/2023 8:57 AM EST)Anatomical Region LateralityModalityOtherSpecimen (Source)Anatomical Location / Laterality Collection Method / VolumeCollection TimeReceived Time08/25/2023 8:57 AM EST Narrative 08/25/2023 9:00 AM EST [facility] ?[address] ? [place] [address] ? Ultrasound Report ? Signed ? Patient: AMY ALFARO ?MR#: [id number] ?? : 1980 ?Acct:[id number] ?? Age/Sex: 42 / F ?ADM Date: 08/25/23 ?? Loc: US ? Attending Dr: Ivan Abad D.O. ? Ordering Physician: Ivan Abad D.O. ?? Date of Service: 08/25/23 ?? Procedure(s): US OB BPP w non-stress ?? Accession Number(s): [id number] ? cc: Ivan Abad D.O.; Cruz Rajan M.D. ? [facility] ? [address] ? [place] [address] ? Patient Name: ?? AMY LIMNER ? MRN: [facility]:[id number] ? date: 1980 ?Sex: F ?? Assigned Patient Location: FBC ?? Current Patient Location: ? Accession/Order Number: [id number] ?? Exam Date: 08/25/2023 ??08:02 ?Report Date: 08/25/2023 ??08:57 ? At the request of: ?? IVAN ??POLLO ? Procedure: ??US OB BPP w non-stress ? EXAMINATION: US OB BPP w non-stress ? HISTORY: Small for gestatinal age P05.10 ? COMPARISON: No relevant comparison available. ? TECHNIQUE: Ultrasound biophysical profile was performed in the radiology ?? department. ? FINDINGS: ?? BREATHING MOVEMENTS: 2.0 ?? GROSS BODY MOVEMENTS: 2.0 ?? TONE: 2.0 ?? QUALITATIVE AMNIOTIC FLUID VOLUME: 2.0 ? PRESENTATION: CEPHALIC ?? HEART RATE: 137.1 bpm H.B./min ?? AMNIOTIC FLUID VOLUME: 10.7 cm cm ?? GESTATIONAL AGE: 36 weeks 5 days ? CONCLUSION: ? Total biophysical profile score: 8.0 ? Electronically authenticated by: RIMMA ??MEDARDO ?? Date: 08/25/2023 ??08:57 ? Dictated By: ?Rimma Batres M.D. ? Signed By: ?03/05/24 0900 ? DD/ 0857 ? TD/TT: ? Bicycle Assembler: Procedure Note Radiology, Radiologist, MD - 08/25/2023 [place] [address] Ultrasound Report Signed Patient: AMY ALFARO LMR#: [id number] : 1980Acct:[id number] Age/Sex: 42 / FADM Date: 08/25/23 Loc: US Attending Dr: Ivan Abad D.O. Ordering Physician: Ivan Abad D.O. Date of Service: 08/25/23 Procedure(s): US OB BPP w non-stress Accession Number(s): [id number] cc: Ivan Abad D.O.; Cruz Rajan M.D. The [place] [id number] Patient Name: AMY ALFARO MRN: [facility]:[id number] date: 1980 Sex: F Assigned Patient Location: [facility] Current Patient Location: Accession/Order Number: [id number] Exam Date: 08/25/2023 08:02 Report Date: 08/25/2023 08:57 At the request of: IVAN ABAD Procedure: US OB BPP w non-stress EXAMINATION: US OB BPP w non-stress HISTORY: Small for gestatinal age P05.10 COMPARISON: No relevant comparison available. TECHNIQUE: Ultrasound biophysical profile was performed in the radiology department. FINDINGS: BREATHING MOVEMENTS: 2.0 GROSS BODY MOVEMENTS: 2.0 TONE: 2.0 QUALITATIVE AMNIOTIC FLUID VOLUME: 2.0 PRESENTATION: CEPHALIC HEART RATE: 137.1 bpm H.B./min AMNIOTIC FLUID VOLUME: 10.7 cm cm GESTATIONAL AGE: 36 weeks 5 days CONCLUSION: Total biophysical profile score: 8.0 Electronically authenticated by: RIMMA BATRES Date: 08/25/2023 08:57 Dictated By: Rimma Batres M.D. Signed By:08/25/23899 DD/ 6 TD/TT: Bicycle Assembler: Authorizing ProviderResult TypeResult StatusCorey Pollo DOCLINISYNC IMAGINGFinal Result documented in this encounter Visit Diagnoses Not on filedocumented in this encounter Additional Health Concerns Active ProblemsNoted DateDiagnosed DateOB Asywqkweo16/01/2023 documented as of this encounter Care Teams Team MemberRelationshipSpecialtyStart DateEnd Date Cruz Rajan MD [address] [place] [address] [facility]02/16/23documented as of this encounter
--- OUTSIDE RECORDS SUMMARY | 2025-04-24 10:48 | XMS_ITS | Encounter Summary ---
Author Organization [facility] Address [address] [place] [address] Care Team Providers Care Staff Development Coordinator Name Role Phone Cruz Rajan MD Primary Care Provider [phone] Encounter Details DateTypeDepartmentCare Team (Latest Contact Info)Nwjyjwdomeg17/01/2024linisync Result Encounter [facility] External Department Unsolicited Ivan Abad, DO [address] [place] [address] Social History Tobacco UseTypesPacks/DayYears UsedDateSmoking Tobacco: NeverSmokeless Tobacco: NeverAlcohol UseStandard Drinks/WeekCommentsNot Currently0 (1 standard drink = 0.6 oz pure alcohol)occasional alcohol use, Caffeine intake: none CommentsYesSex and Gender InformationValueDate RecordedSex Assigned at Rlimaz4201/21/2023 8:01 PM EDTLegal PzlPbecoc98/15/2023 6:58 PM EDTGender Identity Bpemfs8801/21/2023 8:01 PM EDTSexual QywwloybhxeAldfcvqn72/02/2023 8:01 PM EDT documented as of this encounter Plan of Treatment DateTypeDepartmentCare Team (Latest Contact Info)Iouuzneeggc12/10/2025 10:00 AM ESTOffice Visit [facility] [address] [place] [phone] Ivan Abad, DO [address] [place] [address] documented as of this encounter Goals GoalPatient Goal TypeAssociated ProblemsRecent ProgressPatient-Stated?Author Reminders Care PlanOB RemindersNoOpen Scheduling, Backgrounddocumented as of this encounter Procedures Procedure NamePriorityDate/TimeAssociated DiagnosisCommentsUS OB GROWTH 07/23/2023 3:58 PM EST documented in this encounter Results * US OB GROWTH (07/23/2023 3:58 PM EST)Anatomical RegionLateralityModalityOther Specimen (Source)Anatomical Location / LateralityCollection Method / Volume Collection TimeReceived Time07/23/2023 3:58 PM EST Narrative 07/23/2023 4:01 PM EST [facility] ?[address] ? [place] [address] ? Ultrasound Report ? Signed ? Patient: AMY ALFARO L ?MR#: [id number] ?? : 1980 ?Acct:[id number] ?? Age/Sex: 42 / F ?ADM Date: 07/23/23 ?? Loc: [facility] ? Attending Dr: Ivan Abad D.O. ? Ordering Physician: Ivan Abad D.O. ?? Date of Service: 07/23/23 ?? Procedure(s): US OB growth ?? Accession Number(s): [id number] ? cc: Ivan Abad D.O.; Cruz Rajan M.D. ? [facility] ? [address] [place] [address] ? [place] [address] ? Patient Name: ?? AMY ALFARO ? MRN: [facility]:[id number] ? date: 1980 ?Sex: F ?? Assigned Patient Location: [facility] ?? Current Patient Location: [facility] ?? Accession/Order Number: [id number] ?? Exam Date: 07/23/2023 ??15:00 ?Report Date: 07/23/2023 ??15:58 ? At the request of: ?? IVAN ??SACHI ? Procedure: ??US OB growth ? EXAMINATION: US OB growth ? HISTORY: SGA ? COMPARISON: Ultrasound OB growth 06/24/2023 ? FINDINGS: ? Heart Rate: 158.0 bpm ?? Number: 1.0 ?? Position: BREECH ?? Amniotic Fluid Volume: 11.0 cm ?? Maximum Vertical Pocket: 3.8 cm ? BIOMETRY: ?? BPD: 7.8 cm cm; 31 weeks 2 days ?? HC: 29.4 cmcm; 32 weeks 3 days ?? AC: 27.9 cm cm; 32 weeks 0 days ?? FL: 6.3 cm cm; 32 weeks 3 days ?? EFW: 1903.5 grams; 42% ?? FL/AC: 22.5 ?? FL/BPD: 80.6 ?? HC/AC: 1.1 ? GESTATIONAL AGE: ?? Age by EDC: 32 weeks 0 days ?? JALIL by EDC: 09/09/2023 ?? Age by US: 32 weeks 0 days ?? JALIL by US: 09/17/2023 ? US/US OB growth ?? IMPRESSION: ? 1. Single live intrauterine with growth detailed above. ? Electronically authenticated by: TOMAS ??SARINA ?? Date: 07/23/2023 ??15:58 ? Dictated By: ?Tomas Hurst M.D. ? Signed By: ?07/23/23 1601 ? DD/ 1558 ? TD/TT: ? Human Resources Recruiter: Procedure Note Radiology, Radiologist, MD - 08/26/2023 [place] [address] Ultrasound Report Signed Patient: AMY ALFARO LMR#: [id number] : 1980Acct:[id number] Age/Sex: 42 / FADM Date: 07/23/23 Loc: [facility] Attending Dr: Ivan Abad D.O. Ordering Physician: Ivan Abad D.O. Date of Service: 07/23/23 Procedure(s): [facility] Accession Number(s): [id number] cc: Ivan Abad D.O.; Cruz Rajan M.D. The [address] [address] Patient Name: AMY ALFARO MRN: [facility]:[id number] date: 1980 Sex: F Assigned Patient Location: [facility] Current Patient Location: [facility] Accession/Order Number: [id number] Exam Date: 07/23/2023 15:00 Report Date: 07/23/2023 15:58 At the request of: IVAN ABAD Procedure: US OB growth EXAMINATION: US OB growth HISTORY: SGA COMPARISON: Ultrasound OB growth 06/24/2023 FINDINGS: Heart Rate: 158.0 bpm Number: 1.0 Position: BREECH Amniotic Fluid Volume: 11.0 cm Maximum Vertical Pocket: 3.8 cm BIOMETRY: BPD: 7.8 cm cm; 31 weeks 2 days HC: 29.4 cmcm; 32 weeks 3 days AC: 27.9 cm cm; 32 weeks 0 days FL: 6.3 cm cm; 32 weeks 3 days EFW: 1903.5 grams; 42% FL/AC: 22.5 FL/BPD: 80.6 HC/AC: 1.1 GESTATIONAL AGE: Age by EDC: 32 weeks 0 days JALIL by EDC: 09/09/2023 Age by US: 32 weeks 0 days JALIL by US: 09/17/2023 US/US OB growth IMPRESSION: 1. Single live intrauterine with growth detailed above. Electronically authenticated by: TOMAS HURST Date: 07/23/2023 15:58 Dictated By: Tomas Hurst M.D. Signed By:07/23/23 1601 DD/ 1558 TD/TT: Human Resources Recruiter: Authorizing ProviderResult TypeResult StatusCoresalo Abad DOCLINISYNC IMAGINGFinal Result documented in this encounter Visit Diagnoses Not on filedocumented in this encounter Additional Health Concerns Active ProblemsNoted DateDiagnosed DateOB Lonsqrzwo49/01/2023 documented as of this encounter Care Teams Team MemberRelationshipSpecialtyStart DateEnd Date Cruz Rajan MD [address] [place] [address] [facility]02/16/23documented as of this encounter
--- OUTSIDE RECORDS SUMMARY | 2025-04-24 10:48 | XMS_ITS | Encounter Summary ---
Author Organization [facility] Address [address] [place] [address] Care Team Providers Care Truck Packer Name Role Phone Cruz Rajan MD Primary Care Provider [phone] Encounter Details DateTypeDepartmentCare Team (Latest Contact Info)Sozmizhzirh60/19/2024Clinisync Result Encounter [facility] External Department Unsolicited Ivan Abad, DO [address] [place] [address] Social History Tobacco UseTypesPacks/DayYears UsedDateSmoking Tobacco: NeverSmokeless Tobacco: NeverAlcohol UseStandard Drinks/WeekCommentsNot Currently0 (1 standard drink = 0.6 oz pure alcohol)occasional alcohol use, Caffeine intake: none CommentsYesSex and Gender InformationValueDate RecordedSex Assigned at Tikmen5901/21/2023 8:01 PM EDTLegal DleGjerdu30/15/2023 6:58 PM EDTGender Identity Xixrmk3901/21/2023 8:01 PM EDTSexual LchlqqozcqeEvfuvolf39/02/2023 8:01 PM EDT documented as of this encounter Plan of Treatment DateTypeDepartmentCare Team (Latest Contact Info)Jiqcezrjsaq67/10/2025 10:00 AM ESTOffice Visit [facility] [address] [facility] [place] [phone] Ivan Abad, DO [address] [place] [address] documented as of this encounter Goals GoalPatient Goal TypeAssociated ProblemsRecent ProgressPatient-Stated?Author Reminders Care PlanOB RemindersNoOpen Scheduling, Backgrounddocumented as of this encounter Procedures Procedure NamePriorityDate/TimeAssociated DiagnosisCommentsTBH DRUG SCREEN RAPID (URINE)Ikcpvwx3009/08/2023 10:45 AM EDT [facility] CBC WITH PLATELET NO HINPMVRRVYXYOaxozkx38/19/2024 10:45 AM EDT US OB BPP W NON-TPGZFF0409/08/2023 9:57 AM EDT documented in this encounter Results * [facility] DRUG SCREEN RAPID (URINE) (09/08/2023 10:45 AM EDT)ComponentValueRef Range Test MethodAnalysis TimePerformed AtPathologist SignatureCANNABINOID SCREEN URINENEGATIVENEGATIVETBHPHENCYCLIDINE SCREEN URINENEGATIVENEGATIVETBHCOCAINE SCREEN URINENEGATIVENEGATIVETBHMETHAMPHETAMINES SCREEN URINENEGATIVENEGATIVE TBHOPIATE SCREEN URINENEGATIVENEGATIVETBHAMPHETAMINE SCREEN URINENEGATIVE NEGATIVETBHBENZODIAZEPINES SCREEN URINENEGATIVENEGATIVETBHTRICYCLIC ANTIDEPRESSANT URINENEGATIVENEGATIVETBHMETHADONE SCREEN URINENEGATIVENEGATIVE TBHBARBITURATES SCREEN URINENEGATIVENEGATIVETBHOXYCODONE SCREEN URINENEGATIVE NEGATIVETBHBUPRENORPHINE SCREEN URINENEGATIVENEGATIVETBHComment: DRUG CLASS TEST SYSTEM CUT-OFF CONCENTRATIONS ARE FOLLOWS: AMP (Amphetamine): 500 ng/mL BAR (Barbiturates): 200 ng/mL BZO (Benzodiazepines): 150 ng/mL BUP (Buprenorphine): 10 ng/mL PIERRE (Cocaine): 150 ng/mL mAMP (Methamphetamine): 500 ng/mL MTD (Methadone): 200 ng/mL OPI (Opiates): 100 ng/mL OXY (Oxycodone): 100 ng/mL PCP (Phencyclidine): 25 ng/mL THC (Cannabinoids): 50 ng/mL TCA (Trycyclic Antidepressants): 300 ng/mL Specimen (Source)Anatomical Location / LateralityCollection Method / Volume Collection TimeReceived Time09/08/2023 10:45 AM EDT09/08/2023 11:24 AM EDT Narrative [facility] - 09/08/2023 12:10 PM EDT Authorizing ProviderResult TypeResult StatusCorey Pollo DOCLINISYNCFinal Result Performing OrganizationAddressCity/State/ZIP CodePhone Number MIKALISYNC [facility] * (ABNORMAL) [facility] CBC WITH PLATELET NO DIFFERENTIAL (09/08/2023 10:45 AM EDT) ComponentValueRef RangeTest MethodAnalysis TimePerformed AtPathologist SignatureTBH WBC7.74.0 - 11.0 10 3/uLTBHTBH RBC3.86(L)4.20 - 5.40 10 6/uLTBH TBH HGB11.8(L)12.0 - 16.0 g/dLTBHTBH HCT35.9(L)36.0 - 48.0 %TBHTBH MCV93.081.0 - 99.0 fLTBHTBH MCH30.626.7 - 34.0 pgTBHTBH MCHC32.929.9 - 35.2 g/dLTBHTBH RDW 14.711.0 - 15.0 %TBHTBH SEL517961 - 450 10 3/uLTBHTBH MPV11.69.5 - 13.5 fLTBH Specimen (Source)Anatomical Location / LateralityCollection Method / Volume Collection TimeReceived Time09/08/2023 10:45 AM EDT09/08/2023 11:24 AM EDT Narrative [facility] - 09/08/2023 12:01 PM EDT Authorizing ProviderResult TypeResult StatusCorey Pollo DOCLINISYNCFinal Result Performing OrganizationAddressCity/State/ZIP CodePhone Number SELENANC [facility] * OB BPP W NON-STRESS (09/08/2023 9:57 AM EDT)Anatomical Region LateralityModalityOtherSpecimen (Source)Anatomical Location / Laterality Collection Method / VolumeCollection TimeReceived Time09/08/2023 9:57 AM EDT Narrative 09/08/2023 9:59 AM EDT [facility] ?[address] ? [place] [address] ? Ultrasound Report ? Signed ? Patient: AMY ALFARO ?MR#: [id number] ?? : 1980 ?Acct:[id number] ?? Age/Sex: 42 / F ?ADM Date: /19/24 ?? Loc: FBC ??250-1 ? Attending Dr: Ivan Abad D.O. ? Ordering Physician: Ivan Abad D.O. ?? Date of Service: 09/08/23 ?? Procedure(s): US OB BPP w non-stress ?? Accession Number(s): [id number] ? cc: Ivan Abad D.O.; Cruz Rajan M.D. ? [facility] ? [address] ? [place] [address] ? Patient Name: ?? AMY ALFARO ? MRN: [facility]:[id number] ? date: 1980 ?Sex: F ?? Assigned Patient Location: FBC ?? Current Patient Location: [facility] ?? Accession/Order Number: [id number] ?? Exam Date: 09/08/2023 ??08:06 ?Report Date: 09/08/2023 ??09:57 ? At the request of: ?? IVAN ??POLLO ? Procedure: ??US OB BPP w non-stress ? EXAMINATION: US OB BPP w non-stress ? HISTORY: Small for gestational age P05.10 ? COMPARISON: No relevant comparison available. ? TECHNIQUE: Ultrasound biophysical profile was performed in the radiology ?? department. non-reactive stress testing was performed by nursing staff ?? in ?? the birthing center. ? FINDINGS: ?? BREATHING MOVEMENTS: 2.0 ?? GROSS BODY MOVEMENTS: 2.0 ?? TONE: 2.0 ?? QUALITATIVE AMNIOTIC FLUID VOLUME: 2.0 ? PRESENTATION: CEPHALIC ?? HEART RATE: 136.4 bpm H.B./min ?? AMNIOTIC FLUID VOLUME: 13.9 cm cm ?? GESTATIONAL AGE: 38 weeks 5 days ? CONCLUSION: ? Total biophysical profile score: 8.0 ? Electronically authenticated by: RIMMA ??WEST ?? Date: 09/08/2023 ??09:57 ? Dictated By: ?Rimma Batres M.D. ? Signed By: ?09/08/23 0959 ? DD/ 09 ? TD/TT: ? Any Commodity Sales Deliverer: Procedure Note Radiology, Radiologist, - 09/08/[address] [address] Ultrasound Report Signed Patient: AMY ALFARO LMR#: [id number] : 1980Acct:[id number] Age/Sex: 42 / FADM Date: 09/08/23 Loc: [facility] 250-[address]: Ivan Abad D.O. Ordering Physician: Ivan Abad D.O. Date of Service: 09/08/23 Procedure(s): US OB BPP w non-stress Accession Number(s): [id number] cc: Ivan Abad D.O.; Cruz Rajan M.D. [place] [id number] Patient Name: AMY ALFARO MRN: [facility]:[id number] date: 1980 Sex: F Assigned Patient Location: [facility] Current Patient Location: [facility] Accession/Order Number: [id number] Exam Date: 09/08/2023 08:06 Report Date: 09/08/2023 09:57 At the request of: IVAN ABAD Procedure: US OB BPP w non-stress EXAMINATION: US OB BPP w non-stress HISTORY: Small for gestational age P05.10 COMPARISON: No relevant comparison available. TECHNIQUE: Ultrasound biophysical profile was performed in the radiology department. non-reactive stress testing was performed by nursingstaff in the birthing center. FINDINGS: BREATHING MOVEMENTS: 2.0 GROSS BODY MOVEMENTS: 2.0 TONE: 2.0 QUALITATIVE AMNIOTIC FLUID VOLUME: 2.0 PRESENTATION: CEPHALIC HEART RATE: 136.4 bpm H.B./min AMNIOTIC FLUID VOLUME: 13.9 cm cm GESTATIONAL AGE: 38 weeks 5 days CONCLUSION: Total biophysical profile score: 8.0 Electronically authenticated by: RIMMA BATRES Date: 09/08/2023 09:57 Dictated By: Rimma Btares M.D. Signed By:09/08/2359 DD/ 6 TD/TT: Any Commodity Sales Deliverer: Authorizing ProviderResult TypeResult StatusCorey Pollo DOCLINISYNC IMAGINGFinal Result documented in this encounter Visit Diagnoses Not on filedocumented in this encounter Additional Health Concerns Active ProblemsNoted DateDiagnosed DateOB Ntygltwec38/01/2023 documented as of this encounter Care Teams Team MemberRelationshipSpecialtyStart DateEnd Date Cruz Rajan MD [address] [place] [address] [facility]02/16/23documented as of this encounter
--- OUTSIDE RECORDS SUMMARY | 2025-04-24 10:48 | XMS_ITS | Clinical Summary ---
Author Organization [facility] Address [address] [place] [address] Care Team Providers Care Surveillance Supervisor Name Role Phone Abel Patel DO Primary Care Provider Raven Romo Unavailable Allergies Active AllergyReactionsCriticalityNoted DateCommentsSeasonal AllergiesCough 05/11/2014 Medications MedicationSigDispense QuantityRefillsLast FilledStart DateEnd DateStatus multivitamin (DAILY MULTIPLE) tablet Take 1 tablet by mouth once daily.Active Cetirizine (ZYRTEC) 10 mg cap Take 1 capsule by mouth as needed. Active fluticasone (FLONASE) 50 mcg/actuation nasal spray Indications:Bilateral sensorineural hearing loss,Autoimmune disorder of inner earUse 1 [place] in each nostril as needed. Active DOCUSATE SODIUM (COLACE ORAL) Take 1 tablet by mouth as needed.Active predniSONE (DELTASONE) 10 mg tablet Take by mouth four (4) tabs x3 days; then three (3) tabs x3days; then two (2) tabs x3 days; then one (1) tab a day x3 days 30 tablet 09/02/2017Active Active Problems ProblemNoted DateDiagnosed DateCochlear implant follow-up09/29/2017Sensorineural hearing loss, iukumwlstwnz14/09/2018Sensorineural hearing loss, bilateral 10/15/2016Vertigo of central wiqmds6505/24/2014Peripheral vertigo, unspecified 05/24/2014Left-sided sensorineural hearing loss Immunizations [...] RecordedNational Score (1-100), lower number is lower iasg389607/21/2023State Score (1-10), lower number is lower risk5 07/21/2023ata from: https://www.neighborhoodatlas.[facility].edu/. Last address used for ekbwucuhkdm64 [facility]4CommentsNoSex and Gender InformationValueDate RecordedSex Assigned at DmwztOkkelp33/25/2021 6:25 PM EDTLegal DewFbsrro41/02/2012 8:33 AM ESTGender QimmapuwIptqae25/25/2021 6:25 PM EDTSexual OxajgarwvvvNivnexul82/25/2021 6:25 PM EDT Last Filed Vital Signs Vital SignReadingTime TakenCommentsBlood Wvpglqqj351/7003 1:30 PM EDT Zixmr0396 1:30 PM JHSNkchacbkkix95.6 ??C (97.9 ??F)09/02/2017 1:00 PM EDTRespiratory Abwm045509/02/2017 1:30 PM EDTOxygen Kpnxlgaaji42%09/02/2017 1:30 PM EDTInhaled Oxygen Concentration--Vkhgmy46.3 kg (113 lb)08/13/2017 10:36 AM SQOFqmivm672 cm (5' 3 )08/13/2017 10:36 AM ESTBody Mass Index20.02008/13/2017 10:36 AM EST Plan of Treatment DateTypeDepartmentCare Team (Latest Contact Info)Ttwymkqgjdm35/29/2026 2:00 PM ESTOffice Visit Audiology [address] [facility] [address] [address] [place] [address] Raven Romo, AUD [address] [facility] [address] [place], [place] [address] CI follow up07/20/2025 3:30 PM ESTOffice Visit Otolaryngology [address] [facility] [address] [place] [address] Eliezer Becker PA-C [address] [facility] [address] [address] CI CheckHealth MaintenanceDue DateLast DoneCommentsAnxiety Rqnvwvpxj79/29/1998 Depression Dzyrmxuvt18/29/1998HIV Qojgnazas12/29/1998Hepatitis C Screening 11/17/1997Hepatitis B Vaccine (1 of 3 - 19+ 3-dose series)11/17/1998Cervical Cancer Xdlnjrdxj74/29/2001HPV Vaccine (1 - 3-dose SCDM series)11/17/2006 Mammogram Wlccyjppn49/29/2020CT Qvqruuqbbrhu66/29/2025ologuard (FIT-DNA) 11/17/20249360Phbnpftxgyt22/29/2025olorectal Cancer Ssgsqtqno60/29/2025Diabetes Hmjvolwpl58/29/53614008/13/2017Fecal Occult Blood11/17/2024Lipid Screening 11/17/20249681Nwagqmsyocosi54/29/2025ovid-19 Vaccine ( season)2025 08/25/2021, 07/21/2021Influenza Vaccine (#1)Pneumococcal Vaccine (3 of 3 - PCV20 or PCV21), 08/10/2014DTaP,Tdap,Td Vaccine (3 - Td or Tdap), 08/20/2020 Medical Devices ImplantedTypeAreaManufacturerDevice IdentifierShelf Expiration DateModel / Serial / LotImplant Nucleus Cochlear Slim Modiolar Electrode Ci532 Sterile Latex Free - [id number] Implanted:Qty[facility]ImplantLeft: EarCOCHLEAR 07/16/[id number] / / [id number]-Ss-W-Axik Implant - [id number] Implanted:Qty: 1 on 09[facility]02/2017 [facility] [id number] / / Description:[employer] Procedures Procedure NamePriorityDate/TimeAssociated DiagnosisCommentsBASIC METABOLIC PANEL Mytkuhp9508/13/2017 11:26 AM EST Pre-operative examination Sensorineural hearing loss (SNHL) of left ear, unspecified hearing status on contralateral side from Last 3 Months or Most Recently Relevant to Health Maintenance Results * BASIC METABOLIC PNL (08/13/2017 11:26 AM EST)ComponentValueRef RangeTest MethodAnalysis TimePerformed AtPathologist AvlljlxevYgmmefw5966 - 99 mg/dL 08/13/2017 2:26 PM ESTTRINITY HEALTH SYSTEM MAIN LABORATORYComment: The [place] Diabetes Association (ADA) provides guidance for cutoff [...] Standards of Medical Care in Diabetes 2016, [place] Diabetes Association. Diabetes Care. 2016.39(Suppl 1). JKA876 - 21 mg/dL08/13/2017 2:26 PM [facility] Creatinine0.830.58 - 0.96 mg/dL08/13/2017 2:26 PM [facility] GAAXYMDDERKgrpbs299855 - 144 mmol/L08/13/2017 2:26 PM [facility] LABORATORYPotassium4.63.7 - 5.1 mmol/L08/13/2017 2:26 PM [facility] QJMQIXUODBKvskydwx83031 - 105 mmol/L08/13/2017 2:26 PM [facility] NSDFPFUAWZCT78551 - 30 mmol/L08/13/2017 2:26 PM [facility] LABORATORYAnion Hxa302 - 18 mmol/L08/13/2017 2:26 PM [facility] LABORATORYCalcium9.18.5 - 10.2 mg/dL08/13/2017 2:26 PM [facility] LABORATORYeGFR->6002 2:26 PM [facility] LABORATORYeGFR-All Other Races>60.08/13/2017 2:26 PM [facility] LABORATORYComment: eGFR (Estimated GFR) Units of measure: [...] StatusGisellpatricia Knutson MDLABORATORYFinal ResultPerforming OrganizationAddressCity/State/ZIP CodePhone Number [facility] [address] [place] [address] from Last 3 Months or Most Recently Relevant to Health Maintenance Insurance * Guarantor: Amy DOMÍNGUEZ TypeRelation to PatientDate of BirthPhone Billing AddressSelf [id number] [address] [place] [address] Care Teams Team MemberRelationshipSpecialtyStart DateEnd Date Abel Patel DO PCP - GeneralFamily Medicine03/15/14 Raven Romo AUD [address] [place] [address] Care PartnerAudst. charles hospital01/12/24
--- OUTSIDE RECORDS SUMMARY | 2025-04-24 10:48 | XMS_ITS | Encounter Summary ---
Author Organization [facility] Address [address] [place] [address] Care Team Providers Care Laborer Livestock Name Role Phone Cruz Rajan MD Primary Care Provider [phone] Encounter Details DateTypeDepartmentCare Team (Latest Contact Info)Whfqjrtltcg70/20/2024linisync Result Encounter [facility] External Department Unsolicited Ivan Abad, DO [address] [place] [address] Social History Tobacco UseTypesPacks/DayYears UsedDateSmoking Tobacco: NeverSmokeless Tobacco: NeverAlcohol UseStandard Drinks/WeekCommentsNot Currently0 (1 standard drink = 0.6 oz pure alcohol)occasional alcohol use, Caffeine intake: none CommentsYesSex and Gender InformationValueDate RecordedSex Assigned at Xcbohx6201/21/2023 8:01 PM EDTLegal DbvAmkwmo83/15/2023 6:58 PM EDTGender Identity Nxjuoa3201/21/2023 8:01 PM EDTSexual BhprklmoawhTbwyonua66/02/2023 8:01 PM EDT documented as of this encounter Plan of Treatment DateTypeDepartmentCare Team (Latest Contact Info)Kvhvprxntay31/10/2025 10:00 AM ESTOffice Visit [facility] [address] [place] [phone] Ivan Abad, DO [address] [place] [address] documented as of this encounter Goals GoalPatient Goal TypeAssociated ProblemsRecent ProgressPatient-Stated?Author Reminders Care PlanOB RemindersNoOpen Scheduling, Backgrounddocumented as of this encounter Procedures Procedure NamePriorityDate/TimeAssociated DiagnosisCommentsUS OB BPP W NON-GQWFWH6108/11/2023 3:35 PM EST documented in this encounter Results * US OB BPP W NON-STRESS (08/11/2023 3:35 PM EST)Anatomical Region LateralityModalityOtherSpecimen (Source)Anatomical Location / Laterality Collection Method / VolumeCollection TimeReceived Time08/11/2023 3:35 PM EST Narrative 08/11/2023 4:47 PM EST [facility] ?[address] ? [place] [address] ? Ultrasound Report ? Signed ? Patient: AMY ALFARO ?MR#: [id number] ?? : 1980 ?Acct:[id number] ?? Age/Sex: 42 / F ?ADM Date: 08/11/23 ?? Loc: US ? Attending Dr: Ivan Abad D.O. ? Ordering Physician: Ivan Abad D.O. ?? Date of Service: 08/11/23 ?? Procedure(s): US OB BPP w non-stress ?? Accession Number(s): [id number] ? cc: Ivan Abad D.O.; Cruz Rajan M.D. ? [facility] ? [address] ? [place] [address] ? Patient Name: ?? AMY L ALFARO ? MRN: [id number] ? date: 1980 ?Sex: F ?? Assigned Patient Location: FBC ?? Current Patient Location: ? Accession/Order Number: [id number] ?? Exam Date: 08/11/2023 ??15:02 ?Report Date: 08/11/2023 ??15:35 ? At the request of: ?? IVAN ??POLLO ? Procedure: ??US OB BPP w non-stress ? EXAMINATION: US OB BPP w non-stress ? HISTORY: Small for gestational age P05.10 ? COMPARISON: Ultrasound OB biophysical 08/04/2023 ? TECHNIQUE: Ultrasound biophysical profile was performed in the radiology ?? department. ? BREATHING MOVEMENTS: 2.0 ?? GROSS BODY MOVEMENTS: 2.0 ?? TONE: 2.0 ?? QUALITATIVE AMNIOTIC FLUID VOLUME: 2.0 ? PRESENTATION: CEPHALIC ?? HEART RATE: 128.0 bpm bpm. ?? AMNIOTIC FLUID VOLUME: 14.9 cm ?? GESTATIONAL AGE: 34 weeks 5 days ? CONCLUSION: ? 1. Total biophysical profile score 8.0. ?? 2. Fluid noted within scrotal sac bilaterally. ? Electronically authenticated by: TOMAS ??SARINA ?? Date: 08/11/2023 ??15:35 ? Dictated By: ?Tomas Hurst M.D. ? Signed By: ?08/11/23 1647 ? DD/ 1535 ? TD/TT: ? Agency Cashier: Procedure Note Radiology, Radiologist, MD - 08/26/2023 [place] [address] Ultrasound Report Signed Patient: AMY ALFARO LMR#: [id number] : 1980Acct:[id number] Age/Sex: 42 / FADM Date: 08/11/23 Loc: US Attending Dr: Ivan Abad D.O. Ordering Physician: Ivan Abad D.O. Date of Service: 08/11/23 Procedure(s): US OB BPP w non-stress Accession Number(s): [id number] cc: Ivan Abad D.O.; Cruz Rajan M.D. The [place] [id number] Patient Name: AMY ALFARO MRN: [facility]:[id number] date: 1980 Sex: F Assigned Patient Location: [facility] Current Patient Location: Accession/Order Number: [id number] Exam Date: 08/11/2023 15:02 Report Date: 08/11/2023 15:35 At the request of: IVAN ABAD Procedure: US OB BPP w non-stress EXAMINATION: US OB BPP w non-stress HISTORY: Small for gestational age P05.10 COMPARISON: Ultrasound OB biophysical 08/04/2023 TECHNIQUE: Ultrasound biophysical profile was performed in the radiology department. BREATHING MOVEMENTS: 2.0 GROSS BODY MOVEMENTS: 2.0 TONE: 2.0 QUALITATIVE AMNIOTIC FLUID VOLUME: 2.0 PRESENTATION: CEPHALIC HEART RATE: 128.0 bpm bpm. AMNIOTIC FLUID VOLUME: 14.9 cm GESTATIONAL AGE: 34 weeks 5 days CONCLUSION: 1. Total biophysical profile score 8.0. 2. Fluid noted within scrotal sac bilaterally. Electronically authenticated by: TOMAS HURST Date: 08/11/2023 15:35 Dictated By: Tomas Hurst M.D. Signed By:08/11/23 9157 DD/ 1535 TD/TT: Agency Cashier: Authorizing ProviderResult TypeResult StatusCorey Pollo DOCLINISYNC IMAGINGFinal Result documented in this encounter Visit Diagnoses Not on filedocumented in this encounter Additional Health Concerns Active ProblemsNoted DateDiagnosed DateOB Cjqvulsmu15/01/2023 documented as of this encounter Care Teams Team MemberRelationshipSpecialtyStart DateEnd Date Cruz Rajan MD [address] [place] [address] [facility]02/16/23documented as of this encounter
--- OUTSIDE RECORDS SUMMARY | 2025-04-24 10:48 | XMS_ITS | Encounter Summary ---
Author Organization [facility] Address [address] [place] [address] Care Team Providers Care Extended Day Teacher Name Role Phone Cruz Rajan MD Primary Care Provider [phone] Encounter Details DateTypeDepartmentCare Team (Latest Contact Info)Xirwyncfgaf78/14/2024linisync Result Encounter [facility] External Department Unsolicited Ivan Abad, DO [address] [place] [address] Social History Tobacco UseTypesPacks/DayYears UsedDateSmoking Tobacco: NeverSmokeless Tobacco: NeverAlcohol UseStandard Drinks/WeekCommentsNot Currently0 (1 standard drink = 0.6 oz pure alcohol)occasional alcohol use, Caffeine intake: none CommentsYesSex and Gender InformationValueDate RecordedSex Assigned at Lmltce3101/21/2023 8:01 PM EDTLegal ZtcFjtqjr94/15/2023 6:58 PM EDTGender Identity Pwhqeg5801/21/2023 8:01 PM EDTSexual FwmozhhphczBiydyxlw36/02/2023 8:01 PM EDT documented as of this encounter Plan of Treatment DateTypeDepartmentCare Team (Latest Contact Info)Hpcxniqvkny15/10/2025 10:00 AM ESTOffice Visit [facility] [address] [facility] [place] [phone] Ivan Abad, DO [address] [place] [address] documented as of this encounter Goals GoalPatient Goal TypeAssociated ProblemsRecent ProgressPatient-Stated?Author Reminders Care PlanOB RemindersNoOpen Scheduling, Backgrounddocumented as of this encounter Procedures Procedure NamePriorityDate/TimeAssociated DiagnosisCommentsUS OB BPP W NON-EKENIL1808/05/2023 7:16 AM EST documented in this encounter Results * US OB BPP W NON-STRESS (08/05/2023 7:16 AM EST)Anatomical Region LateralityModalityOtherSpecimen (Source)Anatomical Location / Laterality Collection Method / VolumeCollection TimeReceived Time08/05/2023 7:16 AM EST Narrative 08/05/2023 7:19 AM EST [facility] ?[address] ? [place] [address] ? Ultrasound Report ? Signed ? Patient: AMY ALFARO ?MR#: [id number] ?? : 1980 ?Acct:[id number] ?? Age/Sex: 42 / F ?ADM Date: 08/04/23 ?? Loc: US ? Attending Dr: Ivan Abad D.O. ? Ordering Physician: Ivan Abad D.O. ?? Date of Service: 08/04/23 ?? Procedure(s): US OB BPP w non-stress ?? Accession Number(s): [id number] ? cc: Ivan Abad D.O.; Cruz Rajan M.D. ? [facility] ? [address] ? [place] [address] ? Patient Name: ?? AMY LIMNER ? MRN: [id number]:[id number] ? date: 1980 ?Sex: F ?? Assigned Patient Location: FBC ?? Current Patient Location: ? Accession/Order Number: [id number] ?? Exam Date: 08/04/2023 ??20:12 ?Report Date: 08/05/2023 ??07:16 ? At the request of: ?? IVAN ??POLLO ? Procedure: ??US OB BPP w non-stress ? EXAMINATION: US OB BPP w non-stress ? HISTORY: SMALL FOR GESTATIONAL AGE PO5.10 ? COMPARISON: Ultrasound OB growth to 124 ? TECHNIQUE: Ultrasound biophysical profile was performed in the radiology ?? department. ? BREATHING MOVEMENTS: 2.0 ?? GROSS BODY MOVEMENTS: 2.0 ?? TONE: 2.0 ?? QUALITATIVE AMNIOTIC FLUID VOLUME: 2.0 ? PRESENTATION: CEPHALIC ?? HEART RATE: 121.6 bpm bpm. ?? AMNIOTIC FLUID VOLUME: 11.8 cm ?? GESTATIONAL AGE: 33 weeks 5 days ? CONCLUSION: ? Total biophysical profile score 8.0. ? Electronically authenticated by: TOMAS ??SARINA ?? Date: 08/05/2023 ??07:16 ? Dictated By: ?Tomas Hurst M.D. ? Signed By: ?08/05/23718 ? DD/ 0716 ? TD/TT: ? Geospatial Intelligence Analyst: Procedure Note Radiology, Radiologist, MD - 08/05/2023 [place] [address] Ultrasound Report Signed Patient: AMY ALFARO LMR#: [id number] : 1980Acct:[id number] Age/Sex: 42 / FADM Date: 08/04/23 Loc: US Attending Dr: Ivan Abad D.O. Ordering Physician: Ivan Abad D.O. Date of Service: 08/04/23 Procedure(s): US OB BPP w non-stress Accession Number(s): [id number] cc: Ivan Abad D.O.; Cruz Rajan M.D. The [place] [id number] Patient Name: AMY ALFARO MRN: [id number] date: 1980 Sex: F Assigned Patient Location: [facility] Current Patient Location: Accession/Order Number: [id number] Exam Date: 08/04/2023 20:12 Report Date: 08/05/2023 07:16 At the request of: IVAN ABAD Procedure: US OB BPP w non-stress EXAMINATION: US OB BPP w non-stress HISTORY: SMALL FOR GESTATIONAL AGE PO5.10 COMPARISON: Ultrasound OB growth to 124 TECHNIQUE: Ultrasound biophysical profile was performed in the radiology department. BREATHING MOVEMENTS: 2.0 GROSS BODY MOVEMENTS: 2.0 TONE: 2.0 QUALITATIVE AMNIOTIC FLUID VOLUME: 2.0 PRESENTATION: CEPHALIC HEART RATE: 121.6 bpm bpm. AMNIOTIC FLUID VOLUME: 11.8 cm GESTATIONAL AGE: 33 weeks 5 days CONCLUSION: Total biophysical profile score 8.0. Electronically authenticated by: TOMAS HURST Date: 08/05/2023 07:16 Dictated By: Tomas Hurst M.D. Signed By:08/05/23718 DD/ 5 TD/TT: Geospatial Intelligence Analyst: Authorizing ProviderResult TypeResult StatusCorey Pollo DOCLINISYNC IMAGINGFinal Result documented in this encounter Visit Diagnoses Not on filedocumented in this encounter Additional Health Concerns Active ProblemsNoted DateDiagnosed DateOB Ylfcozzql19/01/2023 documented as of this encounter Care Teams Team MemberRelationshipSpecialtyStart DateEnd Date Cruz Rajan MD [address] [place] [address] [facility]02/16/23documented as of this encounter
--- OUTSIDE RECORDS SUMMARY | 2025-04-24 10:48 | XMS_ITS | Encounter Summary ---
Author Organization [facility] Address [address] [place] [address] Care Team Providers Care Model Engine Mechanic Name Role Phone Cruz Rajan MD Primary Care Provider [phone] Encounter Details DateTypeDepartmentCare Team (Latest Contact Info)Zoyfnglunbx34/27/2024linisync Result Encounter [facility] External Department Unsolicited Ivan Abad, DO [address] [place] [address] Social History Tobacco UseTypesPacks/DayYears UsedDateSmoking Tobacco: NeverSmokeless Tobacco: NeverAlcohol UseStandard Drinks/WeekCommentsNot Currently0 (1 standard drink = 0.6 oz pure alcohol)occasional alcohol use, Caffeine intake: none CommentsYesSex and Gender InformationValueDate RecordedSex Assigned at Yeachf8901/21/2023 8:01 PM EDTLegal FylEuydxu38/15/2023 6:58 PM EDTGender Identity Cweyyu7901/21/2023 8:01 PM EDTSexual ViaviwkxszxCpykavkb60/02/2023 8:01 PM EDT documented as of this encounter Plan of Treatment DateTypeDepartmentCare Team (Latest Contact Info)Vegpxwboxau29/10/2025 10:00 AM ESTOffice Visit [facility] [address] [place] [phone] Ivan Abda, DO [address] [place] [address] documented as of this encounter Goals GoalPatient Goal TypeAssociated ProblemsRecent ProgressPatient-Stated?Author Reminders Care PlanOB RemindersNoOpen Scheduling, Backgrounddocumented as of this encounter Procedures Procedure NamePriorityDate/TimeAssociated DiagnosisCommentsUS OB BPP W NON-AVJASU6408/18/2023 3:33 PM EST documented in this encounter Results * US OB BPP W NON-STRESS (08/18/2023 3:33 PM EST)Anatomical Region LateralityModalityOtherSpecimen (Source)Anatomical Location / Laterality Collection Method / VolumeCollection TimeReceived Time08/18/2023 3:33 PM EST Narrative 08/18/2023 3:36 PM EST [facility] ?[address] ? [place] [address] ? Ultrasound Report ? Signed ? Patient: AMY ALFARO ?MR#: [id number] ?? : 1980 ?Acct:[id number] ?? Age/Sex: 42 / F ?ADM Date: 08/18/23 ?? Loc: FBC ??250-1 ? Attending Dr: Ivan Abad D.O. ? Ordering Physician: Ivan Abad D.O. ?? Date of Service: 08/18/23 ?? Procedure(s): US OB BPP w non-stress ?? Accession Number(s): [id number] ? cc: Ivan Abad D.O.; Cruz Rajan M.D. ? [facility] ? [address] ? [place] [address] ? Patient Name: ?? AMY ALFARO ? MRN: [id number] ? date: 1980 ?Sex: F ?? Assigned Patient Location: ?? Current Patient Location: US ?? Accession/Order Number: [id number] ?? Exam Date: 08/18/2023 ??15:05 ?Report Date: 08/18/2023 ??15:33 ? At the request of: ?? IVAN ??POLLO ? Procedure: ??US OB BPP w non-stress ? EXAMINATION: US OB BPP w non-stress ? HISTORY: SMALL FOR GESTATIONAL AGE P05.10 ? COMPARISON: 07/23/2023, 02/20/2023, 06/24/2023 ? TECHNIQUE: Ultrasound biophysical profile was performed in the radiology ?? department. ? FINDINGS: ?? BREATHING MOVEMENTS: 2.0 ?? GROSS BODY MOVEMENTS: 2.0 ?? TONE: 2.0 ?? QUALITATIVE AMNIOTIC FLUID VOLUME: 2.0 ? PRESENTATION: CEPHALIC ?? HEART RATE: 134.3 bpm H.B./min ?? AMNIOTIC FLUID VOLUME: 13.1 cm cm ?? GESTATIONAL AGE: 35 weeks 5 days ? Anechoic echogenicity bilateral scrotum ? CONCLUSION: ? Total biophysical profile score: 8.0 ? Bilateral scrotal hydroceles. Right greater than left. Unknown etiology ? Electronically authenticated by: RIMMA ??MEDARDO ?? Date: 08/18/2023 ??15:33 ? Dictated By: ?Rimma Batres M.D. ? Signed By: ?08/18/231535 ? DD/ 1533 ? TD/TT: ? Supervisor Word Processing: Procedure Note Radiology, Radiologist, - 08/26/2023 [place] [address] Ultrasound Report Signed Patient: AMY ALFARO LMR#: [id number] : 1980Acct:[id number] Age/Sex: 42 / FADM Date: 08/18/23 Loc: [facility] 250-[address]: Ivan Abad D.O. Ordering Physician: Ivan Abad D.O. Date of Service: 08/18/23 Procedure(s): US OB BPP w non-stress Accession Number(s): [id number] cc: Ivan Abad D.O.; Cruz Rajan M.D. The [place] [id number] Patient Name: AMY ALFARO MRN: [id number] date: 1980 Sex: F Assigned Patient Location: US Current Patient Location: US Accession/Order Number: [id number] Exam Date: 08/18/2023 15:05 Report Date: 08/18/2023 15:33 At the request of: IVAN ABAD Procedure: US OB BPP w non-stress EXAMINATION: US OB BPP w non-stress HISTORY: SMALL FOR GESTATIONAL AGE P05.10 COMPARISON: 07/23/2023, 02/20/2023, 06/24/2023 TECHNIQUE: Ultrasound biophysical profile was performed in the radiology department. FINDINGS: BREATHING MOVEMENTS: 2.0 GROSS BODY MOVEMENTS: 2.0 TONE: 2.0 QUALITATIVE AMNIOTIC FLUID VOLUME: 2.0 PRESENTATION: CEPHALIC HEART RATE: 134.3 bpm H.B./min AMNIOTIC FLUID VOLUME: 13.1 cm cm GESTATIONAL AGE: 35 weeks 5 days Anechoic echogenicity bilateral scrotum CONCLUSION: Total biophysical profile score: 8.0 Bilateral scrotal hydroceles. Right greater than left. Unknown etiology Electronically authenticated by: RIMMA BATRES Date: 08/18/2023 15:33 Dictated By: Rimma Batres M.D. Signed By:08/18/231535 DD/ 32 TD/TT: Supervisor Word Processing: Authorizing ProviderResult TypeResult StatusCorey Pollo DOCLINISYNC IMAGINGFinal Result documented in this encounter Visit Diagnoses Not on filedocumented in this encounter Additional Health Concerns Active ProblemsNoted DateDiagnosed DateOB Avgihwnqw74/01/2023 documented as of this encounter Care Teams Team MemberRelationshipSpecialtyStart DateEnd Date Cruz Rajan MD [address] [place] [address] [facility]02/16/23documented as of this encounter
--- OUTSIDE RECORDS SUMMARY | 2025-04-24 10:48 | XMS_ITS | Clinical Summary ---
Author Organization [facility] Address [address] [place] [address] Care Team Providers Care Solar Energy Systems Designer Name Role Phone Cruz Rajan MD Primary Care Provider [phone] Allergies Active AllergyReactionsCriticalityNoted VrhtKbarxwdcZbltgarbjirXlsmo47/20/2014 YnwexIzeukti76/01/2023 Medications MedicationSigDispense QuantityRefillsLast FilledStart DateEnd DateStatus cetirizine (ZyrTEC) 10 MG tablet Take 10 mg by mouth DailyActive Active Problems ProblemNoted DateDiagnosed DateSmall for gestational age (SGA) ([facility]) 08/27/2023 Encounters DateTypeDepartmentCare YstoBnmloyxtpzl81/31/2025linisync Result Encounter [facility]OMS External Department Unsolicited Ivan Abad DO 04/20/2025 1:40 PM EDTOffice Visit [facility] [address] [place] [address] Terese Andrea PA Missed ([facility])04/20/2025 12:30 PM EDTAncillary Procedure [facility] [address] [place] [address] Missed menses; Positive urine test ([facility])04/16/2025Travelfrom Last 3 Months Family History Medical HistoryRelationNameCommentsDiabetesFatherMultiple sclerosisMotherBreast cancerOtherCancerOtherDepressionOtherDiabetesOtherHeart diseaseOtherHypertension OtherRelationNameStatusCommentsFatherAliveMotherAliveOther Social History Tobacco UseTypesPacks/DayYears UsedDateSmoking Tobacco: NeverSmokeless Tobacco: Never Tobacco Cessation:Counseling Given: Not Answered Alcohol UseStandard Drinks/WeekCommentsNot Currently0 (1 standard drink = 0.6 oz pure alcohol)occasional alcohol use, Caffeine intake: noneCommentsNoSex and Gender InformationValueDate RecordedSex Assigned at XhnosRortdd87/02/2023 8:01 PM EDTLegal JhyVtnmkt06/15/2023 6:58 PM EDTGender EwcdmutpEfxkvy33/02/2023 8:01 PM EDTSexual UsxgixrqhohBnnekjje92/02/2023 8:01 PM EDT Last Filed Vital Signs Vital SignReadingTime TakenCommentsBlood Oivhrmnn325/7004/26/2024 9:27 AM EST Pulse--Temperature--Respiratory Rate--Oxygen Saturation--Inhaled Oxygen Concentration--Fjdycr46.1 kg (117 lb)04/26/2024 9:27 AM JDVLnhsih242 cm (5' 3 ) 02/20/2023 11:45 AM EDTBody Mass Index20.7302/20/2023 11:45 AM EDT Plan of Treatment DateTypeDepartmentCare Team (Latest Contact Info)Ykutpbyknka13/10/2025 10:00 AM ESTOffice Visit [facility] [address] [place] [phone] Ivan Abad DO [address] [place], [place] [phone] Health MaintenanceDue DateLast DoneCommentsCT Gycdxqyxmqqz80/29/1980Colonoscopy 1979Colorectal Cancer Jbqghxqxm46/29/1980FIT-DNA1979FIT1979 FOBT1980 5215Utwofmuqnoeeo36/29/1980MMR Vaccines (1 of 1 - Standard series) 11/17/1980DTaP/Tdap/Td Vaccines (1 - Tdap)11/17/1986Hepatitis B Vaccines (1 of 3 - 19+ 3-dose series)11/17/1998HPV Vaccines (1 - 3-dose SCDM series)11/17/2006 Gkmkgegrn68/29/2020COVID-19 Vaccine ( season)/11/2021, 07/21/2021Influenza Vaccine (#1)/06/2019Cervical Cancer Screening 04/26/2029HPV/Yokyas9304/26/2029Pap Smear/10/2023, 04/22/2023HIB VaccinesAged OutNo longer eligible based [...] PlanOB RemindersNoOpen Scheduling, Background Procedures Procedure NamePriorityDate/TimeAssociated DiagnosisCommentsALL TYPE AND SCREEN Mydopte1704/21/2025 8:25 AM EDT ECG 12-LEAD04/21/2025 6:22 AM EDT US OB KYLTVFTEPLZFZmjzzaf28/30/2025 1:43 PM EDT Missed menses Positive urine test ([facility]) PAP AKKYKSovzzfd30/05/2024 12:00 AM ESTfrom Last 3 Months or Most Recently Relevant to Health Maintenance Results * ALL TYPE AND SCREEN (04/21/2025 8:25 AM EDT)ComponentValueRef RangeTest Method Analysis TimePerformed AtPathologist SignatureBLOOD TYPEO PositiveTBHANTIBODY SCREENNEGATIVETBHSpecimen (Source)Anatomical Location / LateralityCollection Method / VolumeCollection TimeReceived Time04/21/2025 8:25 AM EDT1 8:30 AM EDT Narrative [facility] - 04/21/2025 10:18 AM EDT [facility] , ?? Authorizing ProviderResult TypeResult StatusCorey Pollo DOCLINISYNCFinal Result Performing OrganizationAddressCity/State/ZIP CodePhone Number [facility] * ECG 12-LEAD (04/21/2025 6:22 AM EDT)Anatomical RegionLateralityModalityOther Specimen (Source)Anatomical Location / LateralityCollection Method / Volume Collection TimeReceived Time04/21/2025 6:22 AM EDT Narrative 04/21/2025 9:04 AM EDT [facility] ?[address] ? [place], [facility] ? Electrocardiograph Report ? Signed ? Patient: AMY ALFARO ?MR#: [id number] ?? : 1980 ?Acct:[id number] ?? Age/Sex: 44 / F ?ADM Date: 04/21/25 ?? Loc: PST ? Attending Dr: Ivan Abad D.O. ? Ordering Physician: Ivan Abad D.O. ?? Date of Service: 04/21/25 ?? Procedure(s): ECG 12 lead ?? Accession Number(s): [id number] ? cc: ?[facility] ? Test Date: ?2025-04-21 ?? Pat Name: ? AMY ALFARO ? Department: ? Room: ? - ?? Gender: ? Female ? Development Professional: ? : ?1980 ? Requested By: IVAN ABAD ?? Order Number: [id number] ?Reading MD: ?? TYREL ??Jose F RICHMOND ? Measurements ?? Intervals ?[place] ? Rate: ? 47 ? P: ?19 ?? WI: ? 131 ?QRS: ?58 ?? QRSD: ? 93 ? T: ?36 ?? QT: ? 420 ? QTc: ?373 ? Interpretive Statements ?? SINUS BRADYCARDIA ?? Borderline ECG ?? No previous ECG available for comparison ?? Electronically Signed On 04-21-2025 9:03:40 EDT by TYREL ??Jose F RICHMOND ? Dictated By: ?TYREL RICHMOND ? Signed By: ?04/21/25 0904 ? DD/ 1 ? TD/TT: ? Golf Course Superintendent: Procedure Note Radiology, Radiologist, MD - 04/21/2025 [place] [address] Electrocardiograph Report Signed Patient: AMY ALFARO LMR#: [id number] : 1980Acct:[id number] Age/Sex: 44 / FADM Date: 04/21/25 Loc: PST Attending Dr: Ivan Abad D.O. Ordering Physician: Ivan Abad D.O. Date of Service: 04/21/25 Procedure(s): ECG 12 lead Accession Number(s): [id number] cc: [facility] Test Date: 2025-04-21 Pat Name: AMY ALFARO Department: Room: - Gender: Female Development Professional: : 1980 Requested By: IVAN ABAD Order Number: [id number] Reading MD: TYREL RICHMOND M.D. Measurements Intervals [place] Rate: 47 P: 19 WI: 131 QRS: 58 QRSD: 93 T: 36 QT: 420 QTc: 373 Interpretive Statements SINUS BRADYCARDIA Borderline ECG No previous ECG available for comparison Electronically Signed On 04-21-2025 9:03:40 EDT by TYREL RICHMOND M.D. Dictated By: TYREL RICHMOND Signed By:04/21/25 0904 DD/ 0622 TD/TT: Golf Course Superintendent: Authorizing ProviderResult TypeResult StatusCorey Pollo DOCLINISYNC IMAGINGFinal Result * US OB transvaginal (04/20/2025 1:43 PM EDT)Anatomical RegionLateralityModality BodyUltrasoundSpecimen (Source)Anatomical Location / LateralityCollection Method / VolumeCollection TimeReceived Time04/20/2025 2:45 PM EDT Impressions 04/20/2025 3:23 PM EDT Single intrauterine gestational sac with a single pole, absence of cardiac activity questions viability at this time. Correlate with serial beta hCG and BRAIDED BAND ASSEMBLER consultation. TRANSCRIBED BY: ? ELECTRONICALLY SIGNED BY: [...] this time. Correlate with serialbeta hCG and BRAIDED BAND ASSEMBLER consultation. TRANSCRIBED BY: ELECTRONICALLY SIGNED BY: Donald Felipe MD Authorizing ProviderResult TypeResult StatusCorey Pollo DOIMG OB US PROCEDURES Final Result * Pap Smear (04/26/2024 12:00 AM EST)Specimen (Source)Anatomical Location / LateralityCollection Method / VolumeCollection TimeReceived TimeSwabCervical swab / Unknown Narrative Authorizing ProviderResult TypeResult StatusCorey Pollo DOLAB CYTOLOGY ORDERABLESFinal ResultPerforming OrganizationAddressCity/State/ZIP CodePhone Number EXTERNAL LAB from Last 3 Months or Most Recently Relevant to Health Maintenance Additional Health Concerns Active ProblemsNoted DateDiagnosed DateOB Retbenght37/01/2023 Insurance Care Teams Team MemberRelationshipSpecialtyStart DateEnd Cruz Rajan MD [address] [place] [address] [facility]02/16/23
--- OUTSIDE RECORDS SUMMARY | 2025-04-24 10:49 | XMS_ITS | Encounter Summary ---
Author Organization [facility] Address [address] [place] [address] Care Team Providers Care Python Engineer Name Role Phone Cruz Rajan MD Primary Care Provider [phone] Encounter Details DateTypeDepartmentCare Team (Latest Contact Info)Ylzoarvidde21/26/2025Travel Social History Tobacco UseTypesPacks/DayYears UsedDateSmoking Tobacco: NeverSmokeless Tobacco: NeverAlcohol UseStandard Drinks/WeekCommentsNot Currently0 (1 standard drink = 0.6 oz pure alcohol)occasional alcohol use, Caffeine intake: none CommentsNoSex and Gender InformationValueDate RecordedSex Assigned at Yzybaf7401/21/2023 8:01 PM EDTLegal UpkYlfaie59/15/2023 6:58 PM EDTGender Identity Jkairu7701/21/2023 8:01 PM EDTSexual HkelwvsqdrtHajadgwv74/02/2023 8:01 PM EDT documented as of this encounter Plan of Treatment DateTypeDepartmentCare Team (Latest Contact Info)Shistvhsuwc78/10/2025 10:00 AM ESTOffice Visit [facility] [address] [facility] [phone] Camron Abad DO [address] [facility] [place] [address] documented as of this encounter Goals GoalPatient Goal TypeAssociated ProblemsRecent ProgressPatient-Stated?Author Reminders Care PlanOB RemindersNoOpen Scheduling, Backgrounddocumented as of this encounter Visit Diagnoses Not on filedocumented in this encounter Additional Health Concerns Active ProblemsNoted DateDiagnosed DateOB Zwljnegxu87/01/2023 documented as of this encounter Care Teams Team MemberRelationshipSpecialtyStart DateEnd Date Cruz Rajan MD [address] [place] [address] PCP - General02/16/23documented as of this encounter
--- OUTSIDE RECORDS SUMMARY | 2025-04-24 10:49 | XMS_ITS | Clinical Summary ---
Author Organization [facility] Address [id number] [address] [place] [address] Care Team Providers Care Coal Handling Supervisor Name Role Phone Cruz Rajan MD Primary Care Provider [phone] Social History Tobacco UseTypesPacks/DayYears UsedDateSmoking Tobacco: Never Assessed CommentsNoSex and Gender InformationValueDate RecordedSex Assigned at BirthNot on fileLegal QuhLgdogj05/06/2023 1:43 PM EDTGender IdentityNot on fileSexual OrientationNot on file Plan of Treatment Health MaintenanceDue DateLast DoneCommentsDepression Dwvrhheyj91/29/1992Tobacco Oxtrjmgmf58/29/1992Adult BMI Yscomdetp33/29/1998Pap Smear11/17/2000COVID-19 Vaccine ( season)503/11/2021, 07/21/2021Influenza Vaccine /06/2019DTaP,Tdap and Td Vaccines (2 - Tdap)/06/2020 Medical Devices Not on file Insurance Care Teams Team MemberRelationshipSpecialtyStart DateEnd Date Cruz Rajan MD [facility]pvmhuqw46[facility]
--- OUTSIDE RECORDS SUMMARY | 2025-04-24 10:49 | XMS_ITS | Patient Health Record ---
Author Organization [facility] [place] Address [address] [place] [address] Care Team Providers Care Foil Spinner Name Role Phone Lukas Rajan Primary Care Provider [phone] Keerthi Stephens Unavailable [phone] Allergies No Known Allergies Results Component Value Reference Range Notes ECG 12 lead Reviewed date:04/22/2025 12:32:22 PM Interpretation: Performing Lab: Notes/Report: Source Facility: [place] [address] Electrocardiograph Report Signed Patient: AMY DOMÍNGUEZ MR#: [id number] : 1980 Acct:[id number] Age/Sex: 44 / F ADM Date: 04/21/25 Loc: [facility] Attending Dr: Ivan Abad D.O. Ordering Physician: Ivan Abad D.O. Date of Service: 04/21/25 Procedure(s): ECG 12 lead Accession Number(s): [id number] cc: [facility] Test Date: 2025-04-21 Pat Name: AMY DOMÍNGUEZ Department: Room: - Gender: Female Game Artist: : 1980 Requested By: IVAN ABAD Order Number: [id number] Reading MD: TYREL RICHMOND M.D. Measurements Intervals [place] Rate: 47 P: 19 AR: 131 QRS: 58 QRSD: 93 T: 36 QT: 420 QTc: 373 Interpretive Statements SINUS BRADYCARDIA Borderline ECG No previous ECG available for comparison Electronically Signed On 04-21-2025 9:03:40 EDT by TYREL RICHMOND M.D. Dictated By: TYREL RICHMOND Signed By: 04/21/25903 DD/ 1 TD/TT: Ironer Or Presser: Shagufta LEDEZMA HPV,Age Gdln Reviewed date:05/04/2024 07:44:53 PM Interpretation: Performing Lab: Notes/Report: BRUSH-SPATULA CERVIX ENDOCERVIX [facility] , Age Gdln ACOG Testing Note . TESTS RESULT FLAG UNITS REF RANGE LAB Clinician Provided Cytology Information Source.............Cervix;Endoce rvix No. of containers..01 ThinPrep Vial Age Algo ACOG Mini... 30-65 01 FLAG LEGEND: L-Low Normal,H-High Normal,LL-Alert Low,HH-Alert High <-Panic Low,>-Panic High,A-Abnormal,AA-Critical Abnormal Performed at: 01 =G [facility] [address] Rocío Hong MD, BRISA, Aptima HPV, rfx 16/18,45 Note . TESTS RESULT FLAG UNITS REF RANGE LAB DIAGNOSIS: 02 NEGATIVE FOR INTRAEPITHELIAL LESION OR MALIGNANCY. Specimen adequacy: 02 Satisfactory for evaluation. Endocervical and/or squamous metaplastic cells (endocervical component) are present. Performed by: 02 Jose G Whittington, Inspector Filters ([facility]) . 02 Note: Note 02 The Pap [...] <-Panic Low,>-Panic High,A-Abnormal,AA-Critical Abnormal Performed at: [address] [address] Rocío Hong MD, HPV Aptima Negative Negative This nucleic acid amplification test detects fourteen high- risk HPV types (16,18,31,33,35,39,45,51,52,56,5 8,59,66,68) without differentiation. Performed at: = - [facility] [id number] Quantitative Research Analyst: Rocío Hong MD, Phone: [phone] Performed at: - [address] [id number] Quantitative Research Analyst: Rocío Hong MD, Phone: [phone] Performing Lab: see note [facility] LBType and Screen Reviewed date:04/22/2025 12:32:22 PM Interpretation: Performing Lab: Notes/Report: [facility] ,Blood TypeO PositiveAntibody ScreenNEGATIVE Reason For Referral No Information Medications Medication SIG (Take, Route, Frequency, Duration) Notes Start Date End Date Status Benzonatate 200 MG 1 capsule as needed Orally Three times a day; Duration: 7 days 11/22/2024tive Social History Tobacco Use: Social History Observation Description Date Details (start date - stop date) Never Smoker NA - NA Tobacco Control (Standard) Question Answer Notes Tobacco use: Nonsmoker AUDIT-C (Standard) Question Answer Notes Did you have a drink containing alcohol in the p ast year? No Rgszrs4XjhmssiwpjgjgsZeecrawr Vital Signs Heart Rate 72 /min 11/22/2024 Gcavfwng92 %11/22/2024lood pressure hptbgmano23 mm Hg11/22/20245205Ddwkyj70 in 11/22/2024lood pressure bjycezwx662 mm Hg11/22/20241726Nylsqk701.8 lbs11/22/2024MI 21.4 kg/m211/22/2024 Encounters Encounter Location Date Provider Diagnosis [facility] [address] [place] [phone] 11/22/2024 Keerthi Stephens Bronchitis J40 Assessments Encounter [...] ACCESS PPO PLUS LOCAL PLAN [address] [place] [address] [id number] Ankush Domínguez - patient is the insured Medical (General) History Surgical History Surgery Date(Month/Year) Cochlear implant
--- OUTSIDE RECORDS SUMMARY | 2025-04-24 10:49 | XMS_ITS | Encounter Summary ---
Author Organization [facility] Address [address] [place] [address] Care Team Providers Care Flying Instructor Name Role Phone Cruz Rajan MD Primary Care Provider [phone] Encounter Details DateTypeDepartmentCare Team (Latest Contact Info)Zllgeynsxgg41/31/2025linisync Result Encounter [facility]S External Department Unsolicited Ivan Abad, DO [address] [place], [place] [phone] Social History Tobacco UseTypesPacks/DayYears UsedDateSmoking Tobacco: NeverSmokeless Tobacco: NeverAlcohol UseStandard Drinks/WeekCommentsNot Currently0 (1 standard drink = 0.6 oz pure alcohol)occasional alcohol use, Caffeine intake: none CommentsNoSex and Gender InformationValueDate RecordedSex Assigned at Nghlpm9701/21/2023 8:01 PM EDTLegal YlwOyoqot97/15/2023 6:58 PM EDTGender Identity Nxmbch7301/21/2023 8:01 PM EDTSexual ZnrolzenlwiNysvlsuc94/02/2023 8:01 PM EDT documented as of this encounter Plan of Treatment DateTypeDepartmentCare Team (Latest Contact Info)Uytnoudtjyx71/10/2025 10:00 AM ESTOffice Visit [facility] [place] [facility] [address] [facility] [place] [phone] Ivan Abad, DO [address] [place] [address] documented as of this encounter Goals GoalPatient Goal TypeAssociated ProblemsRecent ProgressPatient-Stated?Author Reminders Care PlanOB RemindersNoOpen Scheduling, Backgrounddocumented as of this encounter Procedures Procedure NamePriorityDate/TimeAssociated DiagnosisCommentsALL TYPE AND SCREEN Aqbrdst3804/21/2025 8:25 AM EDT ECG 12-LEAD04/21/2025 6:22 AM EDT documented in this encounter Results * ALL TYPE AND SCREEN (04/21/2025 8:25 AM EDT)ComponentValueRef RangeTest Method Analysis TimePerformed AtPathologist SignatureBLOOD TYPEO PositiveTBHANTIBODY SCREENNEGATIVETBHSpecimen (Source)Anatomical Location / LateralityCollection Method / VolumeCollection TimeReceived Time04/21/2025 8:25 AM EDT1 8:30 AM EDT Narrative [facility] - 04/21/2025 10:18 AM EDT [facility] , ?? Authorizing ProviderResult TypeResult StatusCorey Pollo DOCLINISYNCFinal Result Performing OrganizationAddressCity/State/ZIP CodePhone Number [facility] * ECG 12-LEAD (04/21/2025 6:22 AM EDT)Anatomical RegionLateralityModalityOther Specimen (Source)Anatomical Location / LateralityCollection Method / Volume Collection TimeReceived Time04/21/2025 6:22 AM EDT Narrative 04/21/2025 9:04 AM EDT [facility] ?[address] ? [place] [address] ? Electrocardiograph Report ? Signed ? Patient: DOMINICAMY Cheney ?MR#: [id number] ?? : 1980 ?Acct:[id number] ?? Age/Sex: 44 / F ?ADM Date: 04/21/25 ?? Loc: PST ? Attending Dr: Ivan Abad D.O. ? Ordering Physician: Ivan Abad D.O. ?? Date of Service: 04/21/25 ?? Procedure(s): ECG 12 lead ?? Accession Number(s): [id number] ? cc: ?[facility] ? Test Date: ?2025-04-21 ?? Pat Name: ? AMY ALFARO ? Department: ? Room: ? - ?? Gender: ? Female ? Switchboard Operator Supervisor: ? : ?1980 ? Requested By: IVAN ABAD ?? Order Number: [id number] ?Reading MD: ?? TYREL ??Jose F RICHMOND ? Measurements ?? Intervals ?[place] ? Rate: ? 47 ? P: ?19 ?? AR: ? 131 ?QRS: ?58 ?? QRSD: ? 93 ? T: ?36 ?? QT: ? 420 ? QTc: ?373 ? Interpretive Statements ?? SINUS BRADYCARDIA ?? Borderline ECG ?? No previous ECG available for comparison ?? Electronically Signed On 04-21-2025 9:03:40 EDT by TYREL ??Jose F RICHMOND ? Dictated By: ?TYREL RICHMOND ? Signed By: ?10/31/25 0904 ? DD/ 1 ? TD/TT: ? Master Merchandiser: Procedure Note Radiology, Radiologist, MD - 04/21/2025 [place] [address] Electrocardiograph Report Signed Patient: AMY ALFARO LMR#: [id number] : 1980Acct:[id number] Age/Sex: 44 / FADM Date: 04/21/25 [facility]: Ivan Abad D.O. Ordering Physician: Ivan Abad D.O. Date of Service: 04/21/25 Procedure(s): ECG 12 lead Accession Number(s): [id number] cc: [facility] Test Date: 2025-04-21 Pat Name: AMY ALFARO Department: Room: - Gender: Female Switchboard Operator Supervisor: : 1980 Requested By: IVAN ABAD Order Number: [id number] Reading MD: TYREL RICHMOND M.D. Measurements Intervals [place] Rate: 47 P: 19 AR: 131 QRS: 58 QRSD: 93 T: 36 QT: 420 QTc: 373 Interpretive Statements SINUS BRADYCARDIA Borderline ECG No previous ECG available for comparison Electronically Signed On 04-21-2025 9:03:40 EDT by TYREL RICHMOND M.D. Dictated By: TYREL RICHMOND Signed By:04/21/25903 DD/ 1 TD/TT: Master Merchandiser: Authorizing ProviderResult TypeResult StatusCorey Pollo DOCLINISYNC IMAGINGFinal Result documented in this encounter Visit Diagnoses Not on filedocumented in this encounter Additional Health Concerns Active ProblemsNoted DateDiagnosed DateOB Zbjufbgtg58/06/2022 documented as of this encounter Care Teams Team MemberRelationshipSpecialtyStart DateEnd Date Cruz Rajan MD [address] [place] [phone] PCP - General02/16/23documented as of this encounter
[2025-04-24 11:00] VITALS: BP 96/48; PULSE 58; TEMP 36.4; O2SAT 99; BMI 22.4
[2025-04-24 11:02] LABS: Hematocrit 41.1 % (36.0-48.0); Hemoglobin 13.9 g/dL (12.0-16.0); Immature Granulocytes Abs Auto 0.02 10^3/uL (0.00-0.03); Immature Granulocytes Pct Auto 0.2 % (0.0-0.5); Lymphocytes Absolute Auto 2.0 10^3/uL (1.2-3.8); Mean Corpuscular HGB Conc 33.8 g/dL (29.9-35.2); Mean Corpuscular Hemoglobin 31.2 pg (26.7-34.0); Mean Corpuscular Volume 92.4 fL (81.0-99.0); Platelet Count 251 10^3/uL (150-450); Red Blood Count 4.45 10^6/uL (4.20-5.40); White Blood Count 8.3 10^3/uL (4.0-11.0)
--- NOTE | 2025-04-24 12:28 | P.ON_ITS ---
Brief Operative Note Date of procedure: 04/24/25 Pre-op diagnosis general: missed first trimester Post-op diagnosis: same as pre-op Procedure: NAME OF PROCEDURE: [D&C suction ] PROCEDURE: The patient was taken back to the OR where she was given general anesthesia without difficulty. She was then placed in dorsal lithotomy position, prepped and draped in the normal sterile fashion. A weighted speculum was placed in the patient's vagina and the anterior lip of the cervix was identified and grasped with a single-tooth tenaculum. The patient was then gently dilated using Hegar dilators after we had sounded roughly to 12 cm. The suction curette was then tested. The suction curette was then placed in the patient's uterus and products of conception were removed using an 10-Bangladeshi suction curette. ?Excellent hemostasis was noted. The patient tolerated the procedure well. Sponge, lap, and needle counts were correct x 2. All instruments were then removed from the patient's vagina. The patient was taken to the Recovery Room in stable condition. ?? Anesthesia: MAC Surgeon: Camron Abad Estimated blood loss (mL): 5 Pathology: other (poc) Condition: stable Disposition: floor Urinary Catheter Management Urinary Catheter Management Urethral: Cath placed during this visit: no
[2025-04-24 12:30] VITALS: BP 113/55; PULSE 70; TEMP 36.2; O2SAT 96
[2025-04-24 12:45] VITALS: BP 103/55; PULSE 77; O2SAT 98
[2025-04-24 13:00] VITALS: BP 99/53; PULSE 60; O2SAT 100
[2025-04-24 13:17] VITALS: BP 107/55; PULSE 66; O2SAT 100
== END 2025-04-24 13:27 | disposition home or self-care (01) ==
PROVIDERS: PCP Family Medicine; Visit Provider Obstetrics & Gynecology
PROC: (CPT 1965; principal; 2025-04-24 12:00)
DX: O02.1 Missed abortion (principal); Z96.21 Cochlear implant status; J45.909 Unspecified asthma, uncomplicated
CPT/HCPCS: 59820; 36415; 84702; 85025; J1885; J2405; J2590; J2704; J3010

== ENCOUNTER 2025-05-01 13:45 | Outpatient (REF) | payer BC, SELFPAY ==
--- OUTSIDE RECORDS SUMMARY | 2025-04-20 11:30 | XMS_ITS | Encounter Summary ---
Author Organization [facility] Address [address] [place] [address] Care Team Providers Care Office Professional Name Role Phone Cruz Rajan MD Primary Care Provider [phone] Encounter Details DateTypeDepartmentCare Team (Latest Contact Info)Tejbosisttp66/30/2025 12:30 PM EDTAncillary Procedure [facility] [address] [place] [address] Missed menses; Positive urine test ([facility]) Social History Tobacco UseTypesPacks/DayYears UsedDateSmoking Tobacco: NeverSmokeless Tobacco: NeverAlcohol UseStandard Drinks/WeekCommentsNot Currently0 (1 standard drink = 0.6 oz pure alcohol)occasional alcohol use, Caffeine intake: none CommentsNoSex and Gender InformationValueDate RecordedSex Assigned at Jdpymn0101/21/2023 8:01 PM EDTLegal XeeIalcmr08/15/2023 6:58 PM EDTGender Identity Fmbkke9201/21/2023 8:01 PM EDTSexual XemptonsmskUkiliqng31/02/2023 8:01 PM EDT documented as of this encounter Plan of Treatment DateTypeDepartmentCare Team (Latest Contact Info)Iqxnxgplrmy09/16/2026 11:00 AM ESTProcedure Visit [facility] [address] [place] [address] Camron Abad DO [address] [place] [address] documented as of this encounter Goals GoalPatient Goal TypeAssociated ProblemsRecent ProgressPatient-Stated?Author Reminders Care PlanOB RemindersNoOpen Scheduling, Backgrounddocumented as of this encounter Procedures Procedure NamePriorityDate/TimeAssociated DiagnosisCommentsUS OB TRANSVAGINAL Nmcivaf8804/20/2025 1:43 PM EDT Missed menses Positive urine [...] time. Correlate with serial beta hCG and STICK ROLLER consultation. TRANSCRIBED BY: ? ELECTRONICALLY SIGNED BY: [...] this time. Correlate with serialbeta hCG and STICK ROLLER consultation. TRANSCRIBED BY: ELECTRONICALLY SIGNED BY: Donald Felipe MD Authorizing ProviderResult TypeResult StatusCorey Pollo DOIMG OB US PROCEDURES Final Result documented in this encounter Visit Diagnoses Diagnosis Missed menses Positive urine test (HHS-HCC) documented in this encounter Additional Health Concerns Active ProblemsNoted DateDiagnosed DateOB Anwshtikv21/01/2023 documented as of this encounter Care Teams Team MemberRelationshipSpecialtyStart DateEnd Date Cruz Rajan MD [address] [place] [address] PCP - General02/16/23documented as of this encounter
--- OUTSIDE RECORDS SUMMARY | 2025-04-20 12:40 | XMS_ITS | Encounter Summary ---
Author Organization [facility] Address [address] [place] [address] Care Team Providers Care Janitorial Cleaner Name Role Phone Cruz Rajan MD Primary Care Provider [phone] Encounter Details DateTypeDepartmentCare Team (Latest Contact Info)Pbktwzllnax40/30/2025 1:40 PM EDTOffice Visit [facility] [address] [place] [address] Terese Andrea PA [address] [place] [address] Missed ([facility]) Social History Tobacco UseTypesPacks/DayYears UsedDateSmoking Tobacco: NeverSmokeless Tobacco: NeverAlcohol UseStandard Drinks/WeekCommentsNot Currently0 (1 standard drink = 0.6 oz pure alcohol)occasional alcohol use, Caffeine intake: none CommentsNoSex and Gender InformationValueDate RecordedSex Assigned at Aluaen0501/21/2023 8:01 PM EDTLegal IhtJrgixe38/15/2023 6:58 PM EDTGender Identity Pihuwg3001/21/2023 8:01 PM EDTSexual AzpzhfgjhqnQccnrjvh25/02/2023 8:01 PM EDT documented as of this encounter Progress Notes * ERIC Smallwood - 04/20/2025 1:40 PM EDT Reason for Appointment: Patient ID: Amy Domínguez is a 44 y.o. female who presents for No chief complaint on file. Patient presents today for Consult appointment. MEDICATIONS Current Outpatient Medications Medication Instructions cetirizine (ZYRTEC) 10 mg, Oral, Daily ALLERGIES Allergies Allergen Reactions Octacosanol Cough Other Unknown PROBLEMS Active Ambulatory Problems Diagnosis Date Noted Small for gestational age (SGA) ([facility] 08/27/2023 Resolved Ambulatory Problems Diagnosis Date Noted No Resolved Ambulatory Problems Past Medical History: Diagnosis Date BMI 20.0-20.9, adult Family history of breast cancer in first degree relative Hearing loss, sensorineural HISTORY PAST MEDICAL HISTORY SOCIAL HISTORY Past Medical History: Diagnosis Date BMI 20.0-20.9, adult Family history of breast cancer in first degree relative Hearing loss, sensorineural Social History Tobacco Use Smoking status: Never Smokeless tobacco: Never Substance Use Topics Alcohol use: Not Currently Comment: occasional alcohol use, Caffeine intake: none Drug use: Never FAMILY HISTORY Family History Problem Relation Name Age of Onset Multiple sclerosis Mother Diabetes Father Diabetes Other Hypertension Other Depression Other Cancer Other Heart disease Other Breast cancer Other SURGICAL HISTORY Past Surgical History: Procedure Laterality Date COCHLEAR IMPLANT Left 09/02/2017 DILATION AND CURETTAGE PAP SMEAR 11/27/2021 REVIEW OF SYSTEMS Review of Systems: Review of Systems Constitutional: Negative. HENT: Negative. Eyes: Negative. Respiratory: Negative. Cardiovascular: Negative. Gastrointestinal: Negative. Genitourinary: Negative. Musculoskeletal: Negative. Skin: Negative. Neurological: Negative. All other systems reviewed and are negative. Hematological: Negative. Endocrine: Negative. Allergic/Immunologic: Negative. OBJECTIVE Objective: Physical Exam Constitutional: Appearance: Normal appearance. She is well-developed. Cardiovascular: Rate and Rhythm: Normal rate and regular rhythm. Pulmonary: Effort: Pulmonary effort is normal. Breath sounds: Normal breath sounds. Abdominal: General: Bowel sounds are normal. There is no distension. Palpations: Abdomen is soft. Tenderness: There is no abdominal tenderness. There is no guarding or rebound. Musculoskeletal: General: No swelling. Normal range of motion. Right lower leg: No edema. Left lower leg: No edema. Neurological: Mental Status: She is alert and oriented to person, place, and time. Skin: General: Skin is warm and dry. Psychiatric: Mood and Affect: Mood normal. Behavior: Behavior normal. Vitals and nursing note reviewed. Exam conducted with a saturation equipment operator present. Vitals: Estimated body mass index is 20.73 kg/m?? as calculated from the following: Height as of 02/20/23: 5' 3 . Weight as of 04/26/24: 117 lb. BP: NO VITALS OBTAINED AT APPOINTMENT TODAY, due to ultrasound results. LMP: 02/14/25 Assessment/Plan ICD-10-CM 1. Missed (HHS-HCC) O02.1 Patient and spouse present follow up ultrasound prior to visit. At time of scan it was determined that there was a demise. Discussed options with patient and spouse. Patient would like to proceed to OR for Suction D&C. Patient is scheduled for operative procedure on Thursday04/24/25. Patient is setup for P.A.T on Thursday04/21/25. Surgical consent signed and to be sent to PAT at [facility]. Documented by Marge Alford LPN on behalf of: Tea Sheehan, MSN, APPLICATIONS SUPPORT SPECIALIST-BC documented in this encounter Plan of Treatment DateTypeDepartmentCare Team (Latest Contact Info)Azisplsxuvi94/16/2026 11:00 AM ESTProcedure Visit [facility] [address] [place] [phone] Camron Abad DO [address] [place], [place] [phone] documented as of this encounter Goals GoalPatient Goal TypeAssociated ProblemsRecent ProgressPatient-Stated?Author Reminders Care PlanOB RemindersNoOpen Scheduling, Backgrounddocumented as of this encounter Visit Diagnoses Diagnosis Missed ([facility]) Missed documented in this encounter Additional Health Concerns Active ProblemsNoted DateDiagnosed DateOB Ifpgrrmhj30/01/2023 documented as of this encounter Care Teams Team MemberRelationshipSpecialtyStart DateEnd Date Cruz Rajan MD [address] [facility] [place] [address] PCP - General02/16/23documented as of this encounter
--- OUTSIDE RECORDS SUMMARY | 2025-05-01 10:00 | XMS_ITS | Encounter Summary ---
Author Organization [facility] Address [address] [place] [address] Care Team Providers Care Convalescent Sitter Name Role Phone Cruz Rajan MD Primary Care Provider [phone] Reason for Visit * ReasonCommentsGynecologic Exam Encounter Details DateTypeDepartmentCare Team (Latest Contact Info)Hylgxxsenhw75/10/2025 10:00 AM ESTOffice Visit [facility] [address] [place] [phone] Camron Abad DO [address] [facility] [address] [place], [facility]11 Well woman exam with routine gynecological exam; Encounter for screening mammogram for malignant neoplasm of breast; Miscarriage ([facility]) Social History Tobacco UseTypesPacks/DayYears UsedDateSmoking Tobacco: NeverSmokeless Tobacco: NeverAlcohol UseStandard Drinks/WeekCommentsNot Currently0 (1 standard drink = 0.6 oz pure alcohol)occasional alcohol use, Caffeine intake: none CommentsNoSex and Gender InformationValueDate RecordedSex Assigned at Pwyxhg7501/21/2023 8:01 PM EDTLegal BvnJyenfh03/15/2023 6:58 PM EDTGender Identity Lbpcdg5301/21/2023 8:01 PM EDTSexual KbvhgjhhrahDbutvoih28/02/2023 8:01 PM EDT documented as of this encounter Last Filed Vital Signs Vital SignReadingTime TakenCommentsBlood Yzwjfgow547/5805/01/2025 10:04 AM EST Pulse--Temperature--Respiratory Rate--Oxygen Saturation--Inhaled Oxygen Concentration--Beonih09.8 kg (125 lb 1.9 oz)05/01/2025 10:04 AM ADHBeulgo778 cm (5' 3 )05/01/2025 10:04 AM ESTBody [...] Date Noted Small for gestational age (SGA) ([facility]) 08/27/2023 Resolved Ambulatory Problems Diagnosis [...] nursing note reviewed. Exam conducted with a coat operator insulator present. Vitals: Estimated body mass index is [...] screening mammogram Bilateral screening mammogram 3. Miscarriage ([facility]) O03.9 Patient with recent Miscarriage [...] Plan of Treatment DateTypeDepartmentCare Team (Latest Contact Info)Tjupukbqnsg57/16/2026 11:00 AM ESTProcedure Visit [facility] [address] [place] [address] Camron Abad DO [address] [place] [address] NameTypePriorityAssociated DiagnosesOrder ScheduleBilateral screening mammogram ImagingRoutine Encounter [...] Additional Health Concerns Active ProblemsNoted DateDiagnosed DateOB Nadqfkqpm18/01/2023 documented as of this encounter Care Teams Team MemberRelationshipSpecialtyStart DateEnd Date Cruz Rajan MD [address] [place] [address] PCP - General02/16/23documented as of this encounter
--- OUTSIDE RECORDS SUMMARY | 2025-05-01 13:48 | XMS_ITS | Encounter Summary ---
Author Organization [facility] Address [address] [place] [address] Care Team Providers Care Senior Mechanical Development Engineer Name Role Phone Cruz Rajan MD Primary Care Provider [phone] Encounter Details DateTypeDepartmentCare Team (Latest Contact Info)Nismfuoxjow72/09/2025Travel Social History Tobacco UseTypesPacks/DayYears UsedDateSmoking Tobacco: NeverSmokeless Tobacco: NeverAlcohol UseStandard Drinks/WeekCommentsNot Currently0 (1 standard drink = 0.6 oz pure alcohol)occasional alcohol use, Caffeine intake: none CommentsNoSex and Gender InformationValueDate RecordedSex Assigned at Ztiwrw4301/21/2023 8:01 PM EDTLegal FaiRgfegm03/15/2023 6:58 PM EDTGender Identity Igxnvi2501/21/2023 8:01 PM EDTSexual DcucblbppolVfgaxght44/02/2023 8:01 PM EDT documented as of this encounter Plan of Treatment DateTypeDepartmentCare Team (Latest Contact Info)Jklqkhoncmy27/16/2026 11:00 AM ESTProcedure Visit [facility] [address] [place] [phone] Camron Abad DO [address] [facility] [place] [address] documented as of this encounter Goals GoalPatient Goal TypeAssociated ProblemsRecent ProgressPatient-Stated?Author Reminders Care PlanOB RemindersNoOpen Scheduling, Backgrounddocumented as of this encounter Visit Diagnoses Not on filedocumented in this encounter Additional Health Concerns Active ProblemsNoted DateDiagnosed DateOB Emjmoyenr93/01/2023 documented as of this encounter Care Teams Team MemberRelationshipSpecialtyStart DateEnd Date Cruz Rajan MD [address] [place] [address] PCP - General02/16/23documented as of this encounter
--- OUTSIDE RECORDS SUMMARY | 2025-05-01 13:48 | XMS_ITS | Encounter Summary ---
Author Organization [facility] Address [address] [place] [address] Care Team Providers Care Perfect Binder Operator Name Role Phone Cruz Rajan MD Primary Care Provider [phone] Encounter Details DateTypeDepartmentCare Team (Latest Contact Info)Xdjaskexynx09/12/2024Clinisync Result Encounter [facility] External Department Unsolicited Ivan Abad, DO [address] [place] [address] Social History Tobacco UseTypesPacks/DayYears UsedDateSmoking Tobacco: NeverSmokeless Tobacco: NeverAlcohol UseStandard Drinks/WeekCommentsNot Currently0 (1 standard drink = 0.6 oz pure alcohol)occasional alcohol use, Caffeine intake: none CommentsYesSex and Gender InformationValueDate RecordedSex Assigned at Xlgrct0801/21/2023 8:01 PM EDTLegal ZaoAvbure96/15/2023 6:58 PM EDTGender Identity Bquyhz1101/21/2023 8:01 PM EDTSexual DuzjkkwxdxvUwkiwgrd31/02/2023 8:01 PM EDT documented as of this encounter Plan of Treatment DateTypeDepartmentCare Team (Latest Contact Info)Tnebwqfhdsw21/16/2026 11:00 AM ESTProcedure Visit [facility] [address] [facility] [place] [phone] Ivan Abad, DO [address] [place] [address] documented as of this encounter Goals GoalPatient Goal TypeAssociated ProblemsRecent ProgressPatient-Stated?Author Reminders Care PlanOB RemindersNoOpen Scheduling, Backgrounddocumented as of this encounter Procedures Procedure NamePriorityDate/TimeAssociated DiagnosisCommentsUS OB BPP W NON-MDERFP1609/01/2023 8:33 AM EDT documented in this encounter Results * US OB BPP W NON-STRESS (09/01/2023 8:33 AM EDT)Anatomical Region LateralityModalityOtherSpecimen (Source)Anatomical Location / Laterality Collection Method / VolumeCollection TimeReceived Time09/01/2023 8:33 AM EDT Narrative 09/01/2023 8:35 AM EDT [facility] ?[address] ? [place] [id number] ? Ultrasound Report ? Signed ? Patient: AMY ALFARO ?MR#: [id number] ?? : 1980 ?Acct:[id number] ?? Age/Sex: 42 / F ?ADM Date: 09/01/23 ?? Loc: [facility] ??250-1 ? Attending Dr: Ivan Abad D.O. ? Ordering Physician: Ivan Abad D.O. ?? Date of Service: 09/01/23 ?? Procedure(s): US OB BPP w non-stress ?? Accession Number(s): [id number] ? cc: Ivan Abad D.O.; Cruz Rajan M.D. ? [facility] ? [address] ? [place] [address] ? Patient Name: ?? AMY ALFARO ? MRN: [id number] ? date: 1980 ?Sex: F ?? Assigned Patient Location: [facility] ?? Current Patient Location: [facility] ?? Accession/Order Number: [id number] ?? Exam Date: 09/01/2023 ??08:06 ?Report Date: [...] 0835 ? DD/ 0833 ? TD/TT: ? Pay Station Department Manager: Procedure Note Radiology, Radiologist, MD - 09/01/2023 [place] [address] Ultrasound Report Signed Patient: AMY ALFARO LMR#: [id number] : 1980Acct:[id number] Age/Sex: 42 / FADM Date: 09/01/23 Loc: [facility] 250-[address]: Ivan Abad D.O. Ordering Physician: Ivan Abad D.O. Date of Service: 09/01/23 Procedure(s): US OB BPP w non-stress Accession Number(s): [id number] cc: Ivan Abad D.O.; Cruz Rajan M.D. [facility] [place] [address] Patient Name: AMY ALFARO MRN: [id number] date: 1980 Sex: F Assigned Patient Location: [facility] Current Patient Location: [facility] Accession/Order Number: [id number] Exam Date: 09/01/2023 08:06 Report Date: 09/01/2023 [...] BATRES Date: 09/01/2023 08:33 Dictated By: Rimma Batrse M.D. Signed By:09/01/2335 DD/ 2 TD/TT: Pay Station Department Manager: Authorizing ProviderResult TypeResult StatusCorey Pollo DOCLINISYNC IMAGINGFinal Result documented in this encounter Visit Diagnoses Not on filedocumented in this encounter Additional Health Concerns Active ProblemsNoted DateDiagnosed DateOB Jiuofaiuh76/01/2023 documented as of this encounter Care Teams Team MemberRelationshipSpecialtyStart DateEnd Date Cruz Rajan MD [address] [place] [address] [facility]02/16/23documented as of this encounter
--- OUTSIDE RECORDS SUMMARY | 2025-05-01 13:48 | XMS_ITS | Encounter Summary ---
Author Organization [facility] Address [address] [place] [address] Care Team Providers Care Assayer Helper Name Role Phone Cruz Rajan MD Primary Care Provider [phone] Encounter Details DateTypeDepartmentCare Team (Latest Contact Info)Eaeskcggxpg45/03/2025linisync Result Encounter [facility] External Department Unsolicited aCmron Abad, DO [address] [place] [address] Social History Tobacco UseTypesPacks/DayYears UsedDateSmoking Tobacco: NeverSmokeless Tobacco: NeverAlcohol UseStandard Drinks/WeekCommentsNot Currently0 (1 standard drink = 0.6 oz pure alcohol)occasional alcohol use, Caffeine intake: none CommentsNoSex and Gender InformationValueDate RecordedSex Assigned at Nquovz9401/21/2023 8:01 PM EDTLegal KzhPuubag77/15/2023 6:58 PM EDTGender Identity Paigrp8001/21/2023 8:01 PM EDTSexual DsxvupndaloWraxbvvk13/02/2023 8:01 PM EDT documented as of this encounter Plan of Treatment DateTypeDepartmentCare Team (Latest Contact Info)Tgrpawxcgts85/16/2026 11:00 AM ESTProcedure Visit [facility] [address] [place] [phone] Camron Abad, DO [address] [place] [address] documented as of this encounter Goals GoalPatient Goal TypeAssociated ProblemsRecent ProgressPatient-Stated?Author Reminders Care PlanOB RemindersNoOpen Scheduling, Backgrounddocumented as of this encounter Procedures Procedure NamePriorityDate/TimeAssociated DiagnosisCommentsTBH PREG QUANT HCG Uadqyur9704/24/2025 10:55 AM EST ALL CBC WITH AUTO XTLTGpesbgb78/03/2025 10:55 AM EST documented in this encounter Results * TBH PREG QUANT HCG (04/24/2025 10:55 AM EST)ComponentValueRef RangeTest Method Analysis TimePerformed AtPathologist SignatureHCG UMBUGJRUKLZC78,968mIU/mLTBH Comment: 5-50 ? 0.2-1 WEEK 50-500 ? 1-2 WEEKS 100-5,000 ?2-3 WEEKS 500-10,000 ? 3-4 WEEKS 1,000-50,000 ?? 4-5 WEEKS 10,000-100,000 5-6 WEEKS 15,000-200,000 6-8 WEEKS 10,000-100,000 2-3 MONTHS Specimen (Source)Anatomical Location / LateralityCollection Method / Volume Collection TimeReceived Time04/24/2025 10:55 AM EST04/24/2025 10:56 AM EST Narrative [facility] - 04/24/2025 11:46 AM EST Authorizing ProviderResult TypeResult StatusCorey Pollo DOCLINISYNCFinal Result Performing OrganizationAddressCity/State/ZIP CodePhone Number [facility] * ALL CBC WITH AUTO DIFF (04/24/2025 10:55 AM EST)ComponentValueRef RangeTest MethodAnalysis TimePerformed AtPathologist SignatureTBH WBC8.34.0 - 11.0 10 3/uLTBHTBH RBC4.454.20 - 5.40 10 6/uLTBHTBH HGB13.912.0 - 16.0 g/dLTBHTBH HCT 41.136.0 - 48.0 %TBHTBH MCV92.481.0 - 99.0 fLTBHTBH MCH31.226.7 - 34.0 pgTBH TBH MCHC33.829.9 - 35.2 g/dLTBHTBH RDW13.611.0 - 15.0 %TBHTBH EVS061735 - 450 10 3/uLTBHTBH MPV10.19.5 - 13.5 fLTBHNEUTROPHILS PERCENT AUTO66.843.0 - 75.0 % TBHLYMPHOCYTES PERCENT AUTO24.520.5 - 60.0 %TBHMONOCYTES PERCENT AUTO6.41.7 - 12.0 %TBHTBH EO %1.70.9 - 7.0 %TBHBASOPHILS PERCENT AUTO0.40.2 - 2.0 %TBH IMMATURE GRANULOCYTES PCT AUTO0.20.0 - 0.5 %TBHNEUTROPHILS ABSOLUTE AUTO5.51.4 - 6.5 10 3/uLTBHLYMPHOCYTES ABSOLUTE AUTO2.01.2 - 3.8 10 3/uLTBHMONOCYTES ABSOLUTE AUTO0.50.3 - 0.8 10 3/uLTBHTBH EO #0.10.0 - 0.7 10 3/uLTBHBASOPHILS ABSOLUTE AUTO0.00.0 - 0.1 10 3/uLTBHIMMATURE GRANULOCYTES ABS AUTO0.020.00 - 0.03 10 3/uLTBHSpecimen (Source)Anatomical Location / LateralityCollection Method / VolumeCollection TimeReceived Time04/24/2025 10:55 AM EST04/24/2025 10:56 AM EST Narrative [facility] - 04/24/2025 11:02 AM EST Authorizing ProviderResult TypeResult StatusCorey Pollo DOCLINISYNCFinal Result Performing OrganizationAddressCity/State/ZIP CodePhone Number [facility] documented in this encounter Visit Diagnoses Not on filedocumented in this encounter Additional Health Concerns Active ProblemsNoted DateDiagnosed DateOB Okinuurbj51/01/2023 documented as of this encounter Care Teams Team MemberRelationshipSpecialtyStart DateEnd Date Cruz Rajan MD [address] [place] [address] PCP - [facility]02/16/23documented as of this encounter
--- OUTSIDE RECORDS SUMMARY | 2025-05-01 13:48 | XMS_ITS | Encounter Summary ---
Author Organization [facility] Address [address] [place] [address] Care Team Providers Care Vessel Liner Name Role Phone Cruz Rajan MD Primary Care Provider [phone] Encounter Details DateTypeDepartmentCare Team (Latest Contact Info)Fnnvjrqrlyv47/01/2024Clinisync Result Encounter [facility] External Department Unsolicited Ivan Abad, DO [address] [place] [address] Social History Tobacco UseTypesPacks/DayYears UsedDateSmoking Tobacco: NeverSmokeless Tobacco: NeverAlcohol UseStandard Drinks/WeekCommentsNot Currently0 (1 standard drink = 0.6 oz pure alcohol)occasional alcohol use, Caffeine intake: none CommentsYesSex and Gender InformationValueDate RecordedSex Assigned at Jwkfpg2101/21/2023 8:01 PM EDTLegal TsdDvlfjo95/15/2023 6:58 PM EDTGender Identity Geobih3201/21/2023 8:01 PM EDTSexual XwvzyuwgtaeRpkywfec61/02/2023 8:01 PM EDT documented as of this encounter Plan of Treatment DateTypeDepartmentCare Team (Latest Contact Info)Wylnlkrvkio72/16/2026 11:00 AM ESTProcedure Visit [facility] [address] [place] [phone] Ivan Abad, DO [address] [place] [address] documented as of this encounter Goals GoalPatient Goal TypeAssociated ProblemsRecent ProgressPatient-Stated?Author Reminders Care PlanOB RemindersNoOpen Scheduling, Backgrounddocumented as of this encounter Procedures Procedure NamePriorityDate/TimeAssociated DiagnosisCommentsUS OB BPP W NON-SPRCUH4108/21/2023 9:07 AM EST documented in this encounter Results * US OB BPP W NON-STRESS (08/21/2023 9:07 AM EST)Anatomical Region LateralityModalityOtherSpecimen (Source)Anatomical Location / Laterality Collection Method / VolumeCollection TimeReceived Time08/21/2023 9:07 AM EST Narrative 08/21/2023 9:10 AM EST [facility] ?[address] ? [place] [address] ? Ultrasound Report ? Signed ? Patient: AMY ALFARO ?MR#: [id number] ?? : 1980 ?Acct:[id number] ?? Age/Sex: 42 / F ?ADM Date: 08/21/23 ?? Loc: [facility] ??250-1 ? Attending Dr: Ivan Abad D.O. ? Ordering Physician: Ivan Abad D.O. ?? Date of Service: 08/21/23 ?? Procedure(s): US OB BPP w non-stress ?? Accession Number(s): [id number] ? cc: Ivan Abad D.O.; Cruz Rajan M.D. ? [facility] ? [address] ? [place] [address] ? Patient Name: ?? AMY ALFARO ? MRN: [id number] ? date: 1980 ?Sex: F ?? Assigned Patient Location: [facility] ?? Current Patient Location: [facility] ?? Accession/Order Number: [id number] ?? Exam Date: 08/21/2023 ??08:42 ?Report Date: [...] ?Rimma Batres M.D. ? Signed By: ?08/21/23 09 ? DD/ 0907 ? TD/TT: ? Navy Fighter Pilot: Procedure Note Radiology, Radiologist, MD - 08/26/2023 [place] [address] Ultrasound Report Signed Patient: AMY ALFARO LMR#: [id number] : 1980Acct:[id number] Age/Sex: 42 / FADM Date: 08/21/23 [facility]: Ivan Abad D.O. Ordering Physician: Ivan Abad D.O. Date of Service: 08/21/23 Procedure(s): US OB BPP w non-stress Accession Number(s): [id number] cc: Ivan Abad D.O.; Cruz Rajan M.D. [facility] [place] [address] Patient Name: AMY ALFARO MRN: [facility]:[id number] date: 1980 Sex: F [facility] Accession/Order Number: [id number] Exam Date: 08/21/2023 08:42 Report Date: 08/21/2023 [...] Batres M.D. Signed By:08/21/23909 DD/ 6 TD/TT: Navy Fighter Pilot: Authorizing ProviderResult TypeResult StatusCorey Pollo DOCLINISYNC IMAGINGFinal Result documented in this encounter Visit Diagnoses Not on filedocumented in this encounter Additional Health Concerns Active ProblemsNoted DateDiagnosed DateOB Kvjqsbjka56/01/2023 documented as of this encounter Care Teams Team MemberRelationshipSpecialtyStart DateEnd Date Cruz Rajan MD [address] [place] [address] [facility]02/16/23documented as of this encounter
--- OUTSIDE RECORDS SUMMARY | 2025-05-01 13:48 | XMS_ITS | Encounter Summary ---
Author Organization [facility] Address [address] [place] [address] Care Team Providers Care Environmental Science Instructor Name Role Phone Cruz Rajan MD Primary Care Provider [phone] Encounter Details DateTypeDepartmentCare Team (Latest Contact Info)Yqhwbujcljz92/14/2024Clinisync Result Encounter [facility] External Department Unsolicited Ivan Abad, DO [address] [place] [address] Social History Tobacco UseTypesPacks/DayYears UsedDateSmoking Tobacco: NeverSmokeless Tobacco: NeverAlcohol UseStandard Drinks/WeekCommentsNot Currently0 (1 standard drink = 0.6 oz pure alcohol)occasional alcohol use, Caffeine intake: none CommentsYesSex and Gender InformationValueDate RecordedSex Assigned at Gzrujr7601/21/2023 8:01 PM EDTLegal BvhRsiqub99/15/2023 6:58 PM EDTGender Identity Nhgvqc0901/21/2023 8:01 PM EDTSexual VsqldxrgeyzTbojbkyk35/02/2023 8:01 PM EDT documented as of this encounter Plan of Treatment DateTypeDepartmentCare Team (Latest Contact Info)Pksluwaytej32/16/2026 11:00 AM ESTProcedure Visit [facility] [address] [facility] [place] [phone] Ivan Abad, DO [address] [place] [address] documented as of this encounter Goals GoalPatient Goal TypeAssociated ProblemsRecent ProgressPatient-Stated?Author Reminders Care PlanOB RemindersNoOpen Scheduling, Backgrounddocumented as of this encounter Procedures Procedure NamePriorityDate/TimeAssociated DiagnosisCommentsUS OB BPP W NON-MSULUY0808/05/2023 7:16 AM EST documented in this encounter Results * US OB BPP W NON-STRESS (08/05/2023 7:16 AM EST)Anatomical Region LateralityModalityOtherSpecimen (Source)Anatomical Location / Laterality Collection Method / VolumeCollection TimeReceived Time08/05/2023 7:16 AM EST Narrative 08/05/2023 7:19 AM EST [facility] ?[address] ? [place] [address] ? Ultrasound Report ? Signed ? Patient: AMY ALFARO ?MR#: [id number] ?? : 1980 ?Acct:[id number] ?? Age/Sex: 42 / F ?ADM Date: 08/04/23 ?? Loc: US ? Attending Dr: Ivan Abad D.O. ? Ordering Physician: Ivan Abad D.O. ?? Date of Service: 08/04/23 ?? Procedure(s): US OB BPP w non-stress ?? Accession Number(s): [id number] ? cc: Ivan Abad D.O.; Cruz Rajan M.D. ? [facility] ? [address] ? [place] [address] ? Patient Name: ?? AMY LIMNER ? MRN: [id number] ? date: 1980 ?Sex: F ?? Assigned Patient Location: [facility] ?? Current Patient Location: ? Accession/Order Number: [id number] ?? Exam Date: 08/04/2023 ??20:12 ?Report Date: [...] ?08/05/23718 ? DD/ 0716 ? TD/TT: ? Manager Division: Procedure Note Radiology, Radiologist, MD - 08/05/2023 [place] [address] Ultrasound Report Signed Patient: AMY ALFARO LMR#: [id number] : 1980Acct:[id number] Age/Sex: 42 / FADM Date: 08/04/23 Loc: US Attending Dr: Ivan Abad D.O. Ordering Physician: Ivan Abad D.O. Date of Service: 08/04/23 Procedure(s): US OB BPP w non-stress Accession Number(s): [id number] cc: Ivan Abad D.O.; Cruz Rajan M.D. The [place] [id number] Patient Name: AMY ALFARO MRN: [id number] date: 1980 Sex: F Assigned Patient Location: [facility] Current Patient Location: Accession/Order Number: [id number] Exam Date: 08/04/2023 20:12 Report Date: 08/05/2023 [...] Hurst M.D. Signed By:08/05/23718 DD/ 5 TD/TT: Manager Division: Authorizing ProviderResult TypeResult StatusCorey Pollo DOCLINISYNC IMAGINGFinal Result documented in this encounter Visit Diagnoses Not on filedocumented in this encounter Additional Health Concerns Active ProblemsNoted DateDiagnosed DateOB Ctgbwmxuz76/01/2023 documented as of this encounter Care Teams Team MemberRelationshipSpecialtyStart DateEnd Date Cruz Rajan MD [address] [place] [address] [facility] - [facility]02/16/23documented as of this encounter
--- OUTSIDE RECORDS SUMMARY | 2025-05-01 13:48 | XMS_ITS | Encounter Summary ---
Author Organization [facility] Address [address] [place] [address] Care Team Providers Care Residence Life Coordinator Name Role Phone Cruz Rajan MD Primary Care Provider [phone] Encounter Details DateTypeDepartmentCare Team (Latest Contact Info)Emqbypikhrk46/05/2024Clinisync Result Encounter [facility] External Department Unsolicited Ivan Abad, DO [address] [place] [address] Social History Tobacco UseTypesPacks/DayYears UsedDateSmoking Tobacco: NeverSmokeless Tobacco: NeverAlcohol UseStandard Drinks/WeekCommentsNot Currently0 (1 standard drink = 0.6 oz pure alcohol)occasional alcohol use, Caffeine intake: none CommentsYesSex and Gender InformationValueDate RecordedSex Assigned at Ckdeks8001/21/2023 8:01 PM EDTLegal HppRfevhj26/15/2023 6:58 PM EDTGender Identity Qlimel3401/21/2023 8:01 PM EDTSexual InlpebdmvczHjusglza46/02/2023 8:01 PM EDT documented as of this encounter Plan of Treatment DateTypeDepartmentCare Team (Latest Contact Info)Pixgsibgvau80/16/2026 11:00 AM ESTProcedure Visit [facility] [address] [facility] [place] [phone] Ivan Abad, DO [address] [place] [address] documented as of this encounter Goals GoalPatient Goal TypeAssociated ProblemsRecent ProgressPatient-Stated?Author Reminders Care PlanOB RemindersNoOpen Scheduling, Backgrounddocumented as of this encounter Procedures Procedure NamePriorityDate/TimeAssociated DiagnosisCommentsUS OB BPP W NON-ZSBBPT3508/25/2023 8:57 AM EST documented in this encounter Results * US OB BPP W NON-STRESS (08/25/2023 8:57 AM EST)Anatomical Region LateralityModalityOtherSpecimen (Source)Anatomical Location / Laterality Collection Method / VolumeCollection TimeReceived Time08/25/2023 8:57 AM EST Narrative 08/25/2023 9:00 AM EST [facility] ?[address] ? [place] [address] ? Ultrasound Report ? Signed ? Patient: AMY ALFARO ?MR#: [id number] ?? : 1980 ?Acct:[id number] ?? Age/Sex: 42 / F ?ADM Date: 08/25/23 ?? Loc: US ? Attending Dr: Ivan Abad D.O. ? Ordering Physician: Ivan Abad D.O. ?? Date of Service: 08/25/23 ?? Procedure(s): US OB BPP w non-stress ?? Accession Number(s): [id number] ? cc: Ivan Abad D.O.; Cruz Rajan M.D. ? [facility] ? [address] ? [place] [address] ? Patient Name: ?? AMY LIMNER ? MRN: [id number] ? date: 1980 ?Sex: F ?? Assigned Patient Location: [facility] ?? Current Patient Location: ? Accession/Order Number: [id number] ?? Exam Date: 08/25/2023 ??08:02 ?Report Date: [...] 0900 ? DD/ 0857 ? TD/TT: ? Can Dragger: Procedure Note Radiology, Radiologist, MD - 08/25/2023 [place] [address] Ultrasound Report Signed Patient: AMY ALFARO LMR#: [id number] : 1980Acct:[id number] Age/Sex: 42 / FADM Date: 08/25/23 Loc: US Attending Dr: Ivan Abad D.O. Ordering Physician: Ivan Abad D.O. Date of Service: 08/25/23 Procedure(s): US OB BPP w non-stress Accession Number(s): [id number] cc: Ivan Abad D.O.; Cruz Rajan M.D. The [place] [id number] Patient Name: AMY ALFARO MRN: [id number] date: 1980 Sex: F Assigned Patient Location: [facility] Current Patient Location: Accession/Order Number: [id number] Exam Date: 08/25/2023 08:02 Report Date: 08/25/2023 [...] Batres M.D. Signed By:08/25/23899 DD/ 6 TD/TT: Can Dragger: Authorizing ProviderResult TypeResult StatusCorey Pollo DOCLINISYNC IMAGINGFinal Result documented in this encounter Visit Diagnoses Not on filedocumented in this encounter Additional Health Concerns Active ProblemsNoted DateDiagnosed DateOB Crtwsakzo40/01/2023 documented as of this encounter Care Teams Team MemberRelationshipSpecialtyStart DateEnd Date Cruz Rajan MD [address] [place] [address] [facility] - [facility]02/16/23documented as of this encounter
--- OUTSIDE RECORDS SUMMARY | 2025-05-01 13:48 | XMS_ITS | Encounter Summary ---
Author Organization [facility] Address [address] [place] [address] Care Team Providers Care Health It Specialist Name Role Phone Cruz Rajan MD Primary Care Provider [phone] Encounter Details DateTypeDepartmentCare Team (Latest Contact Info)Bhjlxqmhijt67/01/2024Clinisync Result Encounter [facility] External Department Unsolicited Ivan Abad, DO [address] [place] [address] Social History Tobacco UseTypesPacks/DayYears UsedDateSmoking Tobacco: NeverSmokeless Tobacco: NeverAlcohol UseStandard Drinks/WeekCommentsNot Currently0 (1 standard drink = 0.6 oz pure alcohol)occasional alcohol use, Caffeine intake: none CommentsYesSex and Gender InformationValueDate RecordedSex Assigned at Vrsgzl9701/21/2023 8:01 PM EDTLegal XuaSbfoku14/15/2023 6:58 PM EDTGender Identity Lltfoj6201/21/2023 8:01 PM EDTSexual HrekzhldotuJrrkbrgn25/02/2023 8:01 PM EDT documented as of this encounter Plan of Treatment DateTypeDepartmentCare Team (Latest Contact Info)Cvnzcywhkop65/16/2026 11:00 AM ESTProcedure Visit [facility] [address] [place] [phone] Ivan bAad, DO [address] [place] [address] documented as of this encounter Goals GoalPatient [...] EST Narrative 07/23/2023 4:01 PM EST [facility] ?[address] ? [place] [address] ? Ultrasound Report ? Signed ? Patient: AMY ALFARO L ?MR#: [id number] ?? : 1980 ?Acct:[id number] ?? Age/Sex: 42 / F ?ADM Date: 07/23/23 ?? Loc: [facility] ? Attending Dr: Ivan Abad D.O. ? Ordering Physician: Ivan Abad D.O. ?? Date of Service: 07/23/23 ?? Procedure(s): US OB growth ?? Accession Number(s): [id number] ? cc: Ivan Abad D.O.; Cruz Rajan M.D. ? [facility] ? [address] [place] [address] ? [place] [address] ? Patient Name: ?? AMY ALFARO ? MRN: [facility]:[id number] ? date: 1980 ?Sex: F ?? Assigned Patient Location: [facility] ?? Current Patient Location: [facility] ?? Accession/Order Number: [id number] ?? Exam Date: 07/23/2023 ??15:00 ?Report Date: [...] Date: 07/23/2023 ??15:58 ? Dictated By: ?Tomas uHrst M.D. ? Signed By: ?07/23/23 1601 ? DD/ 1558 ? TD/TT: ? Finance Professor: Procedure Note Radiology, Radiologist, MD - 08/26/2023 [place] [address] Ultrasound Report Signed Patient: AMY ALFARO R#: [id number] : 1980Acct:[id number] Age/Sex: 42 / FADM Date: 07/23/23 Loc: [facility] Attending Dr: Ivan Abad D.O. Ordering Physician: Ivan Abad D.O. Date of Service: 07/23/23 Procedure(s): [facility] Accession Number(s): [id number] cc: Ivan Abad D.O.; Cruz Rajan M.D. The [address] [address] Patient Name: AMY ALFARO MRN: [id number] date: 1980 Sex: F Assigned Patient Location: [facility] Current Patient Location: [facility] Accession/Order Number: [id number] Exam Date: 07/23/2023 15:00 Report Date: 07/23/2023 [...] M.D. Signed By:07/23/23 1601 DD/ 1558 TD/TT: Finance Professor: Authorizing ProviderResult TypeResult StatusCoresalo Abad DOCLINISYNC IMAGINGFinal Result documented in this encounter Visit Diagnoses Not on filedocumented in this encounter Additional Health Concerns Active ProblemsNoted DateDiagnosed DateOB Pbvobqyne71/01/2023 documented as of this encounter Care Teams Team MemberRelationshipSpecialtyStart DateEnd Date Cruz Rajan MD [address] [place] [address] [facility] - [facility]02/16/23documented as of this encounter
--- OUTSIDE RECORDS SUMMARY | 2025-05-01 13:48 | XMS_ITS | Encounter Summary ---
Author Organization [facility] Address [address] [place] [address] Care Team Providers Care Airplane Dispatch Clerk Name Role Phone Cruz Rajan MD Primary Care Provider [phone] Encounter Details DateTypeDepartmentCare Team (Latest Contact Info)Evpeyfhdnbo56/29/2024Clinisync Result Encounter [facility] External Department Unsolicited Terese Aguila, ERIC [address] [facility] [place] [address] Social History Tobacco UseTypesPacks/DayYears UsedDateSmoking Tobacco: NeverSmokeless Tobacco: NeverAlcohol UseStandard Drinks/WeekCommentsNot Currently0 (1 standard drink = 0.6 oz pure alcohol)occasional alcohol use, Caffeine intake: none CommentsYesSex and Gender InformationValueDate RecordedSex Assigned at Liucet4801/21/2023 8:01 PM EDTLegal IxcCogkhr10/15/2023 6:58 PM EDTGender Identity Infhyi3501/21/2023 8:01 PM EDTSexual VjwdivlsczrHilefdyt41/02/2023 8:01 PM EDT documented as of this encounter Plan of Treatment DateTypeDepartmentCare Team (Latest Contact Info)Pfhyxgvrreg50/16/2026 11:00 AM ESTProcedure Visit [facility] [address] [facility] [place] [address] Camron Abad DO [address] [facility] [place] [address] documented as of this encounter Goals GoalPatient [...] EST Narrative 08/20/2023 11:49 AM EST [facility] ?[address] ? [place] [address] ? Ultrasound Report ? Signed ? Patient: AMY DOMÍNGUEZ L ?MR#: [id number] ?? : 1980 ?Acct:[id number] ?? Age/Sex: 42 / F ?ADM Date: 08/20/23 ?? Loc: [facility] ? Attending Dr: Terese Aguila ? Ordering Physician: Terese Aguila ?? Date of Service: 08/20/23 ?? Procedure(s): US OB growth ?? Accession Number(s): [id number] ? cc: Terese Aguila; Cruz Rajan M.D. ? [facility] ? [facility] ? [place] [address] ? Patient Name: ?? AMY DOMÍNGUEZ ? MRN: [facility]:[id number] ? date: 1980 ?Sex: F ?? Assigned Patient Location: [facility] ?? Current Patient Location: [facility] ?? Accession/Order Number: [id number] ?? Exam Date: 08/20/2023 ??11:06 ?Report Date: [...] 1149 ? DD/ 1146 ? TD/TT: ? Interior Paneler: Procedure Note Radiology, Radiologist, MD - 08/26/2023 The [place] [id number] Ultrasound Report Signed Patient: AMY DOMÍNGUEZ LMR#: [id number] : 1980Acct:[id number] Age/Sex: 42 / FADM Date: 08/20/23 Loc: [facility] Attending Dr: Terese Aguila Ordering Physician: Terese Aguila Date of Service: 08/20/23 Procedure(s): [facility] Accession Number(s): [id number] cc: Terese Aguila; Cruz Rajan M.D. The [address] [address] Patient Name: AMY DOMÍNGUEZ MRN: [id number] date: 1980 Sex: F Assigned Patient Location: [facility] Current Patient Location: [facility] Accession/Order Number: [id number] Exam Date: 08/20/2023 11:06 Report Date: 08/20/2023 [...] M.D. Signed By:08/20/23 1149 DD/ 1146 TD/TT: Interior Paneler: Authorizing ProviderResult TypeResult StatusTerese Aguila PACLINISYNC IMAGINGFinal Result documented in this encounter Visit Diagnoses Not on filedocumented in this encounter Additional Health Concerns Active ProblemsNoted DateDiagnosed DateOB Bhqgraniz96/01/2023 documented as of this encounter Care Teams Team MemberRelationshipSpecialtyStart DateEnd Date Cruz Rajan MD [address] [place] [address] [facility] - [facility]02/16/23documented as of this encounter
--- OUTSIDE RECORDS SUMMARY | 2025-05-01 13:48 | XMS_ITS | Encounter Summary ---
Author Organization [facility] Address [address] [place] [address] Care Team Providers Care Sale Professional Digital Marketing Name Role Phone Cruz Rajan MD Primary Care Provider [phone] Encounter Details DateTypeDepartmentCare Team (Latest Contact Info)Fxtbekscwxs12/10/2025amboo flowsheet [facility]y SPENCER [address] [place] [address] Camron Abad DO [address] [place] [address] Dr [address] [place], [place] [address] Social History Tobacco UseTypesPacks/DayYears UsedDateSmoking Tobacco: NeverSmokeless Tobacco: NeverAlcohol UseStandard Drinks/WeekCommentsNot Currently0 (1 standard drink = 0.6 oz pure alcohol)occasional alcohol use, Caffeine intake: none CommentsNoSex and Gender InformationValueDate RecordedSex Assigned at Gsjfnr5601/21/2023 8:01 PM EDTLegal PtlMrxxsj76/15/2023 6:58 PM EDTGender Identity Nzrmkl5101/21/2023 8:01 PM EDTSexual NsrnghzhproRzokxzsa62/02/2023 8:01 PM EDT documented as of this encounter Plan of Treatment DateTypeDepartmentCare Team (Latest Contact Info)Pvfxqiardxn86/16/2026 11:00 AM ESTProcedure Visit [facility] Korey SPENCER [address] [place] [address] Camron Abad DO [address] [place] [address] Franchesca Nair, [facility]11 documented as of this encounter Goals GoalPatient Goal TypeAssociated ProblemsRecent ProgressPatient-Stated?Author Reminders Care PlanOB RemindersNoOpen Scheduling, Backgrounddocumented as of this encounter Visit Diagnoses Not on filedocumented in this encounter Additional Health Concerns Active ProblemsNoted DateDiagnosed DateOB Fxnrmvacc53/01/2023 documented as of this encounter Care Teams Team MemberRelationshipSpecialtyStart DateEnd Date Cruz Rajan MD [address] [facility] [place] [address] PCP - General02/16/23documented as of this encounter
--- OUTSIDE RECORDS SUMMARY | 2025-05-01 13:48 | XMS_ITS | Clinical Summary ---
Author Organization [facility] Address [address] [facility] [[email or web address] [place] [address] Care Team Providers Care Motor Generator Set Operator Name Role Phone Cruz Rajan MD Primary Care Provider [phone] Allergies Active AllergyReactionsCriticalityNoted QhgyKbsyxygvWmzmcxbyevsGmnwv75/20/2014 AtuncTqefubf35/01/2023 Medications MedicationSigDispense QuantityRefillsLast FilledStart DateEnd DateStatus cetirizine (ZyrTEC) 10 MG tablet Take 10 mg by mouth DailyActive doxycycline (Vibramycin) 100 MG capsule Take 100 mg by mouth in the morning and 100 mg before bedtime.5Active benzonatate (Tessalon) 200 MG capsule every 8 (eight) hours5Active Active Problems ProblemNoted DateDiagnosed DateSmall for gestational age (SGA) ([facility]) 08/27/2023 Encounters DateTypeDepartmentCare GftiXyrofryqtip38/10/2025 10:00 AM ESTOffice Visit [facility] [place] [facility] [facility] [place] [address] Ivan Abad DO Well woman exam with routine gynecological exam; Encounter for screening mammogram for malignant neoplasm of breast; Miscarriage ([facility])5[place] [phone] Ivan Abad DO 04/30/20256004Lrqjpu22/03/2025Clinisync Result Encounter NOMS External Department Unsolicited Ivan Abad, 04/21/2025linisync Result Encounter NOMS External Department Unsolicited Ivan Abad, DO 04/20/2025 1:40 PM EDTOffice Visit [facility] [place] [facility] [address] [place] [address] Terese Andrea PA Missed ([facility])04/20/2025 12:30 PM EDTAncillary Procedure [facility] [place] [facility] [address] [facility] [address] Missed menses; Positive urine test ([facility])04/16/2025Travelfrom Last 3 Months Family History Medical HistoryRelationNameCommentsDiabetesFatherMultiple sclerosisMotherBreast cancerOtherCancerOtherDepressionOtherDiabetesOtherHeart diseaseOtherHypertension OtherRelationNameStatusCommentsFatherAliveMotherAliveOther Social History Tobacco UseTypesPacks/DayYears UsedDateSmoking Tobacco: NeverSmokeless Tobacco: Never Tobacco Cessation:Counseling Given: Not Answered Alcohol UseStandard Drinks/WeekCommentsNot Currently0 (1 standard drink = 0.6 oz pure alcohol)occasional alcohol use, Caffeine intake: noneCommentsNoSex and Gender InformationValueDate RecordedSex Assigned at EyrbmAqaaii83/02/2023 8:01 PM EDTLegal PwbElqhkv86/15/2023 6:58 PM EDTGender RqlzqoieRknziq41/02/2023 8:01 PM EDTSexual YcrqsqdxwzkEurxynvv21/02/2023 8:01 PM EDT Last Filed Vital Signs Vital SignReadingTime TakenCommentsBlood Kiwpihgy155/5805/01/2025 10:04 AM EST Pulse--Temperature--Respiratory Rate--Oxygen Saturation--Inhaled Oxygen Concentration--Tbzkjv26.8 kg (125 lb 1.9 oz)05/01/2025 10:04 AM CLFNgqnfj947 cm (5' 3 )05/01/2025 10:04 AM ESTBody Mass Index22.16107/01/2024 10:04 AM EST Plan of Treatment DateTypeDepartmentCare Team (Latest Contact Info)Pgufxamejhf37/16/2026 11:00 AM ESTProcedure Visit [facility] [place] [facility] [address] [place] [address] Ivan Abad, [address] [place] [address] Health MaintenanceDue DateLast DoneCommentsCT Tagibiowloxq58/29/1980Colonoscopy 1979Colorectal Cancer Khnyltzsb35/29/1980FIT-DNA1979FIT1979 FOBT1980 3705Uamadpotmutyv70/29/8961Ywmzwkaeq19/29/2020COVID-19 Vaccine ( season)503/11/2021, 07/21/2021Influenza Vaccine (#1)2025 03/22/2020Cervical Cancer Pmbphtcyp82/05/2029HPV/Mztmbm7604/26/2029Pap Smear /10/2023, 04/22/2023neumococcal Vaccine: Pediatrics (0 to 5 Years) and At-Risk Patients (6 to 64 Years)Aged OutNo longer eligible based on patient's age to complete this topic Goals GoalPatient Goal TypeAssociated ProblemsRecent ProgressPatient-Stated?Author Reminders Care PlanOB RemindersNoOpen Scheduling, Background Procedures Procedure NamePriorityDate/TimeAssociated DiagnosisCommentsTBH PREG QUANT HCG Uewkkcm1604/24/2025 10:55 AM EST ALL CBC WITH AUTO PFFVIiphwvl72/03/2025 10:55 AM EST ALL TYPE AND XCYMVHBwdfjyy99/31/2025 8:25 AM EDT ECG 12-LEAD04/21/2025 6:22 AM EDT US OB JYVGNTFRAZEZMtrbkjp87/30/2025 1:43 PM EDT Missed menses Positive urine test ([facility]) PAP NPBXBNojeffw24/05/2024 12:00 AM ESTfrom Last 3 Months or Most Recently Relevant to Health Maintenance Results * TBH PREG QUANT HCG (04/24/2025 10:55 AM EST)ComponentValueRef RangeTest Method Analysis TimePerformed AtPathologist SignatureHCG TAJFEGRGMBLB86,968mIU/mLTBH Comment: 5-50 ? 0.2-1 WEEK 50-500 ? [...] Pollo DOCLINISYNCFinal Result Performing OrganizationAddressCity/State/ZIP CodePhone Number [facility] * ALL CBC WITH AUTO DIFF (04/24/2025 10:55 AM EST)ComponentValueRef RangeTest MethodAnalysis TimePerformed AtPathologist SignatureTBH WBC8.34.0 - 11.0 10 3/uLTBHTBH RBC4.454.20 - 5.40 10 6/uLTBHTBH HGB13.912.0 - 16.0 g/dLTBHTBH HCT 41.136.0 - 48.0 %TBHTBH MCV92.481.0 - 99.0 fLTBHTBH MCH31.226.7 - 34.0 pgTBH TBH MCHC33.829.9 - 35.2 g/dLTBHTBH RDW13.611.0 - 15.0 %TBHTBH VKH515635 - 450 10 3/uLTBHTBH MPV10.19.5 - 13.5 [...] Pollo DOCLINISYNCFinal Result Performing OrganizationAddressCity/State/ZIP CodePhone Number [facility] * ALL TYPE AND SCREEN (04/21/2025 8:25 AM EDT)ComponentValueRef RangeTest Method Analysis TimePerformed AtPathologist SignatureBLOOD TYPEO PositiveTBHANTIBODY SCREENNEGATIVETBHSpecimen (Source)Anatomical Location / LateralityCollection Method / VolumeCollection TimeReceived Time04/21/2025 8:25 AM EDT1 8:30 AM EDT Narrative CLINISYNC - 04/21/2025 10:18 AM EDT [facility] , ?? Authorizing ProviderResult TypeResult StatusCorey Pollo DOCLINISYNCFinal Result Performing OrganizationAddressCity/State/ZIP CodePhone Number [facility] * ECG 12-LEAD (04/21/2025 6:22 AM EDT)Anatomical RegionLateralityModalityOther Specimen (Source)Anatomical Location / LateralityCollection Method / Volume Collection TimeReceived Time04/21/2025 6:22 AM EDT Narrative 04/21/2025 9:04 AM EDT [facility] ?[address] ? [place] [address] ? Electrocardiograph Report ? Signed ? Patient: AMY ALFARO L ?MR#: [id number] ?? : 1980 ?Acct:[id number] ?? Age/Sex: 44 / F ?ADM Date: 04/21/25 ?? Loc: PST ? Attending Dr: Ivan Abad D.O. ? Ordering Physician: Ivan Abad D.O. ?? Date of Service: 04/21/25 ?? Procedure(s): ECG 12 lead ?? Accession Number(s): [id number] ? cc: ?[facility] ? Test Date: ?2025-04-21 ?? Pat Name: ? AMY ALFARO ? Department: ? Room: ? - ?? Gender: ? Female ? Podiatric Physician: ? : ?1980 ? Requested By: IVAN ABAD ?? Order Number: [id number] ?Reading MD: ?? TYREL ??Jose F RICHMOND ? Measurements ?? Intervals ?[place] ? Rate: ? 47 ? P: ?19 ?? [place]: ? 131 ?QRS: ?58 ?? QRSD: ? 93 ? T: ?36 ?? QT: ? 420 ? QTc: ?373 ? Interpretive Statements ?? SINUS BRADYCARDIA ?? Borderline ECG ?? No previous ECG available for comparison ?? Electronically Signed On 04-21-2025 9:03:40 EDT by TYREL ??Jose F RICHMOND ? Dictated By: ?TYREL RICHMOND ? Signed By: ?04/21/25 0904 ? DD/ 0622 ? TD/TT: ? Jewel Staker: Procedure Note Radiology, Radiologist, - 04/21/2025 [place] [address] Electrocardiograph Report Signed Patient: AMY ALFARO LMR#: [id number] : 1980Acct:[id number] Age/Sex: 44 / FADM Date: 04/21/25 Loc: PST Attending Dr: Ivan Abad D.O. Ordering Physician: Ivan Abad D.O. Date of Service: 04/21/25 Procedure(s): ECG 12 lead Accession Number(s): [id number] cc: [facility] Test Date: 2025-04-21 Pat Name: AMY ALFARO Department: Room: - Gender: Female Podiatric Physician: : 1980 Requested By: IVAN ABAD Order Number: [id number] Jose MD: TYREL RICHMOND M.D. Measurements Intervals [place] Rate: 47 P: 19 [place]: 131 QRS: 58 QRSD: 93 T: 36 QT: 420 QTc: 373 Interpretive Statements SINUS BRADYCARDIA Borderline ECG No previous ECG available for comparison Electronically Signed On 04-21-2025 9:03:40 EDT by TYREL RICHMOND M.D. Dictated By: TYREL RICHMOND Signed By:04/21/25 0904 DD/ 0622 TD/TT: Jewel Staker: Authorizing ProviderResult TypeResult StatusCorey Pollo DOCLINISYNC IMAGINGFinal Result * US OB transvaginal (04/20/2025 1:43 PM EDT)Anatomical RegionLateralityModality BodyUltrasoundSpecimen (Source)Anatomical Location / LateralityCollection Method / VolumeCollection TimeReceived Time04/20/2025 2:45 PM EDT Impressions 04/20/2025 3:23 PM EDT Single intrauterine gestational sac with a single pole, absence of cardiac activity questions viability at this time. Correlate with serial beta hCG and SODA FLAKER consultation. TRANSCRIBED BY: ? ELECTRONICALLY SIGNED BY: [...] this time. Correlate with serialbeta hCG and SODA FLAKER consultation. TRANSCRIBED BY: ELECTRONICALLY SIGNED BY: Donald [...] Additional Health Concerns Active ProblemsNoted DateDiagnosed DateOB Eudcvzfrw80/01/2023 Insurance Care Teams Team MemberRelationshipSpecialtyStart DateEnd Cruz Rajan MD [address] [place] [address] PCP - [facility]02/16/23
--- OUTSIDE RECORDS SUMMARY | 2025-05-01 13:48 | XMS_ITS | Encounter Summary ---
Author Organization [facility] Address [address] [place] [address] Care Team Providers Care Ornamental Rail Installer Name Role Phone Cruz Rajan MD Primary Care Provider [phone] Encounter Details DateTypeDepartmentCare Team (Latest Contact Info)Mimdvyheqkb22/20/2024Clinisync Result Encounter [facility]OMS External Department Unsolicited Ivan Abad, DO [address] [place] [address] Social History Tobacco UseTypesPacks/DayYears UsedDateSmoking Tobacco: NeverSmokeless Tobacco: NeverAlcohol UseStandard Drinks/WeekCommentsNot Currently0 (1 standard drink = 0.6 oz pure alcohol)occasional alcohol use, Caffeine intake: none CommentsYesSex and Gender InformationValueDate RecordedSex Assigned at Kequzz1801/21/2023 8:01 PM EDTLegal VkfDxzptt91/15/2023 6:58 PM EDTGender Identity Zgyfzx1101/21/2023 8:01 PM EDTSexual DzzolwxvcdrDrphkpfc88/02/2023 8:01 PM EDT documented as of this encounter Plan of Treatment DateTypeDepartmentCare Team (Latest Contact Info)Ibeqarpyati08/16/2026 11:00 AM ESTProcedure Visit [facility] [place] [facility] [address] [facility] [place] [phone] [place] Abad, DO [address] [place] [address] documented as of this encounter Goals GoalPatient Goal TypeAssociated ProblemsRecent ProgressPatient-Stated?Author Reminders Care PlanOB RemindersNoOpen Scheduling, Backgrounddocumented as of this encounter Procedures Procedure NamePriorityDate/TimeAssociated DiagnosisCommentsUS OB BPP W NON-YPUCFC6808/11/2023 3:35 PM EST documented in this encounter Results * US OB BPP W NON-STRESS (08/11/2023 3:35 PM EST)Anatomical Region LateralityModalityOtherSpecimen (Source)Anatomical Location / Laterality Collection Method / VolumeCollection TimeReceived Time08/11/2023 3:35 PM EST Narrative 08/11/2023 4:47 PM EST [facility] ?[address] ? [place] [address] ? Ultrasound Report ? Signed ? Patient: AMY ALFARO ?MR#: [id number] ?? : 1980 ?Acct:[id number] ?? Age/Sex: 42 / F ?ADM Date: 08/11/23 ?? Loc: US ? Attending Dr: Ivan Abad D.O. ? Ordering Physician: Ivan Abad D.O. ?? Date of Service: 08/11/23 ?? Procedure(s): US OB BPP w non-stress ?? Accession Number(s): [id number] ? cc: Ivan Abad D.O.; Cruz Rajan M.D. ? [facility] ? [address] ? [place] [address] ? Patient Name: ?? AMY L ALFARO ? MRN: TBH:[id number] ? date: 1980 ?Sex: F ?? Assigned Patient Location: FBC ?? Current Patient Location: ? Accession/Order Number: [id number] ?? Exam Date: 08/11/2023 ??15:02 ?Report Date: [...] By: ?Tomas Hurst M.D. ? Signed By: ?08/11/237 ? DD/ 1535 ? TD/TT: ? Head Housekeeper: Procedure Note Radiology, Radiologist, MD - 08/26/2023 [place] [address] Ultrasound Report Signed Patient: AMY ALFARO LMR#: [id number] : 1980Acct:[id number] Age/Sex: 42 / FADM Date: 08/11/23 Loc: US Attending Dr: Ivan Abad D.O. Ordering Physician: Ivan Abad D.O. Date of Service: 08/11/23 Procedure(s): US OB BPP w non-stress Accession Number(s): [id number] cc: Ivan Abad D.O.; Cruz Rajan M.D. The [address] [address] Patient Name: AMY ALFARO MRN: [facility]:[id number] date: 1980 Sex: F Assigned Patient Location: [facility] Current Patient Location: Accession/Order Number: [id number] Exam Date: 08/11/2023 15:02 Report Date: 08/11/2023 [...] Dictated By: Tomas Hurst M.D. Signed By:08/11/23 0657 DD/ 1535 TD/TT: Head Housekeeper: Authorizing ProviderResult TypeResult StatusCorey Pollo DOCLINISYNC IMAGINGFinal Result documented in this encounter Visit Diagnoses Not on filedocumented in this encounter Additional Health Concerns Active ProblemsNoted DateDiagnosed DateOB Ezunbgkdi17/01/2023 documented as of this encounter Care Teams Team MemberRelationshipSpecialtyStart DateEnd Date Cruz Rajan MD [address] [place] [address] [facility] - [facility]02/16/23documented as of this encounter
--- OUTSIDE RECORDS SUMMARY | 2025-05-01 13:48 | XMS_ITS | Encounter Summary ---
Author Organization [facility] Address [address] [place] [address] Care Team Providers Care Wine Cellar Worker Name Role Phone Cruz Rajan MD Primary Care Provider [phone] Encounter Details DateTypeDepartmentCare Team (Latest Contact Info)Hrvpryhcemy04/19/2024Clinisync Result Encounter NOMS External Department Unsolicited Ivan Abad, DO [address] [place] [address] Social History Tobacco UseTypesPacks/DayYears UsedDateSmoking Tobacco: NeverSmokeless Tobacco: NeverAlcohol UseStandard Drinks/WeekCommentsNot Currently0 (1 standard drink = 0.6 oz pure alcohol)occasional alcohol use, Caffeine intake: none CommentsYesSex and Gender InformationValueDate RecordedSex Assigned at Xxxsxm8801/21/2023 8:01 PM EDTLegal EsbHvjiqd16/15/2023 6:58 PM EDTGender Identity Upnrpv4001/21/2023 8:01 PM EDTSexual LxywtzhkxowCrukzuhm19/02/2023 8:01 PM EDT documented as of this encounter Plan of Treatment DateTypeDepartmentCare Team (Latest Contact Info)Clxyilbyijo46/16/2026 11:00 AM ESTProcedure Visit [facility] [place] [facility] [address] [facility] [place] [phone] [place] Abad, DO [address] [place] [address] documented as of this encounter Goals GoalPatient Goal TypeAssociated ProblemsRecent ProgressPatient-Stated?Author Reminders Care PlanOB RemindersNoOpen Scheduling, Backgrounddocumented as of this encounter Procedures Procedure NamePriorityDate/TimeAssociated DiagnosisCommentsTBH DRUG SCREEN RAPID (URINE)Zvszmdr6509/08/2023 10:45 AM EDT HMHP CBC WITH PLATELET NO UIILCQPWCQXXKjobeyq80/19/2024 10:45 AM EDT US OB BPP W NON-GDNBNM7209/08/2023 9:57 AM EDT documented in this encounter [...] OrganizationAddressCity/State/ZIP CodePhone Number [facility] * (ABNORMAL) [facility] CBC WITH PLATELET NO DIFFERENTIAL (09/08/2023 10:45 AM EDT) ComponentValueRef RangeTest MethodAnalysis TimePerformed AtPathologist SignatureTBH WBC7.74.0 - 11.0 10 3/uLTBHTBH RBC3.86(L)4.20 - 5.40 10 6/uLTBH TBH HGB11.8(L)12.0 - 16.0 g/dLTBHTBH HCT35.9(L)36.0 - 48.0 %TBHTBH MCV93.081.0 - 99.0 fLTBHTBH MCH30.626.7 - 34.0 pgTBHTBH MCHC32.929.9 - 35.2 g/dLTBHTBH RDW 14.711.0 - 15.0 %TBHTBH DZS686415 - 450 10 3/uLTBHTBH MPV11.69.5 - 13.5 fLTBH Specimen (Source)Anatomical Location / LateralityCollection Method / Volume Collection TimeReceived Time09/08/2023 10:45 AM EDT09/08/2023 11:24 AM EDT Narrative [facility] - 09/08/2023 12:01 PM EDT Authorizing ProviderResult TypeResult StatusCorey Pollo DOCLINISYNCFinal Result Performing OrganizationAddressCity/State/ZIP CodePhone Number [facility] * OB BPP W NON-STRESS (09/08/2023 9:57 AM EDT)Anatomical Region LateralityModalityOtherSpecimen (Source)Anatomical Location / Laterality Collection Method / VolumeCollection TimeReceived Time09/08/2023 9:57 AM EDT Narrative 09/08/2023 9:59 AM EDT [facility] ?[address] ? [place] [address] ? Ultrasound Report ? Signed ? Patient: AMY ALFARO ?MR#: [id number] ?? : 1980 ?Acct:[id number] ?? Age/Sex: 42 / F ?ADM Date: //24 ?? Loc: FBC ??250-1 ? Attending Dr: Ivan Abad D.O. ? Ordering Physician: Ivan Abad D.O. ?? Date of Service: 09/08/23 ?? Procedure(s): US OB BPP w non-stress ?? Accession Number(s): [id number] ? cc: Ivan Abad D.O.; Cruz Rajan M.D. ? [facility] ? [address] ? [place] [address] ? Patient Name: ?? AMY ALFARO ? MRN: [facility]:[id number] ? date: 1980 ?Sex: F ?? Assigned Patient Location: FBC ?? Current Patient Location: FBC ?? Accession/Order Number: [id number] ?? Exam Date: 09/08/2023 ??08:06 ?Report Date: [...] ? Signed By: ?09/08/23 0959 ? DD/ 6 ? TD/TT: ? Sales And In Home Delivery Specialist: Procedure Note Radiology, Radiologist, MD - 09/08/2023 [place] [address] Ultrasound Report Signed Patient: AMY ALFARO LMR#: [id number] : 1980Acct:[id number] Age/Sex: 42 / FADM Date: 09/08/23 Loc: [facility] 250-[address]: Ivan Abad D.O. Ordering Physician: Ivan Abad D.O. Date of Service: 09/08/23 Procedure(s): US OB BPP w non-stress Accession Number(s): [id number] cc: Ivan Abad D.O.; Cruz Rajan M.D. [place] [id number] Patient Name: AMY ALFARO MRN: [facility]:[id number] date: 1980 Sex: F Assigned Patient Location: [facility] Current Patient Location: [facility] Accession/Order Number: [id number] Exam Date: 09/08/2023 08:06 Report Date: 09/08/2023 [...] BATRES Date: 09/08/2023 09:57 Dictated By: Rimma Batres M.D. Signed By:09/08/2359 DD/ 6 TD/TT: Sales And In Home Delivery Specialist: Authorizing ProviderResult TypeResult StatusCorey Pollo DOCLINISYNC IMAGINGFinal Result documented in this encounter Visit Diagnoses Not on filedocumented in this encounter Additional Health Concerns Active ProblemsNoted DateDiagnosed DateOB Xjnxrobfl46/01/2023 documented as of this encounter Care Teams Team MemberRelationshipSpecialtyStart DateEnd Date Cruz Rajan MD [address] [place] [address] [facility] - [facility]02/16/23documented as of this encounter
--- OUTSIDE RECORDS SUMMARY | 2025-05-01 13:48 | XMS_ITS | Encounter Summary ---
Author Organization [facility] Address [address] [place] [address] Care Team Providers Care Dental Ceramist Helper Name Role Phone Cruz Rajan MD Primary Care Provider [phone] Encounter Details DateTypeDepartmentCare Team (Latest Contact Info)Vmkqcepiywj55/27/2024Clinisync Result Encounter NOMS External Department Unsolicited Ivan Abad, DO [address] [place] [address] Social History Tobacco UseTypesPacks/DayYears UsedDateSmoking Tobacco: NeverSmokeless Tobacco: NeverAlcohol UseStandard Drinks/WeekCommentsNot Currently0 (1 standard drink = 0.6 oz pure alcohol)occasional alcohol use, Caffeine intake: none CommentsYesSex and Gender InformationValueDate RecordedSex Assigned at Xgnotj8801/21/2023 8:01 PM EDTLegal FkiEqrwax68/15/2023 6:58 PM EDTGender Identity Vaauxi9901/21/2023 8:01 PM EDTSexual BlbgfraynkvAwheclkr20/02/2023 8:01 PM EDT documented as of this encounter Plan of Treatment DateTypeDepartmentCare Team (Latest Contact Info)Mxadfjevmth35/16/2026 11:00 AM ESTProcedure Visit [facility] [place] [facility] [address] [facility] [place] [phone] Ivan Abad, DO [address] [place] [address] documented as of this encounter Goals GoalPatient Goal TypeAssociated ProblemsRecent ProgressPatient-Stated?Author Reminders Care PlanOB RemindersNoOpen Scheduling, Backgrounddocumented as of this encounter Procedures Procedure NamePriorityDate/TimeAssociated DiagnosisCommentsUS OB BPP W NON-WCZZGW6708/18/2023 3:33 PM EST documented in this encounter Results * US OB BPP W NON-STRESS (08/18/2023 3:33 PM EST)Anatomical Region LateralityModalityOtherSpecimen (Source)Anatomical Location / Laterality Collection Method / VolumeCollection TimeReceived Time08/18/2023 3:33 PM EST Narrative 08/18/2023 3:36 PM EST The [facility] ?[address] ? [place] [address] ? Ultrasound Report ? Signed ? Patient: AMY ALFARO ?MR#: [id number] ?? : 1980 ?Acct:[id number] ?? Age/Sex: 42 / F ?ADM Date: 08/18/23 ?? Loc: FBC ??250-1 ? Attending Dr: Ivan Abad D.O. ? Ordering Physician: Ivan Abad D.O. ?? Date of Service: 08/18/23 ?? Procedure(s): US OB BPP w non-stress ?? Accession Number(s): [id number] ? cc: Ivan Abad D.O.; Cruz Rajan M.D. ? [facility] ? [address] ? [place] [address] ? Patient Name: ?? AMY ALFARO ? MRN: [facility]:[id number] ? date: 1980 ?Sex: F ?? Assigned Patient Location: ?? Current Patient Location: US ?? Accession/Order Number: [id number] ?? Exam Date: 08/18/2023 ??15:05 ?Report Date: [...] ?08/18/231535 ? DD/ 1533 ? TD/TT: ? Paddock Judge: Procedure Note Radiology, Radiologist, - 08/26/2023 [place] [address] Ultrasound Report Signed Patient: AMY ALFARO LMR#: [id number] : 1980Acct:[id number] Age/Sex: 42 / FADM Date: 08/18/23 Loc: [facility] 250-[address]: Ivan Abad D.O. Ordering Physician: Ivan Abad D.O. Date of Service: 08/18/23 Procedure(s): US OB BPP w non-stress Accession Number(s): [id number] cc: Ivan Abad D.O.; Cruz Rajan M.D. The [place] [id number] Patient Name: AMY ALFARO MRN: [facility]:[id number] date: 1980 Sex: F Assigned Patient Location: US Current Patient Location: US Accession/Order Number: [id number] Exam Date: 08/18/2023 15:05 Report Date: 08/18/2023 [...] Batres M.D. Signed By:08/18/231535 DD/ 32 TD/TT: Paddock Judge: Authorizing ProviderResult TypeResult StatusCorey Pollo DOCLINISYNC IMAGINGFinal Result documented in this encounter Visit Diagnoses Not on filedocumented in this encounter Additional Health Concerns Active ProblemsNoted DateDiagnosed DateOB Adeaftvro61/01/2023 documented as of this encounter Care Teams Team MemberRelationshipSpecialtyStart DateEnd Date Cruz Rajan MD [address] [place] [address] [facility] - [facility]02/16/23documented as of this encounter
--- OUTSIDE RECORDS SUMMARY | 2025-05-01 13:48 | XMS_ITS | Clinical Summary ---
Author Organization [facility] Address [address] [place] [address] Care Team Providers Care Production Proofreader Name Role Phone Abel Patel DO Primary Care Provider Raven Romo Unavailable Allergies Active AllergyReactionsCriticalityNoted DateCommentsSeasonal AllergiesCough 05/11/2014 Medications MedicationSigDispense QuantityRefillsLast FilledStart DateEnd DateStatus multivitamin (DAILY MULTIPLE) tablet Take 1 tablet by mouth once daily.Active Cetirizine (ZYRTEC) 10 mg cap Take 1 capsule by mouth as needed. Active fluticasone (FLONASE) 50 mcg/actuation nasal spray Indications:Bilateral sensorineural hearing loss,Autoimmune disorder of inner earUse 1 Hopkins in each nostril as needed. Active DOCUSATE SODIUM (COLACE ORAL) Take 1 tablet by mouth as needed.Active predniSONE (DELTASONE) 10 mg tablet Take by mouth four (4) tabs x3 days; then three (3) tabs x3days; then two (2) tabs x3 days; then one (1) tab a day x3 days 30 tablet 09/02/2017Active Active Problems ProblemNoted DateDiagnosed DateCochlear implant follow-up09/29/2017Sensorineural hearing loss, neufgzojjkhs13/09/2018Sensorineural hearing loss, bilateral 10/15/2016Vertigo of central zhbzkx4205/24/2014Peripheral vertigo, unspecified 05/24/2014Left-sided sensorineural hearing loss Immunizations [...] RecordedNational Score (1-100), lower number is lower piml196407/21/2023State Score (1-10), lower number is lower risk5 07/21/2023ata from: https://www.neighborhoodatlas.[facility].edu/. Last address used for prvleqvgtea29 [facility]4CommentsNoSex and Gender InformationValueDate RecordedSex Assigned at YgjrwFbaseb00/25/2021 6:25 PM EDTLegal AhyMddsqw21/02/2012 8:33 AM ESTGender WtpjxjkhNnodyn99/25/2021 6:25 PM EDTSexual GdoccpvzfehObnyrnal23/25/2021 6:25 PM EDT Last Filed Vital Signs Vital SignReadingTime TakenCommentsBlood Rwaptzzi420/7003 1:30 PM EDT Ddhde6860 1:30 PM TXAAbwmvubgwty48.6 ??C (97.9 ??F)09/02/2017 1:00 PM EDTRespiratory Cdti823509/02/2017 1:30 PM EDTOxygen Dzxezqaflw92%09/02/2017 1:30 PM EDTInhaled Oxygen Concentration--Gnqzeq49.3 kg (113 lb)08/13/2017 10:36 AM NDCJyuvsi477 cm (5' 3 )08/13/2017 10:36 AM ESTBody Mass Index20.02008/13/2017 10:36 AM EST Plan of Treatment DateTypeDepartmentCare Team (Latest Contact Info)Knqkazdwugy99/29/2026 2:00 PM ESTOffice Visit Audiology [address] [facility] [address] [place] [address] Raven Romo, AUD [address] [place], [place] [id number] CI follow up07/20/2025 3:30 PM ESTOffice Visit Otolaryngology [address] [facility] [address] [place] [address] Eliezer Becker PA-C [address] [address] CI CheckHealth MaintenanceDue DateLast DoneCommentsAnxiety Hcfxtkmlm62/29/1998 Depression Feokctemq51/29/1998HIV Dwhapfkdm32/29/1998Hepatitis C Screening 11/17/1997Hepatitis B Vaccine (1 of 3 - 19+ 3-dose series)11/17/1998Cervical Cancer Lrzldnhdo75/29/2001HPV Vaccine (1 - 3-dose SCDM series)11/17/2006 Mammogram Puhjmsbgb60/29/2020CT Iewyhwuxfbjm86/29/2025ologuard (FIT-DNA) 11/17/20243931Qanztxwtrex10/29/2025olorectal Cancer Aciseudcr02/29/2025Diabetes Nizvcngfw81/29/99674008/13/2017Fecal Occult Blood11/17/2024Lipid Screening 11/17/20243986Xwjxrpebdlsqo90/29/2025ovid-19 Vaccine ( season)2025 08/25/2021, 07/21/2021Influenza Vaccine (#1)Pneumococcal Vaccine (3 of 3 - PCV20 or PCV21), 08/10/2014DTaP,Tdap,Td Vaccine (3 - Td or Tdap), 08/20/2020 Medical Devices ImplantedTypeAreaManufacturerDevice IdentifierShelf Expiration DateModel / Serial / LotImplant Nucleus Cochlear Slim Modiolar Electrode [id number] Sterile Latex Free - [id number] Im[facility]ed:[facility]ImplantLeft: EarCOCHLEAR 07/16/[id number] / / [id number]-Nl-Y-Rhep Implant - [id number] Implanted:Qty: 1 on [facility]02/2017 [id number] / / Description:[employer] Procedures Procedure NamePriorityDate/TimeAssociated DiagnosisCommentsBASIC METABOLIC PANEL Pjtsaoi3608/13/2017 11:26 AM EST Pre-operative examination Sensorineural hearing loss (SNHL) of left ear, unspecified hearing status on contralateral side from Last 3 Months or Most Recently Relevant to Health Maintenance Results * BASIC METABOLIC PNL (08/13/2017 11:26 AM EST)ComponentValueRef RangeTest MethodAnalysis TimePerformed AtPathologist EmvihedzzJieiknd7383 - 99 mg/dL 08/13/2017 2:26 PM ESTOHIOHEALTH [facility]AN [facility] MAIN LABORATORYComment: The [place] Diabetes Association (ADA) provides guidance for cutoff [...] Standards of Medical Care in Diabetes 2016, [place] Diabetes Association. Diabetes Care. 2016.39(Suppl 1). JCD338 - 21 mg/dL08/13/2017 2:26 PM [facility] Creatinine0.830.58 - 0.96 mg/dL08/13/2017 2:26 PM [facility] AXUTHRKBVZDefpje267642 - 144 mmol/L08/13/2017 2:26 PM [facility] LABORATORYPotassium4.63.7 - 5.1 mmol/L08/13/2017 2:26 PM [facility] RYGTALJZUAWveizqgm21731 - 105 mmol/L08/13/2017 2:26 PM [facility] JXFWOYDVYEHB23690 - 30 mmol/L08/13/2017 2:26 PM [facility] LABORATORYAnion Mjp771 - 18 mmol/L08/13/2017 2:26 PM [facility] LABORATORYCalcium9.18.5 - 10.2 mg/dL08/13/2017 2:26 PM [facility] LABORATORYeGFR->6002 2:26 PM [facility] LABORATORYeGFR-All Other Races>60.08/13/2017 2:26 PM [facility] LABORATORYComment: eGFR (Estimated GFR) Units of measure: [...] StatusGisellpatricia Knutson MDLABORATORYFinal ResultPerforming OrganizationAddressCity/State/ZIP CodePhone Number [facility] [address] [place] [address] from Last 3 Months or Most Recently Relevant to Health Maintenance Insurance * Guarantor: Aym DOMÍNGUEZ TypeRelation to PatientDate of BirthPhone Billing AddressSelf HpxBiqw79 [address] [place] [address] Care Teams Team MemberRelationshipSpecialtyStart DateEnd Date Abel Patel DO PCP - GeneralFamily Medicine03/15/14 Raven Romo AUD [address] [place] [address] Care PartnerAudtrihealth [facility]01/12/24
--- OUTSIDE RECORDS SUMMARY | 2025-05-01 13:48 | XMS_ITS | Encounter Summary ---
Author Organization [facility] Address [address] [place] [address] Care Team Providers Care Lieutenant Governor Name Role Phone Cruz Rajan MD Primary Care Provider [phone] Encounter Details DateTypeDepartmentCare Team (Latest Contact Info)Fxxrapcfluw31/03/2024Clinisync Result Encounter [facility] External Department Unsolicited Terese Aguila, ERIC [address] [place] [address] Social History Tobacco UseTypesPacks/DayYears UsedDateSmoking Tobacco: NeverSmokeless Tobacco: NeverAlcohol UseStandard Drinks/WeekCommentsNot Currently0 (1 standard drink = 0.6 oz pure alcohol)occasional alcohol use, Caffeine intake: none CommentsYesSex and Gender InformationValueDate RecordedSex Assigned at Scgjpf7201/21/2023 8:01 PM EDTLegal TcgFuuief02/15/2023 6:58 PM EDTGender Identity Hdkulq8801/21/2023 8:01 PM EDTSexual KcyzymdbhvdOsrfeacv81/02/2023 8:01 PM EDT documented as of this encounter Plan of Treatment DateTypeDepartmentCare Team (Latest Contact Info)Ngoqoiqjcie87/16/2026 11:00 AM ESTProcedure Visit [facility] [place] [address] [address] Camron Abad DO [address] [place] [address] documented as of this encounter Goals GoalPatient [...] EST Narrative 06/24/2023 10:00 AM EST [facility] ?[address] ? [place] [address] ? Ultrasound Report ? Signed ? Patient: AMY DOMÍNGUEZ L ?MR#: [id number] ?? : 1980 ?Acct:[id number] ?? Age/Sex: 42 / F ?ADM Date: 06/24/23 ?? Loc: US ? Attending Dr: Terese Aguila ? Ordering Physician: Terese Aguila ?? Date of Service: 06/24/23 ?? Procedure(s): US OB growth ?? Accession Number(s): [id number] ? cc: Terese Aguila; Cruz Rajan M.D. ? [facility] ? [address] [place] [address] ? [place] [address] ? Patient Name: ?? AMY DOMÍNGUEZ ? MRN: [facility]:[id number] ? date: 1980 ?Sex: F ?? Assigned Patient Location: US ?? Current Patient Location: US ?? Accession/Order Number: [id number] ?? Exam Date: 06/24/2023 ??09:11 ?Report Date: [...] ?06/24/23999 ? DD/ 0957 ? TD/TT: ? Head Of Academic Technology: Procedure Note Radiology, Radiologist, MD - 06/24/[address] [address] Ultrasound Report Signed Patient: AMY DOMÍNGUEZ LMR#: [id number] : 1980Acct:[id number] Age/Sex: 42 / FADM Date: 06/24/23 Loc: US Attending Dr: Terese Aguila Ordering Physician: Terese Aguila Date of Service: 06/24/23 Procedure(s): US OB growth Accession Number(s): [id number] cc: Terese Aguila; Cruz Rajan M.D. The [address] [address] Patient Name: AMY DOMÍNGUEZ MRN: [facility]:[id number] date: 1980 Sex: F Assigned Patient Location: US Current Patient Location: US Accession/Order Number: [id number] Exam Date: 06/24/2023 09:11 Report Date: 06/24/2023 [...] M.D. Signed By:06/24/23 1000 DD/ 0957 TD/TT: Head Of Academic Technology: Authorizing ProviderResult TypeResult StatusAmy [facility] HospitalYN IMAGINGFinal Result documented in this encounter Visit Diagnoses Not on filedocumented in this encounter Additional Health Concerns Active ProblemsNoted DateDiagnosed DateOB Gtwquumqw57/01/2023 documented as of this encounter Care Teams Team MemberRelationshipSpecialtyStart DateEnd Date Cruz Rajan MD [address] [place] [address] PCP - [facility]02/16/23documented as of this encounter
--- OUTSIDE RECORDS SUMMARY | 2025-05-01 13:49 | XMS_ITS | Encounter Summary ---
Author Organization [facility] Address [address] [place] [address] Care Team Providers Care Reading Recovery Teacher Name Role Phone Cruz Rajan MD Primary Care Provider [phone] Encounter Details DateTypeDepartmentCare Team (Latest Contact Info)Zkfqclopzss80/31/2025linisync Result Encounter [facility] External Department Unsolicited Ivan Abad, DO [address] [place] [address] Social History Tobacco UseTypesPacks/DayYears UsedDateSmoking Tobacco: NeverSmokeless Tobacco: NeverAlcohol UseStandard Drinks/WeekCommentsNot Currently0 (1 standard drink = 0.6 oz pure alcohol)occasional alcohol use, Caffeine intake: none CommentsNoSex and Gender InformationValueDate RecordedSex Assigned at Foslus2301/21/2023 8:01 PM EDTLegal MmdXxkodo92/15/2023 6:58 PM EDTGender Identity Dqkggw0201/21/2023 8:01 PM EDTSexual DlhzgjmfdxzZsqujuhw09/02/2023 8:01 PM EDT documented as of this encounter Plan of Treatment DateTypeDepartmentCare Team (Latest Contact Info)Gtzpsrzpvzd24/16/2026 11:00 AM ESTProcedure Visit [facility] [address] [facility] [phone] Ivan Abad, DO [address] [place] [address] documented as of this encounter Goals GoalPatient Goal TypeAssociated ProblemsRecent ProgressPatient-Stated?Author Reminders Care PlanOB RemindersNoOpen Scheduling, Backgrounddocumented as of this encounter Procedures Procedure NamePriorityDate/TimeAssociated DiagnosisCommentsALL TYPE AND SCREEN Fygnzqe9104/21/2025 8:25 AM EDT ECG 12-LEAD04/21/2025 6:22 AM EDT documented in this encounter Results * ALL TYPE AND SCREEN (04/21/2025 8:25 AM EDT)ComponentValueRef RangeTest Method Analysis TimePerformed AtPathologist SignatureBLOOD TYPEO PositiveTBHANTIBODY SCREENNEGATIVETBHSpecimen (Source)Anatomical Location / LateralityCollection Method / VolumeCollection TimeReceived Time04/21/2025 8:25 AM EDT1 8:30 AM EDT Narrative [facility] - 04/21/2025 10:18 AM EDT [facility] , ?? Authorizing ProviderResult TypeResult StatusCorey Pollo DOCLINISYNCFinal Result Performing OrganizationAddressCity/State/ZIP CodePhone Number [facility] * ECG 12-LEAD (04/21/2025 6:22 AM EDT)Anatomical RegionLateralityModalityOther Specimen (Source)Anatomical Location / LateralityCollection Method / Volume Collection TimeReceived Time04/21/2025 6:22 AM EDT Narrative 04/21/2025 9:04 AM EDT [facility] ?[address] ? [place] [address] ? Electrocardiograph Report ? Signed ? Patient: AMY ALFARO Shravan ?MR#: [id number] ?? : 1980 ?Acct:[id number] ?? Age/Sex: 44 / F ?ADM Date: 04/21/25 ?? Loc: PST ? Attending Dr: Ivan Abad D.O. ? Ordering Physician: Ivan Abad D.O. ?? Date of Service: 04/21/25 ?? Procedure(s): ECG 12 lead ?? Accession Number(s): [id number] ? cc: ?[facility] ? Test Date: ?2025-04-21 ?? Pat Name: ? AMY ALFARO ? Department: ? Room: ? - ?? Gender: ? Female ? Camera Systems Engineer: ? : ?1980 ? Requested By: IVAN ABAD ?? Order Number: [id number] ?Reading MD: ?? TYREL ??Jose F RICHMOND ? Measurements ?? Intervals ?[place] ? Rate: ? 47 ? P: ?19 ?? AL: ? 131 ?QRS: ?58 ?? QRSD: ? 93 ? T: ?36 ?? QT: ? 420 ? QTc: ?373 ? Interpretive Statements ?? SINUS BRADYCARDIA ?? Borderline ECG ?? No previous ECG available for comparison ?? Electronically Signed On 04-21-2025 9:03:40 EDT by TYREL ??Jose F RICHMOND ? Dictated By: ?TYREL RICHMOND ? Signed By: ?10/31/25 0904 ? DD/ 1 ? TD/TT: ? Wet Room Worker: Procedure Note Radiology, Radiologist, MD - 04/21/2025 [place] [address] Electrocardiograph Report Signed Patient: AMY ALFARO LMR#: [id number] : 1980Acct:[id number] Age/Sex: 44 / FADM Date: 04/21/25 Loc: [facility] Attending Dr: Ivan Abad D.O. Ordering Physician: Ivan Abad D.O. Date of Service: 04/21/25 Procedure(s): ECG 12 lead Accession Number(s): [id number] cc: [facility] Test Date: 2025-04-21 Pat Name: AMY ALFARO Department: Room: - Gender: Female Camera Systems Engineer: : 1980 Requested By: IVAN ABAD Order Number: [id number] Reading MD: TYREL RICHMOND M.D. Measurements Intervals [place] Rate: 47 P: 19 AL: 131 QRS: 58 QRSD: 93 T: 36 QT: 420 QTc: 373 Interpretive Statements SINUS BRADYCARDIA Borderline ECG No previous ECG available for comparison Electronically Signed On 04-21-2025 9:03:40 EDT by TYREL RICHMOND M.D. Dictated By: TYREL RICHMOND Signed By:04/21/25903 DD/ 1 TD/TT: Wet Room Worker: Authorizing ProviderResult TypeResult StatusCorey Pollo DOCLINISYNC IMAGINGFinal Result documented in this encounter Visit Diagnoses Not on filedocumented in this encounter Additional Health Concerns Active ProblemsNoted DateDiagnosed DateOB Nfovhgrgz00/01/2023 documented as of this encounter Care Teams Team MemberRelationshipSpecialtyStart DateEnd Date Cruz Rajan MD [address] [place] [address] PCP - General02/16/23documented as of this encounter
--- OUTSIDE RECORDS SUMMARY | 2025-05-01 13:49 | XMS_ITS | Clinical Summary ---
Author Organization [employer] Address [id number] [address] [place] [address] Care Team Providers Care Hot Wire Glass Tube Cutter Name Role Phone Cruz Rajan MD Primary Care Provider [phone] Social History Tobacco UseTypesPacks/DayYears UsedDateSmoking Tobacco: Never Assessed CommentsNoSex and Gender InformationValueDate RecordedSex Assigned at BirthNot on fileLegal BluLqnaiz03/06/2023 1:43 PM EDTGender IdentityNot on fileSexual OrientationNot on file Plan of Treatment Health MaintenanceDue DateLast DoneCommentsDepression Mdazkaxiy79/29/1992Tobacco Fhvvelhnq75/29/1992Adult BMI Xbevrolda61/29/1998Pap Smear11/17/2000COVID-19 Vaccine ( season)503/11/2021, 07/21/2021Influenza Vaccine /06/2019DTaP,Tdap and Td Vaccines (2 - Tdap)/06/2020 Medical Devices Not on file Insurance Care Teams Team MemberRelationshipSpecialtyStart DateEnd Date Cruz Rajan MD [facility] - [facility]23
--- OUTSIDE RECORDS SUMMARY | 2025-05-01 14:08 | XMS_ITS | CCD ---
Author Organization [facility] Care Team Providers Care Dyer And Washer Name Role Phone Megan Oconnor Unavailable ANDRES, [...] Unavaila ble KARASIK, DR LEE Consulting Unavailable Deloris Sun Primary Care Provider [phone] Ariel Santana MD Primary Care Provider Deloris Sun DO Primary Care Provider Yulissa Sandoval Unavailable YULISSA ROMO Attending Unavailable DELORIS SUN Primary Care Unavailab Ariel Rich MD Primary Care Provider [phone] Ariel Santana MD Primary Care Provider [phone] TERESE ANDREA Attending Unavailable CAMRON ABAD Attending Unavailable PRECIOUS DEAN Attending Unavailable Allergies Allergy ClassificationReported Allergen(s)Allergy TypeDate of OnsetReaction(s) Facility (5 sources)Seasonal allergy; Translations: [SEASONAL ALLERGIES]Allergy to xlogmvrfl65-34-7408DpsvgSzvipygfq Clinic (20 sources)OctacosanolDrug Aotupfu10-57-2825KdrspVUCQ Healthcare (20 sources)OtherPropensity to adverse pizotwvvk57-48-8094YroehjvQCLC Healthcare Medications Current Medications MedicationDrug Class(es)DatesSig (Normalized)Sig (Original)[id number] 200 actuat albuterol 0.09 mg/actuat metered dose inhaler (1 source)beta2-Adrenergic AgonistStart: 37-51-1892wczq 2 puff(s) by inhalation every four hours as neededAlbuterol Sulfate HFA 108 (90 Base) MCG/ACT 2 puffs as needed Inhalation every 4 hrs Nov, Activeaspirin 81 mg delayed release oral tablet (4 sources)Platelet Aggregation Inhibitor, Nonsteroidal Anti-inflammatory Drug End: 70-86-0399aede 1 tablet by mouth in the morningaspirin 81 MG EC tablet Take 81 mg by mouth in the morning. 0 08/03/2023 Discontinuedcetirizine hydrochloride 10 mg oral tablet (15 sources)Histamine-1 Receptor Antagonisttake 1 tablet by mouth once daily cetirizine (ZyrTEC) 10 MG tablet Take 10 mg by mouth Daily ActiveCetirizine (ZYRTEC) 10 mg cap Take 1 capsule by mouth as needed. ActiveComment on above: Take 1 capsule by mouth as needed. Clotrimazole (1 source)Azole AntifungalStart: 26-30-8046Utvfpphysbon 1 % 1 application to affected area Externally Twice a day for 28 day(s) Nov, ActiveDocusate (11 sources)DOCUSATE SODIUM (COLACE ORAL) Take 1 tablet by mouth as needed. Active End: 54-12-3443kkjh 1 capsule by mouth in the morningdocusate [...] Autoimmune disorder of inner ear Use 1 Montgomery in each nostril as needed. ActiveComment on above:Use 1 Montgomery in each nostril as needed. methylPREDNISolone 4 mg oral tablet (1 source)CorticosteroidStart: 62-38-9049zofcxtHXMGUXFwhfez 4 MG as directed Orally Once a [...] daily.predniSONE 10 mg oral tablet (4 sources)Start: 05-88-9044eqbmdxXNOF (DELTASONE) 10 mg tablet Take by mouth [...] 27-1 MG tablet (8 sources)Start: 06-18-2023 End: 04-92-7300lulu 1 tablet by mouth once dailyPrenatal 27-1 MG tablet Indications: Second trimester Take 1 tablet by mouth 1 (one) timeeach day at the same time 90 tablet 3 06/18/2023 06/17/2024 Active Completed/Discontinued Medications MedicationDrug Class(es)DatesSig (Normalized)Sig (Original)LOW-DOSE ASPIRIN PO (2 sources)Start: 04-02-2023 End: 08-37-2022ZKT-DOSE ASPIRIN POphenylephrine 0.0025 mg/mg / witch raquel 0.5 mg/mg rectal gel (3 sources)alpha-1 Adrenergic Agonist End: 25-14-5415Sobilisbfcbhr-Witch Raquel (Preparation H) 0.25-50 % gel Apply 1 Application topically Daily 04/26/2024 Discontinued (Therapy completed) Triamcinolone (1 source)CorticosteroidStart: 50-61-3476Wkgitiq -40 mg Nov, 40 mg Problems Active Problems Problem ClassificationProblemDateDocumented DateEpisodic/ChronicDeficiency and other anemia (4 sources)Iron deficiency anemia, unspecified; Translations: [IRON DEFICIENCY ANEMIA UNSPECIFIED]Onset: 01-54-4820WybjqtgbJhzyrtycyl and other anemia (1 source)Anemia, unspecified; Translations: [ANEMIA UNSPECIFIED]Onset: 04-47-4170LtadgbqsElhlh aftercare (5 sources)Cochlear prosthesis in situ; Translations: [Encounter for other specified surgical aftercare]Onset: 960211-40-0097WgsnfhfhAuupl circulatory disease (2 sources)Low blood pressure reading; Translations: [Nonspecific low blood- pressure reading]35-31-1841BqehoywvPptpy complications of (5 sources)Missed ; Translations: [MISSED ]Onset: 07-17-2022 EpisodicOther complications of (2 sources)Missed miscarriage; Translations: [Missed ]60-92-0224Rikhqiwe Other ear and sense organ disorders (1 source)Unspecified sensorineural hearing loss; Translations: [UNS SENSORINEURAL HEARING LOSS]Onset: 87-01-1481VzcsttqOulwd ear and sense organ disorders (5 sources)Asymmetrical sensorineural hearing loss; Translations: [Sensorineural hearing loss, bilateral]Onset: 28-53-1509PdxdxfmCofrl ear and sense organ disorders (8 sources)Sensorineural hearing loss, bilateral; Translations: [Sensorineural hearing loss, bilateral]Onset: 57-22-8874DqhrsqiYsmag ear and sense organ disorders (1 source)Cochlear prosthesis in situ; Translations: [Cochlear implant status] ChronicOther ear and sense organ disorders (4 sources)Sensorineural hearing loss in left ear; Translations: [Unspecified sensorineural hearing loss]02-30-5398EalldagVdebo and delivery including normal (13 sources)Encounter for supervision of other normal , first trimester; Translations: [Encounter for supervision of normal , unspecified, unspecified trimester]Onset: 85-95-4666EafdprtmHhylw screening for suspected conditions (not mental disorders or infectious disease) (6 sources)Encounter for screening for malignant neoplasm of cervix; Translations: [Patient encounter status]Onset: 68-27-3334PufsvwlzVnmxbzulbsf (1 source)Complete or unspecified spontaneous without complication; Translations: [COMPLETE/UNS SPONT AB W/O COMP]Onset: 61-28-0685Kggkpslt Unclassified (1 source)CONTACT W/AND (SUSP) EXPOS COVID-19; Translations: [CONTACT W/AND (SUSP) EXPOS COVID-19]Onset: 65-54-5999Qzefvxedeznu (20 sources)OB RemindersOnset: 008562-66-0625 Past or Other Problems Problem ClassificationProblemDateDocumented DateEpisodic/ChronicChronic obstructive pulmonary disease and bronchiectasis (1 source)Bronchitis, not specified as acute or chronicOnset: 11-24-2021 Resolved: 55-33-8446HrbdpyeiUlwrrjfbsj associated with dizziness or vertigo (12 sources)Vertigo of central origin; Translations: [Vertigo of central origin] Onset: 227711-36-1968OigthqzcKfcndlvedqyxw and screening for infectious disease (1 source)Encounter for screening for human papillomavirus (HPV); Translations: [ENC SCREENING HUMAN PAPILLOMAVIRUS]Onset: 30-60-2944LcgcporcStgzjjx (1 source)Superficial mycosis, unspecifiedOnset: 11-24-2021 Resolved: 21-29-9831WivuewjzNgith gestation; low weight; and growth retardation (20 sources)Lkhqj-jvb-jompu baby; Translations: [ small for gestational age, unspecified weight]Onset: 074646-58-8776Ldlmzwpi Results Test NameValueInterpretationReference RangeFacilityALL CBC WITH AUTO DIFFon 21-44-2993CIWSHMPRY ABSOLUTE AUTO0.0NOMS HealthcareBasophils/100 WBC (Bld)0.4 % 0.2 - 2.0 %NOMS HealthcareEosinophils/100 WBC (Bld)1.7 %0.9 - 7.0 %NOMS HealthcareErythrocyte distribution width (RBC) [Ratio]13.6 %11.0 - 15.0 %NOMHca Midwest DivisionHematocrit (Bld) [Volume fraction]41.1 %36.0 - 48.0 %[facility] Hemoglobin (Bld) [Mass/Vol]13.9 g/dL12.0 - 16.0 g/dLSaint Louis University Health Science CenterIMMATURE GRANULOCYTES ABS AUTO0.02NOMS [facility] - WestImmature granulocytes/100 WBC (Bld)0.2 % 0.0 - 0.5 %[facility] CenterLYMPHOCYTES ABSOLUTE AUTO2.0N[facility] Lymphocytes/100 WBC (Bld)24.5 %20.5 - 60.0 %[facility] HealthcareH (RBC) [Entitic mass]31.2 pg26.7 - 34.0 pgNOParkland Health CenterHC (RBC) [Mass/Vol]33.8 g/dL29.9 - 35.2 g/dLCitizens Memorial HealthcareV (RBC) [Entitic vol]92.4 fL81.0 - 99.0 fLNOMissouri Baptist Medical CenterMONOCYTES ABSOLUTE AUTO0.5NOMS HealthcareMonocytes/100 WBC (Bld)6.4 % 1.7 - 12.0 %NOMHca Midwest DivisionNEUTROPHILS ABSOLUTE AUTO5.5[facility] Neutrophils/100 WBC (Bld)66.8 %43.0 - 75.0 %[facility] CenterPlatelet mean volume (Bld) [Entitic vol]10.1 fL9.5 - 13.5 fLNOMS [facility] - WestTBH EO #0.1[facility] TBH [id number] [facility] RBC4.45[facility] WBC8.3[facility] CLINISYNCSaint Louis University Health Science CenterEC 12-LEADon 08-63-8683[place], [place] [address] Electrocardiograph Report Signed Patient: AMY ALFARO MR#: [id number] : 1980 Acct:[id number] Age/Sex: 44 / F ADM Date: 04/21/25 Loc: PST Attending Dr: Camron Abad D.O. Ordering Physician: Camron Abad D.O. 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 Measurements Intervals [place] Rate: 47 P: 19 MN: 131 QRS: 58 QRSD: 93 T: 36 QT: 420 QTc: 373 Interpretive Statements SINUS BRADYCARDIA Borderline ECG No previous ECG available for comparison Electronically Signed On 04-21-2025 9:03:40 EDT by TYREL RICHMOND M.D. Dictated By: TYREL RICHMOND Signed By: 04/21/25 0904 DD/ 0622 TD/TT: Jack Frame Tender:SHANTALHRadiology, Radiologist, - 04/21/2025 [facility] [place] [id number] Electrocardiograph Report Signed Patient: AMY ALFARO MR#: [id number] : 1980 Acct:[id number] Age/Sex: 44 / F ADM Date: 04/21/25 Loc: PST Attending Dr: Camron Abad D.O. Ordering Physician: Camron Abad D.O. 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 Measurements Intervals [place] Rate: 47 P: 19 MN: 131 QRS: 58 QRSD: 93 T: 36 QT: 420 QTc: 373 Interpretive Statements SINUS BRADYCARDIA Borderline ECG No previous ECG available for comparison Electronically Signed On 04-21-2025 9:03:40 EDT by TYREL RICHMOND M.D. Dictated By: TYREL RICHMOND Signed By: 04/21/25903 DD/ 1 TD/TT: Jack Frame Tender: CHLOE HealthcareRadiology Study observation (narrative)[facility] HealthcareEC 12-LEAD Ordered By: Radiologist Radiology on 62-48-5000QPFG Healthcare Work Phone: US OB TRANSVAGINALon 21-68-9336UO OB TRANSVAGINAL FINDINGS: Single intrauterine gestational sac with a normal appearing decidual reaction and yolk sac is visible. A single pole is present, crown-rump length 1.8 cm suggests an 8 week and 2 day gestational age, however no cardiac activity is identified. Closed cervix. No adnexal mass. IMPRESSION: Single intrauterine gestational sac with a single pole, absence of cardiac activity questionsviability at this time. Correlate with serial beta hCG and [employer] HR DEVELOPER consultation. TRANSCRIBED BY: ELECTRONICALLY SIGNED BY: Cory Bejarano AvailableComment on above:Order Comment: US OB TRANSVAGINAL No LMP recorded.CNOVon 84-47-4314ZUIGOotagg Visit (OTAUCR) AMY ALFARO ([id number]) 1980 F Date Time Provider Department 07/21/24 8:30 AM YULISSA ROMO During your visit today, we recorded the following information about you: Yulissa Romo AUD 07/21/2024 11:17 AM Signed [facility] COCHLEAR IMPLANT ADULT PROGRAMMING Name: Amy ALFARO [facility]#: [id number] Date of Service: July 21, 2024 Date of : 1980 Age: [age] year old COCHLEAR IMPLANT INFORMATION (see below for all device details) Right ear: Phonak Audeo [employer] that was fit at an outside facility (November 2021) and is being managed by that facility. Left ear: External Processor: Cochlear Opez [id number] (Nucleus 8; upgraded around January 2023) Processor SN: [id number] Processor ([id number]) SN: [id number] Magnet strength: 2 Internal Device: Cochlear CI532 Profile with Slim Modiolar Electrode Array Internal Device SN: [id number] Inactive electrodes: None Surgery Date: 09/02/2017 Initial activation date: 09/29/217 Surgeon: Reyna Yeung M.D. Accessories: Remote Control (CR310) Mini Microphone 2+ Phone Clip HISTORY: Ms. ALFARO was seen for annual evaluation of the device. The patient reported: Processor and PR1197 coil were replaced in May 2024 as [...] 6; Sensitivity: 12) before programming. See the [facility] Audiogram for obtained thresholds. Speech perception testing was completed at 60 hand knitter using recorded stimuli in the sound field at 0 degrees azimuth. NOTE: The contralateral ear was plugged and muffed during testing. The following testing and results were obtained: Usydtnycw-Zxbvery-Cgjsnexhp Words (CNC) Test Condition List # Phonemes [...] are problems or roberto (more content not included)...NormalProMedica Defiance Regional Hospital IMPLANTABLE DEVICES (E.G. COCHLEAR IMPLANTS (CI), BONE ANCHORED (SHAWN), SENSORY DEVICES)on 74-22-5476Lemiodarj ClinicIGP,APTIMA HPV,AGE GDLNon 59-84-5613TFI GDLN ACOG TESTINGNote.NOMS HealthcareComment on above:TESTS RESULT FLAG UNITS REF RANGE LAB Clinician Provided Cytology Information Source.............Cervix;Endocervix No. of containers..01 ThinPrep Vial Age Algo ACOG Mini... FLAG LEGEND: L-Low Normal,H-High Normal,LL-Alert Low,HH-Alert High <-Panic Low,>-Panic High,A-Abnormal,AA-Critical Abnormal Performed at: 01 =[address] [facility] [address] Rocío Hong MD, HPV APTIMANegativeNegativeNOMS HealthcareComment on above:This nucleic acid amplification test detects fourteen high- risk HPV types (16,18,31,33,35,39,45,51,52,56,58,59,66,68) without differentiation. Performed at: =G - [facility], [place] [id number] Rail Walker: Rocío Hong MD, Phone: [phone] Performed at: - [facility], [place] [id number] Rail Walker: Rocío Hong MD, Phone: [phone] IGP, APTIMA HPV, RFX 16/18,45Note.NOMS HealthcareComment on above:TESTS RESULT FLAG UNITS REF RANGE LAB DIAGNOSIS: 02 NEGATIVE FOR INTRAEPITHELIAL LESION OR MALIGNANCY. Specimen adequacy: 02 Satisfactory for evaluation. Endocervical and/or squamous metaplastic cells (endocervical component) are present. Performed by: Tristan Whittington, Information Systems Administrator ([facility]) . 02 Note: Note 02 The Pap [...] High,A-Abnormal,AA-Critical Abnormal Performed at: 02 [facility] [address] [place] [address] Rocío Hong MD, BRUSH-SPATULA CERVIX ENDOCERVIX CLINISYNCSaint [facility] Center CBC WITH PLATELET NO DIFFERENTIALon 09-08-2023 Erythrocyte distribution width (RBC) [Ratio]14.7 %11.0 - 15.0 %[facility] Hematocrit (Bld) [Volume fraction]35.9 %Low36.0 - 48.0 %[facility] Hemoglobin (Bld) [Mass/Vol]11.8 g/dLLow12.0 - 16.0 g/dLSaint Louis University Health Science Center Interpretation and review of laboratory resultsAbnormalJefferson Memorial Hospital (RBC) [Entitic mass]30.6 pg26.7 - 34.0 pgCitizens Memorial HealthcareHC (RBC) [Mass/Vol]32.9 g/dL 29.9 - 35.2 g/dLCitizens Memorial HealthcareV (RBC) [Entitic vol]93.0 fL81.0 - 99.0 fLSaint Louis University Health Science CenterPlatelet mean volume (Bld) [Entitic vol]11.6 fL9.5 - 13.5 fLSaint Luke's Hospital KUS173UPMUSamaritan Hospital RBC3.86LowNOSamaritan Hospital WBC7.7NOMissouri Baptist Medical CenterCLINISYNCNOMS [facility] DRUG SCREEN RAPID (URINE)on 09-08-2023 AMPHETAMINE SCREEN URINENegativeNEGATIVENOMS HealthcareBARBITURATES SCREEN URINE NegativeNEGATIVENOMT HealthcareBENZODIAZEPINES SCREEN URINENegativeNEGATIVENOMS HealthcareBUPRENORPHINE SCREEN URINENegativeNEGATIVENOMS HealthcareComment on above:DRUG CLASS TEST SYSTEM CUT-OFF CONCENTRATIONS ARE FOLLOWS: AMP (Amphetamine): 500 ng/mL BAR (Barbiturates): 200 ng/mL BZO (Benzodiazepines): 150 ng/mL BUP (Buprenorphine): 10 ng/mL PIERRE (Cocaine): 150 ng/mL mAMP (Methamphetamine): 500 ng/mL MTD (Methadone): 200 ng/mL OPI (Opiates): 100 ng/mL OXY (Oxycodone): 100 ng/mL PCP (Phencyclidine): 25 ng/mL THC (Cannabinoids): 50 ng/mL TCA (Trycyclic Antidepressants): 300 ng/mL CANNABINOID SCREEN URINENegativeNEGATIVENOMS HealthcareCOCAINE SCREEN URINE NegativeNEGATIVENOMS HealthcareMETHADONE SCREEN URINENegativeNEGATIVENOMS HealthcareMETHAMPHETAMINES SCREEN URINENegativeNEGATIVENOMS HealthcareOPIATE SCREEN URINENegativeNEGATIVENOMS HealthcareOXYCODONE SCREEN URINENegative NEGATIVENOMS HealthcarePHENCYCLIDINE SCREEN URINENegativeNEGATIVENOMS Healthcare TRICYCLIC ANTIDEPRESSANT URINENegativeNEGATIVENOMS HealthcareCLINISYNCNOMS HealthcareUS OB BPP W NON-STRESSon 66-09-7481DgaSomis, [place] [address] Ultrasound Report Signed Patient: AMY ALFARO MR#: [id number] : 1980 Acct:[id number] Age/Sex: 42 / F ADM Date: 09/08/23 Loc: [facility] 250-[address]: Camron Abad D.O. Ordering Physician: Camron Abad D.O. Date of Service: 09/08/23 Procedure(s): US OB BPP w non-stress Accession Number(s): [id number] cc: Camron Abad D.O.; Ariel Santana M.D. [facility] [place] [address] Patient Name: AMY ALFARO MRN: [facility]:[id number] date: 1980 Sex: F Assigned Patient Location: [facility] Current Patient Location: [facility] Accession/Order Number: [id number] Exam Date: 09/08/2023 08:06 Report Date: 09/08/2023 09:57 At the request of: CAMRON ABAD Procedure: US OB BPP w non-stress EXAMINATION: US OB BPP w non-stress HISTORY: Small for gestational age P05.10 COMPARISON: No relevant comparison available. TECHNIQUE: Ultrasound biophysical profile was performed in the radiology department. non-reactive stress testing was performed by nursing staff in the birthing center. FINDINGS: BREATHING MOVEMENTS: 2.0 GROSS BODY MOVEMENTS: 2.0 TONE: 2.0 QUALITATIVE AMNIOTIC FLUID VOLUME: 2.0 PRESENTATION: CEPHALIC HEART RATE: 136.4 bpm H.B./min AMNIOTIC FLUID VOLUME: 13.9 cm cm GESTATIONAL AGE: 38 weeks 5 days CONCLUSION: Total biophysical profile score: 8.0 Electronically authenticated by: RIMMA SILVERMAN Date: 09/08/2023 09:57 Dictated By: Rimma Silverman M.D. Signed By: 09/08/23 0959 DD/ TD/TT: Jack Frame Tender:TBHRadiology, Radiologist, - 09/08/2023 [place] [address] Ultrasound Report Signed Patient: AMY ALFARO MR#: [id number] : 1980 Acct:[id number] Age/Sex: 42 / F ADM Date: 09/08/23 Loc: [facility] 250-[address]: Camron Abad D.O. Ordering Physician: Camron Abad D.O. Date of Service: 09/08/23 Procedure(s): US OB BPP w non-stress Accession Number(s): [id number] cc: Camron Abad D.O.; Ariel Santana M.D. [facility] [place] [id number] Patient Name: AMY ALFARO MRN: [facility]:[id number] date: 1980 Sex: F Assigned Patient Location: [facility] Current Patient Location: [facility] Accession/Order Number: [id number] Exam Date: 09/08/2023 08:06 Report Date: 09/08/2023 09:57 At the request of: CAMRON ABAD Procedure: US OB BPP w non-stress EXAMINATION: US OB BPP w non-stress HISTORY: Small for gestational age P05.10 COMPARISON: No relevant comparison available. TECHNIQUE: Ultrasound biophysical profile was performed in the radiology department. non-reactive stress testing was performed by nursing staff in the birthing center. FINDINGS: BREATHING MOVEMENTS: 2.0 GROSS BODY MOVEMENTS: 2.0 TONE: 2.0 QUALITATIVE AMNIOTIC FLUID VOLUME: 2.0 PRESENTATION: CEPHALIC HEART RATE: 136.4 bpm H.B./min AMNIOTIC FLUID VOLUME: 13.9 cm cm GESTATIONAL AGE: 38 weeks 5 days CONCLUSION: Total biophysical profile score: 8.0 Electronically authenticated by: RIMMA SILVERMAN Date: 09/08/2023 09:57 Dictated By: Rimma Silverman M.D. Signed By: 09/08/2359 DD/ TD/TT: Jack Frame Tender: CHLOE HealthcareRadiology Study observation (narrative)NOMS HealthcareUS OB BPP W NON-STRESSOrdered By: Radiologist Radiology on 98-15-5244K[facility]A [facility] Work Phone: US OB BPP W NON-STRESSon 56-07-6850LdoSomis, [place] [address] Ultrasound Report Signed Patient: AMY ALFARO MR#: [id number] : 1980 Acct:[id number] Age/Sex: 42 / F ADM Date: 09/01/23 Loc: [facility] 250- Attending Dr: Camron Abad D.O. Ordering Physician: Camron Abad D.O. Date of Service: 09/01/23 Procedure(s): US OB BPP w non-stress Accession Number(s): [id number] cc: Camron Abad D.O.; Ariel Santana M.D. [place] [address] Patient Name: AMY ALFARO MRN: [facility]:[id number] date: 1980 Sex: F Assigned Patient Location: [facility] Current Patient Location: [facility] Accession/Order Number: [id number] Exam Date: 09/01/2023 08:06 Report Date: 09/01/2023 08:33 At the request of: CAMRON ABAD Procedure: US OB BPP w non-stress [...] profile score: 8.0 Electronically authenticated by: RIMMA SILVERMAN Date: 09/01/2023 08:33 Dictated By: Rimma Silverman M.D. Signed By: 09/01/23834 DD/ 2 TD/TT: Jack Frame Tender:TBHRadiology, Radiologist, - 09/01/2023 [place] [address] Ultrasound Report Signed Patient: AMY ALFARO MR#: [id number] : 1980 Acct:[id number] Age/Sex: 42 / F ADM Date: 09/01/23 Loc: [facility] 250-[address]: Camron Abad D.O. Ordering Physician: Camron Abad D.O. Date of Service: 09/01/23 Procedure(s): US OB BPP w non-stress Accession Number(s): [id number] cc: Camron Abad D.O.; Ariel Santana M.D. [facility] [place] [id number] Patient Name: AMY ALFARO MRN: [facility]:[id number] date: 1980 Sex: F Assigned Patient Location: [facility] Current Patient Location: [facility] Accession/Order Number: [id number] Exam Date: 09/01/2023 08:06 Report Date: 09/01/2023 08:33 At the request of: CAMRON ABAD Procedure: US OB BPP w non-stress [...] profile score: 8.0 Electronically authenticated by: RIMMA SILVERMAN Date: 09/01/2023 08:33 Dictated By: Rimma Silverman M.D. Signed By: 09/01/23834 DD/ 2 TD/TT: Jack Frame Tender: CHLOE HealthcareRadiology Study observation (narrative)NOMS HealthcareUS OB BPP W NON-STRESSOrdered By: Radiologist Radiology on 70-52-5375GVQW Healthcare Work Phone: US OB BPP W NON-STRESSon 40-37-8779QfhSom[place], [place] [address] Ultrasound Report Signed Patient: AMY ALFARO MR#: [id number] : 1980 Acct:[id number] Age/Sex: 42 / F ADM Date: 08/25/23 Loc: US Attending Dr: Camron Abad D.O. Ordering Physician: Camron Abad D.O. Date of Service: 08/25/23 Procedure(s): US OB BPP w non-stress Accession Number(s): [id number] cc: Camron Abad D.O.; Ariel Santana M.D. [place] [id number] Patient Name: AMY ALFARO MRN: [id number] date: 1980 Sex: F Assigned Patient Location: [facility] Current Patient Location: Accession/Order Number: [id number] Exam Date: 08/25/2023 08:02 Report Date: 08/25/2023 08:57 At the request of: CAMRON ABAD Procedure: US OB BPP w non-stress [...] profile score: 8.0 Electronically authenticated by: RIMMA SILVERMAN Date: 08/25/2023 08:57 Dictated By: Rimma Silverman M.D. Signed By: 08/25/23899 DD/ 6 TD/TT: Jack Frame Tender:YANELYadiolSindi logan, - 08/25/2023 [place] [address] Ultrasound Report Signed Patient: AMY ALFARO MR#: [id number] : 1980 Acct:[id number] Age/Sex: 42 / F ADM Date: 08/25/23 Loc: US Attending Dr: Camron Abad D.O. Ordering Physician: Camron Abad D.O. Date of Service: 08/25/23 Procedure(s): US OB BPP w non-stress Accession Number(s): [id number] cc: Camron Abad D.O.; Ariel Santana M.D. [facility] [place] [address] Patient Name: AMY ALFARO MRN: [facility]:[id number] date: 1980 Sex: F Assigned Patient Location: [facility] Current Patient Location: Accession/Order Number: [id number] Exam Date: 08/25/2023 08:02 Report Date: 08/25/2023 08:57 At the request of: CAMRON ABAD Procedure: US OB BPP w non-stress [...] profile score: 8.0 Electronically authenticated by: RIMMA SILVERMAN Date: 08/25/2023 08:57 Dictated By: Rimma Silverman M.D. Signed By: 08/25/23899 DD/ 6 TD/TT: Jack Frame Tender: CHLOE HealthcareRadiology Study observation (narrative)NOMLj HealthcareUS OB BPP W NON-STRESSOrdered By: Radiologist Radiology on 02-04-6651L[facility]H [facility] Work Phone: US OB BPP W NON-STRESSon 46-15-4396HstS[place], [place] [address] Ultrasound Report Signed Patient: AMY ALFARO MR#: [id number] : 1980 Acct:[id number] Age/Sex: 42 / F ADM Date: 08/21/23 Loc: [facility] 250-[address]: Camron Abad D.O. Ordering Physician: Camron Abad D.O. Date of Service: 08/21/23 Procedure(s): US OB BPP w non-stress Accession Number(s): [id number] cc: Camron Abad D.O.; Ariel Santana M.D. [place] [address] Patient Name: AMY ALFARO MRN: [id number] date: 1980 Sex: F Assigned Patient Location: [facility] Current Patient Location: [facility] Accession/Order Number: [id number] Exam Date: 08/21/2023 08:42 Report Date: 08/21/2023 09:07 At the request of: CAMRON ABAD Procedure: US OB BPP w non-stress [...] profile score: 8.0 Electronically authenticated by: RIMMA SILVERMAN Date: 08/21/2023 09:07 Dictated By: Rimma Silverman M.D. Signed By: 08/21/23909 DD/ 6 TD/TT: Jack Frame Tender:YANELYadioldoreen, MD Sindi - 08/26/2023 [place] [address] Ultrasound Report Signed Patient: AMY ALFARO MR#: [id number] : 1980 Acct:[id number] Age/Sex: 42 / F ADM Date: 08/21/23 Loc: [facility] 250-[address]: Camron Abad D.O. Ordering Physician: Camron Abad D.O. Date of Service: 08/21/23 Procedure(s): US OB BPP w non-stress Accession Number(s): [id number] cc: Camron Abad D.O.; Ariel Santana M.D. The [place] [address] Patient Name: AMY ALFARO MRN: [facility]:[id number] date: 1980 Sex: F Assigned Patient Location: [facility] Current Patient Location: [facility] Accession/Order Number: [id number] Exam Date: 08/21/2023 08:42 Report Date: 08/21/2023 09:07 At the request of: CAMRON ABAD Procedure: US OB BPP w non-stress [...] profile score: 8.0 Electronically authenticated by: RIMMA SILVERMAN Date: 08/21/2023 09:07 Dictated By: Rimma Silverman M.D. Signed By: 08/21/23909 DD/ 6 TD/TT: Jack Frame Tender: CHLOE HealthcareRadiology Study observation (narrative)CHLOE UribeUS OB BPP W NON-STRESSOrdered By: Radiologist Radiology on 14-88-3991[facility] Work Phone: US OB GROWTHon [id number] [address] Ultrasound Report Signed Patient: AMY ALFARO MR#: [id number] : 1980 Acct:[id number] Age/Sex: 42 / F ADM Date: 08/20/23 Loc: [facility] Attending Dr: Terese Andrea Ordering Physician: Terese Andrea Date of Service: 08/20/23 Procedure(s): US OB growth Accession Number(s): [id number] cc: Terese Andrea; Ariel Santana M.D. [address] [address] Patient Name: AMY ALFARO MRN: [id number] date: 1980 Sex: F Assigned Patient Location: [facility] Current Patient Location: [facility] Accession/Order Number: [id number] Exam Date: 08/20/2023 11:06 Report Date: 08/20/2023 11:46 At the request of: TERESE ANDREA Procedure: US OB growth EXAMINATION: US OB [...] the 12th percentile Electronically authenticated by: RIMMA SILVERMAN Date: 08/20/2023 11:46 Dictated By: Rimma Silverman M.D. Signed By: 08/20/23 1149 DD/ 1146 TD/TT: Jack Frame Tender:TBHRadiology, Radiologist, MD - 08/26/2023 [place] [address] Ultrasound Report Signed Patient: AMY ALFARO MR#: [id number] : 1980 Acct:[id number] Age/Sex: 42 / F ADM Date: 08/20/23 Loc: [facility] Attending Dr: Terese Andrea Ordering Physician: Terese Andrea Date of Service: 08/20/23 Procedure(s): US OB growth Accession Number(s): [id number] cc: Terese Andrea; Ariel Santana M.D. The [address] [address] Patient Name: AMY ALFARO MRN: [id number] date: 1980 Sex: F Assigned Patient Location: [facility] Current Patient Location: [facility] Accession/Order Number: [id number] Exam Date: 08/20/2023 11:06 Report Date: 08/20/2023 11:46 At the request of: TERESE ANDREA Procedure: US OB growth EXAMINATION: US OB [...] the 12th percentile Electronically authenticated by: RIMMA SILVERMAN Date: 08/20/2023 11:46 Dictated By: Rimma Silverman M.D. Signed By: 08/20/23 1149 DD/ 1146 TD/TT: Jack Frame Tender: CHLOE HealthcareRadiology Study observation (narrative)NOM HealthcareUS OB GROWTHOrdered By: Radiologist Radiology on 31-48-1330[employer] Work Phone: US OB BPP W NON-STRESSon 02-29-[place], [place] [address] Ultrasound Report Signed Patient: AMY ALFARO MR#: [id number] : 1980 Acct:[id number] Age/Sex: 42 / F ADM Date: 08/18/23 Loc: [facility] 250-[address]: Camron Abad D.O. Ordering Physician: Camron Abad D.O. Date of Service: 08/18/23 Procedure(s): US OB BPP w non-stress Accession Number(s): [id number] cc: Camron Abad D.O.; Ariel Santana M.D. The [address] [address] Patient Name: AMY ALFARO MRN: [id number] date: 1980 Sex: F Assigned Patient Location: US Current Patient Location: US Accession/Order Number: [id number] Exam Date: 08/18/2023 15:05 Report Date: 08/18/2023 15:33 At the request of: CAMRON ABAD Procedure: US OB BPP w non-stress [...] left. Unknown etiology Electronically authenticated by: RIMMA SILVERMAN Date: 08/18/2023 15:33 Dictated By: Rimma Silverman M.D. Signed By: 08/18/23 1536 DD/ 1533 TD/TT: Jack Frame Tender:TBHRadiology, Radiologist, MD - 08/26/2023 [place] [address] Ultrasound Report Signed Patient: AMY ALFARO MR#: [id number] : 1980 Acct:[id number] Age/Sex: 42 / F ADM Date: 08/18/23 Loc: [facility] 250-[address]: Camron Abad D.O. Ordering Physician: Camron Abad D.O. Date of Service: 08/18/23 Procedure(s): US OB BPP w non-stress Accession Number(s): [id number] cc: Camron Abad D.O.; Ariel Santana M.D. The [address] [address] Patient Name: AMY ALFARO MRN: [id number] date: 1980 Sex: F Assigned Patient Location: US Current Patient Location: US Accession/Order Number: [id number] Exam Date: 08/18/2023 15:05 Report Date: 08/18/2023 15:33 At the request of: CAMRON ABAD Procedure: US OB BPP w non-stress [...] left. Unknown etiology Electronically authenticated by: RIMMA SILVERMAN Date: 08/18/2023 15:33 Dictated By: Rimma Silverman M.D. Signed By: 08/18/23 1536 DD/ 153 TD/TT: Jack Frame Tender: CHLOE HealthcareRadiology Study observation (narrative)NOMS HealthcareUS OB BPP W NON-STRESSOrdered By: Radiologist Radiology on 14-27-0261[employer] Work Phone: US OB BPP W NON-STRESSon 82-93-5693[place], [place] [address] Ultrasound Report Signed Patient: AMY ALFARO MR#: [id number] : 1980 Acct:[id number] Age/Sex: 42 / F ADM Date: 08/11/23 Loc: US Attending Dr: Camron Abad D.O. Ordering Physician: Camron Abad D.O. Date of Service: 08/11/23 Procedure(s): US OB BPP w non-stress Accession Number(s): [id number] cc: Camron Abad D.O.; Ariel Santana M.D. The [address] [address] Patient Name: AMY TOBARN: [id number] date: 1980 Sex: F Assigned Patient Location: [facility] Current Patient Location: Accession/Order Number: [id number] Exam Date: 08/11/2023 15:02 Report Date: 08/11/2023 15:35 At the request of: CAMRON ABAD Procedure: US OB BPP w non-stress [...] within scrotal sac bilaterally. Electronically authenticated by: ALEXI BRANCH Date: 08/11/2023 15:35 Dictated By: Alexi Branch M.D. Signed By: 08/11/23 1647 DD/ 1535 TD/TT: Jack Frame Tender:SHANTALHRadiology, Radiologist, - 08/26/2023 [place] [address] Ultrasound Report Signed Patient: AMY ALFARO MR#: [id number] : 1980 Acct:[id number] Age/Sex: 42 / F ADM Date: 08/11/23 Loc: US Attending Dr: Camron Abad D.O. Ordering Physician: Camron Abad D.O. Date of Service: 08/11/23 Procedure(s): US OB BPP w non-stress Accession Number(s): [id number] cc: Camron Abad D.O.; Ariel Santana M.D. The [address] [address] Patient Name: AMY ALFARO MRN: [facility]:[id number] date: 1980 Sex: F Assigned Patient Location: [facility] Current Patient Location: Accession/Order Number: [id number] Exam Date: 08/11/2023 15:02 Report Date: 08/11/2023 15:35 At the request of: CAMRON ABAD Procedure: US OB BPP w non-stress [...] within scrotal sac bilaterally. Electronically authenticated by: ALEXI BRANCH Date: 08/11/2023 15:35 Dictated By: Alexi Branch M.D. Signed By: 08/11/23 1647 DD/ 1535 TD/TT: Jack Frame Tender: NOMLj HealthcareRadiology Study observation (narrative)NOMS HealthcareUS OB BPP W NON-STRESSOrdered By: Radiologist Radiology on 60-00-1056[facility] Work Phone: US OB BPP W NON-STRESSon 50-37-0640[place], [place] [address] Ultrasound Report Signed Patient: AMY ALFARO MR#: [id number] : 1980 Acct:[id number] Age/Sex: 42 / F ADM Date: 08/04/23 Loc: US Attending Dr: Camron Abad D.O. Ordering Physician: Camron Abad D.O. Date of Service: 08/04/23 Procedure(s): US OB BPP w non-stress Accession Number(s): [id number] cc: Camron Abad D.O.; Ariel Santana M.D. [address] [address] Patient Name: AMY ALFARO MRN: [id number] date: 1980 Sex: F Assigned Patient Location: [facility] Current Patient Location: Accession/Order Number: [id number] Exam Date: 08/04/2023 20:12 Report Date: 08/05/2023 07:16 At the request of: CAMRON ABAD Procedure: US OB BPP w non-stress [...] biophysical profile score 8.0. Electronically authenticated by: ALEXI BRANCH Date: 08/05/2023 07:16 Dictated By: Alexi Branch M.D. Signed By: 08/05/2319 DD/ TD/TT: Jack Frame Tender:SHANTALHRadiology, Radiologist, - 08/05/2023 [place] [address] Ultrasound Report Signed Patient: AMY ALFARO MR#: [id number] : 1980 Acct:[id number] Age/Sex: 42 / F ADM Date: 08/04/23 Loc: US Attending Dr: Camron Abad D.O. Ordering Physician: Camron Abad D.O. Date of Service: 08/04/23 Procedure(s): US OB BPP w non-stress Accession Number(s): [id number] cc: Camron Abad D.O.; Ariel Santana M.D. The [address] [id number] Patient Name: AMY ALFARO MRN: [id number] date: 1980 Sex: F Assigned Patient Location: [facility] Current Patient Location: Accession/Order Number: [id number] Exam Date: 08/04/2023 20:12 Report Date: 08/05/2023 07:16 At the request of: CAMRON ABAD Procedure: US OB BPP w non-stress [...] biophysical profile score 8.0. Electronically authenticated by: ALEXI BRANCH Date: 08/05/2023 07:16 Dictated By: Alexi Branch M.D. Signed By: 08/05/23718 DD/ 5 TD/TT: Jack Frame Tender: CHLOE HealthcareRadiology Study observation (narrative)NOM RonyUS OB BPP W NON-STRESSOrdered By: Radiologist Radiology on 14-62-1717[facility] Work Phone: Urinalysis macro (dipstick) panel (U)on 07-30-2023 Bilirubin, UANegativeNegative - 4(70) +++ mg/dLNOMS HealthcareBlood, UAPositive Negative - 50 Bobby/mcLNOMS HealthcareComment on above:trace-intactClarity, UA ClearNOMS HealthcareColor, UAYellowNOMS HealthcareGlucose, UANegativeNegative - 2000(110) ++++ mg/dLNOMS HealthcareInterpretation and review of laboratory resultsAbnormalNOMS HealthcareKetones, UANegativeNegative - 160(16) ++++ mg/dL NOM HealthcareLeukocytes, UAPositiveNegative - 500+++ Suzette/mcLNOMS Healthcare Comment on above:smallNitrite, UANegativeNegative - PositiveNOMS HealthcarepH, UA6.05 - 9NOMS HealthcareProtein, UANegativeNegative - 2000(20) ++++ mg/dLNOMS HealthcareSpec Grav, UA1.0101 - 1.03NOMT HealthcareUrobilinogen, UA0.20.2 - 12 mg/dLNOMS HealthcareNOMS HealthcareUS OB GROWTHon 88-52-4184Ddq[address] [address] Ultrasound Report Signed Patient: AMY ALFARO MR#: [id number] : 1980 Acct:[id number] Age/Sex: 42 / F ADM Date: 07/23/23 Loc: [facility] Attending Dr: Camron Abad D.O. Ordering Physician: Camron Abad D.O. Date of Service: 07/23/23 Procedure(s): US OB growth Accession Number(s): [id number] cc: Camron Abad D.O.; Ariel Santana M.D. [address] [address] Patient Name: AMY ALFARO MRN: [facility]:[id number] date: 1980 Sex: F Assigned Patient Location: [facility] Current Patient Location: [facility] Accession/Order Number: [id number] Exam Date: 07/23/2023 15:00 Report Date: 07/23/2023 15:58 At the request of: CAMRON ABAD Procedure: US OB growth EXAMINATION: US [...] with growth detailed above. Electronically authenticated by: ALEXI BRANCH Date: 07/23/2023 15:58 Dictated By: Alexi Branch M.D. Signed By: 07/23/23 1604 DD/ 1558 TD/TT: Jack Frame Tender:YANELYadiologsalo, Radiologist, - 08/26/2023 [place] [address] Ultrasound Report Signed Patient: AMY ALFARO MR#: [id number] : 1980 Acct:[id number] Age/Sex: 42 / F ADM Date: 07/23/23 Loc: [facility] Attending Dr: Camron Abad D.O. Ordering Physician: Camron Abad D.O. Date of Service: 07/23/23 Procedure(s): US OB growth Accession Number(s): [id number] cc: Camron Abad D.O.; Ariel Santana M.D. The [place] [address] Patient Name: AMY ALFARO MRN: [facility]:[id number] date: 1980 Sex: F Assigned Patient Location: [facility] Current Patient Location: [facility] Accession/Order Number: [id number] Exam Date: 07/23/2023 15:00 Report Date: 07/23/2023 15:58 At the request of: CAMRON ABAD Procedure: US OB growth EXAMINATION: US [...] with growth detailed above. Electronically authenticated by: ALEXI BRANCH Date: 07/23/2023 15:58 Dictated By: Alexi Branch M.D. Signed By: 07/23/23 1601 DD/ 1558 TD/TT: Jack Frame Tender: [facility] HealthcareRadiology Study observation (narrative)NOMS HealthcareUS OB GROWTHOrdered By: Radiologist Radiology on 43-63-4142[facility] Work Phone: Urinalysis macro (dipstick) panel (U)on 07-23-2023 Bilirubin, UANegativeNegative - 4(70) +++ mg/dLNOMS HealthcareBlood, UANegative Negative - 50 Bobby/mcLNOMS HealthcareClarity, UAClearNOMS HealthcareColor, UA YellowNOMS HealthcareGlucose, UANegativeNegative - 2000(110) ++++ mg/dLNOMS HealthcareInterpretation and review of laboratory resultsAbnormalNOMS Healthcare Ketones, UANegativeNegative - 160(16) ++++ mg/dLNOMS HealthcareLeukocytes, UA PositiveNegative - 500+++ Suzette/mcLNOMS HealthcareComment on above:smallNitrite, UANegativeNegative - PositiveNOMS HealthcarepH, UA7.05 - 9N[facility] Protein, UANegativeNegative - 2000(20) ++++ mg/dLNOMS HealthcareSpec Grav, UA 1.0151 - 1.03NOMS HealthcareUrobilinogen, UA0.20.2 - 12 mg/dLNOMS HealthcareNOMS HealthcareUS OB GROWTHon 53-82-1763Rcf[address] [address] Ultrasound Report Signed Patient: AMY ALFARO MR#: [id number] : 1980 Acct:[id number] Age/Sex: 42 / F ADM Date: 06/24/23 Loc: US Attending Dr: Terese Andrea Ordering Physician: Terese Andrea Date of Service: 06/24/23 Procedure(s): US OB growth Accession Number(s): [id number] cc: Terese Andrea; Ariel Santana M.D. The [place] [id number] Patient Name: AMY ALFARO MRN: [facility]:[id number] date: 1980 Sex: F Assigned Patient Location: US Current Patient Location: US Accession/Order Number: [id number] Exam Date: 06/24/2023 09:11 Report Date: 06/24/2023 09:57 At the request of: TERESE ANDREA Procedure: US OB growth EXAMINATION: US OB [...] Normal interval growth Electronically authenticated by: RIMMA SILVERMAN Date: 06/24/2023 09:57 Dictated By: Rimma Silverman M.D. Signed By: 06/24/23 1000 DD/ 0957 TD/TT: Jack Frame Tender:YANELYadiologsalo, Radiologist, - 06/24/2023 [place] [address] Ultrasound Report Signed Patient: AMY ALFARO MR#: [id number] : 1980 Acct:[id number] Age/Sex: 42 / F ADM Date: 06/24/23 Loc: US Attending Dr: Terese Andrea Ordering Physician: Terese Andrea Date of Service: 06/24/23 Procedure(s): US OB growth Accession Number(s): [id number] cc: Terese Andrea; Ariel Santana M.D. [place] [address] Patient Name: AMY ALFARO MRN: [id number]:[id number] date: 1980 Sex: F Assigned Patient Location: US Current Patient Location: US Accession/Order Number: [id number] Exam Date: 06/24/2023 09:11 Report Date: 06/24/2023 09:57 At the request of: TERESE ANDREA Procedure: US OB growth EXAMINATION: US OB [...] Normal interval growth Electronically authenticated by: RIMMA SILVERMAN Date: 06/24/2023 09:57 Dictated By: Rimma Silverman M.D. Signed By: 06/24/23 1000 DD/ 0957 TD/TT: Jack Frame Tender: CHLOE HealthcareRadiology Study observation (narrative)[facility] HealthcareUS OB GROWTHOrdered By: Radiologist Radiology on 06-04-5654NDLLSaint Louis University [facility] Work Phone: cBC AUTO DIFFon 89-66-1745RMOC #0.0 103/ulNormal 0.0-0.1The [facility] SystemComment on above:Performed By: #### CBC #### [facility] [address] [place] [address] Dr. Jani HaywoodBasophils/100 WBC (Bld)0.6 %Normal0.2-2.0The [facility] Comment on above:Performed By: #### CBC #### [facility] [address] [place] [address] Dr. Jani Herron #0.1 103/ulNormal0.0-0.7The [facility] SystemComment on above: Performed By: #### CBC #### [facility] [address] [place] [address] Dr. Jani Trivediosinophils/100 WBC (Bld)2.5 %Normal0.9-7.0The [facility] Comment on above:Performed By: #### CBC #### [facility] [address] [place] [address] Dr. Jani Trivedirythrocyte distribution width (RBC) [Ratio]13.7 %Typwfy55.0-15.0 The [facility] SystemComment on above:Performed By: #### CBC #### [facility] [address] [place] [address] Dr. Jani HaywoodHematocrit (Bld) [Volume fraction]40.3 %Vclorz31.0-48.0The [facility] SystemComment on above:Performed By: #### CBC #### [facility] [address] [place] [address] Dr. Jani HaywoodHemoglobin (Bld) [Mass/Vol]12.7 g/bTYcffox50.0-16.0The [facility] SystemComment on above:Performed By: #### CBC #### [facility] [address] [place] [address] Dr. Jani Ruiz #0.01 10e3/ulNormal0.00-0.03The [facility] SystemComment on above:Performed By: #### CBC #### [facility] [address] [place] [address] Dr. Jani Ruiz %0.2 %Normal0.0-0.5The [facility] SystemComment on above: Performed By: #### CBC #### [facility] [address] [place] [address] Dr. Jani Winter #1.8 103/ulNormal1.2-3.8The [facility] SystemComment on above:Performed By: #### CBC #### [facility] [address] [place] [address] Dr. Jani Harrisonhocytes/100 WBC (Bld)35.2 %Smiwcm74.5-60.0The [facility] SystemComveterans affairs [facility] on above:Performed By: #### CBC #### [facility] [address] [place] [address] Dr. Jani RevelesUAL DIFF REQNONormalThe [facility] SystemComment on above: Performed By: #### CBC #### [facility] [address] [place] [address] Dr. Jani Ash (RBC) [Entitic mass]30.5 sjLglosa47.7-34.0The [facility] SystemComment on above:Performed By: #### CBC #### [facility] [address] [place] [address] Dr. Jani Ash (RBC) [Mass/Vol]31.5 g/xOObgeti26.9-35.2The [facility] SystemComment on above:Performed By: #### CBC #### [facility] [address] [place] [address] Dr. Jani Ash (RBC) [Entitic vol]96.9 jKCpkuyd94.0-99.0The [facility] SystemComment on above:Performed By: #### CBC #### [facility] [address] [place] [address] [address] Jani Barber #0.4 103/ulNormal0.3-0.8The [facility] SystemComment on above:Performed By: #### CBC #### [facility] [address] [place] [address] Dr. Jani Cornejoocytes/100 WBC (Bld)8.1 %Normal1.7-12.0The [facility] Comment on above:Performed By: #### CBC #### [facility] [address] [place] [address] Dr. Jani Salas #2.8 103/ulNormal1.4-6.5The [facility] SystemComment on above:Performed By: #### CBC #### [facility] [address] [place] [address] Dr. Jani Laroseutrophils/100 WBC (Bld)53.4 %Zmmzgl07.0-75.0The [facility] SystemComment on above:Performed By: #### CBC #### [facility] [address] [place] [address] Dr. Jani Crowderlet mean volume (Bld) [Entitic vol]10.0 fLNormal9.5-13.5The [facility] SystemComment on above:Performed By: #### CBC #### [facility] [address] [place] [address] Dr. Jani HaywoodPLT271 103/upHqinmm893-711Kqi [facility] SystemComment on above: Performed By: #### CBC #### [facility] [address] [place] [address] Dr. Jani HaywoodRBC4.16 106/ulCritically low4.20-5.40The [facility] SystemComment on above:Performed By: #### CBC #### [facility] [address] [place] [address] Dr. Jani HaywoodWBC5.2 103/ulNormal4.0-11.0The [facility] SystemComment on above: Performed By: #### CBC #### [facility] [address] [place] [address] [address] Jani Ramires 80-03-3086Xqbx [Mass/Vol]64.0 ug/bUMyugpe27.0-170.0The [facility] SystemComment on above:Performed By: #### A1C #### [facility] [address] [place] [address] Dr. Jani HaywoodPROF 14(COMP METB)on 05-06-5859Yozmnzt [Mass/Vol]3.5 g/dLNormal 3.4-5.0The [facility] SystemComment on above:Performed By: #### CMP #### [facility] [address] [place] [address] Dr. Jani HaywoodAlbumin/Globulin [Mass ratio]0.9 {ratio}NormalThe [facility] SystemComment on above:Performed By: #### CMP #### [facility] [address] [place] [address] Dr. Jani LandaP [Catalytic activity/Vol]73 U/UFwirur95-276Fov [facility] SystemComment on above:Performed By: #### CMP #### [facility] [address] [place] [address] Dr. Jani Carrasquillo [Catalytic activity/Vol]12 U/LCritically mfw34-82Vbc [facility] SystemComment on above:Performed By: #### CMP #### [facility] [address] [place] [address] Dr. Jani Farfan gap [Moles/Vol]11.0 mmol/LNormalThe [facility] Comment on above:Performed By: #### CMP #### [facility] [address] [place] [address] Dr. Jani HaywoodAST [Catalytic activity/Vol]13 U/LCritically otd63-03Lii [facility] SystemComment on above:Performed By: #### CMP #### [facility] [address] [place] [address] Dr. Jani HaywoodBilirubin [Mass/Vol]0.5 mg/dLNormal0.2-1.0The [facility] Comment on above:Performed By: #### CMP #### [facility] [address] [address] [address] Jani HaywoodCalcium [Mass/Vol]8.6 mg/dLNormal8.5-10.1The [facility] Comment on above:Performed By: #### CMP #### [facility] [address] [address] [address] Jani HaywoodChloride [Moles/Vol]105 mmol/KEkycst35-961Van [facility] Comment on above:Performed By: #### CMP #### [facility] [address] [address] [address] Jani HaywoodCO2 [Moles/Vol]28.8 mmol/CEhquah22.0-32.0The [facility] Comment on above:Performed By: #### CMP #### [facility] [address] [place] [address] Dr. Jani HaywoodCreatinine [Mass/Vol]0.87 mg/dLNormal0.55-1.02The [facility] SystemComment on above:Performed By: #### CMP #### [facility] [address] [address] [address] Jani TrivediGFR-AF PAKISTANI>60Normal>=60The [facility] SystemComment on above:Performed By: #### CMP #### [facility] [address] [address] [address] Jani TrivediGFR-NON AF PAKISTANI>60Normal>=60The [facility] SystemComment on above:Performed By: #### CMP #### [facility] [address] [address] [address] Jani HaywoodGlobulin (S) [Mass/Vol]3.7 g/dLNormalThe [facility] SystemComment on above:Performed By: #### CMP #### [facility] [address] [address] [address] Jani HaywoodGlucose [Mass/Vol]95 mg/cYXmuwcm52-772Ncr [facility] Comment on above:Performed By: #### CMP #### [facility] [address] [address] [address] Jani HaywoodPotassium [Moles/Vol]3.8 mmol/LNormal3.5-5.1The [facility] Comment on above:Performed By: #### CMP #### [facility] [address] [address] [address] Jani HaywoodProtein [Mass/Vol]7.2 g/dLNormal6.4-8.2The [facility] Comment on above:Performed By: #### CMP #### [facility] [address] [address] [address] Jani HaywoodSodium [Moles/Vol]141 mmol/LVtsnya931-536Dzd [facility] Comment on above:Performed By: #### CMP #### [facility] [address] [address] [address] Jani HaywoodUrea nitrogen [Mass/Vol]12.0 mg/dLNormal7.0-18.0The [facility] SystemComment on above:Performed By: #### CMP #### [facility] [address] [address] [address] Jani HaywoodUrea nitrogen/Creatinine [Mass ratio]13.8 mg/mgNormalThe [facility] SystemComment on above:Performed By: #### CMP #### [facility] [address] [address] [address] Jani HaywoodCovid-19 PCR ([facility])on 28-47-7238OFXQ-CoV-2 (COVID-19) RNA CAROLE+probe Ql (Unsp spec)Not detectedNormalNOT DETECTEDThe [facility] Comment on above:Result Comment: This test is not yet approved or cleared by the [place] FDA. When there are no FDA-approved or cleared tests available, and other criteria are met, FDA can make tests available under an emergency access mechanism called an Emergency Use Authorization (EUA). The EUA for this test is supported by the Front End Web Developer of Health and Human Service's (HHS's) declaration [...] and symptoms consistent with SARS-CoV-2.Performed By: #### CVDTBH #### [facility] [address] [place] [address] Dr. Jani HaywoodUS PREG <14 WKSon 59-45-6485TS PREG <14 WKSEXAMINATION: US PREG <14 WKS [...] was notified of these findings by the buckle attaching machine operator at time of imaging. Electronically authenticated by: ALEXI BRANCH Date: 2022-07-16 13:36[facility] B SURFACE ANTIGEN SCREENon 44-08-0424UGaVn ScreenNegative NormalNegativeThe [facility] SystemComment on above:Performed By: #### A1C #### [facility] [address] [place] [address] Dr. Jani HaywoodHEPATITIS C VIRUS AB W/ REFLEX QUANTon 95-39-0205OBG AB<0.1Normal 0.0-0.9The [facility] SystemComment on above:Performed By: #### HCVPCRR #### [facility] [address] [place] [address] Dr. Jani HaywoodInterpretation:CommentNormBarnesville Hospitalment on above:Result Comment: Negative Not infected with HCV, unless recent infection is suspected or other evidence exists to indicate HCV infection.Performed By: #### HCVPCRR #### [facility] [address] [place] [address] Dr. Jani Cook 1 AND 2 WITH REFLEXon 83-18-0860XGC Screen 4th Generation wRfxNon-ReactiveNormalNon ReactiveThe [facility] on above:Result Comment: HIV Negative HIV-1/HIV-2 antibodies and HIV-1 p24 antigen were NOT detected. There is no laboratory evidence of HIV infection.Performed By: #### HIV12 #### [facility] [address] [place] [address] Dr. Jani HaywoodRPR QUANTon 39-12-4906Myyqu Plasma Reagin, QuantNon-Reactive NormalNonRea<1:1The [facility] on above:Result Comment: Please Note: This test does not meet current guidelines for screening and diagnosis of syphilis. This test is intended for following treatment response in patients being treated for syphilis infection. To screen for syphilis infection, a reflex cascade that includes both RPR and a treponema-specific assay should be utilized, such as Treponema pallidum (Syphilis) Screening [place] (274752) or Rapid Plasma Reagin (RPR) Test With Reflex to Quantitative RPR and Confirmatory Treponema pallidum Antibodies (829743).Performed By: #### RPRQ #### [address] [address] [address] Jani Hager AB IGGon 83-09-1426Cugcauy Antibodies, IgG2.92 index NormalImmune >0.99The [facility] on above:Result Comment: Non- immune <0.90 Equivocal 0.90 - 0.99 Immune >0.99Performed By: #### A1C #### [facility] [address] [place] [address] Dr. Jani HaywoodCBCarmelo AUTO DIFFon 08-41-2810LGQQ #0.1 103/ulNormal0.0-0.1The [facility] Centerment on above:Performed By: #### CBC #### [facility] [address] [place] [address] Dr. Jani HaywoodBasophils/100 WBC (Bld)0.7 %Normal0.2-2.0The [facility] Comment on above:Performed By: #### CBC #### [facility] [address] [place] [address] Dr. Jani Herron #0.1 103/ulNormal0.0-0.7The [facility] SystemComment on above: Performed By: #### CBC #### [facility] [address] [place] [address] Dr. Jani Trivediosinophils/100 WBC (Bld)1.2 %Normal0.9-7.0The [facility] Comment on above:Performed By: #### CBC #### [facility] [address] [place] [address] Dr. Jani Trivedirythrocyte distribution width (RBC) [Ratio]13.7 %Bshzno47.0-15.0 The [facility] SystemComment on above:Performed By: #### CBC #### [facility] [address] [place] [address] Dr. Jani HaywoodHematocrit (Bld) [Volume fraction]37.9 %Dfjppi35.0-48.0The [facility] SystemComment on above:Performed By: #### CBC #### [facility] [address] [place] [address] Dr. Jani HaywoodHemoglobin (Bld) [Mass/Vol]12.6 g/yCSylgfn19.0-16.0The [facility] SystemComment on above:Performed By: #### CBC #### [facility] [address] [place] [address] Dr. Jani Ruiz #0.02 10e3/ulNormal0.00-0.03The [facility] SystemComment on above:Performed By: #### CBC #### [facility] [address] [place] [address] Dr. Jani Ruiz %0.3 %Normal0.0-0.5The [facility] SystemComment on above: Performed By: #### CBC #### [facility] [address] [address] [address] Jani Winter #1.6 103/ulNormal1.2-3.8The [facility] SystemComment on above:Performed By: #### CBC #### [facility] [address] [address] [address] Jani Matthewhocytes/100 WBC (Bld)21.5 %Bshvoi63.5-60.0The [facility] SystemComment on above:Performed By: #### CBC #### [facility] [address] [address] [address] Jani Madrid DIFF REQNONormalThe [facility] SystemComment on above: Performed By: #### CBC #### [facility] [address] [place] [address] Dr. Jani Ash (RBC) [Entitic mass]30.4 wbVlfdsb78.7-34.0The [facility] SystemComment on above:Performed By: #### CBC #### [facility] [address] [place] [address] Dr. Jani Ash (RBC) [Mass/Vol]33.2 g/vALzlvgf12.9-35.2The [facility] SystemComment on above:Performed By: #### CBC #### [facility] [address] [place] [address] Dr. Jani Ash (RBC) [Entitic vol]91.3 wBObhzbb72.0-99.0The [facility] SystemComment on above:Performed By: #### CBC #### [facility] [address] [place] [address] Dr. Jani Barber #0.5 103/ulNormal0.3-0.8The [facility] SystemComment on above:Performed By: #### CBC #### [facility] [address] [place] [address] Dr. Jani Cornejoocytes/100 WBC (Bld)6.6 %Normal1.7-12.0The [facility] Comment on above:Performed By: #### CBC #### [facility] [address] [address] [address] Jani LaroseUT #5.1 103/ulNormal1.4-6.5The [facility] on above:Performed By: #### CBC #### [facility] [address] [address] [address] Jani Laroseutrophils/100 WBC (Bld)69.7 %Pavhaz43.0-75.0The [facility] on above:Performed By: #### CBC #### [facility] [address] [place] [address] Dr. Jani HaywoodPlatelet mean volume (Bld) [Entitic vol]10.2 fLNormal9.5-13.5The [facility] SystemComment on above:Performed By: #### CBC #### [facility] [address] [place] [address] Dr. Jani HaywoodPLT281 103/qxQkjqjl070-228Grm [facility] on above: Performed By: #### CBC #### [facility] [address] [place] [address] Dr. Jani HaywoodRBC4.15 106/ulCritically low4.20-5.40The [facility] on above:Performed By: #### CBC #### [facility] [address] [place] [address] Dr. Jani HaywoodWBC7.3 103/ulNormal4.0-11.0The [facility] on above: Performed By: #### CBC #### [facility] [address] [place] [address] Dr. Jani HaywoodGLYCOHEMOGLOBIN A1Con 24-06-8470VRY RECOMMENDATIONSEE BELOWNormal The [facility] on above:Result Comment: ADA RECOMMENDED LIMIT 4.0 - 6.0 ADA THERAPEUTIC TARGET < 7.0 ACTION SUGGESTED > 7.0Performed By: #### A1C #### [facility] [address] [place] [address] Dr. Yilan ChangGlucose [Mass/Vol]103 mg/dLPike Community HospitalComment on above:Performed By: #### A1C #### [facility] [address] [place] [address] Dr. Jani HaywoodHbA1c (Bld) [Mass fraction]5.2 %Normal4.5-6.2[facility] Avon HospitalComment on above:Performed By: #### A1C #### [facility] [address] [place] [address] Dr. Jani Goodwin BOX TEST PT SEND OUTon 51-95-7081SNPM TO REF LAB07/02/2022 NormalThe [facility] SystemComment on above:Performed By: #### NBOX #### [facility] [address] [place] [address] Dr. Jani HaywoodTYPE AND SCREENon 65-36-2532EVCM AND SCREENNegativeNoOhioHealth Van Wert HospitalComment on above:Performed By: #### A1C #### [facility] [address] [place] [address] Dr. Jani Layton PREG TVon 55-91-1273FW PREG TVEXAMINATION: US PREG TV HISTORY: Missed [...] weeks 2 days Electronically authenticated by: RIMMA SILVERMAN Date: 2022-06-18 16:09[facility] ACOG PANEL 2: 30 to 65on 12-03-2021..NormalThe [facility] SystemComment on above:Result Comment: Performed at: WBPerformed By: #### [id number] #### [facility] [address] [place] [address] Dr. Jani Machado Gdln ACOG Anodgim19-28QjvdlkElsOhioHealth Van Wert HospitalComment on above:Performed By: #### [id number] #### [facility] [address] [place] [address] Dr. Jani HaywoodDIAGNOSIS:CommentClermont County Hospital on above: Result Comment: NEGATIVE FOR INTRAEPITHELIAL LESION OR MALIGNANCY. Performed at: WBPerformed By: #### [id number] #### [facility] [address] [place] [address] Dr. Jani HaywoodHPV AptimaNegativeNormalNegativeThe [facility] on above:Result Comment: This nucleic acid amplification test detects fourteen high-risk HPV types (16,18,31,33,35,39,45,51,52,56,58,59,66,68) without differentiation. Performed at: =GPerformed By: #### [id number] #### [facility] [address] [place] [address] Dr. Jani HaywoodMethodology:CommentClermont County Hospital on above: Result Comment: This liquid based ThinPrep(R) pap test was screened with the use of an image guided system. Performed at: WBPerformed By: #### [id number] #### [facility] [address] [place] [address] Dr. Jani HaywoodNote:CommentClermont County Hospital on above:Result Comment: The Pap smear is a screening test designed to aid in the detection of premalignant and malignant conditions of the uterine cervix. It is not a diagnostic procedure and should not be used as the sole means of detecting cervical cancer. Both false-positive and false-negative reports do occur. . Performed at: WBPerformed By: #### [id number] #### [facility] [address] [place] [address] Dr. Jani HaywoodPerformed by:CommentClermont County Hospital on above: Result Comment: Nikki Schwab, Information Systems Administrator (ASCP) Performed at: WBPerformed By: #### [id number] #### [facility] [address] [place] [address] Dr. Jani HaywoodSpecimen adequacy:CommentNormalThe Korey HospitalComment on above:Result Comment: Satisfactory for evaluation. Endocervical and/or squamous metaplastic cells (endocervical component) are present. Performed at: WBPerformed By: #### [id number] #### [facility] [address] [place] [address] Dr. Jani Haywood Vital Signs Date TimeVital SignValuePerforming VbyeakefuNkvdiqxn67-42-6727 09:27-0500Body mass index (BMI) [Ratio]20.73 kg/n4Eejsn Pollo DO Work Phone: [phone] [place], [place] [address]Kpjytgmtja70-82-9964 09:27-0500Body gkuckg41.07 kgCorey Pollo DO Work Phone: [phone])[facility] [place], [place] [address]Qetxmhhsph58-28-3949 09:27-0500Diastolic blood mm[Hg]Camron Pollo DO Work Phone: [phone] [place], [place] [address]Evtybuszrz67-44-4656 09:27-0500Systolic blood hhqrewxg906 mm[Hg]Camron Pollo DO Work Phone: [phone])353-[address] [place], [place] [address]Rpztivefyj39-02-3098 09:32-0500Body mass index (BMI) [Ratio]25.88 kg/d7Iqlet Pollo DO Work Phone: [phone]-[facility] CenterYtkqabnbah84-99-3647 09:32-0500Body .28 kgCorey Pollo DO Work Phone: [phone]-[facility] CenterPxhikpecng84-40-7022 09:32-0500Diastolic blood icdrrvqf89 mm[Hg]Camron Pollo DO Work Phone: 1(314)851-[address] [place], [place] [address]Kbhnnvutmd31-48-7241 09:32-0500Systolic blood nakpevvi588 mm[Hg]Camron Pollo DO Work Phone: 1(640)[facility] [place], [place] [address]Awhufmswac76-59-4593 14:33-0500Body mass index (BMI) [Ratio]26.24 kg/m2Terese REYES Work Phone: [phone]-[facility] CenterSpdopmxzdf10-72-8300 14:33-0500Body xyhxgg15.19 kgTerese REYES Work Phone: [phone])483-[address] [place], [place] [address]Wpdvgxkruy51-14-1719 14:33-0500Diastolic blood mbaezwje77 mm[Hg]Terese REYES Work Phone: noMiss[facility] Medical CenterKxneoqwxsp23-89-1013 14:33-0500Systolic blood gjabghmx389 mm[Hg]Terese REYES Work Phone: noMissouri [facility] Medical CenterWqqehrndic43-35-2529 14:10-0400Body opflbx704.02 cmSceasarbaudilio Oconnor Other [employer] Other 06-05-2022 14:10-0400Body mass index (BMI) [Ratio] 20.55 kg/j1Nidxvuttabaudilio Oconnor Other [employer] Other 06-05-2022 14:10-0400Body .9 [degF] Megan Oconnor Other [employer] Other 06-05-2022 14:10-0400Body .62 kgStnoreenaliciaaj Elvin Other [employer] Other 06-05-2022 14:10-3132LaE7% (BldA) [Mass fraction]97 % Megan Elvin Other [employer] Other Encounters Encounter DateEncounter TypeCare ProviderFacilityStart: 04-24-2025 End: 13-29-8019Xqaojqaeh Result EncounterCorey Pollo DO Work Phone: noms External Department UnsolicitedStart: 04-24-2025 End: 84-57-3337Yxzpkalfx Result EncounterCorey Pollo DO Work Phone: noms External Department UnsolicitedStart: 04-21-2025 End: 52-08-4286Wybdcpbsd Result EncounterCorey Pollo DO Work Phone: noZT External Department UnsolicitedStart: 04-21-2025 End: 60-65-3751Pzkmcjutq Result EncounterCorey Pollo DO Work Phone: noms External Department UnsolicitedStart: 04-20-2025 End: 63-99-6733Rxijbp outpatient visit 15 minutesAmy Zully REYES Work Phone: noms Jeddo OBGYNComment on above:Missed ([facility])Start: 04-20-2025 End: 59-92-9099vhorlmelpjIGK RAMEYNot AvailableStart: 10-28-2024 End: 53-93-4385qfnccgswwcITJMJVR S WRIGHTNot AvailableStart: 10-28-2024 End: 81-45-7914Yqlachg encounter procedurePrecious Lj Yannick AUD Work Phone: noms AUDComment on above:Sensorineural hearing loss, bilateral (Primary Dx)Start: 10-28-2024 End: 59-54-5241Rxabvb Shania Lj Yannick AUD Work Phone: noms AUDStart: 10-28-2024 End: 72-51-8841Mlurgd Shania Lj Yannick AUD Work Phone: noms AUDStart: 07-21-2024 End: 91-35-6449lcxolujqchBJYPM HAHNFacility:[facility] Daytontart: 07-21-2024 End: 00-83-5333Qkylvft encounter Evelyn Romo AUD Work Phone: AudiologyComment on above:Sensorineural hearing loss, bilateral (Primary Dx); Cochlear implant follow-upStart: 04-26-2024 End: 63-04-6978Krapuy flowsheetCorey Pollo DO Work Phone: NOMS BCP OBStart: 04-26-2024 End: 93-17-6891Loahxz flowsheetCorey Pollo DO Work Phone: NOED BCP OBStart: 04-26-2024 End: 93-88-5274Qemnvjhxi Result EncounterCorey Pollo DO Work Phone: noms External Department UnsolicitedStart: 04-26-2024 End: 63-82-8200Dspsdrg encounter procedureCorey Pollo DO Work Phone: noms HealthcareStart: 04-26-2024 End: 06-08-2053Xgfokxaq preventive med est patient 40-64yrsCorey Pollo DO Work Phone: noms BCP OBComment on above:Well woman exam with routine gynecological exam; Breast cancer screening by mammogramStart: 04-26-2024 End: 15-20-7714mgiwtmnuedEAPGR FAZIONot AvailableStart: 09-08-2023 End: 61-70-8102Xfgbutkay Result EncounterCorey Pollo DO Work Phone: noms External Department UnsolicitedStart: 09-08-2023 End: 91-29-9150Ejnbwfalg Result EncounterCorey Pollo DO Work Phone: noms External Department UnsolicitedStart: 09-01-2023 End: 46-63-9331Vhhikcodr Result EncounterCorey Pollo DO Work Phone: noms External Department UnsolicitedStart: 09-01-2023 End: 88-92-2287Vdnvhppne Result EncounterCorey Pollo DO Work Phone: noms External Department UnsolicitedStart: 08-25-2023 End: 57-37-0380Eachguyuf Result EncounterCorey Pollo DO Work Phone: noms External Department UnsolicitedStart: 08-25-2023 End: 02-37-5741Lpgadmbjk Result EncounterCorey Pollo DO Work Phone: noms External Department UnsolicitedStart: 08-21-2023 End: 40-83-8767Gxftxkypg Result EncounterCorey Pollo DO Work Phone: noms External Department UnsolicitedStart: 08-21-2023 End: 64-19-5789Pbrchrepj Result EncounterCorey Pollo DO Work Phone: noms External Department UnsolicitedStart: 08-20-2023 End: 01-75-8922Dhzukikyc Result EncounterTerese Zully REYES Work Phone: noms External Department UnsolicitedStart: 08-20-2023 End: 24-58-0996Uctgbsphm Result EncounterTerese REYES Work Phone: noms External Department UnsolicitedStart: 08-18-2023 End: 91-19-4968Zrkagcdht Result EncounterCorey Pollo DO Work Phone: noms External Department UnsolicitedStart: 08-18-2023 End: 16-60-4801Tsdqxgojo Result EncounterCorey Pollo DO Work Phone: noms External Department UnsolicitedStart: 08-11-2023 End: 71-47-4194Kmvstirci Result EncounterCorey Pollo DO Work Phone: noms External Department UnsolicitedStart: 08-11-2023 End: 55-88-4311Tyedvdtjp Result EncounterCorey Pollo DO Work Phone: noms External Department UnsolicitedStart: 08-05-2023 End: 71-74-4282Sfoabbgmy Result EncounterCorey Pollo DO Work Phone: noms External Department UnsolicitedStart: 08-05-2023 End: 66-81-2858Adbshalxf Result EncounterCorey Pollo DO Work Phone: noms External Department UnsolicitedStart: 07-30-2023 End: 24-72-5304Tbsjyyvd flow sheetCorey Pollo DO Work Phone: NOIV BCP OBComment on above:Third trimester ; Small for gestational age (SGA)Start: 07-23-2023 End: 00-08-3633Knnyccoo flow sheetTerese REYES Work Phone: noms BCP OBComment on above:Low blood pressure reading; Dizziness; Feeling faint; Third trimester pregnancyStart: 07-23-2023 End: 08-75-9750Rkqmvitco Result EncounterCorey Pollo DO Work Phone: noms External Department UnsolicitedStart: 07-23-2023 End: 42-37-9555Zzjboeqkf Result EncounterCorey Pollo DO Work Phone: noms External Department UnsolicitedStart: 06-24-2023 End: 18-16-8003Bexkdvios Result EncounterTerese REYES Work Phone: noms External Department UnsolicitedStart: 06-24-2023 End: 12-78-5263Psabwdbcs Result EncounterTerese REYES Work Phone: noms External Department UnsolicitedStart: 10-10-2022 Telephone encounterLasarwat [facility] WilliamsComment on above:Release Coordinator - OtherStart: 43-15-0015yasfqpyfmeRxgsz Hahn AUD Work Phone: AudiologyStart: 09-24-2022 End: 47-43-9132Ssoqjab encounter procedureDahood Becker PA-C Work Phone: OtolaryngologyComment on above:Cochlear implant in place (Primary Dx); Sensorineural hearing loss, asymmetrical; Sensorineural hearing loss, bilateralStart: 07-29-2022 End: 22-74-0629hhtbtssewrKQ ARIEL SANTANAFacility:T2Adtih: 07-18-2022 End: 26-59-3946csoifjtqygDU ROSA CARTERFacility:Q0Wwajf: 13-85-2268Ufsxhswfc for preprocedural laboratory examinationDR ROSA [facility] Start: 07-16-2022 End: 45-79-5905blvelutddfIQ ROSA CARTERFacility:C4Zrimj: 07-16-2022 End: 78-84-7456Lykysmcau for preprocedural laboratory examinationDR ROSA Roycility:T7Eeqcr: 07-02-2022 End: 33-32-7082yyskyenofxLK ROSA KARASIKFacility:U9Xkpfv: 06-18-2022 End: 90-15-0035hztqjlsqnwCH ROSA CARTERFacility:G4Wvlqa: 11-27-2021 End: 89-94-3442jwigcjdsbuGA ROSA CARTERFacility:T3Xvemm: 11-24-2021 End: 19-49-5697bfpsrspsjpJclucpvim Bre[place] Other [employer] Other Start: 06-72-2752Eomozq outpatient visit 25 minutes Megan OconnorFPG [facility] Kevin Procedures DateProcedureProcedure DetailPerforming ClinicianStart: 65-59-7621CGL CBC WITH AUTO DIFFCorey Pollo DO Work Phone: Start: 30-67-2822NLL 12-LEADCorey Pollo DO Work Phone: Start: 93-08-6387KKTVGBE IMPLANTABLE DEVICES (E.G. COCHLEAR IMPLANTS (CI), BONE ANCHORED (SHAWN), SENSORY DEVICES)Yulissa Romo AUD Work Phone: Start: 05-55-1908FZZ,APTIMA HPV,AGE GDLNCorey Pollo DO Work Phone: Start: 72-14-7209Djwhrqyfggg observation [Identifier] in Cervix by Cyto stainCorey Pollo DO Work Phone: Start: 42-04-7446ECNV CBC WITH PLATELET NO DIFFERENTIALCorey Pollo DO Work Phone: Start: 79-22-2030OWO DRUG SCREEN RAPID (URINE)Camron Pollo DO Work Phone: Start: 06-49-1481ZL OB BPP W NON-STRESSCorey Pollo DO Work Phone: Start: 33-08-6454SV OB BPP W NON-STRESSCorey Pollo DO Work Phone: Start: 37-55-4234TF OB BPP W NON-STRESSCorey Pollo DO Work Phone: Start: 13-16-7655ZE OB BPP W NON-STRESSCorey Pollo DO Work Phone: Start: 99-75-3786WY OB GROWTHAmy Zully REYES Work Phone: Start: 28-59-1516AP OB BPP W NON-STRESSCorey Pollo DO Work Phone: Start: 20-53-5102SQ OB BPP W NON-STRESSCorey Pollo DO Work Phone: Start: 12-56-6459HU OB BPP W NON-STRESSCorey Pollo DO Work Phone: Start: 34-66-5586Kvyaj dip stick/tablet rgnt non-auto w/o micrscpCorey Pollo DO Work Phone: Start: 91-03-4759JM OB GROWTHCorey Pollo DO Work Phone: Start: 99-22-7796Xzskn dip stick/tablet rgnt non-auto w/o micrscpAmy Zully REYES Work Phone: Start: 19-48-6085ZB OB GROWTHTerese REYES Work Phone: Start: 01-70-2821Nlfqxpmpfgn observation [Identifier] in Cervix by Cyto stainTerese REYES Work Phone: Plan of Treatment DateCare ActivityDetailAuthorStart: 97-59-1856RZTRYBDYBPKG (3 - PPSV23 if available, else PCV20)PNEUMOCOCCAL (3 - PPSV23 if available, else PCV20) [facility] ClinicStart: 60-66-9720Vvasu microalbumin profileDTaP,Tdap,Td Vaccine (3 - Td or Tdap)[facility] ClinicStart: 45-90-1646Bxipitjdtkcv vaccination Pneumococcal Vaccine (3 of 3 - PCV20 or PCV21)[facility] ClinicStart: 04-26-2029 Screening for malignant neoplasm of cervixNOMS HealthcareStart: 04-22-2028 Screening for malignant neoplasm of cervixNOMT HealthcareStart: 07-20-2025 End: 68-80-5214Ugjftcm encounter procedureAudiologyComment on above:CI follow up CI CheckStart: 05-01-2025 End: 17-75-3157Adblaee encounter procedureNOMS BCP OBStart: 23-57-3032QZPUY-19 Vaccine ( season)COVID-19 Vaccine ()[facility] Healthcare Start: 94-09-3842Bbxzosbbi vaccinationASHLEY REGIONAL MEDICAL CENTER HealthcareStart: 04-26-2024 End: 37-94-5500DJ Breast - bilateral ScreeningBilateral screening mammogram Imaging Routine Breast cancer screening by mammogram Expected: 04/26/2024 (Approximate), Expires: 06/26/2025[facility] Work Phone: Comment on above:Expected: 04/26/2024 (Approximate), Expires: 06/26/2025Start: 04-26-2024 End: 19-39-3273Xwhpvdi encounter procedureNOMS BCP OBComment on above:Arrived Start: 46-43-3477Abyon-19 Vaccine ()Covid-19 Vaccine ()[facility]: 59-22-7195Hphntlpns vaccinationInfluenza Vaccine (#1)[facility] HealthcareStart: 08-13-2023 End: 52-53-7485Txczljx encounter xdvtekyhp12/22/2024 11:20 AM EST Routine [facility] OB [address] [place] [phone] Camron Abad, DO [address] [place] [address] [facility] BCP OBStart: 07-30-2023 End: 72-91-4534ZW biophysical profile w non stress testUS biophysical profile w non stress test Imaging Routine Small for gestational age (SGA) Expected: 07/30/2023 (Approximate), Expires: 07/30/2024[facility] Work Phone: Comment on above:Expected: 07/30/2023 (Approximate), Expires: 07/30/2024Start: 07-30-2023 End: 40-99-3957Ioxvwbf encounter arogrvzzo70/08/2024 9:20 AM EST Routine [facility] [address] [place] [phone] Camron Abad, DO [address] [place] [address] [facility] OBStart: 07-23-2023 End: 37-29-6663Qzlbrwizjcsy / ancillary services wqwteqglbj77/01/2024 3:00 PM EST Ancillary Procedure [facility] OB [address] [place] [phone] [facility] OBStart: 94-69-1215Tflavvhup vaccination [facility]: 76-90-7545AMTSEMTDJY ASSESSMENTDEPRESSION ASSESSMENT [facility]: 54-25-1755RZLCZ-19 VACCINE (3 - Booster for Pfizer series)COVID-19 VACCINE (3 - Booster for Pfizer series)[facility]: 61-12-6248KktsjvlulhyANAGOPDTJUtfuqwdxe ClinicStart: 59-02-9256Yxpdddhph for malignant neoplasm of breastNOMS HealthcareStart: 44-63-5732ZBL TESTINGHPV TESTINGAshtabula County Medical Centertart: 57-33-6938TTN Vaccines (1 - 3-dose SCDM series)HPV Vaccines (1 - 3-dose SCDM series)[facility] CenterStart: 26-33-0640VNB TESTINGPAP TESTINGAshtabula County Medical Centertart: 17-58-3214Uxexbgrqe for malignant neoplasm of cervixCervical Cancer ScreeningAshtabula County Medical Centertart: 49-34-6603Kxqpyicfe B Vaccine (1 of 3 - 19+ 3-dose series)Hepatitis B Vaccine (1 of 3 - 19+ 3-dose series)[facility]: 26-80-7213Couzlgjst B Vaccines (1 of 3 - 19+ 3- dose series)Hepatitis B Vaccines (1 of 3 - 19+ 3-dose series)[facility] Start: 90-40-3805Avpvy microalbumin profileDTAP,TDAP,TD (1 - Tdap)[facility]: 52-80-1721Esfdpeb ScreeningAnxiety ScreeningAshtabula County Medical Centertart: 39-07-2923Aqfeklipwp ScreeningDepression ScreeningAshtabula County Medical Centertart: 15-34-7611YFJDWCYTS C SCREENINGHEPATITIS C SCREENINGAshtabula County Medical Centertart: 83-96-1566Xazvmcelj C screeningHepatitis C ScreeningAshtabula County Medical Centertart: 26-34-1905YWK SCREENINGHIV SCREENINGAshtabula County Medical Centertart: 34-69-0831RFZ screeningHIV ScreeningAshtabula County Medical Centertart: 29-79-3495FWmQ/Tdap/Td Vaccines (1 - Tdap)DTaP/Tdap/Td Vaccines (1 - Tdap)[facility] HealthcareStart: 54-05-6247RDV Vaccines (1 of 1 - Standard series)MMR Vaccines (1 of 1 - Standard series)[facility]OM HealthcareStart: 01-55-5381OLBDTFPCJ B (1 of 3 - 3-dose series)HEPATITIS B (1 of 3 - 3-dose series)[facility]: 02-04-8373Thtrtweum for malignant neoplasm of colonNOMT HealthcareTHIN PREP TIS PAP AND HR HPV DNATHIN PREP TIS PAP AND HR HPV DNA Pathology and Cytology Routine Well woman exam with routine gynecological exam Ordered: 04/26/2024[facility] CenterComment on above:Ordered: 04/26/2024 Immunizations Immunization DateImmunizationNotesCare HbburwhsXzvxweme93-74-3600nrsmqjidl virus vaccine, unspecified formulationTerese REYES Work Phone: [facility] CenterShupcoxnmb32-20-3159fxkmafbckbvp polysaccharide vaccine, 23 valentDavid Eugenio PHILLIPS Work Phone: [facility]Rtpdse28-41-7640sdcbklrohqay conjugate vaccine, 13 valentDavid Eugenio REYES-Carmelo Work Phone: [facility] Payers DatePayer CategoryPayerPolicy [id number] County HospitalBCBS [id number] [id number] Health Insurance [id number]1-1835Mlcxawp 1.2.840.523373.1.13.159.2.7.3.136[id number] 2.0.1.373137.3.57[id number] 2.840.1.041368.3.57[id number] 2.0.1.776217.3.579.[id number] 2.16840.1.519264.3.57[id number] 2.840.1.940249.3.57[id number] 2.16840.1.700297.3.579.[id number] 2.160.1.810759.3.579.[id number] 2.16840.1.282329.3.579.2.070658-28-5012Ojmstbw43703920 2.16840.1.196914.3.579.2.99[id number] 2.0.1.750765.3.579.2.235896-86-9793Apeyyhj9136644 2.0.1.988170.3.579.2.632378-24-4801Fuhx Cross Victor Manuel [id number] 2.0.1.419700.06Dpkdugg6634306 2.0.1.569851.3.579.2.593 Social History DateTypeDetailFacilityStart: 03-16-2023 End: 95-89-5667Jxa Assigned At [facility] [employer] Other Start: 09-24-2022 End: 46-94-6358Ywbbphd smoking status NHISNever smoked tobaccoChildren'S Hospital Of [facility] Start: 09-24-2022 End: 79-82-7268Klhdjpm use and exposureSmokeless tobacco non-userAshtabula County Medical Centertart: 35-17-7591Cuwnxty intakeCurrent non-drinker of alcohol (finding) [facility]: 75-72-7770Kup Assigned At [facility] Start: 07-23-2023 End: 01-95-8261Hnxcezk intakeEx-drinker (finding)[facility] HealthcareStart: 03-16-2023 End: 33-09-4265Rkvhfbe of Social functionNOMT HealthcareStart: 66-50-8310Psvwamw Commentoccasional alcohol use, Caffeine intake: noneNOMS HealthcareStart: 14-98-4838ZnzctrlajTJCG HealthcareStart: 83-89-1822Nrtjzx identityIdentifies as female gender (finding)[facility] HealthcareStart: 62-98-0075[place] orientation Heterosexual (finding)[facility] HealthcareStart: 92-92-2943Lryroafa Score (1-100), lower number is lower tyxz17[facility] Medical Equipment Procedure CodeEquipment CodeEquipment Original TextEquipment IdentifierDates Kri-Gf-S-Kind Implant - [id number]: 03-75-9041Saumxfe on above: Description: NUCLEUS SOUND PROCESSORSImplant Nucleus Cochlear Slim Modiolar Electrode Ci532 Sterile Latex Free - [id number]: 09-02-2017 Goals DatePatient GoalDesired Activity/StatePersonal health goal Clinical Notes 11-24-2021 to 04-20-2025 Note Date & CsofMfrvPmtqfvng49-71-2022 History of Present illness Narrative* ERIC Smallwood - 04/20/2025 1:40 PM EDT Reason for Appointment: Patient ID: Amy Alfaro is a 44 y.o. female who presents for No chief complaint on file. Patient presents today for Consult appointment. MEDICATIONS Current Outpatient Medications Medication Instructions cetirizine (ZYRTEC) 10 mg, Oral, Daily ALLERGIES Allergies Allergen Reactions Octacosanol Cough Other Unknown PROBLEMS Active Ambulatory Problems Diagnosis Date Noted Small for gestational age (SGA) ([facility]) 08/27/2023 Resolved Ambulatory Problems Diagnosis Date Noted [...] nursing note reviewed. Exam conducted with a slot router present. Vitals: Estimated body mass index is 20.73 kg/m as calculated from the following: Height as of 02/20/23: 5' 3 . Weight as of 04/26/24: 117 lb. BP: NO VITALS OBTAINED AT APPOINTMENT TODAY, due to ultrasound results. LMP: 02/14/25 Assessment/Plan ICD-10-CM 1. Missed ([facility]) O02.1 Patient and spouse present follow up [...] to be sent to PAT at [facility]. Documented by Marge Alford LPN on behalf of: Tea Sheehna, MSN, PHOTOENGRAVING PHOTOGRAPHER-BC documented in this encounterSaint Louis University Health Science CenterUtzrsxuift40-08-7050 History of Present illness Narrative* ISRAEL Ordaz - 10/28/2024 3:30 PM EDT EOW service: Pt was seen today to have her right hearing aid sent for end of warranty care. She hasno concerns with the instrument at this time. Programmed a [employer] P50 BI for interim use. Pt's PANTOJA sent to [employer] for check/repair. Once received, pt to be contacted for cloth picker after settingsare verified. Pt prefers cloth picker in [place] location documented in this encounterSaint Louis University Health Science CenterRwvahnlhrs53-09-5773 History of Present illness Narrative* Yulissa Romo AUD - 07/21/2024 8:30 AM EST Images from the original note were not included. Head [facility] Neck [facility] Section of Allied Hearing, Speech and Balance Services COCHLEAR IMPLANT ADULT PROGRAMMING Name: Amy ALFARO CCF#: [id number] Date of Service: July 21, 2024 Date of : 1980 Age: [age] year old COCHLEAR IMPLANT INFORMATION (see below for all device details) Right ear: Phonak Audeo [employer] Hearing Aid that was fit at an outside facility (November 2021) and is being managed by that facility. Left ear: External Processor: Cochlear Opez [id number] (Nucleus 8; upgraded around January 2023) Processor SN: [id number] Processor ([id number]) SN: [id number] Magnet strength: 2 Internal Device: Cochlear CI532 Profile with Slim Modiolar Electrode Array Internal Device SN: [id number] Inactive electrodes: None Surgery Date: 09/02/2017 Initial activation date: 09/29/217 Surgeon: Reyna Yeung M.D. Accessories: Remote Control (CR310) Mini Microphone 2+ Phone Clip HISTORY: Ms. ALFARO was seen for annual evaluation of the device. The patient reported: Processor and [id number] coil were replaced in May 2024 as [...] 6; Sensitivity: 12) before programming. See the [facility] HospitalForm Audiogram for obtained thresholds. Speech perception testing was completed at 60 hand knitter using recorded stimuli in the sound field at 0 degrees azimuth. NOTE: The contralateral ear was plugged and muffed during testing. The following testing and results were obtained: Fxqqgsxft-Mijdijj-Wddgengcj Words (CNC) Test Condition List # Phonemes [...] minutes SARAH Hastings Doctor of Audiology ([place]) Brass Pourer I verify that I have reviewed the history, test results, and interpretation for this patient. Eloisa Champion, GIOVANNY/A Clinical Information Management Specialist documented in this encounterChildren'S Hospital [facility]01-30-2025 NoteHNO ID: [id number] Author: YULISSA ROMO AUD Service: ? Author Type: Information Management Specialist Type: Progress Notes Filed: 07/21/2024 11:17 Note Text: [facility] Section of Allied Hearing, Speech and Balance Services COCHLEAR IMPLANT ADULT PROGRAMMING Name: Amy ALFARO [facility] [id number] Date of Service: July 21, 2024 Date of : 1980 Age: [age] year old COCHLEAR IMPLANT INFORMATION (see below for all device details) Right ear: Phonak Audeo [employer] Hearing Aid that was fit at an outside facility (November 2021) and is being managed by that facility. Left ear: External Processor: Cochlear [employer] [id number] (Nucleus 8; upgraded around January 2023) Processor SN: [id number] Processor ([id number]) SN: [id number] Magnet strength: 2 Internal Device: Cochlear CI532 Profile with Slim Modiolar Electrode Array Internal Device SN: [id number] Inactive electrodes: None Surgery Date: 09/02/2017 Initial activation date: 09/29/217 Surgeon: Reyna Yeung M.D. Accessories: Remote Control (CR310) Mini Microphone 2+ Phone Clip HISTORY: Ms. ALFARO was seen for annual evaluation of the device. The patient reported: Processor and [id number] coil were replaced in May 2024 as [...] Speech perception testing was completed at 60 hand knitter using recorded stimuli in the sound field at 0 degrees azimuth. NOTE: The contralateral ear was plugged and muffed during testing. The following testing and results were obtained: Pdxuhtiuv-Uvgdvgd-Fkxodxran Words (CNC) Test Condition List # Phonemes [...] Section of the C (more content not included)...[facility]11-05-2024 History of Present illness Narrative* Hailey Ocampo [...] nursing note reviewed. Exam conducted with a slot router present. Vitals: Estimated body mass index is [...] by Hailey Ocampo LPN on behalf of: Camron Abad DO documented in this encounterSaint Louis University Health Science CenterJnktkoaqzh75-65-0546 History of Present illness Narrative* Camron Abad DO - 07/30/2023 9:20 AM EST [...] week for routine OB appointment. Documented by Camron Abad DO on behalf of: Camron Abad DO documented in this encounterSaint Louis University Health Science CenterUqdzmupxsg11-11-6518 History of Present illness Narrative* ERIC Smallwood [...] behalf of: ERIC Smallwood documented in this encounterSaint Louis University Health Science CenterJqubdokiel45-03-6571 Miscellaneous Notes* Telephone Encounter - Pamelauche Olmedo - 10/10/2022 3:51 PM EDT Customs Broker: Katerina Mina Patient: Hasmukh Alfaro 1980 Clinic: [facility] Information Management Specialist: Dr. Yulissa Romo Appointment Length: 45 Minutes What are you looking to accomplish?: I d like to learn more about the Nucleus 8 and the process of upgrading Recipient's Stated Reason for Upgrading Clinic Request - Information Management Specialist recommended it [employer] - Processor [...] steps are Acquisition Methods Recipient will receive Ipp-wn-Ojxshu cost estimate once order placed Next Steps If recipient decides to move forward with pursuing a Nucleus 8 upgrade and provides us with the necessary order information, we will start an order on their behalf. You will hear from Cochlear s Equipment Manager team, via email/DocuSign to gain your approval or regarding an LMN to allow this patient to move forward in the process. Following completion of the upgrade process, I will invite the recipient to schedule time for a complimentary onboarding with our [employer] team so they can begin to maximize the use of their new Cochlear equipment. documented in this encounterChildren'S Hospital Of [facility]04-20-2023 History of Present illness Narrative* ISRAEL Champion [...] any questions. Upgrade Consultation Clinic Patient Report Customs Broker: Katerina Mina Patient: Hasmukh Alfaro 1980 Clinic: [facility] Information Management Specialist: Dr. Yulissa Romo Appointment Length: 45 Minutes What are you looking to accomplish?: I d like to learn more about the Nucleus 8 and the process of upgrading Recipient's Stated Reason for Upgrading Clinic Request - Information Management Specialist recommended it [employer] - Processor [...] steps are Acquisition Methods Recipient will receive Qvi-ua-Uljjdb cost estimate once order placed Next Steps If recipient decides to move forward with pursuing a Nucleus 8 upgrade and provides us with the necessary order information, we will start an order on their behalf. You will hear from Cochlear s Equipment Manager team, via email/DocuSign to gain your approval or regarding an LMN to allow this patient to move forward in the process. Following completion of the upgrade process, I will invite the recipient to schedule time for a complimentary onboarding with our [employer] team so they can begin to maximize the use of their new Cochlear equipment. Warm Regards, Eloisa Vazquez, GIOVANNY/Carol Clinical Information Management Specialist documented in this encounterChildren'S Hospital Of Columbus04-05-2023 Instructions* Patient Instructions* Rimma Becker PA-C - 09/24/2022 9:[address] Audra Umanzor use his name on paperwork documented in this encounterChildren'S Hospital Of Columbus04-05-2023 History of Present illness Narrative* Rimma Becker PA-C - 09/24/2022 9:38 AM EDT History of Present Illness Ms. AMY ALFARO is a 41 year old year old female presenting for: referred by SELF And is a patient of DO Deloris Card DO [address] [id number] Communication will be via the electronic record [...] (FLONASE) 50 mcg/actuation nasal spray Use 1 [place] in each nostril as needed. multivitamin (DAILY [...] Level: 2 - Straightforward documented in this encounterChildren'S Hospital Of Columbus01-27-2023 NoteEXAMINATION: US PELVIS HISTORY: Surgical procedure COMPARISON: Ultrasound less than 14 weeks 07/16/2022 TECHNIQUE: Transabdominal and transvaginal sonographic examination. FINDINGS: Final images show an empty endometrial cavity. IMPRESSION: 1. No appreciable products of conception within endometrial cavity following dilation and curettage. Electronically authenticated by: ALEXI BRANCH Date: 2022-07-18 08:21[facility]06-05-2022 Evaluation note* Encounter Date Diagnosis Assessment [...] Nov,Fungal rash of trunk (ICD-10 - B36.9) [facility] Other Evaluation note* Diagnosis Cochlear implant in place- Primary Other postprocedural status Sensorineural hearing loss, asymmetrical Sensorineural hearing loss, bilateral documented in this encounter [facility] ColumbusEvaluation note* Diagnosis Low blood pressure reading Nonspecific low blood pressure reading Dizziness Dizziness and giddiness Feeling faint Third trimester state, incidental documented in this encounter [facility] HealthcareEvaluation note* Diagnosis Third trimester state, incidental Small for gestational age (SGA) documented in this encounter [facility] HealthcareEvaluation note* Diagnosis Well woman exam with routine gynecological exam Routine gynecological examination Breast cancer screening by mammogram documented in this encounter [facility] HealthcareEvaluation note* Diagnosis Sensorineural hearing loss, bilateral- Primary Cochlear implant follow-up Other specified aftercare following surgery documented in this encounter [facility] ColumbusEvaluation note* Diagnosis Sensorineural hearing loss, bilateral- Primary documented in this encounter [facility] HealthcareEvaluation note* Diagnosis Missed ([facility]) Missed documented in this encounter [facility] HealthcareHistory general Narrative - Reported* Type Description Date Medical History bilateral hearing loss Surgical Historycochlear implantSurgical HistoryD&C [facility] Other Summary Purpose Family History No Family [...] section and content) DATE CREATED AUTHOR 07/30/2022 [facility] DATE CREATED AUTHOR AUTHOR'S ORGANIZ ATION 07/23/[address] [facility] DATE CREATED AUTHOR AUTHOR'S ORGANIZ ATION 04/22/2025 [facility] EPIC Source Comments (unrecognize d section and content) In the event this informatio n is protected by the Federal Confidentiality of Alcohol and Drug Abuse Patient Records regulations: The Federal rules restrict any use of the information to criminally investigate or prosecute any alcohol or drug abuse patient.[facility] Of ColumbusIn the event this information is protected by the Federal Confidentiality of Alcohol and Drug Abuse Patient Records regulations: The Federal rules restrict any use of the information to criminally investigate or prosecute any alcohol or drug abuse patient.[facility] Hospital Of ColumbusIn the event this information is protected by the Federal Confidentiality of Alcohol and Drug Abuse Patient Records regulations: The Federal rules restrict any use of the information to criminally investigate or prosecute any alcohol or drug abuse patient.[facility] Hospital Of ColumbusIn the event this information is protected by the Federal Confidentiality of Alcohol and Drug Abuse Patient Records regulations: The Federal rules restrict any use of the information to criminally investigate or prosecute any alcohol or drug abuse patient.[facility] Care Teams (unrecognized sec tion and content) Team MemberRelationshipSpecialtyStart DateEnd Date Deloris Sun PCP - GeneralFamily Medicine03/15/14Team MemberRelationshipSpecialtyStart DateEnd Date Deloris Sun PCP - GeneralFamily Medicine03/15/14Team MemberRelationshipSpecialtyStart DateEnd Date Deloris Sun PCP - GeneralFamily Medicine03/15/14Team MemberRelationshipSpecialtyStart DateEnd Date Ariel Santana MD [address] [place] [address] PCP - General02/16/23Team MemberRelationshipSpecialtyStart DateEnd Date Ariel Santana MD [address] [place] [address] PCP - General02/16/23Team MemberRelationshipSpecialtyStart DateEnd Date Ariel Santana MD [address] [place] [address] PCP - General02/16/23Team MemberRelationshipSpecialtyStart DateEnd Date Ariel Santana MD [address] [place] [address] PCP - General02/16/23Team MemberRelationshipSpecialtyStart DateEnd Date Deloris Sun DO PCP - GeneralFamily [facility]03/15/14 Yulissa Romo AUD [address] [place] [address] Care PartnerAudiology01/12/24Team MemberRelationshipSpecialtyStart DateEnd Date Ariel Santana MD PCP - General02/16/23Team MemberRelationshipSpecialtyStart DateEnd Date Ariel Santana MD PCP - General02/16/23Team MemberRelationshipSpecialtyStart DateEnd Date Ariel Santana MD [address] [facility] [place] [address] PCP - General02/16/23Team MemberRelationshipSpecialtyStart DateEnd Date Ariel Santana MD [address] [place] [address] PCP - General02/16/23Team MemberRelationshipSpecialtyStart DateEnd Date Ariel Santana MD [address] [place] [address] PCP - General02/16/23 FOR RECORDS PERTAINING TO [...] BE BASED ON THE PRIMARY CLINICAL RECORDS. [facility] [employer] [facility] provides no warranty or guarantee of the accuracy or completeness of information in this document.
== END 2025-05-01 13:46 | disposition home or self-care (01) ==
LOC: LAB 13:45
PROVIDERS: PCP Family Medicine; Visit Provider Obstetrics & Gynecology
DX: Z01.419 Encounter for gynecological examination (general) (routine) without abnormal findings (principal)
CPT/HCPCS: 87624; 88175

== ENCOUNTER 2025-05-05 07:42 | Outpatient (RCR) | payer BC, SELFPAY ==
--- OUTSIDE RECORDS SUMMARY | 2025-05-01 10:00 | XMS_ITS | Encounter Summary ---
Author Organization [facility] Address [address] [place] [address] Care Team Providers Care Experimental Outboard Motors Mechanic Name Role Phone Cruz Rajan MD Primary Care Provider [phone] Reason for Visit * ReasonCommentsGynecologic Exam Encounter Details DateTypeDepartmentCare Team (Latest Contact Info)Uaiaugdgnnn49/10/2025 10:00 AM ESTOffice Visit [facility] [address] [place] [phone] Camron Abad DO [address] [facility] [address] [facility] [address] [place], [facility]11 Well woman exam with routine gynecological exam; Encounter for screening mammogram for malignant neoplasm of breast; Miscarriage ([facility]) Social History Tobacco UseTypesPacks/DayYears UsedDateSmoking Tobacco: NeverSmokeless Tobacco: NeverAlcohol UseStandard Drinks/WeekCommentsNot Currently0 (1 standard drink = 0.6 oz pure alcohol)occasional alcohol use, Caffeine intake: none CommentsNoSex and Gender InformationValueDate RecordedSex Assigned at Raooct1801/21/2023 8:01 PM EDTLegal EruFjuhos60/15/2023 6:58 PM EDTGender Identity Mibryy3201/21/2023 8:01 PM EDTSexual DkxjicdbrjnVhfakivz79/02/2023 8:01 PM EDT documented as of this encounter Last Filed Vital Signs Vital SignReadingTime TakenCommentsBlood Eevevjch127/5805/01/2025 10:04 AM EST Pulse--Temperature--Respiratory Rate--Oxygen Saturation--Inhaled Oxygen Concentration--Reqjkf68.8 kg (125 lb 1.9 oz)05/01/2025 10:04 AM WIIPhxlhr713 cm (5' 3 )05/01/2025 10:04 AM ESTBody Mass Index22.16107/01/2024 10:04 AM EST documented in this encounter Progress Notes * Tea Sheehan NP - 05/01/2025 10:00 AM EST Reason for Appointment: Patient ID: Amy Domínguez is a 44 y.o. female who presents for Gynecologic Exam Patient presents today for Annual Exam. MEDICATIONS Current Outpatient Medications Medication Instructions benzonatate (Tessalon) 200 MG capsule Every 8 hours cetirizine (ZYRTEC) 10 mg, Oral, Daily doxycycline (VIBRAMYCIN) 100 mg, 2 times daily ALLERGIES Allergies Allergen Reactions Octacosanol Cough Other Unknown PROBLEMS Active Ambulatory Problems Diagnosis Date Noted Small for gestational age (SGA) ([facility]) 08/27/2023 Resolved Ambulatory Problems Diagnosis Date Noted [...] nursing note reviewed. Exam conducted with a mathematical engineer present. Vitals: Estimated body mass index is 22.16 kg/m?? as calculated from the following: Height as of this encounter: 5' 3 . Weight as of this encounter: 125 lb 1.9 oz. BP: 102/58 No LMP recorded. Assessment/Plan ICD-10-CM 1. Well woman exam with routine gynecological exam Z01.419 THIN PREP TIS PAP AND HR HPV DNA CANCELED: THIN PREP TIS PAP AND HR HPV DNA 2. Encounter for screening mammogram for malignant neoplasm of breast Z12.31 Bilateral screening mammogram Bilateral screening mammogram 3. Miscarriage ([facility]) O03.9 Patient with recent Miscarriage and D and C and will obtain serial quant levels Annual Exam: Patient presents today for an annual exam. Patient states she is doing well and has no complaints. Pap was obtained without difficulty. Orders Placed This Encounter Procedures Bilateral screening mammogram hCG, quantitative Follow Up: Patient is to return in one year for annual unless needed otherwise. Documented by Tea Sheehan NP on behalf of: Camron Abad DO documented in this encounter Plan of Treatment DateTypeDepartmentCare Team (Latest Contact Info)Vdpyvjrbojg71/16/2026 11:00 AM ESTProcedure Visit [facility] [address] [place] [address] Camron Abad DO [address] [place] [address] NameTypePriorityAssociated DiagnosesOrder ScheduleBilateral screening mammogram ImagingRoutine Encounter for screening mammogram for malignant neoplasm of breast Expected: 05/01/2025 (Approximate), Expires: 07/01/2026THIN PREP TIS PAP AND HR HPV DNAPathology and CytologyRoutine Well woman exam with routine gynecological exam Ordered: 05/01/2025hCG, quantitativeLabRoutine Miscarriage ([facility]) WEEKLY for 4 Occurrences starting 05/01/2025 until 05/01/2026documented as of this encounter Goals GoalPatient Goal TypeAssociated ProblemsRecent ProgressPatient-Stated?Author Reminders Care PlanOB RemindersNoOpen Scheduling, Backgrounddocumented as of this encounter Visit Diagnoses Diagnosis Well woman exam with routine gynecological exam Routine gynecological examination Encounter for screening mammogram for malignant neoplasm of breast Miscarriage ([facility]) Unspecified spontaneous without mention of complication documented in this encounter Additional Health Concerns Active ProblemsNoted DateDiagnosed DateOB Wzdvnmkip99/01/2023 documented as of this encounter Care Teams Team MemberRelationshipSpecialtyStart DateEnd Date Cruz Rajan MD [address] [place] [address] PCP - General02/16/23documented as of this encounter
--- OUTSIDE RECORDS SUMMARY | 2025-05-05 07:47 | XMS_ITS | Encounter Summary ---
Author Organization [facility] Address [address] [place] [address] Care Team Providers Care Solutions Executive Cloud Sales Name Role Phone Cruz Rajan MD Primary Care Provider [phone] Encounter Details DateTypeDepartmentCare Team (Latest Contact Info)Rsmzyvshnxf43/03/2024Clinisync Result Encounter [facility] External Department Unsolicited Terese Aguila, ERIC [address] [place] [address] Social History Tobacco UseTypesPacks/DayYears UsedDateSmoking Tobacco: NeverSmokeless Tobacco: NeverAlcohol UseStandard Drinks/WeekCommentsNot Currently0 (1 standard drink = 0.6 oz pure alcohol)occasional alcohol use, Caffeine intake: none CommentsYesSex and Gender InformationValueDate RecordedSex Assigned at Wuruai9601/21/2023 8:01 PM EDTLegal MzuUhxtfb00/15/2023 6:58 PM EDTGender Identity Zbbjwr8601/21/2023 8:01 PM EDTSexual GrjdfxshxoxJkofcnvq03/02/2023 8:01 PM EDT documented as of this encounter Plan of Treatment DateTypeDepartmentCare Team (Latest Contact Info)Ttnaaprgldi26/16/2026 11:00 AM ESTProcedure Visit [facility] [address] [facility] [place] [address] Camron Abad DO [address] [place] [address] documented as of this encounter Goals GoalPatient [...] EST Narrative 06/24/2023 10:00 AM EST [facility] ?[address] ? [place] [address] ? Ultrasound Report ? Signed ? Patient: AMY DOMÍNGUEZ L ?MR#: [id number] ?? : 1980 ?Acct:[id number] ?? Age/Sex: 42 / F ?ADM Date: 06/24/23 ?? Loc: US ? Attending Dr: Terese Aguila ? Ordering Physician: Terese Aguila ?? Date of Service: 06/24/23 ?? Procedure(s): US OB growth ?? Accession Number(s): [id number] ? cc: Terese Aguila; Cruz Rajan M.D. ? [facility] ? [address] [place] [address] ? [place] [address] ? Patient Name: ?? AMY DOMÍNGUEZ ? MRN: [facility]:[id number] ? date: 1980 ?Sex: F ?? Assigned Patient Location: US ?? Current Patient Location: US ?? Accession/Order Number: [id number] ?? Exam Date: 06/24/2023 ??09:11 ?Report Date: [...] ?06/24/23999 ? DD/ 0957 ? TD/TT: ? Personal Care Service Provider: Procedure Note Radiology, Radiologist, MD - 06/24/[address] [address] Ultrasound Report Signed Patient: AMY DOMÍNGUEZ LMR#: [id number] : 1980Acct:[id number] Age/Sex: 42 / FADM Date: 06/24/23 Loc: US Attending Dr: Terese Aguila Ordering Physician: Terese Aguila Date of Service: 06/24/23 Procedure(s): US OB growth Accession Number(s): [id number] cc: Terese Aguila; Cruz Rajan M.D. The [address] [address] Patient Name: AMY DOMÍNGUEZ MRN: [id number]:[id number] date: 1980 Sex: F Assigned Patient Location: US Current Patient Location: US Accession/Order Number: [id number] Exam Date: 06/24/2023 09:11 Report Date: 06/24/2023 [...] M.D. Signed By:06/24/23 1000 DD/ 0957 TD/TT: Personal Care Service Provider: Authorizing ProviderResult TypeResult StatusAmy [facility] IMAGINGFinal Result documented in this encounter Visit Diagnoses Not on filedocumented in this encounter Additional Health Concerns Active ProblemsNoted DateDiagnosed DateOB Twjdyxxoh68/01/2023 documented as of this encounter Care Teams Team MemberRelationshipSpecialtyStart DateEnd Date Cruz Rajan MD [address] [place] [address] PCP - [facility]02/16/23documented as of this encounter
--- OUTSIDE RECORDS SUMMARY | 2025-05-05 07:47 | XMS_ITS | Encounter Summary ---
Author Organization [facility] Address [address] [place] [address] Care Team Providers Care Vocational Rehabilitation Technician Name Role Phone Cruz Rajan MD Primary Care Provider [phone] Encounter Details DateTypeDepartmentCare Team (Latest Contact Info)Iongoxfvnon52/12/2024Clinisync Result Encounter [facility] External Department Unsolicited Ivan Abad, DO [address] [place] [address] Social History Tobacco UseTypesPacks/DayYears UsedDateSmoking Tobacco: NeverSmokeless Tobacco: NeverAlcohol UseStandard Drinks/WeekCommentsNot Currently0 (1 standard drink = 0.6 oz pure alcohol)occasional alcohol use, Caffeine intake: none CommentsYesSex and Gender InformationValueDate RecordedSex Assigned at Yhrsqp4801/21/2023 8:01 PM EDTLegal HsiLevmon57/15/2023 6:58 PM EDTGender Identity Mrzeam2101/21/2023 8:01 PM EDTSexual YrurwdwbkmfYrmacltp96/02/2023 8:01 PM EDT documented as of this encounter Plan of Treatment DateTypeDepartmentCare Team (Latest Contact Info)Jwzwcekkwwa75/16/2026 11:00 AM ESTProcedure Visit [facility] [address] [place] [address] Ivan Abad, DO [address] [place] [address] documented as of this encounter Goals GoalPatient Goal TypeAssociated ProblemsRecent ProgressPatient-Stated?Author Reminders Care PlanOB RemindersNoOpen Scheduling, Backgrounddocumented as of this encounter Procedures Procedure NamePriorityDate/TimeAssociated DiagnosisCommentsUS OB BPP W NON-FFIRPO9109/01/2023 8:33 AM EDT documented in this encounter Results * US OB BPP W NON-STRESS (09/01/2023 8:33 AM EDT)Anatomical Region LateralityModalityOtherSpecimen (Source)Anatomical Location / Laterality Collection Method / VolumeCollection TimeReceived Time09/01/2023 8:33 AM EDT Narrative 09/01/2023 8:35 AM EDT The [facility] ?[address] ? [place] [id number] ? Ultrasound Report ? Signed ? Patient: AMY ALFARO ?MR#: [id number] ?? : 1980 ?Acct:[id number] ?? Age/Sex: 42 / F ?ADM Date: 09/01/23 ?? Loc: [facility]BC ??250-1 ? Attending Dr: Ivan Abad D.O. ? Ordering Physician: Ivan Abad D.O. ?? Date of Service: 09/01/23 ?? Procedure(s): US OB BPP w non-stress ?? Accession Number(s): [id number] ? cc: Ivan Abad D.O.; Cruz Rajan M.D. ? [facility] ? [address] ? [place] [address] ? Patient Name: ?? AMY ALFARO ? MRN: [id number] ? date: 1980 ?Sex: F ?? Assigned Patient Location: FBC ?? Current Patient Location: [facility] ?? Accession/Order Number: [id number] ?? Exam Date: 09/01/2023 ??08:06 ?Report Date: [...] 0835 ? DD/ 0833 ? TD/TT: ? Handbag Frames Inspector: Procedure Note Radiology, Radiologist, MD - 09/01/2023 [place] [address] Ultrasound Report Signed Patient: AMY ALFARO LMR#: [id number] : 1980Acct:[id number] Age/Sex: 42 / FADM Date: 09/01/23 Loc: [facility] 250-[address]: Ivan Abad D.O. Ordering Physician: Ivan Abad D.O. Date of Service: 09/01/23 Procedure(s): US OB BPP w non-stress Accession Number(s): [id number] cc: Ivan Abad D.O.; Cruz Rajan M.D. The [place] [address] Patient Name: AMY ALFARO MRN: [id number]:[id number] date: 1980 Sex: F Assigned Patient Location: [facility] Current Patient Location: [facility] Accession/Order Number: [id number] Exam Date: 09/01/2023 08:06 Report Date: 09/01/2023 [...] 08:33 Dictated By: Rimma Batres M.D. Signed By:09/01/2335 DD/ 2 TD/TT: Handbag Frames Inspector: Authorizing ProviderResult TypeResult StatusCorey Pollo DOCLINISYNC IMAGINGFinal Result documented in this encounter Visit Diagnoses Not on filedocumented in this encounter Additional Health Concerns Active ProblemsNoted DateDiagnosed DateOB Prnhhccas92/01/2023 documented as of this encounter Care Teams Team MemberRelationshipSpecialtyStart DateEnd Date Cruz Rajan MD [address] [place] [address] [facility] - [facility]02/16/23documented as of this encounter
--- OUTSIDE RECORDS SUMMARY | 2025-05-05 07:47 | XMS_ITS | Encounter Summary ---
Author Organization [facility] Address [address] [place] [address] Care Team Providers Care Manager University Name Role Phone Cruz Rajan MD Primary Care Provider [phone] Encounter Details DateTypeDepartmentCare Team (Latest Contact Info)Bxsgimvclrn01/05/2024Clinisync Result Encounter [facility] External Department Unsolicited Ivan Abad, DO [address] [place] [address] Social History Tobacco UseTypesPacks/DayYears UsedDateSmoking Tobacco: NeverSmokeless Tobacco: NeverAlcohol UseStandard Drinks/WeekCommentsNot Currently0 (1 standard drink = 0.6 oz pure alcohol)occasional alcohol use, Caffeine intake: none CommentsYesSex and Gender InformationValueDate RecordedSex Assigned at Zbmmyg6701/21/2023 8:01 PM EDTLegal YpxRursst60/15/2023 6:58 PM EDTGender Identity Jgodbr2101/21/2023 8:01 PM EDTSexual CjgbxdxeueaNmwdpwhr51/02/2023 8:01 PM EDT documented as of this encounter Plan of Treatment DateTypeDepartmentCare Team (Latest Contact Info)Vypmqganbqx97/16/2026 11:00 AM ESTProcedure Visit [facility] [address] [facility] [place] [address] Ivan Abad, DO [address] [place] [address] documented as of this encounter Goals GoalPatient Goal TypeAssociated ProblemsRecent ProgressPatient-Stated?Author Reminders Care PlanOB RemindersNoOpen Scheduling, Backgrounddocumented as of this encounter Procedures Procedure NamePriorityDate/TimeAssociated DiagnosisCommentsUS OB BPP W NON-MFWZPJ4708/25/2023 8:57 AM EST documented in this encounter Results * US OB BPP W NON-STRESS (08/25/2023 8:57 AM EST)Anatomical Region LateralityModalityOtherSpecimen (Source)Anatomical Location / Laterality Collection Method / VolumeCollection TimeReceived Time08/25/2023 8:57 AM EST Narrative 08/25/2023 9:00 AM EST The [facility] ?[address] ? [place] [address] ? Ultrasound Report ? Signed ? Patient: AMY ALFARO ?MR#: [id number] ?? : 1980 ?Acct:[id number] ?? Age/Sex: 42 / F ?ADM Date: 08/25/23 ?? Loc: US ? Attending Dr: Ivan Abad D.O. ? Ordering Physician: Ivan Abad D.O. ?? Date of Service: 08/25/23 ?? Procedure(s): US OB BPP w non-stress ?? Accession Number(s): [id number] ? cc: Ivan Abad D.O.; Cruz Rajan M.D. ? The [facility] ? [address] ? [place] [address] ? Patient Name: ?? AMY LIMNER ? MRN: [id number]:[id number] ? date: 1980 ?Sex: F ?? Assigned Patient Location: [facility] ?? Current Patient Location: ? Accession/Order Number: [id number] ?? Exam Date: 08/25/2023 ??08:02 ?Report Date: [...] 0900 ? DD/ 0857 ? TD/TT: ? Lens Gauger: Procedure Note Radiology, Radiologist, MD - 08/25/2023 [place] [address] Ultrasound Report Signed Patient: AMY ALFARO LMR#: [id number] : 1980Acct:[id number] Age/Sex: 42 / FADM Date: 08/25/23 Loc: US Attending Dr: Ivan Abad D.O. Ordering Physician: Ivan Abad D.O. Date of Service: 08/25/23 Procedure(s): US OB BPP w non-stress Accession Number(s): [id number] cc: Ivan Abad D.O.; Cruz Rajan M.D. The [place] [id number] Patient Name: AMY ALFARO MRN: [id number] date: 1980 Sex: F Assigned Patient Location: [facility] Current Patient Location: Accession/Order Number: [id number] Exam Date: 08/25/2023 08:02 Report Date: 08/25/2023 [...] Batres M.D. Signed By:08/25/23899 DD/ 6 TD/TT: Lens Gauger: Authorizing ProviderResult TypeResult StatusCorey Pollo DOCLINISYNC IMAGINGFinal Result documented in this encounter Visit Diagnoses Not on filedocumented in this encounter Additional Health Concerns Active ProblemsNoted DateDiagnosed DateOB Wvjnmhpai99/01/2023 documented as of this encounter Care Teams Team MemberRelationshipSpecialtyStart DateEnd Date Cruz Rajan MD [address] [place] [address] [facility] - [facility]02/16/23documented as of this encounter
--- OUTSIDE RECORDS SUMMARY | 2025-05-05 07:47 | XMS_ITS | Encounter Summary ---
Author Organization [facility] Address [address] [place] [address] Care Team Providers Care Gas Scrubber Operator Name Role Phone Cruz Rajan MD Primary Care Provider [phone] Encounter Details DateTypeDepartmentCare Team (Latest Contact Info)Kgaokspvisa85/01/2024Clinisync Result Encounter [facility] External Department Unsolicited Ivan Abad, DO [address] [place] [address] Social History Tobacco UseTypesPacks/DayYears UsedDateSmoking Tobacco: NeverSmokeless Tobacco: NeverAlcohol UseStandard Drinks/WeekCommentsNot Currently0 (1 standard drink = 0.6 oz pure alcohol)occasional alcohol use, Caffeine intake: none CommentsYesSex and Gender InformationValueDate RecordedSex Assigned at Eoeqvv0201/21/2023 8:01 PM EDTLegal IotQczxpj35/15/2023 6:58 PM EDTGender Identity Alnyyp5101/21/2023 8:01 PM EDTSexual WpxsvsscfioQmpctyeu58/02/2023 8:01 PM EDT documented as of this encounter Plan of Treatment DateTypeDepartmentCare Team (Latest Contact Info)Umzirgbriuv93/16/2026 11:00 AM ESTProcedure Visit [facility] [address] [facility] [address] Ivan Abad, DO [address] [place] [address] documented as of this encounter Goals GoalPatient Goal TypeAssociated ProblemsRecent ProgressPatient-Stated?Author Reminders Care PlanOB RemindersNoOpen Scheduling, Backgrounddocumented as of this encounter Procedures Procedure NamePriorityDate/TimeAssociated DiagnosisCommentsUS OB BPP W NON-IVRYYJ5308/21/2023 9:07 AM EST documented in this encounter Results * US OB BPP W NON-STRESS (08/21/2023 9:07 AM EST)Anatomical Region LateralityModalityOtherSpecimen (Source)Anatomical Location / Laterality Collection Method / VolumeCollection TimeReceived Time08/21/2023 9:07 AM EST Narrative 08/21/2023 9:10 AM EST The [facility] ?[address] ? [place] [address] ? Ultrasound Report ? Signed ? Patient: AMY ALFARO ?MR#: [id number] ?? : 1980 ?Acct:[id number] ?? Age/Sex: 42 / F ?ADM Date: 08/21/23 ?? Loc: [facility]BC ??250-1 ? Attending Dr: Ivan Abad D.O. ? Ordering Physician: Ivan Abad D.O. ?? Date of Service: 08/21/23 ?? Procedure(s): US OB BPP w non-stress ?? Accession Number(s): [id number] ? cc: Ivan Abad D.O.; Cruz Rajan M.D. ? The [facility] ? [address] ? [place] [address] ? Patient Name: ?? AMY ALFARO ? MRN: [id number]:[id number] ? date: 1980 ?Sex: F ?? Assigned Patient Location: [facility] ?? Current Patient Location: [facility] ?? Accession/Order Number: [id number] ?? Exam Date: 08/21/2023 ??08:42 ?Report Date: [...] 09 ? DD/ 0907 ? TD/TT: ? Deflector Operator: Procedure Note Radiology, Radiologist, MD - 08/26/2023 [place] [address] Ultrasound Report Signed Patient: AMY ALFARO LMR#: [id number] : 1980Acct:[id number] Age/Sex: 42 / FADM Date: 08/21/23 Loc: [facility] 250-[address]: Ivan Abad D.O. Ordering Physician: Ivan Abad D.O. Date of Service: 08/21/23 Procedure(s): US OB BPP w non-stress Accession Number(s): [id number] cc: Ivan Abad D.O.; Cruz Rajan M.D. The [place] [address] Patient Name: AMY ALFARO MRN: [facility]:[id number] date: 1980 Sex: F Assigned Patient Location: [facility] Current Patient Location: [facility] Accession/Order Number: [id number] Exam Date: 08/21/2023 08:42 Report Date: 08/21/2023 [...] Batres M.D. Signed By:08/21/23909 DD/ 6 TD/TT: Deflector Operator: Authorizing ProviderResult TypeResult StatusCorey Pollo DOCLINISYNC IMAGINGFinal Result documented in this encounter Visit Diagnoses Not on filedocumented in this encounter Additional Health Concerns Active ProblemsNoted DateDiagnosed DateOB Oijszgfkq09/01/2023 documented as of this encounter Care Teams Team MemberRelationshipSpecialtyStart DateEnd Date Cruz Rajan MD [address] [place] [address] [facility] - [facility]02/16/23documented as of this encounter
--- OUTSIDE RECORDS SUMMARY | 2025-05-05 07:47 | XMS_ITS | Encounter Summary ---
Author Organization [facility] Address [address] [place] [address] Care Team Providers Care Twx Operator Name Role Phone Cruz Rajan MD Primary Care Provider [phone] Encounter Details DateTypeDepartmentCare Team (Latest Contact Info)Fdajzrzpsru67/29/2024Clinisync Result Encounter [facility] External Department Unsolicited Terese Aguila, ERIC [address] [place] [address] Social History Tobacco UseTypesPacks/DayYears UsedDateSmoking Tobacco: NeverSmokeless Tobacco: NeverAlcohol UseStandard Drinks/WeekCommentsNot Currently0 (1 standard drink = 0.6 oz pure alcohol)occasional alcohol use, Caffeine intake: none CommentsYesSex and Gender InformationValueDate RecordedSex Assigned at Fqufrr7901/21/2023 8:01 PM EDTLegal SomEsoobs59/15/2023 6:58 PM EDTGender Identity Loraja3601/21/2023 8:01 PM EDTSexual XmcvyfxmzsuFafpgdsj54/02/2023 8:01 PM EDT documented as of this encounter Plan of Treatment DateTypeDepartmentCare Team (Latest Contact Info)Gcfslwphvbk77/16/2026 11:00 AM ESTProcedure Visit [facility] [address] [facility] [place] [address] Camron Abad DO [address] [facility] [address] [place] [address] documented as of this encounter Goals GoalPatient [...] EST Narrative 08/20/2023 11:49 AM EST The [facility] ?[address] ? [place] [address] ? Ultrasound Report ? Signed ? Patient: AMY DOMÍNGUEZ L ?MR#: [id number] ?? : 1980 ?Acct:[id number] ?? Age/Sex: 42 / F ?ADM Date: 08/20/23 ?? Loc: [facility] ? Attending Dr: Terese Aguila ? Ordering Physician: Terese Aguila ?? Date of Service: 08/20/23 ?? Procedure(s): US OB growth ?? Accession Number(s): [id number] ? cc: Terese Aguila; Cruz Rajan M.D. ? The [facility] ? [facility] ? [place] [address] ? Patient Name: ?? AMY DOMÍNGUEZ ? MRN: [facility]:[id number] ? date: 1980 ?Sex: F ?? Assigned Patient Location: [facility] ?? Current Patient Location: [facility] ?? Accession/Order Number: [id number] ?? Exam Date: 08/20/2023 ??11:06 ?Report Date: [...] 1149 ? DD/ 1146 ? TD/TT: ? Rolls Mill Operator: Procedure Note Radiology, Radiologist, MD - 08/26/2023 The [place] [id number] Ultrasound Report Signed Patient: AMY DOMÍNGUEZ LMR#: [id number] : 1980Acct:[id number] Age/Sex: 42 / FADM Date: 08/20/23 Loc: [facility] Attending Dr: Terese Aguila Ordering Physician: Terese Aguila Date of Service: 08/20/23 Procedure(s): [facility] Accession Number(s): [id number] cc: Terese Aguila; Cruz Rajan M.D. The [address] [address] Patient Name: AMY DOMÍNGUEZ MRN: [id number] date: 1980 Sex: F Assigned Patient Location: [facility] Current Patient Location: [facility] Accession/Order Number: [id number] Exam Date: 08/20/2023 11:06 Report Date: 08/20/2023 [...] M.D. Signed By:08/20/23 1149 DD/ 1146 TD/TT: Rolls Mill Operator: Authorizing ProviderResult TypeResult StatusTerese Aguila PACLINISYNC IMAGINGFinal Result documented in this encounter Visit Diagnoses Not on filedocumented in this encounter Additional Health Concerns Active ProblemsNoted DateDiagnosed DateOB Azazansxq22/01/2023 documented as of this encounter Care Teams Team MemberRelationshipSpecialtyStart DateEnd Date Cruz Rajan MD [address] [place] [address] [facility] - [facility]02/16/23documented as of this encounter
--- OUTSIDE RECORDS SUMMARY | 2025-05-05 07:47 | XMS_ITS | Encounter Summary ---
Author Organization [facility] Address [address] [place] [address] Care Team Providers Care Clay Grinder Name Role Phone Cruz Rajan MD Primary Care Provider [phone] Encounter Details DateTypeDepartmentCare Team (Latest Contact Info)Byhvwhjwyuz90/20/2024Clinisync Result Encounter [facility] External Department Unsolicited Ivan Abad, DO [address] [place] [address] Social History Tobacco UseTypesPacks/DayYears UsedDateSmoking Tobacco: NeverSmokeless Tobacco: NeverAlcohol UseStandard Drinks/WeekCommentsNot Currently0 (1 standard drink = 0.6 oz pure alcohol)occasional alcohol use, Caffeine intake: none CommentsYesSex and Gender InformationValueDate RecordedSex Assigned at Ddgevj7301/21/2023 8:01 PM EDTLegal QkbLiuwce16/15/2023 6:58 PM EDTGender Identity Cfbnci9601/21/2023 8:01 PM EDTSexual LptsqgcorxsDyfsluqy28/02/2023 8:01 PM EDT documented as of this encounter Plan of Treatment DateTypeDepartmentCare Team (Latest Contact Info)Ipmzehwvnom31/16/2026 11:00 AM ESTProcedure Visit [facility] [address] [facility] [place] [place] [address] Ivan Abad, DO [address] [place] [address] documented as of this encounter Goals GoalPatient Goal TypeAssociated ProblemsRecent ProgressPatient-Stated?Author Reminders Care PlanOB RemindersNoOpen Scheduling, Backgrounddocumented as of this encounter Procedures Procedure NamePriorityDate/TimeAssociated DiagnosisCommentsUS OB BPP W NON-SDIIVZ0908/11/2023 3:35 PM EST documented in this encounter Results * US OB BPP W NON-STRESS (08/11/2023 3:35 PM EST)Anatomical Region LateralityModalityOtherSpecimen (Source)Anatomical Location / Laterality Collection Method / VolumeCollection TimeReceived Time08/11/2023 3:35 PM EST Narrative 08/11/2023 4:47 PM EST The [place] ?[address] ? [place] [address] ? Ultrasound Report ? Signed ? Patient: AMY ALFARO ?MR#: [id number] ?? : 1980 ?Acct:[id number] ?? Age/Sex: 42 / F ?ADM Date: 08/11/23 ?? Loc: US ? Attending Dr: Ivan Abad D.O. ? Ordering Physician: Ivan Abad D.O. ?? Date of Service: 08/11/23 ?? Procedure(s): US OB BPP w non-stress ?? Accession Number(s): [id number] ? cc: Ivan Abad D.O.; Cruz Rajan M.D. ? The [facility] ? [address] ? [place] [address] ? Patient Name: ?? AMY L ALFARO ? MRN: TBH:[id number] ? date: 1980 ?Sex: F ?? Assigned Patient Location: [facility] ?? Current Patient Location: ? Accession/Order Number: [id number] ?? Exam Date: 08/11/2023 ??15:02 ?Report Date: [...] ?08/11/237 ? DD/ 1535 ? TD/TT: ? Emergency Room Rn: Procedure Note Radiology, Radiologist, MD - 08/26/2023 [place] [address] Ultrasound Report Signed Patient: AMY ALFARO LMR#: [id number] : 1980Acct:[id number] Age/Sex: 42 / FADM Date: 08/11/23 Loc: US Attending Dr: Ivan Abad D.O. Ordering Physician: Ivan Abad D.O. Date of Service: 08/11/23 Procedure(s): US OB BPP w non-stress Accession Number(s): [id number] cc: Ivan Abad D.O.; Cruz Rajan M.D. The [address] [address] Patient Name: AMY ALFARO MRN: [facility]:[id number] date: 1980 Sex: F Assigned Patient Location: [facility] Current Patient Location: Accession/Order Number: [id number] Exam Date: 08/11/2023 15:02 Report Date: 08/11/2023 [...] Dictated By: Tomas Hurst M.D. Signed By:08/11/23 8367 DD/ 1535 TD/TT: Emergency Room Rn: Authorizing ProviderResult TypeResult StatusCorey Pollo DOCLINISYNC IMAGINGFinal Result documented in this encounter Visit Diagnoses Not on filedocumented in this encounter Additional Health Concerns Active ProblemsNoted DateDiagnosed DateOB Vydtbelpr70/01/2023 documented as of this encounter Care Teams Team MemberRelationshipSpecialtyStart DateEnd Date Cruz Rajan MD [address] [place] [address] [facility] - [facility]02/16/23documented as of this encounter
--- OUTSIDE RECORDS SUMMARY | 2025-05-05 07:47 | XMS_ITS | Encounter Summary ---
Author Organization [facility] Address [address] [place] [address] Care Team Providers Care Warehouse Packaging Supervisor Name Role Phone Cruz Rajan MD Primary Care Provider [phone] Encounter Details DateTypeDepartmentCare Team (Latest Contact Info)Jabrdpvqybv75/19/2024Clinisync Result Encounter [facility] External Department Unsolicited Ivan Abad, DO [address] [place] [address] Social History Tobacco UseTypesPacks/DayYears UsedDateSmoking Tobacco: NeverSmokeless Tobacco: NeverAlcohol UseStandard Drinks/WeekCommentsNot Currently0 (1 standard drink = 0.6 oz pure alcohol)occasional alcohol use, Caffeine intake: none CommentsYesSex and Gender InformationValueDate RecordedSex Assigned at Oupeyw4901/21/2023 8:01 PM EDTLegal AhoRnwtvo49/15/2023 6:58 PM EDTGender Identity Resovu4701/21/2023 8:01 PM EDTSexual DsxuwtkmpatNfbqfwns85/02/2023 8:01 PM EDT documented as of this encounter Plan of Treatment DateTypeDepartmentCare Team (Latest Contact Info)Akiquzfaxvw58/16/2026 11:00 AM ESTProcedure Visit [facility] [place] [facility] [address] [place] [phone] Ivan Abad, DO [address] [place] [address] documented as of this encounter Goals GoalPatient Goal TypeAssociated ProblemsRecent ProgressPatient-Stated?Author Reminders Care PlanOB RemindersNoOpen Scheduling, Backgrounddocumented as of this encounter Procedures Procedure NamePriorityDate/TimeAssociated DiagnosisCommentsTBH DRUG SCREEN RAPID (URINE)Upnykxf8009/08/2023 10:45 AM EDT HMHP CBC WITH PLATELET NO DUSOESFKHYEURmsequn12/19/2024 10:45 AM EDT US OB BPP W NON-HTDVXP1109/08/2023 9:57 AM EDT documented in this encounter [...] 35.2 g/dLTBHTBH RDW 14.711.0 - 15.0 %TBHTBH LJF751826 - 450 10 3/uLTBHTBH MPV11.69.5 - 13.5 [...] EDT Narrative 09/08/2023 9:59 AM EDT The [facility] ?[address] ? [place] [address] ? Ultrasound Report ? Signed ? Patient: AMY ALFARO ?MR#: [id number] ?? : 1980 ?Acct:[id number] ?? Age/Sex: 42 / F ?ADM Date: //24 ?? Loc: [facility] ??250-1 ? Attending Dr: Ivan Abad D.O. ? Ordering Physician: Ivan Abad D.O. ?? Date of Service: 09/08/23 ?? Procedure(s): US OB BPP w non-stress ?? Accession Number(s): [id number] ? cc: Ivan Abad D.O.; Cruz Rajan M.D. ? The [facility] ? [address] ? [place] [address] ? Patient Name: ?? AMY ALFARO ? MRN: [facility]:[id number] ? date: 1980 ?Sex: F ?? Assigned Patient Location: [facility] ?? Current Patient Location: [facility] ?? Accession/Order Number: [id number] ?? Exam Date: 09/08/2023 ??08:06 ?Report Date: [...] 0959 ? DD/ 6 ? TD/TT: ? Paper Ruler: Procedure Note Radiology, Radiologist, MD - 09/08/2023 [place] [address] Ultrasound Report Signed Patient: AMY ALFARO LMR#: [id number] : 1980Acct:[id number] Age/Sex: 42 / FADM Date: 09/08/23 Loc: [facility] 250-[address]: Ivan Abad D.O. Ordering Physician: Ivan Abad D.O. Date of Service: 09/08/23 Procedure(s): US OB BPP w non-stress Accession Number(s): [id number] cc: Ivan Abad D.O.; Cruz Rajan M.D. [place] [id number] Patient Name: AMY ALFARO MRN: [id number] date: 1980 Sex: F Assigned Patient Location: [facility] Current Patient Location: [facility] Accession/Order Number: [id number] Exam Date: 09/08/2023 08:06 Report Date: 09/08/2023 [...] Batres M.D. Signed By:09/08/2359 DD/ 6 TD/TT: Paper Ruler: Authorizing ProviderResult TypeResult StatusCorey Pollo DOCLINISYNC IMAGINGFinal Result documented in this encounter Visit Diagnoses Not on filedocumented in this encounter Additional Health Concerns Active ProblemsNoted DateDiagnosed DateOB Wcdstvuud85/01/2023 documented as of this encounter Care Teams Team MemberRelationshipSpecialtyStart DateEnd Date Cruz Rajan MD [address] [place] [address] [facility] - [facility]02/16/23documented as of this encounter
--- OUTSIDE RECORDS SUMMARY | 2025-05-05 07:47 | XMS_ITS | Encounter Summary ---
Author Organization [facility] Address [address] [place] [address] Care Team Providers Care Renovator Machine Operator Name Role Phone Cruz Rajan MD Primary Care Provider [phone] Encounter Details DateTypeDepartmentCare Team (Latest Contact Info)Tdslbzrthfs89/03/2025linisync Result Encounter [facility] External Department Unsolicited Camron Abad, DO [address] [place] [address] Social History Tobacco UseTypesPacks/DayYears UsedDateSmoking Tobacco: NeverSmokeless Tobacco: NeverAlcohol UseStandard Drinks/WeekCommentsNot Currently0 (1 standard drink = 0.6 oz pure alcohol)occasional alcohol use, Caffeine intake: none CommentsNoSex and Gender InformationValueDate RecordedSex Assigned at Incryq9701/21/2023 8:01 PM EDTLegal SrlQeksxg16/15/2023 6:58 PM EDTGender Identity Pyvxwx3401/21/2023 8:01 PM EDTSexual YgkzbnhbibaMnviympg11/02/2023 8:01 PM EDT documented as of this encounter Plan of Treatment DateTypeDepartmentCare Team (Latest Contact Info)Ltaysqpavxz25/16/2026 11:00 AM ESTProcedure Visit [facility] [address] [facility] [place] [phone] Camron Abad, DO [address] [place] [address] documented as of this encounter Goals GoalPatient Goal TypeAssociated ProblemsRecent ProgressPatient-Stated?Author Reminders Care PlanOB RemindersNoOpen Scheduling, Backgrounddocumented as of this encounter Procedures Procedure NamePriorityDate/TimeAssociated DiagnosisCommentsTBH PREG QUANT HCG Vohzehq1004/24/2025 10:55 AM EST ALL CBC WITH AUTO BIOXHvsevrz66/03/2025 10:55 AM EST documented in this encounter Results * TBH PREG QUANT HCG (04/24/2025 10:55 AM EST)ComponentValueRef RangeTest Method Analysis TimePerformed AtPathologist SignatureHCG ZHYQKRESPECI25,968mIU/mLTBH Comment: 5-50 ? 0.2-1 WEEK 50-500 ? [...] DOCLINISYNCFinal Result Performing OrganizationAddressCity/State/ZIP CodePhone Number [facility] * ALL CBC WITH AUTO DIFF (04/24/2025 10:55 AM EST)ComponentValueRef RangeTest MethodAnalysis TimePerformed AtPathologist SignatureTBH WBC8.34.0 - 11.0 10 3/uLTBHTBH RBC4.454.20 - 5.40 10 6/uLTBHTBH HGB13.912.0 - 16.0 g/dLTBHTBH HCT 41.136.0 - 48.0 %TBHTBH MCV92.481.0 - 99.0 fLTBHTBH MCH31.226.7 - 34.0 pgTBH TBH MCHC33.829.9 - 35.2 g/dLTBHTBH RDW13.611.0 - 15.0 %TBHTBH NZK245319 - 450 10 3/uLTBHTBH MPV10.19.5 - 13.5 [...] DOCLINISYNCFinal Result Performing OrganizationAddressCity/State/ZIP CodePhone Number [facility] documented in this encounter Visit Diagnoses Not on filedocumented in this encounter Additional Health Concerns Active ProblemsNoted DateDiagnosed DateOB Nzrmnefzy39/01/2023 documented as of this encounter Care Teams Team MemberRelationshipSpecialtyStart DateEnd Date Cruz Rajan MD [address] [place] [address] PCP - [facility]02/16/23documented as of this encounter
--- OUTSIDE RECORDS SUMMARY | 2025-05-05 07:47 | XMS_ITS | Encounter Summary ---
Author Organization [facility] Address [address] [place] [address] Care Team Providers Care Check And Transfer Beader Name Role Phone Cruz Rajan MD Primary Care Provider [phone] Encounter Details DateTypeDepartmentCare Team (Latest Contact Info)Grpkchcyfsn26/10/2025amboo flowsheet [facility] [place] [facility] [address] [place] [address] Camron Abad DO [address] [place] [address] Dr [address] [place], [place] [address] Social History Tobacco UseTypesPacks/DayYears UsedDateSmoking Tobacco: NeverSmokeless Tobacco: NeverAlcohol UseStandard Drinks/WeekCommentsNot Currently0 (1 standard drink = 0.6 oz pure alcohol)occasional alcohol use, Caffeine intake: none CommentsNoSex and Gender InformationValueDate RecordedSex Assigned at Ebrmzg4801/21/2023 8:01 PM EDTLegal OzsBvaoxo83/15/2023 6:58 PM EDTGender Identity Kcbjhj6801/21/2023 8:01 PM EDTSexual TgclpvxidcfUzyrclgk66/02/2023 8:01 PM EDT documented as of this encounter Plan of Treatment DateTypeDepartmentCare Team (Latest Contact Info)Xqshkzxaynn38/16/2026 11:00 AM ESTProcedure Visit [facility] [place] [facility] [address] [place] [address] Camron Abad DO [address] [place] [address] [place], [facility] documented as of this encounter Goals GoalPatient Goal TypeAssociated ProblemsRecent ProgressPatient-Stated?Author Reminders Care PlanOB RemindersNoOpen Scheduling, Backgrounddocumented as of this encounter Visit Diagnoses Not on filedocumented in this encounter Additional Health Concerns Active ProblemsNoted DateDiagnosed DateOB Ngwbwlinn24/01/2023 documented as of this encounter Care Teams Team MemberRelationshipSpecialtyStart DateEnd Date Cruz Rajan MD [address] [facility] [place] [address] PCP - General02/16/23documented as of this encounter
--- OUTSIDE RECORDS SUMMARY | 2025-05-05 07:47 | XMS_ITS | Encounter Summary ---
Author Organization [facility] Address [address] [place] [address] Care Team Providers Care Flat Screen Worker Name Role Phone Cruz Rajan MD Primary Care Provider [phone] Encounter Details DateTypeDepartmentCare Team (Latest Contact Info)Bktcvgpegig10/01/2024Clinisync Result Encounter [facility] External Department Unsolicited Ivan Abad, DO [address] [place] [address] Social History Tobacco UseTypesPacks/DayYears UsedDateSmoking Tobacco: NeverSmokeless Tobacco: NeverAlcohol UseStandard Drinks/WeekCommentsNot Currently0 (1 standard drink = 0.6 oz pure alcohol)occasional alcohol use, Caffeine intake: none CommentsYesSex and Gender InformationValueDate RecordedSex Assigned at Abcqjx4001/21/2023 8:01 PM EDTLegal HuiGewqzq74/15/2023 6:58 PM EDTGender Identity Ozbkmd9701/21/2023 8:01 PM EDTSexual IjphsvuvnqsYfeqfrch67/02/2023 8:01 PM EDT documented as of this encounter Plan of Treatment DateTypeDepartmentCare Team (Latest Contact Info)Lgdzbjfnufb95/16/2026 11:00 AM ESTProcedure Visit [facility] [address] [facility] [place] [phone] Ivan Abad, DO [address] [place] [address] documented as of this encounter Goals GoalPatient [...] EST Narrative 07/23/2023 4:01 PM EST The [facility] ?[address] ? [place] [address] ? Ultrasound Report ? Signed ? Patient: AMY ALFARO L ?MR#: [id number] ?? : 1980 ?Acct:[id number] ?? Age/Sex: 42 / F ?ADM Date: 07/23/23 ?? Loc: [facility] ? Attending Dr: Ivan Abad D.O. ? Ordering Physician: Ivan Abad D.O. ?? Date of Service: 07/23/23 ?? Procedure(s): US OB growth ?? Accession Number(s): [id number] ? cc: Ivan Abad D.O.; Cruz Rajan M.D. ? [facility] ? [address] [place] [address] ? [place] [address] ? Patient Name: ?? AMY ALFARO ? MRN: [facility]:[id number] ? date: 1980 ?Sex: F ?? Assigned Patient Location: [facility] ?? Current Patient Location: [facility] ?? Accession/Order Number: [id number] ?? Exam Date: 07/23/2023 ??15:00 ?Report Date: [...] 1601 ? DD/ 1558 ? TD/TT: ? Technical Sales Advisor: Procedure Note Radiology, Radiologist, MD - 08/26/2023 [place] [address] Ultrasound Report Signed Patient: AMY ALFARO R#: [id number] : 1980Acct:[id number] Age/Sex: 42 / FADM Date: 07/23/23 Loc: [facility] Attending Dr: Ivan Abad D.O. Ordering Physician: Ivan Abad D.O. Date of Service: 07/23/23 Procedure(s): [facility] Accession Number(s): [id number] cc: Ivan Abad D.O.; Cruz Rajan M.D. The [address] [address] Patient Name: AMY ALFARO MRN: [id number] date: 1980 Sex: F Assigned Patient Location: [facility] Current Patient Location: [facility] Accession/Order Number: [id number] Exam Date: 07/23/2023 15:00 Report Date: 07/23/2023 [...] M.D. Signed By:07/23/23 1601 DD/ 1558 TD/TT: Technical Sales Advisor: Authorizing ProviderResult TypeResult StatusCoresalo Abad DOCLINISYNC IMAGINGFinal Result documented in this encounter Visit Diagnoses Not on filedocumented in this encounter Additional Health Concerns Active ProblemsNoted DateDiagnosed DateOB Rqzybsxnk70/01/2023 documented as of this encounter Care Teams Team MemberRelationshipSpecialtyStart DateEnd Date Cruz Rajan MD [address] [place] [address] [facility] - [facility]02/16/23documented as of this encounter
--- OUTSIDE RECORDS SUMMARY | 2025-05-05 07:47 | XMS_ITS | Encounter Summary ---
Author Organization [facility] Address [address] [place] [address] Care Team Providers Care Transport Coordinator Name Role Phone Cruz Rajan MD Primary Care Provider [phone] Encounter Details DateTypeDepartmentCare Team (Latest Contact Info)Dngcqxadngs82/14/2024Clinisync Result Encounter [facility] External Department Unsolicited Ivan Abad, DO [address] [place] [address] Social History Tobacco UseTypesPacks/DayYears UsedDateSmoking Tobacco: NeverSmokeless Tobacco: NeverAlcohol UseStandard Drinks/WeekCommentsNot Currently0 (1 standard drink = 0.6 oz pure alcohol)occasional alcohol use, Caffeine intake: none CommentsYesSex and Gender InformationValueDate RecordedSex Assigned at Tajvpd4201/21/2023 8:01 PM EDTLegal ZcfBjuoen67/15/2023 6:58 PM EDTGender Identity Absjjb3201/21/2023 8:01 PM EDTSexual VjtxfqgiieqEcjhliaq48/02/2023 8:01 PM EDT documented as of this encounter Plan of Treatment DateTypeDepartmentCare Team (Latest Contact Info)Oeqvldvumja21/16/2026 11:00 AM ESTProcedure Visit [facility] [address] [facility] [place] [address] Ivan Abad, DO [address] [place] [address] documented as of this encounter Goals GoalPatient Goal TypeAssociated ProblemsRecent ProgressPatient-Stated?Author Reminders Care PlanOB RemindersNoOpen Scheduling, Backgrounddocumented as of this encounter Procedures Procedure NamePriorityDate/TimeAssociated DiagnosisCommentsUS OB BPP W NON-CLCJFA6108/05/2023 7:16 AM EST documented in this encounter Results * US OB BPP W NON-STRESS (08/05/2023 7:16 AM EST)Anatomical Region LateralityModalityOtherSpecimen (Source)Anatomical Location / Laterality Collection Method / VolumeCollection TimeReceived Time08/05/2023 7:16 AM EST Narrative 08/05/2023 7:19 AM EST The [facility] ?[address] ? [place] [address] ? Ultrasound Report ? Signed ? Patient: AMY ALFARO ?MR#: [id number] ?? : 1980 ?Acct:[id number] ?? Age/Sex: 42 / F ?ADM Date: 08/04/23 ?? Loc: US ? Attending Dr: Ivan bAad D.O. ? Ordering Physician: Ivan Abad D.O. ?? Date of Service: 08/04/23 ?? Procedure(s): US OB BPP w non-stress ?? Accession Number(s): [id number] ? cc: Ivan Abad D.O.; Cruz Rajan M.D. ? The [facility] ? [address] ? [place] [address] ? Patient Name: ?? AMY LIMNER ? MRN: [id number] ? date: 1980 ?Sex: F ?? Assigned Patient Location: [facility] ?? Current Patient Location: ? Accession/Order Number: [id number] ?? Exam Date: 08/04/2023 ??20:12 ?Report Date: [...] ?08/05/23718 ? DD/ 0716 ? TD/TT: ? Accounting Auditor: Procedure Note Radiology, Radiologist, MD - 08/05/2023 [place] [address] Ultrasound Report Signed Patient: AMY ALFARO LMR#: [id number] : 1980Acct:[id number] Age/Sex: 42 / FADM Date: 08/04/23 Loc: US Attending Dr: Ivan Abad D.O. Ordering Physician: Ivan Abad D.O. Date of Service: 08/04/23 Procedure(s): US OB BPP w non-stress Accession Number(s): [id number] cc: Ivan Abad D.O.; Cruz Rajan M.D. The [place] [id number] Patient Name: AMY ALFARO MRN: [id number] date: 1980 Sex: F Assigned Patient Location: [facility] Current Patient Location: Accession/Order Number: [id number] Exam Date: 08/04/2023 20:12 Report Date: 08/05/2023 [...] Hurst M.D. Signed By:08/05/23718 DD/ 5 TD/TT: Accounting Auditor: Authorizing ProviderResult TypeResult StatusCorey Pollo DOCLINISYNC IMAGINGFinal Result documented in this encounter Visit Diagnoses Not on filedocumented in this encounter Additional Health Concerns Active ProblemsNoted DateDiagnosed DateOB Uovmnufpd61/01/2023 documented as of this encounter Care Teams Team MemberRelationshipSpecialtyStart DateEnd Date Cruz Rajan MD [address] [place] [address] [facility] - [facility]02/16/23documented as of this encounter
--- OUTSIDE RECORDS SUMMARY | 2025-05-05 07:47 | XMS_ITS | Clinical Summary ---
Author Organization [facility] Address [address] [place] [address] Care Team Providers Care Community Engagement Specialist Name Role Phone Cruz Rajan MD Primary Care Provider [phone] Allergies Active AllergyReactionsCriticalityNoted BjjiWsrjzrsjZkxmlvnexvjBtgai30/20/2014 TrygyXfepbuc90/01/2023 Medications MedicationSigDispense QuantityRefillsLast FilledStart DateEnd DateStatus cetirizine (ZyrTEC) 10 MG tablet Take 10 mg by mouth DailyActive doxycycline (Vibramycin) 100 MG capsule Take 100 mg by mouth in the morning and 100 mg before bedtime.5Active benzonatate (Tessalon) 200 MG capsule every 8 (eight) hours5Active Active Problems ProblemNoted DateDiagnosed DateSmall for gestational age (SGA) ([facility]) 08/27/2023 Encounters DateTypeDepartmentCare QqovRthnntzmgdb02/11/2025[place] [address] Nivia Pedersen MA 05/01/2025 10:00 [place] [address] Ivan Abad DO Well woman exam with routine gynecological exam; Encounter for screening mammogram for malignant neoplasm of breast; Miscarriage ([facility])05/01/2025linisync Result Encounter NOMS External Department Unsolicited Ivan Abad DO 05/01/2025amboo flowsheet [facility] [address] [place] [address] Ivan Abad, DO 04/30/20256256Dihkql86/03/2025linisync Result Encounter NOMS External Department Unsolicited Ivan Abad, DO 04/21/2025linisync Result Encounter NOMS External Department Unsolicited Ivan Abad, DO 04/20/2025 1:40 PM EDTOffice Visit [facility] [address] [place] [address] Terese Andrea PA Missed ([facility])04/20/2025 12:30 PM EDTAncillary Procedure [facility] [address] [place] [address] Missed menses; Positive urine test ([facility])04/16/2025Travelfrom Last 3 Months Family History Medical HistoryRelationNameCommentsDiabetesFatherMultiple sclerosisMotherBreast cancerOtherCancerOtherDepressionOtherDiabetesOtherHeart diseaseOtherHypertension OtherRelationNameStatusCommentsFatherAliveMotherAliveOther Social History Tobacco UseTypesPacks/DayYears UsedDateSmoking Tobacco: NeverSmokeless Tobacco: Never Tobacco Cessation:Counseling Given: Not Answered Alcohol UseStandard Drinks/WeekCommentsNot Currently0 (1 standard drink = 0.6 oz pure alcohol)occasional alcohol use, Caffeine intake: noneCommentsNoSex and Gender InformationValueDate RecordedSex Assigned at IwhmjOoxdox11/02/2023 8:01 PM EDTLegal OmkXwchku17/15/2023 6:58 PM EDTGender IubcaqeoNhjjjf07/02/2023 8:01 PM EDTSexual UmnluutgjmtCndnozlc80/02/2023 8:01 PM EDT Last Filed Vital Signs Vital SignReadingTime TakenCommentsBlood Psnqbhsr292/5805/01/2025 10:04 AM EST Pulse--Temperature--Respiratory Rate--Oxygen Saturation--Inhaled Oxygen Concentration--Gycfkn50.8 kg (125 lb 1.9 oz)05/01/2025 10:04 AM VFONefsqi399 cm (5' 3 )05/01/2025 10:04 AM ESTBody Mass Index22.16107/01/2024 10:04 AM EST Plan of Treatment DateTypeDepartmentCare Team (Latest Contact Info)Jrrvgssffpn94/16/2026 11:00 AM ESTProcedure Visit [facility] [address] [place] [address] Ivan Abad, [address] [place] [address] Health MaintenanceDue DateLast DoneCommentsCT Nkkonhquibjv37/29/1980Colonoscopy 1979Colorectal Cancer Whsydrcor33/29/1980FIT-DNA1979FIT1980 FOBT1980 2950Yyuzigrgapslz47/29/9415Wfznczfan59/29/2020COVID-19 Vaccine ( season)503/11/2021, 07/21/2021Influenza Vaccine (#1)2025 03/22/2020Cervical Cancer Mnnwscbcz69/05/2029HPV/Csauhn1004/26/2029Pap Smear 911/10/2023, 3Pneumococcal Vaccine: Pediatrics (0 to 5 Years) and At-Risk Patients (6 to 64 Years)Aged OutNo longer eligible based on patient's age to complete this topic Goals GoalPatient Goal TypeAssociated ProblemsRecent ProgressPatient-Stated?Author Reminders Care PlanOB RemindersNoOpen Scheduling, Background Procedures Procedure NamePriorityDate/TimeAssociated DiagnosisCommentsIGP,APTIMA HPV,AGE ORBUQzdiepl14/10/2025 10:00 AM EST [facility] PREG QUANT LJALuthxpi95/03/2025 10:55 AM EST ALL CBC WITH AUTO FEINBlmgovr41/08/2024 10:55 AM EST ALL TYPE AND UBQIEOZpxejtd23/31/2025 8:25 AM EDT ECG 12-LEAD04/21/2025 6:22 AM EDT US OB CAEHCYAAVYTBHipqcck51/30/2025 1:43 PM EDT Missed menses [facility] PAP OCTMLGqvvyxv53/05/2024 12:00 AM ESTfrom Last 3 Months or Most Recently Relevant to Health Maintenance Results * IGP,APTIMA HPV,AGE GDLN (05/01/2025 10:00 AM EST)ComponentValueRef RangeTest MethodAnalysis TimePerformed AtPathologist SignatureAGE GDLN ACOG TESTINGNote. TBHComment: ?? TESTS ? RESULT ??FLAG ??UNITS ?REF RANGE ??LAB ?? Clinician Provided Cytology Information ?? Source.............Cervix;Endocervix ?? No. of containers..01 ThinPrep Vial Age Algo ACOG Mini... ??30-65 ? 01 ?FLAG LEGEND: ?L-Low Normal,H-High Normal,LL-Alert Low,HH-Alert High <-Panic Low,>-Panic High,A-Abnormal,AA-Critical Abnormal Performed at: 01 =G ?[facility] ?? [address] [place] [place] ??[phone] ?? Rocío Hong MD, IGP, APTIMA HPV, RFX 16/18,45Note.TBHComment: ?? TESTS ? RESULT ??FLAG ??UNITS ?REF RANGE ??LAB DIAGNOSIS: ?02 ?? NEGATIVE FOR INTRAEPITHELIAL LESION OR MALIGNANCY. ?? REACTIVE CELLULAR CHANGES AND/OR REPAIR ARE PRESENT. Specimen adequacy: ?02 ?? Satisfactory for evaluation. ??Endocervical and/or squamous metaplastic ?? cells (endocervical component) are present. Performed by: ? 02 ?? Floyd Alfredo, Traffic Incident Management Manager (ASCP) Electronically si... ?02 ?? Berna Gama MD, Pathologist . ? 02 Note: ? Note ?02 ?? The Pap smear is a screening test designed to aid in the ?? detection of premalignant and malignant conditions of the ?? uterine cervix. ??It is not a diagnostic procedure and ?? should not be used as the sole means of detecting cervical ?? cancer. ??Both false-positive and false-negative reports do ?? occur. Test Methodology: ? Note ?02 ?? This liquid based ThinPrep(R) pap test was interpreted ?? using the XDC(R) Lamoda(TM) Cervical Algorithm whole ?? slide imaging system. HPV Genotype Reflex ?? Note ?02 ?? Criteria not met, HPV Genotype not performed. ?FLAG LEGEND: ?L-Low Normal,H-High Normal,LL-Alert Low,HH-Alert High <-Panic Low,>-Panic High,A-Abnormal,AA-Critical Abnormal Performed at: 02 WB ?[facility] ?? [address] [place] ??[phone] ?? Rocío Hong MD, HPV APTIMANegativeNegativeTBHComment: This nucleic acid amplification test detects fourteen high- risk HPV types (16,18,31,33,35,39,45,51,52,56,58,59,66,68) without differentiation. Performed at: ??=G - [facility] [address] ??[id number] Party Plan Sales Unit Advisor: Rocío Hong MD, Phone: ??[phone] Performed at: ??WB - [facility] [address] ??[id number] Party Plan Sales Unit Advisor: Rocío Hong MD, Phone: ??[phone] Specimen (Source)Anatomical Location / LateralityCollection Method / Volume Collection TimeReceived Time05/01/2025 10:00 AM EST05/01/2025 1:48 PM EST Narrative CLINISYNC - 05/04/2025 4:09 PM EST BRUSH-SPATULA CERVIX ENDOCERVIX Authorizing ProviderResult TypeResult StatusCorey Pollo DOLAB BLOOD ORDERABLES Final ResultPerforming OrganizationAddressCity/[facility] CodePhone Number CLINISYMS TBH * TBH PREG QUANT HCG (04/24/2025 10:55 AM EST)ComponentValueRef RangeTest Method Analysis TimePerformed AtPathologist SignatureHCG EGMTOGMXTHOD24,968mIU/mLTBH Comment: 5-50 ? 0.2-1 WEEK 50-500 ? [...] DOCLINISYNCFinal Result Performing OrganizationAddressCity/State/ZIP CodePhone Number CLINISYNC TB * ALL CBC WITH AUTO DIFF (04/24/2025 10:55 AM EST)ComponentValueRef RangeTest MethodAnalysis TimePerformed AtPathologist SignatureTBH WBC8.34.0 - 11.0 10 3/uLTBHTBH RBC4.454.20 - 5.40 10 6/uLTBHTBH HGB13.912.0 - 16.0 g/dLTBHTBH HCT 41.136.0 - 48.0 %TBHTBH MCV92.481.0 - 99.0 fLTBHTBH MCH31.226.7 - 34.0 pgTBH TBH MCHC33.829.9 - 35.2 g/dLTBHTBH RDW13.611.0 - 15.0 %TBHTBH BZZ560407 - 450 10 3/uLTBHTBH MPV10.19.5 - 13.5 [...] Performing OrganizationAddressCity/State/ZIP CodePhone Number CLINISYNC [facility] * ALL TYPE AND SCREEN (04/21/2025 8:25 AM EDT)ComponentValueRef RangeTest Method Analysis TimePerformed AtPathologist SignatureBLOOD TYPEO PositiveTBHANTIBODY SCREENNEGATIVETBHSpecimen (Source)Anatomical Location / LateralityCollection Method / VolumeCollection TimeReceived Time04/21/2025 8:25 AM EDT1 8:30 AM EDT Narrative CLIN[facility]YNC - 04/21/2025 10:18 AM EDT [facility] , ?? Authorizing ProviderResult TypeResult StatusCorey Pollo DOCLINISYNCFinal Result Performing OrganizationAddressCity/State/ZIP CodePhone Number CLINISYNC TBH * ECG 12-LEAD (04/21/2025 6:22 AM EDT)Anatomical RegionLateralityModalityOther Specimen (Source)Anatomical Location / LateralityCollection Method / Volume Collection TimeReceived Time04/21/2025 6:22 AM EDT Narrative 04/21/2025 9:04 AM EDT [facility] ?[address] ? [place] [address] ? Electrocardiograph Report ? Signed ? Patient: AMY ALFARO ?MR#: [id number] ?? : 1980 ?Acct:[id number] ?? Age/Sex: 44 / F ?ADM Date: 04/21/25 ?? Loc: PST ? Attending Dr: Ivan Abad D.O. ? Ordering Physician: Ivan Abad D.O. ?? Date of Service: 04/21/25 ?? Procedure(s): ECG 12 lead ?? Accession Number(s): [id number] ? cc: ?[facility] ? Test Date: ?2025-04-21 ?? Pat Name: ? AMY ALFARO ? Department: ? Room: ? - ?? Gender: ? Female ? Bean Weigher: ? : ?1980 ? Requested By: IVAN ABAD ?? Order Number: [id number] ?Reading MD: ?? TYREL ??Jose F RICHMOND ? Measurements ?? Intervals ?Greer ? Rate: ? 47 ? P: ?19 [...] ? Signed By: ?10/31/25 0904 ? DD/ 0622 ? TD/TT: ? Shampoo Assistant: Procedure Note Radiology, Radiologist, - 04/21/2025 [place] [address] Electrocardiograph Report Signed Patient: AMY ALFARO LMR#: [id number] : 1980Acct:[id number] Age/Sex: 44 / FADM Date: 04/21/25 Loc: PST Attending Dr: Ivan Abad D.O. Ordering Physician: Ivan Abad D.O. Date of Service: 04/21/25 Procedure(s): ECG 12 lead Accession Number(s): [id number] cc: [facility] Test Date: 2025-04-21 Pat Name: AMY ALFARO Department: Room: - Gender: Female Bean Weigher: : 1980 Requested By: IVAN ABAD Order Number: [id number] Reading MD: TYREL RICHMOND M.D. Measurements Intervals Greer Rate: 47 P: 19 AR: 131 QRS: 58 QRSD: 93 T: 36 QT: 420 QTc: 373 Interpretive Statements SINUS BRADYCARDIA Borderline ECG No previous ECG available for comparison Electronically Signed On 04-21-2025 9:03:40 EDT by TYREL RICHMOND M.D. Dictated By: TYREL RICHMOND Signed By:04/21/2504 DD/ 06 TD/TT: Shampoo Assistant: Authorizing ProviderResult TypeResult StatusCorey Pollo DOCLINISYNC IMAGINGFinal Result * US OB transvaginal (04/20/2025 1:43 PM EDT)Anatomical RegionLateralityModality BodyUltrasoundSpecimen (Source)Anatomical Location / LateralityCollection Method / VolumeCollection TimeReceived Time04/20/2025 2:45 PM EDT Impressions 04/20/2025 3:23 PM EDT Single intrauterine gestational sac with a single pole, absence of cardiac activity questions viability at this time. Correlate with serial beta hCG and DIRECTOR OF RADIOLOGY consultation. TRANSCRIBED BY: ? ELECTRONICALLY SIGNED BY: [...] this time. Correlate with serialbeta hCG and DIRECTOR OF RADIOLOGY consultation. TRANSCRIBED BY: ELECTRONICALLY SIGNED BY: Donald [...] Additional Health Concerns Active ProblemsNoted DateDiagnosed DateOB Qdvglnvnr99/01/2023 Insurance Care Teams Team MemberRelationshipSpecialtyStart DateEnd Date Cruz Rajan MD [address] [place] [address] PCP - [facility]02/16/23
--- OUTSIDE RECORDS SUMMARY | 2025-05-05 07:47 | XMS_ITS | Clinical Summary ---
Author Organization [facility] Address [address] [place] [address] Care Team Providers Care Supervisor Cab Name Role Phone Abel Patel DO Primary Care Provider Raven Romo Unavailable Allergies Active AllergyReactionsCriticalityNoted DateCommentsSeasonal AllergiesCough 05/11/2014 Medications MedicationSigDispense QuantityRefillsLast FilledStart DateEnd DateStatus multivitamin (DAILY MULTIPLE) tablet Take 1 tablet by mouth once daily.Active Cetirizine (ZYRTEC) 10 mg cap Take 1 capsule by mouth as needed. Active fluticasone (FLONASE) 50 mcg/actuation nasal spray Indications:Bilateral sensorineural hearing loss,Autoimmune disorder of inner earUse 1 Mcarthur in each nostril as needed. Active DOCUSATE SODIUM (COLACE ORAL) Take 1 tablet by mouth as needed.Active predniSONE (DELTASONE) 10 mg tablet Take by mouth four (4) tabs x3 days; then three (3) tabs x3days; then two (2) tabs x3 days; then one (1) tab a day x3 days 30 tablet 09/02/2017Active Active Problems ProblemNoted DateDiagnosed DateCochlear implant follow-up09/29/2017Sensorineural hearing loss, gqmmwutnhtqp30/09/2018Sensorineural hearing loss, bilateral 10/15/2016Vertigo of central kwwpea9605/24/2014Peripheral vertigo, unspecified 05/24/2014Left-sided sensorineural hearing loss Immunizations [...] RecordedNational Score (1-100), lower number is lower pqjm736907/21/2023State Score (1-10), lower number is lower risk5 07/21/2023ata from: https://www.neighborhoodatlas.[facility].edu/. Last address used for pnozwnxhqvf88 [facility]4CommentsNoSex and Gender InformationValueDate RecordedSex Assigned at VjdxsNwtmns38/25/2021 6:25 PM EDTLegal OkdVrgpye53/02/2012 8:33 AM ESTGender KygdgeviWjblrb51/25/2021 6:25 PM EDTSexual NrxlgnvbiwzJfzudmhh59/25/2021 6:25 PM EDT Last Filed Vital Signs Vital SignReadingTime TakenCommentsBlood Zqbcuguw583/7003 1:30 PM EDT Hkjpu1612 1:30 PM SMEMwtswfuhnsv65.6 ??C (97.9 ??F)09/02/2017 1:00 PM EDTRespiratory Forn641509/02/2017 1:30 PM EDTOxygen Oxsodirgim35%09/02/2017 1:30 PM EDTInhaled Oxygen Concentration--Grdfsh84.3 kg (113 lb)08/13/2017 10:36 AM KEMLlufki385 cm (5' 3 )08/13/2017 10:36 AM ESTBody Mass Index20.02008/13/2017 10:36 AM EST Plan of Treatment DateTypeDepartmentCare Team (Latest Contact Info)Aabuibyfitw90/29/2026 2:00 PM ESTOffice Visit Audiology [address] [facility] [address] [place] [address] Raven Romo, AUD [address] [place], [place] [address] CI follow up07/20/2025 3:30 PM ESTOffice Visit Otolaryngology [address] [facility] [address] [place] [address] Eliezer Becker PA-C [address] [facility] [address] [address] CI CheckHealth MaintenanceDue DateLast DoneCommentsAnxiety Zwxsgvdgq77/29/1998 Depression Klpetytqm54/29/1998HIV Rantkyppv20/29/1998Hepatitis C Screening 11/17/1997Hepatitis B Vaccine (1 of 3 - 19+ 3-dose series)11/17/1998Cervical Cancer Fcgnqjvra36/29/2001HPV Vaccine (1 - 3-dose SCDM series)11/17/2006 Mammogram Fxtsonuen68/29/2020CT Ldmtfiyksuas28/29/2025ologuard (FIT-DNA) 11/17/20245257Jpdaxpikrcv99/29/2025olorectal Cancer Gqmswsyzi65/29/2025Diabetes Rycipuold46/29/27427308/13/2017Fecal Occult Blood11/17/2024Lipid Screening 11/17/20243377Lfhclnmtcjwyq45/29/2025ovid-19 Vaccine ( season)2025 08/25/2021, 07/21/2021Influenza Vaccine (#1)Pneumococcal Vaccine (3 of 3 - PCV20 or PCV21), 08/10/2014DTaP,Tdap,Td Vaccine (3 - Td or Tdap), 08/20/2020 Medical Devices ImplantedTypeAreaManufacturerDevice IdentifierShelf Expiration DateModel / Serial / LotImplant Nucleus Cochlear Slim Modiolar Electrode [id number] Sterile Latex Free - [id number] Implanted:Qty: 1 [facility]02/2017 [facility] HospitalImplantLeft: EarCOCHLEAR 07/16/[id number] / / [id number]-Wx-I-Mazb Implant - [id number] Implanted:Qty: 1 on 09/02/2017 [facility] [id number] / / Description:[employer] Procedures Procedure NamePriorityDate/TimeAssociated DiagnosisCommentsBASIC METABOLIC PANEL Kubrbse8208/13/2017 11:26 AM EST Pre-operative examination Sensorineural hearing loss (SNHL) of left ear, unspecified hearing status on contralateral side from Last 3 Months or Most Recently Relevant to Health Maintenance Results * BASIC METABOLIC PNL (08/13/2017 11:26 AM EST)ComponentValueRef RangeTest MethodAnalysis TimePerformed AtPathologist FwxehzibjBcvgkfg3061 - 99 mg/dL 08/13/2017 2:26 PM [facility]STMERCY [facility]IN LABORATORYComment: The [place] Diabetes Association (ADA) provides guidance for cutoff [...] Standards of Medical Care in Diabetes 2016, [place] Diabetes Association. Diabetes Care. 2016.39(Suppl 1). DFN732 - 21 mg/dL08/13/2017 2:26 PM [facility] Creatinine0.830.58 - 0.96 mg/dL08/13/2017 2:26 PM [facility] NAHBGDUVPQPlxilf541145 - 144 mmol/L08/13/2017 2:26 PM [facility] LABORATORYPotassium4.63.7 - 5.1 mmol/L08/13/2017 2:26 PM [facility] MSJHBZPUNHIunbxfjd78879 - 105 mmol/L08/13/2017 2:26 PM [facility] YXXWNKSPABGX43855 - 30 mmol/L08/13/2017 2:26 PM [facility] LABORATORYAnion Pbk643 - 18 mmol/L08/13/2017 2:26 PM [facility] LABORATORYCalcium9.18.5 - 10.2 mg/dL08/13/2017 2:26 PM [facility] LABORATORYeGFR->6002 2:26 PM [facility] LABORATORYeGFR-All Other Races>60.08/13/2017 2:26 PM [facility] LABORATORYComment: eGFR (Estimated GFR) Units of measure: [...] StatusGisellpatricia Knutson MDLABORATORYFinal ResultPerforming OrganizationAddressCity/State/ZIP CodePhone Number [facility] [address] [place] [address] from Last 3 Months or Most Recently Relevant to Health Maintenance Insurance * Guarantor: Amy DOMÍNGUEZ TypeRelation to PatientDate of BirthPhone Billing AddressSelf SaxCccx55 [address] [place] [address] Care Teams Team MemberRelationshipSpecialtyStart DateEnd Date Abel Patel DO PCP - GeneralFamily Medicine03/15/14 Raven Romo AUD [address] [place] [address] Care PartnerAudselect medical specialty hospital - [facility]01/12/24
--- OUTSIDE RECORDS SUMMARY | 2025-05-05 07:47 | XMS_ITS | Encounter Summary ---
Author Organization [facility] Address [address] [place] [address] Care Team Providers Care Visual Basic .Net Developer Name Role Phone Cruz Rajan MD Primary Care Provider [phone] Encounter Details DateTypeDepartmentCare Team (Latest Contact Info)Tcvtjejofyf50/27/2024Clinisync Result Encounter [facility] External Department Unsolicited Ivan Abad, DO [address] [place] [address] Social History Tobacco UseTypesPacks/DayYears UsedDateSmoking Tobacco: NeverSmokeless Tobacco: NeverAlcohol UseStandard Drinks/WeekCommentsNot Currently0 (1 standard drink = 0.6 oz pure alcohol)occasional alcohol use, Caffeine intake: none CommentsYesSex and Gender InformationValueDate RecordedSex Assigned at Txktrw7801/21/2023 8:01 PM EDTLegal KpvUdkzps19/15/2023 6:58 PM EDTGender Identity Zizpwv9601/21/2023 8:01 PM EDTSexual BgwgaubwlbgPqnzpbrf54/02/2023 8:01 PM EDT documented as of this encounter Plan of Treatment DateTypeDepartmentCare Team (Latest Contact Info)Kkhuqbjzngw24/16/2026 11:00 AM ESTProcedure Visit [facility] [place] [facility] [address] [facility] [place] [phone] Ivan Abad, DO [address] [place] [address] documented as of this encounter Goals GoalPatient Goal TypeAssociated ProblemsRecent ProgressPatient-Stated?Author Reminders Care PlanOB RemindersNoOpen Scheduling, Backgrounddocumented as of this encounter Procedures Procedure NamePriorityDate/TimeAssociated DiagnosisCommentsUS OB BPP W NON-NNHZRP4208/18/2023 3:33 PM EST documented in this encounter Results * US OB BPP W NON-STRESS (08/18/2023 3:33 PM EST)Anatomical Region LateralityModalityOtherSpecimen (Source)Anatomical Location / Laterality Collection Method / VolumeCollection TimeReceived Time08/18/2023 3:33 PM EST Narrative 08/18/2023 3:36 PM EST [facility] ?[address] ? [place] [address] ? Ultrasound Report ? Signed ? Patient: AMY ALFARO ?MR#: [id number] ?? : 1980 ?Acct:[id number] ?? Age/Sex: 42 / F ?ADM Date: 08/18/23 ?? Loc: [facility] ??250-1 ? Attending Dr: Ivan Abad D.O. ? Ordering Physician: Ivan Abad D.O. ?? Date of Service: 08/18/23 ?? Procedure(s): US OB BPP w non-stress ?? Accession Number(s): [id number] ? cc: Ivan Abad D.O.; Cruz Rajan M.D. ? [facility] ? [address] ? [place] [address] ? Patient Name: ?? AMY ALFARO ? MRN: [id number] ? date: 1980 ?Sex: F ?? Assigned Patient Location: ?? Current Patient Location: [place] ?? Accession/Order Number: [id number] ?? Exam Date: 08/18/2023 ??15:05 ?Report Date: [...] ?08/18/231535 ? DD/ 1533 ? TD/TT: ? Water Meter Reader: Procedure Note Radiology, Radiologist, - 08/26/2023 [place] [address] Ultrasound Report Signed Patient: AMY ALFARO LMR#: [id number] : 1980Acct:[id number] Age/Sex: 42 / FADM Date: 08/18/23 Loc: [facility] 250-[address]: Ivan Abad D.O. Ordering Physician: Ivan Abad D.O. Date of Service: 08/18/23 Procedure(s): US OB BPP w non-stress Accession Number(s): [id number] cc: Ivan Abad D.O.; Cruz Rajan M.D. [facility] [place] [id number] Patient Name: AMY ALFARO MRN: [id number] date: 1980 Sex: F Assigned Patient Location: [place] Current Patient Location: [place] Accession/Order Number: [id number] Exam Date: 08/18/2023 15:05 Report Date: 08/18/2023 [...] Batres M.D. Signed By:08/18/231535 DD/ 32 TD/TT: Water Meter Reader: Authorizing ProviderResult TypeResult StatusCorey Pollo DOCLINISYNC IMAGINGFinal Result documented in this encounter Visit Diagnoses Not on filedocumented in this encounter Additional Health Concerns Active ProblemsNoted DateDiagnosed DateOB Mofjazfir13/01/2023 documented as of this encounter Care Teams Team MemberRelationshipSpecialtyStart DateEnd Date Cruz Rajan MD [address] [place] [address] [facility]02/16/23documented as of this encounter
--- OUTSIDE RECORDS SUMMARY | 2025-05-05 07:47 | XMS_ITS | Encounter Summary ---
Author Organization [facility] Address [address] [place] [address] Care Team Providers Care Juvenile Justice Specialist Name Role Phone Cruz Rajan MD Primary Care Provider [phone] Encounter Details DateTypeDepartmentCare Team (Latest Contact Info)Yngcyuzmwbq29/09/2025Travel Social History Tobacco UseTypesPacks/DayYears UsedDateSmoking Tobacco: NeverSmokeless Tobacco: NeverAlcohol UseStandard Drinks/WeekCommentsNot Currently0 (1 standard drink = 0.6 oz pure alcohol)occasional alcohol use, Caffeine intake: none CommentsNoSex and Gender InformationValueDate RecordedSex Assigned at Djkynm1001/21/2023 8:01 PM EDTLegal BdtUyhalv05/15/2023 6:58 PM EDTGender Identity Oerfxt2301/21/2023 8:01 PM EDTSexual HkbyziljoquRqrtocae31/02/2023 8:01 PM EDT documented as of this encounter Plan of Treatment DateTypeDepartmentCare Team (Latest Contact Info)Folriwnsqjc42/16/2026 11:00 AM ESTProcedure Visit [facility] [place] [facility] [address] [facility] [place] [phone] Camron Abad DO [address] [facility] [place] [address] documented as of this encounter Goals GoalPatient Goal TypeAssociated ProblemsRecent ProgressPatient-Stated?Author Reminders Care PlanOB RemindersNoOpen Scheduling, Backgrounddocumented as of this encounter Visit Diagnoses Not on filedocumented in this encounter Additional Health Concerns Active ProblemsNoted DateDiagnosed DateOB Pmnxpsfij02/01/2023 documented as of this encounter Care Teams Team MemberRelationshipSpecialtyStart DateEnd Date Cruz Rajan MD [address] [place] [address] PCP - General02/16/23documented as of this encounter
--- OUTSIDE RECORDS SUMMARY | 2025-05-05 07:48 | XMS_ITS | Patient Health Record ---
Author Organization The [facility] in [place] Address [address] [place] [address] Care Team Providers Care Digital Photo Printer Name Role Phone Lukas Rajan Primary Care Provider Keerthi Stephens Unavailable [phone] Allergies No Known Allergies Results Component Value Reference Range Notes CBC AUTO DIFF Reviewed date:04/24/2025 07:25:10 PM Interpretation: Performing Lab: Notes/Report: [facility] , White Blood Count 8.3 4.0-11.0 10 3/uL Red Blood Count4.454.20-5.40 10 6/hCUkdyxlagup09.912.0-16.0 g/qGMlnjtrhwtx38.1 36.0-48.0 %Mean Corpuscular Xbzhms95.481.0-99.0 fLMean Corpuscular Hemoglobin 31.226.7-34.0 pgMean Corpuscular HGB Conc33.829.9-35.2 g/dLRed Cell Distribution Width13.611.0-15.0 %Platelet Bdqut652861-571 10 3/uLMean Platelet Uzziog37.19.5- 13.5 fLNeutrophils Percent Auto66.843.0-75.0 %Lymphocytes Percent Auto24.520.5- 60.0 %Monocytes Percent Auto6.41.7-12.0 %Eosinophils Percent Auto1.70.9-7.0 % Basophils Percent Auto0.40.2-2.0 %Immature Granulocytes Pct Auto0.20.0-0.5 % Neutrophils Absolute Auto5.51.4-6.5 10 3/uLLymphocytes Absolute Auto2.01.2-3.8 10 3/uLMonocytes Absolute Auto0.50.3-0.8 10 3/uLEosinophils Absolute Auto0.10.0- 0.7 10 3/uLBasophils Absolute Auto0.00.0-0.1 10 3/uLImmature Granulocytes Abs Auto0.020.00-0.03 10 3/uLPerforming Lab:see noteML - [facility] LB PREG QUANT HCG Reviewed date:04/24/2025 07:25:10 PM Interpretation: Performing Lab: Notes/Report: [facility] ,HCG Sphdltwqtxez17846 5-50 0.2-1 WEEK 50-500 1-2 WEEKS 100-5,000 2-3 WEEKS 500-10,000 3-4 WEEKS 1,000-50,000 4-5 WEEKS 10,000-100,000 5-6 WEEKS 15,000-200,000 6-8 WEEKS 10,000-100,000 2-3 MONTHS Performing Lab:see noteML - [facility] LBIGP,Aptima HPV,Age Gdln Reviewed date:05/04/2025 05:53:49 PM Interpretation: Performing Lab: Notes/Report: BRUSH-SPATULA CERVIX ENDOCERVIX [facility] ,Age Gdln ACOG TestingNote. TESTS RESULT FLAG UNITS REF RANGE LAB Clinician Provided Cytology Information Source.............Cervix;Endocervix No. of containers..01 ThinPrep Vial Age Algo ACOG Mini... FLAG LEGEND: L-Low Normal,H-High Normal,LL-Alert Low,HH-Alert High <-Panic Low,>-Panic High,A-Abnormal,AA-Critical Abnormal Performed at: 01 =[facility] [address] [facility] [place] [address] Rocío Hong MD, IGP, Aptima HPV, rfx 16/18,45Note. TESTS RESULT FLAG UNITS REF RANGE LAB DIAGNOSIS: 02 NEGATIVE FOR INTRAEPITHELIAL LESION OR MALIGNANCY. REACTIVE CELLULAR CHANGES AND/OR REPAIR ARE PRESENT. Specimen adequacy: 02 Satisfactory for evaluation. Endocervical and/or squamous metaplastic cells (endocervical component) are present. Performed by: 02 Floyd Alfredo, Night Order Selector (ASCP) Electronically si... 02 Berna Gama MD, Pathologist . 02 Note: Note 02 The Pap [...] liquid based ThinPrep(R) pap test was interpreted using the Sumpto(R) Genius(TM) Cervical Algorithm whole slide imaging system. HPV Genotype Reflex Note 02 Criteria not met, HPV Genotype not performed. FLAG LEGEND: L-Low Normal,H-High Normal,LL-Alert Low,HH-Alert High <-Panic Low,>-Panic High,A-Abnormal,AA-Critical Abnormal Performed at: [address] [address] Rocío Hong MD, HPV AptimaNegativeNegative This nucleic acid amplification test detects fourteen high- risk HPV types (16,18,31,33,35,39,45,51,52,56,58,59,66,68) without differentiation. Performed at: = - [facility] [id number] Field Enumerator: Rocío Hong MD, Phone: [phone] Performed at: [address] [id number] Field Enumerator: Rocío Hong MD, Phone: [phone] Performing Lab:[facility]ST[facility] LBECG 12 lead Reviewed date:04/22/2025 12:32:22 PM Interpretation: Performing Lab: Notes/Report: Source Facility: [place] [address] Electrocardiograph Report Signed Patient: AMY DOMÍNGUEZ MR#: [id number] : 1980 Acct:[id number] Age/Sex: 44 / F ADM Date: 04/21/25 Loc: [facility] Attending Dr: Ivan Abad D.O. Ordering Physician: Ivan Abad D.O. Date of Service: 04/21/25 Procedure(s): ECG 12 lead Accession Number(s): [id number] cc: [facility] Test Date: 2025-04-21 Pat Name: AMY DOMÍNGUEZ Department: Room: - Gender: Female Audio/Visual Operator: : 1980 Requested By: IVAN ABAD Order Number: [id number] Jose MD: TYREL RICHMOND M.D. Measurements Intervals [place] Rate: 47 P: 19 AL: 131 QRS: 58 QRSD: 93 T: 36 QT: 420 QTc: 373 Interpretive Statements SINUS BRADYCARDIA Borderline ECG No previous ECG available for comparison Electronically Signed On 04-21-2025 9:03:40 EDT by TYREL RICHMOND M.D. Dictated By: TYREL RICHMOND Signed By: 04/21/25903 DD/ 1 TD/TT: Rubber Mill Operator:Type and Screen Reviewed date:04/22/2025 12:32:22 PM Interpretation: Performing Lab: Notes/Report: [facility] ,Blood TypeO PositiveAntibody ScreenNEGATIVE Reason For [...] alcohol in the p ast year? No Gsaawv1HvwlucofkjinliBxjvklqi Vital Signs Heart Rate 72 /min 11/22/2024 Yhxbqasm85 %11/22/2024lood pressure ddxilscsk90 mm Hg11/22/20247902Vqqpra05 in 11/22/2024lood pressure twaerdgs577 mm Hg11/22/20244522Iqmvoy806.8 lbs11/22/2024MI 21.4 kg/m211/22/2024 Encounters Encounter Location Date Provider Diagnosis [facility] [address] [place] [address] 11/22/2024 Keerthi Stephens Bronchitis J40 Assessments Encounter [...] ACCESS PPO PLUS LOCAL PLAN [address] [place] [address] [id number] Ankush Domínguez - patient is the insured Medical (General) History Surgical History Surgery Date(Month/Year) Cochlear implant
--- OUTSIDE RECORDS SUMMARY | 2025-05-05 07:48 | XMS_ITS | Encounter Summary ---
Author Organization [facility] Address [address] [place] [address] Care Team Providers Care Foundry Molder Name Role Phone Cruz Rajan MD Primary Care Provider [phone] Encounter Details DateTypeDepartmentCare Team (Latest Contact Info)Tpnjqpvwnyy69/10/2025linisync Result Encounter [facility] External Department Unsolicited Camron Abad, DO [address] [place] [address] Social History Tobacco UseTypesPacks/DayYears UsedDateSmoking Tobacco: NeverSmokeless Tobacco: NeverAlcohol UseStandard Drinks/WeekCommentsNot Currently0 (1 standard drink = 0.6 oz pure alcohol)occasional alcohol use, Caffeine intake: none CommentsNoSex and Gender InformationValueDate RecordedSex Assigned at Wkxvmi5201/21/2023 8:01 PM EDTLegal DtxEfelhp50/15/2023 6:58 PM EDTGender Identity Qbesgy1501/21/2023 8:01 PM EDTSexual WkngfjyqqdgJkeprcvr07/02/2023 8:01 PM EDT documented as of this encounter Plan of Treatment DateTypeDepartmentCare Team (Latest Contact Info)Kbhbvujwiey02/16/2026 11:00 AM ESTProcedure Visit [facility] [address] [facility] [place] [phone] Camron Abad, DO [address] [place] [address] documented as of this encounter Goals GoalPatient Goal TypeAssociated ProblemsRecent ProgressPatient-Stated?Author Reminders Care PlanOB RemindersNoOpen Scheduling, Backgrounddocumented as of this encounter Procedures Procedure NamePriorityDate/TimeAssociated DiagnosisCommentsIGP,APTIMA HPV,AGE FAZPXjwteub35/10/2025 10:00 AM EST documented in this encounter Results * IGP,APTIMA HPV,AGE GDLN (05/01/2025 10:00 [...] at: 01 =G ?[facility] [place] ?? [address] [place], [place] ??[address] ?? Rocío Hong MD, IGP, APTIMA HPV, RFX 16/18,45Note.TBHComment: ?? TESTS ? RESULT ??FLAG ??UNITS ?REF RANGE ??LAB DIAGNOSIS: ?02 ?? NEGATIVE FOR INTRAEPITHELIAL LESION OR MALIGNANCY. ?? REACTIVE CELLULAR CHANGES AND/OR REPAIR ARE PRESENT. Specimen adequacy: ?02 ?? Satisfactory for evaluation. ??Endocervical and/or squamous metaplastic ?? cells (endocervical component) are present. Performed by: ? 02 ?? Floyd Alfredo Sanitation Engineer (ASCP) Electronically si... ?02 ?? Berna Gmaa MD, Pathologist . ? 02 Note: ? [...] pap test was interpreted ?? using the HowDo(R) SureSpeak(TM) Cervical Algorithm whole ?? slide imaging system. HPV Genotype Reflex ?? Note ?02 ?? Criteria not met, HPV Genotype not performed. ?FLAG LEGEND: ?L-Low Normal,H-High Normal,LL-Alert Low,HH-Alert High <-Panic Low,>-Panic High,A-Abnormal,AA-Critical Abnormal Performed at: 02 WB ?[facility] ?? [address] [place] ??[address] ?? Rocío Hong MD, HPV APTIMANegativeNegativeTBHComment: This nucleic acid amplification test detects fourteen high- risk HPV types (16,18,31,33,35,39,45,51,52,56,58,59,66,68) without differentiation. Performed at: ??=G - [facility] [place] [address] [facility], [place] ??[id number] Pleat Taper: Rocío Hong MD, Phone: ??[phone] Performed at: ??WB - [facility] [place] [address] [facility] [place], [place] ??[id number] Pleat Taper: Rocío Hong MD, Phone: ??[phone] Specimen (Source)Anatomical Location / LateralityCollection Method / Volume Collection TimeReceived Time05/01/2025 10:00 AM EST05/01/2025 1:48 PM EST Narrative [facility] - 05/04/2025 4:09 PM EST BRUSH-SPATULA CERVIX ENDOCERVIX Authorizing ProviderResult TypeResult StatusCorey Pollo DOLAB BLOOD ORDERABLES Final ResultPerforming OrganizationAddressCity/State/ZIP CodePhone Number [facility] documented in this encounter Visit Diagnoses Not on filedocumented in this encounter Additional Health Concerns Active ProblemsNoted DateDiagnosed DateOB Qxbtwygbg66/01/2023 documented as of this encounter Care Teams Team MemberRelationshipSpecialtyStart DateEnd Date Cruz Rajan MD [address] [place] [address] PCP - [facility]02/16/23documented as of this encounter
--- OUTSIDE RECORDS SUMMARY | 2025-05-05 07:48 | XMS_ITS | Clinical Summary ---
Author Organization [employer] Address [id number] [place] [address] Care Team Providers Care Sap Bpc Architect Name Role Phone Cruz Rajan MD Primary Care Provider [phone] Social History Tobacco UseTypesPacks/DayYears UsedDateSmoking Tobacco: Never Assessed CommentsNoSex and Gender InformationValueDate RecordedSex Assigned at BirthNot on fileLegal KbtLgxkat71/06/2023 1:43 PM EDTGender IdentityNot on fileSexual OrientationNot on file Plan of Treatment Health MaintenanceDue DateLast DoneCommentsDepression Opgfvigmq86/29/1992Tobacco Drgvblzzk09/29/1992Adult BMI Ovkpalhpw22/29/1998Pap Smear11/17/2000COVID-19 Vaccine ( season)503/11/2021, 07/21/2021Influenza Vaccine /06/2019DTaP,Tdap and Td Vaccines (2 - Tdap)/06/2020 Medical Devices Not on file Insurance Care Teams Team MemberRelationshipSpecialtyStart DateEnd Date Cruz Rajan MD [facility] L[facility]ush[facility]
--- OUTSIDE RECORDS SUMMARY | 2025-05-05 07:48 | XMS_ITS | Encounter Summary ---
Author Organization [facility] Address [address] [place] [address] Care Team Providers Care Drill Foreman Name Role Phone Cruz Rajan MD Primary Care Provider [phone] Encounter Details DateTypeDepartmentCare Team (Latest Contact Info)Slvcptkehgk15/11/2025bstract [facility] [address] [place] [address] Nivia Pedersen MA Social History Tobacco UseTypesPacks/DayYears UsedDateSmoking Tobacco: NeverSmokeless Tobacco: NeverAlcohol UseStandard Drinks/WeekCommentsNot Currently0 (1 standard drink = 0.6 oz pure alcohol)occasional alcohol use, Caffeine intake: none CommentsNoSex and Gender InformationValueDate RecordedSex Assigned at Idjifk7001/21/2023 8:01 PM EDTLegal HngRphutl66/15/2023 6:58 PM EDTGender Identity Inmjhb4801/21/2023 8:01 PM EDTSexual BjsbvwswjybDninrxby16/02/2023 8:01 PM EDT documented as of this encounter Plan of Treatment DateTypeDepartmentCare Team (Latest Contact Info)Rfvjspagbyj95/16/2026 11:00 AM ESTProcedure Visit [facility] [address] [place] [address] Camron Abad DO [address] [facility] [address] [place], [place] [address] documented as of this encounter Goals GoalPatient Goal TypeAssociated ProblemsRecent ProgressPatient-Stated?Author Reminders Care PlanOB RemindersNoOpen Scheduling, Backgrounddocumented as of this encounter Visit Diagnoses Not on filedocumented in this encounter Additional Health Concerns Active ProblemsNoted DateDiagnosed DateOB Ynnwpwcov07/01/2023 documented as of this encounter Care Teams Team MemberRelationshipSpecialtyStart DateEnd Date Cruz Rajan MD [address] [place] [address] PCP - General02/16/23documented as of this encounter
--- OUTSIDE RECORDS SUMMARY | 2025-05-05 07:48 | XMS_ITS | Encounter Summary ---
Author Organization [facility] Address [address] [place] [address] Care Team Providers Care Match Marker Name Role Phone Cruz Rajan MD Primary Care Provider [phone] Encounter Details DateTypeDepartmentCare Team (Latest Contact Info)Vrypxwvptyj10/31/2025linisync Result Encounter [facility] External Department Unsolicited Ivan Abad, DO [address] [place] [address] Social History Tobacco UseTypesPacks/DayYears UsedDateSmoking Tobacco: NeverSmokeless Tobacco: NeverAlcohol UseStandard Drinks/WeekCommentsNot Currently0 (1 standard drink = 0.6 oz pure alcohol)occasional alcohol use, Caffeine intake: none CommentsNoSex and Gender InformationValueDate RecordedSex Assigned at Njharz4701/21/2023 8:01 PM EDTLegal YanMnzzwb42/15/2023 6:58 PM EDTGender Identity Oxqpab3301/21/2023 8:01 PM EDTSexual DlmpcntyqaiTxytpgle09/02/2023 8:01 PM EDT documented as of this encounter Plan of Treatment DateTypeDepartmentCare Team (Latest Contact Info)Sayoxcblbkk71/16/2026 11:00 AM ESTProcedure Visit [facility] [place] [facility] [address] [facility] [place] [address] Ivan Abad, DO [address] [place] [address] documented as of this encounter Goals GoalPatient Goal TypeAssociated ProblemsRecent ProgressPatient-Stated?Author Reminders Care PlanOB RemindersNoOpen Scheduling, Backgrounddocumented as of this encounter Procedures Procedure NamePriorityDate/TimeAssociated DiagnosisCommentsALL TYPE AND SCREEN Mxjpggi2104/21/2025 8:25 AM EDT ECG 12-LEAD04/21/2025 6:22 AM EDT documented in this encounter Results * ALL TYPE AND SCREEN (04/21/2025 8:25 AM EDT)ComponentValueRef RangeTest Method Analysis TimePerformed AtPathologist SignatureBLOOD TYPEO PositiveTBHANTIBODY SCREENNEGATIVETBHSpecimen (Source)Anatomical Location / LateralityCollection Method / VolumeCollection TimeReceived Time04/21/2025 8:25 AM EDT1 8:30 AM EDT Narrative [facility] - 04/21/2025 10:18 AM EDT [facility] , ?? Authorizing ProviderResult TypeResult StatusCorey Pollo DOCLINISYNCFinal Result Performing OrganizationAddressCity/State/ZIP CodePhone Number [facility] * ECG 12-LEAD (04/21/2025 6:22 AM EDT)Anatomical RegionLateralityModalityOther Specimen (Source)Anatomical Location / LateralityCollection Method / Volume Collection TimeReceived Time04/21/2025 6:22 AM EDT Narrative 04/21/2025 9:04 AM EDT [facility] ?[address] ? [place] [address] ? Electrocardiograph Report ? Signed ? Patient: AMY ALFARO Shravan ?MR#: [id number] ?? : 1980 ?Acct:[id number] ?? Age/Sex: 44 / F ?ADM Date: 04/21/25 ?? Loc: PST ? Attending Dr: Ivan Abad D.O. ? Ordering Physician: Ivan Abad D.O. ?? Date of Service: 04/21/25 ?? Procedure(s): ECG 12 lead ?? Accession Number(s): [id number] ? cc: ?[facility] ? Test Date: ?2025-04-21 ?? Pat Name: ? AMY ALFARO ? Department: ? Room: ? - ?? Gender: ? Female ? Activities Director: ? : ?1980 ? Requested By: IVAN ABAD ?? Order Number: [id number] ?Reading MD: ?? TYREL ??Jose F RICHMOND ? Measurements ?? Intervals ?[place] ? Rate: ? 47 ? P: ?19 ?? SD: ? 131 ?QRS: ?58 ?? QRSD: ? 93 ? T: ?36 ?? QT: ? 420 ? QTc: ?373 ? Interpretive Statements ?? SINUS BRADYCARDIA ?? Borderline ECG ?? No previous ECG available for comparison ?? Electronically Signed On 04-21-2025 9:03:40 EDT by TYREL ??Jose F RICHMOND ? Dictated By: ?TYREL RICHMOND ? Signed By: ?10/31/25 0904 ? DD/ 1 ? TD/TT: ? Cyanide Furnace Operator: Procedure Note Radiology, Radiologist, MD - 04/21/2025 [place] [address] Electrocardiograph Report Signed Patient: AMY ALFARO LMR#: [id number] : 1980Acct:[id number] Age/Sex: 44 / FADM Date: 04/21/25 Loc: [facility] Attending Dr: Ivan Abad D.O. Ordering Physician: Ivan Abad D.O. Date of Service: 04/21/25 Procedure(s): ECG 12 lead Accession Number(s): [id number] cc: [facility] Test Date: 2025-04-21 Pat Name: AMY ALFARO Department: Room: - Gender: Female Activities Director: : 1980 Requested By: IVAN ABAD Order Number: [id number] Reading MD: TYREL RICHMOND M.D. Measurements Intervals [place] Rate: 47 P: 19 SD: 131 QRS: 58 QRSD: 93 T: 36 QT: 420 QTc: 373 Interpretive Statements SINUS BRADYCARDIA Borderline ECG No previous ECG available for comparison Electronically Signed On 04-21-2025 9:03:40 EDT by TYREL RICHMOND M.D. Dictated By: TYREL RICHMOND Signed By:04/21/25903 DD/ 1 TD/TT: Cyanide Furnace Operator: Authorizing ProviderResult TypeResult StatusCorey Pollo DOCLINISYNC IMAGINGFinal Result documented in this encounter Visit Diagnoses Not on filedocumented in this encounter Additional Health Concerns Active ProblemsNoted DateDiagnosed DateOB Dxoonchfs27/01/2023 documented as of this encounter Care Teams Team MemberRelationshipSpecialtyStart DateEnd Date Cruz Rajan MD [address] [place] [address] PCP - General02/16/23documented as of this encounter
== END 2025-05-22 08:30 | disposition home or self-care (01) ==
LOC: LAB 07:42
PROVIDERS: PCP Family Medicine; Visit Provider Nurse Practitioner Family
DX: O03.9 Complete or unspecified spontaneous abortion without complication (principal); Z51.81 Encounter for therapeutic drug level monitoring
CPT/HCPCS: 36415; 84702